=== PATIENT | female | born 1935 | race Caucasian/White ===

== ENCOUNTER 2017-06-29 09:30 | Inpatient (IN) | payer MEDICARE, SELFPAY ==
[2017-06-07 09:55] VITALS: BP 132/88; PULSE 75; RESP 16; TEMP 37.1; O2SAT 95; BMI 32.9
--- NOTE | 2017-06-07 10:26 | SDCEKG_ITS ---
Test Reason : Blood Pressure : / mmHG Vent. Rate : 071 BPM Atrial Rate : 071 BPM P-R Int : 200 ms QRS Dur : 078 ms QT Int : 408 ms P-R-T Axes : 064 012 066 degrees QTc Int : 443 ms Normal sinus rhythm Normal ECG Confirmed by VICKY DOVER ([id number]), scientific editor ISAAC BAEZ ([id number] on 06/13/2017 10:00:36 AM Referred By: Jhon Stallings Confirmed By:VICKY DOVER
[2017-06-07 11:02] LABS: Hematocrit 37.4 % (37-47); Hemoglobin 12.2 g/dl (12.0-15.0); Mean Corp Hgb Conc 32.6 g/gl (32-36); Mean Corpuscular Hgb 29.9 pg (27.0-32.0); Mean Corpuscular Volume 91.7 fL (81-99); Mean Platelet Vol. 10.5 fl (6.2-12.0); Platelet Count 285 K/mm3 (150-450); RBC Distribution Width CV 13.4 % (11.6-14.6); RBC Distribution Width SD 44.8 fl (35.1-43.9); Red Blood Count 4.08 M/mm3 (4.2-5.4); White Blood Count 7.6 K/mm3 (4.4-11.0)
[2017-06-07 11:21] LABS: Scan Indicated on CBC? Y/N NO
[2017-06-07 11:34] LABS: Anion Gap 9 (5-15); BUN 16 mg/dL (7-18); BUN/Creat Ratio 16.9 RATIO (10-20); Calcium,Total 8.8 mg/dL (8.5-10.1); Chloride 106 mmol/L (98-107); Creatinine, Serum 0.94 mg/dL (0.55-1.02); EST Glomerular Filtration Rate 60 mL/min (>60); Est Glom Filt Rate - Afr Amer 73 mL/min (>60); Estimated Creatinine Clearance 37.12 ml/min; Glucose 92 mg/dL (70-110); Potassium 4.1 mmol/L (3.5-5.1); Sodium Level 141 mmol/L (136-145)
[2017-06-29] VITALS (15 sets, daily range): BP systolic 121–184; BP diastolic 54–88; PULSE 75–91; RESP 16–18; TEMP 36.1–36.8; O2SAT 92–97; BMI 32.9
[2017-06-29] MEDS: Celecoxib 200 MG Capsule 400 MG PO (10:24)
[2017-06-29] MEDS: Acetaminophen 500 MG Tablet 1000 MG PO ×2 (10:24→20:20)
[2017-06-29] MEDS: oxyCODONE HCl Cr 10 MG Tablet PO (10:25)
[2017-06-29] MEDS: Cefazolin 2 GM in 0.9% Normal Saline 100 ML IV (11:41)
--- NOTE | 2017-06-29 14:15 | RAD_ITS ---
STUDY: X-RAY - RIGHT KNEE REASON FOR EXAM: Female, 81 years old. Total knee replacement. TECHNIQUE: AP and lateral view(s) of the knee. COMPARISON: Comparison is made with prior study dated October 17, 2016. FINDINGS: Normal visualized distal femur. Normal visualized proximal tibia and fibula. Normal proximal tibiofibular articulation. The patient is status post total knee replacement. There is good alignment. Postoperative soft tissue changes. RAD/Knee 1 or 2 Views IMPRESSION: Status post total knee replacement. There is good alignment. Postoperative soft tissue changes. Electronically Signed: Arnaldo Rosenthal MD at 14:51 EST Tel [phone], Service support ,
[2017-06-29] MEDS: Ondansetron 4 MG/2 ML Vial IV (16:54)
[2017-06-29] MEDS: Cefazolin 1 GM/50 ML BAG IV (20:00)
[2017-06-29] MEDS: Senna/Docusate Sodium 1 Tablet 2 TABLET PO (20:19)
[2017-06-29] MEDS: Metoprolol Tartrate 25 MG Tablet PO (20:20)
[2017-06-29] MEDS: Lactated Ringers 1,000 ML 125 ML IV (20:22)
[2017-06-30] VITALS (8 sets, daily range): BP systolic 123–153; BP diastolic 56–76; PULSE 72–81; RESP 16–18; TEMP 36.3–37.5; O2SAT 93–95
[2017-06-30] MEDS: Cefazolin 1 GM/50 ML BAG IV (04:19)
[2017-06-30] MEDS: 0.9% NaCl Peripheral Flush Adult/Peds IV (05:47)
[2017-06-30] MEDS: Levothyroxine 137 MCG Tablet PO (05:48)
[2017-06-30] MEDS: Acetaminophen 500 MG Tablet 1000 MG PO ×3 (05:48→21:57)
[2017-06-30 05:57] LABS: Hematocrit 32.9 % (37-47); Hemoglobin 10.7 g/dl (12.0-15.0); Mean Corp Hgb Conc 32.5 g/gl (32-36); Mean Corpuscular Hgb 30.4 pg (27.0-32.0); Mean Corpuscular Volume 93.5 fL (81-99); Mean Platelet Vol. 10.7 fl (6.2-12.0); Platelet Count 247 K/mm3 (150-450); Red Blood Count 3.52 M/mm3 (4.2-5.4); White Blood Count 9.5 K/mm3 (4.4-11.0)
[2017-06-30 06:07] LABS: Scan Indicated on CBC? Y/N NO
[2017-06-30 06:11] LABS: Anion Gap 6 (5-15); BUN 14 mg/dL (7-18); BUN/Creat Ratio 15.9 RATIO (10-20); Calcium,Total 8.2 mg/dL (8.5-10.1); Chloride 107 mmol/L (98-107); Creatinine, Serum 0.88 mg/dL (0.55-1.02); EST Glomerular Filtration Rate 65 mL/min (>60); Est Glom Filt Rate - Afr Amer 79 mL/min (>60); Estimated Creatinine Clearance 39.65 ml/min; Glucose 114 mg/dL (74-106); Potassium 4.2 mmol/L (3.5-5.1); Sodium Level 141 mmol/L (136-145)
--- NOTE | 2017-06-30 07:32 | PN.ORTHO_ITS ---
Subjective: Patient is resting comfortably in chair at bedside during exam. No adverse events overnight. Patient denies any pain in the right knee. It has been well controlled. She currently denies chest pain, shortness of breath, dizziness, calf pain. Doing well overall. She admits that she lives alone at home and would not be safe for a discharge to home following surgery. She would like to consider discharge to transitional care unit versus fourth floor rehab. She will discuss this with case management. Objective: Patient is alert and oriented ?3. No acute distress at rest. Breathing easily without respiratory distress. Inspection of right knee reveals a dressing that is clean, dry, intact. Negative Kimi bilaterally. Without signs of DVT. Sensation intact light touch bilateral lower extremities. Able to actively plantar and dorsiflex bilateral feet against resistance. Pedal pulses present + 2 bilaterally. Neurovascularly intact. - Physical Exam Vital Signs Temp Pulse Resp BP Pulse Ox 98.9 F 75 16 133/56 H 93 06/30/17 07:22 06/30/17 07:22 06/30/17 07:22 06/30/17 07:22 06/30/17 07:22 Oxygen Delivery Method Room Air Weight: 81.647 kg Body Mass Index (BMI) 32.9 Intake and Output for Last 24 Hours 06/28/17 06/29/17 06/30/17 23:59 23:59 23:59 Intake Total 1669 / 1669 1622 / 1622 Output Total 500 / 500 1125 / 1125 Balance 1169 / 1169 497 / 497 Laboratory Tests Past 24 Hrs 06/30/17 06/30/17 05:12 05:12 WBC 9.5 RBC 3.52 L Hgb 10.7 L Hct 32.9 L MCV 93.5 MCH 30.4 MCHC 32.5 RDW 13.0 RDW Differential 43.0 Plt Count 247 MPV 10.7 Sodium 141 Potassium 4.2 Chloride 107 Carbon Dioxide 28.0 Anion Gap 6 BUN 14 Creatinine 0.88 Estim Creat Clear Calc 39.65 Est GFR (MDRD) Af Amer 79 Est GFR (MDRD) Non-Af 65 BUN/Creatinine Ratio 15.9 Glucose 114 H Calcium 8.2 L Assessment/Plan 1. Status post right TKA; postop day #1 2. Continue Tylenol and OxyIR for pain control 3. DVT prophylaxis; bilateral teds, SCDs and begin aspirin therapy 4. Begin PT/OT; weightbearing as tolerated 5. Drop in hemoglobin/hematocrit, asymptomatic. Without indication for transfusion continue to monitor. 6. Encourage incentive spirometry 7. Continue discharge planning with case management. Will plan for discharge to transitional care unit versus floor floor rehab with insurance approval.
--- NOTE | 2017-06-30 07:36 | PCM.DC.TKR ---
Discharge Diet: No Restrictions Discharge Activity: May Not Drive, May not drive while taking narcotic pain medications., Use Walker May shower in (days): 2 - Okay to shower over Mepilex dressing Ice area for (Minutes): 20 - every hour while awake. Weight Bearing Status: Weight bearing as tolerated Elevate: Operative Extremity Additional Activity Instructions:: Wear elastic stockings for 2 weeks after your surgery. See postoperative pink sheet Call your doctor if your incision/area has: Continuous Slow Oozing, Sudden Increased Bleeding, Increased Pain/ Swelling, Increased Redness, Foul Smelling Discharge Call your doctor if you observe: Fever of 101 or Higher, Coldness, Increased Pain, Numbness or Tingling, Change in Color, Chest pain, Calf discomfort, Uncontrolled pain Remove Dressing in (days):: 5 Cleanse incision/area with: Soap & Water Additional Dressing/Incision Instructions:: See postoperative pink sheet Allergies/Adverse Reactions: Allergies Penicillins Allergy (Verified 06/07/17 09:50) Unknown Medications to take at Discharge Levothyroxine [Synthroid] 150 mcg PO DAILY 05/15/15 Metoprolol Tartrate [Lopressor (beta guy)] 25 mg PO BID 05/15/15 Raloxifene HCl [Evista] 60 mg PO DAILY 06/07/17 losartan 100 mg tablet 100 mg PO QDAY 06/19/17 Acetaminophen [Tylenol] 1,000 mg PO Q8 tablet 06/30/17 Aspirin 325 mg PO BIDCM tablet 06/30/17 Famotidine [Pepcid] 20 mg PO DAILY tablet 06/30/17 Oxycodone [Oxyir] 5 - 10 mg PO Q4H PRN PRN 7 Days #56 tab 06/30/17 Senna/Docusate Sodium [Senokot-S] 2 tablet PO BID tablet 06/30/17 The following prescriptions were given: Oxycodone [Oxyir] 5 - 10 mg PO Q4H PRN PRN 7 Days #56 tab PRN Reason: Mod-Severe Pain (4-02/21) Primary Care Physician: Melvin Weber [Primary Care Provider] - Proposed Discharge Date: 07/01/17
[2017-06-30] MEDS: Senna/Docusate Sodium 1 Tablet 2 TABLET PO ×2 (07:41→21:57)
[2017-06-30] MEDS: Famotidine 20 MG Tablet PO (07:41)
[2017-06-30] MEDS: Aspirin 325 MG Tablet PO ×2 (07:41→17:00)
[2017-06-30] MEDS: Raloxifene HCl 60 MG Tablet PO (07:41)
[2017-06-30] MEDS: Metoprolol Tartrate 25 MG Tablet PO ×2 (07:41→21:57)
--- NOTE | 2017-06-30 08:59 | CASEMGMT ---
Social Work Note Face to face with the pt to discuss discharge planning. Introduced self and role at [facility]. The pt reports to live alone in a one-story home. Family lives locally, but pt would like to get therapy at a SNF prior to discharging home for safety concerns. States she would like to go to [facility] or TCU. Informed that her insurance will not approve [facility], but SW will call TCU to check on bed availability. Educate to pre-cert process and pt expresses understanding. SW to continue to follow and assist with discharge planning. Placed call to [facility] and [facility] requesting placement on TCU. Plan: SNF pending acceptance and pre-cert. Kellee Feng, EDUCATION NURSE, MECHANIC CHIEF
--- NOTE | 2017-06-30 12:17 | CASEMGMT ---
Social Work Note Call from [facility] stating that she can accept and will initiate pre-cert. Anticipate pt being here through weekend. Pt updated that TCU can accept and we are awaiting pre-cert. SW to continue to follow and assist with discharge planning. Plan: TCU pending pre-cert. KESLI HartW
--- NOTE | 2017-06-30 12:44 | NURSING ---
Pt. out of room for lunch.
--- NOTE | 2017-06-30 15:05 | CASEMGMT ---
Social Work Note Call from [facility] stating that pre-cert was obtained and pt may discharge once medically stable. Green sheet placed on the chart to follow for weekend discharge. Plan: TCU for rehabilitation. Kellee Feng MSW, DISABILITY AIDE
--- NOTE | 2017-06-30 19:34 | NURSING ---
Family concerned about patient being forgetful and confused at times- scop patch removed at this time.
[2017-07-01 03:50] VITALS: BP 148/71; PULSE 75; RESP 18; TEMP 36.6; O2SAT 96
[2017-07-01] MEDS: oxyCODONE 5 MG Tablet PO ×2 (03:57→12:12)
[2017-07-01 04:15] VITALS: PULSE 75; RESP 18; O2SAT 96
[2017-07-01] MEDS: Acetaminophen 500 MG Tablet 1000 MG PO (06:05)
[2017-07-01] MEDS: Levothyroxine 137 MCG Tablet PO (06:05)
[2017-07-01 07:02] LABS: Hematocrit 33.2 % (37-47); Hemoglobin 10.7 g/dl (12.0-15.0); Mean Corp Hgb Conc 32.2 g/gl (32-36); Mean Corpuscular Hgb 30.2 pg (27.0-32.0); Mean Corpuscular Volume 93.8 fL (81-99); Platelet Count 245 K/mm3 (150-450); RBC Distribution Width CV 13.1 % (11.6-14.6); RBC Distribution Width SD 43.3 fl (35.1-43.9); Red Blood Count 3.54 M/mm3 (4.2-5.4); White Blood Count 11.1 K/mm3 (4.4-11.0)
[2017-07-01 07:04] LABS: Scan Indicated on CBC? Y/N NO
[2017-07-01 08:29] VITALS: BP 133/54; PULSE 71; RESP 16; TEMP 36.6; O2SAT 96
[2017-07-01 08:40] VITALS: PULSE 71
[2017-07-01] MEDS: Aspirin 325 MG Tablet PO (08:40)
[2017-07-01] MEDS: Senna/Docusate Sodium 1 Tablet 2 TABLET PO (08:40)
[2017-07-01] MEDS: Metoprolol Tartrate 25 MG Tablet PO (08:40)
[2017-07-01] MEDS: Raloxifene HCl 60 MG Tablet PO (08:40)
[2017-07-01] MEDS: Famotidine 20 MG Tablet PO (08:40)
--- NOTE | 2017-07-01 10:18 | PN.ORTHO_ITS ---
Subjective: The patient was sitting in bedside chair upon examination. Patient denies any chest pain, shortness of breath, dizziness, lightheadedness, nausea or vomiting , or calf pain. Pain is controlled on medications. No adverse overnight events. Overall patient is doing well. Plan is for discharge to transitional care unit today. Objective: Vital signs stable and afebrile. Patient is able to plantarflex and dorsiflex actively. Sensation is intact to light touch to saphenous, sural, superficial and deep peroneal, and tibial distribution. Dressing is clean dry and intact. Negative Homans bilaterally, negative signs and symptoms of DVT. - Physical Exam General: Alert, Oriented x3, Cooperative, No apparent distress Vital Signs Temp Pulse Resp BP Pulse Ox 97.9 F 71 16 133/54 H 96 07/01/17 08:29 07/01/17 08:40 07/01/17 08:29 07/01/17 08:29 07/01/17 08:29 Oxygen Delivery Method Room Air Weight: 81.647 kg Body Mass Index (BMI) 32.9 Intake and Output for Last 24 Hours 06/29/17 06/30/17 07/01/17 23:59 23:59 23:59 Intake Total 1669 / 1669 2472 / 2472 500 / 500 Output Total 500 / 500 1375 / 1375 1300 / 1300 Balance 1169 / 1169 1097 / 1097 -800 / -800 Laboratory Tests Past 24 Hrs 07/01/17 05:50 WBC 11.1 H RBC 3.54 L Hgb 10.7 L Hct 33.2 L MCV 93.8 MCH 30.2 MCHC 32.2 RDW 13.1 RDW Differential 43.3 Plt Count 245 MPV 11.0 Assessment/Plan 1. S/P right total knee arthroplasty POD #2 2. Continue Pain Medications: Tylenol and OxyIR 3. DVT Prophylaxis: Aspirin 325 mg twice daily 4. PT/OT: Bearing as tolerated 5. Encouraged Incentive Spirometry 6. Disposition: Orthopedically stable, plan is for discharge to transitional care unit today. Prescriptions are attached to chart. Patient will follow-up per postop instructions.
--- NOTE | 2017-07-01 13:08 | NURSING ---
TCU CALLED FOR TRANSFER OF PT, WAS INFORMED THAT CHARGE NURSE WILL RETURN CALL AFTER PT CARE.
--- NOTE | 2017-07-01 13:26 | NURSING ---
REPORT CALLED TO RAJESH, CHARGE NURSE IN TCU. OK TO SEND PT OVER NOW.
[2017-07-01 13:41] VITALS: BP 132/93; PULSE 87; RESP 16; TEMP 36.7; O2SAT 99
== END 2017-07-01 13:53 | DRG 470 ==
LOC: ACINP 09:34 → MS3 12:19
PROVIDERS: Admitting Provider Orthopaedic Surgery; Visit Provider Orthopaedic Surgery
PROC: 0SRC069 Replacement of Right Knee Joint with Oxidized Zirconium on Polyethylene Synthetic Substitute, Cemented, Open Approach (ICD-10-PCS; CPT 27447; principal; 2017-06-29 11:10)
DX: M17.11 Unilateral primary osteoarthritis, right knee (principal); I73.9 Peripheral vascular disease, unspecified; R71.0 Precipitous drop in hematocrit; E07.9 Disorder of thyroid, unspecified; E78.00 Pure hypercholesterolemia, unspecified; I10 Essential (primary) hypertension; Z79.82 Long term (current) use of aspirin; Z79.899 Other long term (current) drug therapy; Z87.440 Personal history of urinary (tract) infections
CPT/HCPCS: 36415; 73560; 80048; 85027; 93005; 94762; 97110; 97116; 97162; 97166; 97530; 97535; J7120; A4216; J2405

== ENCOUNTER 2017-07-01 14:00 | Inpatient (IN) | payer MEDICARE, SELFPAY ==
[2017-07-01 14:22] VITALS: BP 131/49; PULSE 80; RESP 18; TEMP 37.4; O2SAT 96
--- NOTE | 2017-07-01 14:26 | NURSING ---
PT ARRIVED FROM [facility] VIA WC
[2017-07-01 15:11] VITALS: BMI 32.9
[2017-07-01 15:29] VITALS: BMI 33.8
--- NOTE | 2017-07-01 16:07 | NURSING ---
on admission pt with increased confusion to TCU per son report. Pt noted to have first doses of oxyir early and then again at noon. pt also reported that she has a history of UTI's. Dr Richardson notified, new order for UA via st cath and DC oxyir and restart Ultram.
[2017-07-01 16:45] VITALS: BP 144/62; PULSE 80; RESP 18; TEMP 37.5; O2SAT 95
[2017-07-01 18:20] VITALS: BP 144/62; PULSE 80
[2017-07-01] MEDS: Metoprolol Tartrate 25 MG Tablet PO (18:20)
[2017-07-01] MEDS: Senna/Docusate Sodium 1 Tablet 2 TABLET PO (18:21)
[2017-07-01] MEDS: Aspirin 325 MG Tablet PO (18:21)
[2017-07-01 20:20] VITALS: TEMP 38
[2017-07-01] MEDS: Acetaminophen 500 MG Tablet 1000 MG PO (20:22)
--- NOTE | 2017-07-01 20:51 | PCM.HP.STD ---
Problem List (1) Osteoarthritis of right knee Status: Chronic (2) GERD (gastroesophageal reflux disease) Status: Chronic (3) Osteoporosis Status: Chronic (4) Factor V Leiden Status: Chronic (5) Hypothyroidism Status: Chronic (6) Hypertension Status: Chronic History of Present Illness Date of Admission: 07/01/17 Chief Complaint: Here for rehabilitation, strengthening, prior to discharge home. The patient is a 81 year old Female with below past medical history hospitalized for right total knee arthroplasty 06/29/[address] Stallings. 07/01/2017 Admit to TCU for rehabilitation, strengthening, prior to discharge home alone. Past Medical History Past Medical History (Chronic Problems): Chronic Problems (Last Updated 06/19/17 @ 12:21 by Kathryn Bear) Osteoarthritis of right knee (Chronic) GERD (gastroesophageal reflux disease) (Chronic) Osteoporosis (Chronic) Factor V Leiden (Chronic) Hypothyroidism (Chronic) Hypertension (Chronic) Hyperlipidemia (Chronic) Paroxysmal atrial fibrillation (Chronic) Allergies Penicillins Allergy (Verified 06/07/17 09:50) Unknown Home Medications: Ambulatory Orders Medication Instructions Recorded Levothyroxine [Synthroid] 150 mcg PO DAILY 05/15/15 Metoprolol Tartrate [Lopressor 25 mg PO BID 05/15/15 (beta guy)] Raloxifene HCl [Evista] 60 mg PO DAILY 06/07/17 losartan 100 mg tablet 100 mg PO QDAY 06/19/17 Oxycodone [Oxyir] 5 - 10 mg PO Q4H PRN PRN 7 Days 06/30/17 #56 tab Acetaminophen [Tylenol] 1,000 mg PO Q8 07/01/17 Aspirin 325 mg PO BIDCM 07/01/17 Famotidine [Pepcid] 20 mg PO DAILY 07/01/17 Senna/Docusate Sodium [Senokot-S] 2 tablet PO BID 07/01/17 Surgical History: total knee arthroplasty - Right. 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 Denies: Abdominal Pain, Nausea, Vomiting Genitourinary: Denies: Dysuria Musculoskeletal: Denies: Joint Pain, Joint Tenderness Skin: Denies: Rash, Wounds Neurological: Denies: Numbness, Tingling, Focal weakness Psychiatric: Denies: Anxiety, Depression, Homicidal Ideations, Suicidal Ideations Hematologic/ Lymphatic: Denies: Easy Bruising, Easy Bleeding VTE Information - Inpt Only VTE Present on Admission: No VTE Mechan Device Prophylaxis: Knee High MANJINDER Hose VTE Pharm Prophylaxis ordered?: Yes - Physical Exam General: Alert, Oriented x3, Cooperative HEENT: Atraumatic, PERRLA, EOMI, Normocephalic Neck: Supple, No JVD, Negative Carotid Bruits Lungs: Clear to auscultation, Normal air movement Cardiovascular: Regular rate, No murmurs Abdomen: Bowel Sounds Present, Soft, Non Tender Extremities: No edema, Capillary Refill Less than 3 Seconds Skin: No rashes, No breakdown, Incision - Right knee clean, dry, intact. Musculoskeletal: No Tenderness to Palpation of Joints or Extremities Neurological: Cranial nerves II-XII grossly intact Psych/Mental Status: Normal Affect, Appropriate Vital Signs Temp Pulse Resp BP Pulse Ox 99.5 F H 80 18 144/62 H 95 07/01/17 16:45 07/01/17 18:20 07/01/17 16:45 07/01/17 18:20 07/01/17 16:45 Oxygen Delivery Method Room Air Weight: 83.461 kg Body Mass Index (BMI) 33.8 Intake and Output for Last 24 Hours 06/29/17 06/30/17 07/01/17 23:59 23:59 23:59 Intake Total 180 / 180 Output Total 150 / 150 Balance 30 / 30 Assessment/Plan 81 year old female with below past medical history hospitalized for right total knee arthroplasty 06/29/[address] Stallings, admitted to TCU for rehabilitation, strengthening, prior to discharge home alone. Debility - PT/OT. Pain - Tylenol 1000MG Q8H, Tramadol 50MG Q6H PRN moderate pain. Bowel - Miralax 17GM daily, Senna/colace 2 tablets BID, Dulcolax 10MG PO daily PRN. Pneumonia vaccination - Administer Prevnar 13 and/or Pneumovax 23 as necessary. DVT prophylaxis - Aspirin 325MG BID. GERD - Famotidine 20MG daily. Hypothyroidism - Levothyroxine 150MCG daily. Hypertension - Losartan 100MG daily, Metoprolol 25MG BID. Osteoporosis - Evista 60MG daily.
[2017-07-01 20:52] LABS: Bacteria 0 SEEN /hpf (None Seen); Mucous, Urine 0 SEEN /hpf (<or=2+)
--- NOTE | 2017-07-01 20:59 | HP.PCM_ITS ---
Problem List (1) Osteoarthritis of right knee Status: Chronic (2) GERD (gastroesophageal reflux disease) Status: Chronic (3) Osteoporosis Status: Chronic (4) Factor V Leiden Status: Chronic (5) Hypothyroidism Status: Chronic (6) Hypertension Status: Chronic History of Present Illness Date of Admission: 07/01/17 Chief Complaint: Here for rehabilitation, strengthening, prior to discharge home. The patient is a 81 year old Female with below past medical history hospitalized for right total knee arthroplasty 06/29/[address] Stallings. 07/01/2017 Admit to TCU for rehabilitation, strengthening, prior to discharge home alone. Past Medical History Past Medical History (Chronic Problems): Chronic Problems (Last Updated 06/19/17 @ 12:21 by Kathryn Bear) Osteoarthritis of right knee (Chronic) GERD (gastroesophageal reflux disease) (Chronic) Osteoporosis (Chronic) Factor V Leiden (Chronic) Hypothyroidism (Chronic) Hypertension (Chronic) Hyperlipidemia (Chronic) Paroxysmal atrial fibrillation (Chronic) Allergies Penicillins Allergy (Verified 06/07/17 09:50) Unknown Home Medications: Ambulatory Orders Medication Instructions Recorded Levothyroxine [Synthroid] 150 mcg PO DAILY 05/15/15 Metoprolol Tartrate [Lopressor 25 mg PO BID 05/15/15 (beta guy)] Raloxifene HCl [Evista] 60 mg PO DAILY 06/07/17 losartan 100 mg tablet 100 mg PO QDAY 06/19/17 Oxycodone [Oxyir] 5 - 10 mg PO Q4H PRN PRN 7 Days 06/30/17 #56 tab Acetaminophen [Tylenol] 1,000 mg PO Q8 07/01/17 Aspirin 325 mg PO BIDCM 07/01/17 Famotidine [Pepcid] 20 mg PO DAILY 07/01/17 Senna/Docusate Sodium [Senokot-S] 2 tablet PO BID 07/01/17 Surgical History: total knee arthroplasty - Right. 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 Denies: Abdominal Pain, Nausea, Vomiting Genitourinary: Denies: Dysuria Musculoskeletal: Denies: Joint Pain, Joint Tenderness Skin: Denies: Rash, Wounds Neurological: Denies: Numbness, Tingling, Focal weakness Psychiatric: Denies: Anxiety, Depression, Homicidal Ideations, Suicidal Ideations Hematologic/ Lymphatic: Denies: Easy Bruising, Easy Bleeding VTE Information - Inpt Only VTE Present on Admission: No VTE Mechan Device Prophylaxis: Knee High MANJINDER Hose VTE Pharm Prophylaxis ordered?: Yes - Physical Exam General: Alert, Oriented x3, Cooperative HEENT: Atraumatic, PERRLA, EOMI, Normocephalic Neck: Supple, No JVD, Negative Carotid Bruits Lungs: Clear to auscultation, Normal air movement Cardiovascular: Regular rate, No murmurs Abdomen: Bowel Sounds Present, Soft, Non Tender Extremities: No edema, Capillary Refill Less than 3 Seconds Skin: No rashes, No breakdown, Incision - Right knee clean, dry, intact. Musculoskeletal: No Tenderness to Palpation of Joints or Extremities Neurological: Cranial nerves II-XII grossly intact Psych/Mental Status: Normal Affect, Appropriate Vital Signs Temp Pulse Resp BP Pulse Ox 99.5 F H 80 18 144/62 H 95 07/01/17 16:45 07/01/17 18:20 07/01/17 16:45 07/01/17 18:20 07/01/17 16:45 Oxygen Delivery Method Room Air Weight: 83.461 kg Body Mass Index (BMI) 33.8 Intake and Output for Last 24 Hours 06/29/17 06/30/17 07/01/17 23:59 23:59 23:59 Intake Total 180 / 180 Output Total 150 / 150 Balance 30 / 30 Assessment/Plan 81 year old female with below past medical history hospitalized for right total knee arthroplasty 06/29/[address] Stallings, admitted to TCU for rehabilitation , strengthening, prior to discharge home alone. * Debility - PT/OT. * Pain - Tylenol 1000MG Q8H, Tramadol 50MG Q6H PRN moderate pain. * Bowel - Miralax 17GM daily, Senna/colace 2 tablets BID, Dulcolax 10MG PO daily PRN. * Pneumonia vaccination - Administer Prevnar 13 and/or Pneumovax 23 as necessary. * DVT prophylaxis - Aspirin 325MG BID. * GERD - Famotidine 20MG daily. * Hypothyroidism - Levothyroxine 150MCG daily. * Hypertension - Losartan 100MG daily, Metoprolol 25MG BID. * Osteoporosis - Evista 60MG daily.
[2017-07-01 21:01] LABS: Color, Urine Yellow (Yellow); Glucose, Dipstick Normal (Normal); Ketone-Dipstick Negative (Negative); Leukocyte Esterase-Dipstick 25 /ul (Negative); Nitrite-Dipstick Negative (Negative); Occult Blood-Urine 10 /ul (Negative); Protein-Dipstick 30 mg/dl (Negative); Specific Gravity, Urine 1.025 (1.002-1.030); Urine Bilirubin Dipstick Negative (Negative); Urine Clarity Sl. Cloudy (Clear); Urine Urobilinogen Normal (Normal)
[2017-07-01 21:07] LABS: Red Blood Cells-Urine 0-5 SEEN /hpf (0-5); Squamous Epithelial Cells - UA 0-5 SEEN /hpf (5-10); White Blood Cells 0-5 SEEN /hpf (0-5)
[2017-07-01 21:20] VITALS: TEMP 37.3
--- NOTE | 2017-07-01 21:46 | NURSING ---
Dr. Richardson reviewed UA, urine culture ordered. Pt and family updated.
[2017-07-02 06:00] VITALS: BP 137/61; PULSE 78
[2017-07-02] MEDS: Raloxifene HCl 60 MG Tablet PO (06:00)
[2017-07-02] MEDS: Levothyroxine 150 MCG Tablet PO (06:00)
[2017-07-02] MEDS: Senna/Docusate Sodium 1 Tablet 2 TABLET PO ×2 (06:00→18:38)
[2017-07-02] MEDS: Metoprolol Tartrate 25 MG Tablet PO ×2 (06:00→18:38)
[2017-07-02] MEDS: Losartan Potassium 100 MG Tablet PO (06:00)
[2017-07-02] MEDS: Acetaminophen 500 MG Tablet 1000 MG PO ×3 (06:00→20:30)
[2017-07-02] MEDS: Famotidine 20 MG Tablet PO (06:00)
[2017-07-02] MEDS: Polyethylene Glycol 3350 17 GM PACKET PO (06:00)
[2017-07-02 06:49] LABS: Absolute Lymphocyte Count 1.68 X10^3/ul (0.83-4.51); Absolute Neutrophil Count 6.5 X10^3/uL (2.0-7.7); Basophil# 0.05 X10^3/uL; Basophil% 0.5 % (0-1); Eosinophil# 0.25 X10^3/uL; Eosinophils% 2.7 % (0-5); Hematocrit 29.9 % (37-47); Hemoglobin 9.7 g/dl (12.0-15.0); Lymphocyte # 1.68 X10^3/ul (4.0); Lymphocyte % 18.2 % (19-41); Mean Corp Hgb Conc 32.4 g/gl (32-36); Mean Corpuscular Hgb 30.5 pg (27.0-32.0); Mean Platelet Vol. 10.9 fl (6.2-12.0); Monocyte# 0.78 X10^3/uL; Monocyte% 8.4 % (0-10); Neutrophil # 6.47 X10^3/uL (2.7-7.7); Platelet Count 253 K/mm3 (150-450); Red Blood Count 3.18 M/mm3 (4.2-5.4); White Blood Count 9.3 K/mm3 (4.4-11.0)
[2017-07-02 06:50] VITALS: O2SAT 94
[2017-07-02 06:50] LABS: POSITIVE COUNT NO; POSITIVE DIFFERENTIAL NO; POSITIVE MORPHOLOGY NO
[2017-07-02 07:14] LABS: Anion Gap 6 (5-15); BUN 14 mg/dL (7-18); BUN/Creat Ratio 19.2 RATIO (10-20); Chloride 108 mmol/L (98-107); Creatinine, Serum 0.73 mg/dL (0.55-1.02); EST Glomerular Filtration Rate 81 mL/min (>60); Est Glom Filt Rate - Afr Amer 98 mL/min (>60); Estimated Creatinine Clearance 33.29 ml/min; Glucose 96 mg/dL (74-106); Potassium 3.9 mmol/L (3.5-5.1); Sodium Level 140 mmol/L (136-145)
[2017-07-02] MEDS: Aspirin 325 MG Tablet PO ×2 (07:55→18:38)
[2017-07-02] MEDS: Tuberculin,Purif.prot.deriv. 50 TU/ML Vial 5 ML ID (10:33)
--- NOTE | 2017-07-02 14:35 | PHA.CONS_ITS ---
<Drew Richip D - Last Filed: 07/02/17 14:29> Progress Note - Pharmacy Subjective: TCU Admission Objective: Allergies Penicillins Allergy (Verified 06/07/17 09:50) Unknown Home Medications Medication Instructions Recorded Levothyroxine [Synthroid] 150 mcg PO DAILY 05/15/15 Metoprolol Tartrate [Lopressor 25 mg PO BID 05/15/15 (beta ceferino)] Raloxifene HCl [Evista] 60 mg PO DAILY 06/07/17 losartan 100 mg tablet 100 mg PO QDAY 06/19/17 Oxycodone [Oxyir] 5 - 10 mg PO Q4H PRN PRN 7 Days 06/30/17 #56 tab Acetaminophen [Tylenol] 1,000 mg PO Q8 07/01/17 Aspirin 325 mg PO BIDCM 07/01/17 Famotidine [Pepcid] 20 mg PO DAILY 07/01/17 Senna/Docusate Sodium [Senokot-S] 2 tablet PO BID 07/01/17 Current Medications Generic Name Dose Route Start Last Admin Trade Name Freq PRN Reason Stop Dose Admin Acetaminophen 1,000 mg 07/01/17 22:00 07/02/17 13:06 Tylenol PO 1,000 mg Q8 CONNIE Administration Aspirin 325 mg 07/01/17 17:00 07/02/17 07:55 Aspirin PO 07/15/17 17:01 325 mg BIDCM CONNIE Administration Bisacodyl 10 mg 07/01/17 20:59 Dulcolax PO DAILY PRN Constipation Famotidine 20 mg 07/02/17 06:00 07/02/17 06:00 Pepcid PO 20 mg DAILY CONNIE Administration Levothyroxine Sodium 150 mcg 07/02/17 06:00 07/02/17 06:00 Synthroid PO 150 mcg DAILY@0600 CONNIE Administration Losartan Potassium 100 mg 07/02/17 06:00 07/02/17 06:00 Cozaar PO 100 mg DAILY CONNIE Administration Metoprolol Tartrate 25 mg 07/01/17 18:00 07/02/17 06:00 Lopressor (Beta Ceferino) PO 25 mg BID CONNIE Administration Polyethylene Glycol 17 gm 07/02/17 06:00 07/02/17 06:00 Miralax PO 17 gm DAILY CONNIE Administration Raloxifene HCl 60 mg 07/02/17 06:00 07/02/17 06:00 Evista PO 60 mg DAILY CONNIE Administration Senna/Docusate Sodium 2 tablet 07/01/17 18:00 07/02/17 06:00 Senokot-S, Carli-Colace PO 2 tablet BID CONNIE Administration Tramadol HCl 50 mg 07/01/17 15:49 07/01/17 20:21 Ultram (G) PO 50 mg Q6H PRN PRN Administration MODERATE PAIN (4-5/10) Tuberculin PPD 5 tu 07/09/17 10:00 Tubersol, Aplisol, Ppd ID 07/09/17 10:01 X1 ONE Problem List (Last Updated 06/19/17 @ 12:21 by Kathryn Bear) Osteoarthritis of right knee (Chronic) GERD (gastroesophageal reflux disease) (Chronic) Osteoporosis (Chronic) Factor V Leiden (Chronic) Vital Signs Temp Pulse Resp BP Pulse Ox 99.2 F H 78 18 137/61 H 94 07/01/17 21:20 07/02/17 06:00 07/01/17 16:45 07/02/17 06:00 07/02/17 06:50 Oxygen Delivery Method Room Air Weight: 83.461 kg Body Mass Index (BMI) 33.8 Sodium 140 mmol/L (136-145) 07/02/17 06:12 Potassium 3.9 mmol/L (3.5-5.1) 07/02/17 06:12 Chloride 108 mmol/L (98-107) H 07/02/17 06:12 Carbon Dioxide 26.0 mmol/L (21.0-32.0) 07/02/17 06:12 Anion Gap 6 (5-15) 07/02/17 06:12 BUN 14 mg/dL (7-18) 07/02/17 06:12 Creatinine 0.73 mg/dL (0.55-1.02) 07/02/17 06:12 Est GFR (MDRD) Af Amer 98 mL/min (>60) 07/02/17 06:12 Est GFR (MDRD) Non-Af 81 mL/min (>60) 07/02/17 06:12 BUN/Creatinine Ratio 19.2 RATIO (10-20) 07/02/17 06:12 Glucose 96 mg/dL (74-106) 07/02/17 06:12 Assessment/Plan: 1) Pain APAP scheduled, tramadol prn. Continue to monitor daily pain scores, prn medication use. 2) HTN Losartan, metoprolol. BP/HR within goal ranges, K wnl, BUN/SCr at baseline. Continue to monitor BP/HR, renal function, electrolytes. 3) Osteoporosis Raloxifene daily. Continue to monitor clinically. 4) Hypothyroidism Levothyroxine daily. Continue to monitor s/s hyper/hypothyroidism. 5) GI Famotidine daily. Continue to monitor s/s GI distress. 6) DVT PPx ASA twice daily until 07/15. Continue to monitor s/s bleeding/clot. Psychotropic Medications: None Unnecessary Medications: None Bowel Regimen: 7) Senna/s, PEG, prn bisacodyl. Continue to monitor prn medication use, for constipation/diarrhea. Date of Note:: 07/02/17 - Provider Comments Provider responsibility: Provider responsible to enter orders to implement recommendations <Arnaud Richardson Chi - Last Filed: 07/02/17 22:09> Progress Note - Pharmacy Subjective: [] Objective: Allergies Penicillins Allergy (Verified 06/07/17 09:50) Unknown Home Medications Medication Instructions Recorded Levothyroxine [Synthroid] 150 mcg PO DAILY 05/15/15 Metoprolol Tartrate [Lopressor 25 mg PO BID 05/15/15 (beta ceferino)] Raloxifene HCl [Evista] 60 mg PO DAILY 06/07/17 losartan 100 mg tablet 100 mg PO QDAY 06/19/17 Oxycodone [Oxyir] 5 - 10 mg PO Q4H PRN PRN 7 Days 06/30/17 #56 tab Acetaminophen [Tylenol] 1,000 mg PO Q8 07/01/17 Aspirin 325 mg PO BIDCM 07/01/17 Famotidine [Pepcid] 20 mg PO DAILY 07/01/17 Senna/Docusate Sodium [Senokot-S] 2 tablet PO BID 07/01/17 Current Medications Generic Name Dose Route Start Last Admin Trade Name Freq PRN Reason Stop Dose Admin Acetaminophen 1,000 mg 07/01/17 22:00 07/02/17 20:30 Tylenol PO 1,000 mg Q8 CONNIE Administration Aspirin 325 mg 07/01/17 17:00 07/02/17 18:38 Aspirin PO 07/15/17 17:01 325 mg BIDCM CONNIE Administration Bisacodyl 10 mg 07/01/17 20:59 07/02/17 14:39 Dulcolax PO 10 mg DAILY PRN Administration Constipation Famotidine 20 mg 07/02/17 06:00 07/02/17 06:00 Pepcid PO 20 mg DAILY CONNIE Administration Hydrocortisone 1 applic 07/02/17 19:01 Hytone TOPICAL BID PRN PRN SKIN IRRITATION/ITCHING Protocol Levothyroxine Sodium 150 mcg 07/02/17 06:00 07/02/17 06:00 Synthroid PO 150 mcg DAILY@0600 CONNIE Administration Losartan Potassium 100 mg 07/02/17 06:00 07/02/17 06:00 Cozaar PO 100 mg DAILY CONNIE Administration Metoprolol Tartrate 25 mg 07/01/17 18:00 07/02/17 18:38 Lopressor (Beta Ceferino) PO 25 mg BID CONNIE Administration Polyethylene Glycol 17 gm 07/02/17 06:00 07/02/17 06:00 Miralax PO 17 gm DAILY CONNIE Administration Raloxifene HCl 60 mg 07/02/17 06:00 07/02/17 06:00 Evista PO 60 mg DAILY CONNIE Administration Senna/Docusate Sodium 2 tablet 07/01/17 18:00 07/02/17 18:38 Senokot-S, Carli-Colace PO 2 tablet BID [facility] Administration Tramadol HCl 50 mg 07/01/17 15:49 07/02/17 20:46 Ultram (G) PO 50 mg Q6H PRN PRN Administration MODERATE PAIN (4-5/10) Tuberculin PPD 5 tu 07/09/17 10:00 Tubersol, Aplisol, Ppd ID 07/09/17 10:01 X1 ONE Problem List (Last Updated 06/19/17 @ 12:21 by Kathryn Bear) Osteoarthritis of right knee (Chronic) GERD (gastroesophageal reflux disease) (Chronic) Osteoporosis (Chronic) Factor V Leiden (Chronic) Vital Signs Temp Pulse Resp BP Pulse Ox 98.8 F 78 18 130/58 H 97 07/02/17 15:38 07/02/17 18:38 07/02/17 15:38 07/02/17 18:38 07/02/17 15:38 Oxygen Delivery Method Room Air Weight: 83.461 kg Body Mass Index (BMI) 33.8 Sodium 140 mmol/L (136-145) 07/02/17 06:12 Potassium 3.9 mmol/L (3.5-5.1) 07/02/17 06:12 Chloride 108 mmol/L (98-107) H 07/02/17 06:12 Carbon Dioxide 26.0 mmol/L (21.0-32.0) 07/02/17 06:12 Anion Gap 6 (5-15) 07/02/17 06:12 BUN 14 mg/dL (7-18) 07/02/17 06:12 Creatinine 0.73 mg/dL (0.55-1.02) 07/02/17 06:12 Est GFR (MDRD) Af Amer 98 mL/min (>60) 07/02/17 06:12 Est GFR (MDRD) Non-Af 81 mL/min (>60) 07/02/17 06:12 BUN/Creatinine Ratio 19.2 RATIO (10-20) 07/02/17 06:12 Glucose 96 mg/dL (74-106) 07/02/17 06:12 Assessment/Plan: Psychotropic Medications: Unnecessary Medications: Bowel Regimen: - Provider Comments Provider responsibility: Provider responsible to enter orders to implement recommendations Provider Comments to Recommendations by Pharmacy: Agree
[2017-07-02] MEDS: Bisacodyl 5 MG Tablet 10 MG PO (14:39)
[2017-07-02 15:38] VITALS: BP 130/58; PULSE 78; RESP 18; TEMP 37.1; O2SAT 97
[2017-07-02 18:38] VITALS: BP 130/58; PULSE 78
[2017-07-02 20:50] VITALS: PULSE 78; RESP 16; O2SAT 94
[2017-07-03 06:45] VITALS: O2SAT 93
[2017-07-03 06:56] VITALS: BP 136/78; PULSE 70
[2017-07-03] MEDS: Levothyroxine 150 MCG Tablet PO (06:56)
[2017-07-03] MEDS: Metoprolol Tartrate 25 MG Tablet PO ×2 (06:56→17:25)
[2017-07-03] MEDS: Polyethylene Glycol 3350 17 GM PACKET PO (06:56)
[2017-07-03] MEDS: Losartan Potassium 100 MG Tablet PO (06:56)
[2017-07-03] MEDS: Raloxifene HCl 60 MG Tablet PO (06:57)
[2017-07-03] MEDS: Famotidine 20 MG Tablet PO (06:58)
[2017-07-03] MEDS: Acetaminophen 500 MG Tablet 1000 MG PO ×3 (06:58→20:08)
[2017-07-03] MEDS: Senna/Docusate Sodium 1 Tablet 2 TABLET PO ×2 (06:58→17:25)
[2017-07-03] MEDS: Aspirin 325 MG Tablet PO ×2 (08:10→17:25)
[2017-07-03] MEDS: Magnesium Citrate 300 ML PO (11:25)
[2017-07-03 15:05] VITALS: BP 142/65; PULSE 78; RESP 16; TEMP 36.9; O2SAT 97
[2017-07-03 17:25] VITALS: BP 142/65; PULSE 78
[2017-07-04 05:23] VITALS: BP 150/87; PULSE 83
[2017-07-04] MEDS: Levothyroxine 150 MCG Tablet PO (05:23)
[2017-07-04] MEDS: Famotidine 20 MG Tablet PO (05:23)
[2017-07-04] MEDS: Metoprolol Tartrate 25 MG Tablet PO ×2 (05:23→17:23)
[2017-07-04] MEDS: Raloxifene HCl 60 MG Tablet PO (05:23)
[2017-07-04] MEDS: Losartan Potassium 100 MG Tablet PO (05:23)
[2017-07-04] MEDS: Acetaminophen 500 MG Tablet 1000 MG PO ×3 (05:24→21:57)
[2017-07-04] MEDS: Polyethylene Glycol 3350 17 GM PACKET PO (05:24)
[2017-07-04] MEDS: Senna/Docusate Sodium 1 Tablet 2 TABLET PO ×2 (05:24→17:23)
[2017-07-04] MEDS: Aspirin 325 MG Tablet PO ×2 (08:25→17:23)
[2017-07-04 09:43] VITALS: PULSE 75; RESP 18; O2SAT 97
--- NOTE | 2017-07-04 13:05 | CASEMGMT ---
Insurance Clinical information faxed. Pending continued stay approval at this time. Auth#[id number] Jennifer MEYER, BUNK HOUSE WORKER
[2017-07-04 15:23] VITALS: BP 153/79; PULSE 76; RESP 16; TEMP 37.2; O2SAT 97
[2017-07-04 17:23] VITALS: BP 153/79; PULSE 76
--- NOTE | 2017-07-05 04:33 | NURSING ---
Clip on personal alarm alerted this nurse to pt room where pt was observed out of bed, using walker, attempting to open bathroom door, but unable to do so, d/t walker. Offered to help and pt nudged or swatted away this nurses arm saying I can do it. Asked pt 'do you mind if I make sure you get there safely and help get you situated? Then I'll give you privacy and fix up your bed'. Pt seemed irritated by this but replied I guess if you have to but I can do it myself. Pt did pull cord when finished and allowed this nurse to reposition her in bed. Encouraged her to use call light prior to transfers, which was placed at her side. Clip on PA put back on night shirt and pt repositioned for comfort. Both RNs on duty aware of this. Continuing to monitor.
[2017-07-05] MEDS: Raloxifene HCl 60 MG Tablet PO (06:43)
[2017-07-05] MEDS: Losartan Potassium 100 MG Tablet PO (06:43)
[2017-07-05 06:44] VITALS: BP 151/82; PULSE 85
[2017-07-05] MEDS: Famotidine 20 MG Tablet PO (06:44)
[2017-07-05] MEDS: Polyethylene Glycol 3350 17 GM PACKET PO (06:44)
[2017-07-05] MEDS: Metoprolol Tartrate 25 MG Tablet PO ×2 (06:44→17:07)
[2017-07-05] MEDS: Senna/Docusate Sodium 1 Tablet 2 TABLET PO ×2 (06:45→17:07)
[2017-07-05] MEDS: Levothyroxine 150 MCG Tablet PO (06:45)
[2017-07-05] MEDS: Acetaminophen 500 MG Tablet 1000 MG PO ×3 (06:45→20:41)
[2017-07-05] MEDS: Aspirin 325 MG Tablet PO ×2 (07:54→17:08)
[2017-07-05 08:00] VITALS: O2SAT 96
--- NOTE | 2017-07-05 09:18 | CASEMGMT ---
Plan of care meeting held. Resident present as well as resident family. No discharge date set at this time. Resident plans to continue with further care and treatment on the Transitional Care Unit at this time. Resident does plan to discharge home alone with family for support as needed. Physical therapy is recommending outpatient physical therapy at time of discharge. Resident is agreeable to recommendation and would like to have outpatient physical therapy through [facility]. Resident does have a pending insurance approval at this time. Support given. Will continue to follow. Jennifer MEYER, WEIGHT CHECKER
[2017-07-05 09:55] VITALS: PULSE 77; RESP 18; O2SAT 98
[2017-07-05 15:29] VITALS: BP 131/57; PULSE 78; RESP 14; TEMP 36.6; O2SAT 96
[2017-07-05 17:07] VITALS: PULSE 78
[2017-07-06 06:06] VITALS: BP 152/74; PULSE 85
[2017-07-06] MEDS: Losartan Potassium 100 MG Tablet PO (06:06)
[2017-07-06] MEDS: Raloxifene HCl 60 MG Tablet PO (06:06)
[2017-07-06] MEDS: Metoprolol Tartrate 25 MG Tablet PO ×2 (06:06→17:11)
[2017-07-06] MEDS: Polyethylene Glycol 3350 17 GM PACKET PO (06:07)
[2017-07-06] MEDS: Levothyroxine 150 MCG Tablet PO (06:07)
[2017-07-06] MEDS: Famotidine 20 MG Tablet PO (06:07)
[2017-07-06] MEDS: Acetaminophen 500 MG Tablet 1000 MG PO ×3 (06:07→20:45)
[2017-07-06] MEDS: Senna/Docusate Sodium 1 Tablet 2 TABLET PO ×2 (06:07→17:11)
[2017-07-06 07:01] VITALS: O2SAT 94
[2017-07-06] MEDS: Aspirin 325 MG Tablet PO ×2 (07:46→17:11)
--- NOTE | 2017-07-06 11:50 | CASEMGMT ---
Brief interview for mental status (BIMS) and resident mood interview (PHQ-9) completed on this day. BIMS score 15. PHQ-9 score 07/11
--- NOTE | 2017-07-06 11:50 | CASEMGMT ---
Addendum entered by Jennifer Woodson 07/06/17 11:55: Resident reporting to have all needed durable medical equipment already set up within the home and has no further needs. Original Note: Social Work Spoke with resident in room. This social work manager communicating that continued stay has been denied per resident insurance with last cover day being 07/08/17 and discharge or resident financial responsibility to begin on 07/09/17. Resident choosing to discharge on 07/09/17. Resident planning to discharge home alone. Resident planning to have continued therapy through Outpatient physical therapy at [facility]. This social work manager communicating how the process works with [facility] and that an order will be faxed and then [facility] will contact resident to set up appointment. Resident declining for this social work manager to contact resident family about discharge date. Resident planning to inform family about discharge. Resident family plans to provide transportation home for resident. Support given. Will fax order to [facility] when obtained. Proposed discharge date: 07/09/17 PLAN: Discharge home alone with outpatient physical therapy. Jennifer MEYER, BEHAVIOR ANALYST
[2017-07-06 15:48] VITALS: BP 105/60; PULSE 88; RESP 16; TEMP 36.4; O2SAT 96
[2017-07-06 17:11] VITALS: PULSE 88
--- NOTE | 2017-07-06 21:13 | PCM.DC ---
- Discharge Diagnoses Current Active Problems: Current Active and Chronic Problems (Last Updated 06/19/17 @ 12:21 by Kathryn Bear) Osteoarthritis of right knee (Chronic) GERD (gastroesophageal reflux disease) (Chronic) Osteoporosis (Chronic) Factor V Leiden (Chronic) You will use the following diet at home:: No restrictions, Regular Your food should be the consistency of: Regular Your liquids should be the consistency of: Regular/Thin Discharge Activity: Return to Normal Activity, May Shower, Use Walker Weight Bearing Status: Weight bearing as tolerated Call your doctor if you observe: Fever of 101 or Higher, Inability to urinate, Inability to have a bowel movement, Shortness of breath, Chest pain, Uncontrolled pain Allergies/Adverse Reactions: Allergies Penicillins Allergy (Verified 06/07/17 09:50) Unknown Medications to take at Discharge Levothyroxine [Synthroid] 150 mcg PO DAILY 05/15/15 Metoprolol Tartrate [Lopressor (beta guy)] 25 mg PO BID 05/15/15 Raloxifene HCl [Evista] 60 mg PO DAILY 06/07/17 losartan 100 mg tablet 100 mg PO QDAY 06/19/17 Acetaminophen [Tylenol] 1,000 mg PO Q8 07/01/17 Aspirin 325 mg PO BIDCM #36 tab 07/06/17 Famotidine [Pepcid] 20 mg PO DAILY #30 tab 07/06/17 Hydrocortisone 2.5% Crm [Hytone] 1 applic TOPICAL BID PRN PRN #1 tube 07/06/17 Polyethylene Glycol 3350 [Miralax] 17 gm PO DAILY #30 packet 07/06/17 TraMADol [Ultram] 50 mg PO Q6H PRN PRN #30 tablet 07/06/17 The following prescriptions were given: TraMADol [Ultram] 50 mg PO Q6H PRN PRN #30 tablet PRN Reason: Moderate Pain (4-5/10) Famotidine [Pepcid] 20 mg PO DAILY #30 tab Hydrocortisone 2.5% Crm [Hytone] 1 applic TOPICAL BID PRN PRN #1 tube PRN Reason: SKIN IRRITATION/ITCHING Polyethylene Glycol 3350 [Miralax] 17 gm PO DAILY #30 packet Aspirin 325 mg PO BIDCM #36 tab Primary Care Physician: Melvin Weber [Primary Care Provider] - Please follow up with your Primary Care Physician in: 1 week. Please Follow Up With: Martha Reynolds When: [phone] Please Follow Up With: Melvin Weber When: [phone] Proposed Discharge Date: 07/09/17
--- NOTE | 2017-07-06 21:15 | PCM.DC.SUM ---
Discharge Date and Diagnosis Date of Admission: 07/01/17 Date of Discharge: 07/09/17 - Secondary Discharge Diagnosis Chronic Problems (Last Updated 06/19/17 @ 12:21 by Kathryn Bear) Osteoarthritis of right knee (Chronic) GERD (gastroesophageal reflux disease) (Chronic) Osteoporosis (Chronic) Factor V Leiden (Chronic) Hypothyroidism (Chronic) Hypertension (Chronic) Hyperlipidemia (Chronic) Paroxysmal atrial fibrillation (Chronic) Hospital Course and Treatment Imaging Results: 07/01/17 14:29 Diet: Regular Diet Operations: None Procedures: None Summary of Care Provided: The patient is a 81 year old Female with below past medical history hospitalized for right total knee arthroplasty 06/29/[address] Stallings, admitted to TCU for rehabilitation, strengthening, prior to discharge home alone. Discharge home alone with outpatient physical therapy. Discharge Diet: No Restrictions Discharge Activity: Return to Normal Activity, May Shower, Use Walker Weight Bearing Status: Weight bearing as tolerated Call your doctor if you observe: Fever of 101 or Higher, Inability to urinate, Inability to have a bowel movement, Shortness of breath, Chest pain, Uncontrolled pain Home Medications: Medications to take at Discharge Levothyroxine [Synthroid] 150 mcg PO DAILY 05/15/15 Metoprolol Tartrate [Lopressor (beta guy)] 25 mg PO BID 05/15/15 Raloxifene HCl [Evista] 60 mg PO DAILY 06/07/17 losartan 100 mg tablet 100 mg PO QDAY 06/19/17 Acetaminophen [Tylenol] 1,000 mg PO Q8 07/01/17 Aspirin 325 mg PO BIDCM #36 tab 07/06/17 Famotidine [Pepcid] 20 mg PO DAILY #30 tab 07/06/17 Hydrocortisone 2.5% Crm [Hytone] 1 applic TOPICAL BID PRN PRN #1 tube 07/06/17 Polyethylene Glycol 3350 [Miralax] 17 gm PO DAILY #30 packet 07/06/17 TraMADol [Ultram] 50 mg PO Q6H PRN PRN #30 tablet 07/06/17 Following Prescrptions Were Given to Patient: TraMADol [Ultram] 50 mg PO Q6H PRN PRN #30 tablet PRN Reason: Moderate Pain (4-5/10) Famotidine [Pepcid] 20 mg PO DAILY #30 tab Hydrocortisone 2.5% Crm [Hytone] 1 applic TOPICAL BID PRN PRN #1 tube PRN Reason: SKIN IRRITATION/ITCHING Polyethylene Glycol 3350 [Miralax] 17 gm PO DAILY #30 packet Aspirin 325 mg PO BIDCM #36 tab Primary Care Physician: Melvin Weber [Primary Care Provider] - Please follow up with your Primary Care Physician in: 1 week. Please Follow Up With: Martha Reynolds When: [phone] Please Follow Up With: Melvin Weber When: [phone] Disposition: Home Minutes spent on discharge:: 30 Patient Condition:: Good Meaningful Use Info Meaningful Use Diagnoses (Choose all that apply): None applicable
[2017-07-06 22:00] VITALS: BP 158/73; PULSE 82; RESP 16; TEMP 37; O2SAT 94
[2017-07-06 23:03] VITALS: PULSE 82; RESP 16; O2SAT 94
[2017-07-07 06:44] VITALS: BP 171/78; PULSE 82
[2017-07-07] MEDS: Famotidine 20 MG Tablet PO (06:44)
[2017-07-07] MEDS: Senna/Docusate Sodium 1 Tablet 2 TABLET PO (06:44)
[2017-07-07] MEDS: Metoprolol Tartrate 25 MG Tablet PO ×2 (06:44→18:15)
[2017-07-07] MEDS: Levothyroxine 150 MCG Tablet PO (06:44)
[2017-07-07] MEDS: Raloxifene HCl 60 MG Tablet PO (06:45)
[2017-07-07] MEDS: Losartan Potassium 100 MG Tablet PO (06:45)
[2017-07-07] MEDS: Polyethylene Glycol 3350 17 GM PACKET PO (06:45)
[2017-07-07] MEDS: Acetaminophen 500 MG Tablet 1000 MG PO ×2 (06:46→13:47)
[2017-07-07 07:21] VITALS: O2SAT 95
[2017-07-07] MEDS: Aspirin 325 MG Tablet PO ×2 (08:02→17:00)
[2017-07-07 10:00] VITALS: PULSE 85; RESP 18; O2SAT 96
[2017-07-07 15:34] VITALS: BP 139/68; PULSE 62; RESP 17; TEMP 36.5; O2SAT 94
[2017-07-07 18:15] VITALS: PULSE 62
[2017-07-08] MEDS: Raloxifene HCl 60 MG Tablet PO (06:57)
[2017-07-08] MEDS: Famotidine 20 MG Tablet PO (06:58)
[2017-07-08] MEDS: Losartan Potassium 100 MG Tablet PO (06:58)
[2017-07-08] MEDS: Levothyroxine 150 MCG Tablet PO (06:58)
[2017-07-08] MEDS: Senna/Docusate Sodium 1 Tablet 2 TABLET PO ×2 (06:58→17:24)
[2017-07-08 06:59] VITALS: BP 138/83; PULSE 98
[2017-07-08] MEDS: Polyethylene Glycol 3350 17 GM PACKET PO (06:59)
[2017-07-08] MEDS: Metoprolol Tartrate 25 MG Tablet PO ×2 (06:59→17:24)
[2017-07-08] MEDS: Acetaminophen 500 MG Tablet 1000 MG PO ×3 (06:59→20:03)
[2017-07-08] MEDS: Aspirin 325 MG Tablet PO ×2 (08:00→17:24)
[2017-07-08 15:27] VITALS: BP 150/76; PULSE 93; RESP 20; TEMP 36.3; O2SAT 96
[2017-07-08 17:24] VITALS: BP 150/76; PULSE 93
[2017-07-08 22:00] VITALS: PULSE 81; RESP 16; O2SAT 95
[2017-07-09 06:08] LABS: Absolute Lymphocyte Count 2.16 X10^3/ul (0.83-4.51); Absolute Neutrophil Count 4.8 X10^3/uL (2.0-7.7); Basophil# 0.05 X10^3/uL; Basophil% 0.6 % (0-1); Eosinophil# 0.62 X10^3/uL; Eosinophils% 7.3 % (0-5); Hematocrit 31.9 % (37-47); Lymphocyte # 2.16 X10^3/ul (4.0); Lymphocyte % 25.4 % (19-41); Mean Corp Hgb Conc 31.3 g/gl (32-36); Mean Corpuscular Hgb 29.2 pg (27.0-32.0); Mean Corpuscular Volume 93.3 fL (81-99); Mean Platelet Vol. 9.6 fl (6.2-12.0); Monocyte# 0.84 X10^3/uL; Monocyte% 9.9 % (0-10); Neutrophil # 4.84 X10^3/uL (2.7-7.7); Neutrophil % 56.7 % (47-70); Platelet Count 486 K/mm3 (150-450); RBC Distribution Width CV 13.5 % (11.6-14.6); RBC Distribution Width SD 46.1 fl (35.1-43.9); Red Blood Count 3.42 M/mm3 (4.2-5.4); White Blood Count 8.5 K/mm3 (4.4-11.0)
[2017-07-09 06:15] LABS: Anion Gap 7 (5-15); BUN 18 mg/dL (7-18); BUN/Creat Ratio 22.7 RATIO (10-20); Calcium,Total 8.5 mg/dL (8.5-10.1); Chloride 105 mmol/L (98-107); Creatinine, Serum 0.79 mg/dL (0.55-1.02); EST Glomerular Filtration Rate 74 mL/min (>60); Est Glom Filt Rate - Afr Amer 89 mL/min (>60); Glucose 92 mg/dL (74-106); Potassium 4.7 mmol/L (3.5-5.1); Sodium Level 143 mmol/L (136-145)
[2017-07-09 06:29] LABS: POSITIVE COUNT NO; POSITIVE DIFFERENTIAL NO; POSITIVE MORPHOLOGY NO
[2017-07-09 06:37] VITALS: BP 146/78; PULSE 84
[2017-07-09] MEDS: Losartan Potassium 100 MG Tablet PO (06:37)
[2017-07-09] MEDS: Famotidine 20 MG Tablet PO (06:37)
[2017-07-09] MEDS: Acetaminophen 500 MG Tablet 1000 MG PO ×2 (06:37→13:25)
[2017-07-09] MEDS: Polyethylene Glycol 3350 17 GM PACKET PO (06:37)
[2017-07-09] MEDS: Metoprolol Tartrate 25 MG Tablet PO (06:37)
[2017-07-09] MEDS: Senna/Docusate Sodium 1 Tablet 2 TABLET PO (06:37)
[2017-07-09] MEDS: Levothyroxine 150 MCG Tablet PO (06:38)
[2017-07-09] MEDS: Raloxifene HCl 60 MG Tablet PO (06:39)
[2017-07-09] MEDS: Hydrocortisone 2.5% Crm 1 APPLIC TOPICAL (06:44)
[2017-07-09 06:46] VITALS: PULSE 88; RESP 16; O2SAT 97
[2017-07-09] MEDS: Aspirin 325 MG Tablet PO (07:37)
[2017-07-09 14:08] VITALS: BP 140/80; PULSE 88; RESP 18; TEMP 36.7; O2SAT 95
--- NOTE | 2017-07-10 07:48 | MDS.RN ---
Pain interview for ROSIE 07/08/17 was completed on 07/06/17
--- NOTE | 2017-07-10 11:18 | CASEMGMT ---
Insurance Notified insurance of resident discharge on 07/09/17 to home alone with outpatient physical therapy. Auth#[id number] Jennifer MEYER, PUBLIC SERVICE REPRESENTATIVE
--- NOTE | 2017-07-13 12:55 | MDS.RN ---
Information for the mds was obtained from review of the clinical record, interview of resident, staff, and direct observation of resident's care.
== END 2017-07-09 14:10 | disposition home or self-care (01) | DRG 560 ==
PROVIDERS: Admitting Provider Family Medicine Geriatric Medicine; Visit Provider Family Medicine Geriatric Medicine
DX: Z47.1 Aftercare following joint replacement surgery (principal); D68.51 Activated protein C resistance; I48.0 Paroxysmal atrial fibrillation; E03.9 Hypothyroidism, unspecified; I10 Essential (primary) hypertension; Z96.651 Presence of right artificial knee joint; M81.0 Age-related osteoporosis without current pathological fracture; K21.9 Gastro-esophageal reflux disease without esophagitis; E78.5 Hyperlipidemia, unspecified; Z79.899 Other long term (current) drug therapy
CPT/HCPCS: 36415; 80048; 81001; 85025; 87086; 97110; 97116; 97161; 97166; 97530; 97535; 97802

== ENCOUNTER 2017-08-04 08:30 | Outpatient (RCR) | payer MEDICARE, SELFPAY ==
--- NOTE | 2017-07-12 14:10 | HP.PTEVAL_ITS ---
Patient's Visit Information SG CARLISLE is a 82 year old F referred to Physical Therapy by Arnaud MCCLENDON with a diagnosis of R TKA. Date of Evaluation: 07/12/17 Physical Therapist: Jm Barone, PT, - Visit Plan Frequency: 2-3x /Week Duration: 4-6 Weeks Plan: R LE strengthening and stretching, balance and proprio, core stab ex's, nustep, and HEP. CP for pain - Subjective Subjective: DOS: 06/29/17. Pt reports she had chronic R knee pain until having this R TKA. Pt reports she is still pretty sore on her R knee, but she is getting better. Pt reports she was in the hospital for 2 days, then the TCU until this past Monday. Pt reports she has been performing her HEP issued by the hospital, but not quite as good as she should be doing them. No T or N in R LE. No sleep diff secondary to pain. Pt has 4 stairs into house, and notes she has to negotiate them one step at a time. 0/10 pain at rest, 5/10 at worst. No PMHx of R knee surgery. Pt reports she is a [employer] member here and wants to get back to exercising as soon as possible - Pain R knee Pain Intensity (Out of 10): 0 Pain Intensity Range: 5 - Objective Neuro: B LE sensation is WNL to light touch. B achilles 1/3. ROM: R knee 0-15- 91 degrees; 0-105 degrees. MMT: L knee 5/5 throughout, R knee 3/5. Girth at joint line: L knee 43 cm, R knee 46.5 cm - Goals Goal 1:: Decrease R knee pain x 50% to aid with IADL's Goal Time Frame: 4-6 Weeks Goal 2:: Increase R knee ROM x 20 degrees to aid with restoring a more normal gait pattern Goal Time Frame: 4-6 Weeks Goal 3:: Increase R knee strength x 1 grade to aid with stair negotiation Goal Time Frame: 4-6 Weeks Goal 4:: I with HEP Goal Time Frame: 4-6 Weeks - Rehabilitation Potential Physical Therapy Diagnosis: R knee pain, weakness, and limited ROM secondary to R knee pain Rehabilitation Potential: Good - Anticipated Interventions Patient/Client Instruction: Educate patient on: Condition, Plan of Care For the Purpose of:: To improve self management Therapeutic Exercise to Include: Strength training, Endurance training, Balance training, Flexibilty training, Gait and locomotor training, Passive ROM, Active ROM, Dynamic Lumbar Stabilization For the Purpose of:: To decrease pain, To increase ROM, To improve muscle performance and motor function Thank you for the opportunity to evaluate your patient. For Medicare and Medicare HMO plans, please review the plan of care and approve it. It will need to be FAXED BACK to us at [phone] for Medicare purposes. Please let me know if there are questions or concerns regarding this plan of care. Physician Signature: Date:
--- NOTE | 2017-08-04 08:45 | HP.PTDCSUM ---
HP - PT D/C Summary It has been my pleasure to treat SG CARLISLE under orders from DR.[email or web address] Hopkins Chi for the diagnosis of R TKA for a total of 10 visit(s). Discharge Date: Please see the following information for a summary of their discharge status. - Subjective Subjective: Pt reports she is stiff and sore, but no pain - Pain R knee Pain Intensity (Out of 10): 2 - Overall Improvement % Improvement: 15 - Objective Objective/Function: Pain 2/10. ROM: 0-105 degrees. MMT: 5/5 throughout. Pt is I with HEP. Rx goals achieved - Goals Goal 1:: Decrease R knee pain x 50% to aid with IADL's Goal Progress: Goal Met Goal 2:: Increase R knee ROM x 20 degrees to aid with restoring a more normal gait pattern Goal Progress: Goal Met Goal 3:: Increase R knee strength x 1 grade to aid with stair negotiation Goal Progress: Goal Met Goal 4:: I with HEP Goal Progress: Goal Met - Plan Plan: Discharge - D/C Information If there are questions or concerns regarding this patient's physical therapy, please feel free to call me at [phone]. Thank you for the referral of this patient. Sincerely, Jm Barone, PT,
== END 2017-08-04 09:32 | disposition home or self-care (01) ==
LOC: PT 08:30
PROVIDERS: Visit Provider Family Medicine Geriatric Medicine
DX: M17.11 Unilateral primary osteoarthritis, right knee (principal); Z96.651 Presence of right artificial knee joint
CPT/HCPCS: 97110; 97161; 97164

== ENCOUNTER 2017-11-17 14:01 | Emergency (ER) | payer MEDICARE, SELFPAY ==
[2017-11-17 14:02] VITALS: BP 149/74; PULSE 104; RESP 22; TEMP 36.9; O2SAT 118; BMI 30.9
--- NOTE | 2017-11-17 14:20 | EKG12_ITS ---
Test Reason : NEW ONSET AFIB Blood Pressure : / mmHG Vent. Rate : 106 BPM Atrial Rate : 127 BPM P-R Int : 000 ms QRS Dur : 076 ms QT Int : 322 ms P-R-T Axes : 000 018 055 degrees QTc Int : 427 ms Atrial fibrillation with premature ventricular or aberrantly conducted complexes Abnormal ECG Confirmed by SELINA LEYVA, NANDA ([id number]), food editor ISAAC BAEZ ([id number]) on 11/20/2017 2:19:58 PM Referred By: Confirmed By:NANDA MARKS MD
[2017-11-17] MEDS: 0.9% Normal Saline 1,000 ML 150 ML IV (14:29)
--- NOTE | 2017-11-17 14:30 | RAD_ITS ---
STUDY: X-RAY CHEST REASON FOR EXAM: Female, 82 years old. Chest pain. TECHNIQUE: Single AP portable view of the chest. COMPARISON: None. FINDINGS: EKG electrodes are seen. Small right pleural effusion with underlying atelectasis and/or infiltration. Follow-up is recommended. There is no demonstrated pleural abnormality. Normal size heart. Normal mediastinum and danii. Normal visualized pulmonary arteries. There is atherosclerotic tortuosity of the aortic arch and descending thoracic aorta. There are diffuse degenerative changes of the visualized thoracic spine. There is degenerative osteoarthritis of the bilateral shoulders. There is no demonstrated abnormality of the visualized soft tissue structures of the upper abdomen. RAD/Chest 1 View (Portable) IMPRESSION: Small right pleural effusion with underlying infiltration and/or atelectasis. Electronically Signed: Arnaldo Rosenthal MD at 14:52 EDT Tel [phone], Service support ,
[2017-11-17 14:41] LABS: Absolute Neutrophil Count 7.1 X10^3/uL (2.0-7.7); Basophil# 0.03 X10^3/uL; Basophil% 0.3 % (0-1); Eosinophil# 0.09 X10^3/uL; Eosinophils% 0.9 % (0-5); Hemoglobin 10.1 g/dl (12.0-15.0); Lymphocyte % 17.9 % (19-41); Mean Corp Hgb Conc 32.6 g/gl (32-36); Mean Corpuscular Hgb 29.5 pg (27.0-32.0); Mean Corpuscular Volume 90.6 fL (81-99); Mean Platelet Vol. 10.4 fl (6.2-12.0); Monocyte# 1.01 X10^3/uL; Monocyte% 10.1 % (0-10); Neutrophil # 7.09 X10^3/uL (2.7-7.7); Neutrophil % 70.6 % (47-70); Platelet Count 288 K/mm3 (150-450); RBC Distribution Width CV 13.8 % (11.6-14.6); RBC Distribution Width SD 44.3 fl (35.1-43.9); Red Blood Count 3.42 M/mm3 (4.2-5.4)
[2017-11-17 14:49] LABS: POSITIVE COUNT NO; POSITIVE DIFFERENTIAL NO; POSITIVE MORPHOLOGY NO
[2017-11-17 15:03] LABS: AST(SGOT) 16 U/L (15-37); Alanine Aminotransfer ALT/SGPT 13 U/L (13-56); Albumin, Serum 2.4 g/dL (3.2-5.0); Alkaline Phosphatase 73 U/L (45-117); Anion Gap 10 (5-15); BUN 26 mg/dL (7-18); BUN/Creat Ratio 17.8 RATIO (10-20); Bilirubin, Direct 0.17 mg/dL (0.00-0.30); Chloride 106 mmol/L (98-107); Creatinine, Serum 1.46 mg/dL (0.55-1.02); EST Glomerular Filtration Rate 36 mL/min (>60); Est Glom Filt Rate - Afr Amer 44 mL/min (>60); Estimated Creatinine Clearance 25.65 ml/min; Glucose 118 mg/dL (74-106); Lipase 137 U/L (73-393); Potassium 3.7 mmol/L (3.5-5.1); Protein, Total 6.4 g/dL (6.4-8.2); Sodium Level 140 mmol/L (136-145)
--- NOTE | 2017-11-17 15:26 | ED.VISSUMM ---
- ER Visit Summary Date of Service: 11/17/17 Chief Complaint: Shortness of breath and chest pain History of Present Illness: The patient is a 82 F who presents with recent mild shortness of breath. She states that she has been burping more than normal and gets chest pain only when she burps. She has a history of atrial fibrillation and hypertension. She reportedly went to the [facility] and then was sent to the emergency room. She denies fever or chills. She does not feel short of breath sitting at rest. Physical Examination: Vital signs significant for heart rate of 104, otherwise unremarkable. Patient is sitting upright in bed no acute distress. She is alert and talkative. Heart is slightly tachycardic and irregular. Lung sounds are clear. Abdomen is soft nontender. Lower extremity examination was no significant calf tenderness or edema. Test Results: EKG is A. fib at 106 with no acute ischemia. Portable chest x-ray shows a very small right pleural effusion with underlying infiltrate or atelectasis. CBC was normal white count and normal differential. Hemoglobin is 10.1. Chemistry studies reveal BUN 26 and creatinine 1.46. LFTs and lipase are normal. TSH is normal. Troponin normal. Emergency Department Course and Treatment: Patient was given gentle IV fluids here. On repeat evaluation heart rate is in the 80s. She feels improved and wants to go home. She will be started on Prevacid. Treatment Plan: [] Disposition: Discharge Impression: Reflux This note was generated with WEbook dictation software. It may contain incorrect words, spelling, and punctuation that were not noted in review of the chart prior to signing ED Disposition - Plan for ED Patient: Chief Complaint: General Illness Referrals: Melvin Weber [Primary Care Provider] -
--- NOTE | 2017-11-17 15:28 | ED.DEP ---
ED Disposition - Plan for ED Patient: Disposition: Home or Assisted Living Chief Complaint: General Illness Instructions: ED GERD Prescriptions: Omeprazole [Prilosec] 20 mg PO DAILY #20 capsule Referrals: Melvin Weber [Primary Care Provider] - 1-2 Weeks
[2017-11-17 15:48] VITALS: BP 131/81; PULSE 90
== END 2017-11-17 15:49 | disposition home or self-care (01) ==
PROVIDERS: Emergency Provider Emergency Medicine
DX: K21.9 Gastro-esophageal reflux disease without esophagitis (principal); I10 Essential (primary) hypertension; I48.91 Unspecified atrial fibrillation; Z79.82 Long term (current) use of aspirin; Z79.899 Other long term (current) drug therapy
CPT/HCPCS: 71045; 80048; 80076; 83690; 84443; 84484; 85025; 93005; 96360; 99284; J7030; A4216

== ENCOUNTER 2017-12-15 11:03 | Emergency (ER) | payer MEDICARE, SELFPAY ==
[2017-12-15 11:05] VITALS: BP 153/89; PULSE 74; RESP 22; TEMP 36.7; O2SAT 96; BMI 30.5
[2017-12-15 11:17] VITALS: O2SAT 96
--- NOTE | 2017-12-15 11:36 | ED.DCSUM_ITS ---
- ER Visit Summary Date of Service: 12/15/17 Chief Complaint: [] Dysuria urinary frequency for a few days History of Present Illness: The patient is a 82 F [] history of PE DVT UTIs per family she has had dysuria for the last few days and some incontinence. She was taken to local urgent care clinic her pulse ox was 93% they would not see her and she was sent to the emergency department She indicates she is having no chest pain no fever no cough she is chronically short of breath her pulse ox is 96% on room air she has absolutely no cardiopulmonary symptoms of any kind she is frustrated that the urgent care center sent her to the emergency department the daughter confirms that her only complaint is UTI type related no cardiopulmonary symptoms her INRs have been running 2.6 she has been follow-up with her doctors again the patient denies fever cough chest pain or any change in her chronic shortness of breath The patient is awake oriented ?4 she indicates there is nothing wrong with her she just wants to be evaluated for the UTI she does not wish to have any type of detailed emergency department evaluation other than having her urine checked and have her INR checked only because she is due to have the INR checked on Monday and that will save her trip to the hospital Physical Examination: [] She is awake and alert her vital signs are normal all within normal range pulse ox 96% head neck chest unremarkable the abdomen soft nontender upper lower extremities unremarkable 2+ edema she has some compression stockings in place she is awake alert oriented ?4 with no complaints Test Results: [] Emergency Department Course and Treatment: [] In all the above and based on her wishes we did check INR and UA INR 3.0, UA shows signs of UTI, urine culture sent, the patient is allergic to penicillins Time given all the above she will be started on Bactrim and explained to her and the daughter the concept of Bactrim affecting in increasing the INR the need to have INR checked more frequently follow-up the PCP return for change in symptoms mother voiced understanding, they will do so Treatment Plan: [] Disposition: [] Home stable Impression: [] UTI This note was generated with [employer]ation software. It may contain incorrect words, spelling, and punctuation that were not noted in review of the chart prior to signing ED Disposition - Plan for ED Patient: Chief Complaint: Complaint Referrals: Melvin Weber [Primary Care Provider] -
[2017-12-15 11:53] LABS: Prothrombin Time (Protime)PT. 31.3 SECONDS (11.7-14.9)
[2017-12-15 11:57] LABS: Bacteria 0 SEEN /hpf (None Seen); Mucous, Urine 0 SEEN /hpf (<or=2+); Red Blood Cells-Urine 0 SEEN /hpf (0-5)
[2017-12-15 12:20] LABS: Color, Urine Yellow (Yellow); Glucose, Dipstick Normal (Normal); Ketone-Dipstick Negative (Negative); Leukocyte Esterase-Dipstick 100 /ul (Negative); Nitrite-Dipstick Negative (Negative); Occult Blood-Urine 10 /ul (Negative); Protein-Dipstick Negative (Negative); Urine Bilirubin Dipstick Negative (Negative); Urine Clarity Clear (Clear); Urine Urobilinogen Normal (Normal)
[2017-12-15 12:28] LABS: Squamous Epithelial Cells - UA 0-5 SEEN /hpf (5-10); White Blood Cells 5-10 SEEN /hpf (0-5)
--- NOTE | 2017-12-15 12:36 | ED.DEP ---
ED Disposition - Plan for ED Patient: Chief Complaint: Complaint Instructions: ED UTI Cystitis Female Prescriptions: Smz/Tmp Ds [Bactrim Ds] 1 tab PO BID #14 tab Referrals: Melvin Weber [Primary Care Provider] -
[2017-12-15 12:53] VITALS: BP 144/70; PULSE 80; RESP 14; O2SAT 98
[2017-12-15] MEDS: Smz/Tmp Ds Tablet 1 TABLET PO (12:57)
--- NOTE | 2017-12-18 13:58 | ED.RN ---
macrobid 100mg 1 tab bid x7 days, quantity 14 by edgar mata called to [facility] in [place]
== END 2017-12-15 12:58 | disposition home or self-care (01) ==
PROVIDERS: Emergency Provider Emergency Medicine
DX: N39.0 Urinary tract infection, site not specified (principal); Z86.711 Personal history of pulmonary embolism; Z87.440 Personal history of urinary (tract) infections; Z86.718 Personal history of other venous thrombosis and embolism
CPT/HCPCS: 81001; 85610; 87086; 87088; 87186; 99283

== ENCOUNTER 2018-01-01 08:49 | Outpatient (RCR) | payer MEDICARE, SELFPAY ==
[2017-12-19 11:01] LABS: International Normalized Ratio 3.5; Prothrombin Time (Protime)PT. 35.2 SECONDS (11.7-14.9)
[2018-01-01 10:37] LABS: International Normalized Ratio 1.8; Prothrombin Time (Protime)PT. 21.3 SECONDS (11.7-14.9)
== END 2018-01-01 10:00 | disposition home or self-care (01) ==
LOC: MTLAB 08:49
PROVIDERS: Visit Provider Family Medicine
DX: Z79.01 Long term (current) use of anticoagulants (principal)
CPT/HCPCS: 36415; 85610

== ENCOUNTER → 2018-01-08 08:33 | Outpatient (CLI) | payer MEDICARE, SELFPAY ==
[2018-01-08 10:34] LABS: Erythrocyte Sedimentation Rate 19 mm/hr (0-30)
== END ==
PROVIDERS: Visit Provider Internal Medicine Pulmonary Disease
DX: R91.1 Solitary pulmonary nodule (principal)
CPT/HCPCS: 36415; 71046; 85652; 86480; 87385

== ENCOUNTER 2018-01-26 08:13 | Outpatient (RCR) | payer MEDICARE, SELFPAY ==
[2018-01-26 15:38] LABS: International Normalized Ratio 1.5; Prothrombin Time (Protime)PT. 18.5 SECONDS (11.7-14.9)
== END 2018-01-26 10:00 | disposition home or self-care (01) ==
LOC: MTLAB 08:13
PROVIDERS: Visit Provider Family Medicine
DX: Z79.01 Long term (current) use of anticoagulants (principal)
CPT/HCPCS: 36415; 85610

== ENCOUNTER 2018-02-19 07:37 | Outpatient (RCR) | payer MEDICARE, SELFPAY ==
[2018-02-19 10:34] LABS: International Normalized Ratio 1.9; Prothrombin Time (Protime)PT. 22.1 SECONDS (11.7-14.9)
== END 2018-02-19 09:00 | disposition home or self-care (01) ==
LOC: MTLAB 07:37
PROVIDERS: Referring Provider Family Medicine; Visit Provider Family Medicine
DX: Z79.01 Long term (current) use of anticoagulants (principal)
CPT/HCPCS: 36415; 85610

== ENCOUNTER 2018-03-27 07:36 | Outpatient (RCR) | payer MEDICARE, SELFPAY ==
[2018-03-27 10:10] LABS: International Normalized Ratio 2.1; Prothrombin Time (Protime)PT. 23.6 SECONDS (11.7-14.9)
== END 2018-03-27 08:00 | disposition home or self-care (01) ==
LOC: MTLAB 07:36
PROVIDERS: Referring Provider Family Medicine; Visit Provider Family Medicine
DX: Z79.01 Long term (current) use of anticoagulants (principal)
CPT/HCPCS: 36415; 85610

== ENCOUNTER 2018-04-16 08:45 | Outpatient (RCR) | payer MEDICARE, SELFPAY ==
[2018-04-16 10:17] LABS: International Normalized Ratio 1.6; Prothrombin Time (Protime)PT. 19.2 SECONDS (11.7-14.9)
--- OUTSIDE RECORDS SUMMARY | 2018-06-09 10:54 | XMS RPT_ITS ---
:1935 Author Organization [facility] Support Name Relationship Address Phone WHITLEY VELASCO Unavailable [address] + [place] [address] SERAFIN GARCIA Unavailable [address] + [place] [address] R Unavailable Unavailable Unavailable GESSEL, WHITLEY Unavailable [address] + [place] [address] SERAFIN GARCIA Unavailable [address] + [place] [address] R Unavailable Unavailable Unavailable GESSEL, WHITLEY Unavailable [address] + [place] [address] SERAFIN GARCIA Unavailable [address] + [place] [address] R Unavailable Unavailable Unavailable HAIMSEL, WHITLEY Unavailable [address] + [place] [address] SERAFIN GARCIA Unavailable [address] + [place] [address] R Unavailable Unavailable Unavailable GESSEL, WHITLEY Unavailable [address] + [place] [address] SERAFIN GARCIA Unavailable [address] + [place] [address] R Unavailable Unavailable Unavailable GESSEL, WHITLEY Unavailable [address] + [place] [address] SERAFIN GARCIA Unavailable [address] + [place] [address] R Unavailable Unavailable Unavailable Odenkirk, Serafin Unavailable [address] + [place] [address] R Unavailable Unavailable Unavailable Odenkirk, Serafin Unavailable [address] + [place] [address] R Unavailable Unavailable Unavailable Odenkirk, Serafin Unavailable [address] + [place] [address] R Unavailable Unavailable Unavailable ODENKIRK, SERAFIN Unavailable [address] + [place] [address] R Unavailable Unavailable Unavailable ODENKIRK, SERAFIN Unavailable [address] + [place] [address] R Unavailable Unavailable Unavailable ODENKIRK, SERAFIN Unavailable [address] + [place] [address] R Unavailable Unavailable Unavailable ODENKIRK, SERAFIN Unavailable [address] + [place] [address] R Unavailable Unavailable Unavailable ODENKIRK, SERAFIN Unavailable [address] + [place] [address] R Unavailable Unavailable Unavailable ODENKIRK, SERAFIN Unavailable [address] + [place] [address] R Unavailable Unavailable Unavailable ODENKIRK, SERFAIN Unavailable [address] + [place] [address] R Unavailable Unavailable Unavailable Care Team Providers Name Role Phone Jhon Stallings Admitting Unavailable Jhon Stallings Attending Unavailable Jhon Stallings Referring Unavailable Gus, Melvin Primary Care Unavailable Kathryn Bear Attending Unavailable Arpit Dover Attending Unavailable Jhon Stallings Referring Unavailable Dylan, Arnaud Chi Admitting Unavailable Dylan, Arnaud Chi Attending Unavailable Gus, Melvin Primary Care Unavailable Dylan, Arnaud Chi Attending Unavailable Dylan, Arnaud Chi Referring Unavailable Gus, Melvin Primary Care Unavailable Hosea Bautista Attending Unavailable Gus, Melvin Referring Unavailable Gus, Melvin Primary Care Unavailable Gus, Melvin Primary Care Unavailable Viri Saravia Attending Unavailable David Baez Attending Unavailable Gus, Melvin Referring Unavailable Gus, Melvin Primary Care Unavailable Violetta Vazquez Attending Unavailable Gus, Melvin Attending Unavailable Gus, Melvin Referring Unavailable Gus, Melvin Primary Care Unavailable Sibilia, Isaias Attending Unavailable Sibilia, Isaias Referring Unavailable Gus, Melvin Primary Care Unavailable Gus, Melvin Attending Unavailable Gus, Melvin Referring Unavailable Gus, Melvin Primary Care Unavailable Gus, Melvin Attending Unavailable Gus, Melvin Referring Unavailable Gus, Melvin Primary Care Unavailable Gus, Melvin Attending Unavailable Gus, Melvin Referring Unavailable Gus, Melvin Primary Care Unavailable Gus, Melvin Primary Care Unavailable Gus, Melvin Attending Unavailable Gus, Melvin Referring Unavailable WINIFRED RUSH BIOMEDICAL ENGINEER-C Consulting Unavailable ROSA DENISE Admitting Unavailable ROSA DENISE Attending Unavailable PROBLEMS PROBLEMS DATE TYPE CONDITION / CODE ATTENDING STATUS SOURCE 04/17/2018 Unknown Z79.01 - [facility] Gus, Melvin Active [place] (current) use of [facility] anticoagulants / Hospital Z79.01(ICD-10) Repository 11/20/2017 Admitting Unknown / ROSA DENISE Active [facility] diagnosis UNK(Unknown) D Hospital Repository 07/09/2017 Unknown Z47.1 - Aftercare Dylan, Arnaud Chi Active [facility] following joint Community replacement surgery Hospital / Z47.1(ICD-10) Repository 07/09/2017 Unknown 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, Arnaud Chi Active [facility]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 [facility] osteoarthritis, Hospital right knee / Repository M17.11(ICD-10) 07/05/2017 Unknown M25.561 - Pain in Jhon Stallings Active [facility] right knee / Community M25.561(ICD-10) Hospital Repository PROCEDURES PROCEDURES No Procedure Records FoundRESULTS RESULTS PROTHROMBIN TIME W/INR Collected: 04/16/2018 Status: F Source: [place] 8:54 AM [facility] REPOSITORY TYPE CODE TESTS RESULT OUT OF RANGE REFERENCE UNITS LAB L300.4150 11.7-14.9 SECONDS High PROTIME 19.2 LAB L300.4200 Normal INR 1.6 Performed By: #### L300.3900 #### [facility] [place], [address] PROTHROMBIN TIME W/INR Collected: 03/27/2018 Status: F Source: [place] 7:40 AM [facility] REPOSITORY TYPE CODE TESTS RESULT OUT OF RANGE REFERENCE UNITS LAB L300.4150 11.7-14.9 SECONDS High PROTIME 23.6 LAB L300.4200 Normal INR 2.1 Performed By: #### L300.3900 #### [facility] [address] [place], [address] PROTHROMBIN TIME W/INR Collected: 02/19/2018 Status: F Source: [place] 7:43 AM [facility] REPOSITORY TYPE CODE TESTS RESULT OUT OF RANGE REFERENCE UNITS LAB L300.4150 11.7-14.9 SECONDS High PROTIME 22.1 LAB L300.4200 Normal INR 1.9 Performed By: #### L300.3900 #### [facility] [address] [place], [address] PROTHROMBIN TIME W/INR Collected: 01/26/2018 Status: F Source: [place] 1:22 PM [facility] REPOSITORY TYPE CODE TESTS RESULT OUT OF RANGE REFERENCE UNITS LAB L300.4150 11.7-14.9 SECONDS High PROTIME 18.5 LAB L300.4200 Normal INR 1.5 Performed By: #### L300.3900 #### [facility] [address] [place], [address] CHEST PA AND LATERAL Observed: 01/08/2018 Status: F Source: [place] 9:12 AM [facility] REPOSITORY [facility] Imaging Services [address] [place] [address] Chest PA and Lateral MR#: [id number] Acct: [id number] Name: SG VELASCO Rep #: [id number] : 1935 F 82 From: Lucius Yu DO PCP: Melvin Weber Status: REG CLI Study: Chest PA and Lateral Date of Exam: 01/08/18 Exam# [id number] Ordering Dr: Isaias Bahena MD STUDY: X-RAY CHEST REASON FOR EXAM: Female, 82 years old. Shortness breath. History of lung nodule. TECHNIQUE: PA and lateral views of the chest. COMPARISON: November 17, 2017. FINDINGS: Lungs are well-expanded. There are 2 small nodular densities seen in the right lower lobe. There is blunting of the right costophrenic angle consistent with small pleural effusion or pleural thickening. There is no new mass or infiltrate seen. Normal size heart. Normal mediastinum and danii. Normal visualized pulmonary arteries. Normal visualized aortic arch and descending thoracic aorta. There are diffuse degenerative changes of the visualized thoracic spine. There is degenerative osteoarthritis of the bilateral shoulders. There is no demonstrated abnormality of the visualized soft tissue structures of the upper abdomen. RAD/Chest PA and Lateral IMPRESSION: 1. Probable small granulomata at the right lung base. 2. Small right pleural effusion. Electronically Signed: Lucius Yu DO at 16:55 EDT Tel [phone], Service support , CC: Melvin Weber; Isaias Bahena MD Cooking Show Host: Signed ERYTHROCYTE SED RATE Collected: 01/08/2018 Status: F Source: [place] 8:32 AM [facility] REPOSITORY TYPE CODE TESTS RESULT OUT OF RANGE REFERENCE UNITS LAB L102.0000 0-30 mm/hr Normal SED RATE 19 Performed By: #### L101.9900 #### [facility] [address] [place], [address] URINE HISTOPLASMA Collected: 01/08/2018 Status: F Source: [place] ANTIGEN 8:32 AM [facility] REPOSITORY TYPE CODE TESTS RESULT OUT OF RANGE REFERENCE UNITS LAB L3100.0902 Normal UR HISTO AG Result Comment: TEST RESULT UNITS REF INTERVAL QuantiFERON Client Incubated QuantiFERON TB Gold Negative Negative The specimen received for QuantiFERON testing was incubated by the ordering institution. Specific procedures outlined in our Directory of Services and in the package insert for the QuantiFERON Gold (In Tube) test must be followed to enable for proper stimulation of cells for the production of interferon gamma. QuantiFERON Criteria To be considered positive a specimen should have a TB Ag minus Nil value greater than or equal to 0.35 IU/mL and in addition the TB Ag minus Nil value must be greater than or equal to 25% of the Nil value. There may be insufficient information in these values to differentiate between some negative and some indeterminate test values. QuantiFERON TB Ag Value 0.03 IU/mL QuantiFERON Nil Value 0.03 IU/mL QuantiFERON Mitogen Value >10.00 IU/mL QFT TB Ag minus Nil Value 0.00 IU/mL Interpretation: The QuantiFERON TB Gold (in Tube) assay is intended for use as an aid in the diagnosis of TB infection. Negative results suggest that there is no TB infection. In patients with high suspicion of exposure, a negative test should be repeated. A positive test indicates infection with Mycobacterium tuberculosis. Among individuals without tuberculosis infection, a positive test may be due to exposure to M. kansasii, M. szulgai or M. marinum. On the Internet, go to cdc.gov/tb for further details. Histoplasma Gal'adriano Ag Ur Histoplasma Gal'adriano Ag Ur <0.5 <0.5 ng/mL Disclaimer: This test was developed and its performance characteristics determined by [employer]. It has not been cleared or approved by the Food and Drug Administration. TESTING PERFORMED AT [facility]. ORIGINAL REPORT ON FILE IN LAB CONTAINS ADDITIONAL TEST SITE INFORMATION. Performed By: #### L3100.0902 #### [facility] (refer to report for specific site) refer to report for address and phone number PROTHROMBIN TIME W/INR Collected: 01/01/2018 Status: F Source: [place] 8:53 AM [facility] REPOSITORY TYPE CODE TESTS RESULT OUT OF RANGE REFERENCE UNITS LAB L300.4150 11.7-14.9 SECONDS High PROTIME 21.3 LAB L300.4200 Normal INR 1.8 Performed By: #### L300.3900 #### [facility] [address] [facility] [place], [address] PROTHROMBIN TIME W/INR Collected: 12/19/2017 Status: F Source: [place] 8:12 AM [facility] REPOSITORY TYPE CODE TESTS RESULT OUT OF REFERENCE UNITS RANGE LAB L300.4150 11.7-14.9 SECONDS High PROTIME 35.2 LAB L300.4200 High alert INR 3.5 Performed By: #### L300.3900 #### [facility] [address] [facility] [place], [address] EMERGENCY DEPARTMENT Observed: 12/15/2017 Status: F Source: [place] SUMMARY 3:34 PM [facility] REPOSITORY [facility] Medical Records Department [address] [place] [address] Emergency Department Summary 12/15/17 1134 MR#: [id number] Acct: [id number] Name: Sg Velasco Rep #: [id number] : 1935 82 From: Violetta Vazquez MD PCP: Melvin Weber Status: DEP ER - ER Visit Summary Date of Service: 12/15/17 Chief Complaint: [] Dysuria urinary frequency for a few days History of Present Illness: The patient is a 82 F [] history of PE DVT UTIs per family she has had dysuria for the last few days and some incontinence. She was taken to local urgent care clinic her pulse ox was 93% they would not see her and she was sent to the emergency department She indicates she is having no chest pain no fever no cough she is chronically short of breath her pulse ox is 96% on room air she has absolutely no cardiopulmonary symptoms of any kind she is frustrated that the urgent care center sent her to the emergency department the daughter confirms that her only complaint is UTI type related no cardiopulmonary symptoms her INRs have been running 2.6 she has been follow-up with her doctors again the patient denies fever cough chest pain or any change in her chronic shortness of breath The patient is awake oriented 4 she indicates there is nothing wrong with her she just wants to be evaluated for the UTI she does not wish to have any type of detailed emergency department evaluation other than having her urine checked and have her INR checked only because she is due to have the INR checked on Monday and that will save her trip to the hospital Physical Examination: [] She is awake and alert her vital signs are normal all within normal range pulse ox 96% head neck chest unremarkable the abdomen soft nontender upper lower extremities unremarkable 2+ edema she has some compression stockings in place she is awake alert oriented 4 with no complaints Test Results: [] Emergency Department Course and Treatment: [] In all the above and based on her wishes we did check INR and UA INR 3.0, UA shows signs of UTI, urine culture sent, the patient is allergic to penicillins Time given all the above she will be started on Bactrim and explained to her and the daughter the concept of Bactrim affecting in increasing the INR the need to have INR checked more frequently follow-up the PCP return for change in symptoms mother voiced understanding, they will do so Treatment Plan: [] Disposition: [] Home stable Impression: [] UTI This note was generated with [employer] dictation software. It may contain incorrect words, spelling, and punctuation that were not noted in review of the chart prior to signing ED Disposition - Plan for ED Patient: Chief Complaint: Complaint Referrals: Melvin Weber [Primary Care Provider] - What to do if you have Problems For any increased pain, shortness of breath, bleeding, nausea or vomiting, chest pain, or any unexpected problems, contact your Primary Care Provider. Call [facility] ([phone]) or report to the closest Emergency Room. Call 911 if necessary. 12/15/17 1534 <Electronically signed by Violetta Vazquez MD> Date Violetta Vazquez MD Cosigner Signature (If Indicated): Date CC: Melvin Weber DISCHARGE INSTRUCTION Observed: 12/15/2017 Status: F Source: [place] 12:37 PM [facility] REPOSITORY [facility] Records Department [address] [place] [address] Discharge Instruction 12/15/17 1236 MR#: [id number] Acct: [id number] Name: Sg Velasco Rep #: [id number] : 1935 82 From: Violetta Vazquez MD PCP: Melvin Weber Status: REG ER ED Disposition - Plan for ED Patient: Chief Complaint: Complaint Instructions: ED UTI Cystitis Female Prescriptions: Smz/Tmp Ds [Bactrim Ds] 1 tab PO BID #14 tab Referrals: Melvin Weber [Primary Care Provider] - What to do if you have Problems For any increased pain, shortness of breath, bleeding, nausea or vomiting, chest pain, or any unexpected problems, contact your Primary Care Provider. Call [facility] ([phone]) or report to the closest Emergency Room. Call 911 if necessary. 12/15/17 1237 <Electronically signed by Violetta Vazquez MD> Date Violetta Vazquez MD Cosigner Signature (If Indicated): Date CC: Melvin Weber URINALYSIS, COMPLETE Collected: 12/15/2017 Status: F Source: [place] 11:50 AM [facility] REPOSITORY Order Comment: How was Urine Obtained? ROLL FORGER TO SPECIFY TYPE CODE TESTS RESULT OUT OF RANGE REFERENCE UNITS LAB L400.3000 Yellow COLOR Normal Yellow LAB L400.3050 Clear Normal CLARITY Clear LAB L400.3200 Normal mg/dl Normal GLUCOSE, UR Normal LAB L400.3300 Negative mg/dL Normal BILIRUBIN URINE Negative LAB L400.3400 Negative mg/dl Normal KETONE UR Negative LAB L400.3465 1.002-1.030 Normal SP.GR. DIPSTX 1.010 LAB L400.3550 5.0 - 8.0 pH UR Normal 7.0 LAB L400.3600 Negative mg/dl PROT Normal DIPSTX Negative LAB L400.3700 Normal mg/dl Normal UROBILI Normal LAB L400.3750 Negative Normal NITRITE UR Negative LAB L400.3780 Negative /ul High 10 OCCULT BLOOD-UR LAB L400.3800 Negative /ul High LEUK ESTERASE 100 LAB L400.4050 0-5 /hpf WBC Normal 5-10 SEEN LAB L400.4100 0-5 /hpf 0 Normal RBC-UA SEEN LAB L400.4150 5-10 /hpf SQUAM Normal EPI 0-5 SEEN LAB L400.4300 None Seen /hpf 0 Normal BACTERIA SEEN LAB L400.4350 <or=2+ /hpf 0 Normal MUCUS, URINE SEEN Performed By: #### L400.0001 #### [facility] [address] [place], [address] Observed: 12/15/2017 Status: F Source: [place] CULTURE, URINE 11:50 AM [facility] REPOSITORY Urine Culture RESULTS CALLED TO MALA/ED 12/18/17 0821 Kristen Marie. REPORT READ BACK BY SAME . Copy of report sent to Infection Control Printer [id number] 12/17/17 0801 MIKEL. ORGANISM 1: Presumptive E. coli [place] Count >100,000 MARKER ESBL producing Organism Presumptive E. coli: REACTION Amikacin $ <=2 S Aztreonam $$$ >=64 R Meropenem $ <=0.25 S (NF) indicates non-formulary drug at [facility]. Approval by Infectious Disease Specialist required before non-formulary drugs may be ordered and/or dispensed. Presumptive E. coli: REACTION Amoxacillin/Clavulanic Acid $ 8 S Ampicillin $ >=32 R Ampicillin/Sulbactam $ 16 I Cefazolin $ >=64 R Cefepime $ >=64 R Ceftriaxone $ >=64 R Ciprofloxacin $ >=4 R ESBL + Ertapenim $$$ <=0.5 S Gentamicin $ >=16 R Imipenem *NF <=0.25 S Levofloxacin $ >=8 R Nitrofurantoin $ 32 S Piperacillin/Tazobactam $$ <=4 S Tobramycin $ 8 I Trimethoprim/Sulfametho $ >=320 R (NF) indicates non-formulary drug at [facility]. Approval by Infectious Disease Specialist required before non-formulary drugs may be ordered and/or dispensed. Performed By: #### M100.0650 #### [facility] [address] [place], [address] PROTHROMBIN TIME W/INR Collected: 12/15/2017 Status: F Source: [place] 11:20 AM [facility] REPOSITORY TYPE CODE TESTS RESULT OUT OF RANGE REFERENCE UNITS LAB L300.4150 11.7-14.9 SECONDS High PROTIME 31.3 LAB L300.4200 Normal INR 3.0 Performed By: #### L300.3900 #### [facility] [address] [facility] [place], [place], [address] CBC-COMPLETE BLOOD CNT Collected: 11/30/2017 Status: F Source: [place] NO DIFF 6:40 AM [facility] REPOSITORY Order Comment: 415 TYPE CODE TESTS RESULT OUT OF RANGE REFERENCE UNITS LAB L100.1000 4.4-11.0 K/mm3 Normal WBC 9.8 LAB L100.1200 4.2-5.4 M/mm3 Low RBC 3.20 LAB L100.1300 12.0-15.0 g/dl Low HGB 9.3 LAB L100.1400 37-47 % Low HCT 29.1 LAB L100.1500 81-99 fL Normal MCV 90.9 LAB L100.1600 27.0-32.0 pg Normal MCH 29.1 LAB L100.1700 32-36 g/gl Normal MCHC 32.0 LAB L100.1810 11.6-14.6 % Normal RDW CV 14.4 LAB L100.1820 35.1-43.9 fl High RDW SD 45.9 LAB L100.1900 150-450 K/mm3 High PLT 617 LAB L100.2000 6.2-12.0 fl Normal MPV 9.9 Performed By: #### L100.0500 #### [facility] [address] [place], [place], [address] BASIC METABOLIC Collected: 11/30/2017 Status: F Source: [place] PROFILE (BMP) 6[facility]40 [facility] Order Comment: 415 TYPE CODE TESTS RESULT OUT OF RANGE REFERENCE UNITS LAB L501.0100 74-106 mg/dL Normal GLU 92 Result Comment: Please note revised GLUCOSE reference range effective 2017. LAB L501.1000 7-18 mg/dL Normal BUN 12 LAB L501.1100 0.55-1.02 mg/dL Normal CREAT,SERUM 0.97 Result Comment: The validity of the calculated GFR AND GFRAA in patients over 70 years has not been determined. Clinical correlation is essential. LAB L501.1110 >60 mL/min Low EST GFR 58 Result Comment: Non- GFR Calc LAB L501.1115 >60 mL/min Normal EST GFR - AA 70 Result Comment: GFR Calc LAB L501.1300 10-20 RATIO Normal BUN/CRE 12.3 LAB L501.2200 8.5-10.1 mg/dL Low CA 8.1 LAB L501.5300 136-145 mmol/L High NA 148 LAB L501.5600 3.5-5.1 mmol/L K Normal 3.5 LAB L501.5900 98-107 mmol/L High CL 111 LAB L501.6100 21.0-32.0 mmol/L Normal CO2 31.0 LAB L501.6200 5-15 Normal GAP 6 Performed By: #### L500.2500 #### [facility] [address] [place], [place] [address]all [place], [address] CNDS Observed: 11/27/2017 Status: COMPLETED Source: [place] 12:34 PM [facility] [place] REPOSITORY HNO ID: [id number] Author: Avril Duque Service: (none) Author Type: Physician Type: Discharge Summaries Filed: 03/15/2018 7:09 PM Note Text: [place] [address] HEALTH INFORMATION MANAGEMENT CLINICAL RESUME Patient: SG VELASCO JIE M.D. [id number] [age] F Status: DIS IN [facility] 2222-A Date of Admission: 11/20/17 Date of Discharge: 11/27/17 CHIEF COMPLAINT Altered mental status and fever. CONSULTS Consults to pulmonology, general surgery and infection disease specialist. PROCEDURE IVC filter placement. DISCHARGE DIAGNOSES 1. Extensive PE. 2. Mental status changes due to fever and PE. 3. Bilateral DVT status post IVC filter placement. 4. New onset atrial fibrillation. 5. UTI with ESBL. 6. Lung mass. 7. Coagulopathy due to Coumadin treatment. 8. Pulmonary infarct. 9. Hilar lymphadenopathy. SUMMARY The patient is an 82-year-old female who came to the emergency room with mental status changes and fever. She is also found to be in AFib with RVR. Initial study in the emergency room indicated pulmonary embolism. She was started on IV heparin and admitted for further care. HOSPITAL COURSE Subsequent Doppler study indicated bilateral DVT. The patient was evaluated by general surgery and IVC filter was placed due to high clot burden. She is also found to have a lung mass. The recommendation from chief nurse executive is to continue anticoagulation and check a PET scan 4 weeks later. During the hospital stay, the patient is found to have UTI with ESBL. This was treated with IV antibiotics and the recommendation is from an infectious disease specialist. The patient did develop diffuse rash which is thought to be related to antibiotics and antibiotic was discontinued. Today she is doing fairly well. INR is trending down to 3.1. PHYSICAL EXAMINATION Vitals: Temperature 97.9, pulse rate 65, respirations 24, blood pressure 136/66. Neck is supple. No JVD. Lungs clear. Heart: S1, S2 irregular. Abdomen is soft, nontender. Extremities: No edema. Rash is fading. Neuro: Awake, alert, oriented x3, no deficits. LABS White count 11.8, hemoglobin 9.4, platelet count 595,000. CONDITION Her condition has improved. DISPOSITION Will be discharged to a [facility]. ACTIVITY As tolerated. DIET Cardiac. DISCHARGE MEDICATIONS 1. She may resume all of her home meds except sotalol is added. 2. Coumadin 3 mg daily. 3. Sotalol 40 twice a day. 4. Lopressor 25 daily. FOLLOWUP The patient should follow up with chief nurse executive in 4 weeks regarding lung biopsy and PET scan. DISCHARGE TIME Thirty five minutes. <Electronically signed by DILAN BRIZUELA M.D.> 12/04/17 0705 AVRIL DUQUE M.D. cc: AVRIL DUQUE M.D. << Signature on File>> Reported By: AVRIL DUQUE M.D. Signed By: DILAN BRIZUELA M.D. Tests performed at: [address] [address] CLINICAL RESUME Observed: 11/27/2017 Status: F Source: [place] 12:34 [place] [address] HEALTH INFORMATION MANAGEMENT CLINICAL RESUME Patient: SG VELASCO AVRIL DUQUE M.D. [id number] [age] F Status: DIS IN [facility] 2222-A Date of Admission: 11/20/17 Date of Discharge: 11/27/17 CHIEF COMPLAINT Altered mental status and fever. CONSULTS Consults to pulmonology, general surgery and infection disease specialist. PROCEDURE IVC filter placement. DISCHARGE DIAGNOSES 1. Extensive PE. 2. Mental status changes due to fever and PE. 3. Bilateral DVT status post IVC filter placement. 4. New onset atrial fibrillation. 5. UTI with ESBL. 6. Lung mass. 7. Coagulopathy due to Coumadin treatment. 8. Pulmonary infarct. 9. Hilar lymphadenopathy. SUMMARY The patient is an 82-year-old female who came to the emergency room with mental status changes and fever. She is also found to be in AFib with RVR. Initial study in the emergency room indicated pulmonary embolism. She was started on IV heparin and admitted for further care. HOSPITAL COURSE Subsequent Doppler study indicated bilateral DVT. The patient was evaluated by general surgery and IVC filter was placed due to high clot burden. She is also found to have a lung mass. The recommendation from chief nurse executive is to continue anticoagulation and check a PET scan 4 weeks later. During the hospital stay, the patient is found to have UTI with ESBL. This was treated with IV antibiotics and the recommendation is from an infectious disease specialist. The patient did develop diffuse rash which is thought to be related to antibiotics and antibiotic was discontinued. Today she is doing fairly well. INR is trending down to 3.1. PHYSICAL EXAMINATION Vitals: Temperature 97.9, pulse rate 65, respirations 24, blood pressure 136/66. Neck is supple. No JVD. Lungs clear. Heart: S1, S2 irregular. Abdomen is soft, nontender. Extremities: No edema. Rash is fading. Neuro: Awake, alert, oriented x3, no deficits. LABS White count 11.8, hemoglobin 9.4, platelet count 595,000. CONDITION Her condition has improved. DISPOSITION Will be discharged to a [facility]. ACTIVITY As tolerated. DIET Cardiac. DISCHARGE MEDICATIONS 1. She may resume all of her home meds except sotalol is added. 2. Coumadin 3 mg daily. 3. Sotalol 40 twice a day. 4. Lopressor 25 daily. FOLLOWUP The patient should follow up with chief nurse executive in 4 weeks regarding lung biopsy and PET scan. DISCHARGE TIME Thirty five minutes. <Electronically signed by DILAN BRIZUELA M.D.> 12/04/17 1810 AVRIL DUQUE M.D. cc: AVRIL DUQUE M.D. << Signature on File>> Reported By: AVRIL DUQUE M.D. Signed By: DILAN BRIZUELA M.D. Tests performed at: [address] [address] CBC Collected: 11/27/2017 Status: F Source: [facility] 4:29 AM HOSPITAL REPOSITORY TYPE CODE TESTS RESULT OUT OF RANGE REFERENCE UNITS LAB L200.0100 4.5-10.0 x10(3) High WBC 11.8 LAB L200.0200 3.30-5.00 x10(6) Low RBC 3.17 LAB L200.0210 12.0-16.0 g/dL Low HGB 9.4 LAB L200.0220 36.0-48.0 % Low HCT 27.5 LAB L200.0230 80.0-99.0 fl Normal MCV 87.0 LAB L200.0240 28.5-32.9 pg Normal MCH 29.6 LAB L200.0250 33.0-36.0 g/dL Normal MCHC 34.0 LAB L200.0260 12.5-15.7 % Normal RDW 14.3 LAB L200.0270 150-450 X10(3) High PLT 595 LAB L200.0290 7.5-9.5 fl Normal MPV 8.0 LAB L200.0300 45.0-73.0 % Normal NEUT% 72.5 LAB L200.0310 16.0-48.0 % Normal LYMPH% 19.0 LAB L200.0320 4.3-11.2 % Normal MONO% 6.4 LAB L200.0330 0.5-4.9 % Normal EOS% 1.2 LAB L200.0340 0.0-1.0 % Normal BASO% 0.9 LAB L200.0350 1.40-6.50 x10(3) High NEUT# 8.60 LAB L200.0360 1.00-3.50 x10(3) Normal LYMPH# 2.30 LAB L200.0370 0.30-0.80 x10(3) Normal MONO# 0.80 LAB L200.0380 0.00-0.54 x10(3) Normal EOS# 0.10 LAB L200.0390 0.00-0.10 x10(3) Normal BASO# 0.10 Performed By: #### L200.0010 #### [facility] [address] [place] [address] PT Collected: 11/27/2017 Status: F Source: [facility] 4:29 AM HOSPITAL REPOSITORY TYPE CODE TESTS RESULT OUT OF RANGE REFERENCE UNITS LAB L200.1612 9.4-12.5 secs High PROTIME 37.1 LAB L200.1622 Normal INR 3.2 Result Comment: COUMADIN PROTOCOLS INR values are generated for use in patients on coumadin. INR values stabilize 7 days after the start of coumadin or changes in coumadin dosage. The usual TARGET/INR range is: INDICATION INR RANGE Prophylaxis/treatment of: Venous Thrombosis, Pulmonary Embolism 2.0-3.0 Prevention of systemic embolism from: Tissue heart valves 2.0-3.0 Acute myocardial infarction (to prevent systemic embolism) 2.0-3.0 AMI (to prevent recurrent CO) 2.5-3.5 Valvular heart disease 2.0-3.0 Atrial fibrillation 2.0-3.0 Mechanical prosthetic valves (high risk) 2.5-3.5 Bileaflet mechanical valve in aortic position 2.0-3.0 Presence of Lupus Anticoagulant or Antiphospholipid Antibodies 2.5-3.5 PANIC VALUE: GREATER THAN OR EQUAL TO 4.5 Performed By: #### L200.1602 #### [facility] [address] [place] [address] PROGRESS Observed: 11/26/2017 Status: COMPLETED Source: [place] 10:20 AM [facility] REPOSITORY HNO ID: [id number] Author: Avril Duque Service: (none) Author Type: Physician Type: Progress Notes Filed: 03/15/2018 7:07 PM Note Text: [place] [address] PROGRESS NOTES Patient: PAULA VELASCOAVRIL CAMARA M.D. [id number] [age] F Status: ADM IN [facility] 2222-A Report Date AND Time: 11/26/17 1020 Subjective * Please Note: doing better, diffuse rash no chest pain or SOB no signs of bleeding no abd pain, no dysuria All systems reviewed and all are negative except systems noted. Objective Focused Exam Performed General Appearance Alert, Oriented X3, Cooperative HEENT Atraumatic, PERRLA, EOMI Lungs Clear to Auscultation Neck Supple, No JVD Cardiovascular Irregular Rhythm Abdomen Normal Bowel Sounds, Soft, No Tenderness Extremities No Edema Skin Rash Neurological Cranial Nerves 2-12 NL, Intact/non-focal Physical Therapy Ambulated Nutrition PO Reviewed - Daily Reviewed Information Medications, Progress Notes, Labs Labs/Vitals/Meds/Orders Coagulation Range/Units 11/26 0407 Coagulation PT 9.4 - 12.5 secs 39.4 H INR 3.4 Hematology Range/Units 11/26 0408 Hematology WBC 4.5 - 10.0 x10(3) 10.5 H RBC 3.30 - 5.00 x10(6) 3.24 L Hgb 12.0 - 16.0 g/dL 9.5 L Hct 36.0 - 48.0 % 28.4 L MCV 80.0 - 99.0 fl 87.5 MCH 28.5 - 32.9 pg 29.4 MCHC 33.0 - 36.0 g/dL 33.6 RDW 12.5 - 15.7 % 14.6 Plt Count 150 - 450 X10(3) 569 H MPV 7.5 - 9.5 fl 8.0 Neut % (Auto) 45.0 - 73.0 % 64.5 Lymph % (Auto) 16.0 - 48.0 % 19.9 Burleigh % (Auto) 4.3 - 11.2 % 6.9 Eos % (Auto) 0.5 - 4.9 % 7.4 H Baso % (Auto) 0.0 - 1.0 % 1.3 H Neut # (Auto) 1.40 - 6.50 x10(3) 6.80 H Lymph # (Auto) 1.00 - 3.50 x10(3) 2.10 Burleigh # (Auto) 0.30 - 0.80 x10(3) 0.70 Eos # (Auto) 0.00 - 0.54 x10(3) 0.80 H Baso # (Auto) 0.00 - 0.10 x10(3) 0.10 Microbiology Date/Time Procedure - Status Source Growth 11/20 1452 Fungal Culture - RES PLEURAL FL 11/20 1452 Fungal Smear - RES PLEURAL FL 11/20 1452 AFB Plated Culture - RES PLEURAL FL 11/20 1452 AFB Fluorescent Stain - RES PLEURAL FL 11/20 UNK Body Fluid Culture - COMP PLEURAL FL NO GROWTH 11/20 UNK Gram Stain - COMP PLEURAL FL 11/19 2034 Blood Culture - COMP BLOOD 11/20 2031 Urine Culture - COMP URINE ESCHERICHIA COLI Vital Signs Date Time Temp Pulse Resp B/P B/P Pulse O2 O2 Flow FiO2 Mean Ox Delivery Rate 11/26 0819 66 113/85 11/26 0819 66 113/85 11/26 0818 66 113/85 11/26 0748 97.0 66 20 113/85 95 11/26 0717 RA 11/26 0717 RA 11/26 0717 RA 11/26 0000 99.7 78 20 118/57 92 11/25 2034 66 138/69 11/25 1520 98.9 66 15 138/69 93 11/25 1159 RA 11/25 1150 97.0 64 22 127/61 95 Intake AND Output 11/26 0700 11/25 2300 11/25 1500 Intake Total 240 420 Output Total 350 200 Balance -350 40 420 Current Medications Sig/Hue Start time Last Medication Dose Route Stop Time Status Admin Prednisone 40 MG QDAY 11/26 899 AC 11/26 PO 0955 Metoprolol Tartrate 25 MG DAILY 11/25 09 AC 11/26 PO 0819 Sotalol HCl 40 MG BID 11/23 09 AC 11/26 PO 0818 Diphenhydramine HCl 25 MG Q6HPRN PRN 11/22 1000 AC 11/26 PO 0414 Hydrocodone Bitart/ 1 TAB Q4HPRN PRN 11/20 1700 AC 11/24 Acetaminophen PO 2102 Meperidine HCl 25 MG Q2HPRN PRN 11/20 1700 AC 11/20 IV 2342 Ondansetron HCl 4 MG Q8HPRN PRN 11/20 1700 AC IV Losartan Potassium 100 MG QDAY 11/20 899 AC 11/26 PO 0819 Pantoprazole Sodium 40 MG QDAY 11/20 09 AC 11/26 PO 0818 Raloxifene HCl 60 MG QDAY 11/20 09 AC 11/26 PO 0818 Levothyroxine Sodium 0.15 MG QDAY@0630 11/20 0630 AC 11/26 PO 0559 Acetaminophen 650 MG Q6HPRN PRN 11/20 0315 AC 11/26 PO 0414 Albuterol/Ipratropium 3 ML Q4HPRN PRN 11/20 0315 AC 11/25 IH 1155 Ondansetron HCl 4 MG Q4HPRN PRN 11/20 0315 AC IV Orders Procedure Date/time Status PT/INR 11/27 0400 Active COMPLETE BLOOD COUNT 11/26 0400 Complete THER PROC GAIT TRAIN EA 15 MIN 11/25 UNK Complete Plan Plans Additional Comments 1. Mental status changes, likely due to fever--resolved 2. Pulmonary embolus/lung infarct--cont coumadin and monitor INR. INR 3.4 today. cont to hold coumadin 3. New onset AFib--cont rate control and AC 4. New lung mass, left upper lobe, seen on the CT scan--outpatient bx 5. HTN--cont BP meds 6 DVT s/p filter-- up to chair 7 UTI,esbl--finished treatment 8 rash--poss drug rash. try prednisone and benadryl PRN d/c planning to ECF <Electronically signed by AVRIL DUQUE M.D.> 11/26/17 1025 AVRIL DUQUE M.D. << Signature on File>> Reported By: AVRIL DUQUE M.D. Signed By: AVRIL DUQUE M.D. Tests performed at: [address] [address] CBC Collected: 11/26/2017 Status: F Source: [facility] 4:08 AM HOSPITAL REPOSITORY TYPE CODE TESTS RESULT OUT OF RANGE REFERENCE UNITS LAB L200.0100 4.5-10.0 x10(3) High WBC 10.5 LAB L200.0200 3.30-5.00 x10(6) Low RBC 3.24 LAB L200.0210 12.0-16.0 g/dL Low HGB 9.5 LAB L200.0220 36.0-48.0 % Low HCT 28.4 LAB L200.0230 80.0-99.0 fl Normal MCV 87.5 LAB L200.0240 28.5-32.9 pg Normal MCH 29.4 LAB L200.0250 33.0-36.0 g/dL Normal MCHC 33.6 LAB L200.0260 12.5-15.7 % Normal RDW 14.6 LAB L200.0270 150-450 X10(3) High PLT 569 LAB L200.0290 7.5-9.5 fl Normal MPV 8.0 LAB L200.0300 45.0-73.0 % Normal NEUT% 64.5 LAB L200.0310 16.0-48.0 % Normal LYMPH% 19.9 LAB L200.0320 4.3-11.2 % Normal MONO% 6.9 LAB L200.0330 0.5-4.9 % High EOS% 7.4 LAB L200.0340 0.0-1.0 % High BASO% 1.3 LAB L200.0350 1.40-6.50 x10(3) High NEUT# 6.80 LAB L200.0360 1.00-3.50 x10(3) Normal LYMPH# 2.10 LAB L200.0370 0.30-0.80 x10(3) Normal MONO# 0.70 LAB L200.0380 0.00-0.54 x10(3) High EOS# 0.80 LAB L200.0390 0.00-0.10 x10(3) Normal BASO# 0.10 Performed By: #### L200.0010 #### [facility] [address] [place] [address] PT Collected: 11/26/2017 Status: F Source: [facility] 4:07 AM HOSPITAL REPOSITORY TYPE CODE TESTS RESULT OUT OF RANGE REFERENCE UNITS LAB L200.1612 9.4-12.5 secs High PROTIME 39.4 LAB L200.1622 Normal INR 3.4 Result Comment: COUMADIN PROTOCOLS INR values are generated for use in patients on coumadin. INR values stabilize 7 days after the start of coumadin or changes in coumadin dosage. The usual TARGET/INR range is: INDICATION INR RANGE Prophylaxis/treatment of: Venous Thrombosis, Pulmonary Embolism 2.0-3.0 Prevention of systemic embolism from: Tissue heart valves 2.0-3.0 Acute myocardial infarction (to prevent systemic embolism) 2.0-3.0 AMI (to prevent recurrent CO) 2.5-3.5 Valvular heart disease 2.0-3.0 Atrial fibrillation 2.0-3.0 Mechanical prosthetic valves (high risk) 2.5-3.5 Bileaflet mechanical valve in aortic position 2.0-3.0 Presence of Lupus Anticoagulant or Antiphospholipid Antibodies 2.5-3.5 PANIC VALUE: GREATER THAN OR EQUAL TO 4.5 Performed By: #### L200.1602 #### [facility] [address] [place] [address] PROGRESS Observed: 11/25/2017 Status: COMPLETED Source: [place] 2:21 PM [facility] [place] REPOSITORY HNO ID: [id number] Author: Blake Thomson Service: (none) Author Type: Physician Type: Progress Notes Filed: 03/15/2018 7:06 PM Note Text: [place] [address] PROGRESS NOTES Patient: SG VELASCO GABRIEL R M.D. [id number] [age] F Status: ADM IN [facility] 2222-A Report Date AND Time: 11/25/17 1421 Subjective * Please Note: Covering for Dr. Lobato. Asked to see pt today because of rash. Pt says rash was present earlier in her hospitalization. It initially got a little better but now getting worse again. It is on her trunk and legs. It is itchy. No pain with the rash. No facial or mouth/throat swelling. Denies f/c. No dysuria. Pt has been off antibiotics for about 2 days. Objective Focused Exam Performed General Appearance Alert, Cooperative, No Acute Distress HEENT no angioedema. No oral mucosal ulcers. Lungs no current wheezing., no respiratory distress. Cardiovascular Irregular Rhythm Abdomen Soft, No Tenderness Skin Rash, maculopapular rash of the trunk. Much less so on the legs. Reviewed - Daily Labs/Vitals/Meds/Orders Coagulation Range/Units 11/25 0420 Coagulation PT 9.4 - 12.5 secs 48.6 H INR 4.2 Hematology Range/Units 11/25 0420 Hematology WBC 4.5 - 10.0 x10(3) 12.2 H RBC 3.30 - 5.00 x10(6) 3.42 Hgb 12.0 - 16.0 g/dL 9.9 L Hct 36.0 - 48.0 % 30.0 L MCV 80.0 - 99.0 fl 87.8 MCH 28.5 - 32.9 pg 29.1 MCHC 33.0 - 36.0 g/dL 33.1 RDW 12.5 - 15.7 % 14.4 Plt Count 150 - 450 X10(3) 566 H MPV 7.5 - 9.5 fl 8.1 Neut % (Auto) 45.0 - 73.0 % 70.0 Lymph % (Auto) 16.0 - 48.0 % 17.8 Burleigh % (Auto) 4.3 - 11.2 % 6.3 Eos % (Auto) 0.5 - 4.9 % 5.4 H Baso % (Auto) 0.0 - 1.0 % 0.5 Neut # (Auto) 1.40 - 6.50 x10(3) 8.60 H Lymph # (Auto) 1.00 - 3.50 x10(3) 2.20 Burleigh # (Auto) 0.30 - 0.80 x10(3) 0.80 Eos # (Auto) 0.00 - 0.54 x10(3) 0.70 H Baso # (Auto) 0.00 - 0.10 x10(3) 0.10 Microbiology Date/Time Procedure - Status Source Growth 11/20 1452 Fungal Culture - RES PLEURAL FL 11/20 1452 Fungal Smear - RES PLEURAL FL 11/20 145 AFB Plated Culture - RES PLEURAL FL 11/20 1452 AFB Fluorescent Stain - RES PLEURAL FL 11/20 UNK Body Fluid Culture - COMP PLEURAL FL NO GROWTH 11/20 UNK Gram Stain - COMP PLEURAL FL 11/19 2034 Blood Culture - COMP BLOOD 11/20 2031 Urine Culture - COMP URINE ESCHERICHIA COLI Vital Signs Date Time Temp Pulse Resp B/P B/P Pulse O2 O2 Flow FiO2 Mean Ox Delivery Rate 11/25 1159 RA 11/25 1150 97.0 64 22 127/61 95 11/25 0820 72 142/82 11/25 0820 72 142/82 11/25 0820 72 142/82 11/25 0734 RA 11/25 0734 RA 11/25 0734 11/25 0721 97.6 72 20 142/82 95 11/25 0257 97.3 72 16 126/65 92 11/24 2335 97.1 69 16 117/65 92 11/24 2051 73 102/6 11/24 1908 R/A 11/24 1600 97.2 73 20 102/61 95 Intake AND Output 11/25 0711/24 2300 11/24 1500 Intake Total 180 Output Total 500 150 200 Balance -500 -150 -20 Current Medications Sig/Hue Start time Last Medication Dose Route Stop Time Status Admin Metoprolol Tartrate 25 MG DAILY 11/25 09 AC 11/25 PO 0820 Sotalol HCl 40 MG BID 11/23 0900 AC 11/25 PO 0820 Diphenhydramine HCl 25 MG Q6HPRN PRN 11/22 1000 AC 11/24 PO 2227 Hydrocodone Bitart/ 1 TAB Q4HPRN PRN 11/20 1700 AC 11/24 Acetaminophen PO 2102 Meperidine HCl 25 MG Q2HPRN PRN 11/20 1700 AC 11/20 IV 2342 Ondansetron HCl 4 MG Q8HPRN PRN 11/20 1700 AC IV Losartan Potassium 100 MG QDAY 11/20 899 AC 11/25 PO 0820 Metoprolol Tartrate 50 MG BID 11/20 899 DC 11/24 PO 0846 Pantoprazole Sodium 40 MG QDAY 11/20 899 AC 11/25 PO 0820 Raloxifene HCl 60 MG QDAY 11/20 899 AC 11/25 PO 0820 Levothyroxine Sodium 0.15 MG QDAY@0630 11/20 0630 AC 11/25 PO 0553 Acetaminophen 650 MG Q6HPRN PRN 11/20 0315 AC 11/23 PO 1700 Albuterol/Ipratropium 3 ML Q4HPRN PRN 11/20 0315 AC 11/25 IH 1155 Ondansetron HCl 4 MG Q4HPRN PRN 11/20 0315 AC IV Orders Procedure Date/time Status PT/INR 11/26 0400 Active PT/INR 11/25 0400 Complete COMPLETE BLOOD COUNT 11/25 0400 Complete THER PROC GAIT TRAIN EA 15 MIN 11/25 UNK Complete THER PROC GAIT TRAIN EA 15 MIN 11/24 UNK Complete Problems Problems Current Problems 1. Rash Assessment/Plan Suspect drug reaction. Already off antibiotics. I would recommend to also review other meds on the list as possible culprits, especially if rash does not improve. No signs of TEN or SJS at this time. Continue to monitor off antibiotics. Defer symptomatic treatment and further management of the rash to the primary service. <Electronically signed by BLAKE THOMSON M.D.> 11/25/17 1426 BLAKE THOMSON M.D. << Signature on File>> Reported By: BLAKE THOMSON M.D. Signed By: BLAKE THOMSON M.D. Tests performed at: [address] [address] PROGRESS Observed: 11/25/2017 Status: COMPLETED Source: [place] 10:32 AM [facility] REPOSITORY HNO ID: [id number] Author: Avril Duque Service: (none) Author Type: Physician Type: Progress Notes Filed: 03/15/2018 7:06 PM Note Text: [place] [address] PROGRESS NOTES Patient: SG VELASCOAVRIL M.D. [id number] [age] F Status: ADM IN [facility] 2222-A Report Date AND Time: 11/25/17 1032 Subjective * Please Note: doing better, no new complaints no chest pain or SOB no signs of bleeding no abd pain, no dysuria All systems reviewed and all are negative except systems noted. Objective Focused Exam Performed General Appearance Alert, Oriented X3, Cooperative HEENT Atraumatic, PERRLA, EOMI Lungs Clear to Auscultation Neck Supple, No JVD Cardiovascular Irregular Rhythm Abdomen Normal Bowel Sounds, Soft, No Tenderness Extremities No Edema Skin Rash Neurological Cranial Nerves 2-12 NL, Intact/non-focal Physical Therapy Ambulated Nutrition PO Reviewed - Daily Reviewed Information Medications, Progress Notes, Labs Labs/Vitals/Meds/Orders Coagulation Range/Units 11/25 0420 Coagulation PT 9.4 - 12.5 secs 48.6 H INR 4.2 Hematology Range/Units 11/25 0420 Hematology WBC 4.5 - 10.0 x10(3) 12.2 H RBC 3.30 - 5.00 x10(6) 3.42 Hgb 12.0 - 16.0 g/dL 9.9 L Hct 36.0 - 48.0 % 30.0 L MCV 80.0 - 99.0 fl 87.8 MCH 28.5 - 32.9 pg 29.1 MCHC 33.0 - 36.0 g/dL 33.1 RDW 12.5 - 15.7 % 14.4 Plt Count 150 - 450 X10(3) 566 H MPV 7.5 - 9.5 fl 8.1 Neut % (Auto) 45.0 - 73.0 % 70.0 Lymph % (Auto) 16.0 - 48.0 % 17.8 Burleigh % (Auto) 4.3 - 11.2 % 6.3 Eos % (Auto) 0.5 - 4.9 % 5.4 H Baso % (Auto) 0.0 - 1.0 % 0.5 Neut # (Auto) 1.40 - 6.50 x10(3) 8.60 H Lymph # (Auto) 1.00 - 3.50 x10(3) 2.20 [place]leigh # (Auto) 0.30 - 0.80 x10(3) 0.80 Eos # (Auto) 0.00 - 0.54 x10(3) 0.70 H Baso # (Auto) 0.00 - 0.10 x10(3) 0.10 Microbiology Date/Time Procedure - Status Source Growth 11/20 1452 Fungal Culture - RES PLEURAL FL 11/20 1452 Fungal Smear - RES PLEURAL FL 11/20 1452 AFB Plated Culture - RES PLEURAL FL 11/20 1452 AFB Fluorescent Stain - RES PLEURAL FL 11/20 UNK Body Fluid Culture - COMP PLEURAL FL NO GROWTH 11/20 UNK Gram Stain - COMP PLEURAL FL 11/19 2034 Blood Culture - COMP BLOOD 11/20 2031 Urine Culture - COMP URINE ESCHERICHIA COLI Vital Signs Date Time Temp Pulse Resp B/P B/P Pulse O2 O2 Flow FiO2 Mean Ox Delivery Rate 11/25 0820 72 142/82 11/25 0820 72 142/82 11/25 0820 72 142/82 11/25 0734 RA 11/25 0734 RA 11/25 0734 RA 11/25 0721 97.6 72 20 142/82 95 11/25 0257 97.3 72 16 126/65 92 11/24 2335 97.1 69 16 117/65 92 11/24 2051 73 102/6 11/24 1908 R/A 11/24 1600 97.2 73 20 102/61 95 11/24 1217 97.1 68 22 107/69 97 Intake AND Output 11/25 0711/24 2300 11/24 1500 Intake Total 180 Output Total 500 150 200 Balance -500 -150 -20 Current Medications Sig/Hue Start time Last Medication Dose Route Stop Time Status Admin Metoprolol Tartrate 25 MG DAILY 11/25 899 AC 11/25 PO 08 Sotalol HCl 40 MG BID 11/23 09 AC 11/25 PO 0820 Diphenhydramine HCl 25 MG Q6HPRN PRN 11/22 1000 AC 11/24 PO 2227 Hydrocodone Bitart/ 1 TAB Q4HPRN PRN 11/20 1700 AC 11/24 Acetaminophen PO 2102 Meperidine HCl 25 MG Q2HPRN PRN 11/20 1700 AC 11/20 IV 2342 Ondansetron HCl 4 MG Q8HPRN PRN 11/20 1700 AC IV Losartan Potassium 100 MG QDAY 11/20 899 AC 11/25 PO 0820 Metoprolol Tartrate 50 MG BID 11/20 899 DC 11/24 PO 0846 Pantoprazole Sodium 40 MG QDAY 11/20 899 AC 11/25 PO 0820 Raloxifene HCl 60 MG QDAY 11/20 899 AC 11/25 PO 0820 Levothyroxine Sodium 0.15 MG QDAY@0630 11/20 0630 AC 11/25 PO 0553 Acetaminophen 650 MG Q6HPRN PRN 11/20 0315 AC 11/23 PO 1700 Albuterol/Ipratropium 3 ML Q4HPRN PRN 11/20 0315 AC 11/24 IH 1906 Ondansetron HCl 4 MG Q4HPRN PRN 11/20 0315 AC IV Orders Procedure Date/time Status PT/INR 11/26 0400 Active PT/INR 11/25 0400 Complete COMPLETE BLOOD COUNT 11/25 0400 Complete THER PROC GAIT TRAIN EA 15 MIN 11/24 UNK Complete Plan Plans Additional Comments 1. Mental status changes, likely due to fever--resolved 2. Pulmonary embolus/lung infarct--cont coumadin and monitor INR. INR 4.1 today. cont to hold coumadin 3. New onset AFib--cont rate control and AC 4. New lung mass, left upper lobe, seen on the CT scan--outpatient bx 5. HTN--cont BP meds 6 DVT s/p filter-- up to chair 7 UTI,esbl--finished treatment d/c planning to ECF <Electronically signed by AVRIL DUQUE M.D.> 11/25/17 1036 VARIL DUQUE M.D. << Signature on File>> Reported By: AVRIL DUQUE M.D. Signed By: AVRIL DUQUE M.D. Tests performed at: [place] [address] [place] [address] CBC Collected: 11/25/2017 Status: F Source: [facility] 4:20 AM HOSPITAL REPOSITORY TYPE CODE TESTS RESULT OUT OF RANGE REFERENCE UNITS LAB L200.0100 4.5-10.0 x10(3) High WBC 12.2 LAB L200.0200 3.30-5.00 x10(6) Normal RBC 3.42 LAB L200.0210 12.0-16.0 g/dL Low HGB 9.9 LAB L200.0220 36.0-48.0 % Low HCT 30.0 LAB L200.0230 80.0-99.0 fl Normal MCV 87.8 LAB L200.0240 28.5-32.9 pg Normal MCH 29.1 LAB L200.0250 33.0-36.0 g/dL Normal MCHC 33.1 LAB L200.0260 12.5-15.7 % Normal RDW 14.4 LAB L200.0270 150-450 X10(3) Abnormal PLT 566 Result Comment: Delta check (#) indicates a significant change in this laboratory value. It needs clinical correlation with patient situation or treatment. If the change in this test does not match your clinical situation or therapy, you may wish to re-test to verify the result. LAB L200.0290 7.5-9.5 fl Normal MPV 8.1 LAB L200.0300 45.0-73.0 % Normal NEUT% 70.0 LAB L200.0310 16.0-48.0 % Normal LYMPH% 17.8 LAB L200.0320 4.3-11.2 % Normal MONO% 6.3 LAB L200.0330 0.5-4.9 % High EOS% 5.4 LAB L200.0340 0.0-1.0 % Normal BASO% 0.5 LAB L200.0350 1.40-6.50 x10(3) High NEUT# 8.60 LAB L200.0360 1.00-3.50 x10(3) Normal LYMPH# 2.20 LAB L200.0370 0.30-0.80 x10(3) Normal MONO# 0.80 LAB L200.0380 0.00-0.54 x10(3) High EOS# 0.70 LAB L200.0390 0.00-0.10 x10(3) Normal BASO# 0.10 Performed By: #### L200.0010 #### [facility] - [facility]AT[facility] [address] [place] [address] PT Collected: 11/25/2017 Status: F Source: [facility] 4:20 AM HOSPITAL REPOSITORY TYPE CODE TESTS RESULT OUT OF RANGE REFERENCE UNITS LAB L200.1612 9.4-12.5 secs High PROTIME 48.6 LAB L200.1622 Normal INR 4.2 Result Comment: COUMADIN PROTOCOLS INR values are generated for use in patients on coumadin. INR values stabilize 7 days after the start of coumadin or changes in coumadin dosage. The usual TARGET/INR range is: INDICATION INR RANGE Prophylaxis/treatment of: Venous Thrombosis, Pulmonary Embolism 2.0-3.0 Prevention of systemic embolism from: Tissue heart valves 2.0-3.0 Acute myocardial infarction (to prevent systemic embolism) 2.0-3.0 AMI (to prevent recurrent CO) 2.5-3.5 Valvular heart disease 2.0-3.0 Atrial fibrillation 2.0-3.0 Mechanical prosthetic valves (high risk) 2.5-3.5 Bileaflet mechanical valve in aortic position 2.0-3.0 Presence of Lupus Anticoagulant or Antiphospholipid Antibodies 2.5-3.5 PANIC VALUE: GREATER THAN OR EQUAL TO 4.5 Performed By: #### L200.1602 #### [facility] - [facility]ATORY [address] [place] [id number] PROGRESS Observed: 11/24/2017 Status: COMPLETED Source: [place] 5:44 PM [facility] RE[facility] HNO ID: [id number] Author: Zafar Cook Service: (none) Author Type: (none) Type: Progress Notes Filed: 03/15/2018 7:05 PM Note Text: [place] [address] PROGRESS NOTES Patient: SG VELASCO WAYNE D D.O. [id number] F Status: DIS IN [facility] 2222-A Report Date AND Time: 11/24/17 6874 Objective Focused Exam Performed General Appearance Alert, Cooperative, No Acute Distress HEENT Atraumatic, WNL Lungs Diminished Neck No JVD Cardiovascular Irregular Rhythm, Normal S1, S2, Murmur (holosystolic) Abdomen Soft, No Tenderness Extremities No Edema Skin No Significant Lesion Neurological Normal Speech, Intact/non-focal, Age Appropriate Psych/Mental Status Normal Affect, Normal Mood, Pleasant Nutrition PO Reviewed - Daily Labs/Vitals/Meds/Orders Coagulation Range/Units 11/24 0525 Coagulation PT 9.4 - 12.5 secs 58.2 H INR 5.1 cH APTT 25.1 - 36.5 secs 70.3 H Hematology Range/Units 11/24 0525 Hematology WBC 4.5 - 10.0 x10(3) 11.8 H RBC 3.30 - 5.00 x10(6) 3.24 L Hgb 12.0 - 16.0 g/dL 9.6 L Hct 36.0 - 48.0 % 28.4 L MCV 80.0 - 99.0 fl 87.8 MCH 28.5 - 32.9 pg 29.5 MCHC 33.0 - 36.0 g/dL 33.6 RDW 12.5 - 15.7 % 14.5 Plt Count 150 - 450 X10(3) 427 MPV 7.5 - 9.5 fl 8.5 Neut % (Auto) 45.0 - 73.0 % 92.3 H Lymph % (Auto) 16.0 - 48.0 % 5.1 L [place]leigh % (Auto) 4.3 - 11.2 % 2.4 L Eos % (Auto) 0.5 - 4.9 % 0.1 L Baso % (Auto) 0.0 - 1.0 % 0.1 Neut # (Auto) 1.40 - 6.50 x10(3) 10.90 H Lymph # (Auto) 1.00 - 3.50 x10(3) 0.60 L [place]leigh # (Auto) 0.30 - 0.80 x10(3) 0.30 Eos # (Auto) 0.00 - 0.54 x10(3) 0.00 Baso # (Auto) 0.00 - 0.10 x10(3) 0.00 Chemistry Range/Units 11/24 0525 Chemistry Sodium 135 - 145 mmol/L 139 Potassium 3.5 - 5.0 mmol/L 3.7 Chloride 98 - 107 mmol/L 102 Carbon Dioxide 22 - 29 mmol/L 23 Anion Gap 15 - 22 mmol/L 17.7 BUN 8 - 23 mg/dL 12 Creatinine 0.50 - 0.90 mg/dL 0.83 Est GFR ( Amer) > 60 ml/min/1.73m2 Est GFR (Non-Af Amer) > 60 ml/Min/1.73m2 Glucose 82 - 115 mg/dL 166 H Calcium 8.8 - 10.2 mg/dL 8.5 L Total Bilirubin 0.2 - 1.2 mg/dL <0.2 AST 5 - 32 U/L 17 ALT 5 - 33 U/L 9 Alkaline Phosphatase 35 - 105 U/L 64 Total Protein 6.4 - 8.3 g/dL 5.5 L Albumin 3.5 - 5.2 g/dL 2.3 L Globulin 1.5 - 4.5 g/dL 3.2 Albumin/Globulin Ratio 1.1 - 2.5 0.71 L Microbiology Date/Time Procedure - Status Source Growth 11/20 1452 Fungal Culture - RES PLEURAL FL 11/20 1452 Fungal Smear - RES PLEURAL FL 11/20 1452 AFB Plated Culture - RES PLEURAL FL 11/20 1452 AFB Fluorescent Stain - RES PLEURAL FL 11/20 UNK Body Fluid Culture - COMP PLEURAL FL NO GROWTH 11/20 UNK Gram Stain - COMP PLEURAL FL 11/19 2034 Blood Culture - RES BLOOD 11/20 2031 Urine Culture - COMP URINE ESCHERICHIA COLI Vital Signs Date Time Temp Pulse Resp B/P B/P Pulse O2 O2 Flow FiO2 Mean Ox Delivery Rate 11/24 1600 97.2 73 20 102/61 95 11/24 1217 97.1 68 22 107/69 97 11/24 0846 71 112/54 11/24 0844 71 112/54 11/24 0844 71 112/54 11/24 0821 98.7 22 92 11/24 0653 RA 11/24 0653 11/24 0653 11/24 0325 97.7 71 16 137/69 95 11/23 2340 99.0 73 24 123/62 93 11/23 2145 95 142/68 11/23 2145 95 142/68 11/23 1834 RA 11/23 1817 99.1 Intake AND Output 11/24 0700 11/23 2300 11/23 1500 Intake Total 120 120 Output Total 1500 275 100 Balance -1500 -155 20 Current Medications Sig/Hue Start time Last Medication Dose Route Stop Time Status Admin Methylprednisolone 40 MG NOW STA 11/23 1836 DC 11/23 Sodium Succinate IV 11/23 1837 1934 Ertapenem 1 GM Q24H 11/23 1100 DC 11/23 Sodium Chloride 100 ML IV 1150 Sotalol HCl 40 MG BID 11/23 0900 AC 11/24 PO 0844 Diphenhydramine HCl 25 MG Q6HPRN PRN 11/22 1000 AC 11/23 PO 1813 Warfarin Sodium 7.5 MG QDAY17 11/21 1700 DC 11/23 PO 1626 Hydrocodone Bitart/ 1 TAB Q4HPRN PRN 11/20 1700 AC 11/23 Acetaminophen PO 0253 Meperidine HCl 25 MG Q2HPRN PRN 11/20 1700 AC 11/20 IV 2342 Ondansetron HCl 4 MG Q8HPRN PRN 11/20 1700 AC IV Losartan Potassium 100 MG QDAY 11/20 09 AC 11/24 PO 0844 Metoprolol Tartrate 50 MG BID 11/20 09 AC 11/24 PO 0846 Pantoprazole Sodium 40 MG QDAY 11/20 09 AC 11/24 PO 0846 Raloxifene HCl 60 MG QDAY 11/20 09 AC 11/24 PO 0846 Levothyroxine Sodium 0.15 MG QDAY@0630 11/20 0630 AC 11/24 PO 0536 Heparin Sodium See Dose PRN PRN 11/20 0330 DC 11/21 (Porcine) Insts (1) IV 1734 Heparin Sodium/ 500 ML PROTOCOL 11/20 0330 DC 11/23 Dextrose IV 1515 Acetaminophen 650 MG Q6HPRN PRN 11/20 0315 AC 11/23 PO 1700 Albuterol/Ipratropium 3 ML Q4HPRN PRN 11/20 0315 AC 11/23 IH 1829 Ondansetron HCl 4 MG Q4HPRN PRN 11/20 0315 AC IV Dose Instructions: (1)Heparin Sodium (Porcine): PER HIGH DOSE HEPARIN SLIDING SCALE Orders Procedure Date/time Status PTT 11/24 0400 Complete THER PROC GAIT TRAIN EA 15 MIN 11/24 UNK Complete Plan Plans Additional Comments inr high that is not uncommon breathinbg better sinus on beta pace we can stop that in 4 months thanks <Electronically signed by ZAFAR COOK D.O.> 12/04/17 1814 ZAFAR COOK D.O. << Signature on File>> Reported By: ZAFAR COOK D.O. Signed By: ZAFAR COOK D.O. Tests performed at: [address] [address] PROGRESS Observed: 11/24/2017 Status: COMPLETED Source: [place] 10:49 AM [facility] REPOSITORY HNO ID: [id number] Author: Avril Duque Service: (none) Author Type: Physician Type: Progress Notes Filed: 03/15/2018 7:05 PM Note Text: [place] [address] PROGRESS NOTES Patient: PAULA VELASCOAVRIL CAMARA M.D. [id number] [age] F Status: ADM IN [facility] 2222-A Report Date AND Time: 11/24/17 1049 Subjective * Please Note: doing better, no new complaints no chest pain or SOB no signs of bleeding no abd pain All systems reviewed and all are negative except systems noted. Objective Focused Exam Performed General Appearance Alert, Oriented X3, Cooperative HEENT Atraumatic, PERRLA, EOMI Lungs Clear to Auscultation Neck Supple, No JVD Cardiovascular Irregular Rhythm Abdomen Normal Bowel Sounds, Soft, No Tenderness Extremities No Edema Skin Rash Neurological Cranial Nerves 2-12 NL, Intact/non-focal Physical Therapy Ambulated Nutrition PO Reviewed - Daily Reviewed Information Medications, Progress Notes, Labs Labs/Vitals/Meds/Orders Coagulation Range/Units 11/24 0525 Coagulation PT 9.4 - 12.5 secs 58.2 H INR 5.1 cH APTT 25.1 - 36.5 secs 70.3 H Hematology Range/Units 11/24 0525 Hematology WBC 4.5 - 10.0 x10(3) 11.8 H RBC 3.30 - 5.00 x10(6) 3.24 L Hgb 12.0 - 16.0 g/dL 9.6 L Hct 36.0 - 48.0 % 28.4 L MCV 80.0 - 99.0 fl 87.8 MCH 28.5 - 32.9 pg 29.5 MCHC 33.0 - 36.0 g/dL 33.6 RDW 12.5 - 15.7 % 14.5 Plt Count 150 - 450 X10(3) 427 MPV 7.5 - 9.5 fl 8.5 Neut % (Auto) 45.0 - 73.0 % 92.3 H Lymph % (Auto) 16.0 - 48.0 % 5.1 L Burleigh % (Auto) 4.3 - 11.2 % 2.4 L Eos % (Auto) 0.5 - 4.9 % 0.1 L Baso % (Auto) 0.0 - 1.0 % 0.1 Neut # (Auto) 1.40 - 6.50 x10(3) 10.90 H Lymph # (Auto) 1.00 - 3.50 x10(3) 0.60 L Burleigh # (Auto) 0.30 - 0.80 x10(3) 0.30 Eos # (Auto) 0.00 - 0.54 x10(3) 0.00 Baso # (Auto) 0.00 - 0.10 x10(3) 0.00 Chemistry Range/Units 11/24 0525 Chemistry Sodium 135 - 145 mmol/L 139 Potassium 3.5 - 5.0 mmol/L 3.7 Chloride 98 - 107 mmol/L 102 Carbon Dioxide 22 - 29 mmol/L 23 Anion Gap 15 - 22 mmol/L 17.7 BUN 8 - 23 mg/dL 12 Creatinine 0.50 - 0.90 mg/dL 0.83 Est GFR ( Amer) > 60 ml/min/1.73m2 Est GFR (Non-Af Amer) > 60 ml/Min/1.73m2 Glucose 82 - 115 mg/dL 166 H Calcium 8.8 - 10.2 mg/dL 8.5 L Total Bilirubin 0.2 - 1.2 mg/dL <0.2 AST 5 - 32 U/L 17 ALT 5 - 33 U/L 9 Alkaline Phosphatase 35 - 105 U/L 64 Total Protein 6.4 - 8.3 g/dL 5.5 L Albumin 3.5 - 5.2 g/dL 2.3 L Globulin 1.5 - 4.5 g/dL 3.2 Albumin/Globulin Ratio 1.1 - 2.5 0.71 L Microbiology Date/Time Procedure - Status Source Growth 11/20 145 Fungal Culture - RES PLEURAL FL 11/20 145 Fungal Smear - RES PLEURAL FL 11/20 145 AFB Plated Culture - RES PLEURAL FL 11/20 1452 AFB Fluorescent Stain - RES PLEURAL FL 11/20 UNK Body Fluid Culture - COMP PLEURAL FL NO GROWTH 11/20 UNK Gram Stain - COMP PLEURAL FL 11/19 2034 Blood Culture - RES BLOOD 11/20 2031 Urine Culture - COMP URINE ESCHERICHIA COLI Vital Signs Date Time Temp Pulse Resp B/P B/P Pulse O2 O2 Flow FiO2 Mean Ox Delivery Rate 11/24 0846 71 112/54 11/24 0844 71 112/54 11/24 0844 71 112/54 11/24 0821 98.7 22 92 11/24 0653 RA 11/24 0653 RA 11/24 0653 RA 11/24 0325 97.7 71 16 137/69 95 11/23 2340 99.0 73 24 123/62 93 11/23 2145 95 142/68 11/23 2145 95 142/68 11/23 1834 RA 11/23 1817 99.1 11/23 1700 101.1 11/23 1449 RA Intake AND Output 11/24 0700 11/23 2300 11/23 1500 Intake Total 120 120 Output Total 1500 275 100 Balance -1500 -155 20 Current Medications Sig/Hue Start time Last Medication Dose Route Stop Time Status Admin Methylprednisolone 40 MG NOW STA 11/23 1836 DC 11/23 Sodium Succinate IV 11/23 1837 1934 Ertapenem 1 GM Q24H 11/23 1100 DC 11/23 Sodium Chloride 100 ML IV 1150 Sotalol HCl 40 MG BID 11/23 0900 AC 11/24 PO 0844 Diphenhydramine HCl 25 MG Q6HPRN PRN 11/22 1000 AC 11/23 PO 1813 Warfarin Sodium 7.5 MG QDAY17 11/21 1700 DC 11/23 PO 1626 Hydrocodone Bitart/ 1 TAB Q4HPRN PRN 11/20 1700 AC 11/23 Acetaminophen PO 0253 Meperidine HCl 25 MG Q2HPRN PRN 11/20 1700 AC 11/20 IV 2342 Ondansetron HCl 4 MG Q8HPRN PRN 11/20 1700 AC IV Losartan Potassium 100 MG QDAY 11/20 899 AC 11/24 PO 0844 Metoprolol Tartrate 50 MG BID 11/20 899 AC 11/24 PO 0846 Pantoprazole Sodium 40 MG QDAY 11/20 899 AC 11/24 PO 0846 Raloxifene HCl 60 MG QDAY 11/20 899 AC 11/24 PO 0846 Levothyroxine Sodium 0.15 MG QDAY@0630 11/20 629 AC 11/24 PO 0536 Heparin Sodium See Dose PRN PRN 11/20 0330 DC 11/21 (Porcine) Insts (1) IV 1734 Heparin Sodium/ 500 ML PROTOCOL 11/20 329 DC 11/23 Dextrose IV 1515 Acetaminophen 650 MG Q6HPRN PRN 11/20 0315 AC 11/23 PO 1700 Albuterol/Ipratropium 3 ML Q4HPRN PRN 11/20 0315 AC 11/23 IH 1829 Ondansetron HCl 4 MG Q4HPRN PRN 11/20 0315 AC IV Dose Instructions: (1)Heparin Sodium (Porcine): PER HIGH DOSE HEPARIN SLIDING SCALE Orders Procedure Date/time Status PTT 11/24 0400 Complete THER PROC GAIT TRAIN EA 15 MIN 11/23 UNK Complete Plan Plans Additional Comments 1. Mental status changes, likely due to fever--improving 2. Pulmonary embolus/lung infarct--cont coumadin and monitor INR. D/C heparin gtt. 3. New onset AFib--cont rate control and AC 4. New lung mass, left upper lobe, seen on the CT scan--outpatient bx 5. HTN--cont BP meds 6 DVT s/p filter-- up to chair 7 UTI,esbl--cont abx d/c planning to ECF <Electronically signed by AVRIL DUQUE M.D.> 11/24/17 1051 AVRIL DUQUE M.D. << Signature on File>> Reported By: AVRIL DUQUE M.D. Signed By: AVRIL DUQUE M.D. Tests performed at: [place] [address] [place], [place] [address] PROGRESS Observed: 11/24/2017 Status: COMPLETED Source: [place] 6:43 AM [facility] REPOSITORY HNO ID: [id number] Author: William Flores Service: (none) Author Type: Physician Type: Progress Notes Filed: 03/15/2018 7:04 PM Note Text: [place] [address] PULMONARY/CRITICAL CARE PROGRESS NOTES Patient: SG VELASCO WILLIAM V Machelle [id number] [age] F Status: ADM IN [facility] 2222-A Report Date AND Time: 11/24/17 0643 Subjective * Please Note: no specific complaints, pleasant no sob poc outlined d/w daughter here from [place], [place] All systems reviewed and all are negative except systems noted. Review of Systems Constitutional Denies: Anxiety, Body Aches, Pain, Chills, Fever, Weakness, Malaise/Fatigue, Hypersomnolence , Difficulty Sleeping, Night Sweats, Unexplained Weight Loss, General Health is:. Eyes Denies: Diplopia, Glaucoma, Photophobia, Change in Visual Acuity, Blurred Vision. ENT Denies: Ear Discharge/Wax, Chronic Ear Infections, Tinnitus, Hearing Loss, Vertigo. Cardiovascular Denies: Angina, Arrhythmia, CHF, Cardiomyopathy, Claudication, Cyanosis, Dizziness, DVT, Dyspnea on exertion, Edema, Hemoptysis, Night Sweats, Orthopnea, Jaw Pain, Palpitations, PVD , Phlebitis, Poor Exercise Tolerance, Rheumatic Fever, Shortness of Breath, Syncope, Tachycardia. Pulmonary Denies: Asbestos Exposure, Asthma, Cough, Hemoptysis, Hx of Pulmonary Embolism, Hypersomnolence, Orthopnea, Pleuritic Chest Pain, PND, Silcosis, Poor Sleep Quality, Snoring , Sputum Production, Tuberculosis, Wheezing, Pneumoconiosis. Gastrointestinal Denies: Constipation, Diarrhea, Diverticulosis, Dysphagia, GERD, Hematemesis, Hematochezia, Hepatitis, Jaundice, Melena, Peptic Ulcer Disease. Genitourinary Denies: Dysuria, Incontinence, Hematuria, Kidney Stones, Frequent UTI's. Musculoskeletal Denies: Ambulatory Dysfunction, Arthralgias, Intermittent Claudication, Myalgia, Paralysis, Paresthesia, Tremors, Weakness. Skin Denies: Alopecia, Ecchymosis, Eczema, Lesions, Masses, Petechiae, Pruritis, Purpura, Rashes, Varicose Veins. Breast Denies: Discharge, Masses, Pain. Neurological Denies: Ambulatory Dysfunction, Ataxia, CVA, Dysphagia, Epilepsy, Constant Headaches, Head Injury, Memory Loss, Paralysis, Paresthesia, Change in Speech, Syncope, TIA, Vertigo. Psych/Social Issues Denies: Alcoholism, Anxiety, Depression, Hallucinations, Homicidal Thoughts, Memory Loss, Paranoia, Personality Change, Psychosis, Schizophrenia, Suicidal Thoughts. Endocrine Denies: Diabetes, Polyphagia, Polyuria, Thyroid Disease. Hemo/Lymph Denies: Anemia, Excessive Bleeding, Blood/Clotting Disorder, Blood Transfusions, Lymphadenopathy, Radiation Treatment. Allergy/Immuno Denies: HIV, Recurrent Infections, IVDA, UTD on Immunizations. Objective Focused Exam Performed General Appearance Alert, Cooperative, Appears Stated Age, Mild Distress, Well developed Well hydrated Well nourished HEENT Atraumatic, PERRLA, WNL, Mucous membranes dry, External ears WNL Head and Face are normal on inspection Inferior turbinates are normal without hypertrophy Mallampati Score: Class3 Nasal mucosa is pink and moist No oral lesions or candidiasis Oropharynx appears normal Septum is midline Symmetric facies Tongue appears normal Lung Diminished, Crackles, AP diameter is unremarkable Chest is normal to inspection and palpation No bronchial breath sounds or pectoriloquy No dullness to percussion or egophony No extraneous sounds, wheeze, rale, rhonchi, rub No laryngeal stridor No use of accessory muscle noted Percussion is resonant and equal Respiratory rate is normal Voice resonance is clear Neck Supple (and symmetric), No JVD, No Thryomegaly, +2 Carotid Pulse wo Bruit (and equal bilaterally), No Lymphadopathy, Trachea midline Cardiovascular Irregular Rhythm, Normal S1, S2, Murmur, Good capillary refill, Normal Pulses, No clicks, gallop or rub Abdomen Normal Bowel Sounds (no bruits), No Tenderness (over the abdomen on percussion), No Hepatospenomegaly, No Masses, Obese, No bruit No femoral bruits No inguinal adenopathy No masses No pulsatile mass Extremities No Cyanosis, Edema, Normal Pulses, Capillary refill is normal Lower Extremities: Full ROM bilaterally Lower Extremities: Normal muscle tone bilaterally No LV or RV heave or cyanosis No clubbing No gross pulse deficits Upper Extremities: Full ROM bilaterally Upper Extremities: Normal muscle tone bilaterally Skin Rash, No Breakdown, No Significant Lesion, No Ulcers, No active synovitis Skin warm and dry , drug eruption Neurological Normal Speech, Normal Tone, Cranial Nerves 2-12 NL, Reflexes 2+, Intact/non-focal, Achilles and patellar DTR's are brisk and symmetrical Coordination is normal Cranial nerves are grossly intact Good mobility of all extremities Psych/Mental Status Pleasant, Flat Affect, Confused Lymph No palpable or visible regional lymphadenopathy Breast deferred Normal for Patient, Salgado for output measure, Salgado for urinary ret. Endocrine WNL Physical Therapy Ambulated Nutrition PO Stool Normal Other Physical Findings dvt's noted echo noted right effusion is uncomplicated exudate cxr is improving , RLL infiltrate inr=5.1 Reviewed - Daily Reviewed: Medications, Nurse Notes, Telemetry, DVT/Prophylaxis, Labs, INR, CXR, Vitals, Micro, Diagnostics Labs/Vitals/Meds/Orders Coagulation Range/Units 11/24 0525 Coagulation PT 9.4 - 12.5 secs 58.2 H INR 5.1 cH APTT 25.1 - 36.5 secs 70.3 H Hematology Range/Units 11/24 0525 Hematology WBC 4.5 - 10.0 x10(3) 11.8 H RBC 3.30 - 5.00 x10(6) 3.24 L Hgb 12.0 - 16.0 g/dL 9.6 L Hct 36.0 - 48.0 % 28.4 L MCV 80.0 - 99.0 fl 87.8 MCH 28.5 - 32.9 pg 29.5 MCHC 33.0 - 36.0 g/dL 33.6 RDW 12.5 - 15.7 % 14.5 Plt Count 150 - 450 X10(3) 427 MPV 7.5 - 9.5 fl 8.5 Neut % (Auto) 45.0 - 73.0 % 92.3 H Lymph % (Auto) 16.0 - 48.0 % 5.1 L Burleigh % (Auto) 4.3 - 11.2 % 2.4 L Eos % (Auto) 0.5 - 4.9 % 0.1 L Baso % (Auto) 0.0 - 1.0 % 0.1 Neut # (Auto) 1.40 - 6.50 x10(3) 10.90 H Lymph # (Auto) 1.00 - 3.50 x10(3) 0.60 L Burleigh # (Auto) 0.30 - 0.80 x10(3) 0.30 Eos # (Auto) 0.00 - 0.54 x10(3) 0.00 Baso # (Auto) 0.00 - 0.10 x10(3) 0.00 Chemistry Range/Units 11/24 0525 Chemistry Sodium 135 - 145 mmol/L 139 Potassium 3.5 - 5.0 mmol/L 3.7 Chloride 98 - 107 mmol/L 102 Carbon Dioxide 22 - 29 mmol/L 23 Anion Gap 15 - 22 mmol/L 17.7 BUN 8 - 23 mg/dL 12 Creatinine 0.50 - 0.90 mg/dL 0.83 Est GFR ( Amer) > 60 ml/min/1.73m2 Est GFR (Non-Af Amer) > 60 ml/Min/1.73m2 Glucose 82 - 115 mg/dL 166 H Calcium 8.8 - 10.2 mg/dL 8.5 L Total Bilirubin 0.2 - 1.2 mg/dL <0.2 AST 5 - 32 U/L 17 ALT 5 - 33 U/L 9 Alkaline Phosphatase 35 - 105 U/L 64 Total Protein 6.4 - 8.3 g/dL 5.5 L Albumin 3.5 - 5.2 g/dL 2.3 L Globulin 1.5 - 4.5 g/dL 3.2 Albumin/Globulin Ratio 1.1 - 2.5 0.71 L Microbiology Date/Time Procedure - Status Source Growth 11/20 1452 Fungal Culture - RES PLEURAL FL 11/20 1452 Fungal Smear - RES PLEURAL FL 11/20 1452 AFB Plated Culture - RES PLEURAL FL 11/20 1452 AFB Fluorescent Stain - RES PLEURAL FL 11/20 UNK Body Fluid Culture - COMP PLEURAL FL NO GROWTH 11/20 UNK Gram Stain - COMP PLEURAL FL 11/19 2034 Blood Culture - RES BLOOD 11/20 2031 Urine Culture - COMP URINE ESCHERICHIA COLI Vital Signs Date Time Temp Pulse Resp B/P B/P Pulse O2 O2 Flow FiO2 Mean Ox Delivery Rate 11/24 0325 97.7 71 16 137/69 95 11/23 2340 99.0 73 24 123/62 93 11/23 2145 95 142/68 11/23 2145 95 142/68 11/23 1834 RA 11/23 1817 99.1 11/23 1700 101.1 11/23 1449 RA 11/23 1019 RA 11/23 0856 100.5 11/23 0855 95 142/68 11/23 0855 95 142/68 11/23 0855 95 142/68 11/23 0645 RA 11/23 0645 RA 11/23 0645 RA Intake AND Output 11/24 0700 11/23 2300 11/23 1500 Intake Total 120 120 Output Total 1500 275 100 Balance -1500 -155 20 Current Medications Sig/Hue Start time Last Medication Dose Route Stop Time Status Admin Methylprednisolone 40 MG NOW STA 11/23 1836 DC 11/23 Sodium Succinate IV 11/23 1837 1934 Ertapenem 1 GM Q24H 11/23 1100 DC 11/23 Sodium Chloride 100 ML IV 1150 Sotalol HCl 40 MG BID 11/23 09 AC 11/23 PO 2145 Diphenhydramine HCl 25 MG Q6HPRN PRN 11/22 1000 AC 11/23 PO 1813 Warfarin Sodium 7.5 MG QDAY17 11/21 1700 DC 11/23 PO 1626 Ertapenem 1 GM Q24H 11/21 1300 DC 11/22 Sodium Chloride 100 ML IV 1210 Hydrocodone Bitart/ 1 TAB Q4HPRN PRN 11/20 1700 AC 11/23 Acetaminophen PO 0253 Meperidine HCl 25 MG Q2HPRN PRN 11/20 1700 AC 11/20 IV 2342 Ondansetron HCl 4 MG Q8HPRN PRN 11/20 1700 AC IV Losartan Potassium 100 MG QDAY 11/20 899 AC 11/23 PO 0855 Metoprolol Tartrate 50 MG BID 11/20 899 AC 11/23 PO 2145 Pantoprazole Sodium 40 MG QDAY 11/20 899 AC 11/23 PO 0855 Raloxifene HCl 60 MG QDAY 11/20 899 AC 11/23 PO 0854 Levothyroxine Sodium 0.15 MG QDAY@0630 11/20 0630 AC 11/24 PO 0536 Heparin Sodium See Dose PRN PRN 11/20 033 DC 11/21 (Porcine) Insts (1) IV 1734 Heparin Sodium/ 500 ML PROTOCOL 11/20 329 DC 11/23 Dextrose IV 1515 Acetaminophen 650 MG Q6HPRN PRN 11/20 0315 AC 11/23 PO 1700 Albuterol/Ipratropium 3 ML Q4HPRN PRN 11/20 0315 AC 11/23 IH 1829 Ondansetron HCl 4 MG Q4HPRN PRN 11/20 0315 AC IV Dose Instructions: (1)Heparin Sodium (Porcine): PER HIGH DOSE HEPARIN SLIDING SCALE Orders Procedure Date/time Status PTT 11/24 040 Complete PT/INR 11/24 040 Complete COMPREHENSIVE METABOLIC PANEL 11/25 399 Complete COMPLETE BLOOD COUNT 11/25 399 Complete RT EKG ALERT - NO CHARGE 11/23 0808 Active THER PROC GAIT TRAIN EA 15 MIN 11/23 UNK Complete BUS AIDE CONSULT 11/23 UNK Active ELECTROCARDIOGRAM 11/23 UNK Active Problems Prob/AP Current Problems 1. PE (pulmonary thromboembolism) 2. Pulmonary infarction 3. Bilateral deep vein thromboses 4. Atrial fibrillation with RVR 5. Solitary pulmonary nodule 6. Hilar lymphadenopathy 7. Pleural effusion 8. Fever 9. UTI (urinary tract infection) Plan Plans Additional Comments dc heparin gtt will see prn she will get Pulm physician in [place] for w/u rx >4weeks, then pet scan and consider TIERNEY spn biopsy <Electronically signed by WILLIAM FLORES D.O.> 11/24/17 0646 WILLIAM FLORES D.O. << Signature on File>> Reported By: WILLIAM FLORES D.O. Signed By: WILLIAM FLORES D.O. Tests performed at: [address] [id number] CBC Collected: 11/24/2017 Status: F Source: [facility] 5:25 AM HOSPITAL REPOSITORY TYPE CODE TESTS RESULT OUT OF RANGE REFERENCE UNITS LAB L200.0100 4.5-10.0 x10(3) High WBC 11.8 LAB L200.0200 3.30-5.00 x10(6) Low RBC 3.24 LAB L200.0210 12.0-16.0 g/dL Low HGB 9.6 LAB L200.0220 36.0-48.0 % Low HCT 28.4 LAB L200.0230 80.0-99.0 fl Normal MCV 87.8 LAB L200.0240 28.5-32.9 pg Normal MCH 29.5 LAB L200.0250 33.0-36.0 g/dL Normal MCHC 33.6 LAB L200.0260 12.5-15.7 % Normal RDW 14.5 LAB L200.0270 150-450 X10(3) Normal PLT 427 LAB L200.0290 7.5-9.5 fl Normal MPV 8.5 LAB L200.0300 45.0-73.0 % High NEUT% 92.3 LAB L200.0310 16.0-48.0 % Low LYMPH% 5.1 LAB L200.0320 4.3-11.2 % Low MONO% 2.4 LAB L200.0330 0.5-4.9 % Low EOS% 0.1 LAB L200.0340 0.0-1.0 % Normal BASO% 0.1 LAB L200.0350 1.40-6.50 x10(3) High NEUT# 10.90 LAB L200.0360 1.00-3.50 x10(3) Low LYMPH# 0.60 LAB L200.0370 0.30-0.80 x10(3) Normal MONO# 0.30 LAB L200.0380 0.00-0.54 x10(3) Normal EOS# 0.00 LAB L200.0390 0.00-0.10 x10(3) Normal BASO# 0.00 Performed By: #### L200.0010 #### [facility] [address] [place] [id number] PT Collected: 11/24/2017 Status: F Source: [facility] 5:25 AM HOSPITAL REPOSITORY TYPE CODE TESTS RESULT OUT OF REFERENCE UNITS RANGE LAB L200.1612 9.4-12.5 secs High PROTIME 58.2 LAB L200.1622 High alert INR 5.1 Result Comment: Verified by Repeat Testing COUMADIN PROTOCOLS INR values are generated for use in patients on coumadin. INR values stabilize 7 days after the start of coumadin or changes in coumadin dosage. The usual TARGET/INR range is: INDICATION INR RANGE Prophylaxis/treatment of: Venous Thrombosis, Pulmonary Embolism 2.0-3.0 Prevention of systemic embolism from: Tissue heart valves 2.0-3.0 Acute myocardial infarction (to prevent systemic embolism) 2.0-3.0 AMI (to prevent recurrent CO) 2.5-3.5 Valvular heart disease 2.0-3.0 Atrial fibrillation 2.0-3.0 Mechanical prosthetic valves (high risk) 2.5-3.5 Bileaflet mechanical valve in aortic position 2.0-3.0 Presence of Lupus Anticoagulant or Antiphospholipid Antibodies 2.5-3.5 PANIC VALUE: GREATER THAN OR EQUAL TO 4.5 Performed By: #### L200.1602, L200.1642 #### [facility] [address] [place] [id number] PTT Collected: 11/24/2017 Status: F Source: [facility] 5:25 AM HOSPITAL REPOSITORY TYPE CODE TESTS RESULT OUT OF RANGE REFERENCE UNITS LAB L200.1642 25.1-36.5 secs High PTT 70.3 Result Comment: Heparin Protocol Therapeutic Range = 54.0-90.0 secs Performed By: #### L200.1602, L200.1642 #### [facility] [address] [place] [id number] CMP Collected: 11/24/2017 Status: F Source: [facility] 5:25 AM HOSPITAL REPOSITORY TYPE CODE TESTS RESULT OUT OF RANGE REFERENCE UNITS LAB L100.0060 82-115 mg/dL High GLUCOSE 166 LAB L100.0110 8-23 mg/dL BUN Normal 12 LAB L100.0131 0.50-0.90 mg/dL Normal CREATININE 0.83 LAB L100.0140 8.8-10.2 mg/dL Low CALCIUM 8.5 LAB L100.0150 135-145 mmol/L SODIUM Normal 139 LAB L100.0160 3.5-5.0 mmol/L Normal POTASSIUM 3.7 LAB L100.0170 98-107 mmol/L CHLORIDE Normal 102 LAB L100.0180 22-29 mmol/L TCO2 Normal 23 LAB L100.0185 15-22 mmol/L ANION Normal GAP 17.7 LAB L100.0200 6.4-8.3 g/dL Low TOTAL PROTEIN 5.5 LAB L100.0210 3.5-5.2 g/dL Low ALBUMIN 2.3 LAB L100.0220 0.2-1.2 mg/dL TOTAL Normal BILIRUBIN <0.2 LAB L100.0240 5-32 U/L AST Normal 17 LAB L100.0250 5-33 U/L ALT Normal 9 LAB L100.0260 35-105 U/L ALK. Normal PHOS 64 LAB L100.0262 1.5-4.5 g/dL Normal GLOBULIN,CALC 3.2 LAB L100.0264 1.1-2.5 Low A:G RATIO 0.71 LAB L100.0274 eGFR Normal nonAFR Antolin > 60 ml/Min/1.73m 2 LAB L100.0275 eGFR if Normal AFR ANTOLIN > 60 ml/min/1.73m 2 Result Comment: eGFR >= 60 Indicates normal kidney function. * eGFR IS AN ESTIMATE * (AFR ANTOLIN = ) (non-AFR AM = NON-) MDRD calculation used in the eGFR should not be used to dose medications. For further limitations of the eGFR please refer to the Physician Website or the National Kidney Disease Education Program website (www.nkdep.nih.gov). Performed By: #### L100.0005 #### [facility] - [facility] [address] [place] [address] PROGRESS Observed: 11/23/2017 Status: COMPLETED Source: [place] 10:15 AM [facility] REPOSITORY HNO ID: [id number] Author: Sudhakar Ramirez Service: General Internal Medicine Author Type: Physician Type: Progress Notes Filed: 03/15/2018 7:03 PM Note Text: [place] [address] PROGRESS NOTES Patient: SG VELASCOSUDHAKAR Sheriff M.D. [id number] F Status: ADM IN [facility] 2222-A Report Date AND Time: 11/23/17 1015 Subjective * Please Note: Patient cc of mild SOB on exertion. Denies chest pain, palpitation, dizziness, nausea or vomiting. Review of Systems Constitutional Body Aches, Malaise/Fatigue. Denies: Anxiety, Pain, Chills, Fever, Weakness. Eyes Denies: Diplopia, Blurred Vision. ENT Denies: Mouth Pain, Throat Pain. Cardiovascular Cardiomyopathy, Dyspnea on exertion. Denies: Angina, Arrhythmia, CHF, Dizziness, Orthopnea, Palpitations. Pulmonary Short of Breath. Denies: Cough, Wheezing. Gastrointestinal Denies: Nausea, Vomiting, Abdominal Pain. Genitourinary Denies: Dysuria. Musculoskeletal Denies: Ambulatory Dysfunction. Neurological Denies: Ataxia, Vertigo. Psych/Social Issues Denies: Anxiety, Depression. Endocrine Diabetes. Hemo/Lymph Anemia. All Other Systems Other systems reviewed and are negative. Objective Focused Exam Performed General Appearance Alert, Oriented X3, Cooperative HEENT Atraumatic, PERRLA, EOMI Lungs Clear to Auscultation Neck Supple, No JVD Cardiovascular Irregular Rhythm Abdomen Normal Bowel Sounds, Soft, No Tenderness Extremities No Edema Skin Rash Neurological Cranial Nerves 2-12 NL, Intact/non-focal Physical Therapy Ambulated Nutrition PO Reviewed - Daily Reviewed Information Medications, Progress Notes, Labs Labs/Vitals/Meds/Orders Coagulation Range/Units 11/23 11/22 0419 1040 Coagulation PT 9.4 - 12.5 secs 26.3 H INR 2.3 APTT 25.1 - 36.5 secs 53.4 H 89.7 H Hematology Range/Units 11/23 0419 Hematology WBC 4.5 - 10.0 x10(3) 9.1 RBC 3.30 - 5.00 x10(6) 3.19 L Hgb 12.0 - 16.0 g/dL 9.3 L Hct 36.0 - 48.0 % 28.1 L MCV 80.0 - 99.0 fl 88.2 MCH 28.5 - 32.9 pg 29.3 MCHC 33.0 - 36.0 g/dL 33.2 RDW 12.5 - 15.7 % 14.4 Plt Count 150 - 450 X10(3) 374 MPV 7.5 - 9.5 fl 9.0 Neut % (Auto) 45.0 - 73.0 % 82.2 H Lymph % (Auto) 16.0 - 48.0 % 7.4 L Burleigh % (Auto) 4.3 - 11.2 % 7.7 Eos % (Auto) 0.5 - 4.9 % 2.5 Baso % (Auto) 0.0 - 1.0 % 0.2 Neut # (Auto) 1.40 - 6.50 x10(3) 7.50 H Lymph # (Auto) 1.00 - 3.50 x10(3) 0.70 L Burleigh # (Auto) 0.30 - 0.80 x10(3) 0.70 Eos # (Auto) 0.00 - 0.54 x10(3) 0.20 Baso # (Auto) 0.00 - 0.10 x10(3) 0.00 Microbiology Date/Time Procedure - Status Source Growth 11/20 1452 Fungal Culture - RES PLEURAL FL 11/20 1452 Fungal Smear - RES PLEURAL FL 11/20 1452 AFB Plated Culture - RES PLEURAL FL 11/20 1452 AFB Fluorescent Stain - RES PLEURAL FL 11/20 UNK Body Fluid Culture - RES PLEURAL FL NO GROWTH 11/20 UNK Gram Stain - RES PLEURAL FL 11/19 2034 Blood Culture - RES BLOOD 11/20 2031 Urine Culture - COMP URINE ESCHERICHIA COLI Vital Signs Date Time Temp Pulse Resp B/P B/P Pulse O2 O2 Flow FiO2 Mean Ox Delivery Rate 11/23 1019 11/23 0856 100.5 11/23 0855 95 142/68 11/23 0855 95 142/68 11/23 0855 95 142/68 11/23 0645 11/23 0645 11/23 0645 11/23 0224 11/23 0000 101.4 90 22 14/77 94 11/22 2230 11/22 2054 90 138/83 11/22 1621 97.2 85 19 153/90 96 11/22 1215 98.2 72 24 140/81 98 Nasal 2 Cannula Intake AND Output 11/23 0700 11/22 2300 11/22 1500 Intake Total 220 382 486 Output Total 200 Balance 220 382 286 Current Medications Sig/Hue Start time Last Medication Dose Route Stop Time Status Admin Sotalol HCl 40 MG BID 11/23 09 AC 11/23 PO 0855 Furosemide 20 MG ONCE ONE 11/22 2029 DC 11/22 IV 11/22 Diphenhydramine HCl 25 MG NOW STA 11/22 2024 DC 11/22 IV 11/22 Diphenhydramine HCl 25 MG Q6HPRN PRN 11/22 1000 AC 11/23 PO 0114 Warfarin Sodium 7.5 MG QDAY17 11/21 1700 I 11/22 PO 1627 Ertapenem 1 GM Q24H 11/21 1300 DC 11/22 Sodium Chloride 100 ML IV 1210 Hydrocodone Bitart/ 1 TAB Q4HPRN PRN 11/20 1700 AC 11/23 Acetaminophen PO 0253 Meperidine HCl 25 MG Q2HPRN PRN 11/20 1700 AC 11/20 IV 2342 Ondansetron HCl 4 MG Q8HPRN PRN 11/20 1700 AC IV Losartan Potassium 100 MG QDAY 11/20 09 AC 11/23 PO 0855 Metoprolol Tartrate 50 MG BID 11/20 09 AC 11/23 PO 0855 Pantoprazole Sodium 40 MG QDAY 11/20 899 AC 11/23 PO 0855 Raloxifene HCl 60 MG QDAY 11/20 09 AC 11/23 PO 0854 Levothyroxine Sodium 0.15 MG QDAY@0630 11/20 0630 AC 11/23 PO 0555 Heparin Sodium See Dose PRN PRN 11/20 0330 AC 11/21 (Porcine) Insts (1) IV 1734 Heparin Sodium/ 500 ML PROTOCOL 11/20 0330 I 11/22 Dextrose IV 1629 Acetaminophen 650 MG Q6HPRN PRN 11/20 0315 AC 11/23 PO 0856 Albuterol/Ipratropium 3 ML Q4HPRN PRN 11/20 0315 AC 11/23 IH 1018 Ondansetron HCl 4 MG Q4HPRN PRN 11/20 0315 AC IV Dose Instructions: (1)Heparin Sodium (Porcine): PER HIGH DOSE HEPARIN SLIDING SCALE Orders Procedure Date/time Status PT/INR 11/24 0400 Active COMPREHENSIVE METABOLIC PANEL 11/24 0400 Active COMPLETE BLOOD COUNT 11/24 0400 Active RT EKG ALERT - NO CHARGE 11/23 0808 Active RT: Assist/Misc 11/23 0439 Active RT EKG ALERT - NO CHARGE 11/23 0408 Active PTT 11/23 040 Complete PT/INR 11/24 399 Complete COMPLETE BLOOD COUNT 11/24 399 Complete ELECTROCARDIOGRAM 11/23 UNK Active PT: Initial Note Version 1 11/22 1313 Active PT EVALUATION: MOD COMPLEXITY 11/22 UNK Complete PT EVALUATION: HIGH COMPLEXITY 11/22 UNK Complete THER PROC GAIT TRAIN EA 15 MIN 11/22 UNK Complete Problems Problems Current Problems 1. Hypertension Assessment/Plan Well controlled On Anti HTN 2. Hypothyroid Assessment/Plan On medications 3. Anemia Assessment/Plan Stable Continue observation 4. Lung mass Assessment/Plan Out patient follow up with Pulmonary 5. PE (pulmonary thromboembolism) Assessment/Plan Patient is on Heparin and Warfarin 6. Bilateral deep vein thromboses Assessment/Plan Patient is on Anticoagulant 7. Pleural effusion Assessment/Plan S/P right thoracocentesis CXR -much improved Pulmonary on board 8. UTI (urinary tract infection) Assessment/Plan On Antibiotics 9. PAF (paroxysmal atrial fibrillation) Assessment/Plan On Medication. now rate controlled Cardiology on board Recent Orders My Orders (without Meds) Procedure Date/time Status PT/INR 11/25 399 Active COMPREHENSIVE METABOLIC PANEL 11/25 399 Active COMPLETE BLOOD COUNT 11/25 399 Active BUS AIDE CONSULT 11/23 UNK Active Plan Plans Activity Out of Bed, Increase Ambulation Diet Continue Current Medications/IV Plans Modify Medications Diagnostics Labs Ordered Condition Improving/Stable Time Spent 35 mints Quality DVT Prophylaxis addressed <Electronically signed by SUDHAKAR RAMIREZ M.D.> 11/23/17 1428 SUDHAKAR RAMIREZ M.D. << Signature on File>> Reported By: SUDHAKAR RAMIREZ M.D. Signed By: SUDHAKAR RAMIREZ M.D. Tests performed at: [address] [address] PROGRESS Observed: 11/23/2017 Status: COMPLETED Source: [place] 8:03 AM [facility] REPOSITORY HNO ID: [id number] Author: Yanet Palm Service: (none) Author Type: Nurse Practitioner Type: Progress Notes Filed: 03/15/2018 7:02 PM Note Text: [facility] [place] [address] PROGRESS NOTES Patient: SG VELASCO STEPHANIE A C.N.P. [id number] [age] F Status: ADM IN [facility] 2222-A Report Date AND Time: 11/23/17802 YANET PALM 11/23/17802: Subjective * Please Note: All systems reviewed and all are negative except systems noted. 11/21/17 - Patient sitting upright in bed -- denies any c/o chest pain, discomfort, or palpitations. Discussed with RN -- still spiking fevers and ATB being changed for UTI. 11/23/17 - Patient resting supine in bed. C/o wheezing last night/early am. Feeling a little better at this time. Patient going down for CXR this am Review of Systems All Other Systems Other systems reviewed and are negative. Objective Focused Exam Performed General Appearance Alert, Cooperative, No Acute Distress HEENT Atraumatic, WNL Lungs Diminished Neck No JVD Cardiovascular Irregular Rhythm, Normal S1, S2, Murmur (holosystolic) Abdomen Soft, No Tenderness Extremities No Edema Skin No Significant Lesion Neurological Normal Speech, Intact/non-focal, Age Appropriate Psych/Mental Status Normal Affect, Normal Mood, Pleasant Nutrition PO Reviewed - Daily Reviewed Information Medications, Progress Notes, Telemetry, EKG, Vitals Problems Problems Current Problems 1. PAF (paroxysmal atrial fibrillation) Assessment/Plan Converted to NSR - reviewed strips from 11/22 and this am -- in NSR. EKG this am, also showing NSR. Evaluated patient and on exam, irregular - reviewed telemetry and she was in afib. Will continue with current dose of metoprolol and add sotalol 40mg BID. Repeat EKG in the am. Continues with heparin/coumadin for anticoagulation -- INR therapeutic 2.3. 2. PE (pulmonary thromboembolism) Assessment/Plan Multiple acute right sided pulmonary emboli. Right lower lobe consolidation may reflect pulmonary infarct given emboli. Small to moderate right pleural effusion. A 2.4 cm left upper lobe mass and mediastinal and hilar adenopathy....currently asymptomatic. Continues with heparin drip and coumadin for anticoagulation. IVC filter placed d/t DVT and need in the future to hold anticoagulation for possible lung bx. 3. Abnormal CT of the chest Assessment/Plan Unchanged - multiple acute right sided pulmonary emboli. Right lower lobe consolidation may reflect pulmonary infarct given emboli. Small to moderate right pleural effusion. A 2.4 cm left upper lobe mass and mediastinal and hilar adenopathy. Reviewed pulm note and patient will need outpatient PET scan and possible bx 4. Hypertension Assessment/Plan Controlled 5. Hypothyroid Assessment/Plan Continues with synthroid 6. Anemia Assessment/Plan Stable, Hgb 9.3 7. Fever Plan Plans Activity Continue Current Diet Continue Current Nursing See orders Medications/IV Plans Modify Medications Condition No Change/No Better ZAFAR COOK D.O. 11/23/17 1653: Plan Plans Additional Comments now sinus keep on momntor for 48 hours <Electronically signed by YANET PALM C.N.P.> 11/23/17 0810 * <Electronically signed by ZAFAR COOK D.O.> 11/24/17 0620 YANET PALM C.N.P., WAYNE D D.O. << Signature on File>> Reported By: YANET PALM C.N.P. Signed By: ZAFAR COOK D.O. Tests performed at: [place] [address] [place], [place] [address] PROGRESS Observed: 11/23/2017 Status: COMPLETED Source: [place] 6:55 AM [facility] REPOSITORY [facility] ID: [id number] Author: William Flores Service: (none) Author Type: Physician Type: Progress Notes Filed: 03/15/2018 7:02 PM Note Text: [place] [address] PULMONARY/CRITICAL CARE PROGRESS NOTES Patient: GESSELSG WILLIAM V D.O. [id number] [age] F Status: ADM IN [facility] 2222-A Report Date AND Time: 11/23/17 0655 Subjective * Please Note: no specific complaints, pleasant no sob poc outlined All systems reviewed and all are negative except systems noted. Review of Systems Constitutional Denies: Anxiety, Body Aches, Pain, Chills, Fever, Weakness, Malaise/Fatigue, Hypersomnolence , Difficulty Sleeping, Night Sweats, Unexplained Weight Loss, General Health is:. Eyes Denies: Diplopia, Glaucoma, Photophobia, Change in Visual Acuity, Blurred Vision. ENT Denies: Ear Discharge/Wax, Chronic Ear Infections, Tinnitus, Hearing Loss, Vertigo. Cardiovascular Denies: Angina, Arrhythmia, CHF, Cardiomyopathy, Claudication, Cyanosis, Dizziness, DVT, Dyspnea on exertion, Edema, Hemoptysis, Night Sweats, Orthopnea, Jaw Pain, Palpitations, PVD , Phlebitis, Poor Exercise Tolerance, Rheumatic Fever, Shortness of Breath, Syncope, Tachycardia. Pulmonary Denies: Asbestos Exposure, Asthma, Cough, Hemoptysis, Hx of Pulmonary Embolism, Hypersomnolence, Orthopnea, Pleuritic Chest Pain, PND, Silcosis, Poor Sleep Quality, Snoring , Sputum Production, Tuberculosis, Wheezing, Pneumoconiosis. Gastrointestinal Denies: Constipation, Diarrhea, Diverticulosis, Dysphagia, GERD, Hematemesis, Hematochezia, Hepatitis, Jaundice, Melena, Peptic Ulcer Disease. Genitourinary Denies: Dysuria, Incontinence, Hematuria, Kidney Stones, Frequent UTI's. Musculoskeletal Denies: Ambulatory Dysfunction, Arthralgias, Intermittent Claudication, Myalgia, Paralysis, Paresthesia, Tremors, Weakness. Skin Denies: Alopecia, Ecchymosis, Eczema, Lesions, Masses, Petechiae, Pruritis, Purpura, Rashes, Varicose Veins. Breast Denies: Discharge, Masses, Pain. Neurological Denies: Ambulatory Dysfunction, Ataxia, CVA, Dysphagia, Epilepsy, Constant Headaches, Head Injury, Memory Loss, Paralysis, Paresthesia, Change in Speech, Syncope, TIA, Vertigo. Psych/Social Issues Denies: Alcoholism, Anxiety, Depression, Hallucinations, Homicidal Thoughts, Memory Loss, Paranoia, Personality Change, Psychosis, Schizophrenia, Suicidal Thoughts. Endocrine Denies: Diabetes, Polyphagia, Polyuria, Thyroid Disease. Hemo/Lymph Denies: Anemia, Excessive Bleeding, Blood/Clotting Disorder, Blood Transfusions, Lymphadenopathy, Radiation Treatment. Allergy/Immuno Denies: HIV, Recurrent Infections, IVDA, UTD on Immunizations. Objective Focused Exam Performed General Appearance Alert, Cooperative, Appears Stated Age, Mild Distress, Well developed Well hydrated Well nourished HEENT Atraumatic, PERRLA, WNL, Mucous membranes dry, External ears WNL Head and Face are normal on inspection Inferior turbinates are normal without hypertrophy Mallampati Score: Class3 Nasal mucosa is pink and moist No oral lesions or candidiasis Oropharynx appears normal Septum is midline Symmetric facies Tongue appears normal Lung Diminished, Crackles, AP diameter is unremarkable Chest is normal to inspection and palpation No bronchial breath sounds or pectoriloquy No dullness to percussion or egophony No extraneous sounds, wheeze, rale, rhonchi, rub No laryngeal stridor No use of accessory muscle noted Percussion is resonant and equal Respiratory rate is normal Voice resonance is clear Neck Supple (and symmetric), No JVD, No Thryomegaly, +2 Carotid Pulse wo Bruit (and equal bilaterally), No Lymphadopathy, Trachea midline Cardiovascular Irregular Rhythm, Normal S1, S2, Murmur, Good capillary refill, Normal Pulses, No clicks, gallop or rub Abdomen Normal Bowel Sounds (no bruits), No Tenderness (over the abdomen on percussion), No Hepatospenomegaly, No Masses, Obese, No bruit No femoral bruits No inguinal adenopathy No masses No pulsatile mass Extremities No Cyanosis, Edema, Normal Pulses, Capillary refill is normal Lower Extremities: Full ROM bilaterally Lower Extremities: Normal muscle tone bilaterally No LV or RV heave or cyanosis No clubbing No gross pulse deficits Upper Extremities: Full ROM bilaterally Upper Extremities: Normal muscle tone bilaterally Skin No Rashes, No Breakdown, No Significant Lesion, No Ulcers, No active synovitis Skin warm and dry Neurological Normal Speech, Normal Tone, Cranial Nerves 2-12 NL, Reflexes 2+, Intact/non-focal, Achilles and patellar DTR's are brisk and symmetrical Coordination is normal Cranial nerves are grossly intact Good mobility of all extremities Psych/Mental Status Pleasant, Flat Affect, Confused Lymph No palpable or visible regional lymphadenopathy Breast deferred Normal for Patient, Salgado for output measure, Salgado for urinary ret. Endocrine WNL Physical Therapy Ambulated Nutrition PO Stool Normal Other Physical Findings dvt's noted echo noted right effusion is uncomplicated exudate cxr is pending today inr=2.3 Reviewed - Daily Reviewed: Medications, Nurse Notes, Telemetry, DVT/Prophylaxis, Labs, Vitals, Micro, Diagnostics Labs/Vitals/Meds/Orders Coagulation Range/Units 11/23 11/22 0419 1040 Coagulation PT 9.4 - 12.5 secs 26.3 H INR 2.3 APTT 25.1 - 36.5 secs 53.4 H 89.7 H Hematology Range/Units 11/23 0419 Hematology WBC 4.5 - 10.0 x10(3) 9.1 RBC 3.30 - 5.00 x10(6) 3.19 L Hgb 12.0 - 16.0 g/dL 9.3 L Hct 36.0 - 48.0 % 28.1 L MCV 80.0 - 99.0 fl 88.2 MCH 28.5 - 32.9 pg 29.3 MCHC 33.0 - 36.0 g/dL 33.2 RDW 12.5 - 15.7 % 14.4 Plt Count 150 - 450 X10(3) 374 MPV 7.5 - 9.5 fl 9.0 Neut % (Auto) 45.0 - 73.0 % 82.2 H Lymph % (Auto) 16.0 - 48.0 % 7.4 L Burleigh % (Auto) 4.3 - 11.2 % 7.7 Eos % (Auto) 0.5 - 4.9 % 2.5 Baso % (Auto) 0.0 - 1.0 % 0.2 Neut # (Auto) 1.40 - 6.50 x10(3) 7.50 H Lymph # (Auto) 1.00 - 3.50 x10(3) 0.70 L Burleigh # (Auto) 0.30 - 0.80 x10(3) 0.70 Eos # (Auto) 0.00 - 0.54 x10(3) 0.20 Baso # (Auto) 0.00 - 0.10 x10(3) 0.00 Microbiology Date/Time Procedure - Status Source Growth 11/20 1453 Fungal Culture - RES PLEURAL FL 11/20 1453 Fungal Smear - RES PLEURAL FL 11/20 1453 AFB Plated Culture - RES PLEURAL FL 11/20 145 AFB Fluorescent Stain - RES PLEURAL FL 11/20 UNK Body Fluid Culture - RES PLEURAL FL NO GROWTH 11/20 UNK Gram Stain - RES PLEURAL FL 11/19 2034 Blood Culture - RES BLOOD 11/20 2031 Urine Culture - COMP URINE ESCHERICHIA COLI Vital Signs Date Time Temp Pulse Resp B/P B/P Pulse O2 O2 Flow FiO2 Mean Ox Delivery Rate 11/23 0645 RA 11/23 0645 RA 11/23 0645 RA 11/23 0224 RA 11/23 0000 101.4 90 22 14/77 94 11/22 2230 RA 11/22 2053 90 138/83 11/22 2025 RA 11/22 1621 97.2 85 19 153/90 96 11/22 1215 98.2 72 24 140/81 98 Nasal 2 Cannula 11/22 0932 95 117/85 11/22 0932 95 117/85 11/22 0921 98.1 95 28 117/85 96 Nasal 2 Cannula 11/22 0702 RA 11/22 07 RA 11/22 07 RA Intake AND Output 11/23 0700 11/22 2300 11/22 1500 Intake Total 220 382 486 Output Total 200 Balance 220 382 286 Current Medications Sig/Hue Start time Last Medication Dose Route Stop Time Status Admin Furosemide 20 MG ONCE ONE 11/22 2030 DC 11/22 IV 11/22 Diphenhydramine HCl 25 MG NOW STA 11/22 2024 DC 11/22 IV 11/22 Diphenhydramine HCl 25 MG Q6HPRN PRN 11/22 1000 AC 11/23 PO 0114 Warfarin Sodium 7.5 MG QDAY17 11/21 1700 I 11/22 PO 1627 Ertapenem 1 GM Q24H 11/21 1300 I 11/22 Sodium Chloride 100 ML IV 1210 Hydrocodone Bitart/ 1 TAB Q4HPRN PRN 11/20 1700 AC 11/23 Acetaminophen PO 0253 Meperidine HCl 25 MG Q2HPRN PRN 11/20 1700 AC 11/20 IV 2342 Ondansetron HCl 4 MG Q8HPRN PRN 11/20 1700 AC IV Losartan Potassium 100 MG QDAY 11/20 0900 AC 11/22 PO 0932 Metoprolol Tartrate 50 MG BID 11/20 899 AC 11/22 PO 2053 Pantoprazole Sodium 40 MG QDAY 11/20 899 AC 11/22 PO 931 Raloxifene HCl 60 MG QDAY 11/20 899 AC 11/22 PO 931 Levothyroxine Sodium 0.15 MG QDAY@0630 11/20 0630 AC 11/23 PO 0555 Heparin Sodium See Dose PRN PRN 11/20 0330 AC 11/21 (Porcine) Insts (1) IV 1734 Heparin Sodium/ 500 ML PROTOCOL 11/20 033 I 11/22 Dextrose IV 1629 Acetaminophen 650 MG Q6HPRN PRN 11/20 0315 AC 11/23 PO 0114 Albuterol/Ipratropium 3 ML Q4HPRN PRN 11/20 0315 AC 11/23 IH 0644 Ondansetron HCl 4 MG Q4HPRN PRN 11/20 0315 AC IV Dose Instructions: (1)Heparin Sodium (Porcine): PER HIGH DOSE HEPARIN SLIDING SCALE Orders Procedure Date/time Status RT: Assist/Misc 11/23 0439 Active RT EKG ALERT - NO CHARGE 11/23 0408 Active PTT 11/23 0400 Complete PT/INR 11/23 0400 Complete COMPLETE BLOOD COUNT 11/23 0400 Complete PT: Initial Note Version 1 11/22 1313 Active Insert/Reassess Salgado 11/22 0904 Active PT EVALUATION: MOD COMPLEXITY 11/22 UNK Complete PT EVALUATION: HIGH COMPLEXITY 11/22 UNK Complete THER PROC GAIT TRAIN EA 15 MIN 11/22 UNK Complete Problems Prob/AP Current Problems 1. PE (pulmonary thromboembolism) 2. Pulmonary infarction 3. Bilateral deep vein thromboses 4. Atrial fibrillation with RVR 5. Solitary pulmonary nodule 6. Hilar lymphadenopathy 7. Pleural effusion 8. Fever 9. UTI (urinary tract infection) Plan Plans Activity Increase Ambulation, OOB to Chair Diet Advance to Regular Nursing See orders Medications/IV Plans Continue Antibiotics, Modify Medications Diagnostics Chest X-Ray Ordered, Discussed Case Condition No Change/No Better, New Problem, Inadequate Response Disposition Stepdown Time Spent 25min. Additional Comments heparin gtt/coumadin overlap rx >4weeks, then pet scan and consider TIERNEY spn biopsy <Electronically signed by WILLIAM FLORES D.O.> 11/23/17 0657 WILLIAM FLORES D.O. << Signature on File>> Reported By: WILLIAM FLORES D.O. Signed By: WILLIAM FLORES D.O. Tests performed at: [address] [address] CBC Collected: 11/23/2017 Status: F Source: [facility] 4:19 AM HOSPITAL REPOSITORY TYPE CODE TESTS RESULT OUT OF RANGE REFERENCE UNITS LAB L200.0100 4.5-10.0 x10(3) Normal WBC 9.1 LAB L200.0200 3.30-5.00 x10(6) Low RBC 3.19 LAB L200.0210 12.0-16.0 g/dL Low HGB 9.3 LAB L200.0220 36.0-48.0 % Low HCT 28.1 LAB L200.0230 80.0-99.0 fl Normal MCV 88.2 LAB L200.0240 28.5-32.9 pg Normal MCH 29.3 LAB L200.0250 33.0-36.0 g/dL Normal MCHC 33.2 LAB L200.0260 12.5-15.7 % Normal RDW 14.4 LAB L200.0270 150-450 X10(3) Normal PLT 374 LAB L200.0290 7.5-9.5 fl Normal MPV 9.0 LAB L200.0300 45.0-73.0 % High NEUT% 82.2 LAB L200.0310 16.0-48.0 % Low LYMPH% 7.4 LAB L200.0320 4.3-11.2 % Normal MONO% 7.7 LAB L200.0330 0.5-4.9 % Normal EOS% 2.5 LAB L200.0340 0.0-1.0 % Normal BASO% 0.2 LAB L200.0350 1.40-6.50 x10(3) High NEUT# 7.50 LAB L200.0360 1.00-3.50 x10(3) Low LYMPH# 0.70 LAB L200.0370 0.30-0.80 x10(3) Normal MONO# 0.70 LAB L200.0380 0.00-0.54 x10(3) Normal EOS# 0.20 LAB L200.0390 0.00-0.10 x10(3) Normal BASO# 0.00 Performed By: #### L200.0010 #### [facility] - LABORATORY [address] [place] [address] PT Collected: 11/23/2017 Status: F Source: [facility] 4:19 AM HOSPITAL REPOSITORY TYPE CODE TESTS RESULT OUT OF RANGE REFERENCE UNITS LAB L200.1612 9.4-12.5 secs High PROTIME 26.3 LAB L200.1622 Normal INR 2.3 Result Comment: COUMADIN PROTOCOLS INR values are generated for use in patients on coumadin. INR values stabilize 7 days after the start of coumadin or changes in coumadin dosage. The usual TARGET/INR range is: INDICATION INR RANGE Prophylaxis/treatment of: Venous Thrombosis, Pulmonary Embolism 2.0-3.0 Prevention of systemic embolism from: Tissue heart valves 2.0-3.0 Acute myocardial infarction (to prevent systemic embolism) 2.0-3.0 AMI (to prevent recurrent CO) 2.5-3.5 Valvular heart disease 2.0-3.0 Atrial fibrillation 2.0-3.0 Mechanical prosthetic valves (high risk) 2.5-3.5 Bileaflet mechanical valve in aortic position 2.0-3.0 Presence of Lupus Anticoagulant or Antiphospholipid Antibodies 2.5-3.5 PANIC VALUE: GREATER THAN OR EQUAL TO 4.5 Performed By: #### L200.1602, L200.1642 #### [facility] - [facility]ATORY [address] [place] [address] PTT Collected: 11/23/2017 Status: F Source: [facility] 4:19 AM HOSPITAL REPOSITORY TYPE CODE TESTS RESULT OUT OF RANGE REFERENCE UNITS LAB L200.1642 25.1-36.5 secs High PTT 53.4 Result Comment: Heparin Protocol Therapeutic Range = 54.0-90.0 secs Performed By: #### L200.1602, L200.1642 #### [facility] - LABORATORY [address] [place] [address] CHEST (TWO VIEWS) Observed: 11/23/2017 Status: F Source: [facility] - CXR 4:00 AM HOSPITAL REPOSITORY [address] [address] Name: SG VELASCO Phys: WILLIAM FLORES D.O. : 35 Age: 82 Sex: F Acct: [id number] Loc: [facility] Exam Date: 11/23/17 Status: ADM IN Radiology No.: [id number] Unit Number: [id number] Exam # Type/Exam [id number] RAD / CHEST (TWO VIEWS) - CXR CHEST RADIOGRAPH, TWO VIEWS HISTORY: Pneumonia, shortness of breath COMPARISON: 11/20/17 FINDINGS: Improved aeration of the right lung base noted. Small effusion with adjacent atelectasis noted on the right. The cardiomediastinal shilloutte is stable. No pneumothorax. IMPRESSION: 1. slightly improved right lung base aeration. Professional interpretation provided by [facility], [place] on [facility]60. Thank you for this referral. <<Signature on File>> Reported By: ELLE CERDA M.D. Signed In [employer] By: ELLE CERDA M.D. << Signature on File>> Reported By: ELLE CERDA M.D. Signed By: ELLE CERDA M.D. Tests performed at: [address] [address] ELECTROCARDIOGRAM Observed: 11/23/2017 Status: F Source: [place] 12:00 AM [facility] [place] [address] HEALTH INFORMATION MANAGEMENT ELECTROCARDIOGRAM REPORT Patient: SG VELASCO Ordering: ROSA DENISE M.D. [id number] [age] F Exam Date: 11/23/17 Report #: [id number] Status: ADM IN [facility] 2-A SINUS RHYTHM WITH OCCASIONAL SUPRAVENTRICULAR PREMATURE COMPLEXES Nonspecific ST and T wave abnormalities PREVIOUS TRACIN11/19/17 20.03 Physician Nut Feeder: LISSETTE AGUDELO D.O. Ventricular Rate EK /min R-R Interval: 658 ms P Wave duration: 97 ms QRS duration: 84 ms P-R interval: 181 ms Q-T interval: 360 ms Q-T interval (corrected): 412 ms Q-T Dispersion: ms P wave axis: 61 deg QRS axis: -14 deg T axis: 32 deg Signed in [facility] 11/23/17 0608 LISSETTE AGUDELO D.O. cc: << Signature on File>> Reported By: LISSETTE AGUDELO D.O. Signed By: LISSETTE AGUDELO D.O. Tests performed at: [place] [address] ELECTROCARDIOGRAM Observed: 11/23/2017 Status: F Source: [place] 12:00 [place] [address] HEALTH INFORMATION MANAGEMENT ELECTROCARDIOGRAM REPORT Patient: SG VELASCO Ordering: YANET PALM C.N.P. [id number] [age] F Exam Date: 11/23/17 Report #: [id number] Status: ADM IN [place] [address]-A SINUS TACHYCARDIA WITH FREQUENT SUPRAVENTRICULAR PREMATURE COMPLEXES ABNORMAL RHYTHM ECG PREVIOUS TRACIN11/23/17 04.19 Physician Nut Feeder: ZAFAR COOK D.O. Ventricular Rate EK /min R-R Interval: 581 ms P Wave duration: 102 ms QRS duration: 80 ms P-R interval: 185 ms Q-T interval: 345 ms Q-T interval (corrected): 409 ms Q-T Dispersion: ms P wave axis: 48 deg QRS axis: -5 deg T axis: 19 deg Signed [facility] [facility]17 1120 ZAFAR COOK D.O. cc: << Signature on File>> Reported By: ZAFAR COOK D.O. Signed By: ZAFAR COOK D.O. Tests performed at: [address] [address] PROGRESS Observed: 11/22/2017 Status: COMPLETED Source: [place] 1:20 PM [facility] REPOSITORY HNO ID: [id number] Author: Zafar Cook Service: (none) Author Type: (none) Type: Progress Notes Filed: 03/15/2018 7:01 PM Note Text: [place] [address] PROGRESS NOTES Patient: SG VELASCO ZAFAR COOK D.O. [id number] [age] F Status: ADM IN ICU [id number] Report Date AND Time: 11/22/17 1320 Objective Focused Exam Performed General Appearance Alert, Cooperative, No Acute Distress HEENT Atraumatic, WNL Lungs Diminished Neck No JVD Cardiovascular Irregular Rhythm, Normal S1, S2, Murmur (holosystolic) Abdomen Soft, No Tenderness Extremities No Edema Skin No Significant Lesion Neurological Normal Speech, Intact/non-focal, Age Appropriate Psych/Mental Status Normal Affect, Normal Mood, Pleasant Salgado for output measure Nutrition PO Plan Plans Additional Comments echo stable exam better seems less dyspnea no change <Electronically signed by ZAFAR COOK D.O.> 11/22/17 1617 ZAFAR COOK D.O. << Signature on File>> Reported By: ZAFAR COOK D.O. Signed By: ZAFAR COOK D.O. Tests performed at: [address] [address] PROGRESS Observed: 11/22/2017 Status: COMPLETED Source: [place] 11:22 AM [facility] REPOSITORY HNO ID: [id number] Author: Avril Duque Service: (none) Author Type: Physician Type: Progress Notes Filed: 03/15/2018 7:01 PM Note Text: [facility] [place] [address] PROGRESS NOTES Patient: SG VELASCO AVRIL DUQUE M.D. [id number] [age] F Status: ADM IN ICU [id number] Report Date AND Time: 11/22/17 1122 Subjective * Please Note: doing better, noted body rash no chest pain or SOB, off O2 no signs of bleeding no abd pain All systems reviewed and all are negative except systems noted. Objective Focused Exam Performed General Appearance Alert, Oriented X3, Cooperative HEENT Atraumatic, PERRLA, EOMI Lungs Clear to Auscultation Neck Supple, No JVD Cardiovascular Irregular Rhythm Abdomen Normal Bowel Sounds, Soft, No Tenderness Extremities No Edema Skin Rash Neurological Cranial Nerves 2-12 NL, Intact/non-focal Reviewed - Daily Reviewed Information Medications, Progress Notes, Labs Labs/Vitals/Meds/Orders Coagulation Range/Units 11/22 11/22 11/22 11/21 1040 0459 0458 2324 Coagulation PT 9.4 - 12.5 secs 14.9 H INR 1.3 APTT 25.1 - 36.5 secs 89.7 H 85.2 H 199.9 cH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 because she was driving erratically. When they pulled her over they noticed that she was very confused, not behaving appropriately, so they did end up calling 9-1-1 and having her transported to the hospital. Medics state that she was febrile for them at 102. They state she is able to answer some questions appropriately, but not provide good history for the medics. The patient arrives here and she does not know where she is at. She thinks she is at her PCP's office, Dr. Weber. Even after I explained to her that she is at the hospital, she still continues to think she is at Dr. Weber's office. She knows it is 2018. She knows Luke Mays is the president. She cannot really give us much history as far as her medical history goes. She cannot tell us what medication she is on. In asking her questions, she denies any dizziness, any headaches. She cannot tell me what happened today. She does not remember the police pulling her over. She is accusing of everybody making things up. She states that she has no chest pain. No shortness of breath. No abdominal pains. Basically just denies any symptoms at all at this point. Her family did arrive shortly after when Dr. Estrella was actually in the room with the patient, and the family did inform that there is a history of some factor V clotting disorders in the family, and that multiple family members have had PEs and DVTs and strokes. That the patient was complaining of some leg pain the other day and was complaining of some shortness of breath the other day as well, even though she completely denies any of those complaints here at this time. The patient denies any history of any heart problems. She does take metoprolol, from what we can tell, with her medications. She does take that for hypertension. When we put her on the monitor here she did appear to be in Afib. There is no history of Afib that we are aware of or that family is aware of, but per family she did see her doctor on Monday who was suspicious that she might be having episodes of Afib. He went her to [facility] where they basically discharged her home without really doing any workup on her they basically said she was not in Afib at the time and did discharge her home without any further workup. ALLERGIES Patient has no known drug allergies. SOCIAL HISTORY She is single denies any drug, alcohol or tobacco use. PAST SURGICAL HISTORY Uncertain of her surgical history. PAST MEDICAL HISTORY Medically, she does have hypertension. She has a history of breast cancer, and she has hypothyroidism. MEDICATIONS She is on omeprazole. She is on Cozaar, Lopressor, Evista, and Synthroid are her medications. PHYSICAL EXAMINATION This is an 82-year-old female who is alert to herself. She is not alert to time and place. However, again is alert to the year, the president. Her vitals here today were 142/85, temperature of 102.4, pulse of 116, respirations of 18, 93% on room air. Her skin is warm, dry, slightly pale. Her head is atraumatic, normocephalic. Pupils are round, equal, reactive to light and accommodation. HEENT is unremarkable. Her neck is supple, nontender. No JVD noted. Her lungs are clear. Her respirations are nonlabored. No rhonchi, rales or wheezing. Heart rate and rhythm. She is tachycardic and irregular. No murmurs, rubs or gallops. No peripheral edema. Her abdomen is soft, nontender, nondistended. Bowel sounds x4. Her extremities are well perfused. She does have good range of motion and strength bilaterally and equally to all extremities. Neurological assessment is completely negative for any deficits. NIH score for her is zero. HOSPITAL COURSE HERE We did an EKG on her initially, which did come back showing atrial fib. I did a septic and cardiac workup on her lab guaman as well as a cath urine. Her CBC is relatively unremarkable. Her white count is 9.5, hemoglobin of 10.1, hematocrit of 30. Lactic acid was negative at 1.2. I did do a PT/INR on her because of concerns of possible PEs with her, wanted to just have that on record in case we need to use heparin on her later, that was within normal limits. Her BMP shows a glucose of 130. Her creatinine slightly elevated at 1.23. Calcium is 8.6 and her CO2 was 20. Cardiac enzymes here were completely unremarkable. Urinalysis, cath urine does show some trace lysed blood, negative nitrate, trace leuko esterase, 6 to 10 white blood cells, 1 to 3 red blood cells and +2 bacteria. She does look like she has a start of a urinary tract infection, so I did order her some Rocephin. Her blood pressure ended up actually dropping down into the 80s systolically shortly after she arrived here, so we did start bolusing her with fluid. We do have her back up into the 120s prior to her going down for her CAT scan, which we did order a CAT scan of her head and her chest. Her head CT was within normal limits. No acute findings. Her chest CT, however, did show multiple pulmonary emboli to the right lobe, also shows a right lower lobe pneumonia, and it is showing a 2.4 x 1.4 cm left upper lobe pulmonary mass which is suspicious for possible neoplasm which the patient does have a history of breast cancer, so this could potentially be metastatic cancer that is in question. With the pneumonia, in addition to the Rocephin, I did order her some Levaquin and starting her on some high dose weight-based heparin and spoke with Dr. Denise regarding getting patient admitted, and we will be admitting her to the ICU as a step- down patient due to shortage of just regular step-down beds. DIAGNOSES 1. Multiple right pulmonary emboli. 2. Right lower lobe pneumonia. 3. New onset Afib. 4. Altered mental status. 5. Fever. 6. UTI. The patient is in stable condition at this point. Family is at the bedside awaiting transfer to the floor. ADMIT <Electronically signed by BRIGIDA BRUCE> 11/23/17 1843 WINIFRED RUSH cc: WINIFRED RUSH << Signature on File>> Reported By: WINIFRED RUSH Signed By: WINIFRED RUSH Tests performed at: [address] [address] ED PROV NOTE Observed: 11/21/2017 Status: COMPLETED Source: [place] 3:40 PM [facility] [place] REPOSITORY O ID: [id number] Author: Vance Estrella Service: Emergency Medicine Author Type: Physician Type: ED Provider Notes Filed: 03/15/2018 6:59 PM Note Text: [place] [address] HEALTH INFORMATION MANAGEMENT EMERGENCY DEPARTMENT REPORT Patient: SG VELASCO VANCE ESTRELLA D.O. [id number] [age] F [facility] Date of Service: 11/19/17 CHIEF COMPLAINT/HISTORY OF PRESENT ILLNESS I am seeing the patient with CHITO Winifred Rush. The patient is an 82-year-old female who presented for altered mental status. The patient was out driving around, was ultimately pulled over by the police, in which the patient was not acting appropriate and brought to the emergency room. On arrival, the patient did have a fever and was showing signs of being in atrial fibrillation. PHYSICAL EXAMINATION The patient, on physical exam, had a normal neuro exam, was alert and oriented x3, had an NIH of zero, did have an irregularly irregular tachycardic rhythm with a positive systolic murmur. The patient did not have any lower extremity edema, ulcerations, skin breakdown. EMERGENCY DEPARTMENT COURSE The patient's family did arrive and identify the fact that the family has been factor V Leiden; however, the patient had never been evaluated. The patient at this time is being evaluated for PE and multiple other causes of the atrial fibrillation. The patient is going to be admitted to the hospital. The final diagnosis and admission disposition will be dictated by Winifred Rush. IMPRESSION <Electronically signed by VANCE ESTRELLA D.O.> 11/29/17 1216 VANCE ESTRELLA D.O. cc: VANCE ESTRELLA D.O. << Signature on File>> Reported By: VANCE ESTRELLA D.O. Signed By: VANCE ESTRELLA D.O. Tests performed at: [address] [address] EMERGENCY DEPARTMENT Observed: 11/21/2017 Status: F Source: [facility] 3:40 PM [facility] [place] [address] HEALTH INFORMATION MANAGEMENT EMERGENCY DEPARTMENT REPORT Patient: SG VELASCO VANCE ESTRELLA D.O. [id number] [age] F Status: DIS IN [facility] 2222-A Date of Service: 11/19/17 CHIEF COMPLAINT/HISTORY OF PRESENT ILLNESS I am seeing the patient with CHITO Winifred Rush. The patient is an 82-year-old female who presented for altered mental status. The patient was out driving around, was ultimately pulled over by the police, in which the patient was not acting appropriate and brought to the emergency room. On arrival, the patient did have a fever and was showing signs of being in atrial fibrillation. PHYSICAL EXAMINATION The patient, on physical exam, had a normal neuro exam, was alert and oriented x3, had an NIH of zero, did have an irregularly irregular tachycardic rhythm with a positive systolic murmur. The patient did not have any lower extremity edema, ulcerations, skin breakdown. EMERGENCY DEPARTMENT COURSE The patient's family did arrive and identify the fact that the family has been factor V Leiden; however, the patient had never been evaluated. The patient at this time is being evaluated for PE and multiple other causes of the atrial fibrillation. The patient is going to be admitted to the hospital. The final diagnosis and admission disposition will be dictated by Winifred Rush. IMPRESSION <Electronically signed by VANCE ESTRELLA D.O.> 11/29/17 1216 VANCE ESTRELLA D.O. cc: VANCE ESTRELLA D.O. << Signature on File>> Reported By: VANCE ESTRELLA D.O. Signed By: VANCE ESTRELLA D.O. Tests performed at: [address] [address] CONSULT Observed: 11/21/2017 Status: COMPLETED Source: [place] 12:51 PM [facility] REPOSITORY O ID: [id number] Author: Kymberly Lobato Service: (none) Author Type: Physician Type: Consults Filed: 03/15/2018 6:59 PM Note Text: [place] [address] HEALTH INFORMATION MANAGEMENT CONSULTATION Patient: PAULA VELASCOKYMBERLY GARCIA M.D. [id number] [age] F Status: DIS IN [facility] 2222-A DATE OF CONSULTATION 11/21/[address] Rosa Denise REASON FOR CONSULTATION Evaluation and management of patient with urinary tract infection with E. coli, ESBL positive HISTORY OF PRESENT ILLNESS This is a very pleasant 82 year-old white female who resides outside [place] with a past medical history of hypothyroidism, GERD, hypertension who was admitted on the evening of the 19 of November with acute onset of altered mental status and fever. She was found to have new onset atrial fibrillation and also found to have an acute pulmonary emboli on a CT scan of the chest. She did also have a right pleural effusion and underwent successful thoracentesis. Also during this hospitalization she underwent placement of IVC filter. She is currently alert, conversive, her vitals are stable. She does have a Salgado catheter in place. She did have fever initially when she presented to the hospital, current temperature is 99.7. She is otherwise hemodynamically stable. She denies any specific pain. No flank pain. Denies any gastrointestinal distress nor abdominal pain. PAST MEDICAL HISTORY Her past medical history is significant for GERD, hypertension, hypothyroidism. Now she has developed new onset atrial fibrillation from a thromboembolic event. ALLERGIES She has no known drug allergies. MEDICATIONS Her current medication list I reviewed, she is currently on imipenem. The rest of the other medications I reviewed. FAMILY HISTORY Noncontributory. SOCIAL HISTORY She lives alone with college students that rent part of her house. No tobacco or alcohol use. FAMILY HISTORY Noncontributory. PHYSICAL EXAMINATION On exam, her current temperature is 99.7, blood pressure 130/71, heart rate 94 beats per minute. Head and neck exam is unremarkable. Lungs are clear. Heart exam: S1, S2. Abdomen is soft, nontender. No skin lesions noted. Salgado catheter is in place. Her white count is 7.0, hemoglobin 10.4, platelet count 353,000, BUN of 13, creatinine 0.96, bicarb of 20. Chest x-ray personally reviewed shows a small right pleural effusion after thoracentesis. Microbiological data reviewed. IMPRESSION E. coli urinary tract infection, ESBL positive. PLAN At this point we will treat with ertapenem 1 gm IV q.24 h. Plan to remove the Salgado catheter tomorrow morning when she is mobilized. Thank you for giving me the opportunity to see this interesting patient in consultation. <Electronically signed by KYMBERLY LOBATO M.D.> 12/07/17 0834 KYMBERLY LOBATO M.D. cc: KYMBERLY LOBATO M.D.; ROSA DENISE M.D. << Signature on File>> Reported By: KYMBERLY LOBATO M.D. Signed By: KYMBERLY LOBATO M.D. Tests performed at: [place] [address] [place], [place] [address] CONSULTATION Observed: 11/21/2017 Status: F Source: [place] 12:51 PM [facility] [address] HEALTH INFORMATION MANAGEMENT CONSULTATION Patient: SG VELASCO KYMBERLY LOBATO M.D. [id number] [age] F Status: DIS IN [facility] 2222-A DATE OF CONSULTATION 11/21/[address] Rosa Denise REASON FOR CONSULTATION Evaluation and management of patient with urinary tract infection with E. coli, ESBL positive HISTORY OF PRESENT ILLNESS This is a very pleasant 82 year-old white female who resides outside [place] with a past medical history of hypothyroidism, GERD, hypertension who was admitted on the evening of the 19 of November with acute onset of altered mental status and fever. She was found to have new onset atrial fibrillation and also found to have an acute pulmonary emboli on a CT scan of the chest. She did also have a right pleural effusion and underwent successful thoracentesis. Also during this hospitalization she underwent placement of IVC filter. She is currently alert, conversive, her vitals are stable. She does have a Salgado catheter in place. She did have fever initially when she presented to the hospital, current temperature is 99.7. She is otherwise hemodynamically stable. She denies any specific pain. No flank pain. Denies any gastrointestinal distress nor abdominal pain. PAST MEDICAL HISTORY Her past medical history is significant for GERD, hypertension, hypothyroidism. Now she has developed new onset atrial fibrillation from a thromboembolic event. ALLERGIES She has no known drug allergies. MEDICATIONS Her current medication list I reviewed, she is currently on imipenem. The rest of the other medications I reviewed. FAMILY HISTORY Noncontributory. SOCIAL HISTORY She lives alone with college students that rent part of her house. No tobacco or alcohol use. FAMILY HISTORY Noncontributory. PHYSICAL EXAMINATION On exam, her current temperature is 99.7, blood pressure 130/71, heart rate 94 beats per minute. Head and neck exam is unremarkable. Lungs are clear. Heart exam: S1, S2. Abdomen is soft, nontender. No skin lesions noted. Salgado catheter is in place. Her white count is 7.0, hemoglobin 10.4, platelet count 353,000, BUN of 13, creatinine 0.96, bicarb of 20. Chest x-ray personally reviewed shows a small right pleural effusion after thoracentesis. Microbiological data reviewed. IMPRESSION E. coli urinary tract infection, ESBL positive. PLAN At this point we will treat with ertapenem 1 gm IV q.24 h. Plan to remove the Salgado catheter tomorrow morning when she is mobilized. Thank you for giving me the opportunity to see this interesting patient in consultation. <Electronically signed by KYMBERLY LOBATO M.D.> 12/07/17 0834 KYMBERLY LOBATO M.D. cc: KYMBERLY LOBATO M.D.; ROSA DENISE M.D. << Signature on File>> Reported By: KYMBERLY LOBATO M.D. Signed By: KYMBERLY LOBATO M.D. Tests performed at: [address] [address] PTT Collected: 11/21/2017 Status: F Source: [facility] 11:13 AM HOSPITAL REPOSITORY TYPE CODE TESTS RESULT OUT OF RANGE REFERENCE UNITS LAB L200.1642 25.1-36.5 secs High PTT 59.4 Result Comment: Heparin Protocol Therapeutic Range = 54.0-90.0 secs Performed By: #### L200.1642 #### [facility] [address] [place] [address] PROGRESS Observed: 11/21/2017 Status: COMPLETED Source: [place] 9:32 AM [facility] [place] REPOSITORY HNO ID: [id number] Author: Avril Duque Service: (none) Author Type: Physician Type: Progress Notes Filed: 03/15/2018 6:58 PM Note Text: [place] [address] PROGRESS NOTES Patient: SG VELASCO JIE M.D. [id number] [age] F Status: ADM IN ICU [id number] Report Date AND Time: 11/21/17 0932 See Addendum Subjective * Please Note: doing OK, no new complaints no chest pain or SOB, on NC O2 no signs of bleeding no abd pain All systems reviewed and all are negative except systems noted. Objective Focused Exam Performed General Appearance Alert, Oriented X3, Cooperative HEENT Atraumatic, PERRLA, EOMI Lungs Clear to Auscultation Neck Supple, No JVD Cardiovascular Irregular Rhythm Abdomen Normal Bowel Sounds, Soft, No Tenderness Extremities No Edema Skin No Rashes Neurological Cranial Nerves 2-12 NL, Intact/non-focal Reviewed - Daily Reviewed Information Medications, HANDP, Labs Labs/Vitals/Meds/Orders Coagulation Range/Units 11/21 11/20 11/20 11/20 0548 2249 1657 1319 Coagulation PT 9.4 - 12.5 secs 13.6 H 14.1 H INR 1.2 1.3 APTT 25.1 - 36.5 secs 96.3 H 106.7 H 27.3 Range/Units 11/20 1314 Coagulation APTT 25.1 - 36.5 secs 30.6 Hematology Range/Units 11/21 0548 Hematology WBC 4.5 - 10.0 x10(3) 7.0 RBC 3.30 - 5.00 x10(6) 3.51 Hgb 12.0 - 16.0 g/dL 10.4 L Hct 36.0 - 48.0 % 31.7 L MCV 80.0 - 99.0 fl 90.4 MCH 28.5 - 32.9 pg 29.5 MCHC 33.0 - 36.0 g/dL 32.7 L RDW 12.5 - 15.7 % 14.4 Plt Count 150 - 450 X10(3) 353 MPV 7.5 - 9.5 fl 8.3 Neut % (Auto) 45.0 - 73.0 % 58.1 Lymph % (Auto) 16.0 - 48.0 % 23.0 [place] % (Auto) 4.3 - 11.2 % 9.1 Eos % (Auto) 0.5 - 4.9 % 9.1 H Baso % (Auto) 0.0 - 1.0 % 0.7 Neut # (Auto) 1.40 - 6.50 x10(3) 4.10 Lymph # (Auto) 1.00 - 3.50 x10(3) 1.60 [place] # (Auto) 0.30 - 0.80 x10(3) 0.60 Eos # (Auto) 0.00 - 0.54 x10(3) 0.60 H Baso # (Auto) 0.00 - 0.10 x10(3) 0.00 Chemistry Range/Units 11/21 0548 Chemistry Sodium 135 - 145 mmol/L 141 Potassium 3.5 - 5.0 mmol/L 4.0 Chloride 98 - 107 mmol/L 108 H Carbon Dioxide 22 - 29 mmol/L 20 L Anion Gap 15 - 22 mmol/L 17.0 BUN 8 - 23 mg/dL 13 Creatinine 0.50 - 0.90 mg/dL 0.96 H Est GFR ( Amer) > 60 ml/min/1.73m2 Est GFR (Non-Af Amer) 56 Glucose 82 - 115 mg/dL 98 Calcium 8.8 - 10.2 mg/dL 8.3 L Magnesium 1.6 - 2.4 mg/dL 1.9 TSH 0.45 - 4.50 uIU/mL 2.58 Range/Units 11/20 11/20 1657 1657 Chemistry Lactic Acid 0.5 - 2.0 mmol/L 1.5 Troponin T 0 - 0.010 ng/mL <0.010 Microbiology Date/Time Procedure - Status Source Growth 11/20 1452 Fungal Culture - RES PLEURAL FL 11/20 1452 Fungal Smear - RES PLEURAL FL 11/20 1452 AFB Plated Culture - RECD PLEURAL FL 11/20 1452 AFB Fluorescent Stain - RECD PLEURAL FL 11/20 UNK Body Fluid Culture - RES PLEURAL FL 11/20 UNK Gram Stain - RES PLEURAL FL 11/19 2034 Blood Culture - RES BLOOD 11/20 2031 Urine Culture - COMP URINE ESCHERICHIA COLI Vital Signs Date Time Temp Pulse Resp B/P B/P Pulse O2 O2 Flow FiO2 Mean Ox Delivery Rate 11/21 0916 94 130/71 11/21 0916 94 130/71 11/21 0614 2L 11/21 0614 2L 11/21 0614 2L 11/21 0400 97.8 86 24 122/80 100 Nasal 2 Cannula 11/21 0000 99.2 82 20 108/82 94 11/21 2035 101.8 11/21 2035 152 152/103 11/21 1999 101.4 145 28 161/78 98 Nasal 2 Cannula 11/20 1625 100.2 106 22 146/85 95 11/20 1607 99 27 161/93 96 11/20 1533 102 24 122/92 96 11/20 1444 103 29 123/90 98 / 1407 107 36 127/85 95 11/20 1215 84 22 127/85 95 Intake AND Output 11/21 0711/20 2300 11/20 1500 Intake Total 1380 554 Output Total 350 400 Balance 1030 -400 554 Current Medications Sig/Hue Start time Last Medication Dose Route Stop Time Status Admin Warfarin Sodium 7.5 MG QDAY17 11/21 1700 AC PO Imipenem/Cilastatin 500 MG Q8H 11/21 0900 I 11/21 Sodium IV 0916 Sodium Chloride 100 ML Levofloxacin 50 ML Q24H 11/21 0000 DC 11/20 IV 2341 Sodium Chloride 500 ML .STK-MED ONE 11/20 2320 DC 11/20 IV 2340 Sodium Chloride 1,000 ML .Q10H 11/20 1715 DC / IV 11/21 0314 1731 Hydrocodone Bitart/ 1 TAB Q4HPRN PRN 11/20 1700 AC Acetaminophen PO Meperidine HCl 25 MG Q2HPRN PRN 11/20 1700 AC 11/20 IV 2342 Ondansetron HCl 4 MG Q8HPRN PRN 11/20 1700 AC IV Sodium Chloride 1,000 ML .Q20H 11/20 1700 DC IV Heparin Sodium/ 500 ML .STK-MED ONE 11/20 1517 DC Sodium Chloride IV Lidocaine 0 .STK-MED ONE 11/20 1516 DC INJ Lidocaine HCl 0 .STK-MED ONE 11/20 1351 DC INJ Losartan Potassium 100 MG QDAY 11/20 899 AC 11/21 PO 915 Metoprolol Tartrate 50 MG BID 11/20 899 AC 11/21 PO 915 Pantoprazole Sodium 40 MG QDAY 11/20 899 AC 11/21 PO 915 Raloxifene HCl 60 MG QDAY 11/20 899 AC 11/21 PO 915 Levothyroxine Sodium 0.15 MG QDAY@0630 11/20 0530 AC 11/21 PO 625 Heparin Sodium See Dose PRN PRN 11/20 0330 AC 11/20 (Porcine) Insts (1) IV 1701 Heparin Sodium/ 500 ML PROTOCOL 11/20 0330 I 11/20 Dextrose IV 2342 Acetaminophen 650 MG Q6HPRN PRN 11/20 0315 AC 11/20 PO 2036 Albuterol/Ipratropium 3 ML Q4HPRN PRN 11/20 0315 AC IH Ondansetron HCl 4 MG Q4HPRN PRN 11/20 0315 AC IV Dose Instructions: (1)Heparin Sodium (Porcine): PER HIGH DOSE HEPARIN SLIDING SCALE Orders Procedure Date/time Status PT/INR 11/22 0400 Active PTT 11/21 2300 Active PTT 11/21 1700 Active PTT 11/21 1100 Active Notify Consulting physician 11/21 0824 Active Insert/Reassess Salgado 11/21 0821 Active VTE Prophylaxis Med Addressed 11/21 0621 Active PTT 11/21 0500 Complete BASIC METABOLIC PANEL 11/21 0400 Complete PHYSICIANS FOR CONSULT 11/21 UNK Active PTT 11/20 2300 Complete Restraint - Non-violent Behav 11/20 2026 Active Insert/Reassess Salgado 11/20 1951 Active Vital Signs - Conditional Ord 11/20 170 Active Straight Cath-Conditional 11/20 170 Active Resume Pre-Procedure Activity 11/20 170 Active Observe for: 11/20 1701 Active Notify Physician IF: 11/20 1701 Active Activity-Log Roll 11/20 170 Active Activity-Bedrest w/HOB elevate 11/20 170 Active Encourage Liquids 11/20 170 Active zDischarge Instructions to Nsg 11/20 170 Active Check Procedure site AND pulse.. 11/20 170 Active Activity-Bedrest, Strict 11/20 170 Active PTT 11/20 1636 Complete PT/INR 11/20 1636 Complete TROPONIN T 11/20 1600 Complete LACTIC ACID 11/20 1600 [place] [id number] 11/20 1454 Active Notify Consulting physician 11/20 1421 Active ADD-ON TEST 11/20 1408 Active BNP(PRO) 11/20 0422 Complete PHYSICIANS FOR CONSULT 11/20 UNK Active Plan Plans Additional Comments 1. Mental status changes, likely due to fever--improving 2. Pulmonary embolus/lung infarct--cont heparin gtt and coumadin 3. New onset AFib--cont rate control and AC 4. New lung mass, left upper lobe, seen on the CT scan--outpatient bx 5. HTN--cont BP meds 6 DVT s/p filter--cont bedrest for today and cont Salgado <Electronically signed by AVRIL DUQUE M.D.> 11/21/17 0937 AVRIL DUQUE M.D. ADDENDUM ADDENDUM: AVRIL DUQUE M.D. on 11/21/17 at 0945 ESBL ecoli--c/s ID for abx rec. <Electronically signed by AVRIL DUQUE M.D.> 11/21/17 0946 AVRIL DUQUE M.D. 3.18 << Signature on File>> Reported By: AVRIL DUQUE M.D. Signed By: AVRIL DUQUE M.D. Tests performed at: [address] [address] PROGRESS Observed: 11/21/2017 Status: COMPLETED Source: [place] 9:12 AM [facility] REPOSITORY [facility] ID: [id number] Author: Yanet Palm Service: (none) Author Type: Nurse Practitioner Type: Progress Notes Filed: 03/15/2018 6:58 PM Note Text: [place] [address] PROGRESS NOTES Patient: PAULA VELASCOLYN YANET PALM C.N.PRocio [id number] [age] F Status: ADM IN ICU [id number] Report Date AND Time: 11/21/17911 YANET PALM 11/21/17911: Subjective * Please Note: All systems reviewed and all are negative except systems noted. 11/21/17 - Patient sitting upright in bed -- denies any c/o chest pain, discomfort, or palpitations. Discussed with RN -- still spiking fevers and ATB being changed for UTI. Review of Systems All Other Systems Other systems reviewed and are negative. Objective Focused Exam Performed General Appearance Alert, Cooperative, No Acute Distress HEENT Atraumatic, WNL Lungs Diminished Neck No JVD Cardiovascular Irregular Rhythm, Normal S1, S2, Murmur (holosystolic) Abdomen Soft, No Tenderness Extremities No Edema Skin No Significant Lesion Neurological Normal Speech, Intact/non-focal, Age Appropriate Psych/Mental Status Normal Affect, Normal Mood, Pleasant Salgado for output measure Nutrition PO Reviewed - Daily Reviewed Information Medications, Consults, Progress Notes, Telemetry, Labs, CXR, Vitals Problems Problems Current Problems 1. Atrial fibrillation with RVR Assessment/Plan Remains in afib - onset of afib unknown. Remains asymptomatic -- HR controlled with metoprolol. Last night shorts burst noted with HR's charted in the 150's, but patient febrile at that time. Will continue with current dose of metoprolol tartrate and monitor closely. Reviewed pulm note, continues with heparin drip / coumadin for anticoagulation. 2. PE (pulmonary thromboembolism) Assessment/Plan Multiple acute right sided pulmonary emboli. Right lower lobe consolidation may reflect pulmonary infarct given emboli. Small to moderate right pleural effusion. A 2.4 cm left upper lobe mass and mediastinal and hilar adenopathy....currently asymptomatic. Continues with heparin drip and coumadin started for anticoagulation. IVC filter placed d/t DVT and need in the future to hold anticoagulation for lung bx. 3. Abnormal CT of the chest Assessment/Plan Multiple acute right sided pulmonary emboli. Right lower lobe consolidation may reflect pulmonary infarct given emboli. Small to moderate right pleural effusion. A 2.4 cm left upper lobe mass and mediastinal and hilar adenopathy. Reviewed pulm note and patient will need outpatient PET scan and possible bx 4. Hypertension Assessment/Plan Controlled 5. Hypothyroid Assessment/Plan Continues with synthroid 6. Anemia Assessment/Plan Hgb 10.4, stable 7. Fever Assessment/Plan Patient with fevers through the night -- discussed with RN, ATB being adjusted based on urine culture results Plan Plans Activity Continue Current Diet Continue Current Nursing No change in orders Medications/IV Plans Continue Current Meds Condition No Change/No Better ZAFAR COOK D.O. 11/21/17 1818: Plan Plans Additional Comments dwayne is not a bad choice 300 cc removed form thoracentesis await cytology <Electronically signed by YANET PALM C.N.P.> 11/21/17 0920 * <Electronically signed by ZAFAR COOK D.O.> 11/22/17 1150 YANET PALM C.N.P., WAYNE D D.O. << Signature on File>> Reported By: YANET PALM C.N.P. Signed By: ZAFAR COOK D.O. Tests performed at: [address] [address] PROGRESS Observed: 11/21/2017 Status: COMPLETED Source: [place] 6:08 AM [facility] REPOSITORY [facility] ID: [id number] Author: William Flores Service: (none) Author Type: Physician Type: Progress Notes Filed: 03/15/2018 6:58 PM Note Text: [place] [address] PULMONARY/CRITICAL CARE PROGRESS NOTES Patient: SG VELASCOMARISELASharitaWILLIAM Jarvis D.O. [id number] [age] F Status: ADM IN ICU [id number] Report Date AND Time: 11/21/17 0608 Subjective * Please Note: still disoriented but pleasant d/w rn and daughter here poc outlined has ivc filter now.................. All systems reviewed and all are negative except systems noted. Review of Systems Constitutional Denies: Anxiety, Body Aches, Pain, Chills, Fever, Weakness, Malaise/Fatigue, Hypersomnolence , Difficulty Sleeping, Night Sweats, Unexplained Weight Loss, General Health is:. Eyes Denies: Diplopia, Glaucoma, Photophobia, Change in Visual Acuity, Blurred Vision. ENT Denies: Ear Discharge/Wax, Chronic Ear Infections, Tinnitus, Hearing Loss, Vertigo. Cardiovascular Denies: Angina, Arrhythmia, CHF, Cardiomyopathy, Claudication, Cyanosis, Dizziness, DVT, Dyspnea on exertion, Edema, Hemoptysis, Night Sweats, Orthopnea, Jaw Pain, Palpitations, PVD , Phlebitis, Poor Exercise Tolerance, Rheumatic Fever, Shortness of Breath, Syncope, Tachycardia. Pulmonary Denies: Asbestos Exposure, Asthma, Cough, Hemoptysis, Hx of Pulmonary Embolism, Hypersomnolence, Orthopnea, Pleuritic Chest Pain, PND, Silcosis, Poor Sleep Quality, Snoring , Sputum Production, Tuberculosis, Wheezing, Pneumoconiosis. Gastrointestinal Denies: Constipation, Diarrhea, Diverticulosis, Dysphagia, GERD, Hematemesis, Hematochezia, Hepatitis, Jaundice, Melena, Peptic Ulcer Disease. Genitourinary Denies: Dysuria, Incontinence, Hematuria, Kidney Stones, Frequent UTI's. Musculoskeletal Denies: Ambulatory Dysfunction, Arthralgias, Intermittent Claudication, Myalgia, Paralysis, Paresthesia, Tremors, Weakness. Skin Denies: Alopecia, Ecchymosis, Eczema, Lesions, Masses, Petechiae, Pruritis, Purpura, Rashes, Varicose Veins. Breast Denies: Discharge, Masses, Pain. Neurological Denies: Ambulatory Dysfunction, Ataxia, CVA, Dysphagia, Epilepsy, Constant Headaches, Head Injury, Memory Loss, Paralysis, Paresthesia, Change in Speech, Syncope, TIA, Vertigo. Psych/Social Issues Denies: Alcoholism, Anxiety, Depression, Hallucinations, Homicidal Thoughts, Memory Loss, Paranoia, Personality Change, Psychosis, Schizophrenia, Suicidal Thoughts. Endocrine Denies: Diabetes, Polyphagia, Polyuria, Thyroid Disease. Hemo/Lymph Denies: Anemia, Excessive Bleeding, Blood/Clotting Disorder, Blood Transfusions, Lymphadenopathy, Radiation Treatment. Allergy/Immuno Denies: HIV, Recurrent Infections, IVDA, UTD on Immunizations. Objective Focused Exam Performed General Appearance Alert, Cooperative, Appears Stated Age, Mild Distress, Well developed, Well hydrated, Well nourished HEENT Atraumatic, PERRLA, WNL, Mucous membranes dry, External ears WNL, Head and Face are normal on inspection, Inferior turbinates are normal without hypertrophy, Mallampati Score: Class3, Nasal mucosa is pink and moist, No oral lesions or candidiasis, Oropharynx appears normal, Septum is midline, Symmetric facies, Tongue appears normal Lung Diminished, Crackles, AP diameter is unremarkable, Chest is normal to inspection and palpation, No bronchial breath sounds or pectoriloquy, No dullness to percussion or egophony , No extraneous sounds, wheeze, rale, rhonchi, rub, No laryngeal stridor, No use of accessory muscle noted, Percussion is resonant and equal, Respiratory rate is normal, Voice resonance is clear Neck Supple (and symmetric), No JVD, No Thryomegaly, +2 Carotid Pulse wo Bruit (and equal bilaterally), No Lymphadopathy, Trachea midline Cardiovascular Irregular Rhythm, Normal S1, S2, Murmur, Good capillary refill, Normal Pulses, No clicks, gallop or rub Abdomen Normal Bowel Sounds (no bruits), No Tenderness (over the abdomen on percussion), No Hepatospenomegaly, No Masses, Obese, No bruit, No femoral bruits, No inguinal adenopathy, No masses, No pulsatile mass Extremities No Cyanosis, Edema, Normal Pulses, Capillary refill is normal, Lower Extremities: Full ROM bilaterally, Lower Extremities: Normal muscle tone bilaterally, No LV or RV heave or cyanosis, No clubbing, No gross pulse deficits, Upper Extremities: Full ROM bilaterally, Upper Extremities: Normal muscle tone bilaterally Skin No Rashes, No Breakdown, No Significant Lesion, No Ulcers, No active synovitis, Skin warm and dry Neurological Normal Speech, Normal Tone, Cranial Nerves 2-12 NL, Reflexes 2+, Intact/non-focal, Achilles and patellar DTR's are brisk and symmetrical , Coordination is normal, Cranial nerves are grossly intact, Good mobility of all extremities Psych/Mental Status Pleasant, Flat Affect, Confused Lymph No palpable or visible regional lymphadenopathy Breast deferred Normal for Patient, Salgado for output measure, Salgado for urinary ret. Endocrine WNL Physical Therapy Bed rest Nutrition PO Stool Constipation Other Physical Findings dvt's noted echo pending right effusion is uncomplicated exudate Reviewed - Daily Reviewed: Medications, Nurse Notes, Progress Notes, Telemetry, DVT/Prophylaxis, Surgical Procedure, Labs, EKG, CXR, Vitals, Micro, Diagnostics, Pleural fluid Labs/Vitals/Meds/Orders Coagulation Range/Units 11/20 11/20 11/20 11/20 2249 1657 1319 1314 Coagulation PT 9.4 - 12.5 secs 13.6 H 14.1 H INR 1.2 1.3 APTT 25.1 - 36.5 secs 106.7 H 27.3 30.6 Hematology Range/Units 11/21 0548 Hematology WBC 4.5 - 10.0 x10(3) 7.0 RBC 3.30 - 5.00 x10(6) 3.51 Hgb 12.0 - 16.0 g/dL 10.4 L Hct 36.0 - 48.0 % 31.7 L MCV 80.0 - 99.0 fl 90.4 MCH 28.5 - 32.9 pg 29.5 MCHC 33.0 - 36.0 g/dL 32.7 L RDW 12.5 - 15.7 % 14.4 Plt Count 150 - 450 X10(3) 353 MPV 7.5 - 9.5 fl 8.3 Neut % (Auto) 45.0 - 73.0 % 58.1 Lymph % (Auto) 16.0 - 48.0 % 23.0 Burleigh % (Auto) 4.3 - 11.2 % 9.1 Eos % (Auto) 0.5 - 4.9 % 9.1 H Baso % (Auto) 0.0 - 1.0 % 0.7 Neut # (Auto) 1.40 - 6.50 x10(3) 4.10 Lymph # (Auto) 1.00 - 3.50 x10(3) 1.60 Burleigh # (Auto) 0.30 - 0.80 x10(3) 0.60 Eos # (Auto) 0.00 - 0.54 x10(3) 0.60 H Baso # (Auto) 0.00 - 0.10 x10(3) 0.00 Chemistry Range/Units 11/20 11/20 1657 1657 Chemistry Lactic Acid 0.5 - 2.0 mmol/L 1.5 Troponin T 0 - 0.010 ng/mL <0.010 Microbiology Date/Time Procedure - Status Source Growth 11/20 1452 Fungal Culture - RES PLEURAL FL 11/20 1452 Fungal Smear - RES PLEURAL FL 11/20 1452 AFB Plated Culture - RECD PLEURAL FL 11/20 1452 AFB Fluorescent Stain - RECD PLEURAL FL 11/20 UNK Body Fluid Culture - RES PLEURAL FL 11/20 UNK Gram Stain - RES PLEURAL FL 11/19 2034 Blood Culture - RES BLOOD 11/20 2031 Urine Culture - RES URINE GRAM NEGATIVE BACILLUS Vital Signs Date Time Temp Pulse Resp B/P B/P Pulse O2 O2 Flow FiO2 Mean Ox Delivery Rate 11/21 0400 97.8 86 24 122/80 100 Nasal 2 Cannula 11/21 0000 99.2 82 20 108/82 94 11/20 203 101.8 11/21 2035 152 152/103 11/20 2000 101.4 145 28 161/78 98 Nasal 2 Cannula 11/20 1625 100.2 106 22 146/85 95 11/20 1607 99 27 161/93 96 11/20 1533 102 24 122/92 96 11/20 1444 103 29 123/90 98 / 1407 107 36 127/85 95 11/20 1215 84 22 127/85 95 11/20 0926 106 179/101 11/20 0926 106 179/101 11/20 0825 98.5 99 18 179/101 96 11/20 0639 RA 11/20 0639 RA Intake AND Output 11/21 0711/20 2300 11/20 1500 Intake Total 1380 554 Output Total 350 400 Balance 1030 -400 554 Current Medications Sig/Hue Start time Last Medication Dose Route Stop Time Status Admin Levofloxacin 50 ML Q24H 11/21 0000 I 11/20 IV 2341 Sodium Chloride 500 ML .STK-MED ONE 11/20 2320 DC 11/20 IV 2340 Sodium Chloride 1,000 ML .Q10H 11/20 1715 DC 11/20 IV 11/21 0314 1731 Hydrocodone Bitart/ 1 TAB Q4HPRN PRN 11/20 1700 AC Acetaminophen PO Meperidine HCl 25 MG Q2HPRN PRN 11/20 1700 AC 11/20 IV 2342 Ondansetron HCl 4 MG Q8HPRN PRN 11/20 1700 AC IV Sodium Chloride 1,000 ML .Q20H 11/20 1700 DC IV Heparin Sodium/ 500 ML .STK-MED ONE 11/20 1517 DC Sodium Chloride IV Lidocaine 0 .STK-MED ONE 11/20 1516 DC INJ Lidocaine HCl 0 .STK-MED ONE 11/20 1351 DC INJ Losartan Potassium 100 MG QDAY 11/20 899 AC 11/20 PO 925 Metoprolol Tartrate 25 MG BID 11/20 899 DC PO Metoprolol Tartrate 50 MG BID 11/20 899 AC 11/20 PO 2035 Pantoprazole Sodium 40 MG QDAY 11/20 899 AC 11/20 PO 926 Raloxifene HCl 60 MG QDAY 11/20 899 AC 11/20 PO 925 Levothyroxine Sodium 0.15 MG QDAY@0630 11/20 0630 AC 11/20 PO 612 Heparin Sodium See Dose PRN PRN 11/20 0330 AC 11/20 (Porcine) Insts (1) IV 1701 Heparin Sodium/ 500 ML PROTOCOL 11/20 0330 I 11/20 Dextrose IV 2342 Acetaminophen 650 MG Q6HPRN PRN 11/20 0315 AC 11/20 PO 2035 Albuterol/Ipratropium 3 ML Q4HPRN PRN 11/20 0315 AC IH Ondansetron HCl 4 MG Q4HPRN PRN 11/20 0315 AC IV Dose Instructions: (1)Heparin Sodium (Porcine): PER HIGH DOSE HEPARIN SLIDING SCALE Orders Procedure Date/time Status PTT 11/21 2300 Active PTT 11/21 1700 Active PTT 11/21 1100 Active PTT 11/21 0500 Active TSH 11/21 0400 Active MAGNESIUM 11/21 0400 Active BASIC METABOLIC PANEL 11/21 0400 Active PTT 11/20 2300 Complete Restraint - Non-violent Behav 11/20 2026 Active Insert/Reassess Salgado 11/20 1951 Active Vital Signs - Conditional Ord 11/20 1701 Active Straight Cath-Conditional 11/20 1701 Active Resume Pre-Procedure Activity 11/20 1701 Active Observe for: 11/20 1701 Active Notify Physician IF: 11/20 1701 Active Activity-Log Roll 11/20 1701 Active Activity-Bedrest w/HOB elevate 11/20 1701 Active Encourage Liquids 11/20 1701 Active zDischarge Instructions to Nsg 11/20 1701 Active Check Procedure site AND pulse.. 11/20 1701 Active Activity-Bedrest, Strict 11/20 1701 Active PTT 11/20 1636 Complete PT/INR 11/20 1636 Complete TROPONIN T 11/20 1600 Complete LACTIC ACID 11/20 1600 [place] [id number] 11/20 1454 Active FUNGAL SMEAR 11/20 1453 Active FUNGAL CULTURE, SPU/FLD/OTHER 11/20 1453 Active FLUID CULTURE AND GRAM STAIN 11/20 145 Active AFB SMEAR/CULTURE 11/20 1453 Active BF-PROTEIN 11/20 1453 Complete BF-PH 11/20 1453 Complete BF-LDH 11/20 1453 Complete BF-GLUCOSE 11/20 1453 Complete BF-CELL COUNT 11/20 1453 Complete BF-AMYLASE 11/20 1453 Complete Notify Consulting physician 11/20 1421 Active ADD-ON TEST 11/20 1408 Active VENOUS DUPLEX OF BILATERAL LEG 11/20 0755 Complete NON MUCKER COFFERDAM CYTOLOGY 11/20 075 Active Hold Blood Thinners Day of Exm 11/20 075 Active PT/INR 11/20 075 Complete BNP(PRO) 11/20 0422 Complete z RN COMMUNICATION 11/20 UNK Active PHYSICIANS FOR CONSULT 11/20 UNK Active Problems Prob/AP Current Problems 1. PE (pulmonary thromboembolism) 2. Pulmonary infarction 3. Bilateral deep vein thromboses 4. Atrial fibrillation with RVR 5. Solitary pulmonary nodule 6. Hilar lymphadenopathy 7. Pleural effusion Plan Plans Activity Continue Bedrest Diet Advance to Regular Nursing See orders Medications/IV Plans Modify Medications Diagnostics Labs Ordered, Discussed Case Condition No Change/No Better, New Problem, Inadequate Response Disposition Stepdown Time Spent 35min. Additional Comments heparin gtt/coumadin overlap rx >4weeks, then pet scan and consider TIERNEY spn biopsy <Electronically signed by WILLIAM FLORES D.O.> 11/21/17 0620 WILLIAM FLORES D.O. << Signature on File>> Reported By: WILLIAM FLORES D.O. Signed By: WILLIAM FLORES D.O. Tests performed at: [address] [id number] CBC Collected: 11/21/2017 Status: F Source: [facility] 5:48 AM HOSPITAL REPOSITORY Order Comment: TO BE COLLECTED LATER Specimen Drawn Below IV TYPE CODE TESTS RESULT OUT OF RANGE REFERENCE UNITS LAB L200.0100 4.5-10.0 x10(3) Normal WBC 7.0 LAB L200.0200 3.30-5.00 x10(6) Normal RBC 3.51 LAB L200.0210 12.0-16.0 g/dL Low HGB 10.4 LAB L200.0220 36.0-48.0 % Low HCT 31.7 LAB L200.0230 80.0-99.0 fl Normal MCV 90.4 LAB L200.0240 28.5-32.9 pg Normal MCH 29.5 LAB L200.0250 33.0-36.0 g/dL Low MCHC 32.7 LAB L200.0260 12.5-15.7 % Normal RDW 14.4 LAB L200.0270 150-450 X10(3) Normal PLT 353 LAB L200.0290 7.5-9.5 fl Normal MPV 8.3 LAB L200.0300 45.0-73.0 % Normal NEUT% 58.1 LAB L200.0310 16.0-48.0 % Normal LYMPH% 23.0 LAB L200.0320 4.3-11.2 % Normal MONO% 9.1 LAB L200.0330 0.5-4.9 % High EOS% 9.1 LAB L200.0340 0.0-1.0 % Normal BASO% 0.7 LAB L200.0350 1.40-6.50 x10(3) Normal NEUT# 4.10 LAB L200.0360 1.00-3.50 x10(3) Normal LYMPH# 1.60 LAB L200.0370 0.30-0.80 x10(3) Normal MONO# 0.60 LAB L200.0380 0.00-0.54 x10(3) High EOS# 0.60 LAB L200.0390 0.00-0.10 x10(3) Normal BASO# 0.00 Performed By: #### L200.0010 #### [facility] [address] [place] [address] [facility] Collected: 11/21/2017 Status: F Source: [facility] 5:48 AM HOSPITAL REPOSITORY Order Comment: TO BE COLLECTED LATER Specimen Drawn Below IV TYPE CODE TESTS RESULT OUT OF RANGE REFERENCE UNITS LAB L100.0060 82-115 mg/dL GLUCOSE Normal 98 LAB L100.0110 8-23 mg/dL BUN Normal 13 LAB L100.0131 0.50-0.90 mg/dL High CREATININE 0.96 LAB L100.0140 8.8-10.2 mg/dL Low CALCIUM 8.3 LAB L100.0150 135-145 mmol/L SODIUM Normal 141 LAB L100.0160 3.5-5.0 mmol/L Normal POTASSIUM 4.0 LAB L100.0170 98-107 mmol/L High CHLORIDE 108 LAB L100.0180 22-29 mmol/L Low TCO2 20 LAB L100.0185 15-22 mmol/L ANION Normal GAP 17.0 LAB L100.0274 eGFR Normal nonAFR Antolin 56 LAB L100.0275 eGFR if Normal AFR ANTOLIN > 60 ml/min/1.73m 2 Result Comment: eGFR >= 60 Indicates normal kidney function. * eGFR IS AN ESTIMATE * (AFR ANTOLIN = ) (non-AFR AM = NON-) MDRD calculation used in the eGFR should not be used to dose medications. For further limitations of the eGFR please refer to the Physician Website or the National Kidney Disease Education Program website (www.nkdep.nih.gov). Performed By: #### L100.0010, L100.0390, L304.0140 #### [facility] [address] [place] [address] MAGNESIUM Collected: 11/21/2017 Status: F Source: [place] 5:48 AM [facility] REPOSITORY Order Comment: TO BE COLLECTED LATER Specimen Drawn Below IV TYPE CODE TESTS RESULT OUT OF RANGE REFERENCE UNITS LAB L100.0390 1.6-2.4 mg/dL Normal MAGNESIUM 1.9 Performed By: #### L100.0010, L100.0390, L304.0140 #### [facility] [address] [place] [address] TSH Collected: 11/21/2017 Status: F Source: [facility] 5:48 AM HOSPITAL REPOSITORY Order Comment: TO BE COLLECTED LATER Specimen Drawn Below IV TYPE CODE TESTS RESULT OUT OF RANGE REFERENCE UNITS LAB L304.0140 0.45-4.50 uIU/mL Normal TSH 2.58 Performed By: #### L100.0010, L100.0390, L304.0140 #### [facility] [address] [place] [address] PTT Collected: 11/21/2017 Status: F Source: [facility] 5:48 AM HOSPITAL REPOSITORY Order Comment: TO BE COLLECTED LATER Specimen Drawn Below IV TYPE CODE TESTS RESULT OUT OF RANGE REFERENCE UNITS LAB L200.1642 25.1-36.5 secs High PTT 96.3 Result Comment: Heparin Protocol Therapeutic Range = 54.0-90.0 secs Performed By: #### L200.1642 #### [facility] [address] [place] [address] PTT Collected: 11/20/2017 Status: F Source: [facility] 10:49 PM HOSPITAL REPOSITORY TYPE CODE TESTS RESULT OUT OF RANGE REFERENCE UNITS LAB L200.1642 25.1-36.5 secs High PTT 106.7 Result Comment: Heparin Protocol Therapeutic Range = 54.0-90.0 secs Performed By: #### L200.1642 #### [facility] [address] [place] [address] OPERATIVE NO Observed: 11/20/2017 Status: COMPLETED Source: [place] 8:21 PM [facility] [place] REPOSITORY HNO ID: [id number] Author: Otoniel Mandel Service: (none) Author Type: Physician Type: Operative Report Filed: 03/15/2018 6:58 PM Note Text: [place] [address] HEALTH INFORMATION MANAGEMENT OPERATIVE REPORT Patient: PAULA VELASCOOTONIEL CHIU M.D. [id number] [age] F Status: ADM IN ICU [id number] DATE OF PROCEDURE 11/20/2017 PREOPERATIVE DIAGNOSIS DVT with pulmonary embolus, lung mass, pleural effusion, relative contraindication to anticoagulation. POSTOPERATIVE DIAGNOSIS DVT with pulmonary embolus, lung mass, pleural effusion, relative contraindication to anticoagulation. PROCEDURE 1. Placement of an IVC filter (Laila) in the infrarenal position via the right common femoral vein. 2. Ultrasound-guided access of the right common femoral vein. 3. Fluoroscopic guidance of wire and catheter placement through the right common femoral vein, external iliac vein, common iliac vein and inferior vena cava. 4. Venogram with interpretation. SURGEON Dr. Mandel. ANESTHESIA Local. PROCEDURE SUMMARY The patient was brought to the angio suite, placed on the table in supine position. Her right groin was sterilely prepped and draped. Ultrasound was used to identify the common femoral vein which was compliant and compressible. Skin over this was anesthetized with 2 mL of 1% lidocaine. 18-gauge needle was advanced into the common femoral vein under ultrasound guidance and a wire was advanced through the needle into the common femoral vein and under fluoroscopic guidance this was advanced through the common femoral vein, external iliac vein, common iliac vein, inferior vena cava. Dilator with introducer sheath was then advanced up into the distal inferior vena cava. The wire was removed and then a venogram was performed with 30 mL of contrast. There was good opacification of the vena cava which appeared to have adequate diameter to accommodate the filter. Both left and right renal veins were identified. The right renal vein was a little bit lower. The tip of the sheath was then placed just below the right renal vein and then the dilator was removed and then the IVC filter was advanced up into the infrarenal inferior vena cava using the obturator. This was held in place as the sheath was pulled back. There was complete deployment of the filter in the infrarenal vena cava with no migration, good approximation to the wall of the vena cava. The introducer sheath was then removed. Pressure was held in place for 10 minutes with good hemostasis. She tolerated the procedure well. <Electronically signed by OTONIEL MANDEL M.D.> 11/22/17 1732 OTONIEL MANDEL M.D. cc: OTONIEL MANDEL M.D. << Signature on File>> Reported By: OTONIEL MANDEL M.D. Signed By: OTONIEL MANDEL M.D. Tests performed at: [place] [id number] OPERATIVE REPORT Observed: 11/20/2017 Status: F Source: [place] 8:21 PM [facility] REPOSITORY [place] [id number] HEALTH INFORMATION MANAGEMENT OPERATIVE REPORT Patient: PALUA VELASCOLYN OTONIEL MANDEL M.D. [id number] F Status: ADM IN ICU [id number] DATE OF PROCEDURE 11/20/2017 PREOPERATIVE DIAGNOSIS DVT with pulmonary embolus, lung mass, pleural effusion, relative contraindication to anticoagulation. POSTOPERATIVE DIAGNOSIS DVT with pulmonary embolus, lung mass, pleural effusion, relative contraindication to anticoagulation. PROCEDURE 1. Placement of an IVC filter ([place]) in the infrarenal position via the right common femoral vein. 2. Ultrasound-guided access of the right common femoral vein. 3. Fluoroscopic guidance of wire and catheter placement through the right common femoral vein, external iliac vein, common iliac vein and inferior vena cava. 4. Venogram with interpretation. SURGEON Dr. Mandel. ANESTHESIA Local. PROCEDURE SUMMARY The patient was brought to the angio suite, placed on the table in supine position. Her right groin was sterilely prepped and draped. Ultrasound was used to identify the common femoral vein which was compliant and compressible. Skin over this was anesthetized with 2 mL of 1% lidocaine. 18-gauge needle was advanced into the common femoral vein under ultrasound guidance and a wire was advanced through the needle into the common femoral vein and under fluoroscopic guidance this was advanced through the common femoral vein, external iliac vein, common iliac vein, inferior vena cava. Dilator with introducer sheath was then advanced up into the distal inferior vena cava. The wire was removed and then a venogram was performed with 30 mL of contrast. There was good opacification of the vena cava which appeared to have adequate diameter to accommodate the filter. Both left and right renal veins were identified. The right renal vein was a little bit lower. The tip of the sheath was then placed just below the right renal vein and then the dilator was removed and then the IVC filter was advanced up into the infrarenal inferior vena cava using the obturator. This was held in place as the sheath was pulled back. There was complete deployment of the filter in the infrarenal vena cava with no migration, good approximation to the wall of the vena cava. The introducer sheath was then removed. Pressure was held in place for 10 minutes with good hemostasis. She tolerated the procedure well. <Electronically signed by OTONIEL MANDEL M.D.> 11/22/17 1732 OTONIEL MANDEL M.D. cc: OTONIEL MANDEL M.D. << Signature on File>> Reported By: OTONIEL MANDEL M.D. Signed By: OTONIEL MANDEL M.D. Tests performed at: [address] [address] PT Collected: 11/20/2017 Status: F Source: [facility] 4:57 PM HOSPITAL REPOSITORY TYPE CODE TESTS RESULT OUT OF RANGE REFERENCE UNITS LAB L200.1612 9.4-12.5 secs High PROTIME 13.6 LAB L200.1622 Normal INR 1.2 Result Comment: COUMADIN PROTOCOLS INR values are generated for use in patients on coumadin. INR values stabilize 7 days after the start of coumadin or changes in coumadin dosage. The usual TARGET/INR range is: INDICATION INR RANGE Prophylaxis/treatment of: Venous Thrombosis, Pulmonary Embolism 2.0-3.0 Prevention of systemic embolism from: Tissue heart valves 2.0-3.0 Acute myocardial infarction (to prevent systemic embolism) 2.0-3.0 AMI (to prevent recurrent CO) 2.5-3.5 Valvular heart disease 2.0-3.0 Atrial fibrillation 2.0-3.0 Mechanical prosthetic valves (high risk) 2.5-3.5 Bileaflet mechanical valve in aortic position 2.0-3.0 Presence of Lupus Anticoagulant or Antiphospholipid Antibodies 2.5-3.5 PANIC VALUE: GREATER THAN OR EQUAL TO 4.5 Performed By: #### L200.1602, L200.1642 #### [facility] [address] [place] [address] PTT Collected: 11/20/2017 Status: F Source: [facility] 4:57 PM HOSPITAL REPOSITORY TYPE CODE TESTS RESULT OUT OF RANGE REFERENCE UNITS LAB L200.1642 25.1-36.5 secs Normal PTT 27.3 Result Comment: Heparin Protocol Therapeutic Range = 54.0-90.0 secs Performed By: #### L200.1602, L200.1642 #### [facility] [address] [place] [address] LACTIC ACID Collected: 11/20/2017 Status: F Source: [facility] 4:57 PM HOSPITAL REPOSITORY Order Comment: TO BE COLLECTED LATER TYPE CODE TESTS RESULT OUT OF RANGE REFERENCE UNITS LAB L100.0440 0.5-2.0 mmol/L Normal LACTIC ACID 1.5 Performed By: #### L100.0440 #### [facility] [address] [place] [address] TROPONIN T Collected: 11/20/2017 Status: F Source: [place] 4:57 PM [facility] REPOSITORY Order Comment: TO BE COLLECTED LATER TYPE CODE TESTS RESULT OUT OF RANGE REFERENCE UNITS LAB L301.0120 0-0.010 ng/mL Normal TROPONIN T <0.010 Performed By: #### L301.0120 #### [facility] [address] [place] [address] CONSULT Observed: 11/20/2017 Status: COMPLETED Source: [place] 4:37 PM [facility] [place] REPOSITORY HNO ID: [id number] Author: Otoniel Mandel Service: (none) Author Type: Physician Type: Consults Filed: 03/15/2018 6:57 PM Note Text: [place] [address] HEALTH INFORMATION MANAGEMENT CONSULTATION Patient: ORESTESSG JOSEPH N M.D. [id number] [age] F Status: ADM IN ICU [id number] DATE OF CONSULTATION 11/20/[address] Ramirez REASON FOR REFERRAL Possible IVC filter placement. HISTORY OF PRESENT ILLNESS The patient is a 82-year-old female who was admitted to the hospital yesterday with some mental status changes and fever. She was noted to be new onset AFib. She had x-rays which revealed right lower lobe consolidation. Also found to have pulmonary embolus in the left upper lobe mass with some mediastinal and hilar adenopathy. She was started on heparin drip. Lower extremity ultrasound revealed left lower extremity DVT extending up the femoral vein and right calf DVT. The patient also had a pleural effusion and needed to be off of anticoagulants for procedure. Consult was made for IVC filter placement. PAST MEDICAL HISTORY Her past medical history is significant for hypertension, GERD, hypothyroidism. PAST SURGICAL HISTORY Past surgical history is significant for previous appendectomy. MEDICATIONS Current medications include Cozaar, Lopressor, Evistor, Synthroid, Prilosec. ALLERGIES None known. SOCIAL HISTORY Negative for any alcohol or tobacco use. She was exposed to secondhand smoke. REVIEW OF SYSTEMS Significant for some recent mental status changes, fever, shortness of breath, otherwise 10 systems reviewed unremarkable. PHYSICAL EXAMINATION Vital signs: She is tachycardia with a heart rate of 103, blood pressure 123/90, respirations 29, temperature 98.5, T max of 102.4. She is alert and oriented, slightly slow to respond but in no acute distress. Neck is without jugular venous distension. Lungs clear. Cardiovascular exam: She is tachycardic with irregular rhythm. Abdomen is flat, soft, nontender. No rebound or guarding. Extremities: Trace bilateral pretibial edema and some right calf tenderness, but there is no acute ischemic changes. Neurologic exam without lateralizing signs. LABORATORY DATA Her white count was 9.5, hemoglobin 10.1, platelets 333,000, BUN 17, creatinine 1.08. Electrolytes normal. INR is 1.3, PTT of 30.6. IMPRESSION 1. 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 2. Right lung mass. 3. Right pleural effusion. 4. Left lung mass. RECOMMENDATIONS We will proceed with IVC filter placement to leave in place while she needs to be off anticoagulation. Recommend anticoagulation when possible. I discussed IVC placement at length with the patient and her daughter, also the possibility of IVC filter removal, also the need of possible leave this in long-term or indefinitely. I made no guarantee that it can be removed. They wished to proceed. All questions were answered. <Electronically signed by OTONIEL MANDEL M.D.> 11/20/17 1857 OTONIEL MANDEL M.D. cc: OTONIEL MANDEL M.D. << Signature on File>> Reported By: OTONIEL MANDEL M.D. Signed By: OTONIEL MANDEL M.D. Tests performed at: [address] [address] CONSULTATION Observed: 11/20/2017 Status: F Source: [place] 4:37 PM [facility] [place] [address] HEALTH INFORMATION MANAGEMENT CONSULTATION Patient: SG VELASCO OTONIEL MANDEL M.D. [id number] [age] F Status: ADM IN ICU [id number] DATE OF CONSULTATION 11/20/[address] Ramirez REASON FOR REFERRAL Possible IVC filter placement. HISTORY OF PRESENT ILLNESS The patient is a 82-year-old female who was admitted to the hospital yesterday with some mental status changes and fever. She was noted to be new onset AFib. She had x-rays which revealed right lower lobe consolidation. Also found to have pulmonary embolus in the left upper lobe mass with some mediastinal and hilar adenopathy. She was started on heparin drip. Lower extremity ultrasound revealed left lower extremity DVT extending up the femoral vein and right calf DVT. The patient also had a pleural effusion and needed to be off of anticoagulants for procedure. Consult was made for IVC filter placement. PAST MEDICAL HISTORY Her past medical history is significant for hypertension, GERD, hypothyroidism. PAST SURGICAL HISTORY Past surgical history is significant for previous appendectomy. MEDICATIONS Current medications include Cozaar, Lopressor, Evistor, Synthroid, Prilosec. ALLERGIES None known. SOCIAL HISTORY Negative for any alcohol or tobacco use. She was exposed to secondhand smoke. REVIEW OF SYSTEMS Significant for some recent mental status changes, fever, shortness of breath, otherwise 10 systems reviewed unremarkable. PHYSICAL EXAMINATION Vital signs: She is tachycardia with a heart rate of 103, blood pressure 123/90, respirations 29, temperature 98.5, T max of 102.4. She is alert and oriented, slightly slow to respond but in no acute distress. Neck is without jugular venous distension. Lungs clear. Cardiovascular exam: She is tachycardic with irregular rhythm. Abdomen is flat, soft, nontender. No rebound or guarding. Extremities: Trace bilateral pretibial edema and some right calf tenderness, but there is no acute ischemic changes. Neurologic exam without lateralizing signs. LABORATORY DATA Her white count was 9.5, hemoglobin 10.1, platelets 333,000, BUN 17, creatinine 1.08. Electrolytes normal. INR is 1.3, PTT of 30.6. IMPRESSION 1. 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 2. Right lung mass. 3. Right pleural effusion. 4. Left lung mass. RECOMMENDATIONS We will proceed with IVC filter placement to leave in place while she needs to be off anticoagulation. Recommend anticoagulation when possible. I discussed IVC placement at length with the patient and her daughter, also the possibility of IVC filter removal, also the need of possible leave this in long-term or indefinitely. I made no guarantee that it can be removed. They wished to proceed. All questions were answered. <Electronically signed by OTOINEL MANDEL M.D.> 11/20/17 1857 OTONIEL MANDEL M.D. cc: OTONIEL MANDEL M.D. << Signature on File>> Reported By: OTONIEL MANDEL M.D. Signed By: OTONIEL MANDEL M.D. Tests performed at: [place] [address] IVC FILTER Observed: 11/20/2017 Status: F Source: [facility] PLC IN IR 2:54 PM HOSPITAL REPOSITORY [address] [address] Name: SG VELASCO Phys: OTONIEL MANDEL M.D. : 35 Age: 82 Sex: F Acct: [id number] Loc: ICU Exam Date: 11/20/17 Status: ADM IN Radiology No.: [id number] Unit Number: [id number] Exam # Type/Exam [id number] IR / [id number] IVC FILTER PLC in IR Intraoperative Fluoroscopy CLINICAL STATEMENT: PE FLUOROSCOPY: 3 minutes AIR KERMA (mGy): 65 BODY PART: IVC IMPRESSION: Documentation of fluoroscopy. Please see intraoperative notes for details. Professional interpretation provided by [facility], [place] on RAC-PC-[id number]. Thank you for this referral. <<Signature on File>> Reported By: ELLE CERDA M.D. Signed In NovaPro By: ELLE CERDA M.D. << Signature on File>> Reported By: ELLE CERDA M.D. Signed By: ELLE CERDA M.D. Tests performed at: [address] [address] BF-PH Collected: 11/20/2017 Status: F Source: [facility] 2:53 PM HOSPITAL REPOSITORY TYPE CODE TESTS RESULT OUT OF RANGE REFERENCE UNITS LAB L100.0960 Normal BF-PH 7.375 Result Comment: Body Fluid Souce: PLEURAL Fluid pH from 7.4 to 7.55 indicates transudate. Fluid pH from 7.3 to 7.45 indicates exudate. Pleural fluid acidosis (where fluid pH <7.3 with a normal arterial pH) exists in rheumatoid arhtritis, empyema, tuberculous pleurisy or peritonitis, malignant effusion, Lupus pleuritis and esophageal rupture. Performed By: #### L100.0960 #### [facility] [address] [place] [address] Collected: 11/20/2017 Status: F Source: [facility] 2:53 PM HOSPITAL REPOSITORY TYPE CODE TESTS RESULT OUT OF RANGE REFERENCE UNITS LAB L200.4065 0-199 /MM3 High BF-TNC 3596 Result Comment: TNC IS THE TOTAL NUCLEATED CELL COUNT TO INCLUDE PRIMARILY WBC'S AND POSSIBLY OTHER NUCLEATED CELL TYPES SUCH TISSUE CELLS OR NUCLEATED RBC'S THAT COULD BE PRESENT IN BODY FLUIDS. LAB L200.4070 0-0 /MM3 High BF-RBC 1829 LAB L200.4140 Normal BF SOURCE PLEURAL LAB L200.4310 % Normal 19 BF SEGS LAB L200.4330 % Normal 77 BF LYMPHS LAB L200.4340 % Normal 4 BF MONOS LAB L200.4390 Normal BF TOT CELL 100 CT LAB L200.4395 Normal BF-MESO FEW Performed By: #### L200.4050 #### [facility] [address] [place] [address] Observed: 11/20/2017 Status: F Source: [facility] FC OTHER 2:53 PM HOSPITAL REPOSITORY FUNGUS CULTURE OTHER NO FUNGUS ISOLATED Performed By: #### M300.0900 #### - LABORATORY [address] [place] [address] BF AMYLASE Collected: 11/20/2017 Status: F Source: [address] REPOSITORY TYPE CODE TESTS RESULT OUT OF RANGE REFERENCE UNITS LAB L100.0980 U/L Normal BF AMYLASE 20 Result Comment: Body Fluid Souce: PLEURAL Fluid to serum amylase ratio should be 1.0. Ratio >1.0 can indicate acute pancreatitis, chronic pancreatic pleural effusion, esophageal rupture, malignancy, pancreatic pseudo- cyst, trauma, gastroduodenal perforation, mesenteric vein thrombosis, intestinal strangulation or necrosis. (Not routinely tested on pleural fluid.) Performed By: #### L100.0980, L100.0990, L100.1000, L100.1020 #### [facility] [address] [place] [address] BF LDH Collected: 11/20/2017 Status: F Source: [address] REPOSITORY TYPE CODE TESTS RESULT OUT OF RANGE REFERENCE UNITS LAB L100.0990 U/L Normal BF LDH 271 Result Comment: Body Fluid Souce: PLEURAL Fluid to serum LDH ratio > 0.6 indicates an exudate. Fluid LDH > 1000 U/L is found in empyema, rheumatoid pleurisy, pleural paragonimiasis, and sometimes malignancy. Performed By: #### L100.0980, L100.0990, L100.1000, L100.1020 #### [facility] [address] [place] [address] BF PROTEIN Collected: 11/20/2017 Status: F Source: [address] REPOSITORY TYPE CODE TESTS RESULT OUT OF RANGE REFERENCE UNITS LAB L100.1000 g/dL Normal BF PROTEIN 2.6 Result Comment: Body Fluid Souce: PLEURAL Fluid to serum protein ratio < 0.5 indicates transudate. Fluid to serum protein ratio >0.5 indicates exudate. Pleural fluid protein of 7.0 or higher indicates Waldenstrom's macroglobulinemia and multiple myeloma. Performed By: #### L100.0980, L100.0990, L100.1000, L100.1020 #### - LABORATORY [address] [place] [address] BF GLU Collected: 11/20/2017 Status: F Source: [facility] 2:53 PM HOSPITAL REPOSITORY TYPE CODE TESTS RESULT OUT OF RANGE REFERENCE UNITS LAB L100.1020 mg/dL Normal BF GLU 119 Result Comment: Body Fluid Souce: PLEURAL Fluid glucose should be similar to that of serum glucose. Low fluid glucose values, < 60 mg/dL, exist in rheumatoid arthritis, empyema, tuberculous pleurisy or peritonitis, malignant effusion, Lupus pleuritis and esophageal rupture. Performed By: #### L100.0980, L100.0990, L100.1000, L100.1020 #### [facility] [address] [place] [address] Observed: 11/20/2017 Status: F Source: [place] [employer] CUL/SMR 2:53 PM [facility] REPOSITORY ACID FAST RESULT NEGATIVE FOR ACID FAST BACILLUS ACID FAST SMEAR FROM CONCENTRATED SPECIMEN: NEGATIVE RESULT RECEIVED FROM [facility] 11/22/17 FINAL: NO GROWTH OF ACID FAST BACILLI. REPORT RECEIVED FROM [facility] 01/19/18. SEND CULTURE SENT TO [facility]. FINAL REPORT TO FOLLOW Performed By: #### M200.0350 #### [place] [address] CHEST-ONE VIEW ONLY - Observed: 11/20/2017 Status: F Source: [place] CXR1 2:45 PM [facility] REPOSITORY [address] [address] Name: SG VELASCO Phys: KRISTIN BOLES M.D. : 35 Age: 82 Sex: F Acct: [id number] Loc: ICU Exam Date: 11/20/17 Status: ADM IN Radiology No.: [id number] Unit Number: [id number] Exam # Type/Exam [id number] RAD / CHEST-ONE VIEW ONLY - CXR1 CHEST portable upright AP in expiration: INDICATION: Post thoracentesis, check for pneumothorax COMPARISON: CT chest 11/19/17 FINDINGS No pneumothorax is seen. There is hazy opacity in the right base from residual pleural effusion and atelectasis. Left lung is clear. Heart size is normal for the projection. IMPRESSION: No post thoracentesis pneumothorax. Residual right pleural effusion and right basilar atelectasis. Professional interpretation provided by [facility], [place] on RAC-PC-60. Thank you for this referral. <<Signature on File>> Reported By: KRISTIN BOLES M.D. Signed In NovaPro By: KRISTIN BOLES M.D. << Signature on File>> Reported By: KRISTIN BOLES M.D. Signed By: KRISTIN BOLES M.D. Tests performed at: [address] [address] NON-GYNECOLOGICAL Observed: 11/20/2017 Status: F Source: [place] 2:40 PM [facility] REPOSITORY Source of the specimen? PL Specimen Description+ Pleural PLEURAL FLUID - RIGHT MATERIALS PREPARED & EXAMINED AIR DRIED SMEAR.....................1 SPRAY FIXED SMEAR...................1 THIN PREP...........................1 CELL BLOCK..........................2 SPECIAL STAINS......................Y GMS/PAS INTERPRETATION/RESULT: NO MALIGNANT CELLS DETECTED. DESCRIPTION: Volume............300 ml Fixed.............N Bloody............N Mucoid............Y Color.............ORANGE CLINICAL HISTORY: The patient has a history of hypertension, hypothyroidism, and gastroesophageal reflux disease. Recently, she was found to have mental status change with fever, pulmonary embolus, right lower lobe consolidation, left upper lobe mass with lymphadenopathy and a urinary tract infection with E. coli which is ESBL positive. A chest CT dated 11/19/17 demonstrated multiple acute right sided pulmonary emboli with right lower lobe consolidation which may represent a pulmonary infarct, a small to moderate right pleural effusion, and a 2.4 cm left upper lobe mass with mediastinal and hilar lymphadenopathy. SCP/sl PLEURAL FLUID, RIGHT, THORACENTESIS: NO MALIGNANCY IDENTIFIED, SEE COMMENT. COMMENT: The specimen is composed of abundant reactive appearing mesothelial cells with mixed inflammatory cells including many histiocytes. GMS and PAS stains performed on the cell block are negative for fungal elements. MICROSCOPIC: Slide(s) reviewed. Signed *Electronically Signed* ANTOINE CURRY M.D. 11/22/17 1407 Performed By: #### P-N #### [facility] [address] [place] [address] 12 LEAD ELECTROCARDIOGRAM Observed: 11/20/2017 Status: F Source: [place] 2:20 PM [facility] REPOSITORY [facility] [address] [place] [address] 12 Lead EKG 11/17/17 1408 MR#: [id number] Acct: [id number] Name: SG VELASCO Rep #: [id number] : 1935 82 From: Maxime Kahn MD Attending Dr: Status: DEP ER Ordering Dr: Viri Saravia MD Date: 11/17/17 Location: ED Sex: F C Admitted: Test Reason : NEW ONSET AFIB Blood Pressure : / mmHG Vent. Rate : 106 BPM Atrial Rate : 127 BPM P-R Int : 000 ms QRS Dur : 076 ms QT Int : 322 ms P-R-T Axes : 000 018 055 degrees QTc Int : 427 ms Atrial fibrillation with premature ventricular or aberrantly conducted complexes Abnormal ECG Confirmed by MAXIME KAHN MD ([id number]), editor news ISAAC BAEZ ([id number]) on 11/20/2017 2:19:58 PM Referred By: Confirmed By:MAXIME KAHN MD 11/20/17 1420 Date Maxime Kahn MD CC: Melvin Weber; Viri Saravia MD Signed PROGRESS Observed: 11/20/2017 Status: COMPLETED Source: [place] 2:17 PM [facility] [place] REPOSITORY HNO ID: [id number] Author: Sudhakar Ramirez Service: General Internal Medicine Author Type: Physician Type: Progress Notes Filed: 03/15/2018 6:57 PM Note Text: [facility] [place] [place] [address] QUICK NOTE Patient: HAIMNASIRSG MUHAMMAD R M.D. [id number] [age] F Status: ADM IN ICU [id number] Report Date AND Time: 11/20/17 1417 Change Of Status Additional Notes Patient Duplex US showed : Procedure: VENOUS DUPLEX OF BILATERAL LEG Notes: RIGHT 1. Deep venous lumen appears non-compressible with echogenic material consistent with acute thrombus affecting the gastrocnemius vein. 2. Superficial venous lumen appears to be compressible with spontaneous, phasic, and augmented doppler signal with no evidence of thrombus. gastrocnemius vein. 3. No augmentations due to deep venous thrombosis finding. LEFT 1. Deep venous lumen appears non-compressible with echogenic material consistent with acute thrombus affecting the common femoral, femoral, deep femoral, popliteal, post tibial, peroneal, gastrocnemius and soleal veins. 2. Superficial venous lumen appears non-compressible with echogenic material consistent with acute thrombus affecting the great saphenous vein and associated varicose veins. 3. No augmentations due to deep venous thrombosis finding. Patient was seen by cardiology and pulmonary teams. Patient went for Right sided thoracocentesis. Plan: - Continue ICU observation - Continue Heparin infusion - Patient possible need IVC filter - due to extensive left LE DVT with gutierrez. PE - Continue IV antibiotics for possible Pneumonia <Electronically signed by SUDHAKAR RAMIREZ M.D.> 11/20/17 1637 SUDHAKAR RAMIREZ M.D. << Signature on File>> Reported By: SUDHAKAR RAMIREZ M.D. Signed By: SUDHAKAR RAMIREZ M.D. Tests performed at: [address] [address] PT Collected: 11/20/2017 Status: F Source: [facility] 1:19 PM HOSPITAL REPOSITORY Order Comment: TO BE COLLECTED LATER TYPE CODE TESTS RESULT OUT OF RANGE REFERENCE UNITS LAB L200.1612 9.4-12.5 secs High PROTIME 14.1 LAB L200.1622 Normal INR 1.3 Result Comment: COUMADIN PROTOCOLS INR values are generated for use in patients on coumadin. INR values stabilize 7 days after the start of coumadin or changes in coumadin dosage. The usual TARGET/INR range is: INDICATION INR RANGE Prophylaxis/treatment of: Venous Thrombosis, Pulmonary Embolism 2.0-3.0 Prevention of systemic embolism from: Tissue heart valves 2.0-3.0 Acute myocardial infarction (to prevent systemic embolism) 2.0-3.0 AMI (to prevent recurrent CO) 2.5-3.5 Valvular heart disease 2.0-3.0 Atrial fibrillation 2.0-3.0 Mechanical prosthetic valves (high risk) 2.5-3.5 Bileaflet mechanical valve in aortic position 2.0-3.0 Presence of Lupus Anticoagulant or Antiphospholipid Antibodies 2.5-3.5 PANIC VALUE: GREATER THAN OR EQUAL TO 4.5 Performed By: #### L200.1602 #### [facility] - [facility]ATORY [address] [place] [address] PTT Collected: 11/20/2017 Status: F Source: [facility] 1:14 PM HOSPITAL REPOSITORY TYPE CODE TESTS RESULT OUT OF RANGE REFERENCE UNITS LAB L200.1642 25.1-36.5 secs Normal PTT 30.6 Result Comment: Heparin Protocol Therapeutic Range = 54.0-90.0 secs Performed By: #### L200.1642 #### [facility] - [facility] [address] [place] [address] ED PROV NOTE Observed: 11/20/2017 Status: COMPLETED Source: [place] 9:05 AM [facility] REPOSITORY HNO ID: [id number] Author: Ashleigh Reece Service: (none) Author Type: Physician Type: ED Provider Notes Filed: 03/15/2018 6:56 PM Note Text: [place] [address] HEALTH INFORMATION MANAGEMENT EMERGENCY DEPARTMENT REPORT Patient: PAULA VELASCOASHLEIGH HANCOCK M.D. [id number] [age] F Status: ADM IN [place] [id number] Date of Service: 11/19/17 CHIEF COMPLAINT Fever and altered mental status. HISTORY OF PRESENT ILLNESS This dictation is an addendum to previously dictated note. I saw this patient in conjunction with Winifred Rush, our nurse practitioner. The patient has new onset A-fib. She has a fever. She has pulmonary emboli, a left lung mass, and pneumonia. We started IV antibiotics. She has gotten some IV fluid. We are going to start heparin and the patient is going to require admissions, so we are paging the hospitalist. I have discussed this with the patient and her family here. ADMIT <Electronically signed by ASHLEIGH REECE M.D.> 11/23/17 1642 ASHLEIGH REECE M.D. cc: ASHLEIGH REECE M.D. << Signature on File>> Reported By: ASHLEIGH REECE M.D. Signed By: ASHLEIGH REECE M.D. Tests performed at: [address] [address] EMERGENCY DEPARTMENT Observed: 11/20/2017 Status: F Source: [facility] 9:05 AM [facility] [place] [address] HEALTH INFORMATION MANAGEMENT EMERGENCY DEPARTMENT REPORT Patient: ORESTESASHLEIGH WILKERSON M.D. [id number] [age] F Status: ADM IN [facility] 2222-A Date of Service: 11/19/17 CHIEF COMPLAINT Fever and altered mental status. HISTORY OF PRESENT ILLNESS This dictation is an addendum to previously dictated note. I saw this patient in conjunction with Winifred Rush, our nurse practitioner. The patient has new onset A-fib. She has a fever. She has pulmonary emboli, a left lung mass, and pneumonia. We started IV antibiotics. She has gotten some IV fluid. We are going to start heparin and the patient is going to require admissions, so we are paging the hospitalist. I have discussed this with the patient and her family here. ADMIT <Electronically signed by ASHLEIGH REECE M.D.> 11/23/17 1642 ASHLEIGH REECE M.D. cc: ASHLEIGH REECE M.D. << Signature on File>> Reported By: ASHLEIGH REECE M.D. Signed By: ASHLEIGH REECE M.D. Tests performed at: [address] [address] CONSULT Observed: 11/20/2017 Status: COMPLETED Source: [place] 8:31 AM [facility] REPOSITORY [facility] ID: [id number] Author: Yanet Palm Service: (none) Author Type: Nurse Practitioner Type: Consults Filed: 03/15/2018 6:56 PM Note Text: [place] [address] CONSULTATION NOTES Patient: SG VELASCO [id number] [age] F Status: ADM IN ICU [id number] Report Date AND Time: 11/20/17 0831 Admitting Physician : ROSA DENISE M.D. Consulting Physician: YANET PALM C.N.P., STEPHANIE A 11/20/17 0831: Subjective Consult Order Requesting Physician: ROSA DENISE M.D. Reason for Consult : New Afib Consult Notes Patient was brought to the ED after being pulled over by police for driving erratically. She was noted to have a mental status change. She has no memory of the events leading to her hospitalization. She was found to have a fever and she was in afib RVR when she presented to the ED. She denies any symptoms at this time, but tells me she has chronic SOB, but has not noticed any changes from her baseline. She c/o intermittent chest discomfort, but again, states it has not been severe enough for her to pay enough attention to describe it. She c/o intermittent flutters and palpitations, but denies any sustained symptoms. Denies any c/o lightheadedness, dizziness. She does c/o LLE edema. She denies any c/o cough, fever, or chills. She denies any prior history of CAD or cardiac arrhythmias. She keeps telling me she is from [place] and just wants to get back there for her care/follow up. There is no prior cardiac testing her for review. She does have history GERD, HTN, hypothyroidism and is on medications at home. Her EKG was reviewed and shows afib RVR with HR 120's. Vitals: Temp 98.5, HR 97, Resp 26, BP 141/77, 94%. Labs: NA 139, K 3.9, Cr 1.08, WBC 9.7, Hgb 10.1, Hct 30.2, platelets 333, PTT 105, troponin 0.010. CT of the chest Multiple acute right sided pulmonary emboli. Right lower lobe consolidation may reflect pulmonary infarct given emboli. Small to moderate right pleural effusion. A 2.4 cm left upper lobe mass and mediastinal and hilar adenopathy. Neoplasm is not excluded. PET scan recommended. CT of the brain was negative. Social Hx: Denies any use of tobacco, ETOH, or illicit drugs Family Hx: Cardiac disease, but patient unsure of what specific Review of Systems Constitutional Fever. Denies: Anxiety, Body Aches, Pain, Chills, Weakness, Malaise/Fatigue, Hypersomnolence, Difficulty Sleeping, Night Sweats, Anorexia, Appetite - Increased, Appetite - Decreased, Unexplained Weight Loss, Unexpalined Weight Gain, Other, General Health is:. Eyes Denies: Diplopia, Glaucoma, Photophobia, Change in Visual Acuity, Blurred Vision, Other. ENT Denies: Ear Pain, Ear Discharge/Wax, Chronic Ear Infections, Tinnitus, Hearing Loss, Nasal Pain, Nasal Discharge, Nasal Congestion, Mouth Pain, Mouth Swelling, Dry Mouth, Throat Swelling, Throat Pain, Tongue Swelling, Bleeding, Vertigo, Other. Cardiovascular Angina (Unable to describe), Edema (LLE), Palpitations. Denies: Arrhythmia, CHF, Cardiomyopathy, Claudication, Cyanosis, Dizziness, DVT, Dyspnea on exertion, Hemoptysis, Night Sweats, Orthopnea, Jaw Pain, PVD, Phlebitis, Poor Exercise Tolerance, Rheumatic Fever, Shortness of Breath, Syncope, Tachycardia, Other. Pulmonary Short of Breath (Chronic). Denies: Asbestos Exposure, Asthma, Cough, Hemoptysis, Hx of Pulmonary Embolism, Hypersomnolence, Orthopnea, Pleuritic Chest Pain, PND, Silcosis, Poor Sleep Quality, Snoring, Sputum Production, Tuberculosis, Wheezing, Pneumoconiosis, Other. Gastrointestinal Denies: Nausea, Vomiting, Abdominal Pain, Constipation, Diarrhea, Diverticulosis, Dysphagia, GERD, Hematemesis, Hematochezia, Hepatitis, Jaundice, Melena, Peptic Ulcer Disease, Other. Genitourinary Denies: Dysuria, Frequency, Incontinence, Hematuria, Retention, Kidney Stones, Frequent UTI' s, Other. Musculoskeletal Denies: Ambulatory Dysfunction, Arthralgias, Intermittent Claudication, Myalgia, Paralysis, Paresthesia, Tremors, Weakness, Pain, Other. Skin Denies: Alopecia, Ecchymosis, Eczema, Lesions, Masses, Petechiae, Pruritis, Purpura, Rashes, Varicose Veins, Other. Neurological Denies: Ambulatory Dysfunction, Ataxia, CVA, Dysphagia, Epilepsy, Constant Headaches, Head Injury, Memory Loss, Paralysis, Paresthesia, Change in Speech, Syncope, TIA, Vertigo, Other. Psych/Social Issues Denies: Alcoholism, Anxiety, Depression, Hallucinations, Homicidal Thoughts, Memory Loss, Paranoia, Personality Change, Psychosis, Schizophrenia, Suicidal Thoughts, Other. Endocrine Denies: Diabetes, Polyphagia, Polyuria, Thyroid Disease, Other. Hemo/Lymph Denies: Anemia, Excessive Bleeding, Blood/Clotting Disorder, Blood Transfusions, Lymphadenopathy, Radiation Treatment, Other. All Other Systems Other systems reviewed and are negative. Objective Focused Exam Performed General Appearance Alert, Oriented X3, Cooperative, No Acute Distress HEENT Atraumatic, WNL Lungs Clear to Auscultation Neck No JVD Cardiovascular Irregular Rhythm, Normal S1, S2, Murmur (holosystolic) Abdomen Soft, No Tenderness Extremities No Edema Skin No Significant Lesion Neurological Normal Speech, Intact/non-focal, Age Appropriate Psych/Mental Status Normal Affect, Normal Mood, Pleasant Reviewed Medications Reported Medications Losartan* Potassium (Cozaar*) 100 MG PO QDAY Metoprolol* Tart (Lopressor*) 25 MG PO BID Raloxifene* Hcl (Evista*) 60 MG PO QDAY Levothyroxine Sodium* (Synthroid*) 150 MCG PO QDAY@0630 Omeprazole* (Prilosec*) 20 MG PO QDAY Allergies Coded Allergies: No Known Drug Allergies (11/19/17) Labs/Vitals/Meds/Orders Coagulation Range/Units 11/20 Coagulation PT 9.4 - 12.5 secs 13.8 H INR 1.2 APTT 25.1 - 36.5 secs 105.2 H 25.8 Hematology Range/Units 11/19 2030 Hematology WBC 4.5 - 10.0 x10(3) 9.5 RBC 3.30 - 5.00 x10(6) 3.42 Hgb 12.0 - 16.0 g/dL 10.1 L Hct 36.0 - 48.0 % 30.2 L MCV 80.0 - 99.0 fl 88.2 MCH 28.5 - 32.9 pg 29.6 MCHC 33.0 - 36.0 g/dL 33.6 RDW 12.5 - 15.7 % 14.2 Plt Count 150 - 450 X10(3) 333 MPV 7.5 - 9.5 fl 8.2 Neut % (Auto) 45.0 - 73.0 % 76.7 H Lymph % (Auto) 16.0 - 48.0 % 10.6 L Burleigh % (Auto) 4.3 - 11.2 % 10.4 Eos % (Auto) 0.5 - 4.9 % 1.3 Baso % (Auto) 0.0 - 1.0 % 1.0 Neut # (Auto) 1.40 - 6.50 x10(3) 7.30 H Lymph # (Auto) 1.00 - 3.50 x10(3) 1.00 Burleigh # (Auto) 0.30 - 0.80 x10(3) 1.00 H Eos # (Auto) 0.00 - 0.54 x10(3) 0.10 Baso # (Auto) 0.00 - 0.10 x10(3) 0.10 Chemistry Range/Units 11/20 Chemistry Sodium 135 - 145 mmol/L 139 Potassium 3.5 - 5.0 mmol/L 3.9 Chloride 98 - 107 mmol/L 108 H Carbon Dioxide 22 - 29 mmol/L 18 L Anion Gap 15 - 22 mmol/L 16.9 BUN 8 - 23 mg/dL 17 Creatinine 0.50 - 0.90 mg/dL 1.08 H Est GFR ( Amer) 59 Est GFR (Non-Af Amer) 49 Glucose 82 - 115 mg/dL 129 H Lactic Acid 0.5 - 2.0 mmol/L 1.2 Calcium 8.8 - 10.2 mg/dL 7.8 L Total Creatine Kinase 26 - 192 IU/L 89 CK-MB (CK-2) 1.0 - 5.34 ng/mL 1.4 Troponin T 0 - 0.010 ng/mL <0.010 Range/Units 11/19 2030 Chemistry Sodium 135 - 145 mmol/L 139 Potassium 3.5 - 5.0 mmol/L 4.2 Chloride 98 - 107 mmol/L 105 Carbon Dioxide 22 - 29 mmol/L 20 L Anion Gap 15 - 22 mmol/L 18.2 BUN 8 - 23 mg/dL 20 Creatinine 0.50 - 0.90 mg/dL 1.23 H Est GFR ( Amer) 51 Est GFR (Non-Af Amer) 42 Glucose 82 - 115 mg/dL 130 H Calcium 8.8 - 10.2 mg/dL 8.6 L Microbiology Date/Time Procedure - Status Source Growth 11/19 2034 Blood Culture - RECD BLOOD 11/20 2031 Urine Culture - RES URINE GRAM NEGATIVE BACILLUS Vital Signs Date Time Temp Pulse Resp B/P B/P Pulse O2 O2 Flow FiO2 Mean Ox Delivery Rate 11/20 638 11/20 98.5 97 26 141/77 97 11/20 144 97.6 119 24 146/90 98 11/19 2145 98.9 11/19 2022 102.4 116 18 142/85 93 11/20 2015 102.4 11/19 2006 102.4 116 18 142/85 93 Intake AND Output 11/20 0700 07/08 2300 11/19 1500 Intake Total 116 Output Total 250 Balance -134 Current Medications Sig/Hue Start time Last Medication Dose Route Stop Time Status Admin Levofloxacin 50 ML Q24H 11/21 0000 AC IV Losartan Potassium 100 MG QDAY 11/20 899 AC PO Metoprolol Tartrate 25 MG BID 11/20 899 AC PO Pantoprazole Sodium 40 MG QDAY 11/20 899 AC PO Raloxifene HCl 60 MG QDAY 11/20 899 AC PO Levothyroxine Sodium 0.15 MG QDAY@0630 11/20 0630 AC 11/20 PO 0613 Heparin Sodium See Dose PRN PRN 11/20 0330 AC (Porcine) Insts (1) IV Heparin Sodium/ 500 ML PROTOCOL 11/20 0330 I Dextrose IV Acetaminophen 650 MG Q6HPRN PRN 11/20 0315 AC PO Albuterol/Ipratropium 3 ML Q4HPRN PRN 11/20 0315 AC IH Ondansetron HCl 4 MG Q4HPRN PRN 11/20 0315 AC IV Heparin Sodium/ See Dose NOW STA 11/20 0303 CAN Dextrose Insts (2) IV 11/20 0304 Heparin Sodium 6,552 UNITS NOW STA 11/20 0016 DC 11/20 (Porcine) IV 11/20 0017 0024 Sodium Chloride 1,000 ML BOLUS STA 11/20 0004 DC 11/20 IV / 0104 0008 Heparin Sodium/ 500 ML PROTOCOL 11/19 2345 DC / Dextrose IV 0029 Ondansetron HCl 4 MG NOW STA 11/19 2342 DCr / IV / 2343 0009 Levofloxacin 100 ML NOW STA 11/19 2326 DCr 07/ IV / 0025 0008 Ceftriaxone Sodium 1 GM NOW STA 11/19 2229 DC 11/19 Dextrose 50 ML IV 11/19 2258 2324 Sodium Chloride 1,000 ML .STK-MED ONE 11/19 2141 DC IV Sodium Chloride 1,000 ML BOLUS STA 11/19 2133 DC 11/19 IV 11/19 2234 2139 Metoprolol Tartrate 5 MG NOW STA 11/19 2041 DC IV 11/19 2042 Acetaminophen 975 MG NOW STA 11/19 2010 DC 11/19 PO 11/19 Dose Instructions: (1)Heparin Sodium (Porcine): PER HIGH DOSE HEPARIN SLIDING SCALE (2)Heparin Sodium/Dextrose: Go to Order Sets Orders Procedure Date/time Status COMPLETE BLOOD COUNT 11/21 0400 Active CARDIAC DIET 11/20 B Active PTT 11/20 1830 Active PTT 11/20 1230 Active VENOUS DUPLEX OF BILATERAL LEG 11/20 0755 Active NON MUCKER COFFERDAM CYTOLOGY 11/20 0755 Active Hold Blood Thinners Day of Exm 11/20 0755 Active FUNGAL SMEAR 11/20 0755 Active FUNGAL CULTURE, SPU/FLD/OTHER 11/20 0755 Active FLUID CULTURE AND GRAM STAIN 11/20 0755 Active AFB SMEAR/CULTURE 11/20 0755 Active PTT 11/20 0755 Active PT/INR 11/20 0755 Active BF-PROTEIN 11/20 0755 Active BF-PH 11/20 0755 Active BF-LDH 11/20 0755 Active BF-GLUCOSE 11/20 0755 Active BF-CELL COUNT 11/20 0755 Active BF-AMYLASE 11/20 0755 Active BODY FLUID DIFF 11/20 0755 Active PTT 11/20 0630 Complete BASIC METABOLIC PANEL 11/20 0400 Complete RT: SPO2 Therapy 11/20 0346 Active RT: O2 Therapy 11/20 0346 Active RT: Assessment 11/20 0346 Active RT: Aerosol Therapy 11/20 0346 Active RT TREATMENT ORDER 11/20 0309 Active OXYGEN PROTOCOL 11/20 0309 Active VS-Vitals per nursing protocol 11/20 0309 Active Notify Consulting physician 11/20 0309 Active Notify/Chart - Atraumatic Fall 11/20 0309 Active zVTE Prophylaxis Education 11/20 0309 Active zPT DIAGNOSIS 11/20 0309 Active Code Status 11/20 0309 Active Tech Brazer Tester 11/20 0309 Active Activity-Bedrest 11/20 0309 Active Adult Emergency [id number] 11/20 0309 Active Admit/Assign to.... 11/20 0309 Active PHYSICIANS FOR CONSULT 11/20 0309 Active US THORA PUNCT PLEURAL CAV 11/20 UNK Active z RN COMMUNICATION 11/20 UNK Active ECHO COMPLETE 11/20 UNK Active Pt requires stay - bed needed 11/19 2338 Active URINE CULTURE 11/19 2010 Active BLOOD CULTURE 11/19 2010 Active URINALYSIS 11/19 2010 Complete TROPONIN T 11/19 2010 Complete PTT 11/19 2010 Complete PT/INR 11/19 2010 Complete LACTIC ACID 11/19 2010 Complete CK AND CK-MB 11/19 2010 Complete COMPLETE BLOOD COUNT 11/19 2010 Complete BASIC METABOLIC PANEL 11/19 2010 Complete Problems Problems Current Problems 1. Atrial fibrillation with RVR Assessment/Plan Remains in afib - onset of afib unknown. She is asymptomatic at this time, but reports intermittent palpitations/flutters at home. She has been on metoprolol tartrate 25mg BID at home, will increase 50mg BID. She is currently on a heparin drip with afib RVR and CT of chest with m tobiastiple acute right sided pulmonary emboli. Discussed options for anticoagulation -- she is aware of coumadin, her and son have taken it in the past, she would prefer one of the newer agents if possible. Considering xarelto at [facility] for anticoagulation -- starter packs available in our office to send with the patient at [facility]. Will discuss more with Dr. Cook prior to starting. Will obtain echo, mag, and TSH. 2. PE (pulmonary thromboembolism) Assessment/Plan Multiple acute right sided pulmonary emboli. Right lower lobe consolidation may reflect pulmonary infarct given emboli. Small to moderate right pleural effusion. A 2.4 cm left upper lobe mass and mediastinal and hilar adenopathy....currently asymptomatic. C/o chronic SOB, but no recent changes from her baseline. Continues with heparin drip at this time. Considering xarelto at [facility], but would like to discuss with Dr. Cook and consultants. 3. Abnormal CT of the chest Assessment/Plan Multiple acute right sided pulmonary emboli. Right lower lobe consolidation may reflect pulmonary infarct given emboli. Small to moderate right pleural effusion. A 2.4 cm left upper lobe mass and mediastinal and hilar adenopathy -- continues with levaquin IV and pulmonary consulted 4. Hypertension Assessment/Plan Controlled 5. Hypothyroid Assessment/Plan Continues with synthroid -- obtain TSH 6. Anemia Assessment/Plan Hgb 10.1, stable 7. Fever Assessment/Plan Resolved 8. GERD (gastroesophageal reflux disease) Assessment/Plan Continues with protonix Plan Plans Activity Continue Current Diet Continue Current Nursing See orders Medications/IV Plans Modify Medications Diagnostics Labs Ordered, Echo Ordered Condition No Change/No Better, Improving/Stable ZAFAR COOK D.O. 11/20/17 1257: Plan Plans Additional Comments ok xarelto await pulm input <Electronically signed by YANET PALM C.N.P.> 11/20/17 0851 * <Electronically signed by ZAFAR COOK D.O.> 11/20/17 1747 YANET PALM C.N.P., WAYNE D D.O. << Signature on File>> Reported By: YANET PALM C.N.P. Signed By: ZAFAR COOK D.O. Tests performed at: [address] [address] CONSULT Observed: 11/20/2017 Status: COMPLETED Source: [place] 8:23 AM [facility] REPOSITORY [facility] ID: [id number] Author: William Flores Service: (none) Author Type: Physician Type: Consults Filed: 03/15/2018 6:56 PM Note Text: [place] [address] HEALTH INFORMATION MANAGEMENT CONSULTATION Patient: SG VELASCO WILLIAM FLORES D.O. [id number] [age] F Status: ADM IN ICU [id number] CONSULTATION/ADMIT CODE LEVEL III PR[address] C[address] PROVIDER Dr. Weber in [place]. HISTORY Sg is an 82-year-old female who apparently was confused, driving erratically and had a fever, brought into the ER and was found to have new onset atrial fibrillation. A CT pulmonary angiogram done and she has unfortunately right greater than left lower lobe pulmonary emboli. She has other findings which will be discussed below. She states she had a right knee replacement arthroplasty in [place] a few months ago. Her additional history was reviewed. She is still disoriented, but pleasant. Additional history: ALLERGIES NKDA. MEDICATIONS Prilosec, Synthroid, Evista, Lopressor, Cozaar. Please see med sheets for dosages. PAST SURGICAL HISTORY Appendectomy and right total knee replacement arthroplasty. PAST MEDICAL HISTORY Degenerative arthritis, hypothyroidism, gastroesophageal reflux disease, hypertension, osteoporosis. SOCIAL HISTORY Some secondhand tobacco exposure from a prior work, but no substance abuse. No occupational hazardous or chemical inhalant exposure. No exotic pets or travel history. No TB exposure or other infectious diseases. She is a . FAMILY HISTORY Breast cancer, coronary artery disease. REVIEW OF SYSTEMS Essentially on complete organ system review otherwise, she denies all other questioning concerning end-organ system dysfunction other than that stated above on complete 14 organ system review. IMMUNIZATIONS Apparently up to date on immunizations. PHYSICAL EXAMINATION Vitals: T-max. 102.4,+ heart rate now 90 she was in the 120s on admission, respiratory rate 24 mildly labored, blood pressure 141/77, pulse ox 94% on room air. BUN and creatinine 17 and 1.1, bicarb is 18 and low. Lactic acid negative. CT brain negative. Hemoglobin 10.1. CT pulmonary angiogram as described. Moderate right pleural effusion, possible right lower lobe infarct, right greater than left pulmonary emboli lower lobes, left upper lobe 2.4 cm nodule/mass and left greater than right hilar adenopathy. HEALTH SUPPORT SPECIALIST exam: Grossly nonfocal by reflex testing. HEENT exam: Class III airway. Dry mucous membranes. No oral lesions or thrush. No JVD, adenopathy, thyromegaly or bruit. No axillary adenopathy. The breasts are not examined. Cardiac auscultation reveals normal S1, normal S2, irregular. No murmur, click, rub or gallop. No LV or RV heave. Auscultation of the lungs reveal basilar crackles, diminished breath sounds on the right. No egophony. No rub. No laryngeal stridor. No accessory muscle use. No chest wall deformities. Abdominal exam: Soft, obese, nontender. No organomegaly mass, pulse deficits, bruits, inguinal adenopathy or femoral bruits. No ascites. External genitalia and rectal exam are not performed. Peripheral exam reveals trace edema. No clubbing, cyanosis, pulse deficits, synovitis, rash, decubiti. No signs of trauma. IMPRESSIONS 1. Submassive pulmonary emboli. 2. Moderate right pleural effusion. 3. Left upper lobe 2.4 cm nodular mass. 4. Hilar adenopathy. 5. New onset AFib. 6. Toxic metabolic encephalopathy. RECOMMENDATIONS Bilateral lower extremity venous Dopplers, 2-D echo with Doppler for risk stratification. I do not think she is a candidate for thrombolytics. She likely needs a right diagnostic and therapeutic thoracentesis before full anticoagulation. Check for cytology and due to the fever, check for complicated parapneumonic effusion. Please see the orders. I will follow her clinically with you and give further advice as warranted. She will need followup and likely biopsy of the left upper lobe nodule, but this cannot be done until she is safely away from her thromboembolic event. PET scan may be helpful in this scenario as well. Please see the orders. I will hold the heparin drip for now and try to get the thoracentesis done later today. <Electronically signed by WILLIAM FLORES D.O.> 11/20/17 0950 WILLIAM FLORES D.O. cc: ROSA DENISE M.D.; WILLIAM FLORES D.O. << Signature on File>> Reported By: WILLIAM FLORES D.O. Signed By: WILLIAM FLORES D.O. Tests performed at: [address] [address] CONSULTATION Observed: 11/20/2017 Status: F Source: [place] 8:23 AM [facility] [place] [address] HEALTH INFORMATION MANAGEMENT CONSULTATION Patient: SG VELASCO WILLIAM FLORES D.O. [id number] [age] F Status: ADM IN ICU [id number] CONSULTATION/ADMIT CODE LEVEL III PRIMARY CARE PROVIDER Dr. Weber in [place]. HISTORY Sg is an 82-year-old female who apparently was confused, driving erratically and had a fever, brought into the ER and was found to have new onset atrial fibrillation. A CT pulmonary angiogram done and she has unfortunately right greater than left lower lobe pulmonary emboli. She has other findings which will be discussed below. She states she had a right knee replacement arthroplasty in [place] a few months ago. Her additional history was reviewed. She is still disoriented, but pleasant. Additional history: ALLERGIES NKDA. MEDICATIONS Prilosec, Synthroid, Evista, Lopressor, Cozaar. Please see med sheets for dosages. PAST SURGICAL HISTORY Appendectomy and right total knee replacement arthroplasty. PAST MEDICAL HISTORY Degenerative arthritis, hypothyroidism, gastroesophageal reflux disease, hypertension, osteoporosis. SOCIAL HISTORY Some secondhand tobacco exposure from a prior work, but no substance abuse. No occupational hazardous or chemical inhalant exposure. No exotic pets or travel history. No TB exposure or other infectious diseases. She is a . FAMILY HISTORY Breast cancer, coronary artery disease. REVIEW OF SYSTEMS Essentially on complete organ system review otherwise, she denies all other questioning concerning end-organ system dysfunction other than that stated above on complete 14 organ system review. IMMUNIZATIONS Apparently up to date on immunizations. PHYSICAL EXAMINATION Vitals: T-max. 102.4,+ heart rate now 90 she was in the 120s on admission, respiratory rate 24 mildly labored, blood pressure 141/77, pulse ox 94% on room air. BUN and creatinine 17 and 1.1, bicarb is 18 and low. Lactic acid negative. CT brain negative. Hemoglobin 10.1. CT pulmonary angiogram as described. Moderate right pleural effusion, possible right lower lobe infarct, right greater than left pulmonary emboli lower lobes, left upper lobe 2.4 cm nodule/mass and left greater than right hilar adenopathy. HEALTH SUPPORT SPECIALIST exam: Grossly nonfocal by reflex testing. HEENT exam: Class III airway. Dry mucous membranes. No oral lesions or thrush. No JVD, adenopathy, thyromegaly or bruit. No axillary adenopathy. The breasts are not examined. Cardiac auscultation reveals normal S1, normal S2, irregular. No murmur, click, rub or gallop. No LV or RV heave. Auscultation of the lungs reveal basilar crackles, diminished breath sounds on the right. No egophony. No rub. No laryngeal stridor. No accessory muscle use. No chest wall deformities. Abdominal exam: Soft, obese, nontender. No organomegaly mass, pulse deficits, bruits, inguinal adenopathy or femoral bruits. No ascites. External genitalia and rectal exam are not performed. Peripheral exam reveals trace edema. No clubbing, cyanosis, pulse deficits, synovitis, rash, decubiti. No signs of trauma. IMPRESSIONS 1. Submassive pulmonary emboli. 2. Moderate right pleural effusion. 3. Left upper lobe 2.4 cm nodular mass. 4. Hilar adenopathy. 5. New onset AFib. 6. Toxic metabolic encephalopathy. RECOMMENDATIONS Bilateral lower extremity venous Dopplers, 2-D echo with Doppler for risk stratification. I do not think she is a candidate for thrombolytics. She likely needs a right diagnostic and therapeutic thoracentesis before full anticoagulation. Check for cytology and due to the fever, check for complicated parapneumonic effusion. Please see the orders. I will follow her clinically with you and give further advice as warranted. She will need followup and likely biopsy of the left upper lobe nodule, but this cannot be done until she is safely away from her thromboembolic event. PET scan may be helpful in this scenario as well. Please see the orders. I will hold the heparin drip for now and try to get the thoracentesis done later today. <Electronically signed by WILLIAM FLORES D.O.> 11/20/17 0950 WILLIAM FLORES D.O. cc: ROSA DENISE M.D.; WILLIAM FLORES D.O. << Signature on File>> Reported By: WILLIAM FLORES D.O. Signed By: WILLIAM FLORES D.O. Tests performed at: [address] [address] VENOUS DUPLEX OF Observed: 11/20/2017 Status: F Source: [place]ATERAL [place] 7:55 AM [facility] [place] [address] Vascular Lab - I[facility]VL Accredited in: Extracranial Cerebrovascular, Visceral Vascular, Vascular Screening & Peripheral Arterial & Venous Testing [employer] REPORT Patient: SG VELASCO Agustin Dr: WILLIAM FLORES D.O. [id number] [age] F Status: ADM IN ICU [id number] Reason for Visit: MULTIPLE RIGHT PE/RLL PNEUMONIA NEW ONSET AFIB Service Date: 11/20/17 Access#: [id number] Procedure: VENOUS DUPLEX OF BILATERAL LEG Conclusions: RIGHT 1. Positive for acute deep venous thrombosis in the gastrocnemius vein. 2. Negative for superficial venous thrombosis 3. No augmentations due to deep venous thrombosis finding. 4. Fluid filled area behind the knee without vascularity. LEFT 1. Positive for acute deep venous thrombosis in the common femoral, femoral, deep femoral, popliteal, post tibial, peroneal, gastrocnemius and soleal veins. 2. Positive for acute superficial venous thrombosis in the great saphenous vein and associated varicose veins. 3. No augmentations due to deep venous thrombosis finding. Abbreviated Final Report. Full Report available via Link to [employer] in [employer] . Electronically Signed by: OTONIEL MANDEL M.D. 11/22/17 0931 OTONIEL MANDEL M.D. cc: WILLIAM LFORES D.O. << Signature on File>> Reported By: OTONIEL MANDEL M.D. Signed By: OTONIEL MANDEL M.D. Tests performed at: [address] [address] HISTORY PHYSICAL Observed: 11/20/2017 Status: COMPLETED Source: [place] 6:07 AM [facility] REPOSITORY [facility] ID: [id number] Author: Rosa Denise MD Service: (none) Author Type: Physician Type: HANDP Filed: 03/15/2018 6:55 PM Note Text: [place] [address] HEALTH INFORMATION MANAGEMENT HISTORY AND PHYSICAL Patient: MARGARETBarbaraSG COLLIN D M.D. [id number] [age] F Status: ADM IN ICU [id number] DATE OF ADMISSION 11/20/2017 CHIEF COMPLAINT Mental status changes and fever. HISTORY This is an 82-year-old female with a history of hypertension, gastroesophageal reflux disease, hypothyroidism. The story per the emergency room is that the patient was found driving erratically, was pulled over by the police, she had mental status changes and was brought to the emergency room where she was found to have a fever, be a new onset AFib, and on further imaging had pulmonary embolus and right lower lobe consolidation and a 2.4 cm left upper lobe mass with mediastinal and hilar adenopathy. The patient was then started on heparin drip, was given antibiotics and admitted for further care. For me at this time the patient denies being pulled over by the police, says she does not remember much from that time but otherwise seems to be alert and oriented, knows that she has blood clots in her lungs and she is not short of breath at all at this time. Has had no chest pain or pressure. Did not realize she had a fever. REVIEW OF SYSTEMS On review of systems, has had no change in vision. No stiff neck or sore throat. No palpitations. No recent upper respiratory symptoms of any kind. No abdominal pain, diarrhea, nausea, vomiting. No urinary frequency or burning. No new skin rashes. She did not realize that there was any change in her thinking or that she had problems driving. She states that she just ran out of gas. No mood changes according to her. PAST MEDICAL HISTORY Includes hypothyroidism, gastroesophageal reflux disease, hypertension. The patient is on Evista but states she has never had breast cancer, does not know what the medication is or why she takes it. PAST SURGICAL HISTORY Includes appendectomy. SOCIAL HISTORY She is a lifelong nonsmoker but she said lots of secondhand smoke. Does not drink alcohol. FAMILY HISTORY Positive for breast cancer in her mother and coronary artery disease in her father. PHYSICAL EXAMINATION Temperature 97.6, pulse rate 119, respiratory rate 24, blood pressure 146/90, satting 98% on room air. HEENT: Pupils equal, round, react to light and accommodation. Extraocular muscles intact. Mouth and throat are clear. Neck: Supple. No JVD, no carotid bruits. Lungs are mostly clear with some crackles in the right base. No wheezes. Heart is irregular. I do not appreciate any murmurs. Abdomen is soft, nontender, nondistended. Extremities show trace to 1+ bilateral pitting edema and lymphedema. Neurologically, mental status appears mostly intact although sometimes she will say things that are a little off but has a fairly good memory for everything but the time in question where she was felt to have mental status changes. LABS White blood cell count 9.5, hemoglobin 10.1, platelet count 333,000. INR 1.2. Sodium 139, potassium 4.2, chloride 105, bicarbonate 20, BUN 20, creatinine 1.23, glucose 130. Lactic acid 1.2, calcium 8.6. CK 89, troponin less than 0.010. Urinalysis, trace leukocyte esterase, 1 to 3 red blood cells, 6 to [address] blood [address] CT, multiple acute right sided pulmonary emboli, right lower lobe consolidation, small to moderate right pleural effusion, 2.4 cm left upper lobe mass with mediastinal and hilar adenopathy. EKG is AFib with RVR with a heart rate of 126. A PVC is seen. No other acute ST or T wave changes. ASSESSMENT AND PLAN 1. Mental status changes, likely due to fever. Fever may be caused by the PE and what may be lung infarct but this could also be pneumonia. She is started on Levaquin for the fever at this time. 2. Pulmonary embolus. No symptoms at all really that we can glean from the patient. It is hard to know if this is new or old but I suspect it is new. She was started on heparin drip and will need oral anticoagulation before discharge. 3. New onset AFib, likely due to the fever and the PE. Patient initially somewhat hypotensive in the ER, now blood pressure is controlled. Heart rate is in the low 100s to high 90s. She is on a heparin drip. Will ask for a cardiology consultation. Echo is pending. 4. New lung mass, left upper lobe, seen on the CT scan. Pulmonary consultation with Dr. Flores for the lung mass and the PE has been done. Likely this will have to be worked up as an outpatient. Will continue her home medications for hypertension, gastroesophageal reflux disease and hypothyroidism as she normally takes them. <Electronically signed by ROSA DENISE M.D.> 11/20/17 0609 ROSA DENISE M.D. cc: ROSA DENISE M.D. << Signature on File>> Reported By: ROSA DENISE M.D. Signed By: ROSA DENISE M.D. Tests performed at: [address] [address] HISTORY AND PHYSICAL Observed: 11/20/2017 Status: F Source: [place] 6:07 AM [facility] [place] [address] HEALTH INFORMATION MANAGEMENT HISTORY AND PHYSICAL Patient: SG VELASCO ROSA DENISE M.D. [id number] [age] F Status: ADM IN ICU [id number] DATE OF ADMISSION 11/20/2017 CHIEF COMPLAINT Mental status changes and fever. HISTORY This is an 82-year-old female with a history of hypertension, gastroesophageal reflux disease, hypothyroidism. The story per the emergency room is that the patient was found driving erratically, was pulled over by the police, she had mental status changes and was brought to the emergency room where she was found to have a fever, be a new onset AFib, and on further imaging had pulmonary embolus and right lower lobe consolidation and a 2.4 cm left upper lobe mass with mediastinal and hilar adenopathy. The patient was then started on heparin drip, was given antibiotics and admitted for further care. For me at this time the patient denies being pulled over by the police, says she does not remember much from that time but otherwise seems to be alert and oriented, knows that she has blood clots in her lungs and she is not short of breath at all at this time. Has had no chest pain or pressure. Did not realize she had a fever. REVIEW OF SYSTEMS On review of systems, has had no change in vision. No stiff neck or sore throat. No palpitations. No recent upper respiratory symptoms of any kind. No abdominal pain, diarrhea, nausea, vomiting. No urinary frequency or burning. No new skin rashes. She did not realize that there was any change in her thinking or that she had problems driving. She states that she just ran out of gas. No mood changes according to her. PAST MEDICAL HISTORY Includes hypothyroidism, gastroesophageal reflux disease, hypertension. The patient is on Evista but states she has never had breast cancer, does not know what the medication is or why she takes it. PAST SURGICAL HISTORY Includes appendectomy. SOCIAL HISTORY She is a lifelong nonsmoker but she said lots of secondhand smoke. Does not drink alcohol. FAMILY HISTORY Positive for breast cancer in her mother and coronary artery disease in her father. PHYSICAL EXAMINATION Temperature 97.6, pulse rate 119, respiratory rate 24, blood pressure 146/90, satting 98% on room air. HEENT: Pupils equal, round, react to light and accommodation. Extraocular muscles intact. Mouth and throat are clear. Neck: Supple. No JVD, no carotid bruits. Lungs are mostly clear with some crackles in the right base. No wheezes. Heart is irregular. I do not appreciate any murmurs. Abdomen is soft, nontender, nondistended. Extremities show trace to 1+ bilateral pitting edema and lymphedema. Neurologically, mental status appears mostly intact although sometimes she will say things that are a little off but has a fairly good memory for everything but the time in question where she was felt to have mental status changes. LABS White blood cell count 9.5, hemoglobin 10.1, platelet count 333,000. INR 1.2. Sodium 139, potassium 4.2, chloride 105, bicarbonate 20, BUN 20, creatinine 1.23, glucose 130. Lactic acid 1.2, calcium 8.6. CK 89, troponin less than 0.010. Urinalysis, trace leukocyte esterase, 1 to 3 red blood cells, 6 to [address] blood [address], multiple acute right sided pulmonary emboli, right lower lobe consolidation, small to moderate right pleural effusion, 2.4 cm left upper lobe mass with mediastinal and hilar adenopathy. EKG is AFib with RVR with a heart rate of 126. A PVC is seen. No other acute ST or T wave changes. ASSESSMENT AND PLAN 1. Mental status changes, likely due to fever. Fever may be caused by the PE and what may be lung infarct but this could also be pneumonia. She is started on Levaquin for the fever at this time. 2. Pulmonary embolus. No symptoms at all really that we can glean from the patient. It is hard to know if this is new or old but I suspect it is new. She was started on heparin drip and will need oral anticoagulation before discharge. 3. New onset AFib, likely due to the fever and the PE. Patient initially somewhat hypotensive in the ER, now blood pressure is controlled. Heart rate is in the low 100s to high 90s. She is on a heparin drip. Will ask for a cardiology consultation. Echo is pending. 4. New lung mass, left upper lobe, seen on the CT scan. Pulmonary consultation with Dr. Flores for the lung mass and the PE has been done. Likely this will have to be worked up as an outpatient. Will continue her home medications for hypertension, gastroesophageal reflux disease and hypothyroidism as she normally takes them. <Electronically signed by ROSA DENISE M.D.> 11/20/17 0609 ROSA DENISE M.D. cc: ROSA DENISE M.D. << Signature on File>> Reported By: ROSA DENISE M.D. Signed By: ROSA DENISE M.D. Tests performed at: [place] [address] PTT Collected: 11/20/2017 Status: F Source: [facility] 6:05 AM HOSPITAL REPOSITORY TYPE CODE TESTS RESULT OUT OF RANGE REFERENCE UNITS LAB L200.1642 25.1-36.5 secs High PTT 105.2 Result Comment: Heparin Protocol Therapeutic Range = 54.0-90.0 secs Performed By: #### L200.1642 #### [facility] [address] [place] [address] BMP Collected: 11/20/2017 Status: F Source: [facility] 4:22 AM HOSPITAL REPOSITORY TYPE CODE TESTS RESULT OUT OF RANGE REFERENCE UNITS LAB L100.0060 82-115 mg/dL High GLUCOSE 129 LAB L100.0110 8-23 mg/dL BUN Normal 17 LAB L100.0131 0.50-0.90 mg/dL High CREATININE 1.08 LAB L100.0140 8.8-10.2 mg/dL Low CALCIUM 7.8 LAB L100.0150 135-145 mmol/L SODIUM Normal 139 LAB L100.0160 3.5-5.0 mmol/L Normal POTASSIUM 3.9 LAB L100.0170 98-107 mmol/L High CHLORIDE 108 LAB L100.0180 22-29 mmol/L Low TCO2 18 LAB L100.0185 15-22 mmol/L ANION Normal GAP 16.9 LAB L100.0274 eGFR Normal nonAFR Antolin 49 LAB L100.0275 eGFR if Normal AFR ANTOLIN 59 Result Comment: eGFR >= 60 Indicates normal kidney function. * eGFR IS AN ESTIMATE * (AFR ANTOLIN = ) (non-AFR AM = NON-) MDRD calculation used in the eGFR should not be used to dose medications. For further limitations of the eGFR please refer to the Physician Website or the National Kidney Disease Education Program website (www.nkdep.nih.gov). Performed By: #### L100.0010 #### [facility] [address] [place] [address] PRO-BNP Collected: 11/20/2017 Status: F Source: [place] 4:22 AM [facility] REPOSITORY Order Comment: ADD ON TYPE CODE TESTS RESULT OUT OF RANGE REFERENCE UNITS LAB L301.0460 pg/mL Normal PRO-BNP 3745 Result Comment: HF UNLIKELY: NT-PRO BNP <300 pg/mL HF LIKELY: NT-PRO BNP >450 pg/mL (AGE <50) NT-PRO BNP >900 pg/mL (AGE 50-75) NT-PRO BNP >1800 pg/mL (AGE >75) HF VERY LIKELY: NT-PRO BNP >10,000 pg/mL SOURCE: [employer]IDE [employer]M FOR PRO-BNP; CRITICAL PATHWAYS IN CARDIOLOGY VOLUME 3, NUMBER 4; APRIL 2004 Performed By: #### L301.0460 #### [facility] [address] [place] [address] PROGRESS Observed: 11/20/2017 Status: COMPLETED Source: [place] 3:20 AM [facility] REPOSITORY [facility] ID: [id number] Author: Rosa Denise MD Service: (none) Author Type: Physician Type: Progress Notes Filed: 03/15/2018 6:55 PM Note Text: [place] [address] QUICK NOTE Patient: SG VELASCO ROSA DENISE M.D. [id number] [age] F Status: ADM IN ICU [id number] Report Date AND Time: 11/20/17 0320 Change Of Status Additional Notes Patient seen and examined. HANDP dictated #[id number] <Electronically signed by ROSA DENISE M.D.> 11/20/17 0321 ROSA DENISE M.D. << Signature on File>> Reported By: ROSA DENISE M.D. Signed By: ROSA DENISE M.D. Tests performed at: [address] [address] US THORA PUNCT Observed: 11/20/2017 Status: F Source: [place] PLEURAL CAV 12:00 AM [facility] REPOSITORY [address] [address] Name: SG VELASCO Phys: WILLIAM FLORES D.O. : 35 Age: 82 Sex: F Acct: [id number] Loc: ICU Exam Date: 11/20/17 Status: ADM IN Radiology No.: [id number] Unit Number: [id number] Exam # Type/Exam [id number] US / US THORA PUNCT PLEURAL CAV RT ULTRASOUND GUIDED THORACENTESIS: Right-sided Clinical Statement: Pleural effusion, diagnostic and therapeutic. DRAINAGE/PUNCTURE SITE: Right posterior chest. QUANTITY OF FLUID REMOVED: 300 cc. CHARACTERISTICS OF FLUID: Yellowish serous. CATHETER USED: 16-gauge Angiocath with single sidehole DISPOSITION OF FLUID: Sent for labs. The thoracentesis was performed in the usual fashion. The procedure was successful with minimal patient discomfort. There were no post-procedural complications. There is small to moderate residual effusion after the procedure. No further fluid could be obtained through the catheter. This was explained to the patient and no further thoracentesis was attempted. IMPRESSION: Successful ultrasound guided thoracentesis. Professional interpretation provided by [facility], [place] on RAC-PC-60. Thank you for this referral. <<Signature on File>> Reported By: KRISTIN BOLES M.D. Signed In [employer] By: KRISTIN BOLES M.D. << Signature on File>> Reported By: KRISTIN BOLES M.D. Signed By: KRISTIN BOLES M.D. Tests performed at: [place] [address] Observed: 11/20/2017 Status: F Source: [facility] 12:00 AM HOSPITAL REPOSITORY GRAM STAIN RESULT NO ORGANISMS SEEN MODERATE WBC MODERATE RBC ORGANISM 1: NO GROWTH Performed By: #### M140.0050 #### [facility] [address] [place] [address] ECHO COMPLETE Observed: 11/20/2017 Status: F Source: [place] 12:00 [place] [address] HEALTH INFORMATION MANAGEMENT CARDIOLOGY REPORT Patient: PAULA VELASCOZAFAR BOLANOS D.O. [id number] [age] F Status: DIS IN [facility] 2222-[id number] Exam # Type/Exam [id number] CARD / ECHO COMPLETE ECHOCARDIOGRAM REPORT DATE OF SERVICE 11/20/[address] 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 HEIGHT 64 WEIGHT 184 BLOOD PRESSURE 146/90 2D/M-MODE MEASUREMENTS Pt VALUES NORMALS IVS (Ed) 1.3 cm 0.6-1.2 cm LVP Wall (Ed) 1.2 cm 0.6-1.2 cm LVID (Ed) 3.9 cm 3.8-5.0 cm LVID (Es) 2.0 cm 2.2-3.4 cm L.A. Diameter 4.2 cm 1.5-4.0 cm Root Diameter 3.7 cm 2.0-3.5 cm ESTIMATED EJECTION FRACTION 60% TECHNICAL DESCRIPTION The patient was imaged in the standard M-mode and 2-D views. Continuous wave and pulsed Doppler interrogation were performed. Color flow was performed. FINDINGS 1. Left Ventricle: Left ventricular wall thickness is increased, 1.2. There is concentric left ventricular hypertrophy. 2. Left Atrium: Left atrial size is increased, 4.2. No signs of any masses. Atrium does bow in the left atrium. No signs of any ASD appreciated. 3. Right Ventricle: Normal. 4. Right Atrium: Normal. 5. Aortic Valve: Aortic valve area 2.7. Aortic valve is three leaflets, opens freely. 6. Mitral Valve: Mitral valve area is 3.8. Mitral valve is normal size and consistency. Mild degree of centrally located regurgitation seen. Doppler interrogation of mitral inflow pattern, reversal of E:A ratio consistent with diastolic dysfunction. 7. Pulmonic Valve: Just a trace of regurgitation. 8. Tricuspid Valve: Mild degree of tricuspid regurgitation. 9. Aorta: Ascending aorta is normal. 10. Pericardium: No evidence of pericardial fluid or masses noted. 11. Intracardiac Masses: No masses noted. 12. PA pressure 35 mmHg. CONCLUSION Echocardiogram demonstrates concentric left ventricular hypertrophy. Ejection fraction 60%. There is mild degree of tricuspid regurgitation. PA pressure 35 mmHg. Diastolic dysfunction is seen. <Electronically signed by ZAFAR COOK D.O.> 12/04/17 1814 ZAFAR COOK D.O. cc: ROSA DENISE M.D. << Signature on File>> Reported By: ZAFAR COOK D.O. Signed By: ZAFAR COOK D.O. Tests performed at: [address] [address] Observed: 11/19/2017 Status: F Source: [facility] 8:35 PM HOSPITAL REPOSITORY No Growth Performed By: #### M105.0000 #### [facility] [address] [place] [address] Observed: 11/19/2017 Status: F Source: [facility] 8:32 PM HOSPITAL REPOSITORY REQUIRES CONTACT PRECAUTIONS ESBL INDICATES THAT THIS STRAIN MAY BE CLINICALLY RESISTANT As of 11/21/17 0717: Antibiotic therapy may not be appropriate based on patient's susceptibility results: ESCHERICHIA COLI - LEVOFLOXACIN: R ORGANISM 1: ESCHERICHIA COLI COLONY COUNT > 100,000 ESCHERICHIA COLI: M.I.C. REACTION TRIMETH/SULFAMETHOXAZOLE >2/38 R AMOXACILLIN/CLAVULANATE 16/8 I AMPICILLIN >16 R* AMPICILLIN/SULBACTAM >16/8 R AZTREONAM >16 ESBL CEFAZOLIN >4 N/R CEFEPIME >16 R* CEFOTAXIME >32 ESBL CEFTAZIDIME >16 ESBL CEFTRIAXONE >32 ESBL CEFUROXIME >16 R* CIPROFLOXACIN >2 R GENTAMICIN >8 R IMIPENEM <=1 S NITROFURANTOIN <=32 S LEVOFLOXACIN >4 R TETRACYCLINE >8 R TICARCILLIN/K CLAV'ATE <=16 S TOBRAMYCIN >8 R AMIKACIN <=16 S ERTAPENEM <=0.5 S PIPERACILLIN/TAZOBACTAM <=16 S S = Susceptible I = Intermediate R = Resistant R*=RESISTANT (ORGANISM HAS INTRINSIC OR INDUCED RESISTANCE) N/R= NOT REPORTED TREMAINE= BETA-LACTAMASE POSITIVE EBL?= EXTENDED SPECTRUM BETA-LACTAMASE Performed By: #### M120.0100 #### [facility] [address] [place] [address] Observed: 11/19/2017 Status: F Source: [facility] 8:32 PM HOSPITAL REPOSITORY No Growth Performed By: #### M105.0000 #### [facility] [address] [place] [address] CBC Collected: 11/19/2017 Status: F Source: [facility] 8:31 PM HOSPITAL REPOSITORY TYPE CODE TESTS RESULT OUT OF RANGE REFERENCE UNITS LAB L200.0100 4.5-10.0 x10(3) Normal WBC 9.5 LAB L200.0200 3.30-5.00 x10(6) Normal RBC 3.42 LAB L200.0210 12.0-16.0 g/dL Low HGB 10.1 LAB L200.0220 36.0-48.0 % Low HCT 30.2 LAB L200.0230 80.0-99.0 fl Normal MCV 88.2 LAB L200.0240 28.5-32.9 pg Normal MCH 29.6 LAB L200.0250 33.0-36.0 g/dL Normal MCHC 33.6 LAB L200.0260 12.5-15.7 % Normal RDW 14.2 LAB L200.0270 150-450 X10(3) Normal PLT 333 LAB L200.0290 7.5-9.5 fl Normal MPV 8.2 LAB L200.0300 45.0-73.0 % High NEUT% 76.7 LAB L200.0310 16.0-48.0 % Low LYMPH% 10.6 LAB L200.0320 4.3-11.2 % Normal MONO% 10.4 LAB L200.0330 0.5-4.9 % Normal EOS% 1.3 LAB L200.0340 0.0-1.0 % Normal BASO% 1.0 LAB L200.0350 1.40-6.50 x10(3) High NEUT# 7.30 LAB L200.0360 1.00-3.50 x10(3) Normal LYMPH# 1.00 LAB L200.0370 0.30-0.80 x10(3) High MONO# 1.00 LAB L200.0380 0.00-0.54 x10(3) Normal EOS# 0.10 LAB L200.0390 0.00-0.10 x10(3) Normal BASO# 0.10 Performed By: #### L200.0010 #### [facility] [address] [place] [address] LACTIC ACID Collected: 11/19/2017 Status: F Source: [facility] 8:31 PM HOSPITAL REPOSITORY Order Comment: COMMENTS: Physician Reminder - 30 ml/Kg IV crystalloid if Lactate >= 4 for Sepsis. TYPE CODE TESTS RESULT OUT OF RANGE REFERENCE UNITS LAB L100.0440 0.5-2.0 mmol/L Normal LACTIC ACID 1.2 Performed By: #### L100.0440 #### [facility] [address] [place] [address] PT Collected: 11/19/2017 Status: F Source: [facility] 8:31 PM HOSPITAL REPOSITORY TYPE CODE TESTS RESULT OUT OF RANGE REFERENCE UNITS LAB L200.1612 9.4-12.5 secs High PROTIME 13.8 LAB L200.1622 Normal INR 1.2 Result Comment: COUMADIN PROTOCOLS INR values are generated for use in patients on coumadin. INR values stabilize 7 days after the start of coumadin or changes in coumadin dosage. The usual TARGET/INR range is: INDICATION INR RANGE Prophylaxis/treatment of: Venous Thrombosis, Pulmonary Embolism 2.0-3.0 Prevention of systemic embolism from: Tissue heart valves 2.0-3.0 Acute myocardial infarction (to prevent systemic embolism) 2.0-3.0 AMI (to prevent recurrent CO) 2.5-3.5 Valvular heart disease 2.0-3.0 Atrial fibrillation 2.0-3.0 Mechanical prosthetic valves (high risk) 2.5-3.5 Bileaflet mechanical valve in aortic position 2.0-3.0 Presence of Lupus Anticoagulant or Antiphospholipid Antibodies 2.5-3.5 PANIC VALUE: GREATER THAN OR EQUAL TO 4.5 Performed By: #### L200.1602, L200.1642 #### [facility] [address] [place], [place] [id number] PTT Collected: 11/19/2017 Status: F Source: [facility] 8:31 PM HOSPITAL REPOSITORY TYPE CODE TESTS RESULT OUT OF RANGE REFERENCE UNITS LAB L200.1642 25.1-36.5 secs Normal PTT 25.8 Result Comment: Heparin Protocol Therapeutic Range = 54.0-90.0 secs Performed By: #### L200.1602, L200.1642 #### [facility] [address] [place] [address] BMP Collected: 11/19/2017 Status: F Source: [facility] 8:31 PM HOSPITAL REPOSITORY TYPE CODE TESTS RESULT OUT OF RANGE REFERENCE UNITS LAB L100.0060 82-115 mg/dL High GLUCOSE 130 LAB L100.0110 8-23 mg/dL BUN Normal 20 LAB L100.0131 0.50-0.90 mg/dL High CREATININE 1.23 LAB L100.0140 8.8-10.2 mg/dL Low CALCIUM 8.6 LAB L100.0150 135-145 mmol/L SODIUM Normal 139 LAB L100.0160 3.5-5.0 mmol/L Normal POTASSIUM 4.2 LAB L100.0170 98-107 mmol/L CHLORIDE Normal 105 LAB L100.0180 22-29 mmol/L Low TCO2 20 LAB L100.0185 15-22 mmol/L ANION Normal GAP 18.2 LAB L100.0274 eGFR Normal nonAFR Antolin 42 LAB L100.0275 eGFR if Normal AFR ANTOLIN 51 Result Comment: eGFR >= 60 Indicates normal kidney function. * eGFR IS AN ESTIMATE * (AFR ANTOLIN = ) (non-AFR AM = NON-) MDRD calculation used in the eGFR should not be used to dose medications. For further limitations of the eGFR please refer to the Physician Website or the National Kidney Disease Education Program website (www.nkdep.nih.gov). Performed By: #### L100.0010 #### [facility] - LAB[facility]AT[facility] [address] [place] [address] CK-MB Collected: 11/19/2017 Status: F Source: [facility] 8:31 PM HOSPITAL REPOSITORY TYPE CODE TESTS RESULT OUT OF RANGE REFERENCE UNITS LAB L301.0100 1.0-5.34 ng/mL Normal CK-MB 1.4 Performed By: #### L301.0100, L301.0105, L301.0120 #### [facility] [address] [place] [address] CK Collected: 11/19/2017 Status: F Source: [facility] 8:31 PM HOSPITAL REPOSITORY TYPE CODE TESTS RESULT OUT OF RANGE REFERENCE UNITS LAB L301.0105 26-192 IU/L Normal CK 89 Result Comment: Relative Index is not calculated as it is only applicable to CK values greater than or equal to 192 IU/L. NO RELATIVE INDEX PERFORMED Performed By: #### L301.0100, L301.0105, L301.0120 #### [facility] [address] [place] [address] TROPONIN T Collected: 11/19/2017 Status: F Source: [place] 8:31 PM [facility] REPOSITORY TYPE CODE TESTS RESULT OUT OF RANGE REFERENCE UNITS LAB L301.0120 0-0.010 ng/mL Normal TROPONIN T <0.010 Performed By: #### L301.0100, L301.0105, L301.0120 #### [facility] [address] [place] [address]40[address] ELECTROCARDIOGRAM Observed: 11/19/2017 Status: F Source: [place] 8:23 PM [facility] [place] [address] HEALTH INFORMATION MANAGEMENT ELECTROCARDIOGRAM REPORT Patient: SG VELASCO Ordering: WINIFRED RUSH BIOMEDICAL ENGINEER-C [id number] [age] F Exam Date: 11/19/17 Report #: [id number] Status: REG ER ED ATRIAL FIBRILLATION WITH RAPID VENTRICULAR RESPONSE No ST elevation or depression; no interval prolongation, no T wave inversions Physician Nut Feeder: CARLO ESTRELLA M.D. Ventricular Rate EK /min R-R Interval: 474 ms P Wave duration: ms QRS duration: 80 ms P-R interval: ms Q-T interval: 289 ms Q-T interval (corrected): 370 ms Q-T Dispersion: ms P wave axis: deg QRS axis: 3 deg T axis: 18 deg Signed in [place] 11/19/17 2237 VANCE ESTRELLA D.O. cc: << Signature on File>> Reported By: VANCE ESTRELLA D.O. Signed By: VANCE ESTRELLA D.O. Tests performed at: [address] [address] [address] CHEST FOR PE W/ Observed: 11/19/2017 Status: F Source: [facility] 8:22 PM HOSPITAL REPOSITORY [address] [address] Name: MARGARETPAULA JimenezSG Phys: WINIFRED RUSH BIOMEDICAL ENGINEER-C : 35 Age: 82 Sex: F Acct: [id number] Loc: ED Exam Date: 11/19/17 Status: REG ER Radiology No.: [id number] Unit Number: [id number] Exam # Type/Exam [id number] CT / CT CHEST FOR PE W/ CONT CTA Chest for PE: Multiplanar sagittal, axial, coronal, and 3D reconstructions were reviewed on a separate workstation. CLINICAL INDICATION: Fever. Altered mental status. New onset atrial fibrillation. Factor 5 Leiden family history. History of hypertension. Hypothyroidism. No additional history provided. COMPARISON: None FINDINGS: The thyroid gland is small. No axillary adenopathy. There is a 1.2 cm left hilar lymph node. A 1.2 cm subcarinal lymph node is identified. Right hilar adenopathy is identified which measures 1 x 1 cm short axis. Additional prominent mediastinal and hilar lymph nodes noted. The heart is mildly enlarged. Coronary artery disease identified. The aorta is atherosclerotic. 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 There is adequate opacification of the pulmonary vasculature. There is a filling defect in the distal right main pulmonary artery extending into lobar and segmental pulmonary arteries consistent with acute pulmonary embolus. Filling defects are also identified in right middle lobe pulmonary arteries consistent with additional pulmonary emboli. There is a small to moderate right pleural effusion and a right lower lobe consolidation which may reflect pulmonary infarct. No pneumothorax. There is a 2.4 x 1.4 cm left upper lobe pulmonary mass with a branching configuration. Scattered calcified granulomas noted. Limited images of the upper abdomen demonstrate splenic granulomas. Multilevel degenerative changes are present in the spine. Degenerative changes also identified in the shoulders. IMPRESSION: Multiple acute right sided pulmonary emboli. Right lower lobe consolidation may reflect pulmonary infarct given emboli. Small to moderate right pleural effusion. A 2.4 cm left upper lobe mass and mediastinal and hilar adenopathy. Neoplasm is not excluded. PET scan recommended. This exam was performed according to our departmental dose optimization program, and includes the following measures where applicable: automated exposure control, adjustment of the mAs and/or kVp according to patient size and/or exam, and an iterative reconstruction algorithm. Professional interpretation provided by [facility], [place] on [employer]-PC-[id number]. Thank you for this referral. <<Signature on File>> Reported By: SIMA ALARCON M.D. Signed In NovaPro By: SIMA ALARCON M.D. << Signature on File>> Reported By: SIMA ALARCON M.D. Signed By: SIMA ALARCON M.D. Tests performed at: [address] [address] [address] BRAIN WITHOUT Observed: 11/19/2017 Status: F Source: [place] CONTRAST- CTB 8:11 PM [facility] REPOSITORY [address] [address] Name: SG VELASCO Phys: WINIFRED RUSH BIOMEDICAL ENGINEER-C : 35 Age: 82 Sex: F Acct: [id number] Loc: ED Exam Date: 11/19/17 Status: REG ER Radiology No.: [id number] Unit Number: [id number] Exam # Type/Exam [id number] CT / CT BRAIN WITHOUT CONTRAST- CTB CT head without contrast Clinical Statement: Mental status change. Fever. Technique: CT slices through the head without contrast. Bone and soft tissue algorithms. Coronal and sagittal reformats. Comparison: None Findings: There is no acute intracranial hemorrhage, hydrocephalus, or mass effect. The ventricles are mildly enlarged with commensurate enlargement of the sulci most consistent with mild age related volume loss. Patchy white matter hypodensities bilaterally are nonspecific but may represent mild chronic microvascular angiopathy in a patient of this age. Atherosclerotic calcifications are shown in the cavernous carotid arteries bilaterally. There is partial visualization of a mucous retention cyst or polyp in the right maxillary sinus. The remainder of the visualized paranasal sinuses and mastoid air cells are clear. No acute calvarial abnormality is identified. Impression: No acute intracranial hemorrhage, hydrocephalus, or mass effect. This exam was performed according to our departmental dose optimization program, and includes the following measures where applicable: automated exposure control, adjustment of the mAs and/or kVp according to patient size and/or exam, and an iterative reconstruction algorithm. Professional interpretation provided by [facility], [place] on [id number]. Thank you for this referral. <<Signature on File>> Reported By: SIMA ALARCON M.D. Signed In NovaPro By: SIMA ALARCON M.D. << Signature on File>> Reported By: SIMA ALARCON M.D. Signed By: SIMA ALARCON M.D. Tests performed at: [address] [address] URINALYSIS Collected: 11/19/2017 Status: F Source: [place] 12:00 AM [facility] REPOSITORY Order Comment: Urine Specimen Source+ CLEAN CATCH TYPE CODE TESTS RESULT OUT OF RANGE REFERENCE UNITS LAB L200.3010 YELLOW URINE Normal COLOR YELLOW LAB L200.3020 CLEAR URINE SL Normal APPEARANC CLOUDY LAB L200.3030 NEGATIVE MG/DL URINE Normal GLUCOSE NEGATIVE LAB L200.3050 NEGATIVE URINE Normal BILIRUBIN MODERATE LAB L200.3060 NEGATIVE MG/DL URINE Normal KETONE TRACE LAB L200.3070 1.001-1.035 URINE Normal SPECIFIC 1.025 LAB L200.3080 NEGATIVE URINE Normal BLOOD TRACE-LYSED LAB L200.3090 5.0-8.0 URINE Normal PH 5.5 LAB L200.3100 NEGATIVE MG/DL URINE 30 Normal PROTEIN LAB L200.3110 0.2-1.0 EU/DL URINE Normal UROBILINO >=8.0 LAB L200.3120 NEGATIVE URINE Normal NITRITE NEGATIVE LAB L200.3130 NEGATIVE URINE Normal LEUKOCYTE TRACE Performed By: #### L200.3000, L200.3190 #### [facility] [address] [place] [address] URINE MICROSCOP Collected: 11/19/2017 Status: F Source: [place] 12:00 AM [facility] REPOSITORY Order Comment: Urine Specimen Source+ CLEAN CATCH TYPE CODE TESTS RESULT OUT OF RANGE REFERENCE UNITS LAB L200.3200 0-5 Normal URINE WBC 6-10 LAB L200.3210 0-2 Normal URINE RBC 1-3 LAB L200.3225 NEGATIVE Normal SQUAMOUS OCC LAB L200.3260 NEGATIVE Normal URINE BACTERIA 2+ Performed By: #### L200.3000, L200.3190 #### [facility] - [facility]AT[facility] [address] [place] [address] EMERGENCY DEPARTMENT Observed: 11/17/2017 Status: F Source: [place] SUMMARY 4:35 PM [facility] REPOSITORY [facility] Medical Records Department [address] [place] [address] [place] [address] Emergency Department Summary 11/17/17 1526 MR#: [id number] Acct: [id number] Name: SG VELASCO Rep #: [id number] : 1935 82 From: Viri Saravia MD PCP: Melvin Weber Status: DEP ER - ER Visit Summary Date of Service: 11/17/17 Chief Complaint: Shortness of breath and chest pain History of Present Illness: The patient is a 82 F who presents with recent mild shortness of breath. She states that she has been burping more than normal and gets chest pain only when she burps. She has a history of atrial fibrillation and hypertension. She reportedly went to the now clinic and then was sent to the emergency room. She denies fever or chills. She does not feel short of breath sitting at rest. Physical Examination: Vital signs significant for heart rate of 104, otherwise unremarkable. Patient is sitting upright in bed no acute distress. She is alert and talkative. Heart is slightly tachycardic and irregular. Lung sounds are clear. Abdomen is soft nontender. Lower extremity examination was no significant calf tenderness or edema. Test Results: EKG is A. fib at 106 with no acute ischemia. Portable chest x-ray shows a very small right pleural effusion with underlying infiltrate or atelectasis. CBC was normal white count and normal differential. Hemoglobin is 10.1. Chemistry studies reveal BUN 26 and creatinine 1.46. LFTs and lipase are normal. TSH is normal. Troponin normal. Emergency Department Course and Treatment: Patient was given gentle IV fluids here. On repeat evaluation heart rate is in the 80s. She feels improved and wants to go home. She will be started on Prevacid. Treatment Plan: [] Disposition: Discharge Impression: Reflux This note was generated with [employer] dictation software. It may contain incorrect words, spelling, and punctuation that were not noted in review of the chart prior to signing ED Disposition - Plan for ED Patient: Chief Complaint: General Illness Referrals: Melvin Weber [Primary Care Provider] - What to do if you have Problems For any increased pain, shortness of breath, bleeding, nausea or vomiting, chest pain, or any unexpected problems, contact your Primary Care Provider. Call [facility] ([phone]) or report to the closest Emergency Room. Call 911 if necessary. 11/17/17 1875 <Electronically signed by Viri Saravia MD> Date Viri Saravia MD Cosigner Signature (If Indicated): Date CC: Melvin Weber URGENT CARE VISIT Observed: 11/17/2017 Status: F Source: [place] REPORT 4:18 PM [facility] [address] [place] [address] OFFICE VISIT Date of Service: 11/17/17 MR#: [id number] Acct: [id number] Name: SG VELASCO Rep #: [id number] : 1935 Provider: Hosea GONZALEZ Age/Sex: 82/F Location: [facility] Status: Signed Intake Intake Visit Reasons: sob Allergies Penicillins Allergy (Verified 06/07/17 09:50) Unknown Medications Levothyroxine [Synthroid] 150 mcg PO DAILY 05/15/15 [History Confirmed 11/17/17] Metoprolol Tartrate [Lopressor (beta guy)] 25 mg PO BID 05/15/15 [History Confirmed 11/17/17] Raloxifene HCl [Evista] 60 mg PO DAILY 06/07/17 [History Confirmed 11/17/17] losartan 100 mg tablet 100 mg PO QDAY 06/19/17 [History Confirmed 11/17/17] Aspirin [Aspirin, Baby] 81 mg PO DAILY@0800 11/17/17 [History Confirmed 11/17/17] Omeprazole [Prilosec] 20 mg PO DAILY #20 cap 11/17/17 [Rx] PFSH Medical History Hypothyroidism (Chronic) Hypertension (Chronic) Hyperlipidemia (Chronic) Paroxysmal atrial fibrillation (Chronic) Surgical History H/O discectomy (Chronic) History of appendectomy (Chronic) Family History Father CVA (cerebral vascular accident) Social History Smoking Status: Never smoker HPI HPI Details: SG VELACSO, is a 82 F who presents to the office today for complaint of shortness of breath and increased belching. Patient states that over the past several days she has had increasing substernal chest pain with belching that causes a burning sensation. She has had no nausea, vomiting or diarrhea. Patient reports that her shortness of breath is particularly with exertion. She also states that over the past several days she has had several bouts of lightheadedness. Patient does have a noted history of GERD as well as A. fib. She has not had any syncopal or near syncopal episodes. No other associated symptoms or alleviating/aggravating factors. ROS Const Constitutional: No chills, fever(s), fatigue or abnormal sleep pattern Resp Respiratory: Positive for shortness of breath; no chest congestion, hemoptysis, wheezing, pain with cough or cough Cardio Cardiology: Positive for shortness of breath and lightheadedness; no chest pain at rest or chest pain with exertion Skin Skin: No wounds or lesions Neuro Neurology: No behavioral changes or confusion Psych Psychiatric: No behavioral changes, No confusion, No abnormal sleep pattern Endo Endocrine: No fatigue Aller/Imm Allergy/Immunologic: No wheezing Exam Const General: cooperative, healthy appearing Resp Effort AND Inspection: normal respiratory effort, symmetric chest movement Auscultation: Bilateral: Clear to Auscultation Other: Patient has difficulty with full sentences due to shortness of breath Cardio Palpation: normal PMI Rate: tachycardic Rhythm: abnormal rhythm irregularly irregular Skin General: no rashes or lesions noted Neuro General: alert, CN's II-XI intact bilaterally, tone normal Psych Appearance: grossly normal Mental Status: mental status grossly normal Assessment AND Plan Problems 1. Paroxysmal atrial fibrillation I48.0 2. Gastroesophageal reflux disease, esophagitis presence not specified K21.9 Plan With history of A. fib and irregular heart rhythm today as well as shortness of breath and lightheadedness patient has been advised to report immediately to the ED for further evaluation and treatment. Patient agrees with this recommendation and daughter who is with her today states that she will take her in her POV immediately. Patient advised to follow-up with PCP for further evaluation of possible GERD symptoms. Patient verbalized understanding of all the above. This note was generated with [employer] dictation software. It may contain incorrect words, spelling, and punctuation that were not noted in checking the note before signing. Coding Level of Care Code Off vis,est,level 4 Diagnoses Paroxysmal atrial fibrillation I48.0 Gastroesophageal reflux disease, esophagitis presence not specified K21.9 Esophagitis presence: esophagitis presence not specified 11/17/17 1618 <Electronically signed by Hosea GONZALEZ> Date Hosea GONZALEZ Cosigner Signature: Date (if applicable) CC: DISCHARGE INSTRUCTION Observed: 11/17/2017 Status: F Source: G[place] 3:30 PM [facility] REPOSITORY [facility] Medical Records Department [address] [place] [address] [place] [address] Discharge Instruction 11/17/17 1528 MR#: [id number] Acct: [id number] Name: HANH VELASCOJulian Miles Rep #: [id number] : 1935 82 From: Viri Saravia MD PCP: Melvin Weber Status: REG ER ED Disposition - Plan for ED Patient: Disposition: Home or Assisted Living Chief Complaint: General Illness Instructions: ED GERD Prescriptions: Omeprazole [Prilosec] 20 mg PO DAILY #20 capsule Referrals: Melvin Weber [Primary Care Provider] - 1-2 Weeks What to do if you have Problems For any increased pain, shortness of breath, bleeding, nausea or vomiting, chest pain, or any unexpected problems, contact your Primary Care Provider. Call [facility] ([phone]) or report to the closest Emergency Room. Call 911 if necessary. 11/17/17 1530 <Electronically signed by Viri Saravia MD> Date Viri Saravia MD Cosigner Signature (If Indicated): Date CC: Melvin Weber CBC W/DIFF, AUTOMATED Collected: 11/17/2017 Status: F Source: GLO 2:30 PM [facility] REPOSITORY TYPE CODE TESTS RESULT OUT OF RANGE REFERENCE UNITS LAB L100.1000 4.4-11.0 K/mm3 Normal WBC 10.0 LAB L100.1200 4.2-5.4 M/mm3 Low RBC 3.42 LAB L100.1300 12.0-15.0 g/dl Low HGB 10.1 LAB L100.1400 37-47 % Low HCT 31.0 LAB L100.1500 81-99 fL Normal MCV 90.6 LAB L100.1600 27.0-32.0 pg Normal MCH 29.5 LAB L100.1700 32-36 g/gl Normal MCHC 32.6 LAB L100.1810 11.6-14.6 % Normal RDW CV 13.8 LAB L100.1820 35.1-43.9 fl High RDW SD 44.3 LAB L100.1900 150-450 K/mm3 Normal PLT 288 LAB L100.2000 6.2-12.0 fl Normal MPV 10.4 LAB L100.2100 47-70 % High NEUT% 70.6 LAB L100.2200 19-41 % Low LY% 17.9 LAB L100.2300 0-10 % High MONO% 10.1 LAB L100.2400 0-5 % Normal EO% 0.9 LAB L100.2500 0-1 % Normal BASO% 0.3 LAB L100.2550 0.0-0.9 % Normal IM GRAN % 0.200 Result Comment: IG% - Immature Granulocytes (promyelocytes, myelocytes and metamyelocytes) > 1% indicates that a LEFT SHIFT is Present. LAB L100.2620 2.0-7.7 X10 3/uL Normal Absolute Neut 7.1 LAB L100.2720 0.83-4.51 X10 3/ul Normal Absolute Lymph 1.80 Performed By: #### L100.0100 #### [facility] [place], [id number] BASIC METABOLIC Collected: 11/17/2017 Status: F Source: [place] PROFILE (BMP) 2:30 PM [facility] REPOSITORY TYPE CODE TESTS RESULT OUT OF RANGE REFERENCE UNITS LAB L501.0100 74-106 mg/dL High GLU 118 Result Comment: Fasting Glucose result from 100 to 125 mg/dL suggests IMPAIRED HOMEOSTASIS per A.D.A. criteria. Please note revised GLUCOSE reference range effective 2017. LAB L501.1000 7-18 mg/dL High BUN 26 LAB L501.1100 0.55-1.02 mg/dL High CREAT,SERUM 1.46 Result Comment: The validity of the calculated GFR AND GFRAA in patients over 70 years has not been determined. Clinical correlation is essential. LAB L501.1110 >60 mL/min Low EST GFR 36 Result Comment: Non- GFR Calc LAB L501.1115 >60 mL/min Low EST GFR - AA 44 Result Comment: GFR Calc LAB L501.1255 ml/min Normal Estimated CRCL 25.65 LAB L501.1300 10-20 RATIO Normal BUN/CRE 17.8 LAB L501.2200 8.5-10 mg/dL Low .1 CA 8.0 LAB L501.5300 136-14 mmol/L Normal 5 NA 140 LAB L501.5600 3.5-5. mmol/L Normal 1 K 3.7 LAB L501.5900 98-107 mmol/L Normal CL 106 LAB L501.6100 21.0-3 mmol/L Normal 2.0 CO2 24.0 LAB L501.6200 5-15 Normal GAP 10 Performed By: #### L500.2500, L500.3400, L501.2450, L501.4010, L501.9520 #### [facility] [address] [place], [address] LIVER PROFILE Collected: 11/17/2017 Status: F Source: [place] 2:30 PM [facility] REPOSITORY TYPE CODE TESTS RESULT OUT OF RANGE REFERENCE UNITS LAB L501.1500 6.4-8.2 g/dL Normal T PROT 6.4 LAB L501.1800 3.2-5.0 g/dL Low ALB 2.4 LAB L501.1950 2.2-4.2 g/dL Normal GLOB 4.0 LAB L501.4100 15-37 U/L Normal AST 16 LAB L501.4305 45-117 U/L Normal ALK P 73 LAB L501.4405 13-56 U/L Normal ALT 13 LAB L501.4600 0.20-1.00 mg/dL Normal T BILI 0.40 LAB L501.4700 0.00-0.30 mg/dL Normal D BILI 0.17 Performed By: #### L500.2500, L500.3400, L501.2450, L501.4010, L501.9520 #### [facility] [address] [place], [place], [id number] LIPASE Collected: 11/17/2017 Status: F Source: [place] 2:30 PM [facility] REPOSITORY TYPE CODE TESTS RESULT OUT OF RANGE REFERENCE UNITS LAB L501.2450 73-393 U/L Normal LIPASE 137 Performed By: #### L500.2500, L500.3400, L501.2450, L501.4010, L501.9520 #### [facility] [address] [place], [place], [id number] TROPONIN-I Collected: 11/17/2017 Status: F Source: [place] 2:30 PM [facility] REPOSITORY TYPE CODE TESTS RESULT OUT OF RANGE REFERENCE UNITS LAB L501.4010 <0.045 ng/mL Normal 0.017 TROPONIN-I Result Comment: TROPONIN-I EXPECTED VALUES <0.045 Negative 0.045 - 0.590 Consistent with Cardiac Damage > OR = 0.600 Critical Value Not every elevated troponin is indicative of CO. These values should be used with clinical judgement in examining the patient's clinical picture for diagnosis. To establish a diagnosis of CO versus myocardial injury, there must be a demonstrated rise and/or fall in the troponin values, in addition to ischemic symptoms, EKG changes, new regional wall motion abnormality, and/or angiographical evidence. PLEASE NOTE: REFERENCE RANGES EDITED 17 Performed By: #### L500.2500, L500.3400, L501.2450, L501.4010, L501.9520 #### [facility] [address] [place], [place], [id number] THYROID STIM HORMONE Collected: 11/17/2017 Status: F Source: [place] (TSH) 2:30 PM [facility] REPOSITORY TYPE CODE TESTS RESULT OUT OF RANGE REFERENCE UNITS LAB L501.9520 0.358-3.74 uIU/mL Normal TSH 0.80 Performed By: #### L500.2500, L500.3400, L501.2450, L501.4010, L501.9520 #### [facility] [address] [place], [address] CHEST 1 VIEW Observed: 11/17/2017 Status: F Source: [place] (PORTABLE) 2:21 PM [facility] REPOSITORY [facility] Imaging Services [address] [facility] [place] [address] Chest 1 View (Portable) MR#: [id number] Acct: [id number] Name: SG VELASCO Rep #: [id number] : 1935 F 82 From: Arnaldo Rosenthal MD PCP: Melvin Weber Status: REG ER Study: Chest 1 View (Portable) Date of Exam: 11/17/17 Exam# [id number] Ordering Dr: Viri Saravia MD STUDY: X-RAY CHEST REASON FOR EXAM: Female, 82 years old. Chest pain. TECHNIQUE: Single AP portable view of the chest. COMPARISON: None. FINDINGS: EKG electrodes are seen. Small right pleural effusion with underlying atelectasis and/or infiltration. Follow-up is recommended. There is no demonstrated pleural abnormality. Normal size heart. Normal mediastinum and daini. Normal visualized pulmonary arteries. There is atherosclerotic tortuosity of the aortic arch and descending thoracic aorta. There are diffuse degenerative changes of the visualized thoracic spine. There is degenerative osteoarthritis of the bilateral shoulders. There is no demonstrated abnormality of the visualized soft tissue structures of the upper abdomen. RAD/Chest 1 View (Portable) IMPRESSION: Small right pleural effusion with underlying infiltration and/or atelectasis. Electronically Signed: Arnaldo Rosenthal MD at 14:52 EDT Tel [phone], Service support , CC: Melvin Weber; Viri Saravia MD Cooking Show Host: Signed PT D/C SUMMARY (1) Observed: 08/04/2017 Status: F Source: [place] 8:45 AM [facility] REPOSITORY [facility] [address] [place] [address] Fax [facility] DISCHARGE SUMMARY MR#: [id number] Acct: [id number] Name: SG VELASCO Rep #: [id number] : 1935 82 From: Jm Barone PT, ATC Referring Dr.: Arnaud Richardson MD Status: REG RCR Insurance: [facility] SELF PAY INSURANCE HP - PT D/C Summary It has been my pleasure to treat SG VELASCO under orders from Arnaud Richardson [email or web address] for the diagnosis of R TKA for a total of 10 visit(s). Discharge Date: Please see the following information for a summary of their discharge status. - Subjective Subjective: Pt reports she is stiff and sore, but no pain - Pain R knee Pain Intensity (Out of 10): 2 - Overall Improvement % Improvement: 15 - Objective Objective/Function: Pain 2/10. ROM: 0-105 degrees. MMT: 5/5 throughout. Pt is I with HEP. Rx goals achieved - Goals Goal 1:: Decrease R knee pain x 50% to aid with IADL's Goal Progress: Goal Met Goal 2:: Increase R knee ROM x 20 degrees to aid with restoring a more normal gait pattern Goal Progress: Goal Met Goal 3:: Increase R knee strength x 1 grade to aid with stair negotiation Goal Progress: Goal Met Goal 4:: I with HEP Goal Progress: Goal Met - Plan Plan: Discharge - D/C Information If there are questions or concerns regarding this patient's physical therapy, please feel free to call me at [phone]. Thank you for the referral of this patient. Sincerely, Jm Barone PT, <Electronically signed by Jm Barone PT, ATC> 08/04/17 0845 CC: Melvin Weber; Arnaud Richardson MD [facility] Signed INITAL EVALUATION (1) Observed: 07/12/2017 Status: F Source: COEBURN - PT 2:10 PM [facility] REPOSITORY [facility] [address] [place], [place] [address] Fax REHABILITATION SERVICES INITIAL EVALUATION MR#: [id number] Acct: [id number] Name: SG VELASCO Rep #: [id number] : 1935 82 From: Jm Barone PT, ATC Referring Dr.: Arnaud Richardson MD Status: REG RCR Insurance: [facility] SELF PAY INSURANCE Patient's Visit Information SG VELASCO is a 82 year old F referred to Physical Therapy by Arnaud MCCLENDON with a diagnosis of R TKA. Date of Evaluation: 07/12/17 Physical Therapist: Jm Barone PT, - Visit Plan Frequency: 2-3x /Week Duration: 4-6 Weeks Plan: R LE strengthening and stretching, balance and proprio, core stab ex's, nustep, and HEP. CP for pain - Subjective Subjective: DOS: 06/29/17. Pt reports she had chronic R knee pain until having this R TKA. Pt reports she is still pretty sore on her R knee, but she is getting better. Pt reports she was in the hospital for 2 days, then the TCU until this past Monday. Pt reports she has been performing her HEP issued by the hospital, but not quite as good as she should be doing them. No T or N in R LE. No sleep diff secondary to pain. Pt has 4 stairs into house, and notes she has to negotiate them one step at a time. 0/10 pain at rest, 5/10 at worst. No PMHx of R knee surgery. Pt reports she is a [employer] here and wants to get back to exercising as soon as possible - Pain R knee Pain Intensity (Out of 10): 0 Pain Intensity Range: 5 - Objective Neuro: B LE sensation is WNL to light touch. B achilles 1/3. ROM: R knee 0-15-91 degrees; 0-105 degrees. MMT: L knee 5/5 throughout, R knee 3/5. Girth at joint line: L knee 43 cm, R knee 46.5 cm - Goals Goal 1:: Decrease R knee pain x 50% to aid with IADL's Goal Time Frame: 4-6 Weeks Goal 2:: Increase R knee ROM x 20 degrees to aid with restoring a more normal gait pattern Goal Time Frame: 4-6 Weeks Goal 3:: Increase R knee strength x 1 grade to aid with stair negotiation Goal Time Frame: 4-6 Weeks Goal 4:: I with HEP Goal Time Frame: 4-6 Weeks - Rehabilitation Potential Physical Therapy Diagnosis: R knee pain, weakness, and limited ROM secondary to R knee pain Rehabilitation Potential: Good - Anticipated Interventions Patient/Client Instruction: Educate patient on: Condition, Plan of Care For the Purpose of:: To improve self management Therapeutic Exercise to Include: Strength training, Endurance training, Balance training, Flexibilty training, Gait and locomotor training, Passive ROM, Active ROM, Dynamic Lumbar Stabilization For the Purpose of:: To decrease pain, To increase ROM, To improve muscle performance and motor function Thank you for the opportunity to evaluate your patient. For Medicare and Medicare HMO plans, please review the plan of care and approve it. It will need to be FAXED BACK to us at [phone] for Medicare purposes. Please let me know if there are questions or concerns regarding this plan of care. Physician Signature: Date: <Electronically signed by Jm Barone PT, ATC> 07/12/17 1410 CC: Melvin Weber; Arnaud Richardson MD [facility] Signed For Medicare only, by signing this I certify the plan of care. Physicians Signature Date BASIC METABOLIC Collected: 07/09/2017 Status: F Source: GLO PROFILE (BMP) 5:10 AM [facility] REPOSITORY TYPE CODE TESTS RESULT OUT OF RANGE REFERENCE UNITS LAB L501.0100 74-106 mg/dL Normal GLU 92 Result Comment: Please note revised GLUCOSE reference range effective 2017. LAB L501.1000 7-18 mg/dL Normal BUN 18 LAB L501.1100 0.55-1.02 mg/dL Normal CREAT,SERUM 0.79 Result Comment: The validity of the calculated GFR AND GFRAA in patients over 70 years has not been determined. Clinical correlation is essential. LAB L501.1110 >60 mL/min Normal EST GFR 74 Result Comment: Non- GFR Calc LAB L501.1115 >60 mL/min Normal EST GFR - AA 89 Result Comment: GFR Calc LAB L501.1255 ml/min Normal Estimated CRCL 34.30 LAB L501.1300 10-20 RATIO High BUN/CRE 22.7 LAB L501.2200 8.5-10 mg/dL Normal .1 CA 8.5 LAB L501.5300 136-14 mmol/L Normal 5 NA 143 LAB L501.5600 3.5-5. mmol/L Normal 1 K 4.7 LAB L501.5900 98-107 mmol/L Normal CL 105 LAB L501.6100 21.0-3 mmol/L Normal 2.0 CO2 31.0 LAB L501.6200 5-15 Normal GAP 7 Performed By: #### L500.2500 #### [facility] [address], [address] CBC W/DIFF, AUTOMATED Collected: 07/09/2017 Status: F Source: GLO 5:10 AM [facility] REPOSITORY TYPE CODE TESTS RESULT OUT OF RANGE REFERENCE UNITS LAB L100.1000 4.4-11.0 K/mm3 Normal WBC 8.5 LAB L100.1200 4.2-5.4 M/mm3 Low RBC 3.42 LAB L100.1300 12.0-15.0 g/dl Low HGB 10.0 LAB L100.1400 37-47 % Low HCT 31.9 LAB L100.1500 81-99 fL Normal MCV 93.3 LAB L100.1600 27.0-32.0 pg Normal MCH 29.2 LAB L100.1700 32-36 g/gl Low MCHC 31.3 LAB L100.1810 11.6-14.6 % Normal RDW CV 13.5 LAB L100.1820 35.1-43.9 fl High RDW SD 46.1 LAB L100.1900 150-450 K/mm3 High PLT 486 LAB L100.2000 6.2-12.0 fl Normal MPV 9.6 LAB L100.2100 47-70 % Normal NEUT% 56.7 LAB L100.2200 19-41 % Normal LY% 25.4 LAB L100.2300 0-10 % Normal MONO% 9.9 LAB L100.2400 0-5 % High EO% 7.3 LAB L100.2500 0-1 % Normal BASO% 0.6 LAB L100.2550 0.0-0.9 % Normal IM GRAN % 0.100 Result Comment: IG% - Immature Granulocytes (promyelocytes, myelocytes and metamyelocytes) > 1% indicates that a LEFT SHIFT is Present. LAB L100.2620 2.0-7.7 X10 3/uL Normal Absolute Neut 4.8 LAB L100.2720 0.83-4.51 X10 3/ul Normal Absolute Lymph 2.16 Performed By: #### L100.0100 #### [facility] [address] [place], [address] DISCHARGE SUMMARY Observed: 07/06/2017 Status: F Source: COEBURN 9:17 PM [facility] REPOSITORY [facility] Medical Records Department [address] [place] [address] Discharge Summary 07/06/175 MR#: [id number] Acct: [id number] Name: SG VELASCO Rep #: [id number] : 1935 81 From: Arnaud Richardson MD PCP: Melvin Weber Status: ADM IN Location: [place] [address] Discharge Date and Diagnosis Date of Admission: 07/01/17 Date of Discharge: 07/09/17 - Secondary Discharge Diagnosis Chronic Problems (Last Updated 06/19/17 @ 12:21 by Kathryn Bear) Osteoarthritis of right knee (Chronic) GERD (gastroesophageal reflux disease) (Chronic) Osteoporosis (Chronic) Factor V Leiden (Chronic) Hypothyroidism (Chronic) Hypertension (Chronic) Hyperlipidemia (Chronic) Paroxysmal atrial fibrillation (Chronic) Hospital Course and Treatment Imaging Results: 07/01/17 14:29 Diet: Regular Diet Operations: None Procedures: None Summary of Care Provided: The patient is a 81 year old Female with below past medical history hospitalized for right total knee arthroplasty 06/29/[address] Stallings, admitted to TCU for rehabilitation, strengthening, prior to discharge home alone. Discharge home alone with outpatient physical therapy. Discharge Diet: No Restrictions Discharge Activity: Return to Normal Activity, May Shower, Use Walker Weight Bearing Status: Weight bearing as tolerated Call your doctor if you observe: Fever of 101 or Higher, Inability to urinate, Inability to have a bowel movement, Shortness of breath, Chest pain, Uncontrolled pain Home Medications: Medications to take at Discharge Levothyroxine [Synthroid] 150 mcg PO DAILY 05/15/15 Metoprolol Tartrate [Lopressor (beta guy)] 25 mg PO BID 05/15/15 Raloxifene HCl [Evista] 60 mg PO DAILY 06/07/17 losartan 100 mg tablet 100 mg PO QDAY 06/19/17 Acetaminophen [Tylenol] 1,000 mg PO Q8 07/01/17 Aspirin 325 mg PO BIDCM #36 tab 07/06/17 Famotidine [Pepcid] 20 mg PO DAILY #30 tab 07/06/17 Hydrocortisone 2.5% Crm [Hytone] 1 applic TOPICAL BID PRN PRN #1 tube 07/06/17 Polyethylene Glycol 3350 [Miralax] 17 gm PO DAILY #30 packet 07/06/17 TraMADol [Ultram] 50 mg PO Q6H PRN PRN #30 tablet 07/06/17 Following Prescrptions Were Given to Patient: TraMADol [Ultram] 50 mg PO Q6H PRN PRN #30 tablet PRN Reason: Moderate Pain (4-5/10) Famotidine [Pepcid] 20 mg PO DAILY #30 tab Hydrocortisone 2.5% Crm [Hytone] 1 applic TOPICAL BID PRN PRN #1 tube PRN Reason: SKIN IRRITATION/ITCHING Polyethylene Glycol 3350 [Miralax] 17 gm PO DAILY #30 packet Aspirin 325 mg PO BIDCM #36 tab Primary Care Physician: Melvin Weber [Primary Care Provider] - Please follow up with your Primary Care Physician in: 1 week. Please Follow Up With: Martha Reynolds When: [phone] Please Follow Up With: Melvin Weber When: [phone] Disposition: Home Minutes spent on discharge:: 30 Patient Condition:: Good Meaningful Use Info Meaningful Use Diagnoses (Choose all that apply): None applicable 07/06/172116 <Electronically signed by Arnaud Richardson MD> Date Arnaud Richardson MD Cosigner Signature (if applicable): Date CC: Melvin Weber; Arnaud Richardson MD Signed DISCHARGE INSTRUCTION Observed: 07/06/2017 Status: F Source: COEBURN 9:15 PM [facility] REPOSITORY [facility] Medical Records Department [address] [place] [address] Instructions for Home/Discharge Instructions 07/06/172112 MR#: [id number] Acct: [id number] Name: HANH VELASCOJulian Miles Rep #: [id number] : 1935 81 From: Arnaud Richardson MD PCP: Melvin Weber Status: ADM IN - Discharge Diagnoses Current Active Problems: Current Active and Chronic Problems (Last Updated 06/19/17 @ 12:21 by Kathryn Bear) Osteoarthritis of right knee (Chronic) GERD (gastroesophageal reflux disease) (Chronic) Osteoporosis (Chronic) Factor V Leiden (Chronic) You will use the following diet at home:: No restrictions, Regular Your food should be the consistency of: Regular Your liquids should be the consistency of: Regular/Thin Discharge Activity: Return to Normal Activity, May Shower, Use Walker Weight Bearing Status: Weight bearing as tolerated Call your doctor if you observe: Fever of 101 or Higher, Inability to urinate, Inability to have a bowel movement, Shortness of breath, Chest pain, Uncontrolled pain Allergies/Adverse Reactions: Allergies Penicillins Allergy (Verified 06/07/17 09:50) Unknown Medications to take at Discharge Levothyroxine [Synthroid] 150 mcg PO DAILY 05/15/15 Metoprolol Tartrate [Lopressor (beta guy)] 25 mg PO BID 05/15/15 Raloxifene HCl [Evista] 60 mg PO DAILY 06/07/17 losartan 100 mg tablet 100 mg PO QDAY 06/19/17 Acetaminophen [Tylenol] 1,000 mg PO Q8 07/01/17 Aspirin 325 mg PO BIDCM #36 tab 07/06/17 Famotidine [Pepcid] 20 mg PO DAILY #30 tab 07/06/17 Hydrocortisone 2.5% Crm [Hytone] 1 applic TOPICAL BID PRN PRN #1 tube 07/06/17 Polyethylene Glycol 3350 [Miralax] 17 gm PO DAILY #30 packet 07/06/17 TraMADol [Ultram] 50 mg PO Q6H PRN PRN #30 tablet 07/06/17 The following prescriptions were given: TraMADol [Ultram] 50 mg PO Q6H PRN PRN #30 tablet PRN Reason: Moderate Pain (4-5/10) Famotidine [Pepcid] 20 mg PO DAILY #30 tab Hydrocortisone 2.5% Crm [Hytone] 1 applic TOPICAL BID PRN PRN #1 tube PRN Reason: SKIN IRRITATION/ITCHING Polyethylene Glycol 3350 [Miralax] 17 gm PO DAILY #30 packet Aspirin 325 mg PO BIDCM #36 tab Primary Care Physician: Melvin Weber [Primary Care Provider] - Please follow up with your Primary Care Physician in: 1 week. Please Follow Up With: Martha Reynolds When: [phone] Please Follow Up With: Melvin Weber When: [phone] Proposed Discharge Date: 07/09/17 07/06/172114 <Electronically signed by Arnaud Richardson MD> Date Arnaud Richardson MD CC: Melvin Weber HISTORY AND PHYSICAL Observed: 07/03/2017 Status: F Source: COEBURN EXAM 8:13 AM [facility] REPOSITORY [facility] Medical Records Department [address] [place] [address] History and Physical 07/01/172050 MR#: [id number] Acct: [id number] Name: SG VELASCO Rep #: [id number] : 1935 81 From: Arnaud Richardson MD PCP: Melvin Weber Status: ADM IN Y Location: [place] [address] Problem List (1) Osteoarthritis of right knee Status: Chronic (2) GERD (gastroesophageal reflux disease) Status: Chronic (3) Osteoporosis Status: Chronic (4) Factor V Leiden Status: Chronic (5) Hypothyroidism Status: Chronic (6) Hypertension Status: Chronic History of Present Illness Date of Admission: 07/01/17 Chief Complaint: Here for rehabilitation, strengthening, prior to discharge home. The patient is a 81 year old Female with below past medical history hospitalized for right total knee arthroplasty 06/29/[address] Stallings. 07/01/2017 Admit to TCU for rehabilitation, strengthening, prior to discharge home alone. Past Medical History Past Medical History (Chronic Problems): Chronic Problems (Last Updated 06/19/17 @ 12:21 by Kathryn Bear) Osteoarthritis of right knee (Chronic) GERD (gastroesophageal reflux disease) (Chronic) Osteoporosis (Chronic) Factor V Leiden (Chronic) Hypothyroidism (Chronic) Hypertension (Chronic) Hyperlipidemia (Chronic) Paroxysmal atrial fibrillation (Chronic) Allergies Penicillins Allergy (Verified 06/07/17 09:50) Unknown Home Medications: Ambulatory Orders Medication Instructions Recorded Levothyroxine [Synthroid] 150 mcg PO DAILY 05/15/15 Metoprolol Tartrate [Lopressor 25 mg PO BID 05/15/15 Surgical History: total knee arthroplasty - Right. Psychiatric History: No pertinent psych hx MUCKER COFFERDAM History: No pertinent MUCKER COFFERDAM history Lives: Alone Smoking Status: Never smoker Tobacco Use: Non-smoker Alcohol: None Drugs: None - *Family History Maternal History Items: No pertinent history Paternal History Items: No pertinent history Review of Systems Constitutional: Denies: Chills, Fever, Weight Change HEENT: Denies: Head Aches, Sinus Congestion, Sinus Drainage Cardiovascular: Denies: Chest Pain, Palpitations Respiratory: Denies: Cough, Shortness of breath at rest, Sputum production Gastrointestinal: Reports: Constipation. Denies: Abdominal Pain, Nausea, Vomiting Genitourinary: Denies: Dysuria Musculoskeletal: Denies: Joint Pain, Joint Tenderness Skin: Denies: Rash, Wounds Neurological: Denies: Numbness, Tingling, Focal weakness Psychiatric: Denies: Anxiety, Depression, Homicidal Ideations, Suicidal Ideations Hematologic/ Lymphatic: Denies: Easy Bruising, Easy Bleeding VTE Information - Inpt Only VTE Present on Admission: No VTE Mechan Device Prophylaxis: Knee High MANJINDER Hose VTE Pharm Prophylaxis ordered?: Yes - Physical Exam General: Alert, Oriented x3, Cooperative HEENT: Atraumatic, PERRLA, EOMI, Normocephalic Neck: Supple, No JVD, Negative Carotid Bruits Lungs: Clear to auscultation, Normal air movement Cardiovascular: Regular rate, No murmurs Abdomen: Bowel Sounds Present, Soft, Non Tender Extremities: No edema, Capillary Refill Less than 3 Seconds Skin: No rashes, No breakdown, Incision - Right knee clean, dry, intact. Musculoskeletal: No Tenderness to Palpation of Joints or Extremities Neurological: Cranial nerves II-XII grossly intact Psych/Mental Status: Normal Affect, Appropriate Vital Signs Temp Pulse Resp BP Pulse Ox 99.5 F H 80 18 144/62 H 95 07/01/17 16:45 07/01/17 18:20 07/01/17 16:45 07/01/17 18:20 07/01/17 16:45 Oxygen Delivery Method Room Air Weight: 83.461 kg Body Mass Index (BMI) 33.8 Intake and Output for Last 24 Hours Intake Total 180 / 180 Output Total 150 / 150 Balance 30 / 30 Assessment/Plan 81 year old female with below past medical history hospitalized for right total knee arthroplasty 06/29/[address] Stallings, admitted to TCU for rehabilitation, strengthening, prior to discharge home alone. * Debility - PT/OT. * Pain - Tylenol 1000MG Q8H, Tramadol 50MG Q6H PRN moderate pain. * Bowel - Miralax 17GM daily, Senna/colace 2 tablets BID, Dulcolax 10MG PO daily PRN. * Pneumonia vaccination - Administer Prevnar 13 and/or Pneumovax 23 as necessary. * DVT prophylaxis - Aspirin 325MG BID. * GERD - Famotidine 20MG daily. * Hypothyroidism - Levothyroxine 150MCG daily. * Hypertension - Losartan 100MG daily, Metoprolol 25MG BID. * Osteoporosis - Evista 60MG daily. 07/03/1713 <Electronically signed by Arnaud Richardson MD> Date Arnaud Richardson MD Cosigner Signature: Date (if applicable) CC: Melvin Weber; Arnaud Richardson MD Signed CBC W/DIFF, AUTOMATED Collected: 07/02/2017 Status: F Source: GLO 6:12 AM [facility] REPOSITORY TYPE CODE TESTS RESULT OUT OF RANGE REFERENCE UNITS LAB L100.1000 4.4-11.0 K/mm3 Normal WBC 9.3 LAB L100.1200 4.2-5.4 M/mm3 Low RBC 3.18 LAB L100.1300 12.0-15.0 g/dl Low HGB 9.7 LAB L100.1400 37-47 % Low HCT 29.9 LAB L100.1500 81-99 fL Normal MCV 94.0 LAB L100.1600 27.0-32.0 pg Normal MCH 30.5 LAB L100.1700 32-36 g/gl Normal MCHC 32.4 LAB L100.1810 11.6-14.6 % Normal RDW CV 13.0 LAB L100.1820 35.1-43.9 fl Normal RDW SD 43.0 LAB L100.1900 150-450 K/mm3 Normal PLT 253 LAB L100.2000 6.2-12.0 fl Normal MPV 10.9 LAB L100.2100 47-70 % Normal NEUT% 70.0 LAB L100.2200 19-41 % Low LY% 18.2 LAB L100.2300 0-10 % Normal MONO% 8.4 LAB L100.2400 0-5 % Normal EO% 2.7 LAB L100.2500 0-1 % Normal BASO% 0.5 LAB L100.2550 0.0-0.9 % Normal IM GRAN % 0.200 Result Comment: IG% - Immature Granulocytes (promyelocytes, myelocytes and metamyelocytes) > 1% indicates that a LEFT SHIFT is Present. LAB L100.2620 2.0-7.7 X10 3/uL Normal Absolute Neut 6.5 LAB L100.2720 0.83-4.51 X10 3/ul Normal Absolute Lymph 1.68 Performed By: #### L100.0100 #### [facility] [address] [place], [place], [id number] BASIC METABOLIC Collected: 07/02/2017 Status: F Source: COEBURN PROFILE (BMP) 6:12 AM [facility] REPOSITORY TYPE CODE TESTS RESULT OUT OF RANGE REFERENCE UNITS LAB L501.0100 74-106 mg/dL Normal GLU 96 Result Comment: Please note revised GLUCOSE reference range effective 2017. LAB L501.1000 7-18 mg/dL Normal BUN 14 LAB L501.1100 0.55-1.02 mg/dL Normal CREAT,SERUM 0.73 Result Comment: The validity of the calculated GFR AND GFRAA in patients over 70 years has not been determined. Clinical correlation is essential. LAB L501.1110 >60 mL/min Normal EST GFR 81 Result Comment: Non- GFR Calc LAB L501.1115 >60 mL/min Normal EST GFR - AA 98 Result Comment: GFR Calc LAB L501.1255 ml/min Normal Estimated CRCL 33.29 LAB L501.1300 10-20 RATIO Normal BUN/CRE 19.2 LAB L501.2200 8.5-10 mg/dL Low .1 CA 8.0 LAB L501.5300 136-14 mmol/L Normal 5 NA 140 LAB L501.5600 3.5-5. mmol/L Normal 1 K 3.9 LAB L501.5900 98-107 mmol/L High CL 108 LAB L501.6100 21.0-3 mmol/L Normal 2.0 CO2 26.0 LAB L501.6200 5-15 Normal GAP 6 Performed By: #### L500.2500 #### [facility] [address] [place], [address] URINALYSIS, COMPLETE Collected: 07/01/2017 Status: F Source: GLO 8:40 PM [facility] REPOSITORY Order Comment: How was Urine Obtained? CATHETER SPECIMEN TYPE CODE TESTS RESULT OUT OF RANGE REFERENCE UNITS LAB L400.3000 Yellow COLOR Normal Yellow LAB L400.3050 Clear Normal CLARITY Sl. Cloudy LAB L400.3200 Normal mg/dl Normal GLUCOSE, UR Normal LAB L400.3300 Negative mg/dL Normal BILIRUBIN URINE Negative LAB L400.3400 Negative mg/dl Normal KETONE UR Negative LAB L400.3465 1.002-1.030 Normal SP.GR. DIPSTX 1.025 LAB L400.3550 5.0 - 8.0 pH UR Normal 5.0 LAB L400.3600 Negative mg/dl High PROT 30 DIPSTX LAB L400.3700 Normal mg/dl Normal UROBILI Normal LAB L400.3750 Negative Normal NITRITE UR Negative LAB L400.3780 Negative /ul High 10 OCCULT BLOOD-UR LAB L400.3800 Negative /ul High LEUK 25 ESTERASE LAB L400.4050 0-5 /hpf WBC Normal 0-5 SEEN LAB L400.4100 0-5 /hpf Normal RBC-UA 0-5 SEEN LAB L400.4150 5-10 /hpf SQUAM Normal EPI 0-5 SEEN LAB L400.4300 None Seen /hpf 0 Normal BACTERIA SEEN LAB L400.4350 <or=2+ /hpf 0 Normal MUCUS, URINE SEEN Performed By: #### L400.0001 #### [facility] [place], [address] Observed: 07/01/2017 Status: F Source: GLO CULTURE, URINE 8:40 PM [facility] REPOSITORY Urine Culture Culture exhibits no growth. Performed By: #### M100.0650 #### [facility] [address] [facility] [address] [facility] [address] [place], [address] CBC-COMPLETE BLOOD CNT Collected: 07/01/2017 Status: F Source: GLO NO DIFF 5:50 AM [facility] REPOSITORY TYPE CODE TESTS RESULT OUT OF RANGE REFERENCE UNITS LAB L100.1000 4.4-11.0 K/mm3 High WBC 11.1 LAB L100.1200 4.2-5.4 M/mm3 Low RBC 3.54 LAB L100.1300 12.0-15.0 g/dl Low HGB 10.7 LAB L100.1400 37-47 % Low HCT 33.2 LAB L100.1500 81-99 fL Normal MCV 93.8 LAB L100.1600 27.0-32.0 pg Normal MCH 30.2 LAB L100.1700 32-36 g/gl Normal MCHC 32.2 LAB L100.1810 11.6-14.6 % Normal RDW CV 13.1 LAB L100.1820 35.1-43.9 fl Normal RDW SD 43.3 LAB L100.1900 150-450 K/mm3 Normal PLT 245 LAB L100.2000 6.2-12.0 fl Normal MPV 11.0 Performed By: #### L100.0500 #### [facility] [address] [facility] [place], [address] DISCHARGE INSTRUCTION Observed: 06/30/2017 Status: F Source: COEBURN 7:37 AM [facility] REPOSITORY [facility] Medical Records Department [address] [place] [address] Instructions for Home/Discharge Instructions 06/30/17 0736 MR#: [id number] Acct: [id number] Name: SG VELASCO Rep #: [id number] : 1935 81 From: Martha Reynolds PCP: Melvin Weber Status: ADM IN Discharge Diet: No Restrictions Discharge Activity: May Not Drive, May not drive while taking narcotic pain medications., Use Walker May shower in (days): 2 - Okay to shower over Mepilex dressing Ice area for (Minutes): 20 - every hour while awake. Weight Bearing Status: Weight bearing as tolerated Elevate: Operative Extremity Additional Activity Instructions:: Wear elastic stockings for 2 weeks after your surgery. See postoperative pink sheet Call your doctor if your incision/area has: Continuous Slow Oozing, Sudden Increased Bleeding, Increased Pain/ Swelling, Increased Redness, Foul Smelling Discharge Call your doctor if you observe: Fever of 101 or Higher, Coldness, Increased Pain, Numbness or Tingling, Change in Color, Chest pain, Calf discomfort, Uncontrolled pain Remove Dressing in (days):: 5 Cleanse incision/area with: Soap AND Water Additional Dressing/Incision Instructions:: See postoperative pink sheet Allergies/Adverse Reactions: Allergies Penicillins Allergy (Verified 06/07/17 09:50) Unknown Medications to take at Discharge Levothyroxine [Synthroid] 150 mcg PO DAILY 05/15/15 Metoprolol Tartrate [Lopressor (beta guy)] 25 mg PO BID 05/15/15 Raloxifene HCl [Evista] 60 mg PO DAILY 06/07/17 losartan 100 mg tablet 100 mg PO QDAY 06/19/17 Acetaminophen [Tylenol] 1,000 mg PO Q8 tablet 06/30/17 Aspirin 325 mg PO BIDCM tablet 06/30/17 Famotidine [Pepcid] 20 mg PO DAILY tablet 06/30/17 Oxycodone [Oxyir] 5 - 10 mg PO Q4H PRN PRN 7 Days #56 tab 06/30/17 Senna/Docusate Sodium [Senokot-S] 2 tablet PO BID tablet 06/30/17 The following prescriptions were given: Oxycodone [Oxyir] 5 - 10 mg PO Q4H PRN PRN 7 Days #56 tab PRN Reason: Mod-Severe Pain (4-02/21) Primary Care Physician: Melvin Weber [Primary Care Provider] - Proposed Discharge Date: 07/01/17 06/30/17 0737 <Electronically signed by Martha Reynolds > Date Martha Reynolds CC: Melvin Weber CBC-COMPLETE BLOOD CNT Collected: 06/30/2017 Status: F Source: GLO NO DIFF 5:12 AM [facility] REPOSITORY TYPE CODE TESTS RESULT OUT OF RANGE REFERENCE UNITS LAB L100.1000 4.4-11.0 K/mm3 Normal WBC 9.5 LAB L100.1200 4.2-5.4 M/mm3 Low RBC 3.52 LAB L100.1300 12.0-15.0 g/dl Low HGB 10.7 LAB L100.1400 37-47 % Low HCT 32.9 LAB L100.1500 81-99 fL Normal MCV 93.5 LAB L100.1600 27.0-32.0 pg Normal MCH 30.4 LAB L100.1700 32-36 g/gl Normal MCHC 32.5 LAB L100.1810 11.6-14.6 % Normal RDW CV 13.0 LAB L100.1820 35.1-43.9 fl Normal RDW SD 43.0 LAB L100.1900 150-450 K/mm3 Normal PLT 247 LAB L100.2000 6.2-12.0 fl Normal MPV 10.7 Performed By: #### L100.0500 #### [facility] [address] [place], [address] BASIC METABOLIC Collected: 06/30/2017 Status: F Source: COEBURN PROFILE (BMP) 5:12 AM [facility] [facility]POS[facility] TYPE CODE TESTS RESULT OUT OF RANGE REFERENCE UNITS LAB L501.0100 74-106 mg/dL High GLU 114 Result Comment: Fasting Glucose result from 100 to 125 mg/dL suggests IMPAIRED HOMEOSTASIS per A.D.A. criteria. Please note revised GLUCOSE reference range effective 2017. LAB L501.1000 7-18 mg/dL Normal BUN 14 LAB L501.1100 0.55-1.02 mg/dL Normal CREAT,SERUM 0.88 Result Comment: The validity of the calculated GFR AND GFRAA in patients over 70 years has not been determined. Clinical correlation is essential. LAB L501.1110 >60 mL/min Normal EST GFR 65 Result Comment: Non- GFR Calc LAB L501.1115 >60 mL/min Normal EST GFR - AA 79 Result Comment: GFR Calc LAB L501.1255 ml/min Normal Estimated CRCL 39.65 LAB L501.1300 10-20 RATIO Normal BUN/CRE 15.9 LAB L501.2200 8.5-10 mg/dL Low .1 CA 8.2 LAB L501.5300 136-14 mmol/L Normal 5 NA 141 LAB L501.5600 3.5-5. mmol/L Normal 1 K 4.2 LAB L501.5900 98-107 mmol/L Normal CL 107 LAB L501.6100 21.0-3 mmol/L Normal 2.0 CO2 28.0 LAB L501.6200 5-15 Normal GAP 6 Performed By: #### L500.2500 #### [facility] [address] [place], [address] KNEE 1 OR 2 VIEWS Observed: 06/29/2017 Status: F Source: GLO 11:51 AM [facility] REPOSITORY [facility] Imaging Services [address] [place] [address] Knee 1 or 2 Views MR#: [id number] Acct: [id number] Name: SG VELASCO Rep #: [id number] : 1935 F 81 From: Arnaldo Rosenthal MD PCP: Melvin Weber Status: ADM IN Study: Knee 1 or 2 Views Date of Exam: 06/29/17 Exam# [id number] Ordering Dr: Jhon Stallings MD STUDY: X-RAY - RIGHT KNEE REASON FOR EXAM: Female, 81 years old. Total knee replacement. TECHNIQUE: AP and lateral view(s) of the knee. COMPARISON: Comparison is made with prior study dated October 17, 2016. FINDINGS: Normal visualized distal femur. Normal visualized proximal tibia and fibula. Normal proximal tibiofibular articulation. The patient is status post total knee replacement. There is good alignment. Postoperative soft tissue changes. RAD/Knee 1 or 2 Views IMPRESSION: Status post total knee replacement. There is good alignment. Postoperative soft tissue changes. Electronically Signed: Arnaldo Rosenthal MD at 14:51 EST Tel [phone], Service support , CC: Melvin Weber; Jhon Stallings MD Cooking Show Host: Signed 12 LEAD ELECTROCARDIOGRAM Observed: 06/13/2017 Status: F Source: GLO 10:00 AM [facility] REPOSITORY [facility] Cardiovascular Services [address] [place] [address] [place] [facility] [place] 1036 MR#: [id number] Acct: [id number] Name: SG VELASCO Rep #: [id number] : 1935 81 From: Arpit Dover MD Attending Dr: Jhon Stallings MD Status: PRE IN Ordering Dr: Jhon Stallings MD Date: 06/07/17 [place] [facility] [place]: F C Admitted: Test Reason : Blood Pressure : / mmHG Vent. Rate : 071 BPM Atrial Rate : 071 BPM P-R Int : 200 ms QRS Dur : 078 ms QT Int : 408 ms P-R-T Axes : 064 012 066 degrees QTc Int : 443 ms Normal sinus rhythm Normal ECG Confirmed by ARPIT DOVER ([id number]), editor news ISAAC BAEZ ([id number]) on 06/13/2017 10:00:36 AM Referred By: Jhon Stallings Confirmed By:ARPIT DOVER 06/13/17 1000 Date Arpit Dover MD CC: Jhon Stallings MD; Melvin Weber MD Date Dictated: 06/07/17 103 Date Transcribed: 06/07/17 103 Cooking Show Host: Signed CBC-COMPLETE BLOOD CNT Collected: 06/07/2017 Status: F Source: GLO NO DIFF 10:45 AM [facility] REPOSITORY TYPE CODE TESTS RESULT OUT OF RANGE REFERENCE UNITS LAB L100.1000 4.4-11.0 K/mm3 Normal WBC 7.6 LAB L100.1200 4.2-5.4 M/mm3 Low RBC 4.08 LAB L100.1300 12.0-15.0 g/dl Normal HGB 12.2 LAB L100.1400 37-47 % Normal HCT 37.4 LAB L100.1500 81-99 fL Normal MCV 91.7 LAB L100.1600 27.0-32.0 pg Normal MCH 29.9 LAB L100.1700 32-36 g/gl Normal MCHC 32.6 LAB L100.1810 11.6-14.6 % Normal RDW CV 13.4 LAB L100.1820 35.1-43.9 fl High RDW SD 44.8 LAB L100.1900 150-450 K/mm3 Normal PLT 285 LAB L100.2000 6.2-12.0 fl Normal MPV 10.5 Performed By: #### L100.0500 #### [facility] [address] [place], [place], [id number] BASIC METABOLIC Collected: 06/07/2017 Status: F Source: GLO PROFILE (BMP) 10:45 AM [facility] REPOSITORY TYPE CODE TESTS RESULT OUT OF RANGE REFERENCE UNITS LAB L501.0100 70-110 mg/dL Normal GLU 92 LAB L501.1000 7-18 mg/dL Normal BUN 16 LAB L501.1100 0.55-1.02 mg/dL Normal 0.94 CREAT,SERUM Result Comment: The validity of the calculated GFR AND GFRAA in patients over 70 years has not been determined. Clinical correlation is essential. LAB L501.1110 >60 mL/min Normal EST GFR 60 Result Comment: Non- GFR Calc LAB L501.1115 >60 mL/min Normal EST GFR - AA 73 Result Comment: GFR Calc LAB L501.1255 ml/min Normal Estimated CRCL 37.12 LAB L501.1300 10-20 RATIO Normal BUN/CRE 16.9 LAB L501.2200 8.5-10 mg/dL Normal .1 CA 8.8 LAB L501.5300 136-14 mmol/L Normal 5 NA 141 LAB L501.5600 3.5-5. mmol/L Normal 1 K 4.1 LAB L501.5900 98-107 mmol/L Normal CL 106 LAB L501.6100 21.0-3 mmol/L Normal 2.0 CO2 26.0 LAB L501.6200 5-15 Normal GAP 9 Performed By: #### L500.2500, L501.9520 #### [facility] [address] [place], [place], [address] THYROID STIM HORMONE Collected: 06/07/2017 Status: F Source: GLO (TSH) 10:45 AM [facility] REPOSITORY TYPE CODE TESTS RESULT OUT OF RANGE REFERENCE UNITS LAB L501.9520 0.358-3.74 uIU/mL High TSH 5.80 Performed By: #### L500.2500, L501.9520 #### [facility] [address] [place], [address] Observed: 06/07/2017 Status: F Source: GLO MRSA/SAID SCREEN 10:45 AM [facility] REPOSITORY MRSA/SAID SCRN S. AUREUS S. aureus Positive MRSA MRSA Negative Performed By: #### M100.651 #### [facility] [address] [place], [address] ALLERGIES ALLERGIES DATE TYPE / CODE NAME / CODE REACTION SEVERITY SOURCE 12/15/2017 Drug Penicillins/ Unknown Unknown [facility] Allergy/4160 [id number]([facility] 16586(SNOMED XNORM) Repository CT) ENCOUNTERS ENCOUNTERS ADMIT/DISCHARGE ACCOUNT ADMITTING ENCOUNTER LOCATION SOURCE NUMBER CLASS 04/16/2018 [id number] Ambulatory [place] 6 [facility] ing:MTLAB Repository 03/27/2018/ [id number] Ambulatory [place] 8 8 [facility] ing:MTLAB Repository 02/19/2018/ [id number] Ambulatory [place] 8 4 [facility] ing:MTLAB Repository 01/26/2018/ [id number] Ambulatory [place] 8 9 [facility] ing:MTLAB Repository 01/08/2018 [id number] Ambulatory [place] 3 [facility] ing:MTLAB Repository 01/01/2018/ [id number] Ambulatory [place] 8 3 [facility] ing:MTLAB Repository 12/15/2017/ [id number] Emergency [place] 8 6 [facility] ing:ED Repository 12/15/2017 [id number] Ambulatory BMSBuilding:B [place] 6 [facility] Repository 11/30/2017 [id number] Ambulatory [place] 5 [facility] ing:OLS[facility] Repository C 11/20/2017/ [id number] ROSA DENISE Inpatient UNIBuilding:S [place] 8 9 D Encounter DNORTHRoom: [facility] 2222Bed: A Hospital Repository 11/17/2017/ [id number] Emergency [place] 8 9 [facility] ing:ED Repository 11/17/2017/ [id number] Ambulatory BMSBuilding:B [place] [address] Repository 08/04/2017/ [id number] Ambulatory [place] 8 0 [facility] ing:PT Repository 07/01/2017/ [id number] Arnaud Richardson Chi Inpatient [place] 8 7 Encounter [facility] ing:TCURoom: Repository CXN10Hds: 1 06/29/2017/ [id number] Jhon Stallings Inpatient [place] 8 7 Encounter [facility] ing:AF0Evjs: Repository PE143Fpf: 1 06/19/2017 [id number] Ambulatory BMSBuilding:B [place] 6 [facility] Repository 06/07/2017 [id number] Ambulatory BMSBuilding:W [place] 5 [facility] Repository PAYERS PAYERS ENCOUNTER GUARANTOR PAYER SUBSCRIBER SOURCE 04/16/2018 SG Cody [id number] S Insurance:AETNA GESLDOB: [facility] Number: [id number] [id number] Repository [address]Ybt: (330) Date:5328-30-79[phone] ( [id number] [place] [address]XD: 04/16/2018 Secondary NOT GIVENUNK [place] Insurance:SELF PAY [facility] Number: Effective Repository Date:2018-04-16 03/27/2018 SG Cody [id number] S Insurance:AETNA GESSELDOB: [facility] Number: [id number], [place] [id number] Repository [address]Ade: (330) Date:0984-68-16BM [phone] (HP) [id number] [place] [address]HL: 03/27/2018 Secondary NOT GIVENUNK [place] Insurance:SELF PAY [facility] Number: Effective Repository Date:2018-03-15 02/19/2018 SG J Primary SG J [place] [id number] S Insurance:AETNA GESSELDOB: [place] MCRPolicy Number: [id number], [place] [id number] Repository [address]Bwn: (330) Date:5002-84-14ZG [phone] (HP) [id number] [place] [address]NQ: 02/19/2018 Secondary NOT GIVENUNK [place] Insurance:SELF PAY [facility] Number: Effective Repository Date:2018-02-13 01/26/2018 SG J Primary SG J [place] [id number] S Insurance:AETNA GESSELDOB: [place] MCRPolicy Number: [id number], [place] [id number] Repository [address]Fzd: (330) Date:9515-19-57YP [phone] (HP) [id number] [place] [address]JX: 01/26/2018 Secondary NOT GIVENUNK [place] Insurance:SELF PAY [facility] Number: Effective Repository Date:2018-01-17 01/08/2018 SG J Primary SG J [place] [id number] S Insurance:AETNA GESSELDOB: [place] MCRPolicy Number: [id number], [place] [id number] Repository [address]Gik: (330) Date:4786-44-54PR [phone] (HP) [id number] [place] [address]OV: 01/08/2018 Secondary NOT GIVENUNK [place] Insurance:SELF PAY [facility] Number: Effective Repository Date:2018-01-08 01/01/2018 SG Miles Primary SG Miles [place] [id number] S Insurance:AETNA GESSELDOB: [place] MCRPolicy Number: [id number], [place] [id number] Repository [address]Fxh: (330) Date:8294-12-88KF [phone] () [id number] [place] [address]ZV: 01/01/2018 Secondary NOT GIVENUNK [place] Insurance:SELF PAY [facility] Number: Effective Repository Date:2017-12-19 12/15/2017 Sg J Primary Sg Miles [place] [id number] S Insurance:AETNA GesselDOB: [facility] [place] [facility] Number: [id number], [place] [id number] Repository [address]Upq: (330) Date:9182-10-07FI [phone] (HP) [id number] [place] [address]NX: 12/15/2017 Secondary NOT GIVENUNK [place] Insurance:SELF PAY [facility] Number: Effective Repository Date:2017-12-15 12/15/2017 Sg Miles Primary Sg Miles [place] [id number] S Insurance:AETNA GesselDOB: [place] [facility] Number: [id number], [place] [id number] Repository [address]Yta: (330) Date:1902-45-83YX [phone] (HP) [id number] [place] [address]BX: 12/15/2017 Secondary NOT GIVENUNK [place] Insurance:SELF PAY [facility] Number: Effective Repository Date:2017-12-15 11/30/2017 SG Miles Primary NOT GIVENUNK [place] [id number] S Insurance:SELF PAY [place] Number: Effective Repository [address]Sdq: (330) Date:2017-11-30 [phone] (HP) 11/20/2017 SG Primary SG [facility] [id number] S Insurance:AETNA GESSELUNK Hospital [place] MEDICARE[place] Number: [id number]: (330) [id number] [phone] (HP) Date:[id number] [place] [address]MS: 11/17/2017 SG Miles Primary SG J [place] [id number] S Insurance:[facility] Number: [id number], [place] [id number] Repository [address]Cyt: (330) Date:6404-74-57UK [phone] (HP) [id number] [place] [address]XE: 11/17/2017 Secondary NOT GIVENUNK [place] Insurance:SELF PAY [facility] Number: Effective Repository Date:2017-11-17 11/17/2017 SG J Primary SG Jd [place] [id number] S Insurance:AETNA GESSELDOB: [facility] Number: [id number], [place] [id number] Repository [address]Buk: (330) Date:3544-05-44AC [phone] (HP) 740449PJBIG [place] [address]OY: 11/17/2017 Secondary NOT GIVENUNK [place] Insurance:SELF PAY [facility] Number: Effective Repository Date:2017-11-17 08/04/2017 Sg J Primary Sg J [place] [id number] S Insurance:AETNA GesselDOB: [facility] Number: [id number] [id number] Repository [address]Qbz: (330) Date:6477-51-07RE [phone] (HP) 848168LJZEESHAN [place] [address]BE: 08/04/2017 Secondary NOT GIVENUNK [place] Insurance:SELF PAY [facility] Number: Effective Repository Date:2017-07-07 07/01/2017 Sg J Primary Sg J [place] [id number] S Insurance:AETNA GesselDOB: [place] MCRPolicy Number: [id number] [place] [id number] Repository [address]Hcn: (330) Date:8945-96-07ZP [phone] (HP) 618441VDZEESHAN ROBIN [address]DF: 07/01/2017 Secondary NOT GIVENUNK [place] Insurance:SELF PAY [facility] Number: Effective Repository Date:2017-07-01 06/29/2017 Sg J Primary Sg J [place] [id number] S Insurance:AETNA GesselDOB: [place] MCRPolicy Number: [id number] [place] [id number] Repository [address]Tdu: (330) Date:7419-83-14OJ [phone] (HP) 625763JCZEESHAN ROBIN [address]OG: 06/29/2017 Secondary NOT GIVENUNK [place] Insurance:SELF PAY [facility] Number: Effective Repository Date:2017-04-04 06/19/2017 Sg J Primary NOT GIVENUNK [place] [id number] S Insurance:SELF PAY [facility] [place] Number: Effective Repository [address]Aob: (330) Date:2017-06-19 [phone] (HP) 06/07/2017 Sg J Primary Sg J [place] [id number] S Insurance:AETNA GesselDOB: [place] MCRPolicy Number: [id number] Surgical Hospital[place] [id number] Repository [address]Jes: (330) Date:7107-89-45HL [phone] ( [id number] [place]AN [place] [address]KH: 06/07/2017 Secondary NOT GIVENUNK [place] Insurance:SELF PAY [facility] Number: Effective Repository Date:2017-06-07
== END 2018-04-16 09:00 | disposition home or self-care (01) ==
LOC: MTLAB 08:45
PROVIDERS: Internal Medicine Cardiovascular Disease; Referring Provider Family Medicine; Visit Provider Family Medicine
DX: Z79.01 Long term (current) use of anticoagulants (principal)
CPT/HCPCS: 36415; 85610

== ENCOUNTER → 2018-05-21 08:13 | Outpatient (CLI) | payer MEDICARE, SELFPAY ==
[2018-05-21 10:35] LABS: Absolute Lymphocyte Count 1.57 X10^3/ul (0.83-4.51); Absolute Neutrophil Count 3.7 X10^3/uL (2.0-7.7); Basophil# 0.03 X10^3/uL; Basophil% 0.5 % (0-1); Eosinophil# 0.24 X10^3/uL; Eosinophils% 3.9 % (0-5); Hematocrit 33.9 % (37-47); Hemoglobin 10.8 g/dl (12.0-15.0); Lymphocyte # 1.57 X10^3/ul (4.0); Lymphocyte % 25.2 % (19-41); Mean Corp Hgb Conc 31.9 g/gl (32-36); Mean Corpuscular Hgb 28.4 pg (27.0-32.0); Mean Corpuscular Volume 89.2 fL (81-99); Mean Platelet Vol. 9.8 fl (6.2-12.0); Monocyte# 0.69 X10^3/uL; Monocyte% 11.1 % (0-10); Neutrophil # 3.68 X10^3/uL (2.7-7.7); Neutrophil % 59.1 % (47-70); POSITIVE COUNT NO; POSITIVE DIFFERENTIAL NO; POSITIVE MORPHOLOGY NO; Platelet Count 395 K/mm3 (150-450); RBC Distribution Width CV 14.2 % (11.6-14.6); RBC Distribution Width SD 46.1 fl (35.1-43.9); White Blood Count 6.2 K/mm3 (4.4-11.0)
[2018-05-21 11:04] LABS: ALB/GLOB Ratio 0.8 RATIO (0.9-2.4); AST(SGOT) 16 U/L (15-37); Alanine Aminotransfer ALT/SGPT 12 U/L (13-56); Alkaline Phosphatase 72 U/L (45-117); Anion Gap 9 (5-15); BUN 10 mg/dL (7-18); BUN/Creat Ratio 11.5 RATIO (10-20); Calcium,Total 8.5 mg/dL (8.5-10.1); Chloride 106 mmol/L (98-107); Cholesterol 186 mg/dL (200); Creatinine, Serum 0.87 mg/dL (0.55-1.02); EST Glomerular Filtration Rate 66 mL/min (>60); Est Glom Filt Rate - Afr Amer 80 mL/min (>60); Glucose 100 mg/dL (74-106); High Density Lipoprotein 37 mg/dL; Potassium 4.1 mmol/L (3.5-5.1); Sodium Level 141 mmol/L (136-145); Thyroid Stim Hormone (TSH) 6.47 uIU/mL (0.358-3.74); Triglycerides 174 mg/dL; Very Low Density Lipoprotein 35 mg/dL (5-40)
== END ==
PROVIDERS: Referring Provider Family Medicine; Visit Provider Family Medicine
DX: I10 Essential (primary) hypertension (principal); E78.00 Pure hypercholesterolemia, unspecified; E03.9 Hypothyroidism, unspecified; Z79.01 Long term (current) use of anticoagulants
CPT/HCPCS: 36415; 80053; 80061; 84443; 85025

== ENCOUNTER → 2018-05-29 13:32 | Outpatient (CLI) | payer MEDICARE, SELFPAY ==
--- NOTE | 2018-05-29 13:34 | RAD_ITS ---
STUDY: X-RAY CHEST REASON FOR EXAM: Female, 82 years old. Chest pain, history of lung nodule TECHNIQUE: PA and lateral views of the chest. COMPARISON: 01/08/2018 FINDINGS: Stable scattered granulomatous calcifications in the right lung base The lungs are clear and expanded. There is no demonstrated pleural abnormality. Normal size heart. Normal mediastinum and danii. Normal visualized pulmonary arteries. Normal visualized aortic arch and descending thoracic aorta. Normal visualized thoracic spine. Normal visualized ribs, clavicles, and shoulders. There is no demonstrated abnormality of the visualized soft tissue structures of the upper abdomen. RAD/Chest PA and Lateral IMPRESSION: No acute pulmonary process Electronically Signed: Sai Esqueda MD at 13:31 EST , Service support ,
== END ==
PROVIDERS: Referring Provider Internal Medicine Pulmonary Disease; Visit Provider Internal Medicine Pulmonary Disease
DX: R91.1 Solitary pulmonary nodule (principal)
CPT/HCPCS: 71046

== ENCOUNTER 2018-06-11 07:53 | Outpatient (RCR) | payer MEDICARE, SELFPAY ==
[2018-05-24 10:37] LABS: International Normalized Ratio 1.6; Prothrombin Time (Protime)PT. 19.2 SECONDS (11.7-14.9)
[2018-06-11 10:29] LABS: International Normalized Ratio 3.4; Prothrombin Time (Protime)PT. 34.6 SECONDS (11.7-14.9)
== END 2018-06-11 09:00 | disposition home or self-care (01) ==
LOC: MTLAB 07:53
PROVIDERS: Referring Provider Family Medicine; Visit Provider Family Medicine
DX: Z79.01 Long term (current) use of anticoagulants (principal)
CPT/HCPCS: 36415; 85610

== ENCOUNTER 2018-06-13 13:03 | Emergency (ER) | payer MEDICARE, SELFPAY ==
[2018-06-13 13:06] VITALS: BP 115/52; PULSE 18; RESP 82; TEMP 36.6; O2SAT 94; BMI 32.1
--- NOTE | 2018-06-13 13:26 | EKG12_ITS ---
Test Reason : WEAKNESS Blood Pressure : / mmHG Vent. Rate : 079 BPM Atrial Rate : 079 BPM P-R Int : 168 ms QRS Dur : 076 ms QT Int : 414 ms P-R-T Axes : 047 -23 034 degrees QTc Int : 474 ms Normal sinus rhythm Normal ECG Confirmed by NANDA MARKS MD ([id number]), graphics editor ISAAC BAEZ ([id number]) on 06/15/2018 3:12:39 PM Referred By: Melvin Weber Confirmed By:NANDA MARKS MD
--- NOTE | 2018-06-13 13:30 | RAD_ITS ---
STUDY: X-RAY CHEST REASON FOR EXAM: Female, 82 years old. Shortness of breath, fever and weakness. TECHNIQUE: Single AP portable view of the chest. COMPARISON: Comparison is made with prior study dated May 29, 2018. FINDINGS: I suspect a 2 cm x 1.9 cm nodular density in the left upper lobe. Follow-up is recommended. Scattered calcified granulomas. There is no demonstrated pleural abnormality. Normal size heart. Normal mediastinum and danii. Normal visualized pulmonary arteries. There is atherosclerotic calcification of the aortic arch with tortuosity. Normal visualized thoracic spine. There is degenerative osteoarthritis of the bilateral shoulders. There is no demonstrated abnormality of the visualized soft tissue structures of the upper abdomen. RAD/Chest 1 View (Portable) IMPRESSION: I suspect a 2 cm x 1.9 cm nodule in the left upper lobe. Follow-up is recommended. Electronically Signed: Arnaldo Rosenthal MD at 13:49 EST , Service support ,
[2018-06-13 13:47] VITALS: O2SAT 94
[2018-06-13] MEDS: 0.9% Normal Saline 1,000 ML 1000 ML IV (13:47)
[2018-06-13 13:48] LABS: Absolute Lymphocyte Count 0.74 X10^3/ul (0.83-4.51); Absolute Neutrophil Count 7.7 X10^3/uL (2.0-7.7); Basophil# 0.03 X10^3/uL; Basophil% 0.3 % (0-1); Eosinophil# 0.02 X10^3/uL; Eosinophils% 0.2 % (0-5); Hematocrit 34.1 % (37-47); Hemoglobin 10.9 g/dl (12.0-15.0); Lymphocyte # 0.74 X10^3/ul (4.0); Lymphocyte % 7.9 % (19-41); Mean Corpuscular Hgb 28.8 pg (27.0-32.0); Mean Platelet Vol. 10.2 fl (6.2-12.0); Monocyte# 0.84 X10^3/uL; Neutrophil # 7.73 X10^3/uL (2.7-7.7); Neutrophil % 82.4 % (47-70); POSITIVE COUNT NO; POSITIVE DIFFERENTIAL NO; POSITIVE MORPHOLOGY NO; Platelet Count 385 K/mm3 (150-450); RBC Distribution Width CV 14.1 % (11.6-14.6); RBC Distribution Width SD 45.1 fl (35.1-43.9); Red Blood Count 3.79 M/mm3 (4.2-5.4); White Blood Count 9.4 K/mm3 (4.4-11.0)
[2018-06-13 14:01] LABS: Color, Urine Yellow (Yellow); Glucose, Dipstick Normal (Normal); Ketone-Dipstick 15 mg/dl (Negative); Leukocyte Esterase-Dipstick 25 /ul (Negative); Nitrite-Dipstick Negative (Negative); Occult Blood-Urine 25 /ul (Negative); Protein-Dipstick 15 mg/dl (Negative); Urine Bilirubin Dipstick Negative (Negative); Urine Clarity Sl. Cloudy (Clear); Urine Urobilinogen 1 mg/dl (Normal)
[2018-06-13 14:10] LABS: Mucous, Urine 2+ /hpf (<or=2+); Red Blood Cells-Urine 0-5 SEEN /hpf (0-5); Squamous Epithelial Cells - UA 0-5 SEEN /hpf (5-10); White Blood Cells 0-5 SEEN /hpf (0-5)
[2018-06-13 14:11] LABS: Bacteria 1+ /hpf (None Seen)
[2018-06-13 14:14] LABS: Lactic Acid 1.5 mmol/L (0.4-2.0)
[2018-06-13 14:17] LABS: Anion Gap 9 (5-15); BUN 19 mg/dL (7-18); BUN/Creat Ratio 13.1 RATIO (10-20); Calcium,Total 8.7 mg/dL (8.5-10.1); Chloride 104 mmol/L (98-107); Creatinine, Serum 1.45 mg/dL (0.55-1.02); EST Glomerular Filtration Rate 37 mL/min (>60); Est Glom Filt Rate - Afr Amer 44 mL/min (>60); Estimated Creatinine Clearance 23.66 ml/min; Glucose 123 mg/dL (74-106); Sodium Level 136 mmol/L (136-145)
[2018-06-13 15:15] VITALS: BP 128/58; PULSE 72; RESP 20; O2SAT 93
--- NOTE | 2018-06-13 15:21 | ED.VISSUMM ---
- ER Visit Summary Date of Service: 06/13/18 Chief Complaint: Sick History of Present Illness: The patient is a 82 F who has been sick for 3 days. She was having low-grade fevers on this past Monday. She was supposed to get steroid injections but they were canceled because of the low-grade fevers. Yesterday she saw her PCP. She had dark urine but no sign of infection. Today her daughter called her and she was not answering the phone. Her daughter went over to her house. She lives alone. She was sitting slouched in her chair and had been there all night. She was incontinent of urine and she had a fever of 101.5. She required some help to get up. She had some mild shortness of breath but no cough or other respiratory symptoms. No chest pain. No body aches. No nausea, vomiting, or diarrhea. No abdominal pain. No joint pains or rashes. Physical Examination: Afebrile and vital signs unremarkable. Patient is alert and oriented. No acute distress. Heart is regular rate and rhythm. Lungs are clear. Abdomen soft and nontender. Extremities nontender with no edema. Skin is normal in color without rash. Test Results: EKG showed sinus rhythm at a rate of 79. Hemoglobin 10.9, otherwise CBC normal. Glucose 123, BUN 19, creatinine 1.45. Urinalysis unremarkable. Troponin normal. Lactate normal. Chest x-ray unremarkable except for a left upper lobe nodule. Emergency Department Course and Treatment: Patient presented with a fever and urinary incontinence. She had Tylenol prior to arrival, but is afebrile now. Her vital signs are otherwise unremarkable. The patient states that her symptoms are gone now. She feels fine. Given her age and symptoms, I did check a workup. Her EKG, chest x-ray, and labs were all fairly unremarkable. She is a little bit dry but has had elevated creatinine in the past. She is anemic. Lactate normal. No signs of sepsis. Urinalysis unremarkable. Patient had a lung nodule, but is aware of that and her doctor is following it. Patient has no symptoms of influenza. On reevaluation, the patient has normal vital signs. She has no symptoms. She is alert and feels fine. She would like to go home. I advised her that there are risks going home versus being admitted. Patient would like to go home. She will return for any new or worsening issues. She will continue to stay hydrated. Take Tylenol as needed for fever. Return for any new or worsening issues. Her daughter will check on her at home. She will follow-up with her doctor later this week Treatment Plan: As above Disposition: Discharge Impression: 1. Brought illness This note was generated with Portalarium dictation software. It may contain incorrect words, spelling, and punctuation that were not noted in review of the chart prior to signing ED Disposition - Plan for ED Patient: Chief Complaint: Weakness Referrals: Melvin Weber [Primary Care Provider] -
--- NOTE | 2018-06-13 15:27 | ED.DEP ---
ED Disposition - Plan for ED Patient: Chief Complaint: Weakness Instructions: ED Fever Unconf Cause Referrals: Melvin Weber [Primary Care Provider] -
[2018-06-13 15:39] VITALS: PULSE 72; RESP 20; O2SAT 93
== END 2018-06-13 15:40 | disposition home or self-care (01) ==
PROVIDERS: Emergency Provider Emergency Medicine
DX: R50.9 Fever, unspecified (principal); Z87.440 Personal history of urinary (tract) infections
CPT/HCPCS: 71045; 80048; 81001; 83605; 84484; 85025; 93005; 99284; J7030; A4216

== ENCOUNTER 2018-07-03 08:25 | Outpatient (RCR) | payer MEDICARE, SELFPAY ==
[2018-07-03 10:26] LABS: International Normalized Ratio 2.8; Prothrombin Time (Protime)PT. 29.5 SECONDS (11.7-14.9)
== END 2018-07-12 14:52 | disposition home or self-care (01) ==
LOC: MTLAB 08:25
PROVIDERS: Referring Provider Family Medicine; Visit Provider Family Medicine
DX: Z79.01 Long term (current) use of anticoagulants (principal)
CPT/HCPCS: 36415; 85610

== ENCOUNTER 2018-07-16 13:26 | Outpatient (RCR) | payer MEDICARE, SELFPAY ==
[2018-07-16 15:13] LABS: International Normalized Ratio 2.5
== END 2018-07-16 14:00 | disposition home or self-care (01) ==
LOC: MTLAB 13:26
PROVIDERS: Referring Provider Family Medicine; Visit Provider Family Medicine
DX: Z79.01 Long term (current) use of anticoagulants (principal)
CPT/HCPCS: 36415; 85610

== ENCOUNTER 2018-08-13 07:14 | Outpatient (RCR) | payer MEDICARE, SELFPAY ==
[2018-08-13 10:14] LABS: International Normalized Ratio 2.3; Prothrombin Time (Protime)PT. 25.7 SECONDS (11.7-14.9)
== END 2018-09-11 16:00 ==
LOC: MTLAB 07:14
PROVIDERS: Referring Provider Family Medicine; Visit Provider Family Medicine
DX: Z79.01 Long term (current) use of anticoagulants (principal)
CPT/HCPCS: 36415; 85610

== ENCOUNTER 2018-09-12 08:36 | Outpatient (RCR) | payer MEDICARE, SELFPAY ==
[2018-09-12 10:10] LABS: International Normalized Ratio 2.1; Prothrombin Time (Protime)PT. 23.4 SECONDS (11.7-14.9)
== END 2018-09-12 10:00 | disposition home or self-care (01) ==
LOC: MTLAB 08:36
PROVIDERS: Referring Provider Family Medicine; Visit Provider Family Medicine
DX: Z79.01 Long term (current) use of anticoagulants (principal)
CPT/HCPCS: 36415; 85610

== ENCOUNTER 2018-10-15 07:54 | Outpatient (RCR) | payer MEDICARE, SELFPAY ==
[2018-10-15 11:02] LABS: International Normalized Ratio 2.2; Prothrombin Time (Protime)PT. 24.3 SECONDS (11.7-14.9)
== END 2018-10-15 08:00 | disposition home or self-care (01) ==
LOC: MTLAB 07:54
PROVIDERS: Referring Provider Family Medicine; Visit Provider Family Medicine
DX: Z79.01 Long term (current) use of anticoagulants (principal)
CPT/HCPCS: 36415; 85610

== ENCOUNTER 2018-11-12 07:40 | Outpatient (RCR) | payer MEDICARE, SELFPAY ==
[2018-11-12 10:14] LABS: Prothrombin Time (Protime)PT. 22.7 SECONDS (11.7-14.9)
== END 2018-12-12 06:36 | disposition home or self-care (01) ==
LOC: MTLAB 07:40
PROVIDERS: Referring Provider Family Medicine; Visit Provider Family Medicine
DX: Z79.01 Long term (current) use of anticoagulants (principal)
CPT/HCPCS: 36415; 85610

== ENCOUNTER → 2018-11-12 | Outpatient (CLI) | payer MEDICARE, SELFPAY ==
--- NOTE | 2018-11-12 08:15 | RAD_ITS ---
STUDY: X-RAY CHEST REASON FOR EXAM: Female, 83 years old. Cough. TECHNIQUE: Frontal and lateral views of the chest. COMPARISON: June 13, 2018 FINDINGS: Stable hyperexpansion with vague opacity in left upper lobe unchanged. Granulomatous calcifications unchanged. There is no demonstrated pleural abnormality. Borderline cardiomegaly unchanged. Normal mediastinum and danii. Normal visualized pulmonary arteries. Aortic tortuosity and calcification unchanged. Thoracic spondylosis with osteopenia and increased kyphosis unchanged. Normal visualized ribs, clavicles, and shoulders. There is no demonstrated abnormality of the visualized soft tissue structures of the upper abdomen. RAD/Chest PA and Lateral IMPRESSION: Stable cardiomegaly, hyperexpansion and vague opacity in left upper lobe. See discussion above. No acute finding. Electronically Signed: Roberto Handy MD at 16:49 EDT , Service support ,
== END | disposition home or self-care (01) ==
LOC: HPRAD 08:06
PROVIDERS: Referring Provider Internal Medicine Pulmonary Disease; Visit Provider Internal Medicine Pulmonary Disease
DX: R91.1 Solitary pulmonary nodule (principal); Z79.01 Long term (current) use of anticoagulants
CPT/HCPCS: 36415; 71046; 85610

== ENCOUNTER 2018-12-17 07:30 | Outpatient (RCR) | payer MEDICARE, SELFPAY ==
[2018-12-17 10:29] LABS: International Normalized Ratio 2.1; Prothrombin Time (Protime)PT. 23.4 SECONDS (11.7-14.9)
== END 2018-12-17 08:30 | disposition home or self-care (01) ==
LOC: MTLAB 07:30
PROVIDERS: Referring Provider Family Medicine; Visit Provider Family Medicine
DX: Z79.01 Long term (current) use of anticoagulants (principal)
CPT/HCPCS: 36415; 85610

== ENCOUNTER 2019-01-16 13:17 | Outpatient (RCR) | payer MEDICARE, SELFPAY ==
[2019-01-16 14:18] LABS: International Normalized Ratio 2.4; Prothrombin Time (Protime)PT. 25.9 SECONDS (11.7-14.9)
== END 2019-01-16 18:00 | disposition home or self-care (01) ==
LOC: MTLAB 13:17
PROVIDERS: Referring Provider Family Medicine; Visit Provider Family Medicine
DX: Z79.01 Long term (current) use of anticoagulants (principal)
CPT/HCPCS: 36415; 85610

== ENCOUNTER → 2019-01-28 | Outpatient (CLI) | payer MEDICARE, SELFPAY ==
[2019-01-28 08:30] LABS: EXAGEN MAILED SPECIMEN
[2019-01-28 10:03] LABS: Glucose, Dipstick Normal (Normal); Ketone-Dipstick 5 mg/dl (Negative); Leukocyte Esterase-Dipstick 500 /ul (Negative); Nitrite-Dipstick Negative (Negative); Occult Blood-Urine 50 /ul (Negative); Protein-Dipstick 30 mg/dl (Negative); Urine Bilirubin Dipstick Negative (Negative); Urine Clarity Sl. Cloudy (Clear); Urine Urobilinogen 1 mg/dl (Normal)
[2019-01-28 10:07] LABS: Absolute Lymphocyte Count 1.68 X10^3/uL (0.83-4.51); Absolute Neutrophil Count 4.3 X10^3/uL (2.0-7.7); Basophil# 0.05 X10^3/uL; Basophil% 0.7 % (0-1); Eosinophil# 0.27 X10^3/uL; Eosinophils% 3.8 % (0-5); Hematocrit 35.7 % (37-47); Lymphocyte # 1.68 X10^3/ul (4.0); Lymphocyte % 23.9 % (19-41); Mean Corp Hgb Conc 30.8 g/dL (32-36); Mean Corpuscular Hgb 28.3 pg (27.0-32.0); Mean Corpuscular Volume 91.8 fL (81-99); Mean Platelet Vol. 10.3 fl (6.2-12.0); Monocyte# 0.72 X10^3/uL; Monocyte% 10.2 % (0-10); NRBC Flagged by Analyzer 0 % (0-5); Neutrophil % 61.3 % (47-70); Platelet Count 446 K/mm3 (150-450); RBC Distribution Width CV 14.4 % (11.6-14.6); RBC Distribution Width SD 48.5 fl (35.1-43.9); Red Blood Count 3.89 M/mm3 (4.2-5.4)
[2019-01-28 10:10] LABS: Color, Urine SEE COMMENT BELOW (Yellow)
[2019-01-28 10:41] LABS: Protein, Urine (Random) 31.5 mg/dL (<11.9); Protein:Creat Ratio 127 mg/g CRE (0-200)
[2019-01-28 10:43] LABS: ALB/GLOB Ratio 0.7 RATIO (0.9-2.4); AST(SGOT) 16 U/L (15-37); Alanine Aminotransfer ALT/SGPT 16 U/L (13-56); Albumin, Serum 2.9 g/dL (3.2-5.0); Alkaline Phosphatase 72 U/L (45-117); Anion Gap 8 (5-15); BUN 12 mg/dL (7-18); BUN/Creat Ratio 11.9 RATIO (10-20); Calcium,Total 8.6 mg/dL (8.5-10.1); Chloride 106 mmol/L (98-107); Cholesterol 187 mg/dL (200); Creatinine, Serum 1.01 mg/dL (0.55-1.02); EST Glomerular Filtration Rate 56 mL/min (>60); Est Glom Filt Rate - Afr Amer 67 mL/min (>60); Globulin 4.1 g/dL (2.2-4.2); Glucose 96 mg/dL (74-106); High Density Lipoprotein 42 mg/dL; Potassium 3.7 mmol/L (3.5-5.1); Sodium Level 141 mmol/L (136-145); Thyroid Stim Hormone (TSH) 3.83 uIU/mL (0.358-3.74); Triglycerides 126 mg/dL; Very Low Density Lipoprotein 25 mg/dL (5-40)
[2019-01-28 11:17] LABS: Hepatitis B Surface Antibody Non-Reactive; Hepatitis B Surface Antigen Non-Reactive (Nonreactive); Hepatitis C Antibody Non-Reactive (Nonreactive)
[2019-01-29 10:39] LABS: Hepatitis B Core AB IgM Negative (Negative)
== END | disposition home or self-care (01) ==
LOC: MTLAB 07:29
PROVIDERS: Referring Provider Internal Medicine Rheumatology; Visit Provider Internal Medicine Rheumatology
DX: Z00.00 Encounter for general adult medical examination without abnormal findings (principal); M06.4 Inflammatory polyarthropathy; E03.9 Hypothyroidism, unspecified; N39.46 Mixed incontinence; R76.8 Other specified abnormal immunological findings in serum; M17.0 Bilateral primary osteoarthritis of knee; I48.91 Unspecified atrial fibrillation; I10 Essential (primary) hypertension; E78.5 Hyperlipidemia, unspecified; I87.2 Venous insufficiency (chronic) (peripheral)
CPT/HCPCS: 36415; 80053; 80061; 81002; 82570; 84156; 84443; 85025; 86705; 86706; 86803; 87340

== ENCOUNTER 2019-02-21 09:17 | Outpatient (RCR) | payer MEDICARE, SELFPAY ==
[2019-02-21 13:14] LABS: International Normalized Ratio 2.9; Prothrombin Time (Protime)PT. 30.1 SECONDS (11.7-14.9)
== END 2019-02-21 18:00 | disposition home or self-care (01) ==
LOC: MTLAB 09:17
PROVIDERS: Referring Provider Family Medicine; Visit Provider Family Medicine
DX: Z79.01 Long term (current) use of anticoagulants (principal)
CPT/HCPCS: 36415; 85610

== ENCOUNTER 2019-03-20 10:22 | Outpatient (RCR) | payer MEDICARE, SELFPAY ==
[2019-03-20 12:42] LABS: International Normalized Ratio 2.6; Prothrombin Time (Protime)PT. 27.8 SECONDS (11.7-14.9)
== END 2019-03-20 18:00 | disposition home or self-care (01) ==
LOC: MTLAB 10:22
PROVIDERS: Referring Provider Family Medicine; Visit Provider Family Medicine
DX: Z79.01 Long term (current) use of anticoagulants (principal)
CPT/HCPCS: 36415; 85610

== ENCOUNTER 2019-04-15 12:59 | Outpatient (RCR) | payer MEDICARE, SELFPAY ==
[2019-04-15 14:07] LABS: Absolute Lymphocyte Count 1.92 X10^3/uL (0.83-4.51); Absolute Neutrophil Count 5.1 X10^3/uL (2.0-7.7); Basophil# 0.07 X10^3/uL; Basophil% 0.8 % (0-1); Eosinophil# 0.43 X10^3/uL; Eosinophils% 5.2 % (0-5); Hematocrit 34.8 % (37-47); Hemoglobin 10.7 g/dL (12.0-15.0); Lymphocyte # 1.92 X10^3/ul (4.0); Lymphocyte % 23.2 % (19-41); Mean Corp Hgb Conc 30.7 g/dL (32-36); Mean Corpuscular Hgb 28.5 pg (27.0-32.0); Mean Corpuscular Volume 92.8 fL (81-99); Mean Platelet Vol. 10.4 fl (6.2-12.0); Monocyte# 0.73 X10^3/uL; Monocyte% 8.8 % (0-10); NRBC Flagged by Analyzer 0 % (0-5); Neutrophil % 61.8 % (47-70); Platelet Count 361 K/mm3 (150-450); RBC Distribution Width CV 16.3 % (11.6-14.6); RBC Distribution Width SD 55.2 fl (35.1-43.9); Red Blood Count 3.75 M/mm3 (4.2-5.4); White Blood Count 8.3 K/mm3 (4.4-11.0)
[2019-04-15 14:16] LABS: ALB/GLOB Ratio 0.9 RATIO (0.9-2.4); AST(SGOT) 21 U/L (15-37); Alanine Aminotransfer ALT/SGPT 15 U/L (13-56); Albumin, Serum 3.2 g/dL (3.2-5.0); Alkaline Phosphatase 85 U/L (45-117); Anion Gap 7 (5-15); BUN 15 mg/dL (7-18); BUN/Creat Ratio 15.5 RATIO (10-20); Calcium,Total 8.2 mg/dL (8.5-10.1); Chloride 108 mmol/L (98-107); Creatinine, Serum 0.96 mg/dL (0.55-1.02); EST Glomerular Filtration Rate 59 mL/min (>60); Est Glom Filt Rate - Afr Amer 71 mL/min (>60); Globulin 3.7 g/dL (2.2-4.2); Glucose 114 mg/dL (74-106); Potassium 3.9 mmol/L (3.5-5.1); Protein, Total 6.9 g/dL (6.4-8.2); Sodium Level 143 mmol/L (136-145)
[2019-04-15 14:19] LABS: Prothrombin Time (Protime)PT. 22.3 SECONDS (11.7-14.9)
== END 2019-04-15 18:00 | disposition home or self-care (01) ==
LOC: MTLAB 12:59
PROVIDERS: Referring Provider Family Medicine; Visit Provider Family Medicine
DX: Z79.01 Long term (current) use of anticoagulants (principal); R76.8 Other specified abnormal immunological findings in serum; M17.0 Bilateral primary osteoarthritis of knee; I48.91 Unspecified atrial fibrillation
CPT/HCPCS: 36415; 80053; 85025; 85610

== ENCOUNTER 2019-05-23 13:30 | Outpatient (RCR) | payer MEDICARE, SELFPAY ==
[2019-05-23 14:16] LABS: International Normalized Ratio 1.5; Prothrombin Time (Protime)PT. 18.1 SECONDS (11.7-14.9)
== END 2019-05-23 18:00 | disposition home or self-care (01) ==
LOC: MTLAB 13:30
PROVIDERS: Referring Provider Family Medicine; Visit Provider Family Medicine
DX: Z79.01 Long term (current) use of anticoagulants (principal)
CPT/HCPCS: 36415; 85610

== ENCOUNTER 2019-06-26 10:14 | Outpatient (RCR) | payer MEDICARE, SELFPAY ==
[2019-06-19 10:16] LABS: International Normalized Ratio 1.7; Prothrombin Time (Protime)PT. 20.1 SECONDS (11.7-14.9)
[2019-06-26 12:43] LABS: International Normalized Ratio 2.4; Prothrombin Time (Protime)PT. 26.3 SECONDS (11.7-14.9)
== END 2019-06-26 18:00 | disposition home or self-care (01) ==
LOC: MTLAB 10:14
PROVIDERS: Referring Provider Family Medicine; Visit Provider Family Medicine
DX: Z79.01 Long term (current) use of anticoagulants (principal)
CPT/HCPCS: 36415; 85610

== ENCOUNTER → 2019-07-06 | Outpatient (CLI) | payer MEDICARE, SELFPAY ==
[2019-07-06 11:30] VITALS: BMI 32.1
--- NOTE | 2019-07-06 12:38 | RAD_ITS ---
STUDY: X-RAY CHEST REASON FOR EXAM: Female, 83 years old. recent uti, pt not feeling well -- low oxygen levels TECHNIQUE: PA and lateral views of the chest. COMPARISON: 11/12/2018 FINDINGS: There is hyperinflation of the lungs consistent with chronic obstructive lung disease (COPD). No airspace consolidation. There is no demonstrated pleural abnormality. There is borderline cardiomegaly. Normal mediastinum and danii. Normal visualized pulmonary arteries. There is atherosclerotic calcification of the aortic arch with tortuosity. There is demineralization of the osseous structures. There is degenerative osteoarthritis of the bilateral shoulders. IVC filter noted. RAD/Chest PA and Lateral IMPRESSION: Stable, nonacute x-ray examination of the chest. Electronically Signed: Ghanshyam Clemens MD ([place]) at 13:20 EST , Service support ,
== END | disposition home or self-care (01) ==
LOC: RAD 12:38
PROVIDERS: Visit Provider Nurse Practitioner Family
DX: R05 Cough (principal)
CPT/HCPCS: 71046

== ENCOUNTER → 2019-07-08 | Outpatient (CLI) | payer MEDICARE, SELFPAY ==
[2019-07-06 13:02] VITALS: BMI 32.1
[2019-07-08 11:12] LABS: Color, Urine Yellow (Yellow); Glucose, Dipstick Normal (Normal); Ketone-Dipstick 5 mg/dl (Negative); Leukocyte Esterase-Dipstick 25 /ul (Negative); Nitrite-Dipstick Negative (Negative); Occult Blood-Urine 25 /ul (Negative); Protein-Dipstick 15 mg/dl (Negative); Specific Gravity, Urine 1.015 (1.002-1.030); Urine Bilirubin Dipstick Negative (Negative); Urine Clarity Cloudy (Clear); Urine Urobilinogen 4 mg/dl (Normal); Urine pH 6.5 (5.0 - 8.0)
[2019-07-08 11:20] LABS: Mucous, Urine 0 SEEN /hpf (<or=2+); Squamous Epithelial Cells - UA 0 SEEN /hpf (5-10)
[2019-07-08 11:22] LABS: Bacteria 4+ /hpf (None Seen); Calcium Oxalate Crystals Ur RARE /hpf (<or=2+); Red Blood Cells-Urine 0-5 SEEN /hpf (0-5); White Blood Cells 0-5 SEEN /hpf (0-5)
== END | disposition home or self-care (01) ==
LOC: LABSPEC 10:30
PROVIDERS: Referring Provider Nurse Practitioner Family; Visit Provider Nurse Practitioner Family
DX: N30.00 Acute cystitis without hematuria (principal); R30.0 Dysuria
CPT/HCPCS: 81001; 87077; 87086; 87088; 87186

== ENCOUNTER 2019-07-16 10:27 | Outpatient (RCR) | payer MEDICARE, SELFPAY ==
[2019-07-06 13:02] VITALS: BMI 32.1
[2019-07-16 12:27] LABS: International Normalized Ratio 3.1; Prothrombin Time (Protime)PT. 32.1 SECONDS (11.7-14.9)
== END 2019-07-16 18:00 | disposition home or self-care (01) ==
LOC: MTLAB 10:27
PROVIDERS: Referring Provider Family Medicine; Visit Provider Family Medicine
DX: Z79.01 Long term (current) use of anticoagulants (principal)
CPT/HCPCS: 36415; 85610

== ENCOUNTER 2019-09-18 09:34 | Outpatient (RCR) | payer MEDICARE, SELFPAY ==
[2019-07-06 13:02] VITALS: BMI 32.1
[2019-09-18 12:15] LABS: International Normalized Ratio 1.9; Prothrombin Time (Protime)PT. 21.1 SECONDS (11.7-14.9)
[2019-09-18 12:26] LABS: Thyroid Stim Hormone (TSH) 2.58 uIU/mL (0.358-3.74)
== END 2019-09-18 18:00 | disposition home or self-care (01) ==
LOC: MTLAB 09:34
PROVIDERS: Referring Provider Family Medicine; Visit Provider Family Medicine
DX: E03.9 Hypothyroidism, unspecified (principal); Z79.01 Long term (current) use of anticoagulants
CPT/HCPCS: 36415; 84443; 85610

== ENCOUNTER → 2019-10-09 13:00 | Outpatient (CLI) | payer MEDICARE, SELFPAY ==
[2019-07-06 13:02] VITALS: BMI 32.1
[2019-10-09 15:29] LABS: Absolute Lymphocyte Count 1.46 X10^3/uL (0.83-4.51); Basophil# 0.06 X10^3/uL; Basophil% 0.9 % (0-1); Eosinophil# 0.37 X10^3/uL; Eosinophils% 5.6 % (0-5); Hematocrit 34.2 % (37-47); Hemoglobin 10.7 g/dL (12.0-15.0); Lymphocyte # 1.46 X10^3/ul (4.0); Lymphocyte % 22.1 % (19-41); Mean Corp Hgb Conc 31.3 g/dL (32-36); Mean Corpuscular Hgb 29.2 pg (27.0-32.0); Mean Corpuscular Volume 93.4 fL (81-99); Mean Platelet Vol. 11.1 fl (6.2-12.0); Monocyte# 0.67 X10^3/uL; Monocyte% 10.2 % (0-10); NRBC Flagged by Analyzer 0 % (0-5); Neutrophil # 4.02 X10^3/uL (2.7-7.7); Neutrophil % 60.9 % (47-70); Platelet Count 311 K/mm3 (150-450); RBC Distribution Width SD 47.8 fl (35.1-43.9); Red Blood Count 3.66 M/mm3 (4.2-5.4); White Blood Count 6.6 K/mm3 (4.4-11.0)
[2019-10-09 15:40] LABS: ALB/GLOB Ratio 0.9 RATIO (0.9-2.4); AST(SGOT) 22 U/L (15-37); Alanine Aminotransfer ALT/SGPT 14 U/L (13-56); Albumin, Serum 3.1 g/dL (3.2-5.0); Alkaline Phosphatase 73 U/L (45-117); Anion Gap 4 (5-15); BUN 11 mg/dL (7-18); BUN/Creat Ratio 13.3 RATIO (10-20); Calcium,Total 8.2 mg/dL (8.5-10.1); Chloride 111 mmol/L (98-107); Creatinine, Serum 0.82 mg/dL (0.55-1.02); EST Glomerular Filtration Rate 70 mL/min (>60); Est Glom Filt Rate - Afr Amer 85 mL/min (>60); Globulin 3.3 g/dL (2.2-4.2); Glucose 107 mg/dL (74-106); Potassium 3.8 mmol/L (3.5-5.1); Protein, Total 6.4 g/dL (6.4-8.2); Sodium Level 144 mmol/L (136-145)
== END ==
PROVIDERS: Referring Provider Internal Medicine Rheumatology; Visit Provider Internal Medicine Rheumatology
DX: R76.8 Other specified abnormal immunological findings in serum (principal); M17.0 Bilateral primary osteoarthritis of knee; I48.91 Unspecified atrial fibrillation; E03.9 Hypothyroidism, unspecified; I10 Essential (primary) hypertension; E78.5 Hyperlipidemia, unspecified; I87.2 Venous insufficiency (chronic) (peripheral); N39.46 Mixed incontinence; M06.4 Inflammatory polyarthropathy
CPT/HCPCS: 36415; 80053; 85025

== ENCOUNTER 2019-10-28 12:25 | Outpatient (RCR) | payer MEDICARE, SELFPAY ==
[2019-07-06 13:02] VITALS: BMI 32.1
[2019-10-16 10:43] LABS: International Normalized Ratio 1.6; Prothrombin Time (Protime)PT. 18.8 SECONDS (11.7-14.9)
[2019-10-28 16:09] LABS: International Normalized Ratio 2.1; Prothrombin Time (Protime)PT. 23.4 SECONDS (11.7-14.9)
== END 2019-10-28 18:00 | disposition home or self-care (01) ==
LOC: MTLAB 12:25
PROVIDERS: Referring Provider Family Medicine; Visit Provider Family Medicine
DX: Z79.01 Long term (current) use of anticoagulants (principal)
CPT/HCPCS: 36415; 85610

== ENCOUNTER → 2019-11-11 | Outpatient (CLI) | payer MEDICARE, SELFPAY ==
[2019-07-06 13:02] VITALS: BMI 32.1
[2019-11-11 12:08] LABS: Absolute Lymphocyte Count 1.32 X10^3/uL (0.83-4.51); Absolute Neutrophil Count 4.9 X10^3/uL (2.0-7.7); Basophil# 0.05 X10^3/uL; Basophil% 0.7 % (0-1); Eosinophil# 0.36 X10^3/uL; Eosinophils% 4.9 % (0-5); Hemoglobin 11.3 g/dL (12.0-15.0); Lymphocyte # 1.32 X10^3/ul (4.0); Mean Corp Hgb Conc 30.5 g/dL (32-36); Mean Corpuscular Hgb 28.9 pg (27.0-32.0); Mean Corpuscular Volume 94.6 fL (81-99); Mean Platelet Vol. 10.5 fl (6.2-12.0); Monocyte# 0.66 X10^3/uL; NRBC Flagged by Analyzer 0 % (0-5); Neutrophil # 4.94 X10^3/uL (2.7-7.7); Neutrophil % 67.1 % (47-70); Platelet Count 314 K/mm3 (150-450); RBC Distribution Width CV 13.6 % (11.6-14.6); RBC Distribution Width SD 46.7 fl (35.1-43.9); Red Blood Count 3.91 M/mm3 (4.2-5.4); White Blood Count 7.4 K/mm3 (4.4-11.0)
[2019-11-11 12:19] LABS: ALB/GLOB Ratio 0.9 RATIO (0.9-2.4); AST(SGOT) 20 U/L (15-37); Alanine Aminotransfer ALT/SGPT 13 U/L (13-56); Albumin, Serum 3.1 g/dL (3.2-5.0); Alkaline Phosphatase 68 U/L (45-117); Anion Gap 4 (5-15); BUN 15 mg/dL (7-18); Calcium,Total 8.7 mg/dL (8.5-10.1); Chloride 109 mmol/L (98-107); Creatinine, Serum 0.88 mg/dL (0.55-1.02); EST Glomerular Filtration Rate 65 mL/min (>60); Est Glom Filt Rate - Afr Amer 79 mL/min (>60); Globulin 3.4 g/dL (2.2-4.2); Glucose 105 mg/dL (74-106); Potassium 3.8 mmol/L (3.5-5.1); Protein, Total 6.5 g/dL (6.4-8.2); Sodium Level 143 mmol/L (136-145)
[2019-11-13 20:07] LABS: Red Blood Cell Count Test/G6PD 3.95 x10E6/uL (3.77-5.28)
[2019-11-16 17:48] LABS: G6PD Quant Test 271 (146-376)
== END | disposition home or self-care (01) ==
LOC: MTLAB 10:18
PROVIDERS: Referring Provider Internal Medicine Rheumatology; Visit Provider Internal Medicine Rheumatology
DX: M06.4 Inflammatory polyarthropathy (principal); R76.8 Other specified abnormal immunological findings in serum; M17.0 Bilateral primary osteoarthritis of knee; I48.91 Unspecified atrial fibrillation; E03.9 Hypothyroidism, unspecified; I10 Essential (primary) hypertension; E78.5 Hyperlipidemia, unspecified; I87.2 Venous insufficiency (chronic) (peripheral); N39.46 Mixed incontinence
CPT/HCPCS: 36415; 80053; 82955; 85025

== ENCOUNTER 2019-12-16 12:58 | Outpatient (RCR) | payer MEDICARE, SELFPAY ==
[2019-07-06 13:02] VITALS: BMI 32.1
[2019-12-16 15:23] LABS: International Normalized Ratio 2.5; Prothrombin Time (Protime)PT. 26.6 SECONDS (11.7-14.9)
== END 2020-01-13 18:00 | disposition home or self-care (01) ==
LOC: MTLAB 12:58
PROVIDERS: Referring Provider Family Medicine; Visit Provider Family Medicine
DX: Z79.01 Long term (current) use of anticoagulants (principal)
CPT/HCPCS: 36415; 85610

== ENCOUNTER 2020-01-14 12:54 | Outpatient (RCR) | payer MEDICARE, SELFPAY ==
[2019-07-06 13:02] VITALS: BMI 32.1
[2020-01-14 16:10] LABS: International Normalized Ratio 2.6; Prothrombin Time (Protime)PT. 27.1 SECONDS (11.7-14.9)
== END 2020-01-14 18:00 | disposition home or self-care (01) ==
LOC: MTLAB 12:54
PROVIDERS: Referring Provider Family Medicine; Visit Provider Family Medicine
DX: Z79.01 Long term (current) use of anticoagulants (principal)
CPT/HCPCS: 36415; 85610

== ENCOUNTER 2020-03-09 12:59 | Outpatient (RCR) | payer MEDICARE, SELFPAY ==
[2019-07-06 13:02] VITALS: BMI 32.1
[2020-02-14 16:27] LABS: International Normalized Ratio 2.7; Prothrombin Time (Protime)PT. 28.6 SECONDS (11.7-14.9)
[2020-03-09 15:23] LABS: Absolute Lymphocyte Count 1.69 X10^3/uL (0.83-4.51); Absolute Neutrophil Count 4.8 X10^3/uL (2.0-7.7); Basophil# 0.06 X10^3/uL; Basophil% 0.8 % (0-1); Eosinophil# 0.33 X10^3/uL; Eosinophils% 4.4 % (0-5); Hematocrit 37.6 % (37-47); Hemoglobin 11.7 g/dL (12.0-15.0); Lymphocyte # 1.69 X10^3/ul (4.0); Lymphocyte % 22.4 % (19-41); Mean Corp Hgb Conc 31.1 g/dL (32-36); Mean Corpuscular Hgb 29.5 pg (27.0-32.0); Mean Corpuscular Volume 94.9 fL (81-99); Mean Platelet Vol. 10.7 fl (6.2-12.0); Monocyte# 0.63 X10^3/uL; Monocyte% 8.3 % (0-10); NRBC Flagged by Analyzer 0 % (0-5); Neutrophil # 4.83 X10^3/uL (2.7-7.7); Neutrophil % 63.8 % (47-70); Platelet Count 320 K/mm3 (150-450); RBC Distribution Width CV 13.8 % (11.6-14.6); RBC Distribution Width SD 48.4 fl (35.1-43.9); Red Blood Count 3.96 M/mm3 (4.2-5.4); White Blood Count 7.6 K/mm3 (4.4-11.0)
[2020-03-09 15:24] LABS: Prothrombin Time (Protime)PT. 35.8 SECONDS (11.7-14.9)
[2020-03-09 15:47] LABS: ALB/GLOB Ratio 0.8 RATIO (0.9-2.4); AST(SGOT) 18 U/L (15-37); Alanine Aminotransfer ALT/SGPT 12 U/L (13-56); Alkaline Phosphatase 76 U/L (45-117); Anion Gap 7 (5-15); BUN 19 mg/dL (7-18); BUN/Creat Ratio 18.8 RATIO (10-20); Calcium,Total 8.7 mg/dL (8.5-10.1); Chloride 109 mmol/L (98-107); Cholesterol 204 mg/dL (200); Creatinine, Serum 1.01 mg/dL (0.55-1.02); EST Glomerular Filtration Rate 55 mL/min (>60); Est Glom Filt Rate - Afr Amer 67 mL/min (>60); Globulin 3.6 g/dL (2.2-4.2); Glucose 103 mg/dL (74-106); High Density Lipoprotein 37 mg/dL; Potassium 4.3 mmol/L (3.5-5.1); Protein, Total 6.6 g/dL (6.4-8.2); Sodium Level 143 mmol/L (136-145); Thyroid Stim Hormone (TSH) 7.17 uIU/mL (0.358-3.74); Triglycerides 269 mg/dL; Very Low Density Lipoprotein 54 mg/dL (5-40)
[2020-03-09 16:05] LABS: International Normalized Ratio 3.6
== END 2020-03-09 18:00 | disposition home or self-care (01) ==
LOC: MTLAB 12:59
PROVIDERS: Referring Provider Family Medicine; Visit Provider Family Medicine
DX: Z00.00 Encounter for general adult medical examination without abnormal findings (principal); Z79.01 Long term (current) use of anticoagulants; I10 Essential (primary) hypertension; I48.91 Unspecified atrial fibrillation; E03.9 Hypothyroidism, unspecified; E78.00 Pure hypercholesterolemia, unspecified
CPT/HCPCS: 36415; 80053; 80061; 84443; 85025; 85610

== ENCOUNTER 2020-03-23 13:02 | Outpatient (RCR) | payer MEDICARE, SELFPAY ==
[2019-07-06 13:02] VITALS: BMI 32.1
[2020-03-23 15:36] LABS: International Normalized Ratio 2.8; Prothrombin Time (Protime)PT. 29.3 SECONDS (11.7-14.9)
== END 2020-03-23 18:00 | disposition home or self-care (01) ==
LOC: MTLAB 13:02
PROVIDERS: Referring Provider Family Medicine; Visit Provider Family Medicine
DX: Z79.01 Long term (current) use of anticoagulants (principal)
CPT/HCPCS: 36415; 85610

== ENCOUNTER 2020-04-29 12:26 | Outpatient (RCR) | payer MEDICARE, SELFPAY ==
[2019-07-06 13:02] VITALS: BMI 32.1
[2020-04-22 15:29] LABS: Prothrombin Time (Protime)PT. 35.2 SECONDS (11.7-14.9)
[2020-04-22 17:02] LABS: International Normalized Ratio 3.6
[2020-04-29 13:32] LABS: International Normalized Ratio 2.4; Prothrombin Time (Protime)PT. 25.9 SECONDS (11.7-14.9)
== END 2020-04-29 18:00 | disposition home or self-care (01) ==
LOC: MTLAB 12:26
PROVIDERS: Referring Provider Family Medicine; Visit Provider Family Medicine
DX: Z79.01 Long term (current) use of anticoagulants (principal)
CPT/HCPCS: 36415; 85610

== ENCOUNTER → 2020-05-14 14:34 | Outpatient (CLI) | payer MEDICARE, SELFPAY ==
[2019-07-06 13:02] VITALS: BMI 32.1
[2020-05-14 17:07] LABS: Thyroid Stim Hormone (TSH) 2.94 uIU/mL (0.358-3.74)
== END ==
PROVIDERS: Referring Provider Family Medicine; Visit Provider Family Medicine
DX: E03.9 Hypothyroidism, unspecified (principal)
CPT/HCPCS: 36415; 84443

== ENCOUNTER 2020-06-05 12:58 | Outpatient (RCR) | payer MEDICARE, SELFPAY ==
[2019-07-06 13:02] VITALS: BMI 32.1
[2020-06-05 15:19] LABS: Absolute Lymphocyte Count 1.59 X10^3/uL (0.83-4.51); Absolute Neutrophil Count 4.2 X10^3/uL (2.0-7.7); Basophil# 0.06 X10^3/uL; Basophil% 0.9 % (0-1); Eosinophil# 0.34 X10^3/uL; Hematocrit 35.9 % (37-47); Hemoglobin 11.2 g/dL (12.0-15.0); Lymphocyte # 1.59 X10^3/ul (4.0); Lymphocyte % 23.2 % (19-41); Mean Corp Hgb Conc 31.2 g/dL (32-36); Mean Corpuscular Hgb 29.4 pg (27.0-32.0); Mean Corpuscular Volume 94.2 fL (81-99); Mean Platelet Vol. 10.7 fl (6.2-12.0); Monocyte# 0.61 X10^3/uL; Monocyte% 8.9 % (0-10); NRBC Flagged by Analyzer 0 % (0-5); Neutrophil # 4.23 X10^3/uL (2.7-7.7); Neutrophil % 61.9 % (47-70); Platelet Count 319 K/mm3 (150-450); RBC Distribution Width CV 13.6 % (11.6-14.6); RBC Distribution Width SD 46.9 fl (35.1-43.9); Red Blood Count 3.81 M/mm3 (4.2-5.4); White Blood Count 6.8 K/mm3 (4.4-11.0)
[2020-06-05 15:26] LABS: Prothrombin Time (Protime)PT. 30.8 SECONDS (11.7-14.9)
[2020-06-05 15:52] LABS: ALB/GLOB Ratio 0.9 RATIO (0.9-2.4); AST(SGOT) 15 U/L (15-37); Alanine Aminotransfer ALT/SGPT 15 U/L (13-56); Albumin, Serum 3.1 g/dL (3.2-5.0); Alkaline Phosphatase 87 U/L (45-117); Anion Gap 5 (5-15); BUN 16 mg/dL (7-18); BUN/Creat Ratio 18.6 RATIO (10-20); Calcium,Total 8.1 mg/dL (8.5-10.1); Chloride 108 mmol/L (98-107); Creatinine, Serum 0.86 mg/dL (0.55-1.02); EST Glomerular Filtration Rate 67 mL/min (>60); Est Glom Filt Rate - Afr Amer 81 mL/min (>60); Globulin 3.5 g/dL (2.2-4.2); Glucose 102 mg/dL (74-106); Potassium 3.4 mmol/L (3.5-5.1); Protein, Total 6.6 g/dL (6.4-8.2); Sodium Level 142 mmol/L (136-145)
== END 2020-06-05 18:00 | disposition home or self-care (01) ==
LOC: MTLAB 12:58
PROVIDERS: Internal Medicine Rheumatology; Referring Provider Family Medicine; Visit Provider Family Medicine
DX: R76.8 Other specified abnormal immunological findings in serum (principal); M15.9 Polyosteoarthritis, unspecified; M17.0 Bilateral primary osteoarthritis of knee; I48.91 Unspecified atrial fibrillation; E03.9 Hypothyroidism, unspecified; I10 Essential (primary) hypertension; E78.5 Hyperlipidemia, unspecified; I87.2 Venous insufficiency (chronic) (peripheral); N39.46 Mixed incontinence; M06.4 Inflammatory polyarthropathy; Z79.01 Long term (current) use of anticoagulants
CPT/HCPCS: 36415; 80053; 85025; 85610

== ENCOUNTER 2020-08-06 12:22 | Outpatient (RCR) | payer MEDICARE, SELFPAY ==
[2019-07-06 13:02] VITALS: BMI 32.1
[2020-07-14 15:42] LABS: International Normalized Ratio 3.2
[2020-08-06 15:49] LABS: International Normalized Ratio 2.8; Prothrombin Time (Protime)PT. 28.6 SECONDS (11.7-14.9)
== END 2020-08-06 18:00 | disposition home or self-care (01) ==
LOC: MTLAB 12:22
PROVIDERS: Referring Provider Family Medicine; Visit Provider Family Medicine
DX: Z79.01 Long term (current) use of anticoagulants (principal)
CPT/HCPCS: 36415; 85610

== ENCOUNTER 2020-09-21 12:42 | Inpatient (IN) | payer MEDICARE, SELFPAY ==
[2019-07-06 13:02] VITALS: BMI 32.1
[2020-09-21] VITALS (10 sets, daily range): BP systolic 136–174; BP diastolic 68–111; PULSE 86–101; RESP 16–28; TEMP 36.8–37.7; O2SAT 90–97; BMI 35.0; BMI 34.1
--- NOTE | 2020-09-21 | VDLE_ITS ---
Reason For Study: BLE PAIN RIGHT LEFT GSV is normal. GSV is normal. CFV is compressible, spontaneous, phasic, CFV is compressible, spontaneous, phasic, competent and demonstrates normal competent, and demonstrates normal augmentation. augmentation. FV is compressible, spontaneous, phasic, FV is compressible, spontaneous, phasic, competent and demonstrates normal competent and demonstrates normal augmentation. augmentation. POP V is compressible, spontaneous, phasic, POP V is compressible, spontaneous, phasic, competent and demonstrates normal competent and demonstrates normal augmentation. augmentation. T/P Trunk is compressible. T/P Trunk is compressible. PTV is compressible. PTV is compressible. RT PerV is compressible. LT PerV is compressible. Procedure This is a venous duplex using B-mode, color flow and spectral Doppler. Exam performed portable in patient room. The study was technically difficult. A preliminary report was called and/or faxed to [facility]. VL/Venous Duplex US - Satish Extrem Interpretation Summary No evidence for acute deep venous thrombosis bilateral lower extremities with p atent and compressible bilateral great saphenous veins. The examination was noted to be t echnically difficult Ordering Physician: Kellee Clemons Referring Physician: Melvin Weber Performed By: Farnaz Puentes, RDCS, RVT
--- NOTE | 2020-09-21 12:57 | EKG12_ITS ---
Test Reason : LOWER EXTREMITY Blood Pressure : / mmHG Vent. Rate : 086 BPM Atrial Rate : 089 BPM P-R Int : 000 ms QRS Dur : 072 ms QT Int : 354 ms P-R-T Axes : 000 -15 038 degrees QTc Int : 423 ms Ectopic atrial rhythm Low voltage QRS (Limb Leads) Poor R wave progression Abnormal ECG Confirmed by RAHCAEL LEYVA, CHAVA ([id number]), book or script editor MARCUS REYNOSO ([id number]) on 09/23/2020 8:23:17 AM Referred By: ADDISON Confirmed By:CHAVA CANO MD
[2020-09-21 13:18] LABS: Mucous, Urine 0 SEEN /hpf (<or=2+); Squamous Epithelial Cells - UA 0 SEEN /hpf (5-10)
--- NOTE | 2020-09-21 13:24 | RAD_ITS ---
STUDY: X-RAY CHEST REASON FOR EXAM: , 85 years old. Hypoxia TECHNIQUE: Single AP portable view of the chest. COMPARISON: Comparison is made with prior study 07/06/2019. FINDINGS: EKG electrodes are seen. The lungs are clear and expanded. There is no demonstrated pleural abnormality. Normal size heart. Normal mediastinum and danii. Normal visualized pulmonary arteries. There is atherosclerotic calcification of the aortic arch with tortuosity. There are degenerative changes of the visualized thoracic spine. Normal visualized ribs, clavicles, and shoulders. There is no demonstrated abnormality of the visualized soft tissue structures of the upper abdomen. RAD/Chest 1 View (Portable) IMPRESSION: Stable examination. No acute abnormality is seen. Electronically Signed: Arnaldo Rosenthal MD at 13:56 EDT , Service support ,
--- NOTE | 2020-09-21 13:24 | EX.ED.DYSGE1 ---
HPI History of Present Illness Chief Complaint: Lower Extremity Injury Informant: patient and family Onset/Context/Timing Onset: Today (Change in mental status noted this morning by son) and Days (Wound anterior mid left leg for the past 2 to 3 days) Context: Sudden Onset Quality: The change in mental status and wound occurred abruptly. Location: Generalized and anterior left leg Current Severity: Mild Worsened by: Change in mental status suspect due to infectious encephalopathy Relieved by: Nothing Associated Symptoms Associated Symptoms: Limited history because patient is not oriented and is not appropriate with Narrative Narrative: Patient is an elderly woman who lives alone. She apparently sustained blunt trauma with skin tear mid anterior left leg 2 to 3 days ago. Redness was noted this morning by son. She was last known well yesterday afternoon by family. The change in mental status was noted this morning as well. History is limited because patient is disoriented. She tries to be humorous when she answers questions. Even her daughter asked her to be serious and she would not. Prior similar symptoms: No Recent Illness/Hospitalization: No PFSH PFSH Medical History History of blood clots Hyperlipidemia Hypertension Hypothyroidism Paroxysmal atrial fibrillation Home Medications levothyroxine 200 mcg PO DAILY 05/15/15 [History Last Taken 06/29/17 06:00] metoprolol tartrate 25 mg PO BID 05/15/15 [History Last Taken 06/29/17 06:00] raloxifene 60 mg PO DAILY 06/07/17 [History Last Taken Unknown] losartan 100 mg tablet 100 mg PO QDAY 06/19/17 [History Last Taken 06/29/17 06:00] acetaminophen 500 mg tablet 500 mg PO Q6H PRN 07/06/19 [History Last Taken Unknown] albuterol sulfate 90 mcg/actuation aerosol inhaler 1 - 2 puff INHALATION Q6H PRN #8.5 g 07/06/19 [Rx Last Taken Unknown] sotalol 80 mg tablet 80 mg PO DAILY tab 07/06/19 [History Last Taken Unknown] warfarin 3 mg tablet 1 tab PO DAILY 07/06/19 [History Last Taken Unknown] fexofenadine [Barbra] 180 mg PO DAILY 09/21/20 [History Last Taken Unknown] mirabegron [Myrbetriq] 50 mg PO DAILY 09/21/20 [History Last Taken Unknown] Allergy/AdvReac Type Severity Reaction Status Date / Time Penicillins Allergy Unknown Verified 09/21/20 12:58 Family History Father CVA (cerebral vascular accident) Surgical History H/O discectomy History of appendectomy Social History (Updated 09/21/20 @ 13:[address] Ronnie Smith MD) household members: none Smoking Status: Never smoker alcohol intake: never substance use type: does not use ROS ROS ED Review of Systems ROS Unobtainable: due to encephalopathy and due to mental status Constitutional Constitutional ED: Reports chills; Denies fever(s) Eyes Eyes: Denies blurry vision or change in vision ENT ENT ED: Reports rhinorrhea; Denies ear pain or sore throat Cardiovascular Cardiovascular: Denies chest pain or palpitations Respiratory/Chest Respiratory/Chest: Reports cough and dyspnea Gastrointestinal Gastrointestinal: Denies abdominal pain, nausea or vomiting Genitourinary Genitourinary ED: Denies dysuria, hematuria or urinary frequency Musculoskeletal Musculoskeletal: Denies arthralgias, back pain or myalgias Integumentary Reports Abrasions and rash Neurologic Neurologic: Reports weakness; Denies headache(s) Allergic/Immunologic Allergic/Immunologic ED: Denies urticaria EXAM Physical Exam Const Vital Signs: 09/21/20 12:48 09/21/20 12:57 09/21/20 13:57 Temperature 98.3 F 98.3 F Temperature Source Temporal Temporal Pulse Rate 86 89 Respiratory Rate 16 28 H Blood Pressure 174/73 H Blood Pressure Mean 106 Pulse Ox 90 97 96 Oxygen Delivery Method Room Air Nasal Cannula Nasal Cannula Oxygen Flow Rate (L/min) 2 2 HEENT Reports TM's clear and dry mucous membranes Negative for trauma or tenderness Tympanic Membrane ED: Yes TM's clear Mouth ED: Yes dry mucous membranes Mouth: dry mucous membranes Eyes PERRL and EOMs intact bilaterally General Eye ED: Negative for pale conjunctiva or scleral icterus Neck no lymphadenopathy, supple and no JVD Neck Narrative: Trachea is midline. There is no carotid bruit. General: Negative for tenderness Chest Wall inspection of chest normal and palpation of chest normal Resp No normal respiratory effort and clear to auscultation bilaterally Auscultation: diminished lung sounds Cardio regular rate, regular rhythm, S1 normal heart sound, S2 normal heart sound and no murmurs GI normal to inspection, nondistended, normoactive bowel sounds Back/Spine no CVA tenderness Cervical Spine: Negative for cervical spine tenderness Thoracic Spine / Upper Back: Negative for thoracic spinal tenderness Extremity Negative for normal to inspection Extremity Narrative: Patient has a wound with surrounding cellulitis anterior left leg. There is no popliteal or inguinal lymphadenopathy. There is no lymphangitis. There is no fluctuance noted. General Extremety ED: Yes edema and tenderness General Extremity: edema Neuro No oriented x3 and CN's II-XII intact bilaterally Neuro Narrative: Patient has little eye contact. She prefers to look to the right. When questioned why she states she hopes God takes her. Sensorium / Orientation: Negative for alert Sensory Exam: sensory level loss detected Motor Exam: strength 5/5 throughout Psych Psych Narrative: Patient is smiling inappropriately. Skin Skin Narrative: Skin rash/wound as previously described Rashes: rashes noted Wounds: wounds noted MDM MDM MDM Narrative Medical decision making narrative: Patient with encephalopathy suspect due to infection. The presumption is skin infection. Will assess for pneumonia and urinary tract infection as well. Sepsis order set was initiated. Nurse informed me that urine had a concentrated smell and was dark in color. Patient's urine is consistent with infection. And she also has evidence of cellulitis. Since she has had significant reaction to penicillin and Invanz she was treated with levofloxacin for urologic and skin pathogens. Since she has change in mental status will admit to hospital. She does meet sepsis criteria. She does not meet severe sepsis criteria. Lab Data Attestation: I reviewed the patient's lab results. Labs: Laboratory Results - last 24 hr 09/21/20 09/21/20 09/21/20 13:10 13:22 13:22 WBC 12.6 H RBC 4.18 L Hgb 12.3 Hct 38.1 MCV 91.1 MCH 29.4 MCHC 32.3 RDW Std Deviation 47.4 H RDW Coeff of Jackie 14.0 Plt Count 366 MPV 10.5 Immature Gran % (Auto) 0.600 Neut % (Auto) 74.0 H Lymph % (Auto) 12.6 L [place] % (Auto) 11.2 H Eos % (Auto) 1.0 Baso % (Auto) 0.6 Absolute Neuts (auto) 9.3 H Absolute Lymphs (auto) 1.58 Nucleated RBC % 0 PT 30.7 H INR 3.0 APTT 55.0 H Sodium Potassium Chloride Carbon Dioxide Anion Gap BUN Creatinine Estim Creat Clear Calc Est GFR (MDRD) Af Amer Est GFR (MDRD) Non-Af BUN/Creatinine Ratio Glucose Lactic Acid Calcium Total Bilirubin AST ALT Alkaline Phosphatase Total Protein Albumin Globulin Albumin/Globulin Ratio Urine Color Yellow Urine Clarity Sl. Cloudy Urine pH 7.0 Ur Specific [place] 1.010 Urine Protein Negative Urine Glucose (UA) Normal Urine Ketones Negative Urine Occult Blood 50 H Urine Nitrite Negative Urine Bilirubin Negative Urine Urobilinogen 1 H Ur Leukocyte Esterase 25 H Urine RBC 0-5 SEEN Urine WBC 5-10 SEEN Ur Squamous Epith Cells 0 SEEN Urine Bacteria 3+ Urine Mucus 0 SEEN 09/21/20 09/21/20 13:22 13:40 WBC RBC Hgb Hct MCV MCH MCHC RDW Std Deviation RDW Coeff of Jackie Plt Count MPV Immature Gran % (Auto) Neut % (Auto) Lymph % (Auto) [place] % (Auto) Eos % (Auto) Baso % (Auto) Absolute Neuts (auto) Absolute Lymphs (auto) Nucleated RBC % PT INR APTT Sodium 138 Potassium 4.1 Chloride 105 Carbon Dioxide 29.0 Anion Gap 4 L BUN 14 Creatinine 1.06 H Estim Creat Clear Calc 30.69 Est GFR (MDRD) Af Amer 63 Est GFR (MDRD) Non-Af 52 L BUN/Creatinine Ratio 13.2 Glucose 115 H Lactic Acid 1.5 Calcium 8.7 Total Bilirubin 0.60 AST 18 ALT 12 L Alkaline Phosphatase 79 Total Protein 7.3 Albumin 3.2 Globulin 4.1 Albumin/Globulin Ratio 0.8 L Urine Color Urine Clarity Urine pH Ur Specific [place] Urine Protein Urine Glucose (UA) Urine Ketones Urine Occult Blood Urine Nitrite Urine Bilirubin Urine Urobilinogen Ur Leukocyte Esterase Urine RBC Urine WBC Ur Squamous Epith Cells Urine Bacteria Urine Mucus Radiography Chest X-Ray - ED: 1 View, Read by ED Physician, Heart, Mediastinum, Bony Structures, No Acute Disease, Chronic Changes and - (Chest x-ray is unchanged from prior.) Diagnostic Testing: Radiology Impression Chest X-Ray 09/21/20 13:24 IMPRESSION: Stable examination. No acute abnormality is seen. Electronically Signed: Arnaldo Rosenthal MD at 13:56 EDT , Service support , EKG Initial EKG: Attestation: I personally reviewed and interpreted this EKG as follows: Interpretation: Sinus Rhythm Comments: Patient has a sinus rhythm with a ventricular 86. MI interval appears to be 120 ms. QRS duration 72 ms. QT duration 3 and 54 ms. [place] is normal. Computer is reading as accelerated junctional. Discharge Plan Triage Chief Complaint: Lower Extremity Injury ED Provider: Ronnie Smith Dx/Rx/DC Orders Clinical Impression: Infectious encephalopathy, Urinary tract infection, Cellulitis of left leg without foot Prescriptions: No Action losartan 100 mg tablet 100 mg PO QDAY RF: 0 warfarin [Jantoven] 3 mg tablet 1 tab PO DAILY RF: 0 sotalol 80 mg tablet 80 mg PO DAILY RF: 0 acetaminophen [Tylenol Extra Strength] 500 mg tablet 500 mg PO Q6H PRN (Reason: Pain) RF: 0 albuterol sulfate [ProAir HFA] 90 mcg/actuation HFA aerosol inhaler 1 - 2 puff inhalation Q6H PRN (Reason: shortness of breath or wheezing) Qty: 8.5 RF: 1 levothyroxine 137 MCG tablet 200 mcg PO DAILY RF: 0 metoprolol tartrate 25 MG tablet 25 mg PO BID RF: 0 raloxifene 60 MG tablet 60 mg PO DAILY RF: 0 fexofenadine [Barbra] 180 mg Tablet 180 mg PO DAILY RF: 0 Myrbetriq 50 mg Tablet Extended Release 24 Hr 50 mg PO DAILY RF: 0 Primary Care Provider: Melvin Weber Referrals: Melvin Weber [Primary Care Provider] - Disposition Disposition: Acute Care Hospital [facility]
[2020-09-21 13:27] LABS: Color, Urine Yellow (Yellow); Glucose, Dipstick Normal (Normal); Ketone-Dipstick Negative (Negative); Leukocyte Esterase-Dipstick 25 /ul (Negative); Nitrite-Dipstick Negative (Negative); Occult Blood-Urine 50 /ul (Negative); Protein-Dipstick Negative (Negative); Urine Bilirubin Dipstick Negative (Negative); Urine Clarity Sl. Cloudy (Clear); Urine Urobilinogen 1 mg/dl (Normal)
[2020-09-21 13:33] LABS: Bacteria 3+ /hpf (None Seen); Red Blood Cells-Urine 0-5 SEEN /hpf (0-5); White Blood Cells 5-10 SEEN /hpf (0-5)
[2020-09-21 13:33] LABS: Absolute Lymphocyte Count 1.58 X10^3/uL (0.83-4.51); Absolute Neutrophil Count 9.3 X10^3/uL (2.0-7.7); Basophil# 0.07 X10^3/uL; Basophil% 0.6 % (0-1); Eosinophil# 0.13 X10^3/uL; Hematocrit 38.1 % (37-47); Hemoglobin 12.3 g/dL (12.0-15.0); Lymphocyte # 1.58 X10^3/ul (0.83-4.51); Lymphocyte % 12.6 % (19-41); Mean Corp Hgb Conc 32.3 g/dL (32-36); Mean Corpuscular Hgb 29.4 pg (27.0-32.0); Mean Corpuscular Volume 91.1 fL (81-99); Mean Platelet Vol. 10.5 fl (6.2-12.0); Monocyte% 11.2 % (0-10); NRBC Flagged by Analyzer 0 % (0-5); Platelet Count 366 K/mm3 (150-450); RBC Distribution Width SD 47.4 fl (35.1-43.9); Red Blood Count 4.18 M/mm3 (4.2-5.4); White Blood Count 12.6 K/mm3 (4.4-11.0)
[2020-09-21] MEDS: 0.9% Normal Saline 1,000 ML 150 ML IV (13:34)
[2020-09-21 13:42] LABS: Prothrombin Time (Protime)PT. 30.7 SECONDS (11.7-14.9)
[2020-09-21 13:48] LABS: ALB/GLOB Ratio 0.8 RATIO (0.9-2.4); AST(SGOT) 18 U/L (15-37); Alanine Aminotransfer ALT/SGPT 12 U/L (13-56); Albumin, Serum 3.2 g/dL (3.2-5.0); Alkaline Phosphatase 79 U/L (45-117); Anion Gap 4 (5-15); BUN 14 mg/dL (7-18); BUN/Creat Ratio 13.2 RATIO (10-20); Calcium,Total 8.7 mg/dL (8.5-10.1); Chloride 105 mmol/L (98-107); Creatinine, Serum 1.06 mg/dL (0.55-1.02); EST Glomerular Filtration Rate 52 mL/min (>60); Est Glom Filt Rate - Afr Amer 63 mL/min (>60); Estimated Creatinine Clearance 30.69 ml/min; Globulin 4.1 g/dL (2.2-4.2); Glucose 115 mg/dL (74-106); Potassium 4.1 mmol/L (3.5-5.1); Protein, Total 7.3 g/dL (6.4-8.2); Sodium Level 138 mmol/L (136-145)
[2020-09-21 14:15] LABS: Lactic Acid 1.5 mmol/L (0.4-1.9)
[2020-09-21] MEDS: levoFLOXacin IV 750 MG/150 ML BAG 100 MG IV (15:02)
--- NOTE | 2020-09-21 15:10 | ED.RN ---
INR IS AT A THERAPEUTIC LEVEL FOR COUMADIN TX, SEPSIS ALERT NOT INITIATED.
--- NOTE | 2020-09-21 15:15 | RAD_ITS ---
STUDY: X-RAY - RIGHT ANKLE REASON FOR EXAM: Female, 85 years old. Injury/Pain TECHNIQUE: 3 view(s) of the ankle. COMPARISON: None. FINDINGS: Normal visualized distal tibia and fibula. Normal medial and lateral malleoli. Normal tibiotalar articulation and ankle mortise. Plantar spur. The visualized subtalar, talonavicular, calcaneocuboid and tarsal articulations are normal. Diffuse soft tissue swelling. RAD/Ankle min 3 Views IMPRESSION: Diffuse soft tissue swelling. Electronically Signed: Arnaldo Rosenthal MD at 15:32 EDT , Service support ,
--- NOTE | 2020-09-21 15:34 | HP.PCM.HOS_ITS ---
Documented by User: Kellee Clemons NP, SIZING MACHINE OPERATOR-C 09/21/20 16:01 HPI - General General Date of Admission: 09/21/20 HPI Narrative SG CARLISLE, is a 85 F who presents to the Emergency Room due to left lower extremity redness, warmth and pain. Patient also reports right lower extremity swelling and pain. She denies injury to right lower extremity. She does have a skin tear on her left julio from a recent injury. Patient's daughter at bedside, states her and her brother check on patient daily and patient was noted to be confused this morning. Her left lower extremity was noted to have significant redness. Denies fever, chills. Denies urinary symptoms. Patient remains somewhat confused in the emergency room, most of HPI provided by daughter. 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 [facility] Medical History (Updated 09/21/20 @ 14:[address] Ronnie Smith MD) History of blood clots Hyperlipidemia Hypertension Hypothyroidism Paroxysmal atrial fibrillation Home Medications metoprolol tartrate 25 mg PO BID 05/15/15 [History Last Taken 09/20/20] raloxifene 60 mg PO DAILY 06/07/17 [History Last Taken 09/20/20] losartan 100 mg tablet 100 mg PO DAILY 06/19/17 [History Last Taken 09/20/20] acetaminophen 500 mg tablet 500 mg PO Q6H PRN 07/06/19 [History Last Taken Unknown] albuterol sulfate 90 mcg/actuation aerosol inhaler 1 - 2 puff INHALATION Q6H PRN #8.5 g 07/06/19 [Rx Last Taken Unknown] sotalol 80 mg tablet 40 mg PO BID tab 07/06/19 [History Last Taken 09/20/20] warfarin 3 mg tablet 3 mg PO SUWE 07/06/19 [History Last Taken 09/20/20] fexofenadine [Barbra] 180 mg PO DAILY 09/21/20 [History Last Taken 09/20/20] levothyroxine 200 mcg PO DAILY 09/21/20 [History Last Taken 09/20/20] mirabegron [Myrbetriq] 50 mg PO DAILY 09/21/20 [History Last Taken 09/20/20] warfarin 4 mg PO MOTUTHFRSA 09/21/20 [History Last Taken 09/21/20] Allergy/AdvReac Type Severity Reaction Status Date / Time Penicillins Allergy Unknown Verified 09/21/20 12:58 Family History Father CVA (cerebral vascular accident) other (Denies known maternal medical history including cardiac history.) Surgical History (Updated 09/21/20 @ 15:51 by Kellee Clemons SIZING MACHINE OPERATOR, SIZING MACHINE OPERATOR-C) H/O discectomy History of appendectomy Status post right knee replacement Social History household members: none Smoking Status: Never smoker alcohol intake: never substance use type: does not use ROS ROS Narrative Patient reports left lower extremity abrasion with surrounding redness. Bilateral lower extremity tenderness with swelling, right greater than left. Constitutional Constitutional: Reports fatigue; Denies change in weight, chills, fever(s) or weakness Cardiovascular Cardiovascular: Denies chest pain, edema, lightheadedness, palpitations or syncope Respiratory/Chest Respiratory/Chest: Denies cough, dyspnea, productive cough, shortness of breath at rest, shortness of breath with exertion or wheezing Gastrointestinal Gastrointestinal: Denies abdominal pain, constipation, diarrhea, nausea or vomiting Genitourinary Genitourinary: Denies burning urination, difficulty urinating, dysuria, hematuria, urinary frequency, urinary incontinence or urinary urgency Musculoskeletal Musculoskeletal: Denies back pain or joint pain Neurologic Neurologic: Denies abnormal speech, confusion, dizziness, focal weakness, num bness, paresthesias, seizure-like activity or syncope Psychiatric Psychiatric: Denies anxiety or depression Hematologic/Lymphatic Hematologic/Lymphatic: Denies anemia, easy bleeding or easy bruising Allergic/Immunologic Allergic/Immunologic: Denies hives or asthma Vital Signs Vital Signs Vital Signs: 09/21/20 12:48 09/21/20 12:57 09/21/20 13:57 Temperature 98.3 F 98.3 F Temperature Source Temporal Temporal Pulse Rate 86 89 Respiratory Rate 16 28 H Blood Pressure 174/73 H Blood Pressure Mean 106 Pulse Ox 90 97 96 Oxygen Delivery Method Room Air Nasal Cannula Nasal Cannula Oxygen Flow Rate (L/min) 2 2 09/21/20 15:08 Temperature 98.9 F Temperature Source Temporal Pulse Rate 92 Respiratory Rate 17 Blood Pressure 146/111 H Blood Pressure Mean 122 Pulse Ox 96 Oxygen Delivery Method Nasal Cannula Oxygen Flow Rate (L/min) 2 Physical Exam Const alert, oriented x3 and no apparent distress Orientation / Consciousness: awake, oriented to person, oriented to place and oriented to time HEENT normocephalic and moist oral mucous membranes Eyes PERRL, EOMs intact bilaterally and conjunctivae normal Neck no lymphadenopathy Resp normal respiratory effort Auscultation: wheezes Cardio regular rate, regular rhythm and no murmurs Peripheral Pulses: pulses 2+ throughout GI normal to inspection, nondistended, normoactive bowel sounds, non-tender and non-distended Extremity normal to inspection Skin Skin Narrative: Left lower extremity julio abrasion/skin tear with surrounding erythema. Bilateral lower extremity swelling and discomfort, right more edematous than left. Lesions: no lesions Rashes: no rashes Trauma: no lacerations or abrasions Neuro oriented x3 Sensorium / Orientation: awake and alert Psych affect normal Lab / Micro Data Result Diagrams: 09/21/20 13:22 09/21/20 13:22 Labs: Laboratory Results - last 24 hr 09/21/20 09/21/20 09/21/20 13:10 13:22 13:22 WBC 12.6 H RBC 4.18 L Hgb 12.3 Hct 38.1 MCV 91.1 MCH 29.4 MCHC 32.3 RDW Std Deviation 47.4 H RDW Coeff of Jackie 14.0 Plt Count 366 MPV 10.5 Immature Gran % (Auto) 0.600 Neut % (Auto) 74.0 H Lymph % (Auto) 12.6 L Webster % (Auto) 11.2 H Eos % (Auto) 1.0 Baso % (Auto) 0.6 Absolute Neuts (auto) 9.3 H Absolute Lymphs (auto) 1.58 Nucleated RBC % 0 PT 30.7 H INR 3.0 APTT 55.0 H Sodium Potassium Chloride Carbon Dioxide Anion Gap BUN Creatinine Estim Creat Clear Calc Est GFR (MDRD) Af Amer Est GFR (MDRD) Non-Af BUN/Creatinine Ratio Glucose Lactic Acid Calcium Total Bilirubin AST ALT Alkaline Phosphatase Total Protein Albumin Globulin Albumin/Globulin Ratio Urine Color Yellow Urine Clarity Sl. Cloudy Urine pH 7.0 Ur Specific Hugo 1.010 Urine Protein Negative Urine Glucose (UA) Normal Urine Ketones Negative Urine Occult Blood 50 H Urine Nitrite Negative Urine Bilirubin Negative Urine Urobilinogen 1 H Ur Leukocyte Esterase 25 H Urine RBC 0-5 SEEN Urine WBC 5-10 SEEN Ur Squamous Epith Cells 0 SEEN Urine Bacteria 3+ Urine Mucus 0 SEEN 09/21/20 09/21/20 13:22 13:40 WBC RBC Hgb Hct MCV MCH MCHC RDW Std Deviation RDW Coeff of Jackie Plt Count MPV Immature Gran % (Auto) Neut % (Auto) Lymph % (Auto) Webster % (Auto) Eos % (Auto) Baso % (Auto) Absolute Neuts (auto) Absolute Lymphs (auto) Nucleated RBC % PT INR APTT Sodium 138 Potassium 4.1 Chloride 105 Carbon Dioxide 29.0 Anion Gap 4 L BUN 14 Creatinine 1.06 H Estim Creat Clear Calc 30.69 Est GFR (MDRD) Af Amer 63 Est GFR (MDRD) Non-Af 52 L BUN/Creatinine Ratio 13.2 Glucose 115 H Lactic Acid 1.5 Calcium 8.7 Total Bilirubin 0.60 AST 18 ALT 12 L Alkaline Phosphatase 79 Total Protein 7.3 Albumin 3.2 Globulin 4.1 Albumin/Globulin Ratio 0.8 L Urine Color Urine Clarity Urine pH Ur Specific Hugo Urine Protein Urine Glucose (UA) Urine Ketones Urine Occult Blood Urine Nitrite Urine Bilirubin Urine Urobilinogen Ur Leukocyte Esterase Urine RBC Urine WBC Ur Squamous Epith Cells Urine Bacteria Urine Mucus Radiology Impression Chest X-Ray 09/21/20 13:24 IMPRESSION: Stable examination. No acute abnormality is seen. Electronically Signed: Arnaldo Rosenthal MD at 13:56 EDT , Service support , Ankle X-Ray 09/21/20 15:15 IMPRESSION: Diffuse soft tissue swelling. Electronically Signed: Arnaldo Rosenthal MD at 15:32 EDT , Service support , Assessment & Plan Assessment/Plan (1) Infectious encephalopathy: (2) Cellulitis of left leg without foot: (3) Urinary tract infection: PLAN: 1. Sepsis secondary to left lower extremity cellulitis and possible UTI-IV Levaquin. Questionable UTI, possible contaminant however will treat empirically pending culture. Elevate lower extremities. Wound RN consult. PT/OT. Blood cultures drawn in ER. 2. Infectious encephalopathy-secondary to above. Continue treatment as noted above. 3. Left lower extremity cellulitis-IV Levaquin due to allergies. Wound RN consult for left lower extremity abrasion. Duplex ultrasound bilateral lower extremities. 4. Paroxysmal atrial fibrillation-on Coumadin, sotalol, metoprolol. 5. Factor V Leiden with history of DVT/PE-on Coumadin, INR 3. 6. Hypertension-stable, continue losartan, metoprolol. 7. Hyperlipidemia-not on statin. 8. Hypothyroidism-continue Synthroid regimen. DVT prophylaxis-Coumadin CODE STATUS: Discussed with patient's daughter who is healthcare power of bankruptcy attorney, patient remain full code. This patient was seen by BRIGIDA Phelps under the supervision of Dr. Stallworth. Documented by User: Dr. Hernandez Stallworth MD 09/21/20 16:31 HPI - General General Date of Admission: 09/21/20 [facility] Medical History (Updated 09/21/20 @ 14:[address] Ronnie Smith MD) History of blood clots Hyperlipidemia Hypertension Hypothyroidism Paroxysmal atrial fibrillation Home Medications metoprolol tartrate 25 mg PO BID 05/15/15 [History Last Taken 09/20/20] raloxifene 60 mg PO DAILY 06/07/17 [History Last Taken 09/20/20] losartan 100 mg tablet 100 mg PO DAILY 06/19/17 [History Last Taken 09/20/20] acetaminophen 500 mg tablet 500 mg PO Q6H PRN 07/06/19 [History Last Taken Unknown] albuterol sulfate 90 mcg/actuation aerosol inhaler 1 - 2 puff INHALATION Q6H PRN #8.5 g 07/06/19 [Rx Last Taken Unknown] sotalol 80 mg tablet 40 mg PO BID tab 07/06/19 [History Last Taken 09/20/20] warfarin 3 mg tablet 3 mg PO SUWE 07/06/19 [History Last Taken 09/20/20] fexofenadine [Barbra] 180 mg PO DAILY 09/21/20 [History Last Taken 09/20/20] levothyroxine 200 mcg PO DAILY 09/21/20 [History Last Taken 09/20/20] mirabegron [Myrbetriq] 50 mg PO DAILY 09/21/20 [History Last Taken 09/20/20] warfarin 4 mg PO MOTUTHFRSA 09/21/20 [History Last Taken 09/21/20] Allergy/AdvReac Type Severity Reaction Status Date / Time Penicillins Allergy Unknown Verified 09/21/20 12:58 Family History Father CVA (cerebral vascular accident) Surgical History (Updated 09/21/20 @ 15:51 by Kellee Clemons SIZING MACHINE OPERATOR, SIZING MACHINE OPERATOR-C) H/O discectomy History of appendectomy Status post right knee replacement Social History (Reviewed 09/21/20 @ 15:51 by Kellee Clemons SIZING MACHINE OPERATOR, SIZING MACHINE OPERATOR-C) household members: none Smoking Status: Never smoker alcohol intake: never substance use type: does not use Lab / Micro Data Result Diagrams: 09/21/20 13:22 09/21/20 13:22 Assessment & Plan Assessment/Plan (1) Infectious encephalopathy: (2) Cellulitis of left leg without foot: (3) Urinary tract infection: (4) Hypothyroidism: (5) Factor V Leiden: (6) Hypertension: (7) Hyperlipidemia: PLAN: Hospitalist note: I am seeing this patient in conjunction with Kellee Clemons. I independently seen and examined the patient. History and physical, laboratory data and imaging studies reviewed and I concur with the above admission and treatment plan. Patient presented to the emergency room because of left leg redness, pain and warmth. Patient's daughter mentioned that her mom had a small abrasion on the left leg few days ago and then she started having increasing swelling and redness of the left leg as well as pain. Also, patient complains of right leg pain. Patient's daughter mentioned that her mom has been confused this morning and her left leg looks more red and swollen. No reported fever or chills. Patient denied urinary symptoms. Patient was confused in the ED. In the emergency department, patient was afebrile, blood pressure was stable, pulse ox was 96% on room air. Routine blood work was remarkable for mild leukocytosis, otherwise unremarkable. Urinalysis revealed cloudy urine, negative for nitrite, there was only 25 leukocyte esterase, 5-10 WBCs and 3+ bacteria. Chest x-ray showed no acute findings. X-ray of the right ankle showed diffuse soft tissue swelling. - Physical Exam General: Alert, confused, disoriented, Cooperative, No apparent distress. HEENT: Atraumatic, PERRLA, EOMI. Neck: Supple, No JVD, Negative Carotid Bruits, Trachea Midline, Thyroid Normal. Lungs: Diminished breath sounds bilateral, otherwise clear, no rhonchi, No wheeze, No rales. Cardiovascular: Regular rate, Regular Rhythm, Normal S1, Normal S2, PMI Normal. Abdomen: Bowel Sounds Present, Soft, Non Tender, Non-Distended, No Hepato- splenomegaly. Extremities: No clubbing, No cyanosis, No edema Skin: No rashes, No breakdown Neurological: Cranial nerves are intact, neuro grossly intact Vital Signs are stable. Assessment and plan: #1 acute left lower extremity cellulitis: With right leg swelling without evidence of erythema. Patient has been afebrile, has mild leukocytosis. Plan: Admit to telemetry floor, start her on IV Levaquin because of allergies to penicillin, venous Doppler of both legs to rule out DVT, gentle IV fluids for hydration, input output chart, Tylenol as needed, Zofran as needed, repeat CBC and BMP tomorrow morning, PT OT evaluation and treatment. #2 probable acute cystitis: Urinalysis reviewed. Plan to start empiric IV antibiotics as above, urine culture. #3 encephalopathy: Likely metabolic due to acute infection. Plan to treat underlying etiology. #4 other chronic medical problems: Stable, continue current medications as above. This note was generated with [employer] dictation software. It may contain incorrect words, spelling, and punctuation that were not noted in checking the note before signing. Visit Charges Inpatient E&M: 39761 Init Hosp L2
[2020-09-21] MEDS: Metoprolol Tartrate 25 MG Tablet PO (21:16)
[2020-09-21] MEDS: Acetaminophen 500 MG Tablet PO (21:16)
[2020-09-21] MEDS: Sotalol Hydrochloride 80 MG Tablet 40 MG PO (21:17)
[2020-09-22] VITALS (10 sets, daily range): BP systolic 102–155; BP diastolic 57–85; PULSE 67–93; RESP 18; TEMP 36.9–37.6; O2SAT 95–96
[2020-09-22 05:06] LABS: Absolute Lymphocyte Count 1.63 X10^3/uL (0.83-4.51); Basophil# 0.04 X10^3/uL; Basophil% 0.4 % (0-1); Eosinophil# 0.07 X10^3/uL; Eosinophils% 0.7 % (0-5); Hematocrit 35.6 % (37-47); Hemoglobin 11.5 g/dL (12.0-15.0); Lymphocyte # 1.63 X10^3/ul (0.83-4.51); Lymphocyte % 16.1 % (19-41); Mean Corp Hgb Conc 32.3 g/dL (32-36); Mean Corpuscular Hgb 29.5 pg (27.0-32.0); Mean Corpuscular Volume 91.3 fL (81-99); Mean Platelet Vol. 10.1 fl (6.2-12.0); Monocyte# 1.32 X10^3/uL; NRBC Flagged by Analyzer 0 % (0-5); Neutrophil # 7.02 X10^3/uL (2.7-7.7); Neutrophil % 69.4 % (47-70); Platelet Count 288 K/mm3 (150-450); RBC Distribution Width CV 13.8 % (11.6-14.6); RBC Distribution Width SD 46.5 fl (35.1-43.9); White Blood Count 10.1 K/mm3 (4.4-11.0)
[2020-09-22 05:21] LABS: Anion Gap 5 (5-15); BUN 13 mg/dL (7-18); BUN/Creat Ratio 13.8 RATIO (10-20); Calcium,Total 8.4 mg/dL (8.5-10.1); Chloride 106 mmol/L (98-107); Creatinine, Serum 0.94 mg/dL (0.55-1.02); EST Glomerular Filtration Rate 60 mL/min (>60); Est Glom Filt Rate - Afr Amer 73 mL/min (>60); Estimated Creatinine Clearance 34.61 ml/min; Glucose 117 mg/dL (74-106); Sodium Level 138 mmol/L (136-145)
[2020-09-22 05:27] LABS: International Normalized Ratio 3.6; Prothrombin Time (Protime)PT. 34.9 SECONDS (11.7-14.9)
[2020-09-22] MEDS: Levothyroxine 100 MCG Tablet 200 MCG PO (05:55)
[2020-09-22] MEDS: Ensure Clear 120 ML Liquid PO ×2 (09:06→12:17)
[2020-09-22] MEDS: Sotalol Hydrochloride 80 MG Tablet 40 MG PO ×2 (09:08→21:39)
[2020-09-22] MEDS: Mirabegron 50 MG TAB.ER.24H PO (09:09)
[2020-09-22] MEDS: Losartan Potassium 100 MG Tablet PO (09:09)
[2020-09-22] MEDS: Metoprolol Tartrate 25 MG Tablet PO ×2 (09:09→21:39)
[2020-09-22] MEDS: Loratadine 10 MG Tablet PO (09:09)
[2020-09-22] MEDS: Raloxifene HCl 60 MG Tablet PO (09:10)
--- NOTE | 2020-09-22 09:38 | CASEMGMT ---
Addendum entered by Rose Mary Wong 09/22/20 11:04: Pt son Nash in pt room requesting to speak with LEONA YOUNGER. 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 He will call private duty agencies to set this up if they decide to. Discussed options of outpt or in home therapy if pt should need. Therapy to work with pt today. Patient was provided a list of [facility] providers including quality and resource use data and consistent with the patient?s preferred geographic region, medical needs, and insurance network. LEONA YOUNGER to check back with patient after therapy for plan. Original Note: LEONA YOUNGER Assessment: Face to Face with pt for initial transition planning/care coordination assessment. LEONA YOUNGER introduced self and role at [facility], pt voices understanding and consents to assessment. Pt is alert sitting up in bed in no distress. Pt able to answer all questions appropriately except when asked who she lives with. Pt states she would think about it and get back to CM. At end of assessment, pt able to answer that she lives alone. Care providers, pharmacy, and demographics verified/updated. Admitting Dx: infectious encephalopathy, cellulitis, UTI PCP: [facility] Specialists: Pt denies having any specialists. Preferred Pharmacy: [facility] Insurance: [facility] Prescription Benefit: yes LW/HPOA: Pt states she has a LW/DPOA. She states her DPOA is her son Nash Velasco. She is aware that it is not on file at [facility]. LNOK: Keiry Ruiz, dtr; Nash Velasco, son Living Arrangements: Pt states she lives alone in a 2 story house with no steps to enter. She states that she uses both floors and has many steps that she goes up and down many times a day and I haven't fallen yet. She states she is I in ADL's. Pt denies concerns at home. Transportation: Pt states she drives self and denies concerns with transportation. DME/HHC/SNF: Pt states she has a cane, shower chair and grab bars at home. Denies any previous HHC or SNF stays, although noted pt has been in TCU at [facility] in the past per medical record. Pt states no concerns with going home at time of dc and states she wants to go home today! Pt states no further concerns/needs. CM to follow. Advised pt to ask CM if any further question/concerns/needs arise, voices understanding. Pt Goal: Home Plan: Home with family support, possible HHC. 0958- TC to pt son Nash Velasco. He confirms pt answers. He also adds that family checks on pt 3x/day. He has concerns about pt ability to dress and bathe herself but reports pt states she does do this. Nash states pt does drive some but he tries to take her to places that she needs to go when he is available. He also notes pt has been in [facility] in addition to TCU. He is on his way in and would like to speak to RN CM regarding HHC at home. RN CM to follow for needs.
--- NOTE | 2020-09-22 14:48 | NURSING ---
wound photo: left lower leg
--- NOTE | 2020-09-22 14:50 | PCM.DC ---
Discharge Instructions Diet Discharge Diet: No restrictions Activity Discharge Activity: Return to Normal Activity Dressing / Incision Call your doctor if you observe: Fever of 101 or Higher, Shortness of breath, Dizziness and Chest pain Follow Up Care Test Results: Test results from this visit will be discussed in further detail at your follow-up appointment, if applicable. Discharge Plan Admission Admit Date/Time: 09/21/20 17:28 Primary Reason for Your Visit: Cellulitis, UTI Attending Provider: Jonathan Valenzuela Primary Care Provider: Melvin Weber Discharge Orders/Prescriptions Prescriptions: New levofloxacin 750 mg tablet 750 mg PO Q48H Qty: 4 RF: 0 Continued losartan 100 mg tablet 100 mg PO DAILY RF: 0 warfarin [Jantoven] 3 mg tablet 3 mg PO SUWE RF: 0 sotalol 80 mg tablet 40 mg PO BID RF: 0 acetaminophen [Tylenol Extra Strength] 500 mg tablet 500 mg PO Q6H PRN (Reason: Pain) RF: 0 albuterol sulfate [ProAir HFA] 90 mcg/actuation HFA aerosol inhaler 1 - 2 puff inhalation Q6H PRN (Reason: shortness of breath or wheezing) Qty: 8.5 RF: 1 metoprolol tartrate 25 MG tablet 25 mg PO BID RF: 0 raloxifene 60 MG tablet 60 mg PO DAILY RF: 0 fexofenadine 180 mg Tablet 180 mg PO DAILY RF: 0 Myrbetriq 50 mg Tablet Extended Release 24 Hr 50 mg PO DAILY RF: 0 levothyroxine 200 mcg tablet 200 mcg PO DAILY RF: 0 warfarin 4 mg Tablet 4 mg PO MOTUTHFRSA RF: 0 Referrals / Follow Up: Melvin Weber [Primary Care Provider] - In 1 Week Disposition Disposition (needs filled in before D/C Order can be placed): Home, self care
--- NOTE | 2020-09-22 15:04 | DS.PCM_ITS ---
Documented by User: Kellee Clemons NP, CERTIFIED PROFESSIONAL CONTROLLER-C 09/23/20 13:06 Providers Date of Admission: 09/21/20 Primary Care Physician: Melvin Weber Consultations 09/21/20 17:28 Consult: Onc/Wound/publication editor Routine Comment: Reason for Consult:: LLE wound/skin tear Reason For Visit: INFECTUOUS ENCEPHALITIS, CELLULITIS, UTI Diagnosis Discharge Diagnosis (1) Infectious encephalopathy: Status: Acute Code(s): G93.49 - Other encephalopathy; B99.9 - Unspecified infectious disease (2) Cellulitis of left leg without foot: Status: Acute Code(s): L03.116 - Cellulitis of left lower limb (3) Urinary tract infection: Status: Acute Code(s): N39.0 - Urinary tract infection, site not specified (4) Hypothyroidism: Status: Chronic Code(s): E03.9 - Hypothyroidism, unspecified (5) Factor V Leiden: Status: Chronic Code(s): D68.51 - Activated protein C resistance (6) Hypertension: Status: Chronic Code(s): I10 - Essential (primary) hypertension (7) Hyperlipidemia: Status: Chronic Code(s): E78.5 - Hyperlipidemia, unspecified Medications at Discharge Home Medications metoprolol tartrate 25 mg PO BID 05/15/15 raloxifene 60 mg PO DAILY 06/07/17 losartan 100 mg tablet 100 mg PO DAILY 06/19/17 acetaminophen 500 mg tablet 500 mg PO Q6H PRN 07/06/19 albuterol sulfate 90 mcg/actuation aerosol inhaler 1 - 2 puff INHALATION Q6H PRN #8.5 g 07/06/19 sotalol 80 mg tablet 40 mg PO BID tab 07/06/19 warfarin 3 mg tablet 3 mg PO SUWE 07/06/19 Myrbetriq 50 mg PO DAILY 09/21/20 fexofenadine 180 mg PO DAILY 09/21/20 levothyroxine 200 mcg PO DAILY 09/21/20 warfarin 4 mg PO MOTUTHFRSA 09/21/20 cephalexin 500 mg PO Q6 09/23/20 sulfamethoxazole-trimethoprim 1 tab PO BID 09/23/20 Hospital Course Operations None Procedures None Summary of Care Provided Minutes Spent on Discharge: 35 Hospital Course: Patient is an 85-year-old female admitted 09/21/2020 due to left lower extremity redness, warmth and pain. 1. Sepsis secondary to left lower extremity cellulitis and e.coli UTI-urine c ulture growing ESBL positive E. coli, significant resistance pattern. Discharged on Bactrim for 7-day course as well as Keflex for cellulitis. Afebrile, leukocytosis resolved. Follow-up with PCP in 1 week. Blood cultures with no growth. 2. Infectious encephalopathy-secondary to above. Improved, at baseline. 3. Left lower extremity cellulitis- Duplex ultrasound bilateral lower extremities negative for DVT. IV Levaquin during admission. Discharged on Keflex/Bactrim to complete course. 4. Paroxysmal atrial fibrillation-on Coumadin, sotalol, metoprolol. 5. 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 6. Hypertension-stable, continue losartan, metoprolol. 7. Hyperlipidemia-not on statin. 8. Hypothyroidism-continue Synthroid regimen. Physical Exam Const alert, oriented x3 and no apparent distress Orientation / Consciousness: awake, oriented to person, oriented to place and oriented to time HEENT normocephalic and moist oral mucous membranes Eyes PERRL, EOMs intact bilaterally and conjunctivae normal Neck no lymphadenopathy Resp normal respiratory effort and clear to auscultation bilaterally Cardio regular rate, regular rhythm and no murmurs Peripheral Pulses: pulses 2+ throughout GI normal to inspection, nondistended, normoactive bowel sounds, non-tender and non-distended Extremity normal to inspection General Extremity: edema bilateral lower extremity (right greater than left) Details: mild Skin no rashes or lesions noted Skin Narrative: Left knee abrasion/skin tear, surrounding erythema improved Lesions: no lesions Rashes: no rashes Trauma: no lacerations or abrasions Neuro oriented x3 Sensorium / Orientation: awake and alert Psych affect normal Patient seen and examined prior to discharge. Physical assessment as noted above. Patient is stable for discharge with follow up recommendations as noted above. Discharge date 09/23/2020. This patient was seen by BRIGIDA Phelps under the supervision of Dr. Valenzuela. [facility] Narrative Medical decision making narrative: Clinical Impression(s) from Imaging Studies Chest X-Ray 09/21/20 13:24 IMPRESSION: Stable examination. No acute abnormality is seen. Electronically Signed: Arnaldo Rosenthal MD at 13:56 EDT , Service support , Ankle X-Ray 09/21/20 15:15 IMPRESSION: Diffuse soft tissue swelling. Electronically Signed: Arnaldo Rosenthal MD at 15:32 EDT , Service support , ABG / Lab / Microbiology Data Result Diagrams: 09/23/20 05:40 09/23/20 05:40 Laboratory: Laboratory Results - last 24 hr 09/22/20 09/22/20 09/22/20 05:02 05:02 05:02 WBC 10.1 RBC 3.90 L Hgb 11.5 L Hct 35.6 L MCV 91.3 MCH 29.5 MCHC 32.3 RDW Std Deviation 46.5 H RDW Coeff of Jackie 13.8 Plt Count 288 MPV 10.1 Immature Gran % (Auto) 0.400 Neut % (Auto) 69.4 Lymph % (Auto) 16.1 L [place] % (Auto) 13.0 H Eos % (Auto) 0.7 Baso % (Auto) 0.4 Absolute Neuts (auto) 7.0 Absolute Lymphs (auto) 1.63 Nucleated RBC % 0 PT 34.9 H INR 3.6 Sodium 138 Potassium 4.0 Chloride 106 Carbon Dioxide 27.0 Anion Gap 5 BUN 13 Creatinine 0.94 Estim Creat Clear Calc 34.61 Est GFR (MDRD) Af Amer 73 Est GFR (MDRD) Non-Af 60 BUN/Creatinine Ratio 13.8 Glucose 117 H Calcium 8.4 L Microbiology: Microbiology 09/21/20 13:10 Urine Culture - Preliminary Urine, Catheterized Presumptive E. coli Microbiology 09/21/20 13:10 Urine, Catheterized Urine Culture - Preliminary Presumptive E. coli Radiography Diagnostic Testing: Radiology Impression Ankle X-Ray 09/21/20 15:15 IMPRESSION: Diffuse soft tissue swelling. Electronically Signed: Arnaldo Rosenthal MD at 15:32 EDT , Service support , D/C Instructions Discharge Diet: No restrictions Discharge Activity: Return to Normal Activity Call your doctor if you observe: Fever of 101 or Higher, Shortness of breath, Dizziness and Chest pain Meaningful Use Info Meaningful Use Diagnoses (Choose all that apply): None applicable Discharge Plan Admission Admit Date/Time: 09/21/20 17:28 Primary Reason for Your Visit: Cellulitis, UTI Attending Provider: Jonathan Valenzuela Primary Care Provider: Melvin Weber Instructions Additional Instructions / Restrictions: Patient Problems: Altered Health Status related to Hospitalization Patient Goals: *Optimal Level of Health *Keep Appointments *Medication Compliance *Remain Safe Discharge Orders/Prescriptions Prescriptions: Continued losartan 100 mg tablet 100 mg PO DAILY RF: 0 warfarin [Jantoven] 3 mg tablet 3 mg PO SUWE RF: 0 sotalol 80 mg tablet 40 mg PO BID RF: 0 acetaminophen [Tylenol Extra Strength] 500 mg tablet 500 mg PO Q6H PRN (Reason: Pain) RF: 0 albuterol sulfate [ProAir HFA] 90 mcg/actuation HFA aerosol inhaler 1 - 2 puff inhalation Q6H PRN (Reason: shortness of breath or wheezing) Qty: 8.5 RF: 1 metoprolol tartrate 25 MG tablet 25 mg PO BID RF: 0 raloxifene 60 MG tablet 60 mg PO DAILY RF: 0 fexofenadine 180 mg Tablet 180 mg PO DAILY RF: 0 Myrbetriq 50 mg Tablet Extended Release 24 Hr 50 mg PO DAILY RF: 0 levothyroxine 200 mcg tablet 200 mcg PO DAILY RF: 0 warfarin 4 mg Tablet 4 mg PO MOTUTHFRSA RF: 0 No Action sulfamethoxazole-trimethoprim 800-160 mg tablet 1 tab PO BID RF: 0 cephalexin 500 mg capsule 500 mg PO Q6 RF: 0 Referrals / Follow Up: Melvin Weber [Primary Care Provider] - In 1 Week Disposition Disposition (needs filled in before D/C Order can be placed): Long Term Facility Documented by User: Dr. Jonathan Valenzuela, DO 09/29/20 11:20 Providers Date of Admission: 09/21/20 Reason For Visit: INFECTUOUS ENCEPHALITIS, CELLULITIS, UTI Medications at Discharge Home Medications metoprolol tartrate 25 mg PO BID 05/15/15 raloxifene 60 mg PO DAILY 06/07/17 losartan 100 mg tablet 100 mg PO DAILY 06/19/17 acetaminophen 500 mg tablet 500 mg PO Q6H PRN 07/06/19 albuterol sulfate 90 mcg/actuation aerosol inhaler 1 - 2 puff INHALATION Q6H PRN #8.5 g 07/06/19 sotalol 80 mg tablet 40 mg PO BID tab 07/06/19 warfarin 3 mg tablet 3 mg PO SUWE 07/06/19 Myrbetriq 50 mg PO DAILY 09/21/20 fexofenadine 180 mg PO DAILY 09/21/20 levothyroxine 200 mcg PO DAILY 09/21/20 warfarin 4 mg PO MOTUTHFRSA 09/21/20 cephalexin 500 mg PO Q6 09/23/20 sulfamethoxazole-trimethoprim 1 tab PO BID 09/23/20 ABG / Lab / Microbiology Data Result Diagrams: 09/23/20 05:40 09/23/20 05:40 Discharge Plan Admission Admit Date/Time: 09/21/20 17:28 Primary Reason for Your Visit: Cellulitis, UTI Attending Provider: Jonathan Valenzuela Primary Care Provider: Melvin Weber Instructions Additional Instructions / Restrictions: Patient Problems: Altered Health Status related to Hospitalization Patient Goals: *Optimal Level of Health *Keep Appointments *Medication Compliance *Remain Safe Discharge Orders/Prescriptions Prescriptions: Continued losartan 100 mg tablet 100 mg PO DAILY RF: 0 warfarin [Jantoven] 3 mg tablet 3 mg PO SUWE RF: 0 sotalol 80 mg tablet 40 mg PO BID RF: 0 acetaminophen [Tylenol Extra Strength] 500 mg tablet 500 mg PO Q6H PRN (Reason: Pain) RF: 0 albuterol sulfate [ProAir HFA] 90 mcg/actuation HFA aerosol inhaler 1 - 2 puff inhalation Q6H PRN (Reason: shortness of breath or wheezing) Qty: 8.5 RF: 1 metoprolol tartrate 25 MG tablet 25 mg PO BID RF: 0 raloxifene 60 MG tablet 60 mg PO DAILY RF: 0 fexofenadine 180 mg Tablet 180 mg PO DAILY RF: 0 Myrbetriq 50 mg Tablet Extended Release 24 Hr 50 mg PO DAILY RF: 0 levothyroxine 200 mcg tablet 200 mcg PO DAILY RF: 0 warfarin 4 mg Tablet 4 mg PO MOTUTHFRSA RF: 0 No Action sulfamethoxazole-trimethoprim 800-160 mg tablet 1 tab PO BID RF: 0 cephalexin 500 mg capsule 500 mg PO Q6 RF: 0 Referrals / Follow Up: Melvin Weber [Primary Care Provider] - In 1 Week Disposition Disposition (needs filled in before D/C Order can be placed): Long Term Facility Addendum Addendum: The date of this discharge summary should read: 09/23/2020-Patient was seen and examined today independently of Kellee Clemons, she appears stable at this time for transfer to an extended care facility for short-term rehab services On examination she appeared in good health and spirits, she does not appear to be in any distress. Vital signs as documented. Skin warm and dry and without overt rashes. Neck without JVD, thyroid appears normal, trachea is midline, neck is supple. Lungs clear, normal air movement was noted. Heart exam notable for regular rhythm, normal sounds and absence of murmurs, rubs or gallops. Abdomen unremarkable and without evidence of organomegaly, masses, or abdominal aortic enlargement, bowel sounds are present in all 4 quadrants, no abdominal tenderness was noted. Extremities nonedematous, no cyanosis was noted, no clubbing was noted. Neuro: Cranial nerves II through XII are grossly intact, no focal motor deficits were noted, sensation to light touch and pinprick is intact, motor exam 5/5 throughout. Psych: Patient is alert and oriented x3, she does not appear anxious or depressed, she does not appear agitated. Patient appears stable at this time for discharge to an extended care facility for further rehab services, I have reviewed Kellee Clemons's discharge summary including her medical assessment and plan of care and endorse it.
--- NOTE | 2020-09-22 15:09 | PCM.PN.HOSP ---
Documented by User: Kellee Clemons NP, ASSISTANT PURCHASING MANAGER-C 09/22/20 15:16 Subjective Subjective Patient seen and examined. Left lower extremity redness significantly improved. Duplex ultrasound bilateral lower extremities negative for DVT. Patient denies fever, chills. Lower extremity pain improved. Objective Data Objective Data Vital Signs: Vital Signs Temp Pulse Resp BP Pulse Ox 99.6 F H 87 18 110/74 95 09/22/20 09:04 09/22/20 09:09 09/22/20 09:04 09/22/20 09:04 09/22/20 09:04 Oxygen Flow Rate (L/min) 2 Oxygen Delivery Method Room Air Weight: 186 lb 11.211 oz Body Mass Index (BMI) 34.1 Intake & Output: Intake and Output for Last 24 Hours 09/20/20 09/21/20 09/22/20 23:59 23:59 23:59 Intake Total 972.5 / 972.5 450 / 450 Output Total 450 / 450 550 / 550 Balance 522.5 / 522.5 -100 / -100 Lab / Micro Data Result Diagrams: 09/22/20 05:02 09/22/20 05:02 Labs: Laboratory Results - last 24 hr 09/22/20 09/22/20 09/22/20 05:02 05:02 05:02 WBC 10.1 RBC 3.90 L Hgb 11.5 L Hct 35.6 L MCV 91.3 MCH 29.5 MCHC 32.3 RDW Std Deviation 46.5 H RDW Coeff of Jackie 13.8 Plt Count 288 MPV 10.1 Immature Gran % (Auto) 0.400 Neut % (Auto) 69.4 Lymph % (Auto) 16.1 L [place] % (Auto) 13.0 H Eos % (Auto) 0.7 Baso % (Auto) 0.4 Absolute Neuts (auto) 7.0 Absolute Lymphs (auto) 1.63 Nucleated RBC % 0 PT 34.9 H INR 3.6 Sodium 138 Potassium 4.0 Chloride 106 Carbon Dioxide 27.0 Anion Gap 5 BUN 13 Creatinine 0.94 Estim Creat Clear Calc 34.61 Est GFR (MDRD) Af Amer 73 Est GFR (MDRD) Non-Af 60 BUN/Creatinine Ratio 13.8 Glucose 117 H Calcium 8.4 L Micro: Microbiology 09/21/20 13:10 Urine, Catheterized Urine Culture - Preliminary Presumptive E. coli Radiography Diagnostic Testing: Radiology Impression Ankle X-Ray 09/21/20 15:15 IMPRESSION: Diffuse soft tissue swelling. Electronically Signed: Arnaldo Rosenthal MD at 15:32 EDT , Service support , Physical Exam Const alert, oriented x3 and no apparent distress Orientation / Consciousness: awake, oriented to person, oriented to place and oriented to time HEENT normocephalic and moist oral mucous membranes Eyes PERRL, EOMs intact bilaterally and conjunctivae normal Neck no lymphadenopathy Resp normal respiratory effort and clear to auscultation bilaterally Cardio regular rate, regular rhythm and no murmurs Peripheral Pulses: pulses 2+ throughout GI normal to inspection, nondistended, normoactive bowel sounds, non-tender and non-distended Extremity normal to inspection General Extremity: edema bilateral lower extremity (right greater than left) Details: mild Skin no rashes or lesions noted Skin Narrative: Left knee abrasion/skin tear, surrounding erythema improved Lesions: no lesions Rashes: no rashes Trauma: no lacerations or abrasions Neuro oriented x3 Sensorium / Orientation: awake and alert Psych affect normal Assessment & Plan Assessment/Plan (1) Infectious encephalopathy: (2) Urinary tract infection: (3) Cellulitis of left leg without foot: PLAN: 1. Sepsis secondary to left lower extremity cellulitis and e.coli UTI-IV Levaquin. Elevate lower extremities. Wound RN consult. PT/OT. Blood cultures pending. Urine culture preliminary growing E. coli. 2. Infectious encephalopathy-secondary to above. Improved, no further noted confusion. 3. Left lower extremity cellulitis-IV Levaquin due to allergies. Wound RN consult for left lower extremity abrasion. Duplex ultrasound bilateral lower extremities negative for DVT. 4. Paroxysmal atrial fibrillation-on Coumadin, sotalol, metoprolol. 5. 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 Trend INR. 6. Hypertension-stable, continue losartan, metoprolol. 7. Hyperlipidemia-not on statin. 8. Hypothyroidism-continue Synthroid regimen. DVT prophylaxis-Coumadin Discharge planning: Patient and family amenable to TCU for rehab. Awaiting pre-CERT for This patient was seen by BRIGIDA Phelps under the supervision of Dr. Valenzuela. Documented by User: Dr. Jonathan Valenzuela, 09/22/20 18:21 Objective Data Lab / Micro Data Result Diagrams: 09/22/20 05:02 09/22/20 05:02 Addendum Addendum: Patient was seen and examined today independently of Kellee Clemons, she had decided late this afternoon that she wanted to go to an extended care facility for short-term rehab services. Patient's venous duplex scan was negative for VTE. Her urine culture was positive for E. coli, patient's mentation is good today. On examination she appeared in good health and spirits, she does not appear to be in any distress. Vital signs as documented. Skin warm and dry and without overt rashes. Neck without JVD, thyroid appears normal, trachea is midline, neck is supple. Lungs clear, normal air movement was noted. Heart exam notable for regular rhythm, normal sounds and absence of murmurs, rubs or gallops. Abdomen unremarkable and without evidence of organomegaly, masses, or abdominal aortic enlargement, bowel sounds are present in all 4 quadrants, no abdominal tenderness was noted. Extremities nonedematous, no cyanosis was noted, no clubbing was noted. Neuro: Cranial nerves II through XII are grossly intact, no focal motor deficits were noted, sensation to light touch and pinprick is intact, motor exam 5/5 throughout. Psych: Patient is alert and oriented x3, she does not appear anxious or depressed, she does not appear agitated. I have reviewed Kellee Clemons's progress note including her medical assessment and plan of care and with the above additions endorse it. Visit Charges Inpatient E&M: 91891 Subs Hosp L2
--- NOTE | 2020-09-22 15:13 | CASEMGMT ---
Therapy said patient needs to go somewhere for rehab. MARGARITA met with patient and her daughter. Introduced self and role at [facility]. SW let them know it is being recommended that patient go somewhere for rehab. Patient's daughter how long she would have to go. MARGARITA told her it would depend on patient and how she does with therapy. Patient's daughter asked if she could go to [facility]. MARGARITA told her SW will check to see if they are in network and SW will be back. MARGARITA reviewed insurance website and [facility] is not in network. MARGARITA called [facility] to obtain patient's in and out of network SNF benefits. Days 1-10 are covered at 100%, Days 11-20 there is a $25 a day co-pay, and days 21-100 there is a $50 a day co-pay. Her out of network benefits are not the same there is an 80/20 co-insurance. SW provided patient and her daughter with a list of SNF providers including quality and resource use data and consistent with the patient?s preferred geographic region, medical needs, and insurance network. The facilities that are in network were highlighted. SW went to patient's room and went over everything, [facility] being out of network, the list, and insurance coverage. Patient's daughter said they would like [facility] TCU. MARGARITA spoke with [facility] and they would have a bed for patient. SW let patient and her daughter know this. SW also went over visitation for TCU. Visits must be scheduled and visitors cannot stay all day. MARGARITA gave her a TCU pamphlet with the number for TCU. MARGARITA told them she would not go today and likely tomorrow or the next day. Plan: d/c to [facility] TCU pending pre-cert. Jesica Landaverde MSW ANGELA
[2020-09-23] VITALS (7 sets, daily range): BP systolic 87–133; BP diastolic 40–67; PULSE 68–77; RESP 16–18; TEMP 36.1–36.5; O2SAT 94–98
[2020-09-23] MEDS: Levothyroxine 100 MCG Tablet 200 MCG PO (05:24)
[2020-09-23 06:02] LABS: Mean Corp Hgb Conc 31.4 g/dL (32-36); Mean Corpuscular Hgb 28.7 pg (27.0-32.0); Mean Corpuscular Volume 91.4 fL (81-99); Mean Platelet Vol. 10.2 fl (6.2-12.0); Platelet Count 287 K/mm3 (150-450); RBC Distribution Width SD 47.6 fl (35.1-43.9); Red Blood Count 3.83 M/mm3 (4.2-5.4); White Blood Count 8.2 K/mm3 (4.4-11.0)
[2020-09-23 06:23] LABS: Anion Gap 6 (5-15); BUN 14 mg/dL (7-18); BUN/Creat Ratio 15.3 RATIO (10-20); Calcium,Total 8.3 mg/dL (8.5-10.1); Chloride 107 mmol/L (98-107); Creatinine, Serum 0.92 mg/dL (0.55-1.02); EST Glomerular Filtration Rate 62 mL/min (>60); Est Glom Filt Rate - Afr Amer 75 mL/min (>60); Estimated Creatinine Clearance 35.36 ml/min; Glucose 97 mg/dL (74-106); Potassium 3.8 mmol/L (3.5-5.1); Sodium Level 140 mmol/L (136-145)
[2020-09-23 06:24] LABS: International Normalized Ratio 2.4
[2020-09-23] MEDS: levoFLOXacin IV 750 MG/150 ML BAG 100 MG IV (08:29)
[2020-09-23] MEDS: Ensure Clear 120 ML Liquid PO (08:30)
[2020-09-23] MEDS: Losartan Potassium 100 MG Tablet PO (08:31)
[2020-09-23] MEDS: Loratadine 10 MG Tablet PO (08:31)
[2020-09-23] MEDS: Mirabegron 50 MG TAB.ER.24H PO (08:31)
[2020-09-23] MEDS: Sotalol Hydrochloride 80 MG Tablet 40 MG PO (08:31)
[2020-09-23] MEDS: Metoprolol Tartrate 25 MG Tablet PO (08:31)
[2020-09-23] MEDS: Raloxifene HCl 60 MG Tablet PO (08:32)
--- NOTE | 2020-09-23 12:26 | CASEMGMT ---
MARGARITA received a call from [facility] and patient was approved to admit to TCU. MARGARITA notified Nurse Practitioner, Kellee. MARGARITA will notify patient's RN and family. Jesica MILLER
--- NOTE | 2020-09-23 12:40 | TREXTCAR_ITS ---
Diet 09/21/20 17:28 Diet: Regular - General Food consistency:: Regular Liquid Consistency:: Regular/Thin Routine Orders/Code Status Enema Type: Fleetz Enema Frequency: Daily PRN Suppository Type: Dulcolax 10mg Suppository Frequency: Daily PRN Routine Lab Work: - (CBC, BMP weekly) Code Status: Full Code Wound(s) Rt julio: Wound Type: Scabbed area Left julio: Wound Type: scabbed over wound Suggestions for Active Care Change Position every (hours): 2 Times a day to sit in chair: 3 Therapies Physical Therapy: Eval and Treat Occupational Therapy: Eval and Treat Problem/Diagnosis (1) Infectious encephalopathy: Status: Acute (2) Urinary tract infection: Status: Acute (3) Cellulitis of left leg without foot: Status: Acute Allergies/Procedures Done in Hospital Allergies Penicillins Allergy (Verified 09/21/20 12:58) Unknown Procedures: None Type of Care/Length of Stay Estimated LOS: Convalescent Care Less Than 30 days Type of Care Needed: Skilled Rehab Potential: Fair Prognosis: Fair Additional Orders/Day of Discharge H&P will serve as current which was dated: 09/21/20 Day of Discharge: 09/23/20 Dietary and Speech Recommendations Dietitian Recommendations/Changes: will continue regular diet and ensure clear 120mL TID; will assess need for ONS at time of follow-up and adjust as indicated. Namrata Arredondo MS, RDN, LD Discharge Plan Admission Admit Date/Time: 09/21/20 17:28 Primary Reason for Your Visit: Cellulitis, UTI Attending Provider: Jonathan Valenzuela Primary Care Provider: Melvin Weber Discharge Orders/Prescriptions Prescriptions: New sulfamethoxazole-trimethoprim 800-160 mg Tablet 1 tab PO BID Qty: 0 RF: 0 cephalexin 500 mg Capsule 500 mg PO Q6 5 Days Qty: 20 RF: 0 Continued losartan 100 mg tablet 100 mg PO DAILY RF: 0 warfarin [Jantoven] 3 mg tablet 3 mg PO SUWE RF: 0 sotalol 80 mg tablet 40 mg PO BID RF: 0 acetaminophen [Tylenol Extra Strength] 500 mg tablet 500 mg PO Q6H PRN (Reason: Pain) RF: 0 albuterol sulfate [ProAir HFA] 90 mcg/actuation HFA aerosol inhaler 1 - 2 puff inhalation Q6H PRN (Reason: shortness of breath or wheezing) Qty: 8.5 RF: 1 metoprolol tartrate 25 MG tablet 25 mg PO BID RF: 0 raloxifene 60 MG tablet 60 mg PO DAILY RF: 0 fexofenadine 180 mg Tablet 180 mg PO DAILY RF: 0 Myrbetriq 50 mg Tablet Extended Release 24 Hr 50 mg PO DAILY RF: 0 levothyroxine 200 mcg tablet 200 mcg PO DAILY RF: 0 warfarin 4 mg Tablet 4 mg PO [facility] RF: 0 Referrals / Follow Up: Melvin Weber [Primary Care Provider] - In 1 Week Disposition Disposition (needs filled in before D/C Order can be placed): Senior Care Facility
--- NOTE | 2020-09-23 13:34 | CASEMGMT ---
Pt screened with [facility] Palliative Care Screening Tool d/t strata 3, pt did not meet criteria.
--- NOTE | 2020-09-23 13:59 | CASEMGMT ---
Orders copied. Negative COVID test done. Patient's son is in the room and SW notified him of the visitation in TCU. SW gave him a TCU pamphlet as well. SW also called patient's daughter and let her know patient will be going to TCU today. Plan: d/c to [facility] TCU under skilled level of care. Jesica MILLER
--- NOTE | 2020-09-23 14:29 | PHA.DC.MR ---
Pharmacy Service has performed discharge medication reconciliation for this patient. The patient's discharge medication list was reviewed for discrepancies and discrepancies were resolved. Home Medications metoprolol tartrate 25 mg PO BID 05/15/15 raloxifene 60 mg PO DAILY 06/07/17 losartan 100 mg tablet 100 mg PO DAILY 06/19/17 acetaminophen 500 mg tablet 500 mg PO Q6H PRN 07/06/19 albuterol sulfate 90 mcg/actuation aerosol inhaler 1 - 2 puff INHALATION Q6H PRN #8.5 g 07/06/19 sotalol 80 mg tablet 40 mg PO BID tab 07/06/19 warfarin 3 mg tablet 3 mg PO SUWE 07/06/19 Myrbetriq 50 mg PO DAILY 09/21/20 fexofenadine 180 mg PO DAILY 09/21/20 levothyroxine 200 mcg PO DAILY 09/21/20 warfarin 4 mg PO MOTUTHFRSA 09/21/20 cephalexin 500 mg PO Q6 5 Days #20 cap 09/23/20 sulfamethoxazole-trimethoprim 1 tab PO BID #0 tab 09/23/20
== END 2020-09-23 15:51 | disposition skilled nursing facility (03) | DRG 871 ==
LOC: ED 14:55 → PCU 15:25
PROVIDERS: Nurse Practitioner Family; Admitting Provider Hospitalist; Emergency Provider Emergency Medicine; Visit Provider Internal Medicine
DX: A41.9 Sepsis, unspecified organism (principal); G93.41 Metabolic encephalopathy; N30.00 Acute cystitis without hematuria; L03.116 Cellulitis of left lower limb; D68.51 Activated protein C resistance; B96.20 Unspecified Escherichia coli [E. coli] as the cause of diseases classified elsewhere; I48.0 Paroxysmal atrial fibrillation; Z79.01 Long term (current) use of anticoagulants; Z86.711 Personal history of pulmonary embolism; I10 Essential (primary) hypertension; E78.5 Hyperlipidemia, unspecified; E03.9 Hypothyroidism, unspecified; Z79.899 Other long term (current) drug therapy; Z86.718 Personal history of other venous thrombosis and embolism
CPT/HCPCS: 36415; 71045; 73610; 80048; 80053; 81001; 83605; 85025; 85027; 85610; 85730; 87040; 87086; 87088; 87186; 87426; 93005; 93970; 97116; 97162; 97167; 97530; 97535; 97802; 99285; J7030; J7040; P9612; A4216

== ENCOUNTER 2020-09-23 16:02 | Inpatient (IN) | payer MEDICARE, SELFPAY ==
[2020-09-21 17:28] VITALS: BMI 34.1
[2020-09-23 16:08] VITALS: BP 125/51; PULSE 94; RESP 16; TEMP 37.6; O2SAT 93; BMI 32.9
[2020-09-23] MEDS: Sotalol Hydrochloride 80 MG Tablet 40 MG PO (18:29)
[2020-09-23] MEDS: Cephalexin 500 MG Capsule PO (18:30)
[2020-09-23] MEDS: Smz/Tmp Ds Tablet 1 TABLET PO (18:30)
[2020-09-23 18:38] VITALS: BP 125/51; PULSE 94
[2020-09-23] MEDS: Metoprolol Tartrate 25 MG Tablet PO (18:38)
[2020-09-23 23:00] VITALS: RESP 16
[2020-09-24] MEDS: Cephalexin 500 MG Capsule PO ×4 (00:01→18:12)
[2020-09-24 03:10] VITALS: BP 131/61; PULSE 75; RESP 16; TEMP 37.2; O2SAT 95
--- NOTE | 2020-09-24 04:21 | PCM.HP.STD ---
HPI - General General Date of Admission: 09/23/20 HPI Narrative 09/21/2020 SG CARLISLE, is a 85 Female who presents to [facility] Emergency Department with lower extremity injury. 09/21/2020 EKG ectopic atrial rhythm, low voltage QRS, poor R wave progression. X-ray right elbow negative fracture, dislocation. Lives alone, trauma to left lower extremity, left lower extremity redness. Change in mental status, confused. Evaluate for pneumonia, urinary tract infection. UA consistent with urinary tract infection. Levaquin given for urinary tract infection, left lower extremity cellulitis, urine culture sent, blood culture sent. 09/21/2020 Admit to Hospital. Levaquin, wound nurse for left lower extremity cellulitis. Levaquin for urinary tract infection. PT/OT for debility. 09/22/2020 Left lower extremity cellulitis improved with Levaquin. Doppler ultrasound of bilateral lower extremity negative DVT. Urinary tract infection secondary to E. Coli, continue Levaquin. 09/23/2020 Urinary tract infection secondary to ESBL E. Coli, treat with Bactrim. Left lower extremity cellulitis treat with Keflex. Encephalopathy improved to baseline. 09/23/2020 Admit to TCU. FOR[facility], [facility] Medical History History of blood clots Hyperlipidemia Hypertension Hypothyroidism Paroxysmal atrial fibrillation Home Medications metoprolol tartrate 25 mg PO BID 05/15/15 [History Last Taken 09/20/20] raloxifene 60 mg PO DAILY 06/07/17 [History Last Taken 09/20/20] losartan 100 mg tablet 100 mg PO DAILY 06/19/17 [History Last Taken 09/20/20] acetaminophen 500 mg tablet 500 mg PO Q6H PRN 07/06/19 [History Last Taken Unknown] albuterol sulfate 90 mcg/actuation aerosol inhaler 1 - 2 puff INHALATION Q6H PRN #8.5 g 07/06/19 [Rx Last Taken Unknown] sotalol 80 mg tablet 40 mg PO BID tab 07/06/19 [History Last Taken 09/20/20] warfarin 3 mg tablet 3 mg PO SUWE 07/06/19 [History Last Taken 09/20/20] Myrbetriq 50 mg PO DAILY 09/21/20 [History Last Taken 09/20/20] fexofenadine 180 mg PO DAILY 09/21/20 [History Last Taken 09/20/20] levothyroxine 200 mcg PO DAILY 09/21/20 [History Last Taken 09/20/20] warfarin 4 mg PO MOTUTHFRSA 09/21/20 [History Last Taken 09/21/20] cephalexin 500 mg PO Q6 09/23/20 [History Last Taken Unknown] sulfamethoxazole-trimethoprim 1 tab PO BID 09/23/20 [History Last Taken Unknown] Allergy/AdvReac Type Severity Reaction Status Date / Time Penicillins Allergy Unknown Verified 09/21/20 12:58 Family History Father CVA (cerebral vascular accident) Surgical History H/O discectomy History of appendectomy Status post right knee replacement Social History household members: none Smoking Status: Never smoker alcohol intake: never substance use type: does not use ROS Constitutional Constitutional: Denies chills, fever(s) or weight gain ENT HEENT: Denies headache(s), nasal congestion or nasal discharge Cardiovascular Cardiovascular: Denies chest pain or palpitations Respiratory/Chest Respiratory/Chest: Denies cough, excessive phlegm production or shortness of breath with exertion Gastrointestinal Gastrointestinal: Denies abdominal pain, nausea or vomiting Genitourinary Genitourinary: Denies dysuria Musculoskeletal Musculoskeletal: Denies joint pain or joint swelling Integumentary Integumentary: Denies rash or wounds Neurologic Neurologic: Denies focal weakness, numbness or tingling Psychiatric Psychiatric: Reports auditory hallucinations; Denies anxiety, depression, homicidal ideation or suicidal ideation Vital Signs Vital Signs Vital Signs: 09/23/20 16:08 09/23/20 18:38 09/23/20 23:00 Temperature 99.6 F H Temperature Source Oral Pulse Rate 94 94 Respiratory Rate 16 16 Respiratory Effort Normal Respiratory Depth Normal Respiratory Pattern Normal Blood Pressure 125/51 H 125/51 H Blood Pressure Mean 75 Blood Pressure Source Monitor Blood Pressure Position Sitting Blood Pressure Location Right Arm Pulse Ox 93 Oxygen Delivery Method Room Air Room Air 09/24/20 03:10 Temperature 99.0 F Temperature Source Oral Pulse Rate 75 Respiratory Rate 16 Respiratory Effort Respiratory Depth Respiratory Pattern Blood Pressure 131/61 H Blood Pressure Mean 84 Blood Pressure Source Monitor Blood Pressure Position Supine Blood Pressure Location Right Arm Pulse Ox 95 Oxygen Delivery Method Room Air Physical Exam Const alert and oriented x3 General Appearance: cooperative HEENT normocephalic Eyes PERRL and EOMs intact bilaterally Neck supple, no JVD and no carotid bruits Resp normal respiratory effort, normal air movement and clear to auscultation bilaterally Cardio regular rate and regular rhythm GI normal to inspection, nondistended, normoactive bowel sounds, non-tender and non-distended Extremity normal capillary refill General Extremity: Negative for edema Skin no rashes or lesions noted General Skin Exam: no breakdown Psych affect normal Appearance: appropriate Assessment & Plan Assessment/Plan (1) Debility: (2) Infectious encephalopathy: (3) Sepsis: (4) Urinary tract infection: (5) Cellulitis of left leg without foot: (6) Atrial fibrillation: (7) Hypertension: (8) Hyperlipidemia: (9) Hypothyroidism: (10) Deep vein thrombosis: (11) Osteoporosis: (12) Allergic rhinitis: (13) Overactive bladder: PLAN: 85 year old female with below past medical history hospitalized for infectious encephalopathy secondary to ESBL E. Coli urinary tract infection, cellulitis of left lower extremity, admitted to TCU with debility, here for rehabilitation, strengthening, prior to discharge home alone. Debility - PT/OT. Pain - Tylenol 1000MG Q6H PRN pain (1-10). Bowel - Miralax 17GM daily, Senna/colace 1 tablet BID, Dulcolax 10MG NE daily PRN. Adult immunization - Administer Prevnar 13, Pneumovax 23, Fluzone, COVID19 vaccine as appropriate. DVT prophylaxis - Not necessary, on warfarin. Shortness of breath - Albuterol 1-2 puff Q6H PRN. Left lower extremity cellulitis - Keflex 500MG Q6H thru 09/28/2020. Nutrition - Ensure Enlive 120ML 4x/day. Hypothyroidism - Levothyroxine 200MCG daily. Allergic rhinitis - Loratadine 10MG daily. Hypertension - Metoprolol 25MG BID, Losartan 100MG daily. Skin irritation - Calmoseptine topical BID. Atrial fibirllation - Metoprolol 25MG BID, Sotalol 40MG BID, Warfarin 4MG 5 days/week, 3MG 2 days/week, follow INR. Overactive bladder - Myrbetriq 50MG daily. Osteoporosis - Evista 60MG daily. ESBL E. Coli urinary tract infection - Bactrim DS BID thru 09/28/2020.
[2020-09-24] MEDS: Acetaminophen 500 MG Tablet 1000 MG PO (05:11)
[2020-09-24] MEDS: Loratadine 10 MG Tablet PO (05:11)
[2020-09-24] MEDS: Sotalol Hydrochloride 80 MG Tablet 40 MG PO ×2 (05:12→18:12)
[2020-09-24] MEDS: Levothyroxine 100 MCG Tablet 200 MCG PO (05:12)
[2020-09-24] MEDS: Mirabegron 50 MG TAB.ER.24H PO (05:12)
[2020-09-24] MEDS: Losartan Potassium 100 MG Tablet PO (05:12)
[2020-09-24] MEDS: Polyethylene Glycol 3350 17 GM PACKET PO (05:13)
[2020-09-24] MEDS: Senna/Docusate Sodium 1 Tablet PO ×2 (05:14→18:11)
[2020-09-24] MEDS: Menthol/Lanolin/Calamine/Znox 113 GM Tube 1 APPLIC TOPICAL ×2 (05:14→18:12)
[2020-09-24 05:17] VITALS: BP 131/61; PULSE 75
[2020-09-24] MEDS: Metoprolol Tartrate 25 MG Tablet PO ×2 (05:17→18:12)
[2020-09-24 05:46] LABS: Absolute Lymphocyte Count 1.52 X10^3/uL (0.83-4.51); Absolute Neutrophil Count 3.7 X10^3/uL (2.0-7.7); Basophil# 0.05 X10^3/uL; Basophil% 0.8 % (0-1); Eosinophil# 0.29 X10^3/uL; Eosinophils% 4.4 % (0-5); Hemoglobin 10.9 g/dL (12.0-15.0); Lymphocyte # 1.52 X10^3/ul (0.83-4.51); Lymphocyte % 23.2 % (19-41); Mean Corp Hgb Conc 31.1 g/dL (32-36); Mean Corpuscular Hgb 28.7 pg (27.0-32.0); Mean Corpuscular Volume 92.1 fL (81-99); Mean Platelet Vol. 10.5 fl (6.2-12.0); Monocyte# 0.95 X10^3/uL; Monocyte% 14.5 % (0-10); NRBC Flagged by Analyzer 0 % (0-5); Neutrophil # 3.73 X10^3/uL (2.7-7.7); Neutrophil % 56.9 % (47-70); Platelet Count 309 K/mm3 (150-450); RBC Distribution Width CV 13.9 % (11.6-14.6); RBC Distribution Width SD 47.4 fl (35.1-43.9); White Blood Count 6.6 K/mm3 (4.4-11.0)
[2020-09-24 06:01] LABS: Anion Gap 5 (5-15); BUN 16 mg/dL (7-18); BUN/Creat Ratio 16.7 RATIO (10-20); Calcium,Total 8.2 mg/dL (8.5-10.1); Chloride 108 mmol/L (98-107); Creatinine, Serum 0.96 mg/dL (0.55-1.02); EST Glomerular Filtration Rate 59 mL/min (>60); Est Glom Filt Rate - Afr Amer 71 mL/min (>60); Estimated Creatinine Clearance 35.44 ml/min; Glucose 94 mg/dL (74-106); Potassium 4.1 mmol/L (3.5-5.1); Sodium Level 139 mmol/L (136-145)
[2020-09-24] MEDS: Raloxifene HCl 60 MG Tablet PO (07:04)
[2020-09-24] MEDS: Smz/Tmp Ds Tablet 1 TABLET PO ×2 (07:41→18:11)
[2020-09-24 09:08] LABS: Prothrombin Time (Protime)PT. 21.8 SECONDS (11.7-14.9)
[2020-09-24] MEDS: Tuberculin,Purif.prot.deriv. 50 TU/ML Vial 5 ML ID (11:49)
[2020-09-24 14:20] VITALS: BP 102/67; PULSE 70; RESP 14; TEMP 36.4; O2SAT 94
--- NOTE | 2020-09-24 15:16 | PHA.CONS_ITS ---
Progress Note - Pharmacy Subjective: TCU ADMISSION Objective: Allergies Penicillins Allergy (Verified 09/21/20 12:58) Unknown Current Medications Generic Name Dose Route Start Last Admin Trade Name Freq PRN Reason Stop Dose Admin Acetaminophen 1,000 mg 09/24/20 04:45 09/24/20 05:11 Acetaminophen 500 Mg Tablet PO 1,000 mg Q6H PRN PRN Administration Pain Score 1-10 Albuterol Sulfate 1 - 2 puff 09/23/20 16:21 Albuterol Sulfate 8 Gm Inhaler (60 Puffs) INHALATION Q6H PRN shortness of breath or wheezing Bisacodyl 10 mg 09/23/20 16:48 Bisacodyl 10 Mg Suppository RC DAILY PRN Constipation Calamine/Phenol 1 applic 09/24/20 06:00 09/24/20 05:14 Menthol/Lanolin/Calamine/Znox 113 Gm Tube TOPICAL 1 applic BID CONNIE Administration Protocol Cephalexin 500 mg 09/24/20 18:00 Cephalexin 500 Mg Capsule PO 09/28/20 18:01 BID CONNIE Levothyroxine Sodium 200 mcg 09/24/20 06:00 09/24/20 05:12 Levothyroxine 100 Mcg Tablet PO 200 mcg DAILY CONNIE Administration Loratadine 10 mg 09/24/20 06:00 09/24/20 05:11 Loratadine 10 Mg Tablet PO 10 mg DAILY CONNIE Administration Losartan Potassium 100 mg 09/24/20 06:00 09/24/20 05:12 Losartan Potassium 100 Mg Tablet PO 100 mg DAILY CONNIE Administration Metoprolol Tartrate 25 mg 09/23/20 18:00 09/24/20 05:17 Metoprolol Tartrate 25 Mg Tablet PO 25 mg BID CONNIE Administration Mirabegron 50 mg 09/24/20 06:00 09/24/20 05:12 Mirabegron 50 Mg Tab.Er.24h PO 50 mg DAILY CONNIE Administration Nutritional Formula (Lactose Free) 120 ml 09/24/20 06:00 09/24/20 11:49 Ensure Enlive 120 Ml Liquid PO 120 ml 4X/DAY CONNIE Administration Polyethylene Glycol 17 gm 09/24/20 06:00 09/24/20 05:13 Polyethylene Glycol 3350 17 Gm Packet PO 17 gm DAILY CONNIE Administration Raloxifene HCl 60 mg 09/24/20 06:00 09/24/20 07:04 Raloxifene Hcl 60 Mg Tablet PO 60 mg DAILY CONNIE Administration Senna/Docusate Sodium 1 tablet 09/24/20 06:00 09/24/20 05:14 Senna/Docusate Sodium 1 Tablet PO 1 tablet BID CONNIE Administration Sodium Chloride 10 - 40 ml 09/24/20 03:32 0.9% Saline Lock 10 Ml Syringe IV UD PRN SALINE FLUSH Sodium Chloride 10 - 40 ml 09/24/20 04:31 0.9% Saline Lock 10 Ml Syringe IV UD PRN SALINE FLUSH Sotalol HCl 40 mg 09/23/20 18:00 09/24/20 05:12 Sotalol Hydrochloride 80 Mg Tablet PO 40 mg BID CONNIE Administration Trimethoprim/Sulfamethoxazole 1 tablet 09/23/20 17:00 09/24/20 07:41 Smz/Tmp Ds Tablet PO 09/28/20 23:59 1 tablet BIDCM CONNIE Administration Tuberculin PPD 5 tu 10/01/20 10:00 Tuberculin,Purif.Prot.Deriv. 50 Tu/Ml Vial ID 10/01/20 10:01 X1 ONE Warfarin Sodium 3 mg 09/23/20 17:00 09/23/20 18:32 Warfarin 3 Mg Tablet PO 3 mg [id number] [facility] Administration Warfarin Sodium 4 mg 09/24/20 17:00 Warfarin 4 Mg Tablet PO [id number] [facility] Problem List (Last Reviewed 09/24/20 @ 04:[address] Arnaud Richardson MD) Overactive bladder (Acute) Allergic rhinitis (Acute) Osteoporosis (Acute) Deep vein thrombosis (Acute) Hypothyroidism (Acute) Hyperlipidemia (Acute) Hypertension (Chronic) Atrial fibrillation (Acute) Urinary tract infection (Acute) Sepsis (Acute) Debility (Acute) Infectious encephalopathy (Acute) Cellulitis of left leg without foot (Acute) Vital Signs Temp Pulse Resp BP Pulse Ox 97.5 F L 70 14 102/67 94 09/24/20 14:20 09/24/20 14:20 09/24/20 14:20 09/24/20 14:20 09/24/20 14:20 Oxygen Delivery Method Room Air Weight: 84.368 kg Body Mass Index (BMI) 32.9 Sodium 139 mmol/L (136-145) 09/24/20 05:05 Potassium 4.1 mmol/L (3.5-5.1) 09/24/20 05:05 Chloride 108 mmol/L (98-107) H 09/24/20 05:05 Carbon Dioxide 26.0 mmol/L (21.0-32.0) 09/24/20 05:05 Anion Gap 5 (5-15) 09/24/20 05:05 BUN 16 mg/dL (7-18) 09/24/20 05:05 Creatinine 0.96 mg/dL (0.55-1.02) 09/24/20 05:05 Est GFR (MDRD) Af Amer 71 mL/min (>60) 09/24/20 05:05 Est GFR (MDRD) Non-Af 59 mL/min (>60) L 09/24/20 05:05 BUN/Creatinine Ratio 16.7 RATIO (10-20) 09/24/20 05:05 Glucose 94 mg/dL (74-106) 09/24/20 05:05 Assessment/Plan: 1. Pain: Tylenol 1000mg Q6H PO PRN pain (1-10). Please continue to monitor pain and PRN usage. 2. Shortness of breath: albuterol 1-2 puff Q6H PRN wheezing. Please continue to monitor SOB and PRN usage. 3. Left lower extremity cellulitis: Keflex 500mg Q12H PO thru 09/28/2020. Please continue to monitor infection improvement and GI symptoms. 4. Hypothyroidism: levothyroxine 200mcg PO daily. Please continue to monitor TSH (last 2.94 uIU/mL). 5. Allergic rhinitis: loratadine 10mg PO daily. Please continue to monitor S/S allergic rhinitis. 6. Skin irritation: Calmoseptine topical BID. 7. Atrial fibrillation/Hypertension: metoprolol tartrate 25mg PO BID, sotalol 40mg PO BID, warfarin 4mg PO 5 days/week (V-Ypj-Off--Mon), 3mg 2 days/week (- Mon), losartan 100mg PO daily. Please continue to follow INR (last 2.0) and monitor BP (last 131/61), HR (last 75), and S/S of bleeding. 8. Overactive bladder: Myrbetriq 50mg PO daily. Please continue to monitor blood pressure (last 131/61) and S/S of overactive bladder. 9. Osteoporosis: raloxifene 60mg PO daily. Please continue to monitor S/S of osteoporosis and S/S of blood clots. 10. ESBL E. Coli urinary tract infection: Bactrim DS PO BIDCM thru 09/28/2020. Please continue to monitor infection improvement and GI symptoms. Please closely monitor INR since pt on warfarin, and Bactrim can affect INR levels. Psychotropic Medications: None Unnecessary Medications: None Bowel Regimen: Miralax 17GM PO daily, Senna/Colace 1 tablet PO BID, Dulcolax 10mg AK daily PRN constipation. Please continue to monitor constipation and PRN usage. Date of Note:: 09/24/20
--- NOTE | 2020-09-24 16:15 | CASEMGMT ---
Social Work Met with patient for initial assessment. Discussed code status. Pt confirmed full code. MOLST form reviewed, communication to , placed in chart. Pt unsure about advanced directives, but dtr is primary contact. Explained [employer] with [employer]D and continued stay is not guaranteed with each review. The goal is for pt to return home alone and PLOF. Dtr and two sons live nearby. Pt has 1st floor set up by sleeping in lift chair. However, identified some cognitive issues with pt. Referred to [facility] to continue to follow. Radha Pride, BUREAU DIRECTOR ADDICTION TREATMENT COUNSELOR
--- NOTE | 2020-09-24 17:39 | CHAPLAIN ---
Type of Pastoral Visit _x__ Initial Visit ___ Follow-up Visit ___ On-call Visit ___ General Patient Visit ___ Spiritual Assessment ___ Family Conference ___ Bereavement ___ Rapid Response ___ Code Blue ___ Other (describe below) Pastoral Care Referral From _x__ Patient ___ Family ___ Nurse ___ Physician ___ Store Hand ___ [employer]ator [employer] ___ Other (describe below) Sacrament/Intervention _x__ Active listening ___ Anointing ___ Spiritism ___ Bereavement ___ Communion _x__ Misty exploration ___ _x__ Life review _x__ Prayer ___ Reconciliation ___ Sacrament of Sick _x__ Supportive presence ___ Wedding ___ Other (describe below) Pastoral Comments patient is pleasant and welcoming of visit; pt has holiness connection but unable to go to holiness in recent months; pt is talkative but has some difficulty remembering names, events, etc. and could not give answers to some questions; pt asks for future visits
[2020-09-24 18:12] VITALS: PULSE 70
[2020-09-25 05:23] VITALS: BP 146/81; PULSE 70; RESP 18; TEMP 36.9; O2SAT 96
[2020-09-25] MEDS: Polyethylene Glycol 3350 17 GM PACKET PO (05:26)
[2020-09-25] MEDS: Menthol/Lanolin/Calamine/Znox 113 GM Tube 1 APPLIC TOPICAL ×2 (05:26→17:14)
[2020-09-25 05:27] VITALS: PULSE 70
[2020-09-25] MEDS: Metoprolol Tartrate 25 MG Tablet PO ×2 (05:27→17:12)
[2020-09-25] MEDS: Loratadine 10 MG Tablet PO (05:27)
[2020-09-25] MEDS: Sotalol Hydrochloride 80 MG Tablet 40 MG PO ×2 (05:27→17:11)
[2020-09-25] MEDS: Levothyroxine 100 MCG Tablet 200 MCG PO (05:27)
[2020-09-25] MEDS: Mirabegron 50 MG TAB.ER.24H PO (05:28)
[2020-09-25] MEDS: Losartan Potassium 100 MG Tablet PO (05:28)
[2020-09-25] MEDS: Senna/Docusate Sodium 1 Tablet PO ×2 (05:29→17:12)
[2020-09-25] MEDS: Cephalexin 500 MG Capsule PO ×2 (05:29→17:12)
[2020-09-25] MEDS: Raloxifene HCl 60 MG Tablet PO (05:29)
[2020-09-25] MEDS: Smz/Tmp Ds Tablet 1 TABLET PO (07:45)
[2020-09-25 09:17] VITALS: PULSE 55; RESP 18; O2SAT 96
[2020-09-25 15:34] VITALS: BP 124/46; PULSE 76; RESP 16; TEMP 36.7; O2SAT 95
[2020-09-25 17:12] VITALS: BP 107/56; PULSE 87
[2020-09-25] MEDS: Smz/Tmp Ds Tablet 0.5 TABLET PO (17:12)
[2020-09-26 05:49] VITALS: BP 127/56; PULSE 70; RESP 18; TEMP 36.6; O2SAT 93
[2020-09-26 05:53] VITALS: BP 127/56; PULSE 70
[2020-09-26] MEDS: Metoprolol Tartrate 25 MG Tablet PO ×2 (05:53→18:16)
[2020-09-26] MEDS: Loratadine 10 MG Tablet PO (05:53)
[2020-09-26] MEDS: Senna/Docusate Sodium 1 Tablet PO ×2 (05:53→18:01)
[2020-09-26] MEDS: Raloxifene HCl 60 MG Tablet PO (05:54)
[2020-09-26] MEDS: Levothyroxine 100 MCG Tablet 200 MCG PO (05:54)
[2020-09-26] MEDS: Mirabegron 50 MG TAB.ER.24H PO (05:55)
[2020-09-26] MEDS: Cephalexin 500 MG Capsule PO ×2 (05:55→18:01)
[2020-09-26] MEDS: Sotalol Hydrochloride 80 MG Tablet 40 MG PO ×2 (05:55→18:04)
[2020-09-26] MEDS: Losartan Potassium 100 MG Tablet PO (05:55)
[2020-09-26] MEDS: Polyethylene Glycol 3350 17 GM PACKET PO (05:56)
[2020-09-26] MEDS: Menthol/Lanolin/Calamine/Znox 113 GM Tube 1 APPLIC TOPICAL ×2 (05:59→18:08)
[2020-09-26] MEDS: Smz/Tmp Ds Tablet 0.5 TABLET PO ×2 (09:02→18:02)
[2020-09-26 16:25] VITALS: BP 106/58; PULSE 80; RESP 16; TEMP 36.5; O2SAT 97
[2020-09-26 18:16] VITALS: BP 117/56; PULSE 90
[2020-09-26 22:30] VITALS: RESP 16
[2020-09-27 05:00] VITALS: BP 164/65; PULSE 67; RESP 15; TEMP 36.5; O2SAT 94
[2020-09-27] MEDS: Polyethylene Glycol 3350 17 GM PACKET PO (06:30)
[2020-09-27] MEDS: Losartan Potassium 100 MG Tablet PO (06:32)
[2020-09-27] MEDS: Raloxifene HCl 60 MG Tablet PO (06:32)
[2020-09-27] MEDS: Sotalol Hydrochloride 80 MG Tablet 40 MG PO ×2 (06:32→16:43)
[2020-09-27] MEDS: Loratadine 10 MG Tablet PO (06:32)
[2020-09-27 06:33] VITALS: BP 164/65; PULSE 67
[2020-09-27] MEDS: Levothyroxine 100 MCG Tablet 200 MCG PO (06:33)
[2020-09-27] MEDS: Senna/Docusate Sodium 1 Tablet PO ×2 (06:33→16:44)
[2020-09-27] MEDS: Cephalexin 500 MG Capsule PO ×2 (06:33→16:44)
[2020-09-27] MEDS: Metoprolol Tartrate 25 MG Tablet PO (06:33)
[2020-09-27] MEDS: Mirabegron 50 MG TAB.ER.24H PO (06:34)
[2020-09-27] MEDS: Menthol/Lanolin/Calamine/Znox 113 GM Tube 1 APPLIC TOPICAL ×2 (06:41→16:47)
[2020-09-27] MEDS: Smz/Tmp Ds Tablet 0.5 TABLET PO ×2 (09:09→16:44)
[2020-09-27 10:00] VITALS: RESP 18
[2020-09-27 15:32] VITALS: BP 94/52; PULSE 77; RESP 16; TEMP 36.7; O2SAT 96
[2020-09-27 16:47] VITALS: BP 94/52; PULSE 77
[2020-09-28 05:00] VITALS: BP 143/63; PULSE 70; RESP 16; TEMP 36.7; O2SAT 96
[2020-09-28] MEDS: Sotalol Hydrochloride 80 MG Tablet 40 MG PO ×2 (05:38→17:00)
[2020-09-28] MEDS: Levothyroxine 100 MCG Tablet 200 MCG PO (05:38)
[2020-09-28] MEDS: Mirabegron 50 MG TAB.ER.24H PO (05:38)
[2020-09-28] MEDS: Loratadine 10 MG Tablet PO (05:39)
[2020-09-28] MEDS: Cephalexin 500 MG Capsule PO ×2 (05:39→17:00)
[2020-09-28 05:40] VITALS: PULSE 70
[2020-09-28] MEDS: Senna/Docusate Sodium 1 Tablet PO ×2 (05:40→17:02)
[2020-09-28] MEDS: Menthol/Lanolin/Calamine/Znox 113 GM Tube 1 APPLIC TOPICAL ×2 (05:40→17:00)
[2020-09-28] MEDS: Metoprolol Tartrate 25 MG Tablet PO ×2 (05:40→17:00)
[2020-09-28] MEDS: Losartan Potassium 100 MG Tablet PO (05:40)
[2020-09-28] MEDS: Raloxifene HCl 60 MG Tablet PO (05:40)
[2020-09-28 06:04] LABS: International Normalized Ratio 2.8; Prothrombin Time (Protime)PT. 28.8 SECONDS (11.7-14.9)
[2020-09-28] MEDS: Smz/Tmp Ds Tablet 0.5 TABLET PO ×2 (07:49→17:00)
[2020-09-28 10:56] VITALS: PULSE 82; RESP 16; O2SAT 96
[2020-09-28 15:51] VITALS: BP 113/50; PULSE 71; RESP 14; TEMP 37.2; O2SAT 96
[2020-09-28 17:00] VITALS: PULSE 71
[2020-09-29 05:41] VITALS: BP 152/73; PULSE 73; RESP 16; TEMP 36.6; O2SAT 94
[2020-09-29] MEDS: Menthol/Lanolin/Calamine/Znox 113 GM Tube 1 APPLIC TOPICAL ×2 (05:46→17:18)
[2020-09-29] MEDS: Levothyroxine 100 MCG Tablet 200 MCG PO (05:47)
[2020-09-29 05:48] VITALS: BP 152/73; PULSE 73
[2020-09-29] MEDS: Losartan Potassium 100 MG Tablet PO (05:48)
[2020-09-29] MEDS: Sotalol Hydrochloride 80 MG Tablet 40 MG PO ×2 (05:48→17:15)
[2020-09-29] MEDS: Metoprolol Tartrate 25 MG Tablet PO ×2 (05:48→17:15)
[2020-09-29] MEDS: Mirabegron 50 MG TAB.ER.24H PO (05:48)
[2020-09-29] MEDS: Raloxifene HCl 60 MG Tablet PO (05:49)
[2020-09-29] MEDS: Loratadine 10 MG Tablet PO (05:49)
--- NOTE | 2020-09-29 07:38 | NURSING ---
Alarm sounds and this nurse enters room. Pt standing requesting to go to the bathroom. This nurse obtained walker. Gait slightly unsteady. Instructed pt to pull cord when finished toileting and attempted to complete another unassisted transfer. CAFE LEAD assisted pt back to chair and breakfast tray set upl.
[2020-09-29 08:27] VITALS: PULSE 70; RESP 18; O2SAT 96
[2020-09-29 09:25] LABS: Mucous, Urine 0 SEEN /hpf (<or=2+); Red Blood Cells-Urine 0 SEEN /hpf (0-5); White Blood Cells 0 SEEN /hpf (0-5)
[2020-09-29 09:30] LABS: Color, Urine Yellow (Yellow); Glucose, Dipstick Normal (Normal); Ketone-Dipstick Negative (Negative); Leukocyte Esterase-Dipstick Negative /ul (Negative); Nitrite-Dipstick Negative (Negative); Occult Blood-Urine Negative /ul (Negative); Protein-Dipstick Negative (Negative); Specific Gravity, Urine 1.015 (1.002-1.030); Urine Bilirubin Dipstick Negative (Negative); Urine Clarity Clear (Clear); Urine Urobilinogen Normal (Normal)
[2020-09-29 09:39] LABS: Bacteria RARE /hpf (None Seen); Squamous Epithelial Cells - UA 0-5 SEEN /hpf (5-10)
--- NOTE | 2020-09-29 14:19 | CASEMGMT ---
Social Work IDT met with patient, dtr, son in person and other son via conference call for care plan meeting. Discussed patient's progress in therapy and nursing. Pt progressing well. ST and IDT expressed concern with pt returning home alone r/t cognition and poor safety awareness. Explained pt gets disoriented, attempts to get out of chair, provides inconsistent/inaccurate information to staff members, i.e. home set up, and does not remember to use call light for assistance. IDT recommends 24/7 supervision to return home safely. Children explained their daily routine with pt - pt is typically with a child from 8am to 7pm. IDT comfortable with explained scenario, just recommending an aide once they leave at night and throughout the night, as pt still exhibits poor safety and disorientation at night. Provided nonskilled HHC list to dtr and encouraged to begin contacting agencies to secure assistance. Dtr inquired about pt returning to baseline at return of own environment and the need for assistance. Explained that is a possibility, but typically pt's still have difficulty with that transition home. Suggested to have assistance in place for a week or two then use judgement to determine if that is still necessary. Also explained pt is not cleared to drive at [place] per Dr and ST recommended to complete simulated driving test prior to return to ensure safety. Children agreeable. All children and pt expressed understanding. Explained [employer] insurance with NRD 09/28 and continued stay is not guaranteed. Pt does have 3 steps to enter that therapy will practice. SW to order skilled HHC PT/OT/ST/DONOHUE and FWW at [place]. Will continue to follow. Radha Pride, KELSI CISSEW
[2020-09-29 15:54] VITALS: BP 127/82; PULSE 71; RESP 18; TEMP 36.8; O2SAT 97
[2020-09-29 17:15] VITALS: PULSE 71
[2020-09-29] MEDS: Senna/Docusate Sodium 1 Tablet PO (17:15)
[2020-09-30 05:54] VITALS: BP 127/66; PULSE 70; RESP 18; TEMP 36.7; O2SAT 95
[2020-09-30] MEDS: Sotalol Hydrochloride 80 MG Tablet 40 MG PO ×2 (05:56→18:12)
[2020-09-30] MEDS: Losartan Potassium 100 MG Tablet PO (05:57)
[2020-09-30] MEDS: Menthol/Lanolin/Calamine/Znox 113 GM Tube 1 APPLIC TOPICAL ×2 (05:57→18:13)
[2020-09-30] MEDS: Loratadine 10 MG Tablet PO (05:57)
[2020-09-30 05:58] VITALS: BP 127/66; PULSE 70
[2020-09-30] MEDS: Metoprolol Tartrate 25 MG Tablet PO ×2 (05:58→18:13)
[2020-09-30] MEDS: Raloxifene HCl 60 MG Tablet PO (05:58)
[2020-09-30] MEDS: Levothyroxine 100 MCG Tablet 200 MCG PO (05:59)
[2020-09-30] MEDS: Mirabegron 50 MG TAB.ER.24H PO (05:59)
[2020-09-30] MEDS: Senna/Docusate Sodium 1 Tablet PO (05:59)
--- NOTE | 2020-09-30 14:05 | CASEMGMT ---
Addendum entered by Radha Pride 10/01/20 11:32: HHC unable to accept as pt will not be homebound with going to work with sons. Contacted dtr to explain and pt would need outpatient therapy. Dtr agreeable to [facility]. Referral made for PT/OT/ST. Dtr also requesting 3-in-1 commode. [place] [facility] to pt room. Plan: DC home 10/03 [facility] PT/OT/ST, FWW, [facility] Original Note: Social Work Spoke with pt and dtr that insurance issued LCD 10/02, DC 10/03. Both agreeable. Provided list of skilled HHC that meets patients need, accepted insurance and in desired area. Dtr agreeable to [facility]. Referral made for PT/OT/ST/DONOHUE. [place] [facility] [place]. Dtr to transport. Plan: DC home alone with family support and 24/7 supervision 10/03, [facility] PT/OT/ST/DONOHUE, FWW Radha Pride, ENVIRONMENTAL PROTECTION ECONOMIST MITCH
--- NOTE | 2020-09-30 14:38 | CHAPLAIN ---
Type of Pastoral Visit ___ Initial Visit _x__ Follow-up Visit ___ On-call Visit ___ General Patient Visit ___ Spiritual Assessment ___ Family Conference ___ Bereavement ___ Rapid Response ___ Code Blue ___ Other (describe below) Pastoral Care Referral From _x__ Patient ___ Family ___ Nurse ___ Physician ___ Rn Long Term Care ___ Assistant ___ Other (describe below) Sacrament/Intervention _x__ Active listening ___ Anointing ___ Mormonism ___ Bereavement ___ Communion ___ Misty exploration ___ ___ Life review ___ Prayer ___ Reconciliation ___ Sacrament of Sick ___ Supportive presence ___ Wedding ___ Other (describe below) Pastoral Comments
[2020-09-30 15:01] VITALS: BP 103/50; PULSE 79; RESP 16; TEMP 36.7; O2SAT 96
[2020-09-30 18:13] VITALS: BP 110/58; PULSE 80
--- NOTE | 2020-09-30 20:09 | DS.PCM_ITS ---
Providers Date of Admission: 09/23/20 Primary Care Physician: Melvin Weber Reason For Visit: ENCEPHALOPATHY UTI, CELLULITIES LEFT LEG Diagnosis Discharge Diagnosis (1) Debility: Status: Acute Code(s): R53.81 - Other malaise (2) Infectious encephalopathy: Status: Acute Code(s): G93.49 - Other encephalopathy; B99.9 - Unspecified infectious disease (3) Sepsis: Status: Acute Code(s): A41.9 - Sepsis, unspecified organism (4) Urinary tract infection: Status: Acute Code(s): N39.0 - Urinary tract infection, site not specified (5) Cellulitis of left leg without foot: Status: Acute Code(s): L03.116 - Cellulitis of left lower limb (6) Atrial fibrillation: Status: Acute Code(s): I48.91 - Unspecified atrial fibrillation (7) Hypertension: Status: Chronic Code(s): I10 - Essential (primary) hypertension (8) Hyperlipidemia: Status: Acute Code(s): E78.5 - Hyperlipidemia, unspecified (9) Hypothyroidism: Status: Acute Code(s): E03.9 - Hypothyroidism, unspecified (10) Deep vein thrombosis: Status: Acute Code(s): I82.409 - Acute embolism and thrombosis of unspecified deep veins of unspecified lower extremity (11) Osteoporosis: Status: Acute Code(s): M81.0 - Age-related osteoporosis without current pathological fracture (12) Allergic rhinitis: Status: Acute Code(s): J30.9 - Allergic rhinitis, unspecified (13) Overactive bladder: Status: Acute Code(s): N32.81 - Overactive bladder Medications at Discharge Home Medications metoprolol tartrate 25 mg PO BID 05/15/15 raloxifene 60 mg PO DAILY 06/07/17 losartan 100 mg tablet 100 mg PO DAILY 06/19/17 albuterol sulfate 90 mcg/actuation aerosol inhaler 1 - 2 puff INHALATION Q6H PRN #8.5 g 07/06/19 sotalol 80 mg tablet 40 mg PO BID tab 07/06/19 warfarin 3 mg tablet 3 mg PO SUWE 07/06/19 Myrbetriq 50 mg PO DAILY 09/21/20 fexofenadine 180 mg PO DAILY 09/21/20 levothyroxine 200 mcg PO DAILY 09/21/20 warfarin 4 mg PO MOTUTHFRSA 09/21/20 acetaminophen 1,000 mg PO Q6H PRN PRN #0 tab 09/30/20 Hospital Course Operations None Procedures None Summary of Care Provided Minutes Spent on Discharge: 35 Hospital Course: ?85 year old female with below past medical history hospital ized for infectious encephalopathy secondary to ESBL E. Coli urinary tract infection, cellulitis of left lower extremity, admitted to TCU with debility, here for rehabilitation, strengthening, prior to discharge home alone. Discharge home alone with family support and 05/12 supervision 10/03/2020, [facility] PT/OT/ST/DONOHUE, Front Wheeled Walker. Physical Exam Const alert and oriented x3 General Appearance: cooperative HEENT normocephalic Eyes PERRL and EOMs intact bilaterally Neck supple, no JVD and no carotid bruits Resp normal respiratory effort, normal air movement and clear to auscultation bilaterally Cardio regular rate and regular rhythm GI normal to inspection, nondistended, normoactive bowel sounds, non-tender and non -distended Extremity normal capillary refill General Extremity: Negative for edema Skin no rashes or lesions noted General Skin Exam: no breakdown Psych affect normal Appearance: appropriate ABG / Lab / Microbiology Data Result Diagrams: 09/24/20 05:05 09/24/20 05:05 Microbiology: Microbiology 09/29/20 09:15 Urine Culture - Preliminary Urine, Catheterized Culture exhibits no growth. Microbiology 09/29/20 09:15 Urine, Catheterized Urine Culture - Preliminary Culture exhibits no growth. D/C Instructions Discharge Diet: No restrictions Discharge Activity: Return to Normal Activity, May Shower and Use Walker Weight Bearing Status: Weight bearing as tolerated Call your doctor if you observe: Fever of 101 or Higher, Inability to urinate, Inability to have a bowel movement, Shortness of breath, Dizziness, Chest pain and Uncontrolled pain Additional Instructions: Discharge home alone with family support and 05/12 supervision 10/03/2020, [facility] PT/OT/ST/DONOHUE, Front Wheeled Walker. Please Follow Up With: Melvin Weber MD When: 1 week. Meaningful Use Info Meaningful Use Diagnoses (Choose all that apply): None applicable Discharge Plan Admission Admit Date/Time: 09/23/20 16:02 Primary Reason for Your Visit: Debility Attending Provider: Arnaud Richardson Chi Primary Care Provider: Melvin Weber Instructions Additional Instructions / Restrictions: Discharge home alone with family support and 05/12 supervision 10/03/2020, [facility] PT/OT/ST/DONOHUE, Front Wheeled Walker. Discharge Orders/Prescriptions Prescriptions: New acetaminophen 500 mg Tablet 1,000 mg PO Q6H PRN PRN (Reason: Pain Score 1-10) Qty: 0 RF: 0 Continued losartan 100 mg tablet 100 mg PO DAILY RF: 0 warfarin [Jantoven] 3 mg tablet 3 mg PO SUWE RF: 0 sotalol 80 mg tablet 40 mg PO BID RF: 0 albuterol sulfate [ProAir HFA] 90 mcg/actuation HFA aerosol inhaler 1 - 2 puff inhalation Q6H PRN (Reason: shortness of breath or wheezing) Qty: 8.5 RF: 1 metoprolol tartrate 25 MG tablet 25 mg PO BID RF: 0 raloxifene 60 MG tablet 60 mg PO DAILY RF: 0 fexofenadine 180 mg Tablet 180 mg PO DAILY RF: 0 Myrbetriq 50 mg Tablet Extended Release 24 Hr 50 mg PO DAILY RF: 0 levothyroxine 200 mcg tablet 200 mcg PO DAILY RF: 0 warfarin 4 mg Tablet 4 mg PO MOTUTHFRSA RF: 0 Discontinued acetaminophen [Tylenol Extra Strength] 500 mg tablet 500 mg PO Q6H PRN (Reason: Pain) RF: 0 sulfamethoxazole-trimethoprim 800-160 mg tablet 1 tab PO BID RF: 0 cephalexin 500 mg capsule 500 mg PO Q6 RF: 0 Referrals / Follow Up: Melvin Weber [Primary Care Provider] - Disposition Disposition (needs filled in before D/C Order can be placed): Home, self care
[2020-10-01 05:46] LABS: Absolute Lymphocyte Count 1.74 X10^3/uL (0.83-4.51); Absolute Neutrophil Count 4.5 X10^3/uL (2.0-7.7); Basophil# 0.04 X10^3/uL; Basophil% 0.5 % (0-1); Eosinophil# 0.46 X10^3/uL; Eosinophils% 6.1 % (0-5); Hematocrit 37.1 % (37-47); Hemoglobin 11.6 g/dL (12.0-15.0); Lymphocyte # 1.74 X10^3/ul (0.83-4.51); Lymphocyte % 23.2 % (19-41); Mean Corp Hgb Conc 31.3 g/dL (32-36); Mean Corpuscular Hgb 28.9 pg (27.0-32.0); Mean Corpuscular Volume 92.5 fL (81-99); Mean Platelet Vol. 10.3 fl (6.2-12.0); Monocyte# 0.72 X10^3/uL; Monocyte% 9.6 % (0-10); NRBC Flagged by Analyzer 0 % (0-5); Neutrophil # 4.51 X10^3/uL (2.7-7.7); Neutrophil % 60.3 % (47-70); Platelet Count 422 K/mm3 (150-450); RBC Distribution Width CV 13.5 % (11.6-14.6); RBC Distribution Width SD 46.4 fl (35.1-43.9); Red Blood Count 4.01 M/mm3 (4.2-5.4); White Blood Count 7.5 K/mm3 (4.4-11.0)
[2020-10-01 06:08] VITALS: BP 127/55; PULSE 74; RESP 17; TEMP 36.9; O2SAT 94
[2020-10-01] MEDS: Levothyroxine 100 MCG Tablet 200 MCG PO (06:08)
[2020-10-01] MEDS: Sotalol Hydrochloride 80 MG Tablet 40 MG PO ×2 (06:08→18:11)
[2020-10-01] MEDS: Raloxifene HCl 60 MG Tablet PO (06:08)
[2020-10-01 06:09] VITALS: BP 122/55; PULSE 74
[2020-10-01 06:09] LABS: Anion Gap 6 (5-15); BUN 32 mg/dL (7-18); BUN/Creat Ratio 26.9 RATIO (10-20); Calcium,Total 8.7 mg/dL (8.5-10.1); Chloride 106 mmol/L (98-107); Creatinine, Serum 1.19 mg/dL (0.55-1.02); EST Glomerular Filtration Rate 46 mL/min (>60); Est Glom Filt Rate - Afr Amer 55 mL/min (>60); Estimated Creatinine Clearance 28.59 ml/min; Glucose 93 mg/dL (74-106); Potassium 4.9 mmol/L (3.5-5.1); Sodium Level 139 mmol/L (136-145)
[2020-10-01] MEDS: Mirabegron 50 MG TAB.ER.24H PO (06:09)
[2020-10-01] MEDS: Losartan Potassium 100 MG Tablet PO (06:09)
[2020-10-01] MEDS: Menthol/Lanolin/Calamine/Znox 113 GM Tube 1 APPLIC TOPICAL ×2 (06:09→18:12)
[2020-10-01] MEDS: Loratadine 10 MG Tablet PO (06:09)
[2020-10-01] MEDS: Senna/Docusate Sodium 1 Tablet PO (06:09)
[2020-10-01] MEDS: Metoprolol Tartrate 25 MG Tablet PO ×2 (06:09→18:10)
[2020-10-01] MEDS: Polyethylene Glycol 3350 17 GM PACKET PO (06:10)
[2020-10-01 06:22] LABS: International Normalized Ratio 2.5; Prothrombin Time (Protime)PT. 26.2 SECONDS (11.7-14.9)
[2020-10-01] MEDS: Tuberculin,Purif.prot.deriv. 50 TU/ML Vial 5 ML ID (11:46)
[2020-10-01 15:31] VITALS: PULSE 93; RESP 18; O2SAT 97
[2020-10-01 18:10] VITALS: BP 147/70; PULSE 87
[2020-10-02 05:00] VITALS: BP 118/53; PULSE 74; RESP 16; TEMP 37.1; O2SAT 94
[2020-10-02] MEDS: Levothyroxine 100 MCG Tablet 200 MCG PO (05:06)
[2020-10-02] MEDS: Losartan Potassium 100 MG Tablet PO (05:06)
[2020-10-02] MEDS: Sotalol Hydrochloride 80 MG Tablet 40 MG PO ×2 (05:06→17:37)
[2020-10-02] MEDS: Loratadine 10 MG Tablet PO (05:07)
[2020-10-02] MEDS: Raloxifene HCl 60 MG Tablet PO (05:07)
[2020-10-02] MEDS: Mirabegron 50 MG TAB.ER.24H PO (05:07)
[2020-10-02] MEDS: Polyethylene Glycol 3350 17 GM PACKET PO (05:09)
[2020-10-02] MEDS: Senna/Docusate Sodium 1 Tablet PO ×2 (05:09→17:38)
[2020-10-02] MEDS: Menthol/Lanolin/Calamine/Znox 113 GM Tube 1 APPLIC TOPICAL ×2 (05:10→17:40)
[2020-10-02 05:20] VITALS: BP 118/53; PULSE 74
[2020-10-02] MEDS: Metoprolol Tartrate 25 MG Tablet PO ×2 (05:20→17:37)
[2020-10-02 17:37] VITALS: BP 117/60; PULSE 75
[2020-10-02 18:01] VITALS: BP 112/48; PULSE 79; RESP 18; TEMP 37.1; O2SAT 95
[2020-10-03] MEDS: Sotalol Hydrochloride 80 MG Tablet 40 MG PO (05:06)
[2020-10-03 05:07] VITALS: BP 150/57; PULSE 71
[2020-10-03] MEDS: Raloxifene HCl 60 MG Tablet PO (05:07)
[2020-10-03] MEDS: Mirabegron 50 MG TAB.ER.24H PO (05:07)
[2020-10-03] MEDS: Senna/Docusate Sodium 1 Tablet PO (05:07)
[2020-10-03] MEDS: Loratadine 10 MG Tablet PO (05:07)
[2020-10-03] MEDS: Losartan Potassium 100 MG Tablet PO (05:07)
[2020-10-03] MEDS: Levothyroxine 100 MCG Tablet 200 MCG PO (05:07)
[2020-10-03] MEDS: Metoprolol Tartrate 25 MG Tablet PO (05:07)
[2020-10-03] MEDS: Menthol/Lanolin/Calamine/Znox 113 GM Tube 1 APPLIC TOPICAL (05:08)
[2020-10-03 05:13] VITALS: BP 150/57; PULSE 71; RESP 18; TEMP 37.7; O2SAT 95
[2020-10-03 09:27] VITALS: PULSE 67; RESP 18; O2SAT 96
[2020-10-03 11:00] VITALS: BP 100/51; PULSE 85; RESP 18; TEMP 35.9; O2SAT 96
--- NOTE | 2020-10-06 09:13 | MDS.RN ---
Information for the mds was obtained from review of the clinical record, interview of resident, staff, and direct observation of resident's care.
== END 2020-10-03 10:30 | disposition home or self-care (01) | DRG 690 ==
PROVIDERS: Admitting Provider Family Medicine Geriatric Medicine; Visit Provider Family Medicine Geriatric Medicine
DX: N39.0 Urinary tract infection, site not specified (principal); L03.116 Cellulitis of left lower limb; Z16.12 Extended spectrum beta lactamase (ESBL) resistance; B96.20 Unspecified Escherichia coli [E. coli] as the cause of diseases classified elsewhere; N32.81 Overactive bladder; Z23 Encounter for immunization; E03.9 Hypothyroidism, unspecified; M81.0 Age-related osteoporosis without current pathological fracture; I10 Essential (primary) hypertension; E78.5 Hyperlipidemia, unspecified; I48.0 Paroxysmal atrial fibrillation; Z79.899 Other long term (current) drug therapy; Z79.01 Long term (current) use of anticoagulants
CPT/HCPCS: 36415; 80048; 81001; 85025; 85610; 87086; 87635; 92507; 92523; 97110; 97116; 97162; 97166; 97530; 97535; 97802; G0009; 90670; U0002

== ENCOUNTER 2020-12-04 13:00 | Outpatient (RCR) | payer MEDICARE, SELFPAY ==
--- NOTE | 2020-10-05 14:21 | HP.PTREVAL ---
Dr. Arnaud Richardson MD, It has been my pleasure to treat SG CARLISLE over the last 1 visits for DEBIITY,INCREASED CONFUSION,DECLINE IN ADL'S. Please see the progress note below for an update on the physical therapy plan of care! Plan Plan: PT INTERVENTIONS GAIT TRAINING,ENDURANCE PROGRAM,BALANCE PROGRAM,AND STRENGTHENING Goals Goal 1:: Patient to be I with HEP Goal Time Frame: 4-6 Weeks Goal 2:: Patient to improve BLE to 4/5 quads/hams 4/5,hip flexion /abd 4-/5 to improve gait Goal Time Frame: 4-6 Weeks Goal 3:: Patient to improve CATSIB by 5-10 points or > to improve balance. Goal Time Frame: 4-6 Weeks Goal 4:: Patient to improve LFES SCORE by 5-10 point or > to improve gait Goal Time Frame: 4-6 Weeks Goal 5:: Patient to improve functional gait assessment score by 5 point sor > to improve balance/gait Anticipated Interventions Patient/Client Instruction: Educate patient on: Condition, Plan of Care For the Purpose of:: To decrease pain, To decrease swelling/inflammation, To improve muscle performance and motor function, To improve ability to perform ADL's, To increase tolerance to activity/condition/position, To improve performance and independence with ADL's, To decrease level of supervision to perform tasks, To improve ability of physical actions for home/community/work/leisure, To improve gait and locomotor functions, To improve endurance, To improve balance, To improve safety with gait, To improve tolerance to ADL's Therapeutic Exercise to Include: Strength training, Endurance training, Balance training, Postural training, Flexibilty training, Gait and locomotor training Comment: BLE For the Purpose of:: To decrease pain, To improve muscle performance and motor function, To improve ability to perform ADL's, To increase tolerance to activity/condition/position, To improve performance and independence with ADL's, To improve ability of physical actions for home/community/work/leisure, To improve gait and locomotor functions, To improve endurance, To improve balance, To improve safety with gait, To assume or resume ADL's, To reduce risk of recurrence, To improve safety, To improve tolerance to ADL's Please do not hesitate to contact me at [phone] by phone or if you have questions or concerns regarding this new plan of care! Sincerely, Jhon King, PT, Cert MDT, OCS
--- NOTE | 2020-10-05 14:21 | HP.PTEVAL ---
Patient's Visit Information SG CARLISLE is a 85 year old F referred to Physical Therapy by Dr. Arnaud Richardson MD with a diagnosis of DEBIITY,INCREASED CONFUSION,DECLINE IN ADL'S. Date of Evaluation: 10/05/20 Physical Therapist: Jhon King, PT, Cert MDT, OCS - Visit Plan Frequency: 2x /Week Duration: 4 Weeks Plan: PT INTERVENTIONS GAIT TRAINING,ENDURANCE PROGRAM,BALANCE PROGRAM,AND STRENGTHENING - Subjective This 85 y/o female presents to physical therapy debility. Patient UTI 2weeks okay unable to walk or stand ,thus went to ER at [facility] . Patient had confusion once became stable went TCU fot OT/PT/SPEECH and d/c this Monday . Patient has no falls. Patient is oriented today x3. Patient denies pain . Patient denies parathesia/tingling. Patient plans to have 24 care supervision.Patient has no falls. Patient needs assist with bathing, dressing . Patient currently is doing sponge bath and plans to do HHC to assist with bathing. Tub/shower with bench ,hand rails ,elevated seat.Patient uses cane for balance but has fww as needed. Patient lives in bi-level stays on main level but has 2 steps. Patient condtion affects ADL's and function . SOCIAL: 24 supervsion - Objective POSTURE: mild foward posture. GAIT: reciprocal pattern with cane using 2 point gait slow kirti unsteady hips/knees flexed. BALANCE : fair + with fww. NEURO: intact ,denies parathesia/tingling. STAIRS: one step at time with rail. MMT: quads/hams 4-/5,hip abd 3+/5,hip flexion 3+/5,ankl e4/5. FLEXABLITY: hmas mild tight - Balance Scores Functional Gait Assessment Score: 6 % Disability: 80.0000 CATSIB Score (Max score 120 seconds): 15 - Goals Goal 1:: Patient to be I with HEP Goal Time Frame: 4-6 Weeks Goal 2:: Patient to improve BLE to 4/5 quads/hams 4/5,hip flexion /abd 4-/5 to improve gait Goal Time Frame: 4-6 Weeks Goal 3:: Patient to improve CATSIB by 5-10 points or > to improve balance. Goal Time Frame: 4-6 Weeks Goal 4:: Patient to improve LFES SCORE by 5-10 point or > to improve gait Goal Time Frame: 4-6 Weeks Goal 5:: Patient to improve functional gait assessment score by 5 point sor > to improve balance/gait - Rehabilitation Potential Physical Therapy Diagnosis: This patient has multiple comrbities along with decrease balance ,strength,endurance which decrease ADLS' and requires 24 supervision at home thus will benifit from skilled PT. Rehabilitation Potential: Good - Anticipated Interventions Patient/Client Instruction: Educate patient on: Condition, Plan of Care For the Purpose of:: To decrease pain, To decrease swelling/inflammation, To improve muscle performance and motor function, To improve ability to perform ADL's, To increase tolerance to activity/condition/position, To improve performance and independence with ADL's, To decrease level of supervision to perform tasks, To improve ability of physical actions for home/community/work/leisure, To improve gait and locomotor functions, To improve endurance, To improve balance, To improve safety with gait, To improve tolerance to ADL's Therapeutic Exercise to Include: Strength training, Endurance training, Balance training, Postural training, Flexibilty training, Gait and locomotor training Comment: BLE For the Purpose of:: To decrease pain, To improve muscle performance and motor function, To improve ability to perform ADL's, To increase tolerance to activity/condition/position, To improve performance and independence with ADL's, To improve ability of physical actions for home/community/work/leisure, To improve gait and locomotor functions, To improve endurance, To improve balance, To improve safety with gait, To assume or resume ADL's, To reduce risk of recurrence, To improve safety, To improve tolerance to ADL's Thank you for the opportunity to evaluate your patient. For Medicare and Medicare HMO plans, please review the plan of care and approve it. It will need to be FAXED BACK to us at [phone] for Medicare purposes. For Medicare only, by signing this I certify the plan of care. Please let me know if there are questions or concerns regarding this plan of care. Physician Signature: Date:
--- NOTE | 2020-10-14 16:44 | HP.OTEVAL ---
Patient's Visit Information SG CARLISLE is a 85 year old F, referred to Occupational Therapy by Dr. Arnaud Richardson MD, with a diagnosis of debility. Date of Evaluation: 10/14/20 Occupational Therapist: Jessie Batres, CONSTANZAR/L, CHT - Subjective This 85 y/o female presents to physical therapy debility. Patient UTI 2weeks okay unable to walk or stand ,thus went to ER at [facility] . Patient had confusion once became stable went TCU for OT/PT/SPEECH and d/c this Monday . Patient has no falls. Patient is oriented today x3. Patient denies pain . Patient denies paresthesia/tingling. Patient plans to have 24 care supervision.Patient has no falls. Patient needs assist with bathing, dressing . Patient currently is doing sponge bath and plans to do HHC to assist with bathing. Tub/shower with bench ,handrails ,elevated seat.pt has lift chair and sleeps in it. Patient uses cane for balance but has fww as needed. Patient lives in bi-level stays on main level but has 2 steps. Family with pt today states she is doing better. but notices pt has difficlty getting in and out of her sons trucks Prior to her admission pt was able to do IND. SOCIAL: 24 supervision since D/C from hospital. pts son states pt goes with him on his work tasks, and would get in and out of his truck 2-3 x every few days- now pt needs extra assistance in and out of the truck. - ADLs Comments: pt has shower chair - pt has assistance with family. pt has straight cane and states she has noticed difficulty with balance. pt sleeps in a recliner. wears compression socks - difficulty to get on - ROM Shoulder: right WFL left 100 pt denies any hx of left shoulder injury Elbow: right WFL left WFL Forearm: right WFL left WFL Wrist: right WFL left WFL ROM Comments: pt demo ROM of UB WFL. 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 eq. for her ADLs and IADls as needed to increase pts IND. pt denies needs for further ad. eq. or home modification. pt demo no need for skilled OT services at this time. pt will work with PT for increasing pts LB strength for ambulation and balance. - Anticipated Interventions Other Other Interventions: pt to see PT for debility of LE strength and endurance - Visit Plan TEXT: Thank you for the opportunity to evaluate your patient. For Medicare and Medicare HMO plans, please review the plan of care and approve it. It will need to be FAXED BACK to us at [phone] for Medicare purposes. Please let me know if there are questions or concerns regarding this plan of care. Physician Signature: Date:
--- NOTE | 2020-12-04 13:39 | HP.PTDCSUM ---
It has been my pleasure to treat SG CARLISLE referred by Dr. Arnaud Richardson MD, with the diagnosis of DEBIITY,INCREASED CONFUSION,DECLINE IN ADL'S for a total of 10 visit(s). Discharge Date: 12/04/20 Please see the following information for a summary of their discharge status. Subjective: Doing better ,Plan to do join renay sanchez % Improvement: 50 Objective/Function: POSTURE: MILD FOWARD POSTURE. GAIT: RECIPROCAL PATERN WITH CANE 2 POINT. BALANCE: GOOD-. MMT: 4/5 Goal 1:: Patient to be I with HEP Goal 2:: Patient to improve BLE to 4/5 quads/hams 4/5,hip flexion /abd 4-/5 to improve gait Goal Progress: Goal Met Goal 3:: Patient to improve CATSIB by 5-10 points or > to improve balance. Goal Progress: Goal Met Goal 4:: Patient to improve LFES SCORE by 5-10 point or > to improve gait Goal Progress: Goal Met Goal 5:: Patient to improve functional gait assessment score by 5 point sor > to improve balance/gait Goal Progress: Goal Met Plan: D/C TO HEP AND GYM PROGRAM Discharge Comments: [facility]P AND [facility] If there are questions or concerns regarding this patient's physical therapy, please feel free to call me at [phone]. Thank you for the referral of this patient. Sincerely, Jhon King, PT, Cert MDT, OCS
== END 2020-12-04 19:00 | disposition home or self-care (01) ==
LOC: PT 13:00
PROVIDERS: Referring Provider Family Medicine Geriatric Medicine; Visit Provider Family Medicine Geriatric Medicine
DX: R53.81 Other malaise (principal); R41.0 Disorientation, unspecified; R41.841 Cognitive communication deficit
CPT/HCPCS: 92507; 92523; 97110; 97162; 97164; 97166

== ENCOUNTER 2020-12-10 13:01 | Outpatient (RCR) | payer MEDICARE, SELFPAY ==
[2019-07-06 13:02] VITALS: BMI 32.1
[2020-11-13 15:29] LABS: Thyroid Stim Hormone (TSH) 1.34 uIU/mL (0.358-3.74)
[2020-12-10 15:21] LABS: Absolute Lymphocyte Count 1.62 X10^3/uL (0.83-4.51); Absolute Neutrophil Count 4.9 X10^3/uL (2.0-7.7); Basophil# 0.06 X10^3/uL; Basophil% 0.8 % (0-1); Eosinophil# 0.28 X10^3/uL; Eosinophils% 3.7 % (0-5); Hematocrit 34.7 % (37-47); Lymphocyte # 1.62 X10^3/ul (0.83-4.51); Lymphocyte % 21.7 % (19-41); Mean Corp Hgb Conc 31.7 g/dL (32-36); Mean Corpuscular Hgb 29.6 pg (27.0-32.0); Mean Corpuscular Volume 93.5 fL (81-99); Monocyte# 0.58 X10^3/uL; Monocyte% 7.8 % (0-10); NRBC Flagged by Analyzer 0 % (0-5); Neutrophil % 65.6 % (47-70); Platelet Count 307 K/mm3 (150-450); RBC Distribution Width CV 14.2 % (11.6-14.6); RBC Distribution Width SD 48.8 fl (35.1-43.9); Red Blood Count 3.71 M/mm3 (4.2-5.4); White Blood Count 7.5 K/mm3 (4.4-11.0)
[2020-12-10 15:28] LABS: Prothrombin Time (Protime)PT. 30.2 SECONDS (11.7-14.9)
[2020-12-10 15:49] LABS: ALB/GLOB Ratio 0.8 RATIO (0.9-2.4); AST(SGOT) 20 U/L (15-37); Alanine Aminotransfer ALT/SGPT 14 U/L (13-56); Alkaline Phosphatase 72 U/L (45-117); Anion Gap 4 (5-15); BUN 12 mg/dL (7-18); BUN/Creat Ratio 13.1 RATIO (10-20); Calcium,Total 8.3 mg/dL (8.5-10.1); Chloride 108 mmol/L (98-107); Creatinine, Serum 0.92 mg/dL (0.55-1.02); EST Glomerular Filtration Rate 62 mL/min (>60); Est Glom Filt Rate - Afr Amer 75 mL/min (>60); Globulin 3.6 g/dL (2.2-4.2); Glucose 111 mg/dL (74-106); Potassium 3.9 mmol/L (3.5-5.1); Protein, Total 6.6 g/dL (6.4-8.2); Sodium Level 141 mmol/L (136-145)
[2020-12-13 20:07] LABS: Red Blood Cell Count Test/G6PD 3.59 x10E6/uL (3.77-5.28)
[2020-12-13 20:35] LABS: G6PD Quant Test 294 (127-427)
== END 2020-12-10 18:00 | disposition home or self-care (01) ==
LOC: MTLAB 13:01
PROVIDERS: Internal Medicine Rheumatology; Referring Provider Family Medicine; Visit Provider Family Medicine
DX: E03.9 Hypothyroidism, unspecified (principal); Z79.01 Long term (current) use of anticoagulants
CPT/HCPCS: 36415; 80053; 82955; 84443; 85025; 85610

== ENCOUNTER 2021-02-11 14:05 | Outpatient (RCR) | payer MEDICARE, SELFPAY ==
[2021-01-14 15:22] LABS: International Normalized Ratio 2.9; Prothrombin Time (Protime)PT. 29.2 SECONDS (11.7-14.9)
[2021-02-11 15:34] LABS: International Normalized Ratio 2.5; Prothrombin Time (Protime)PT. 26.2 SECONDS (11.7-14.9)
== END 2021-02-11 18:00 | disposition home or self-care (01) ==
LOC: MTLAB 14:05
PROVIDERS: Referring Provider Family Medicine; Visit Provider Family Medicine
DX: Z79.01 Long term (current) use of anticoagulants (principal)
CPT/HCPCS: 36415; 85610

== ENCOUNTER → 2021-02-19 14:19 | Outpatient (CLI) | payer MEDICARE, SELFPAY ==
[2021-02-19 17:58] LABS: Absolute Lymphocyte Count 1.72 X10^3/uL (0.83-4.51); Absolute Neutrophil Count 4.3 X10^3/uL (2.0-7.7); Basophil# 0.07 X10^3/uL; Eosinophil# 0.31 X10^3/uL; Eosinophils% 4.4 % (0-5); Hematocrit 36.4 % (37-47); Hemoglobin 11.4 g/dL (12.0-15.0); Lymphocyte # 1.72 X10^3/ul (0.83-4.51); Lymphocyte % 24.4 % (19-41); Mean Corp Hgb Conc 31.3 g/dL (32-36); Mean Corpuscular Hgb 29.9 pg (27.0-32.0); Mean Corpuscular Volume 95.5 fL (81-99); Mean Platelet Vol. 10.4 fl (6.2-12.0); Monocyte# 0.66 X10^3/uL; Monocyte% 9.3 % (0-10); NRBC Flagged by Analyzer 0 % (0-5); Neutrophil # 4.28 X10^3/uL (2.7-7.7); Neutrophil % 60.6 % (47-70); Platelet Count 343 K/mm3 (150-450); RBC Distribution Width CV 14.5 % (11.6-14.6); RBC Distribution Width SD 50.9 fl (35.1-43.9); Red Blood Count 3.81 M/mm3 (4.2-5.4); White Blood Count 7.1 K/mm3 (4.4-11.0)
[2021-02-19 18:13] LABS: ALB/GLOB Ratio 0.8 RATIO (0.9-2.4); AST(SGOT) 15 U/L (15-37); Alanine Aminotransfer ALT/SGPT 13 U/L (13-56); Albumin, Serum 2.9 g/dL (3.2-5.0); Alkaline Phosphatase 70 U/L (45-117); Anion Gap 6 (5-15); BUN 14 mg/dL (7-18); BUN/Creat Ratio 13.5 RATIO (10-20); Calcium,Total 8.8 mg/dL (8.5-10.1); Chloride 107 mmol/L (98-107); Creatinine, Serum 1.04 mg/dL (0.55-1.02); EST Glomerular Filtration Rate 54 mL/min (>60); Est Glom Filt Rate - Afr Amer 65 mL/min (>60); Globulin 3.7 g/dL (2.2-4.2); Glucose 114 mg/dL (74-106); Potassium 4.1 mmol/L (3.5-5.1); Protein, Total 6.6 g/dL (6.4-8.2); Sodium Level 141 mmol/L (136-145)
== END ==
PROVIDERS: Referring Provider Internal Medicine Rheumatology; Visit Provider Internal Medicine Rheumatology
DX: M06.4 Inflammatory polyarthropathy (principal); R76.8 Other specified abnormal immunological findings in serum; M17.0 Bilateral primary osteoarthritis of knee; I48.91 Unspecified atrial fibrillation; E03.9 Hypothyroidism, unspecified; I10 Essential (primary) hypertension; E78.5 Hyperlipidemia, unspecified; I87.2 Venous insufficiency (chronic) (peripheral); N39.46 Mixed incontinence
CPT/HCPCS: 36415; 80053; 85025

== ENCOUNTER 2021-03-12 09:08 | Outpatient (RCR) | payer MEDICARE, SELFPAY ==
[2021-02-12 02:05] VITALS: BMI 32.9
[2021-03-12 10:03] LABS: Absolute Lymphocyte Count 1.55 X10^3/uL (0.83-4.51); Absolute Neutrophil Count 4.1 X10^3/uL (2.0-7.7); Basophil# 0.05 X10^3/uL; Basophil% 0.8 % (0-1); Eosinophil# 0.27 X10^3/uL; Eosinophils% 4.1 % (0-5); Hematocrit 36.7 % (37-47); Hemoglobin 11.7 g/dL (12.0-15.0); Lymphocyte # 1.55 X10^3/ul (0.83-4.51); Lymphocyte % 23.3 % (19-41); Mean Corp Hgb Conc 31.9 g/dL (32-36); Mean Corpuscular Hgb 30.2 pg (27.0-32.0); Mean Corpuscular Volume 94.6 fL (81-99); Monocyte# 0.67 X10^3/uL; Monocyte% 10.1 % (0-10); NRBC Flagged by Analyzer 0 % (0-5); Neutrophil # 4.09 X10^3/uL (2.7-7.7); Neutrophil % 61.2 % (47-70); Platelet Count 360 K/mm3 (150-450); RBC Distribution Width CV 14.5 % (11.6-14.6); Red Blood Count 3.88 M/mm3 (4.2-5.4); White Blood Count 6.7 K/mm3 (4.4-11.0)
[2021-03-12 10:10] LABS: International Normalized Ratio 2.9; Prothrombin Time (Protime)PT. 29.2 SECONDS (11.7-14.9)
[2021-03-12 10:31] LABS: ALB/GLOB Ratio 0.9 RATIO (0.9-2.4); AST(SGOT) 18 U/L (15-37); Alanine Aminotransfer ALT/SGPT 11 U/L (13-56); Albumin, Serum 3.2 g/dL (3.2-5.0); Alkaline Phosphatase 65 U/L (45-117); Anion Gap 5 (5-15); BUN 13 mg/dL (7-18); BUN/Creat Ratio 13.4 RATIO (10-20); Calcium,Total 8.7 mg/dL (8.5-10.1); Chloride 105 mmol/L (98-107); Cholesterol 224 mg/dL (200); Creatinine, Serum 0.97 mg/dL (0.55-1.02); EST Glomerular Filtration Rate 58 mL/min (>60); Est Glom Filt Rate - Afr Amer 70 mL/min (>60); Globulin 3.6 g/dL (2.2-4.2); Glucose 106 mg/dL (74-106); High Density Lipoprotein 42 mg/dL; Potassium 4.1 mmol/L (3.5-5.1); Protein, Total 6.8 g/dL (6.4-8.2); Sodium Level 139 mmol/L (136-145); Thyroid Stim Hormone (TSH) 7.93 uIU/mL (0.358-3.74); Triglycerides 147 mg/dL; Very Low Density Lipoprotein 29 mg/dL (5-40)
== END 2021-03-14 18:00 | disposition home or self-care (01) ==
LOC: MTLAB 09:08
PROVIDERS: Referring Provider Family Medicine; Visit Provider Family Medicine
DX: E78.00 Pure hypercholesterolemia, unspecified (principal); Z79.01 Long term (current) use of anticoagulants
CPT/HCPCS: 36415; 80053; 80061; 84443; 85025; 85610

== ENCOUNTER 2021-04-12 14:08 | Outpatient (RCR) | payer MEDICARE, SELFPAY ==
[2021-03-14 20:42] VITALS: BMI 32.9
[2021-04-12 18:09] LABS: International Normalized Ratio 3.3; Prothrombin Time (Protime)PT. 33.1 SECONDS (11.7-14.9)
== END 2021-04-13 18:00 | disposition home or self-care (01) ==
LOC: MTLAB 14:08
PROVIDERS: Referring Provider Family Medicine; Visit Provider Family Medicine
DX: Z79.01 Long term (current) use of anticoagulants (principal)
CPT/HCPCS: 36415; 85610

== ENCOUNTER 2021-05-17 14:30 | Outpatient (RCR) | payer MEDICARE, SELFPAY ==
[2021-04-14 04:13] VITALS: BMI 32.9
[2021-05-17 16:05] LABS: Absolute Lymphocyte Count 1.47 X10^3/uL (0.83-4.51); Absolute Neutrophil Count 5.3 X10^3/uL (2.0-7.7); Basophil# 0.08 X10^3/uL; Eosinophil# 0.27 X10^3/uL; Eosinophils% 3.4 % (0-5); Hemoglobin 11.7 g/dL (12.0-15.0); Lymphocyte # 1.47 X10^3/ul (0.83-4.51); Lymphocyte % 18.7 % (19-41); Mean Corp Hgb Conc 32.5 g/dL (32-36); Mean Corpuscular Hgb 31.3 pg (27.0-32.0); Mean Corpuscular Volume 96.3 fL (81-99); Mean Platelet Vol. 10.3 fl (6.2-12.0); Monocyte# 0.74 X10^3/uL; Monocyte% 9.4 % (0-10); NRBC Flagged by Analyzer 0 % (0-5); Neutrophil # 5.28 X10^3/uL (2.7-7.7); Neutrophil % 67.4 % (47-70); Platelet Count 362 K/mm3 (150-450); RBC Distribution Width CV 13.4 % (11.6-14.6); RBC Distribution Width SD 47.8 fl (35.1-43.9); Red Blood Count 3.74 M/mm3 (4.2-5.4); White Blood Count 7.9 K/mm3 (4.4-11.0)
[2021-05-17 16:09] LABS: ALB/GLOB Ratio 0.9 RATIO (0.9-2.4); AST(SGOT) 20 U/L (15-37); Alanine Aminotransfer ALT/SGPT 15 U/L (13-56); Albumin, Serum 3.2 g/dL (3.2-5.0); Alkaline Phosphatase 72 U/L (45-117); Anion Gap 6 (5-15); BUN 15 mg/dL (7-18); BUN/Creat Ratio 16.4 RATIO (10-20); Calcium,Total 8.6 mg/dL (8.5-10.1); Chloride 106 mmol/L (98-107); Creatinine, Serum 0.92 mg/dL (0.55-1.02); EST Glomerular Filtration Rate 62 mL/min (>60); Est Glom Filt Rate - Afr Amer 75 mL/min (>60); Globulin 3.5 g/dL (2.2-4.2); Glucose 129 mg/dL (74-106); Potassium 4.1 mmol/L (3.5-5.1); Protein, Total 6.7 g/dL (6.4-8.2); Sodium Level 141 mmol/L (136-145)
[2021-05-17 17:09] LABS: International Normalized Ratio 2.8; Prothrombin Time (Protime)PT. 28.8 SECONDS (11.7-14.9)
== END 2021-06-14 18:00 | disposition home or self-care (01) ==
LOC: MTLAB 14:30
PROVIDERS: Referring Provider Family Medicine; Visit Provider Family Medicine
DX: Z79.01 Long term (current) use of anticoagulants (principal); M06.4 Inflammatory polyarthropathy; I48.91 Unspecified atrial fibrillation; R76.8 Other specified abnormal immunological findings in serum; M17.0 Bilateral primary osteoarthritis of knee; E03.9 Hypothyroidism, unspecified; I10 Essential (primary) hypertension; E78.5 Hyperlipidemia, unspecified; I87.2 Venous insufficiency (chronic) (peripheral); N39.46 Mixed incontinence
CPT/HCPCS: 36415; 80053; 85025; 85610

== ENCOUNTER 2021-05-21 11:23 | Outpatient (CLI) | payer MEDICARE, SELFPAY | END 2021-05-21 23:59 | disposition short-term general hospital (02) | PROVIDERS: Referring Provider Physician Assistant Surgical; Visit Provider Physician Assistant Surgical | DX: Z11.52 Encounter for screening for COVID-19 (principal) | CPT/HCPCS: 87635; U0003; U0005 ==

== ENCOUNTER 2021-06-21 16:23 | Outpatient (RCR) | payer MEDICARE, SELFPAY ==
[2021-06-15 01:51] VITALS: BMI 32.9
[2021-06-21 18:10] LABS: International Normalized Ratio 2.2; Prothrombin Time (Protime)PT. 23.6 SECONDS (11.7-14.9)
== END 2021-06-21 23:59 | disposition home or self-care (01) ==
LOC: MTLAB 16:23
PROVIDERS: Referring Provider Family Medicine; Visit Provider Family Medicine
DX: Z79.01 Long term (current) use of anticoagulants (principal)
CPT/HCPCS: 36415; 85610

== ENCOUNTER 2021-07-05 11:19 | Observation (INO) | payer MEDICARE, SELFPAY ==
[2021-07-05] VITALS (7 sets, daily range): BP systolic 121–146; BP diastolic 60–92; PULSE 68–92; RESP 14–20; TEMP 36.9–37.8; O2SAT 94–98; BMI 36.0; BMI 32.7
--- NOTE | 2021-07-05 11:38 | CT_ITS ---
STUDY: CT BRAIN WITHOUT CONTRAST REASON FOR EXAM: Female, 85 years old. fall RADIATION DOSAGE (If Supplied By Facility): CTDIvol = ( 44.99 ) mGy, DLP = ( 812.98 ) mGycm TECHNIQUE: Transaxial CT imaging of the brain was performed without administration of intravenous contrast material. Individualized dose optimization techniques were used for this CT. COMPARISON: No relevant priors. FINDINGS: Normal soft tissue structures. Normal calvarium. There is mild cerebral atrophy with widening of the extra-axial spaces and ventricular dilatation. There are areas of decreased attenuation within the white matter tracts of the supratentorial brain, consistent with microvascular disease changes. 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 Normal brainstem. Normal cerebellum. There is no intracranial hemorrhage. There are no findings of an acute ischemic infarction. Normal visualized paranasal sinuses. CT/Brain/Head without Contrast IMPRESSION: No acute intracranial hemorrhage or mass effect. Electronically Signed: Ghanshyam Clemens MD (Brooks) at 12:08 EST Reading Location ID and State: [place] , Service support ,
--- NOTE | 2021-07-05 11:39 | EDS_ITS ---
HPI <CARLOS Yarbrough - Last Filed: 07/05/21 14:26> HPI - Fall History of Present Illness Chief Complaint: Fall Narrative Narrative: 85-year-old female presents with left knee pain after fall. She normally uses a cane or walker. Her adult children are with her during the day but she stays alone at night. Yesterday her daughter was with her in the kitchen and she was not using her walker and lost her balance and fell onto her left side. She does not think she hit her head and there was no LOC. She was able to scoot her to the steps and with other family members lifted her into a chair. Yesterday she was able to ambulate, but today after waking up has not been able to put weight on the left leg due to knee pain and swelling. She has dementia and is at her baseline cognition today. No recent illness. She is on Coumadin for history of DVT. [facility] <CARLOS Yarbrough - Last Filed: 07/05/21 14:26> [facility] Medical History (Updated 07/06/21 @ 16:[address] Domingo Calloway MD) Dementia DVT (deep venous thrombosis) History of blood clots Hyperlipidemia Hypertension Hypothyroidism Paroxysmal atrial fibrillation Rheumatoid arthritis Home Medications metoprolol tartrate 25 mg PO BID 05/15/15 [History Last Taken 07/05/21] raloxifene 60 mg PO DAILY 06/07/17 [History Last Taken 07/05/21] losartan 100 mg tablet 100 mg PO DAILY 06/19/17 [History Last Taken 07/05/21] sotalol 80 mg tablet 40 mg PO BID tab 07/06/19 [History Last Taken 07/05/21] warfarin 3 mg tablet 3 mg PO MOWEFRSA 07/06/19 [History Last Taken 07/05/21] Myrbetriq 50 mg PO DAILY 09/21/20 [History Last Taken 07/04/21] fexofenadine 180 mg PO DAILY 09/21/20 [History Last Taken 07/04/21] levothyroxine 200 mcg PO DAILY 09/21/20 [History Last Taken 07/05/21] warfarin 4 mg PO SUTUTH 09/21/20 [History Last Taken 07/04/21] acetaminophen 1,000 mg PO Q6H PRN PRN #0 tab 09/30/20 [Rx Last Taken 07/05/21] sulfasalazine [Azulfidine] 500 mg PO BID 07/05/21 [History Last Taken 07/05/21] Allergy/AdvReac Type Severity Reaction Status Date / Time ertapenem [From Invanz] Allergy Rash Verified 07/05/21 17:12 Penicillins Allergy Unknown Verified 09/21/20 12:58 Family History (Updated 07/05/21 @ 16:49 by David GONZALEZ) Father CVA (cerebral vascular accident) Mother Cancer Breast. Surgical History (Updated 07/05/21 @ 17:16 by Debo Rangel) H/O discectomy History of appendectomy History of embolic filter insertion S/P insertion of IVC (inferior vena caval) filter Status post right knee replacement Social History household members: none Smoking Status: Never smoker alcohol intake: never substance use type: does not use ROS <CARLOS Yarbrough - Last Filed: 07/05/21 14:26> ROS ED ROS Narrative Constitutional: Negative for fever, chills, malaise. Eyes: Negative for visual change. ENT: Negative for sore throat, ear pain, rhinorrhea. CVS: Negative for palpitations, chest pain, syncope. Respiratory: Negative for shortness of breath, cough, orthopnea. GI: Negative for abdominal pain, nausea, vomiting, diarrhea, constipation, melena, hematochezia. : Negative for dysuria, hematuria or frequency. Neuro: Negative for headache, motor/sensory dysfunction. Skin: Negative for rash, abscess, or wound. Musc: Positive for knee pain, swelling, trauma. Heme: Positive for easy bruising, bleeding, on anticoagulation. EXAM <CARLOS Yarbrough - Last Filed: 07/05/21 14:26> Physical Exam Narrative Exam Narrative: CONST: Patient sitting in no acute distress. EYES: Normal inspection. Head: Head normocephalic atraumatic. No raccoon eyes or gaston sign, no nasal septal hematoma, no hemotympanum, no CSF otorrhea or rhinorrhea. NECK: Normal inspection. No midline spinal tenderness, no step off or crepitus. RESP: No respiratory distress, CTAB. CVS: Regular rate and rhythm, no murmur, no gallop. Chest nontender. ABD: Soft and nontender, no guarding or rebound, nondistended. Back: Pelvis intact. Normal inspection, no midline spinal tenderness, no step off or crepitus. SKIN: Color normal, no rash, warm, dry, intact. EXTREMITIES: Moderate left knee effusion and diffuse tenderness over the knee, normal sensation to light touch, 2+ DP pulses. NEURO: Oriented to self and place?baseline with dementia. PSYCH: Normal affect. Const Vital Signs: 07/05/21 11:21 07/05/21 11:26 07/05/21 13:24 Temperature 98.5 F Temperature Source Temporal Pulse Rate 68 76 Respiratory Rate 18 14 Respiratory Effort Normal Respiratory Depth Normal Respiratory Pattern Normal Blood Pressure 121/60 H 124/72 H Blood Pressure Mean 80 89 Pulse Ox 95 96 Oxygen Delivery Method Room Air Room Air Room Air 07/05/21 15:00 Temperature Temperature Source Pulse Rate 88 Respiratory Rate 14 Respiratory Effort Respiratory Depth Respiratory Pattern Blood Pressure 123/64 H Blood Pressure Mean 83 Pulse Ox 96 Oxygen Delivery Method Room Air <Dr. Viri Saravia MD - Last Filed: 07/07/21 07:45> Physical Exam Const Vital Signs: 07/05/21 11:21 07/05/21 11:26 07/05/21 13:24 Temperature 98.5 F Temperature Source Temporal Pulse Rate 68 76 Respiratory Rate 18 14 Respiratory Effort Normal Respiratory Depth Normal Respiratory Pattern Normal Blood Pressure 121/60 H 124/72 H Blood Pressure Mean 80 89 Pulse Ox 95 96 Oxygen Delivery Method Room Air Room Air Room Air 07/05/21 15:00 Temperature Temperature Source Pulse Rate 88 Respiratory Rate 14 Respiratory Effort Respiratory Depth Respiratory Pattern Blood Pressure 123/64 H Blood Pressure Mean 83 Pulse Ox 96 Oxygen Delivery Method Room Air MDM <CARLOS Yarbrough - Last Filed: 07/05/21 14:26> [facility] Narrative Medical decision making narrative: Patient had a mechanical fall with left knee injury and is unable to ambulate due to swelling and pain. She appears well and nontoxic. Vital signs are within normal limits. She is alert to self and place which is consistent with her baseline dementia. She has no evidence of head or neck trauma. No midline spinal tenderness or step-offs. Heart is regular, lungs clear, no chest wall tenderness. Abdomen soft and nontender. Pelvis is stable. She is moving all extremities. She does have a left knee effusion and diffuse tenderness. Extremities are neurovascularly intact. The rest of her medical exam is benign. The daughter was not sure if she hit her head so due to her age and anticoagulation use a CT brain was obtained and is negative. X-ray of the left knee shows effusion with no acute fracture dislocation. She is not ambulatory and lives alone and thus will need admitted. I spoke to social work who is attempting to place directly to rehab/ECF. Diagnoses 1. Traumatic left knee effusion 2. Fall Lab Data Labs: Laboratory Results - last 24 hr 07/05/21 07/05/21 07/05/21 15:55 15:55 15:55 WBC 11.1 H RBC 3.61 L Hgb 11.2 L Hct 33.9 L MCV 93.9 MCH 31.0 MCHC 33.0 RDW Std Deviation 46.7 H RDW Coeff of Jackie 13.5 Plt Count 326 MPV 10.0 Immature Gran % (Auto) 0.500 Neut % (Auto) 67.5 Lymph % (Auto) 17.3 L Stanton % (Auto) 13.2 H Eos % (Auto) 1.0 Baso % (Auto) 0.5 Absolute Neuts (auto) 7.5 Absolute Lymphs (auto) 1.92 Nucleated RBC % 0 PT 28.1 H INR 2.7 Sodium 140 Potassium 4.2 Chloride 108 H Carbon Dioxide 29.0 Anion Gap 3 L BUN 18 Creatinine 1.02 Estim Creat Clear Calc 30.43 Est GFR (MDRD) Af Amer 66 Est GFR (MDRD) Non-Af 55 L BUN/Creatinine Ratio 17.6 Glucose 117 H Calcium 8.6 Radiography Diagnostic Testing: Clinical Impression(s) from Imaging Studies Brain CT 07/05/21 11:38 IMPRESSION: No acute intracranial hemorrhage or mass effect. Electronically Signed: Ghanshyam Clemens MD ([place]) at 12:08 EST Reading Location ID and State: / [place] , Service support , Knee X-Ray 07/05/21 11:54 IMPRESSION: Moderate joint effusion. No demonstrated fracture. Tricompartmental osteoarthrosis. Electronically Signed: Ghanshyam Clemens MD ([place]) at 12:09 EST Reading Location ID and State: / [place] , Service support , <Dr. Viri Saravia MD - Last Filed: 07/07/21 07:45> [facility] Lab Data Labs: Laboratory Results - last 24 hr 07/05/21 07/05/21 07/05/21 15:55 15:55 15:55 WBC 11.1 H RBC 3.61 L Hgb 11.2 L Hct 33.9 L MCV 93.9 MCH 31.0 MCHC 33.0 RDW Std Deviation 46.7 H RDW Coeff of Jackie 13.5 Plt Count 326 MPV 10.0 Immature Gran % (Auto) 0.500 Neut % (Auto) 67.5 Lymph % (Auto) 17.3 L Stanton % (Auto) 13.2 H Eos % (Auto) 1.0 Baso % (Auto) 0.5 Absolute Neuts (auto) 7.5 Absolute Lymphs (auto) 1.92 Nucleated RBC % 0 PT 28.1 H INR 2.7 Sodium 140 Potassium 4.2 Chloride 108 H Carbon Dioxide 29.0 Anion Gap 3 L BUN 18 Creatinine 1.02 Estim Creat Clear Calc 30.43 Est GFR (MDRD) Af Amer 66 Est GFR (MDRD) Non-Af 55 L BUN/Creatinine Ratio 17.6 Glucose 117 H Calcium 8.6 Radiography Diagnostic Testing: Clinical Impression(s) from Imaging Studies Brain CT 07/05/21 11:38 IMPRESSION: No acute intracranial hemorrhage or mass effect. Electronically Signed: Ghanshyam Clemens MD ([place]) at 12:08 EST Reading Location ID and State: [address] [place] [address] , Service support , Knee X-Ray 07/05/21 11:54 IMPRESSION: Moderate joint effusion. No demonstrated fracture. Tricompartmental osteoarthrosis. Electronically Signed: Ghanshyam Clemens MD ([place]) at 12:09 EST Reading Location ID and State: [address] [place] [address] , Service support , Treatment and Re-Evaluation Comments:: Patient seen and evaluated with physician lens generator. Patient independently evaluated and examined. Note reviewed by myself and endorsed. Patient had a fall at home yesterday. Initially able to ambulate but today left knee more swollen and unable to ambulate. Patient is on Coumadin secondary to prior DVT. She denies striking her head. Patient has dementia at baseline and family member reports she is at her baseline mental status. Patient lying in bed no acute distress. Head neck examination unremarkable with no external sign of trauma. Heart is regular rate and rhythm. Lung sounds are clear. Abdomen is soft and nontender. Lower extremity examination reveals edema to the anterior left knee. Palpable distal pulses noted increased pain with range of motion. X-rays unremarkable. Patient unable to ambulate at this time. Social work attempted multiple facilities to see if we could do direct admission for a rehab stay. Unfortunately because of her insurance they are not able to do this. Patient discussed with hospitalist for admission who will then help arrange disposition for rehab. Discharge Plan Disposition Disposition: Acute Care Hospital [facility] Discharge Date/Time: 07/05/21 16:44
--- NOTE | 2021-07-05 11:54 | RAD_ITS ---
STUDY: X-RAY - LEFT KNEE REASON FOR EXAM: Female, 85 years old. Injury/Pain TECHNIQUE: 2 view(s) of the knee. COMPARISON: None. FINDINGS: Normal visualized distal femur. Normal visualized proximal tibia and fibula. Normal proximal tibiofibular articulation. There is moderate degenerative arthrosis of the medial femorotibial compartment with moderate joint space narrowing. There is mild degenerative arthrosis of the lateral femorotibial compartment. There is moderate degenerative arthrosis of the patellofemoral articulation. There is a moderate volume joint effusion. The soft tissue structures are unremarkable. RAD/Knee 1 or 2 Views IMPRESSION: Moderate joint effusion. No demonstrated fracture. Tricompartmental osteoarthrosis. Electronically Signed: Ghanshyam Clemens MD ([place]) at 12:09 EST Reading Location ID and State: [address] [place] [address] , Service support ,
--- NOTE | 2021-07-05 13:00 | CM.ED ---
Social Work Consult: Senior Care Referral Source: Inna Yarbrough Met with patient and patient daughter, Keiry in room. Introduced self and manager social responsibility role. Patient agreeable to speak with this manager social responsibility and provided permission to speak openly with Keiry present. Patient currently lives at home alone with family providing care as needed. Per Keiry patient was to have a home health aide start today to being providing more help in the home. Keiry reports concern of patient being able to return to home as patient is currently not able to ambulate due to pain in knee after fall today. Keiry and patient open to half-way placement and would like to pursue this option. This manager social responsibility provided a list of jail facilities that are local to patient geographical region. Patient with [email or web address]. Patient would like TCU as first choice and [facility] as second. Telephone call to [facility]. No open beds until . [facility] No answer. Voicemail left. Will continue to follow. Samantha DOLAN, MARIELA
--- NOTE | 2021-07-05 14:46 | CM.ED ---
Social Work Telephone call to [facility]. No answer. Voicemail left requesting return phone call. Will continue to follow. Samantha DOLAN, MARIELA
--- NOTE | 2021-07-05 15:17 | CM.ED ---
Social Work Met with patient and patient family in room to update on placement status. Patient daughter now request for referral to be sent to [facility] ([facility]). Telephone call to [facility], [place]. No answer. Voicemail left. Will continue to follow. Samantha DOLAN, MARIELA
--- NOTE | 2021-07-05 16:10 | NURSING ---
MED SURG OBS WHITE FALL, KNEE EFFUSION, FUNCTIONAL DECLINE
[2021-07-05 16:15] LABS: Absolute Lymphocyte Count 1.92 X10^3/uL (0.83-4.51); Absolute Neutrophil Count 7.5 X10^3/uL (2.0-7.7); Basophil# 0.06 X10^3/uL; Basophil% 0.5 % (0-1); Eosinophil# 0.11 X10^3/uL; Hematocrit 33.9 % (37-47); Hemoglobin 11.2 g/dL (12.0-15.0); Lymphocyte # 1.92 X10^3/ul (0.83-4.51); Lymphocyte % 17.3 % (19-41); Mean Corpuscular Volume 93.9 fL (81-99); Monocyte# 1.46 X10^3/uL; Monocyte% 13.2 % (0-10); NRBC Flagged by Analyzer 0 % (0-5); Neutrophil # 7.49 X10^3/uL (2.7-7.7); Neutrophil % 67.5 % (47-70); Platelet Count 326 K/mm3 (150-450); RBC Distribution Width CV 13.5 % (11.6-14.6); RBC Distribution Width SD 46.7 fl (35.1-43.9); Red Blood Count 3.61 M/mm3 (4.2-5.4); White Blood Count 11.1 K/mm3 (4.4-11.0)
--- NOTE | 2021-07-05 16:17 | CM.ED ---
Social Work Collaborating with Sangeetha Ro. Since unable to secure placement from ED will attempt admission to acute unit to facilitate longterm placement as patient is not safe to return to home. Samantha DOLAN, ANGELA-S
[2021-07-05 16:27] LABS: Anion Gap 3 (5-15); BUN 18 mg/dL (7-18); BUN/Creat Ratio 17.6 RATIO (10-20); Calcium,Total 8.6 mg/dL (8.5-10.1); Chloride 108 mmol/L (98-107); Creatinine, Serum 1.02 mg/dL (0.55-1.02); EST Glomerular Filtration Rate 55 mL/min (>60); Est Glom Filt Rate - Afr Amer 66 mL/min (>60); Estimated Creatinine Clearance 30.43 ml/min; Glucose 117 mg/dL (74-106); Potassium 4.2 mmol/L (3.5-5.1); Sodium Level 140 mmol/L (136-145)
[2021-07-05 16:35] LABS: International Normalized Ratio 2.7; Prothrombin Time (Protime)PT. 28.1 SECONDS (11.7-14.9)
--- NOTE | 2021-07-05 16:43 | HP.PCM.HOS_ITS ---
Documented by User: David GONZALEZ 07/05/21 17:08 HPI - General General Date of Admission: 07/05/21 Date of Service: 07/05/21 Chief Complaint: Fall w/ left knee effusion. HPI Narrative SG CARLISLE is an 85-year-old female who presents to [facility] on 07/05/2021 for evaluation and management of fall with left knee effusion. History was obtained from patient's daughter who said that patient suffered a fall yesterday when she got up from her chair to go to the kitchen. Patient's daughter reports that she did not witness the fall, however reports that she saw her mother get up from the chair to go to the kitchen and resumed her prior activity, next minute she reports that she heard a loud thump and found her mother on the ground. Patientd daughter denies any loss of consciousness or hitting her head. After the fall, patient was able to get up and ambulate around the room so family did not seek medical attention at that time. When patient awoke from bed this morning, she reported not being able to get out of bed and felt significant pain about her left knee. This prompted family to get ED evaluation. Patient does have a past medical history of osteoarthritis about the knees bilaterally, however denies any stroke or seizure history. Patient is anticoagulated on Coumadin for DVT in 2017. Vital signs in the ED are stable. CBC shows mildly elevated WBCs of 11.1, hemoglobin at 11.2 and platelets at 326. PT is 28.1 and INR is 2.7. BMP shows sodium at 140, potassium of 4.2, creatinine 1.02 and glucose of 117. Brain CT does not demonstrate any acute intracranial hemorrhage or mass-effect. X-ray of the left knee significant for moderate effusion and osteoarthritis with no demonstrated fracture. Patient and family requesting placement for patient given inability to ambulate. REPLACED BY [facility] Medical History (Updated 07/05/21 @ 17:16 by Debo Rangel) Dementia DVT (deep venous thrombosis) History of blood clots Hyperlipidemia Hypertension Hypothyroidism Paroxysmal atrial fibrillation Rheumatoid arthritis Home Medications metoprolol tartrate 25 mg PO BID 05/15/15 [History Last Taken 07/05/21] raloxifene 60 mg PO DAILY 06/07/17 [History Last Taken 07/05/21] losartan 100 mg tablet 100 mg PO DAILY 06/19/17 [History Last Taken 07/05/21] sotalol 80 mg tablet 40 mg PO BID tab 07/06/19 [History Last Taken 07/05/21] warfarin 3 mg tablet 3 mg PO MOWEFRSA 07/06/19 [History Last Taken 07/05/21] Myrbetriq 50 mg PO DAILY 09/21/20 [History Last Taken 07/04/21] fexofenadine 180 mg PO DAILY 09/21/20 [History Last Taken 07/04/21] levothyroxine 200 mcg PO DAILY 09/21/20 [History Last Taken 07/05/21] warfarin 4 mg PO SUTUTH 09/21/20 [History Last Taken 07/04/21] acetaminophen 1,000 mg PO Q6H PRN PRN #0 tab 09/30/20 [Rx Last Taken 07/05/21] sulfasalazine [Azulfidine] 500 mg PO BID 07/05/21 [History Last Taken 07/05/21] Allergy/AdvReac Type Severity Reaction Status Date / Time ertapenem [From Invanz] Allergy Rash Verified 07/05/21 17:12 Penicillins Allergy Unknown Verified 09/21/20 12:58 Family History (Updated 07/05/21 @ 16:49 by David GONZALEZ) Father CVA (cerebral vascular accident) Mother Cancer Breast. Surgical History (Updated 07/05/21 @ 17:16 by Debo Rangel) H/O discectomy History of appendectomy History of embolic filter insertion S/P insertion of IVC (inferior vena caval) filter Status post right knee replacement Social History household members: none Smoking Status: Never smoker alcohol intake: never substance use type: does not use ROS Review of Systems ROS Unobtainable: Denies due to encephalopathy, due to endotracheal tube, due to mental condition, due to mental status or other Constitutional Constitutional: Denies anorexia, change in weight, chills, fatigue, fever(s), malaise, night sweats, weakness or other Eyes Eyes: Denies blurry vision, change in eye color, change in vision, discharge from eye(s), double vision, erythema, eye pain, loss of vision or other ENT HEENT: Denies abnormal hearing, dysphagia, ear pain, epistaxis, headache(s), hearing loss, nasal congestion, nasal discharge, post nasal drip, sinus pressure, sore throat or other Cardiovascular Cardiovascular: Denies chest pain, claudication, dyspnea on exertion, edema, lightheadedness, orthopnea, palpitations, paroxysmal nocturnal dyspnea, rapid heart rate, syncope or other Respiratory/Chest Respiratory/Chest: Denies cough, dyspnea, excessive phlegm production, hemoptysis, productive cough, shortness of breath at rest, shortness of breath with exertion, wheezing or other Gastrointestinal Gastrointestinal: Denies abdominal pain, coffee ground emesis, constipation, diarrhea, dyspepsia, hematemesis, hematochezia, loose stools, melena, nausea, vomiting or other Genitourinary Genitourinary: Denies burning urination, difficulty urinating, dysuria, hematuria, nocturia, urinary frequency, urinary hesitancy, urinary incontinence, urinary urgency or other Musculoskeletal Musculoskeletal: Reports joint pain, joint stiffness and joint swelling; Denies arthralgias, back pain, myalgias, neck pain or other Neurologic Neurologic: Denies abnormal gait, abnormal speech, confusion, disequilibrium, dizziness, focal weakness, headache(s), numbness, paresthesias, seizure-like activity, seizures, syncope, tingling, tremor(s) or other Psychiatric Psychiatric: Denies anxiety, depression, homicidal ideation, suicidal ideation or other Endocrine Endocrinology: Denies change in body appearance, cold intolerance, excessive sweating, heat intolerance, polydipsia, polyuria or other Vital Signs Vital Signs Vital Signs: 07/05/21 11:21 07/05/21 11:26 07/05/21 13:24 Temperature 98.5 F Temperature Source Temporal Pulse Rate 68 76 Respiratory Rate 18 14 Respiratory Effort Normal Respiratory Depth Normal Respiratory Pattern Normal Blood Pressure 121/60 H 124/72 H Blood Pressure Mean 80 89 Pulse Ox 95 96 Oxygen Delivery Method Room Air Room Air Room Air 07/05/21 15:00 07/05/21 16:17 Temperature 98.4 F Temperature Source Temporal Pulse Rate 88 78 Respiratory Rate 14 14 Respiratory Effort Respiratory Depth Respiratory Pattern Blood Pressure 123/64 H 126/78 H Blood Pressure Mean 83 94 Pulse Ox 96 98 Oxygen Delivery Method Room Air Room Air Weight Weight: 190 lb 11.198 oz Body Mass Index (BMI) 36.0 Physical Exam Const alert and oriented x3 General Appearance: cooperative HEENT normocephalic, head/scalp atraumatic and hearing grossly normal bilaterally Eyes PERRL and conjunctivae normal Neck no lymphadenopathy, supple and no JVD Resp normal respiratory effort, no retractions and no use of accessory muscles Cardio regular rate, regular rhythm and no JVD GI normal to inspection, nondistended, normoactive bowel sounds Extremity Extremity Narrative: Moderate left knee effusion and diffuse tenderness over the knee. Skin no rashes or lesions noted Neuro CN's II-XII intact bilaterally Psych affect normal Results Lab / Micro Data Result Diagrams: 07/05/21 15:55 07/05/21 15:55 Labs: Laboratory Results - last 24 hr 07/05/21 15:55: WBC 11.1 H, RBC 3.61 L, Hgb 11.2 L, Hct 33.9 L, MCV 93.9, MCH 31.0, MCHC 33.0, RDW Std Deviation 46.7 H, RDW Coeff of Jackie 13.5, Plt Count 326, MPV 10.0, Immature Gran % (Auto) 0.500, Neut % (Auto) 67.5, Lymph % (Auto) 17.3 L, [place] % (Auto) 13.2 H, Eos % (Auto) 1.0, Baso % (Auto) 0.5, Absolute Neuts (auto) 7.5, Absolute Lymphs (auto) 1.92, Nucleated RBC % 0 07/05/21 15:55: PT 28.1 H, INR 2.7 07/05/21 15:55: Sodium 140, Potassium 4.2, Chloride 108 H, Carbon Dioxide 29.0, Anion Gap 3 L, BUN 18, Creatinine 1.02, Estim Creat Clear Calc 30.43, Est GFR (MDRD) Af Amer 66, Est GFR (MDRD) Non-Af 55 L, BUN/Creatinine Ratio 17.6, Glucose 117 H, Calcium 8.6 Micro: Microbiology 07/05/21 13:25 Nasal Secretion SARS-CoV-2 Antigen (Rapid) - Final Radiology Impression Brain CT 07/05/21 11:38 IMPRESSION: No acute intracranial hemorrhage or mass effect. Electronically Signed: Ghanshyam Clemens MD ([place]oks) at 12:08 EST Reading Location ID and State: [address] [place] [address] , Service support , Knee X-Ray 07/05/21 11:54 IMPRESSION: Moderate joint effusion. No demonstrated fracture. Tricompartmental osteoarthrosis. Electronically Signed: Ghanshyam Clemesn MD (Brooks) at 12:09 EST Reading Location ID and State: [address] [place] [address] , Service support , Assessment & Plan Assessment/Plan (1) Debility: (2) Fall: (3) Knee effusion: PLAN: Patient is an 85-year-old female who presents to the ED at [facility] on 07/05/2021 for evaluation and management of fall with debility. Patient will be admitted for evaluation and possible placement to SNF for therapy. 1) Fall secondary to debility Patient suffered a fall ambulating to her kitchen on 07/04/2021. Denies any loss of consciousness or head trauma. Brain CT does not demonstrate any acute intracranial hemorrhage or mass-effect. X-ray of the left knee does show moderate joint effusion with tricompartmental osteoarthrosis, with no demonstrated fracture. Plan; placed on MedSur 3 for observation, PT/OT eval ordered, case management consult ordered, orthopedics consult ordered, CBC and BMP in a.m., fall precautions ordered, as needed medications ordered. 2) left knee effusion Moderate left knee effusion and diffuse tenderness. X-ray demonstrates moderate joint effusion as above. Patient is anticoagulated on Coumadin, so there is a concern for hemarthrosis. No evidence of hemodynamic compromise. Will consult orthopedics to address effusion. 3) history of DVT Patient had DVT in 2017, IVC filter subsequently placed and patient is anticoagulated on Coumadin. INR is therapeutic at 2.7. Continue Coumadin. Hold parameters in place. 4) paroxysmal atrial fibrillation Patient on sotalol and metoprolol for rate control, anticoagulated on Coumadin as above. Continue home regimen. 5) HTN On metoprolol, sotalol and losartan as above, continue all. 6) hypothyroidism Continue levothyroxine. 7) overactive bladder Continue Myrbetriq. CODE STATUS: Full code DVT prophylaxis - Coumadin Patient seen by David Stratton PA-C, under the supervision of Dr. Bazzi. Time spent on patient care: 25 minutes. Documented by User: Dr. Zully Bazzi MD 07/05/21 17:23 HPI - General General Date of Admission: 07/05/21 REPLACED BY [facility] Medical History (Updated 07/05/21 @ 17:16 by Debo Rangel) Dementia DVT (deep venous thrombosis) History of blood clots Hyperlipidemia Hypertension Hypothyroidism Paroxysmal atrial fibrillation Rheumatoid arthritis Home Medications metoprolol tartrate 25 mg PO BID 05/15/15 [History Last Taken 07/05/21] raloxifene 60 mg PO DAILY 06/07/17 [History Last Taken 07/05/21] losartan 100 mg tablet 100 mg PO DAILY 06/19/17 [History Last Taken 07/05/21] sotalol 80 mg tablet 40 mg PO BID tab 07/06/19 [History Last Taken 07/05/21] warfarin 3 mg tablet 3 mg PO MOWEFRSA 07/06/19 [History Last Taken 07/05/21] Myrbetriq 50 mg PO DAILY 09/21/20 [History Last Taken 07/04/21] fexofenadine 180 mg PO DAILY 09/21/20 [History Last Taken 07/04/21] levothyroxine 200 mcg PO DAILY 09/21/20 [History Last Taken 07/05/21] warfarin 4 mg PO SUTUTH 09/21/20 [History Last Taken 07/04/21] acetaminophen 1,000 mg PO Q6H PRN PRN #0 tab 09/30/20 [Rx Last Taken 07/05/21] sulfasalazine [Azulfidine] 500 mg PO BID 07/05/21 [History Last Taken 07/05/21] Allergy/AdvReac Type Severity Reaction Status Date / Time ertapenem [From Invanz] Allergy Rash Verified 07/05/21 17:12 Penicillins Allergy Unknown Verified 09/21/20 12:58 Family History (Updated 07/05/21 @ 16:49 by David GONZALEZ) Father CVA (cerebral vascular accident) Mother Cancer Breast. Surgical History (Updated 07/05/21 @ 17:16 by Debo Rangel) H/O discectomy History of appendectomy History of embolic filter insertion S/P insertion of IVC (inferior vena caval) filter Status post right knee replacement Social History household members: none Smoking Status: Never smoker alcohol intake: never substance use type: does not use Results Lab / Micro Data Result Diagrams: 07/05/21 15:55 07/05/21 15:55
--- NOTE | 2021-07-05 18:07 | CPS ---
unable to perform IS maneuvers due to weak inspoiration
[2021-07-05] MEDS: Menthol/Lanolin/Calamine/Znox 113 GM Tube 1 APPLIC TOPICAL (22:19)
[2021-07-05] MEDS: Metoprolol Tartrate 25 MG Tablet PO (22:22)
[2021-07-05] MEDS: Sotalol Hydrochloride 80 MG Tablet 40 MG PO (22:22)
[2021-07-05] MEDS: Acetaminophen 325 MG Tablet 650 MG PO (22:29)
[2021-07-06] VITALS (8 sets, daily range): BP systolic 121–154; BP diastolic 43–73; PULSE 68–84; RESP 16–18; TEMP 36.5–38.2; O2SAT 96–99
[2021-07-06 01:47] LABS: Mucous, Urine 0 SEEN /hpf (<or=2+)
[2021-07-06 01:50] LABS: Color, Urine Yellow (Yellow); Glucose, Dipstick Normal (Normal); Ketone-Dipstick Negative (Negative); Leukocyte Esterase-Dipstick 500 /ul (Negative); Nitrite-Dipstick Negative (Negative); Occult Blood-Urine 25 /ul (Negative); Protein-Dipstick 15 mg/dl (Negative); Specific Gravity, Urine 1.015 (1.002-1.030); Urine Bilirubin Dipstick Negative (Negative); Urine Urobilinogen 1 mg/dl (Normal)
[2021-07-06 02:11] LABS: Bacteria 4+ /hpf (None Seen); Red Blood Cells-Urine 0-5 SEEN /hpf (0-5); Urine Clarity Cloudy (Clear); White Blood Cells 25-50 SEEN /hpf (0-5)
[2021-07-06 02:12] LABS: Squamous Epithelial Cells - UA 0-5 SEEN /hpf (5-10)
--- NOTE | 2021-07-06 02:50 | PCM.PN.BLA ---
Progress Note Nurse reports cloudy foul-smelling urine. Urinalysis reviewed. Urinalysis abnormal. Will start patient on ceftriaxone
[2021-07-06] MEDS: Ceftriaxone 1 GM/50 ML BAG IV ×2 (03:19→20:42)
[2021-07-06] MEDS: 0.9% Saline Lock 10 ML Syringe IV (03:20)
[2021-07-06] MEDS: Levothyroxine 100 MCG Tablet 200 MCG PO (05:30)
[2021-07-06 05:52] LABS: International Normalized Ratio 2.8; Prothrombin Time (Protime)PT. 28.4 SECONDS (11.7-14.9)
[2021-07-06 06:13] LABS: ALB/GLOB Ratio 0.8 RATIO (0.9-2.4); AST(SGOT) 11 U/L (15-37); Alanine Aminotransfer ALT/SGPT 9 U/L (13-56); Albumin, Serum 2.7 g/dL (3.2-5.0); Alkaline Phosphatase 60 U/L (45-117); Anion Gap 4 (5-15); BUN 17 mg/dL (7-18); BUN/Creat Ratio 19.8 RATIO (10-20); Calcium,Total 8.6 mg/dL (8.5-10.1); Chloride 108 mmol/L (98-107); Creatinine, Serum 0.86 mg/dL (0.55-1.02); EST Glomerular Filtration Rate 67 mL/min (>60); Est Glom Filt Rate - Afr Amer 81 mL/min (>60); Estimated Creatinine Clearance 36.09 ml/min; Globulin 3.6 g/dL (2.2-4.2); Glucose 98 mg/dL (74-106); Protein, Total 6.3 g/dL (6.4-8.2); Sodium Level 140 mmol/L (136-145)
[2021-07-06] MEDS: Menthol/Lanolin/Calamine/Znox 113 GM Tube 1 APPLIC TOPICAL ×3 (06:32→20:42)
--- NOTE | 2021-07-06 07:22 | PN.HOSP_ITS ---
Subjective Subjective Patient is an 85-year-old lady admitted with a fall Objective Data Objective Data Vital Signs: Vital Signs Temp Pulse Resp BP Pulse Ox 98.4 F 68 16 132/59 H 96 07/06/21 03:27 07/06/21 03:27 07/06/21 03:27 07/06/21 03:27 07/06/21 03:27 Oxygen Delivery Method Room Air Weight: 78.8 kg Body Mass Index (BMI) 32.7 Intake & Output: Intake and Output for Last 24 Hours 07/04/21 07/05/21 07/06/21 23:59 23:59 23:59 Intake Total 200 / 200 550 / 550 Output Total 900 / 900 Balance 200 / 200 -350 / -350 Lab / Micro Data Result Diagrams: 07/05/21 15:55 07/06/21 04:25 Labs: Laboratory Results - last 24 hr 07/05/21 15:55: WBC 11.1 H, RBC 3.61 L, Hgb 11.2 L, Hct 33.9 L, MCV 93.9, MCH 31.0, MCHC 33.0, RDW Std Deviation 46.7 H, RDW Coeff of Jackie 13.5, Plt Count 326, MPV 10.0, Immature Gran % (Auto) 0.500, Neut % (Auto) 67.5, Lymph % (Auto) 17.3 L, [place] % (Auto) 13.2 H, Eos % (Auto) 1.0, Baso % (Auto) 0.5, Absolute Neuts (auto) 7.5, Absolute Lymphs (auto) 1.92, Nucleated RBC % 0 07/05/21 15:55: PT 28.1 H, INR 2.7 07/05/21 15:55: Sodium 140, Potassium 4.2, Chloride 108 H, Carbon Dioxide 29.0, Anion Gap 3 L, BUN 18, Creatinine 1.02, Estim Creat Clear Calc 30.43, Est GFR (MDRD) Af Amer 66, Est GFR (MDRD) Non-Af 55 L, BUN/Creatinine Ratio 17.6, Glucose 117 H, Calcium 8.6 07/06/21 01:30: Urine Color Yellow, Urine Clarity Cloudy, Urine pH 6.0, Ur Specific [place] 1.015, Urine Protein 15 H, Urine Glucose (UA) Normal, Urine Ketones Negative, Urine Occult Blood 25 H, Urine Nitrite Negative, Urine Bilirubin Negative, Urine Urobilinogen 1 H, Ur Leukocyte Esterase 500 H, Urine RBC 0-5 SEEN, Urine WBC 25-50 SEEN, Ur Squamous Epith Cells 0-5 SEEN, Urine Bacteria 4+, Urine Mucus 0 SEEN 07/06/21 04:25: PT 28.4 H, INR 2.8 07/06/21 04:25: Sodium 140, Potassium 4.0, Chloride 108 H, Carbon Dioxide 28.0, Anion Gap 4 L, BUN 17, Creatinine 0.86, Estim Creat Clear Calc 36.09, Est GFR (MDRD) Af Amer 81, Est GFR (MDRD) Non-Af 67, BUN/Creatinine Ratio 19.8, Glucose 98, Calcium 8.6, Total Bilirubin 0.50, AST 11 L, ALT 9 L, Alkaline Phosphatase 60, Total Protein 6.3 L, Albumin 2.7 L, Globulin 3.6, Albumin/Globulin Ratio 0.8 L Micro: Microbiology 07/05/21 13:25 Nasal Secretion SARS-CoV-2 Antigen (Rapid) - Final Radiography Diagnostic Testing: Radiology Impression Brain CT 07/05/21 11:38 IMPRESSION: No acute intracranial hemorrhage or mass effect. Electronically Signed: Ghanshyam Clemens MD (Brooks) at 12:08 EST Reading Location ID and State: / [place] , Service support , Knee X-Ray 07/05/21 11:54 IMPRESSION: Moderate joint effusion. No demonstrated fracture. Tricompartmental osteoarthrosis. Electronically Signed: Ghanshyam Clemens MD (Brooks) at 12:09 EST , Physical Exam Narrative GENERAL: Frail looking HEENT: Atraumatic; EYES; Anicteric, Normal Conjunctiva NECK; supple, normal thyroid, RESPIRATORY: Diminished to auscultation CARDIOVASCULAR: Regular S1 S2, GI: soft, normoactive bowel sounds, : No Renal angle tenderness; EXTREMITIES: No edema, no clubbing, MUSCULOSKELETAL: no muscle wasting NEURO: Awake; no lateralizing signs. SKIN: No Rash PSYCH; Flat affect Assessment & Plan Assessment/Plan (1) Debility: (2) Fall: (3) Knee effusion: PLAN: Patient is an 85-year-old lady admitted with a fall 1. Physical debility with falls ?Imaging studies obtained demonstrated left knee effusion with tricompartmental osteoarthrosis with noticeable fracture. Admitted to regular nursing floor requested for PT OT eval 2. Left knee effusion ?Pain meds initiated consult placed to Ortho 3. Hypercoagulable state (factor V Leyden mutation) with previous history of DVT ?Patient has an IVC filter placed. Was also placed on systemic anticoagulation INR is 2.8 as of 06/16/2021 4. Paroxysmal A. fib ?Rate controlled on sotalol as well as metoprolol on systemic anticoagulation with Coumadin with a therapeutic INR 5. Hypothyroidism - Patient is on levothyroxine home dose continued 6. Hypertension - Blood pressure controlled, home medications continued with dose adjustment as needed 7. Overactive bladder 8. DVT prophylaxis ?Patient is on Coumadin with therapeutic INR Charges/Coding Visit Charges OBSV E&M: 06975 Initial observation care L3
--- NOTE | 2021-07-06 09:44 | CASEMGMT ---
Social Work Pt is requiring SNF placement as she cannot return home alone at this. SW spoke with pt oleg Ricci who confirms SNF placement and choices are 1) [facility]CU 2) [facility] 3) [facility]. Phone call to TCU and confirmed no beds are available (initially bed was available and now is not), [facility] is not in network with insurance, [facility] referral sent and left with [facility]. SW will await return call from [facility]. MITCH Clark
[2021-07-06] MEDS: Mirabegron 50 MG TAB.ER.24H PO (10:31)
[2021-07-06] MEDS: Losartan Potassium 100 MG Tablet PO (10:31)
[2021-07-06] MEDS: Metoprolol Tartrate 25 MG Tablet PO ×2 (10:32→20:41)
--- NOTE | 2021-07-06 11:28 | CASEMGMT ---
Social Work SW spoke with Antonella in TCU and there has been a change and now a bed is available for pt. SW met with pt and dgt and they are agreeable to TCU. Augusto at [facility] updated to cancel referral. Precert to be started for TCU at this time. Plan: TCU, pending precert MITCH Clark
[2021-07-06] MEDS: Sotalol Hydrochloride 80 MG Tablet 40 MG PO ×2 (11:39→20:41)
--- NOTE | 2021-07-06 15:25 | CHAPLAIN ---
Type of Pastoral Visit _x__ Initial Visit ___ Follow-up Visit ___ On-call Visit ___ General Patient Visit ___ Spiritual Assessment ___ Family Conference ___ Bereavement ___ Rapid Response ___ Code Blue ___ Other (describe below) Pastoral Care Referral From ___ Patient _x__ Family ___ Nurse ___ Physician ___ Gambling Box Person ___ Title 1 Tutor ___ Other (describe below) Sacrament/Intervention ___ Active listening ___ Anointing ___ Uatsdin ___ Bereavement ___ Communion ___ Misty exploration ___ ___ Life review _x__ Prayer ___ Reconciliation ___ Sacrament of Sick _x__ Supportive presence ___ Wedding ___ Other (describe below) Pastoral Comments patient is not very talkative but does answer questions with simple words or phrases; daughter is present and answers questions; family would like spiritual care support for patient; pt is member of [facility] [employer] but not currently attending; prayer welcomed; future visits welcomed
--- NOTE | 2021-07-06 15:27 | CASEMGMT ---
LEONA CM in to discuss PORRAS form with patient. RN CM explained PORRAS form, patient voiced understanding. Pt signed form and filed in chart. Pt provided with a copy of signed PORRAS form. Patient had no further questions or concerns at this time.
--- NOTE | 2021-07-06 16:30 | CON.PCM_ITS ---
Assessment & Plan Assessment/Plan (1) Knee effusion: QUALIFIERS: Laterality: left Qualified Code(s): M25.462 - Effusion, left knee (2) Left knee DJD: QUALIFIERS: Osteoarthritis type: primary Qualified Code(s): M17.12 - Unilateral primary osteoarthritis, left knee PLAN: Her diagnosis and treatment options regarding her left knee arthritis, recent sprain, effusion, discussed with them at length. She is on a blood thinner. I explained most likely this is a posttraumatic bloody knee effusion. I did offer to aspirate and inject her to the knee. They do understand the risk of aspirating or injecting the knee. Based on her improvement compared to yesterday her daughter decided against intervention such as aspiration or injection. I think that is a reasonable plan based on her improvement as well as temperature elevation last night. I explained if she is having any infection anywhere else in her body, we could increase the chance of spreading it to her knee by placing a needle there. They are going to continue with ice, Farhad wrap, therapy, weightbearing as tolerated, range of motion. Pain medication if needed. We can see her in the office as an outpatient. All of their questions were answered. Multiple medical problems including dementia, history of factor V Leiden. On blood thinners. Continue evaluation and treatment per hospitalist service Orthopedic service will sign off. This note was generated with [employer] dictation software. It may contain incorrect words, spelling, and punctuation that were not noted in checking the note before signing. HPI Consult Data Date of Consult: 07/06/21 HPI Narrative HPI Narrative: SG CARLISLE, is a 85 F who presents with left knee pain and swelling. Reportedly on July 04 patient may have fallen and bumped her knee. She was able to continue walking. She did ultimately develop some pain and swelling. She has been brought to the hospital and admitted. Orthopedics was consulted. They deny any known fevers or chills. According to the patient, her daughter, and her nurse, her knee is much better today with less pain and less swelling. She does have a history of left knee arthritis. She does have a history of previous right knee replacement. [facility] Medical History (Updated 07/06/21 @ 16:[address] Domingo Calloway MD) Dementia DVT (deep venous thrombosis) History of blood clots Hyperlipidemia Hypertension Hypothyroidism Paroxysmal atrial fibrillation Rheumatoid arthritis Home Medications metoprolol tartrate 25 mg PO BID 05/15/15 [History Last Taken 07/05/21] raloxifene 60 mg PO DAILY 06/07/17 [History Last Taken 07/05/21] losartan 100 mg tablet 100 mg PO DAILY 06/19/17 [History Last Taken 07/05/21] sotalol 80 mg tablet 40 mg PO BID tab 07/06/19 [History Last Taken 07/05/21] warfarin 3 mg tablet 3 mg PO MOWEFRSA 07/06/19 [History Last Taken 07/05/21] Myrbetriq 50 mg PO DAILY 09/21/20 [History Last Taken 07/04/21] fexofenadine 180 mg PO DAILY 09/21/20 [History Last Taken 07/04/21] levothyroxine 200 mcg PO DAILY 09/21/20 [History Last Taken 07/05/21] warfarin 4 mg PO SUTUTH 09/21/20 [History Last Taken 07/04/21] acetaminophen 1,000 mg PO Q6H PRN PRN #0 tab 09/30/20 [Rx Last Taken 07/05/21] sulfasalazine [Azulfidine] 500 mg PO BID 07/05/21 [History Last Taken 07/05/21] Allergy/AdvReac Type Severity Reaction Status Date / Time ertapenem [From Invanz] Allergy Rash Verified 07/05/21 17:12 Penicillins Allergy Unknown Verified 09/21/20 12:58 Family History (Updated 07/05/21 @ 16:49 by David GONZALEZ) Father CVA (cerebral vascular accident) Mother Cancer Breast. Surgical History (Updated 07/05/21 @ 17:16 by Debo Rangel) H/O discectomy History of appendectomy History of embolic filter insertion S/P insertion of IVC (inferior vena caval) filter Status post right knee replacement Social History household members: none Smoking Status: Never smoker alcohol intake: never substance use type: does not use ROS ROS Narrative According to her daughter and the patient no recent changes to eyes ears nose or throat heart or lungs bowel or bladder Physical Exam Narrative Right knee has a well-healed anterior incision. Left knee has grade 2+ effusion. Left knee has no significant joint line tenderness. Left knee had no severe patellofemoral pain or crepitance. Left knee motion is 0-70 degrees. Reportedly she has a history of a stiff knee. She had good ability to do a straight leg raise against gravity bilaterally. No calf pain or swelling bilaterally. No pain with axial loading of the left knee. No pain with gentle varus and valgus stress testing. Patient had no significant pain on palpation about the knee calf or leg. X-rays of the left knee reviewed showing grade 4 osteoarthritis with [id number] contact. Bone spur formation. Knee effusion. Laboratory work and vital signs reviewed. She did have a temperature of 100.7 last evening. Treated with Tylenol. Notes from hospitalist reviewed Lab / Micro Data Result Diagrams: 07/05/21 15:55 07/06/21 04:25 Labs: Laboratory Results - last 24 hr 07/05/21 15:55: PT 28.1 H, INR 2.7 07/06/21 01:30: Urine Color Yellow, Urine Clarity Cloudy, Urine pH 6.0, Ur Specific [place] 1.015, Urine Protein 15 H, Urine Glucose (UA) Normal, Urine Ketones Negative, Urine Occult Blood 25 H, Urine Nitrite Negative, Urine Bilirubin Negative, Urine Urobilinogen 1 H, Ur Leukocyte Esterase 500 H, Urine RBC 0-5 SEEN, Urine WBC 25-50 SEEN, Ur Squamous Epith Cells 0-5 SEEN, Urine Bacteria 4+, Urine Mucus 0 SEEN 07/06/21 04:25: PT 28.4 H, INR 2.8 07/06/21 04:25: Sodium 140, Potassium 4.0, Chloride 108 H, Carbon Dioxide 28.0, Anion Gap 4 L, BUN 17, Creatinine 0.86, Estim Creat Clear Calc 36.09, Est GFR (MDRD) Af Amer 81, Est GFR (MDRD) Non-Af 67, BUN/Creatinine Ratio 19.8, Glucose 98, Calcium 8.6, Total Bilirubin 0.50, AST 11 L, ALT 9 L, Alkaline Phosphatase 60, Total Protein 6.3 L, Albumin 2.7 L, Globulin 3.6, Albumin/Globulin Ratio 0.8 L Micro: Microbiology 07/05/21 13:25 Nasal Secretion SARS-CoV-2 Antigen (Rapid) - Final
[2021-07-07] VITALS (9 sets, daily range): BP systolic 79–116; BP diastolic 47–54; PULSE 69–90; RESP 18; TEMP 36.3–36.7; O2SAT 91–96
[2021-07-07] MEDS: Levothyroxine 100 MCG Tablet 200 MCG PO (06:21)
[2021-07-07] MEDS: Menthol/Lanolin/Calamine/Znox 113 GM Tube 1 APPLIC TOPICAL (06:21)
--- NOTE | 2021-07-07 07:21 | PCM.PN.HOSP ---
Subjective Subjective Patient seen plan is for patient to be discharged to [facility]. Patient was offered knee aspiration by Ortho patient and family declined we will continue with conservative management at this point Objective Data Objective Data Vital Signs: Vital Signs Temp Pulse Resp BP Pulse Ox 98.1 F 69 18 116/54 L 94 07/07/21 02:41 07/07/21 02:41 07/07/21 02:41 07/07/21 02:41 07/07/21 02:41 Oxygen Delivery Method Room Air Weight: 82.6 kg Body Mass Index (BMI) 32.7 Intake & Output: Intake and Output for Last 24 Hours 07/05/21 07/06/21 07/07/21 23:59 23:59 23:59 Intake Total 200 / 200 720 / 720 Output Total 1270 / 1270 200 / 200 Balance 200 / 200 -550 / -550 -200 / -200 Lab / Micro Data Result Diagrams: 07/05/21 15:55 07/06/21 04:25 Micro: Microbiology 07/05/21 13:25 Nasal Secretion SARS-CoV-2 Antigen (Rapid) - Final Physical Exam Narrative GENERAL: Frail looking HEENT: Atraumatic; EYES; Anicteric, Normal Conjunctiva NECK; supple, normal thyroid, RESPIRATORY: Diminished to auscultation CARDIOVASCULAR: Regular S1 S2, GI: soft, normoactive bowel sounds, : No Renal angle tenderness; EXTREMITIES: No edema, no clubbing, MUSCULOSKELETAL: no muscle wasting NEURO: Awake; no lateralizing signs. SKIN: No Rash PSYCH; Flat affect Assessment & Plan Assessment/Plan (1) Debility: (2) Fall: (3) Knee effusion: QUALIFIERS: Laterality: left Qualified Code(s): M25.462 - Effusion, left knee PLAN: Patient is an 85-year-old lady admitted with a fall 1. Physical debility with falls ?Imaging studies obtained demonstrated left knee effusion with tricompartmental osteoarthrosis with noticeable fracture. Admitted to regular nursing floor requested for PT OT eval 2. Left knee effusion ?Pain meds initiated consult placed to Ortho -07/07/2021;Patient seen plan is for patient to be discharged to [facility]. Patient was offered knee aspiration by Ortho patient and family declined we will continue with conservative management at this point 3. Hypercoagulable state (factor V Leyden mutation) with previous history of DVT ?Patient has an IVC filter placed. Was also placed on systemic anticoagulation INR is 2.8 as of 06/16/2021 4. Paroxysmal A. fib ?Rate controlled on sotalol as well as metoprolol on systemic anticoagulation with Coumadin with a therapeutic INR 5. Hypothyroidism - Patient is on levothyroxine home dose continued 6. Hypertension - Blood pressure controlled, home medications continued with dose adjustment as needed 7. Overactive bladder 8. DVT prophylaxis ?Patient is on Coumadin with therapeutic INR Charges/Coding Visit Charges OBSV E&M: 42956 Subsequent observation care L2
--- NOTE | 2021-07-07 10:31 | TREXTCAR_ITS ---
Diet 07/05/21 17:11 Diet: Cardiac - Heart Healthy Food consistency:: Regular Liquid Consistency:: Regular/Thin Is pt able to select menu?: No Diet Comments: Pt. is complete feed, please notify nurse when tray arrives Wound(s) coccyx: Wound Type: Pressure Injury L buttock: Wound Type: Pressure Injury Therapies Physical Therapy: Eval and Treat Occupational Therapy: Eval and Treat Problem/Diagnosis (1) Debility: Status: Acute (2) Fall: Status: Acute (3) Knee effusion: Status: Acute Allergies/Procedures Done in Hospital Allergies ertapenem [From Invanz] Allergy (Verified 07/05/21 17:12) Rash Penicillins Allergy (Verified 09/21/20 12:58) Unknown Type of Care/Length of Stay Estimated LOS: Convalescent Care Less Than 30 days Type of Care Needed: Skilled Rehab Potential: Good Prognosis: Good Additional Orders/Day of Discharge Day of Discharge: 07/07/21 Dietary and Speech Recommendations Dietitian Recommendations/Changes: Cardiac diet as ordered and as intake established at meals; liberalize to regular diet as indicated. Continue 120 ml ensure enlive 4 times per day w/ medpass until intake established for adequacy at meals. Will add Luis BID as needed depending on skin status and wound details as assessed. Discharge Plan Admission Admit Date/Time: 07/05/21 16:04 Attending Provider: Jesse Prather Primary Care Provider: Melvin Weber Consulting Providers: Domingo Calloway Discharge Orders/Prescriptions Prescriptions: New sennosides-docusate sodium [Stool Softener-Stimulant Laxat] 8.6-50 mg Tablet 2 tab PO BID PRN PRN (Reason: Constipation) Qty: 0 RF: 0 melatonin 3 mg Tablet 3 mg PO QHS PRN PRN (Reason: Insomnia) Qty: 0 RF: 0 cefdinir 300 mg Capsule 300 mg PO Q12 Qty: 0 RF: 0 menthol-zinc oxide [Calmoseptine] 0.44-20.6 % Ointment 1 applic topical TID Qty: 0 RF: 0 Continued warfarin [Jantoven] 3 mg tablet 3 mg PO MOWEFRSA RF: 0 sotalol 80 mg tablet 40 mg PO BID RF: 0 raloxifene 60 MG tablet 60 mg PO DAILY RF: 0 fexofenadine 180 mg Tablet 180 mg PO DAILY RF: 0 Myrbetriq 50 mg Tablet Extended Release 24 Hr 50 mg PO DAILY RF: 0 levothyroxine 200 mcg tablet 200 mcg PO DAILY RF: 0 warfarin 4 mg Tablet 4 mg PO SUTUTH RF: 0 acetaminophen 500 mg Tablet 1,000 mg PO Q6H PRN PRN (Reason: Pain Score 1-10) Qty: 0 RF: 0 sulfasalazine [Azulfidine] 500 mg tablet 500 mg PO BID RF: 0 Discontinued losartan 100 mg tablet 100 mg PO DAILY RF: 0 metoprolol tartrate 25 MG tablet 25 mg PO BID RF: 0 Referrals / Follow Up: Melvin Weber [Primary Care Provider] - Within 2 Weeks Disposition Disposition (needs filled in before D/C Order can be placed): Intermediate Facility
--- NOTE | 2021-07-07 10:40 | CASEMGMT ---
Addendum entered by Ayaka Ybarra 07/07/21 10:50: SW in to speak with pt and pt's daughter Keiry. SW updated pt and Keiry that pt has been approved for TCU and will discharge to TCU today. Pt and Keiry state understanding. Plan: TCU today Original Note: Social Work Note SW received call from [facility] with TCU stating pre-cert has been obtained and pt can discharge to TCU today. MARGARITA updated physician. Plan: TCU today Ayaka Ybarra SAFETY SUPERVISOR, EMT/DISPATCHER
--- NOTE | 2021-07-07 10:44 | DS.PCM_ITS ---
Providers Date of Admission: 07/05/21 Primary Care Physician: Melvin Weber Consultations 07/05/21 17:11 Consult: Orthopedics Routine Consulting Provider: Domingo Calloway Reason for Consult: Fall, L knee effusion, suspect hemarthrosis on coumadin for VTE EMERGENT Consult: No MD Notified: Yes Date Notified: 07/05/21 Time Notified: 16:06 Method of Notification: Text Reason For Visit: FT ADULT, FALL W/ L KNEE PAIN Diagnosis Discharge Diagnosis (1) Debility: Status: Acute Code(s): R53.81 - Other malaise (2) Fall: Status: Acute Code(s): W19.XXXA - Unspecified fall, initial encounter (3) Knee effusion: Status: Acute Code(s): M25.469 - Effusion, unspecified knee Qualifiers: Laterality: left Qualified Code(s): M25.462 - Effusion, left knee Medications at Discharge Home Medications raloxifene 60 mg PO DAILY 06/07/17 sotalol 80 mg tablet 40 mg PO BID tab 07/06/19 warfarin 3 mg tablet 3 mg PO MOWEFRSA 07/06/19 Myrbetriq 50 mg PO DAILY 09/21/20 fexofenadine 180 mg PO DAILY 09/21/20 levothyroxine 200 mcg PO DAILY 09/21/20 warfarin 4 mg PO SUTUTH 09/21/20 acetaminophen 1,000 mg PO Q6H PRN PRN #0 tab 09/30/20 sulfasalazine [Azulfidine] 500 mg PO BID 07/05/21 cefdinir 300 mg PO Q12 #0 cap 07/07/21 melatonin 3 mg PO QHS PRN PRN #0 tab 07/07/21 menthol-zinc oxide [Calmoseptine] 1 applic TOPICAL TID #0 g 07/07/21 sennosides-docusate sodium [Stool Softener-Stimulant Laxat] 2 tab PO BID PRN PRN #0 tab 07/07/21 Hospital Course Summary of Care Provided Minutes Spent on Discharge: 35 Hospital Course: Patient is an 85-year-old lady admitted with a fall 1. Physical debility with falls ?Imaging studies obtained demonstrated left knee effusion with tricompartmental osteoarthrosis with noticeable fracture. Admitted to regular nursing floor requested for PT OT eval 2. Left knee effusion ?Pain meds initiated consult placed to Ortho -07/07/2021;Patient seen plan is for patient to be [facility] to [facility] facility. Patient was offered knee aspiration by Ortho patient and family declined we will continue with conservative management at this point 3. Hypercoagulable state (factor V Leyden mutation) with previous history of DVT ?Patient has an IVC filter placed. Was also placed on systemic anticoagulation INR is 2.8 as of 06/16/2021 4. Paroxysmal A. fib ?Rate controlled on sotalol as well as metoprolol on systemic anticoagulation with Coumadin with a therapeutic INR 5. Hypothyroidism - Patient is on levothyroxine home dose continued 6. Hypertension - Blood pressure controlled, home medications continued with dose adjustment as needed 7. Overactive bladder 8. DVT prophylaxis ?Patient is on Coumadin with therapeutic INR Physical Exam Narrative GENERAL: Frail looking HEENT: Atraumatic; EYES; Anicteric, Normal Conjunctiva NECK; supple, normal thyroid, RESPIRATORY: Diminished to auscultation CARDIOVASCULAR: Regular S1 S2, GI: soft, normoactive bowel sounds, : No Renal angle tenderness; EXTREMITIES: No edema, no clubbing, MUSCULOSKELETAL: no muscle wasting NEURO: Awake; no lateralizing signs. SKIN: No Rash PSYCH; Flat affect Weight / BMI Weight Weight: 82.6 kg Body Mass Index (BMI) 32.7 ABG / Lab / Microbiology Data Result Diagrams: 07/05/21 15:55 07/06/21 04:25 Microbiology: Microbiology 07/06/21 01:30 Urine Catheter - Catheter Urine Culture - Preliminary Presumptive E. coli 07/05/21 13:25 Nasal Secretion SARS-CoV-2 Antigen (Rapid) - Final D/C Instructions Discharge Diet: No restrictions Discharge Activity: Return to Normal Activity Call your doctor if you observe: Fever of 101 or Higher, Shortness of breath, Fainting spells and Chest pain Meaningful Use Info Meaningful Use Diagnoses (Choose all that apply): None applicable Discharge Plan Admission Admit Date/Time: 07/05/21 16:04 Attending Provider: Jesse Prather Primary Care Provider: Melvin Weber Consulting Providers: Domingo Calloway Discharge Orders/Prescriptions Prescriptions: New sennosides-docusate sodium [Stool Softener-Stimulant Laxat] 8.6-50 mg Tablet 2 tab PO BID PRN PRN (Reason: Constipation) Qty: 0 RF: 0 melatonin 3 mg Tablet 3 mg PO QHS PRN PRN (Reason: Insomnia) Qty: 0 RF: 0 cefdinir 300 mg Capsule 300 mg PO Q12 Qty: 0 RF: 0 menthol-zinc oxide [Calmoseptine] 0.44-20.6 % Ointment 1 applic topical TID Qty: 0 RF: 0 Continued warfarin [Jantoven] 3 mg tablet 3 mg PO MO RF: 0 sotalol 80 mg tablet 40 mg PO BID RF: 0 raloxifene 60 MG tablet 60 mg PO DAILY RF: 0 fexofenadine 180 mg Tablet 180 mg PO DAILY RF: 0 Myrbetriq 50 mg Tablet Extended Release 24 Hr 50 mg PO DAILY RF: 0 levothyroxine 200 mcg tablet 200 mcg PO DAILY RF: 0 warfarin 4 mg Tablet 4 mg PO SUTUTH RF: 0 acetaminophen 500 mg Tablet 1,000 mg PO Q6H PRN PRN (Reason: Pain Score 1-10) Qty: 0 RF: 0 sulfasalazine [Azulfidine] 500 mg tablet 500 mg PO BID RF: 0 Discontinued losartan 100 mg tablet 100 mg PO DAILY RF: 0 metoprolol tartrate 25 MG tablet 25 mg PO BID RF: 0 Referrals / Follow Up: Melvin Weber [Primary Care Provider] - Within 2 Weeks Disposition Disposition (needs filled in before D/C Order can be placed): [facility] Charges/Coding Visit Charges OBSV E&M: 08192 Observation care discharge
--- NOTE | 2021-07-07 12:37 | NURSING ---
Report called to Lucila DELGADILLO in TCU pt going into room 12.
== END 2021-07-07 13:35 | disposition skilled nursing facility (03) ==
LOC: ED 11:52 → MS3 16:35
PROVIDERS: Nurse Practitioner Family; Admitting Provider Family Medicine; Emergency Provider Physician Assistant; Visit Provider Internal Medicine
DX: M17.12 Unilateral primary osteoarthritis, left knee (principal); M06.9 Rheumatoid arthritis, unspecified; F03.90 Unspecified dementia, unspecified severity, without behavioral disturbance, psychotic disturbance, mood disturbance, and anxiety; I48.0 Paroxysmal atrial fibrillation; D68.51 Activated protein C resistance; E03.9 Hypothyroidism, unspecified; N32.81 Overactive bladder; E78.5 Hyperlipidemia, unspecified; M25.462 Effusion, left knee; R26.2 Difficulty in walking, not elsewhere classified; I10 Essential (primary) hypertension; R53.81 Other malaise; Z79.01 Long term (current) use of anticoagulants; Z79.810 Long term (current) use of selective estrogen receptor modulators (SERMs); Z79.899 Other long term (current) drug therapy; Z79.890 Hormone replacement therapy; Z86.718 Personal history of other venous thrombosis and embolism; Z91.81 History of falling
CPT/HCPCS: 36415; 70450; 73560; 80048; 80053; 81001; 85025; 85610; 87086; 87088; 87186; 87426; 96365; 96366; 97110; 97162; 97166; 97530; 97535; 97802; 99218; 99251; 99285; A4216; G0378; G0463

== ENCOUNTER 2021-07-07 13:40 | Inpatient (IN) | payer MEDICARE, SELFPAY ==
[2021-07-07 13:54] VITALS: BP 104/51; PULSE 86; RESP 22; TEMP 36.9; O2SAT 97; BMI 32.3
--- NOTE | 2021-07-07 14:17 | NURSING ---
clarified cefdinir stop date with Dr Prather.
[2021-07-07] MEDS: Sotalol Hydrochloride 80 MG Tablet 40 MG PO (17:45)
[2021-07-07] MEDS: sulfaSALAzine 500 MG Tablet PO (17:45)
[2021-07-07] MEDS: Menthol/Lanolin/Calamine/Znox 113 GM Tube 1 APPLIC TOPICAL ×2 (17:46→19:57)
[2021-07-07] MEDS: Cefdinir 300 MG Capsule PO (17:46)
--- NOTE | 2021-07-07 18:40 | HP.PCM_ITS ---
HPI - General General Date of Admission: 07/07/21 HPI Narrative 07/05/2021 SG CARLISLE, is a 85 Female who presents to [facility] with fall. Fall, left knee pain, normally uses cane or walker. Home alone at night, in kitchen, loss balance, fell on left side. No loss of consciousness, no head injury, unable to walk, unable to bear weight left lower extremity. On coumadin for DVT. CT brain negative. X-ray left knee shows effusion. 07/05/2021 Admit to Hospital. PT/OT for retirement facility. Pain control. 07/06/2021 UA consistent with urinary tract infection, start Ceftriaxone. 07/06/2021 Dr. Domingo Calloway consulted, offered left knee arthrocentesis. Daughter declined. 07/07/2021 PT/OT for TCU. Urine culture growing > 100,000 E. Coli. 07/07/2021 Admit to TCU with debility, here for rehabilitation, strengthening, prior to disposition determination. [facility] Medical History Dementia DVT (deep venous thrombosis) History of blood clots Hyperlipidemia Hypertension Hypothyroidism Paroxysmal atrial fibrillation Rheumatoid arthritis Home Medications raloxifene 60 mg PO DAILY 06/07/17 [History Last Taken 07/05/21] sotalol 80 mg tablet 40 mg PO BID tab 07/06/19 [History Last Taken 07/05/21] warfarin 3 mg tablet 3 mg PO MOWEFRSA 07/06/19 [History Last Taken 07/05/21] Myrbetriq 50 mg PO DAILY 09/21/20 [History Last Taken 07/04/21] fexofenadine 180 mg PO DAILY 09/21/20 [History Last Taken 07/04/21] levothyroxine 200 mcg PO DAILY 09/21/20 [History Last Taken 07/05/21] warfarin 4 mg PO SUTUTH 09/21/20 [History Last Taken 07/04/21] acetaminophen 1,000 mg PO Q6H PRN PRN #0 tab 09/30/20 [Rx Last Taken 07/05/21] sulfasalazine [Azulfidine] 500 mg PO BID 07/05/21 [History Last Taken 07/05/21] cefdinir 300 mg PO Q12 07/07/21 [History Last Taken Unknown] melatonin 3 mg PO QHS PRN PRN #0 tab 07/07/21 [Rx Last Taken Unknown] menthol-zinc oxide [Calmoseptine] 1 applic TOPICAL TID 07/07/21 [History Last Taken Unknown] sennosides-docusate sodium [Stool Softener-Stimulant Laxat] 2 tab PO BID PRN PRN #0 tab 07/07/21 [Rx Last Taken Unknown] Allergy/AdvReac Type Severity Reaction Status Date / Time ertapenem [From Invanz] Allergy Rash Verified 07/05/21 17:12 Penicillins Allergy Unknown Verified 09/21/20 12:58 Family History Father CVA (cerebral vascular accident) Mother Cancer Breast. Surgical History H/O discectomy History of appendectomy History of embolic filter insertion S/P insertion of IVC (inferior vena caval) filter Status post right knee replacement Social History household members: none Smoking Status: Never smoker alcohol intake: never substance use type: does not use ROS Constitutional Constitutional: Denies chills, fever(s) or weight gain ENT HEENT: Denies headache(s), nasal congestion or nasal discharge Cardiovascular Cardiovascular: Denies chest pain or palpitations Respiratory/Chest Respiratory/Chest: Denies cough, excessive phlegm production or shortness of breath with exertion Gastrointestinal Gastrointestinal: Denies abdominal pain, nausea or vomiting Genitourinary Genitourinary: Denies dysuria Musculoskeletal Musculoskeletal: Denies joint pain or joint swelling Integumentary Integumentary: Denies rash or wounds Neurologic Neurologic: Denies focal weakness, numbness or tingling Psychiatric Psychiatric: Denies anxiety, auditory hallucinations, depression, homicidal ideation or suicidal ideation Vital Signs Vital Signs Vital Signs: 07/07/21 13:54 07/07/21 15:06 Temperature 98.5 F Temperature Source Temporal Pulse Rate 86 Pulse Rhythm Regular Pulse Strength Normal (2+) Respiratory Rate 22 H Respiratory Effort Normal Non-Labored Respiratory Depth Normal Respiratory Pattern Normal Blood Pressure 104/51 L Blood Pressure Mean 68 Blood Pressure Source Monitor Blood Pressure Position Semi-Fowlers Blood Pressure Location Right Arm Pulse Ox 97 Oxygen Delivery Method Room Air Room Air Weight Weight: 77.7 kg Body Mass Index (BMI) 32.3 Physical Exam Const alert and oriented x3 General Appearance: cooperative HEENT normocephalic Eyes PERRL and EOMs intact bilaterally Neck supple, no JVD and no carotid bruits Resp normal respiratory effort, normal air movement and clear to auscultation bilaterally Cardio regular rate and regular rhythm GI normal to inspection, nondistended, normoactive bowel sounds, non-tender and non-distended Extremity normal capillary refill General Extremity: Negative for edema Skin no rashes or lesions noted General Skin Exam: no breakdown Psych affect normal Appearance: appropriate Results Lab / Micro Data Micro: Microbiology 07/07/21 14:30 Nasal Secretion SARS-CoV-2 Antigen (Rapid) - Final Assessment & Plan Assessment/Plan (1) Debility: (2) Left knee DJD: QUALIFIERS: Osteoarthritis type: primary Qualified Code(s): M17.12 - Unilateral primary osteoarthritis, left knee (3) Effusion, left knee: (4) Urinary tract infection: (5) Alzheimer disease: (6) Hypertension: (7) Osteoporosis: (8) Atrial fibrillation: (9) Overactive bladder: (10) Allergic rhinitis: (11) Hypothyroidism: (12) Rheumatoid arthritis: PLAN: 85 year old female with below past medical history hospitalized for fall, left knee pain, left knee effusion, complicated by E. Coli urinary tract infection, admitted to TCU with debility, here for rehabilitation, strengthening, prior to disposition determination. * Debility - PT/OT. * Cognition - ST. * Pain - Tylenol 1000mg q6h prn pain (1-3), Tramadol 50mg q6h prn pain (4-5), Oxycodone 2.5mg q4h prn pain (6-10). * Bowel - Miralax 17gm daily, Senna/colace 1 tablet bid, Dulcolax 10mg daily prn. * Adult immunization - Administer prevnar 20, fluzone, covid19 vaccine as appropriate. * DVT prophylaxis - Not necessary, on warfarin. * E. Coli urinary tract infection - Cefdinir 300mg q12h thru 07/12/2021. * Hypothyroidism - Levothyroxine 200mcg daily. * Allergic Rhinitis - Loratadine 10mg daily. * Insomnia - Melatonin 3mg qhs prn. * Skin irritation - Calmoseptine topical tid. * Overactive bladder - Myrbetriq 50mg daily. * Tinea Corporis - Nystatin powder topical bid. * Osteoporosis - Evista 60mg daily. * Atrial fibrillation - Sotalol 40mg bid, Warfarin 3/4mg alternating, follow INR. * Rheumatoid arthritis - Sulfasalazine 500mg bidcm.
[2021-07-07] MEDS: Nystatin Powder 15gm Bottle 1 APPLIC TOPICAL (19:58)
[2021-07-07] MEDS: Senna/Docusate Sodium 1 Tablet PO (20:02)
[2021-07-08] MEDS: Levothyroxine 100 MCG Tablet 200 MCG PO (05:46)
[2021-07-08] MEDS: Loratadine 10 MG Tablet PO (05:46)
[2021-07-08] MEDS: Mirabegron 50 MG TAB.ER.24H PO (05:46)
[2021-07-08] MEDS: Cefdinir 300 MG Capsule PO ×2 (05:46→17:40)
[2021-07-08] MEDS: Raloxifene HCl 60 MG Tablet PO (05:46)
[2021-07-08] MEDS: Menthol/Lanolin/Calamine/Znox 113 GM Tube 1 APPLIC TOPICAL ×3 (05:47→20:14)
[2021-07-08] MEDS: Polyethylene Glycol 3350 17 GM PACKET PO (05:48)
[2021-07-08] MEDS: Sotalol Hydrochloride 80 MG Tablet 40 MG PO ×2 (05:49→17:41)
[2021-07-08 05:50] LABS: Absolute Lymphocyte Count 2.25 X10^3/uL (0.83-4.51); Absolute Neutrophil Count 3.6 X10^3/uL (2.0-7.7); Basophil# 0.04 X10^3/uL; Basophil% 0.6 % (0-1); Eosinophil# 0.47 X10^3/uL; Eosinophils% 6.7 % (0-5); Hematocrit 32.3 % (37-47); Lymphocyte # 2.25 X10^3/ul (0.83-4.51); Mean Corp Hgb Conc 34.1 g/dL (32-36); Mean Corpuscular Hgb 31.9 pg (27.0-32.0); Mean Corpuscular Volume 93.6 fL (81-99); Mean Platelet Vol. 9.8 fl (6.2-12.0); Monocyte# 0.69 X10^3/uL; Monocyte% 9.8 % (0-10); NRBC Flagged by Analyzer 0 % (0-5); Neutrophil # 3.56 X10^3/uL (2.7-7.7); Neutrophil % 50.6 % (47-70); Platelet Count 335 K/mm3 (150-450); RBC Distribution Width CV 13.6 % (11.6-14.6); RBC Distribution Width SD 46.5 fl (35.1-43.9); Red Blood Count 3.45 M/mm3 (4.2-5.4)
[2021-07-08] MEDS: Nystatin Powder 15gm Bottle 1 APPLIC TOPICAL ×2 (05:50→20:14)
[2021-07-08] MEDS: Senna/Docusate Sodium 1 Tablet PO ×2 (05:51→17:40)
[2021-07-08 06:00] LABS: International Normalized Ratio 1.9; Prothrombin Time (Protime)PT. 21.3 SECONDS (11.7-14.9)
[2021-07-08 06:33] LABS: Anion Gap 4 (5-15); BUN 30 mg/dL (7-18); BUN/Creat Ratio 32.7 RATIO (10-20); Calcium,Total 8.7 mg/dL (8.5-10.1); Chloride 108 mmol/L (98-107); Creatinine, Serum 0.92 mg/dL (0.55-1.02); EST Glomerular Filtration Rate 62 mL/min (>60); Est Glom Filt Rate - Afr Amer 75 mL/min (>60); Estimated Creatinine Clearance 33.12 ml/min; Glucose 96 mg/dL (74-106); Potassium 4.1 mmol/L (3.5-5.1); Sodium Level 140 mmol/L (136-145)
--- NOTE | 2021-07-08 07:43 | PCM.PN.RX ---
Progress Note - Pharmacy Subjective: TCU ADMISSION Objective: Allergies ertapenem [From [facility]] Allergy (Verified 07/05/21 17:12) Rash Penicillins Allergy (Verified 09/21/20 12:58) Unknown Current Medications Generic Name Dose Route Start Last Admin Trade Name Freq PRN Reason Stop Dose Admin Acetaminophen 1,000 mg 07/07/21 19:00 Acetaminophen 500 Mg Tablet PO Q6H PRN PRN Pain Score 1-3 Bisacodyl 10 mg 07/07/21 18:59 Bisacodyl 5 Mg Tablet PO DAILY PRN Constipation Calamine/Phenol 1 applic 07/07/21 14:00 07/08/21 05:47 Menthol/Lanolin/Calamine/Znox 113 Gm Tube TOPICAL 1 applic TID CONNIE Administration Protocol Cefdinir 300 mg 07/07/21 18:00 07/08/21 05:46 Cefdinir 300 Mg Capsule PO 07/12/21 06:01 300 mg Q12 CONNIE Administration Levothyroxine Sodium 200 mcg 07/08/21 06:00 07/08/21 05:46 Levothyroxine 100 Mcg Tablet PO 200 mcg DAILY CONNIE Administration Loratadine 10 mg 07/08/21 06:00 07/08/21 05:46 Loratadine 10 Mg Tablet PO 10 mg DAILY CONNIE Administration Melatonin 3 mg 07/07/21 14:00 Melatonin 3 Mg Tablet PO QHS PRN PRN Insomnia Mirabegron 50 mg 07/08/21 06:00 07/08/21 05:46 Mirabegron 50 Mg Tab.Er.24h PO 50 mg DAILY CONNIE Administration Nystatin 1 applic 07/07/21 22:00 07/08/21 05:50 Nystatin Powder 15gm Bottle TOPICAL 1 applic 0600,2200 CONNIE Administration Protocol Oxycodone HCl 2.5 mg 07/07/21 18:59 Oxycodone 5 Mg Tablet PO Q4H PRN PRN Pain Score 6-10 Polyethylene Glycol 17 gm 07/08/21 06:00 07/08/21 05:48 Polyethylene Glycol 3350 17 Gm Packet PO 17 gm DAILY CONNIE Administration Raloxifene HCl 60 mg 07/08/21 06:00 07/08/21 05:46 Raloxifene Hcl 60 Mg Tablet PO 60 mg DAILY CONNIE Administration Senna/Docusate Sodium 1 tablet 07/07/21 20:00 07/08/21 05:51 Senna/Docusate Sodium 1 Tablet PO 1 tablet BID [facility] Administration Sodium Chloride 10 - 40 ml 07/07/21 18:50 0.9% Saline Lock 10 Ml Syringe IV UD PRN SALINE FLUSH Sotalol HCl 40 mg 07/07/21 18:00 07/08/21 05:49 Sotalol Hydrochloride 80 Mg Tablet PO 40 mg BID CONNIE Administration Sulfasalazine 500 mg 07/07/21 17:00 07/07/21 17:45 Sulfasalazine 500 Mg Tablet PO 500 mg BIDCM CONNIE Administration Tramadol HCl 50 mg 07/07/21 18:59 Tramadol 50 Mg Tablet PO Q6H PRN PRN Pain Score 4-5 Tuberculin PPD 0.1 ml 07/08/21 10:00 Tuberculin,Purif.Prot.Deriv. 50 Tu/Ml Vial ID 07/08/21 10:01 X1 ONE Tuberculin PPD 0.1 ml 07/15/21 10:00 Tuberculin,Purif.Prot.Deriv. 50 Tu/Ml Vial ID 07/15/21 10:01 X1 ONE Warfarin Sodium 3 mg 07/07/21 17:00 07/07/21 17:46 Warfarin 3 Mg Tablet PO 3 mg [id number] [facility] Administration Warfarin Sodium 4 mg 07/08/21 17:00 Warfarin 4 Mg Tablet PO [email or web address] [facility] Problem List (Last Reviewed 07/07/21 @ 18:[address] Arnaud Richardson MD) Rheumatoid arthritis (Acute) Hypothyroidism (Acute) Allergic rhinitis (Acute) Overactive bladder (Acute) Atrial fibrillation (Acute) Osteoporosis (Acute) Hypertension (Chronic) Alzheimer disease (Acute) Urinary tract infection (Acute) Effusion, left knee (Acute) Debility (Acute) Left knee DJD (Acute) Vital Signs Temp Pulse Resp BP Pulse Ox 98.5 F 86 22 H 104/51 L 97 07/07/21 13:54 07/07/21 13:54 07/07/21 13:54 07/07/21 13:54 07/07/21 13:54 Oxygen Delivery Method Room Air Weight: 77.7 kg Body Mass Index (BMI) 32.3 Sodium 140 mmol/L (136-145) 07/08/21 05:33 Potassium 4.1 mmol/L (3.5-5.1) 07/08/21 05:33 Chloride 108 mmol/L (98-107) H 07/08/21 05:33 Carbon Dioxide 28.0 mmol/L (21.0-32.0) 07/08/21 05:33 Anion Gap 4 (5-15) L 07/08/21 05:33 BUN 30 mg/dL (7-18) H 07/08/21 05:33 Creatinine 0.92 mg/dL (0.55-1.02) 07/08/21 05:33 Est GFR (MDRD) Af Amer 75 mL/min (>60) 07/08/21 05:33 Est GFR (MDRD) Non-Af 62 mL/min (>60) 07/08/21 05:33 BUN/Creatinine Ratio 32.7 RATIO (10-20) H 07/08/21 05:33 Glucose 96 mg/dL (74-106) 07/08/21 05:33 Assessment/Plan: 1. ESBL E.coli UTI: Cefdinir 300mg PO BID thru 07/12/21. E.coli that the patient grew is resistant to Cefdinir. Please consider switching antibiotics to something the e.coli is susceptible to or consider stopping therapy all together if patient is not symptomatic and has been on antibiotics for several days. 2. Pain: Tylenol 1000mg PO Q6h PRN Pain 1-3, Tramadol 50mg PO Q6h PRN Pain 4-5, Oxycodone 2.5mg PO Q4h PRN Pain 6-10. Please continue to monitor for increased/decreased S/S pain, PRN medication usage, renal function, oversedation. 3. Atrial Fibrillation: Sotalol 40mg PO BID, Warfarin 4mg // and 3mg All other days. Please continue to monitor BP, pulse, INR (last 1.9 on 07/08). If INR remains <2, consider adjusting dose to a goal INR of 2-3. 4. Hypothyroidism: Synthroid 200mcg PO Daily. Please continue to monitor S/S hypothyroidism, thyroid function tests as clinically indicated. 5. OAB: Myrbetriq 50mg PO Daily. Please continue to monitor for improvement in OAB symptoms, urinary retention. 6. Rheumatoid arthritis: Sulfasalazine 500mg PO BID. Please continue to monitor for improvement in RA symptoms, nausea, vomiting, headache. 7. Osteoporosis: Raloxifene 60mg PO Daily. Please continue to monitor labs appropriately, hot flashes, nausea, or development of infections. 8. Allergic Rhinitis: Claritin 10mg PO Daily. Please continue to monitor for improvement in allergy symptoms. 9. Insomnia: Melatonin 3mg PO QHS PRN. Please continue to monitor for medication effectiveness. If medication not effective, may try administering at least 2 hours prior to desired bedtime to allow medication to take effect. Psychotropic Medications: None Unnecessary Medications: None Bowel Regimen: Miralax 17g PO Daily, Senna/Docusate 1 tab PO BID, Dulcolax 10mg PO Daily PRN. Please continue to monitor for increased/decreased constipation and/or diarrhea. Date of Note:: 07/08/21
[2021-07-08] MEDS: sulfaSALAzine 500 MG Tablet PO ×2 (08:06→17:40)
--- NOTE | 2021-07-08 12:54 | NURSING ---
Dr Weber's office returned call stating they have no documentation of the patient's pneumo vaccinations. However, they stated they have only been the PCP since August 2018. Spoke with family in room as to who the patient seen previously or if they are aware of when pt may have received pneumo vac. Family to speak with additional family and let our staff know if pt has had pneumo vac or any previous doctors pt may have seen.
--- NOTE | 2021-07-08 13:07 | NURSING ---
Contacted [facility] patient records, left message asking about pt's pneumo vaccination record. Waiting for call back.
[2021-07-08 14:03] VITALS: BP 125/62; PULSE 86; RESP 14; TEMP 36.6; O2SAT 92
--- NOTE | 2021-07-08 14:04 | CASEMGMT ---
Social Work Met with pt for initial assessment. Pt dgt in law in the room and assisted with assessment. BIMS completed with pt score of 3/15. Pt is aware and alert but not able to answer questions appropriately. MOLST form not completed at this time. SW spoke with pt dgt on speaker phone during assessment and explained [employer] benefit and that NRD is 07/12 and continued stay is not guaranteed. Pt does lives alone and was independent until recently and pt has been requiring more assistance. Private home health aid was aquired and to start on the day pt was admitted to the hospital. Discharge disposition is dependent on pt progress in therapy. Pt dgt is looking into the possibility of additional home health aids and pt son is looking into assisted living options at [facility] and [place]. MARGARITA will continue to follow. MITCH Clark
[2021-07-08] MEDS: Tuberculin,Purif.prot.deriv. 50 TU/ML Vial 0.1 ML ID (14:26)
--- NOTE | 2021-07-08 16:34 | NURSING ---
Resident and daughter, Keiry, notified of 2 residents testing positive for COVID.
--- NOTE | 2021-07-08 16:35 | NURSING ---
Received return call from [facility], they stated they have no record of pt having a pneumo vaccination.
[2021-07-08 21:50] VITALS: PULSE 83; RESP 16; O2SAT 93
--- NOTE | 2021-07-08 22:02 | NURSING ---
Farhad wrap to left knee removed at HS. No swelling noted in joint. Patient denies any pain at this time.
[2021-07-09] MEDS: Polyethylene Glycol 3350 17 GM PACKET PO (05:25)
[2021-07-09] MEDS: Mirabegron 50 MG TAB.ER.24H PO (05:26)
[2021-07-09] MEDS: Senna/Docusate Sodium 1 Tablet PO ×2 (05:26→17:04)
[2021-07-09] MEDS: Cefdinir 300 MG Capsule PO ×2 (05:26→17:04)
[2021-07-09] MEDS: Loratadine 10 MG Tablet PO (05:26)
[2021-07-09] MEDS: Sotalol Hydrochloride 80 MG Tablet 40 MG PO ×2 (05:26→17:04)
[2021-07-09] MEDS: Levothyroxine 100 MCG Tablet 200 MCG PO (05:26)
[2021-07-09] MEDS: Raloxifene HCl 60 MG Tablet PO (05:27)
[2021-07-09 05:33] VITALS: BP 137/72; PULSE 70
[2021-07-09] MEDS: Menthol/Lanolin/Calamine/Znox 113 GM Tube 1 APPLIC TOPICAL ×3 (06:17→19:48)
[2021-07-09] MEDS: Nystatin Powder 15gm Bottle 1 APPLIC TOPICAL ×2 (06:17→19:50)
[2021-07-09] MEDS: sulfaSALAzine 500 MG Tablet PO ×2 (07:50→17:01)
--- NOTE | 2021-07-09 14:17 | CASEMGMT ---
Addendum entered by Radha Pride 07/09/21 15:09: Dtr returned phone call. Explained the below information. Dtr expressed concerns about pt not walking with therapy in all her sessions. Explained therapy evaluates the safety of the pt at each session as the pt can change day to day. Dtr expressed understanding. Offered to refer to other facilities. Emailed list of AL and SNFs. Inquired about fiances. Dtr states pt has a long-term care insurance. Explained how long-term care policies operate under reimbursement to the pt, does not usually cover 100% and typically requires a Dr qualifying them for need of services. Encouraged dtr to contact insurance company to get clear description of policy. Dtr appreciative of the information and will notify this worker of other facilities to refer to. SW to continue to follow. Original Note: Social Work Received call from [facility] inquiring about appropriateness for their AL. Explained currently pt is unable to ambulate consistently, requires max tactical cues to attempt a stand pivot transfer and scored 0/30 on SLUMS cognitive assessment. [facility] stated they would be unable to accommodate. IDT agrees memory care LTC or AL would be appropriate. Left message with dtr to discuss as insurance update is 07/12. SW to continue to follow. Radha Pride, HEAD STOCK TRANSFER CLERK KNIFE EDGER
[2021-07-09 14:27] VITALS: BP 137/61; PULSE 94; RESP 12; TEMP 37.1; O2SAT 95
[2021-07-09 19:42] VITALS: PULSE 92; RESP 14; O2SAT 94
[2021-07-10] MEDS: Polyethylene Glycol 3350 17 GM PACKET PO (04:53)
[2021-07-10] MEDS: Levothyroxine 100 MCG Tablet 200 MCG PO (04:54)
[2021-07-10] MEDS: Senna/Docusate Sodium 1 Tablet PO ×2 (04:54→17:35)
[2021-07-10] MEDS: Raloxifene HCl 60 MG Tablet PO (04:54)
[2021-07-10] MEDS: Mirabegron 50 MG TAB.ER.24H PO (04:55)
[2021-07-10] MEDS: Loratadine 10 MG Tablet PO (04:55)
[2021-07-10] MEDS: Sotalol Hydrochloride 80 MG Tablet 40 MG PO ×2 (04:55→17:34)
[2021-07-10] MEDS: Menthol/Lanolin/Calamine/Znox 113 GM Tube 1 APPLIC TOPICAL ×3 (04:56→21:58)
[2021-07-10] MEDS: Nystatin Powder 15gm Bottle 1 APPLIC TOPICAL ×2 (04:56→21:58)
[2021-07-10] MEDS: Cefdinir 300 MG Capsule PO (04:56)
[2021-07-10 05:13] VITALS: BP 136/66; PULSE 80
[2021-07-10] MEDS: sulfaSALAzine 500 MG Tablet PO ×2 (07:54→17:33)
[2021-07-10 13:56] VITALS: BP 142/71; PULSE 90; RESP 18; TEMP 36.9; O2SAT 95
--- NOTE | 2021-07-10 15:59 | NURSING ---
noted pt C&S report stated resistant to cefdinir. dr zamora updated, new order to DC.
[2021-07-11] MEDS: Levothyroxine 100 MCG Tablet 200 MCG PO (06:00)
[2021-07-11] MEDS: Raloxifene HCl 60 MG Tablet PO (06:01)
[2021-07-11] MEDS: Senna/Docusate Sodium 1 Tablet PO (06:01)
[2021-07-11] MEDS: Loratadine 10 MG Tablet PO (06:01)
[2021-07-11] MEDS: Sotalol Hydrochloride 80 MG Tablet 40 MG PO ×2 (06:02→17:59)
[2021-07-11] MEDS: Menthol/Lanolin/Calamine/Znox 113 GM Tube 1 APPLIC TOPICAL ×3 (06:02→20:47)
[2021-07-11] MEDS: Polyethylene Glycol 3350 17 GM PACKET PO (06:03)
[2021-07-11] MEDS: Nystatin Powder 15gm Bottle 1 APPLIC TOPICAL ×3 (06:03→20:46)
[2021-07-11 06:04] VITALS: BP 155/66; PULSE 71
--- NOTE | 2021-07-11 06:05 | NURSING ---
Addendum entered by Tawana Clark 07/11/21 06:05: Mirabegron XR held as medication cannot be crushed. Pt's meds are to be crushed and mixed in applesauce d/t dysphagia and poor cognition. Original Note: Moshe
[2021-07-11] MEDS: sulfaSALAzine 500 MG Tablet PO ×2 (07:50→17:59)
[2021-07-11] MEDS: Mirabegron 50 MG TAB.ER.24H PO (07:51)
[2021-07-11 09:45] VITALS: PULSE 95; RESP 16; O2SAT 96
--- NOTE | 2021-07-11 11:13 | NURSING ---
THIS NURSE AND AID STOOD PT UP TO GET HER IN RECLINER AND CHANGED ATTENDS DUE TO INCONTINENCE. PT STARTED HAVING A BM. ASKED PT IF SHE NEEDED TO SET ON TOILET PT STATED NO. ASKED PT IF SHE KNEW SHE WAS HAVING A BM,PT STATED NO. RN AWARE
[2021-07-11 15:34] VITALS: BP 139/70; PULSE 66; RESP 12; TEMP 36.8; O2SAT 95
[2021-07-11 16:01] LABS: Bacteria 0 SEEN /hpf (None Seen); Mucous, Urine 0 SEEN /hpf (<or=2+); White Blood Cells 0 SEEN /hpf (0-5)
--- NOTE | 2021-07-11 16:02 | NURSING ---
Addendum entered by Lucila Bey 07/11/21 17:29: dr richardson notified of UA negative, new order to get labs & MRI of brain, will need preauth. Original Note: pt noted with decreased mobility, was ambulating on admission to TCU but now is a SPT x2 people, having diff following directions. daughter verified that this is not her normal. dr richardson updated, new order to recheck UA C&S, pt was treated on IV ATB's on acute side of hospital & PO cefdinir while here which was resistant to ECOLI. new order to start IV cefepime 2gm daily x5 days. will monitor for reaction per Dr Richardson. pt has allergy to PCN & ertapenem but no other meds sensitive to treat.
[2021-07-11 16:26] LABS: Color, Urine Yellow (Yellow); Glucose, Dipstick Normal (Normal); Ketone-Dipstick Negative (Negative); Leukocyte Esterase-Dipstick Negative /ul (Negative); Nitrite-Dipstick Negative (Negative); Occult Blood-Urine 10 /ul (Negative); Protein-Dipstick Negative (Negative); Urine Bilirubin Dipstick Negative (Negative); Urine Clarity Clear (Clear); Urine Urobilinogen Normal (Normal)
[2021-07-11 17:11] LABS: Squamous Epithelial Cells - UA 0-5 SEEN /hpf (5-10)
[2021-07-11 17:12] LABS: Red Blood Cells-Urine 0-5 SEEN /hpf (0-5)
[2021-07-11 18:23] LABS: Absolute Lymphocyte Count 1.74 X10^3/uL (0.83-4.51); Absolute Neutrophil Count 5.7 X10^3/uL (2.0-7.7); Basophil# 0.06 X10^3/uL; Basophil% 0.7 % (0-1); Eosinophil# 0.34 X10^3/uL; Hematocrit 34.8 % (37-47); Hemoglobin 11.7 g/dL (12.0-15.0); Lymphocyte # 1.74 X10^3/ul (0.83-4.51); Lymphocyte % 20.5 % (19-41); Mean Corp Hgb Conc 33.6 g/dL (32-36); Mean Corpuscular Hgb 31.5 pg (27.0-32.0); Mean Corpuscular Volume 93.5 fL (81-99); Mean Platelet Vol. 9.7 fl (6.2-12.0); Monocyte# 0.69 X10^3/uL; Monocyte% 8.1 % (0-10); NRBC Flagged by Analyzer 0 % (0-5); Neutrophil # 5.65 X10^3/uL (2.7-7.7); Neutrophil % 66.5 % (47-70); Platelet Count 425 K/mm3 (150-450); RBC Distribution Width CV 13.1 % (11.6-14.6); RBC Distribution Width SD 44.7 fl (35.1-43.9); Red Blood Count 3.72 M/mm3 (4.2-5.4); White Blood Count 8.5 K/mm3 (4.4-11.0)
[2021-07-11 18:40] LABS: Anion Gap 5 (5-15); BUN 20 mg/dL (7-18); BUN/Creat Ratio 20.6 RATIO (10-20); Calcium,Total 9.1 mg/dL (8.5-10.1); Chloride 106 mmol/L (98-107); Creatinine, Serum 0.97 mg/dL (0.55-1.02); EST Glomerular Filtration Rate 58 mL/min (>60); Est Glom Filt Rate - Afr Amer 70 mL/min (>60); Estimated Creatinine Clearance 31.41 ml/min; Glucose 145 mg/dL (74-106); Potassium 4.3 mmol/L (3.5-5.1); Sodium Level 136 mmol/L (136-145)
[2021-07-12] MEDS: Polyethylene Glycol 3350 17 GM PACKET PO (05:34)
[2021-07-12] MEDS: Senna/Docusate Sodium 1 Tablet PO (05:35)
[2021-07-12] MEDS: Sotalol Hydrochloride 80 MG Tablet 40 MG PO (05:35)
[2021-07-12] MEDS: Levothyroxine 100 MCG Tablet 200 MCG PO (05:35)
[2021-07-12] MEDS: Mirabegron 50 MG TAB.ER.24H PO (05:36)
[2021-07-12] MEDS: 0.9% Saline Lock 10 ML Syringe IV (05:36)
[2021-07-12] MEDS: Raloxifene HCl 60 MG Tablet PO (05:36)
[2021-07-12] MEDS: Loratadine 10 MG Tablet PO (05:36)
[2021-07-12] MEDS: Menthol/Lanolin/Calamine/Znox 113 GM Tube 1 APPLIC TOPICAL (05:40)
[2021-07-12 06:09] LABS: International Normalized Ratio 2.1; Prothrombin Time (Protime)PT. 23.1 SECONDS (11.7-14.9)
[2021-07-12] MEDS: sulfaSALAzine 500 MG Tablet PO (08:53)
[2021-07-12 09:26] VITALS: PULSE 91; RESP 16; O2SAT 93
--- NOTE | 2021-07-12 13:56 | NURSING ---
Dr. Richardson updated on MRI Report and ordered pt to go to Emergency room. Family updated and at bedside.
[2021-07-12 14:42] VITALS: BP 118/75; PULSE 84; RESP 18; TEMP 36.2; O2SAT 95
--- NOTE | 2021-07-12 16:07 | NURSING ---
LEONA Lealrelay shop supervisor, calls and reports resident to be admitted to PCU at this time.
--- NOTE | 2021-07-13 22:37 | DS.PCM_ITS ---
Providers Date of Admission: 07/07/21 Primary Care Physician: Melvin Weber Reason For Visit: FT ADULT/ LEFT KNEE PAIN Diagnosis Discharge Diagnosis (1) Debility: Status: Acute Code(s): R53.81 - Other malaise (2) Left knee DJD: Status: Acute Code(s): M17.12 - Unilateral primary osteoarthritis, left knee Qualifiers: Osteoarthritis type: primary Qualified Code(s): M17.12 - Unilateral primary osteoarthritis, left knee (3) Effusion, left knee: Status: Acute Code(s): M25.462 - Effusion, left knee (4) Urinary tract infection: Status: Acute Code(s): N39.0 - Urinary tract infection, site not specified (5) Alzheimer disease: Status: Acute Code(s): G30.9 - Alzheimer's disease, unspecified; F02.80 - Dementia in other diseases classified elsewhere without behavioral disturbance (6) Hypertension: Status: Chronic Code(s): I10 - Essential (primary) hypertension (7) Osteoporosis: Status: Acute Code(s): M81.0 - Age-related osteoporosis without current pathological fracture (8) Atrial fibrillation: Status: Acute Code(s): I48.91 - Unspecified atrial fibrillation (9) Overactive bladder: Status: Acute Code(s): N32.81 - Overactive bladder (10) Allergic rhinitis: Status: Acute Code(s): J30.9 - Allergic rhinitis, unspecified (11) Hypothyroidism: Status: Acute Code(s): E03.9 - Hypothyroidism, unspecified (12) Rheumatoid arthritis: Status: Acute Code(s): M06.9 - Rheumatoid arthritis, unspecified Medications at Discharge Home Medications raloxifene 60 mg PO DAILY 06/07/17 sotalol 80 mg tablet 40 mg PO BID tab 07/06/19 warfarin 3 mg tablet 3 mg PO MOWEFRSA 07/06/19 Myrbetriq 50 mg PO DAILY 09/21/20 fexofenadine 180 mg PO DAILY 09/21/20 levothyroxine 200 mcg PO DAILY 09/21/20 warfarin 4 mg PO SUTUTH 09/21/20 acetaminophen 1,000 mg PO Q6H PRN PRN #0 tab 09/30/20 sulfasalazine [Azulfidine] 500 mg PO BID 07/05/21 melatonin 3 mg PO QHS PRN PRN #0 tab 07/07/21 menthol-zinc oxide [Calmoseptine] 1 applic TOPICAL TID 07/07/21 loratadine 10 mg PO DAILY 07/12/21 nystatin [Nystop] 1 applic TOPICAL BID 07/12/21 polyethylene glycol 3350 17 g PO DAILY 07/12/21 sennosides-docusate sodium [Stool Softener-Stimulant Laxat] 1 tab PO BID PRN PRN 07/12/21 Hospital Course Operations None Procedures None Summary of Care Provided Minutes Spent on Discharge: 15 Hospital Course: 85 year old female with below past medical history hospitalized for fall, left knee pain, left knee effusion, complicated by E. Coli urinary tract infection, admitted to TCU with debility, here for rehabilitation, strengthening, prior to disposition determination. 07/12/2021 MRI brain showed acute on chronic infarct of left basal ganglia. 07/12/2021 Discharge to [facility] Emergency Department for evaluation, admission to hospital. Weight / BMI Weight Weight: 77.7 kg Body Mass Index (BMI) 32.3 ABG / Lab / Microbiology Data Result Diagrams: 07/11/21 18:15 07/11/21 18:15 Microbiology: Microbiology 07/11/21 15:50 Urine Catheter - Catheter Urine Culture - Preliminary Presumptive E. coli 07/08/21 23:20 Nasal Secretion SARS-CoV-2 Antigen (Rapid) - Final 07/07/21 14:30 Nasal Secretion SARS-CoV-2 Antigen (Rapid) - Final D/C Instructions Weight Bearing Status: Weight bearing as tolerated Call your doctor if you observe: Fever of 101 or Higher, Inability to urinate, Inability to have a bowel movement, Shortness of breath, Dizziness, Fainting spells, Swelling in the ankles, Chest pain and Uncontrolled pain Additional Instructions: 07/12/2021 Discharge to [facility] Emergency Department for evaluation, admission to hospital. Meaningful Use Info Meaningful Use Diagnoses (Choose all that apply): None applicable Discharge Plan Admission Admit Date/Time: 07/07/21 13:40 Primary Reason for Your Visit: Debility. Attending Provider: Arnaud Richardson Chi Primary Care Provider: Melvin Weber Instructions Additional Instructions / Restrictions: 07/12/2021 Discharge to [facility] Emergency Department for evaluation, admission to hospital. Discharge Orders/Prescriptions Prescriptions: No Action warfarin [Jantoven] 3 mg tablet 3 mg PO RF: 0 sotalol 80 mg tablet 40 mg PO BID RF: 0 raloxifene 60 MG tablet 60 mg PO DAILY RF: 0 fexofenadine 180 mg Tablet 180 mg PO DAILY RF: 0 Myrbetriq 50 mg Tablet Extended Release 24 Hr 50 mg PO DAILY RF: 0 levothyroxine 200 mcg tablet 200 mcg PO DAILY RF: 0 warfarin 4 mg Tablet 4 mg PO SUTUTH RF: 0 acetaminophen 500 mg Tablet 1,000 mg PO Q6H PRN PRN (Reason: Pain Score 1-10) Qty: 0 RF: 0 sulfasalazine [Azulfidine] 500 mg tablet 500 mg PO BID RF: 0 melatonin 3 mg Tablet 3 mg PO QHS PRN PRN (Reason: Insomnia) Qty: 0 RF: 0 menthol-zinc oxide [Calmoseptine] 0.44-20.6 % ointment 1 applic topical TID RF: 0 polyethylene glycol 3350 17 gram Powder In Packet 17 g PO DAILY RF: 0 nystatin [Nystop] 100,000 unit/gram Powder 1 applic TOPICAL BID RF: 0 loratadine 10 mg Tablet 10 mg PO DAILY RF: 0 sennosides-docusate sodium [Stool Softener-Stimulant Laxat] 8.6-50 mg tablet 1 tab PO BID PRN PRN (Reason: Constipation) RF: 0 Referrals / Follow Up: Melvin Weber [Primary Care Provider] - Disposition Disposition (needs filled in before D/C Order can be placed): Acute Care Hospital
--- NOTE | 2021-07-20 13:16 | MDS.RN ---
Information for the mds was obtained from review of the clinical record, interview of resident, staff, and direct observation of resident's care.
== END 2021-07-12 20:00 | disposition short-term general hospital (02) | DRG 564 ==
PROVIDERS: Admitting Provider Family Medicine Geriatric Medicine; Visit Provider Family Medicine Geriatric Medicine
DX: M25.462 Effusion, left knee (principal); I63.81 Other cerebral infarction due to occlusion or stenosis of small artery; N39.0 Urinary tract infection, site not specified; G30.9 Alzheimer's disease, unspecified; E03.9 Hypothyroidism, unspecified; B35.4 Tinea corporis; E78.5 Hyperlipidemia, unspecified; F02.80 Dementia in other diseases classified elsewhere, unspecified severity, without behavioral disturbance, psychotic disturbance, mood disturbance, and anxiety; I48.0 Paroxysmal atrial fibrillation; M06.9 Rheumatoid arthritis, unspecified; B96.20 Unspecified Escherichia coli [E. coli] as the cause of diseases classified elsewhere; I10 Essential (primary) hypertension; M17.12 Unilateral primary osteoarthritis, left knee; N32.81 Overactive bladder; Z79.01 Long term (current) use of anticoagulants; Z79.810 Long term (current) use of selective estrogen receptor modulators (SERMs); Z79.899 Other long term (current) drug therapy; Z86.718 Personal history of other venous thrombosis and embolism
CPT/HCPCS: 36415; 80048; 81001; 85025; 85610; 87086; 87088; 87186; 87426; 92523; 92610; 97110; 97116; 97162; 97166; 97530; 97535; A4216

== ENCOUNTER 2021-07-12 10:40 | Outpatient (CLI) | payer MEDICARE, SELFPAY ==
--- NOTE | 2021-07-12 10:42 | MRI_ITS ---
EXAM: MR HEAD WITHOUT INTRAVENOUS CONTRAST : 1935 CLINICAL INDICATION: CVA, decreased LOC TECHNIQUE: Multiplanar and multisequence MR images of the brain were obtained without intravenous contrast. This report was created using [employer] report generation technology. COMPARISON: CT brain July 05, 2021 FINDINGS: BRAIN AND EXTRA-AXIAL SPACES: 2 cm focus of restricted diffusion within the left basal ganglion consistent with acute infarct. Lesion appears superimposed on old 12 mm lacunar infarct. Multiple foci of increased T2 signal intensity within the cerebral white matter consistent with chronic microvascular disease. No intra- or extra-axial hemorrhage. No intracranial mass or significant mass effect. Posterior fossa structures are unremarkable. Ventricles are appropriate for age. No hydrocephalus. Basal cisterns are patent. SELLA: Unremarkable. Normal sella turcica, pituitary gland, infundibular stalk, optic chiasm and hypothalamus. AUDITORY SYSTEM: Unremarkable. The internal auditory canals are patent. BONES/JOINTS: Unremarkable. No discrete lytic or blastic abnormalities. SINUSES: Unremarkable as visualized. Clear. MASTOID AIR CELLS: Unremarkable as visualized. Clear. ORBITS: Unremarkable as visualized. Both globes, extraocular muscles, optic nerves and retrobulbar fat appear unremarkable. VASCULATURE: Unremarkable as visualized. Normal flow voids in the major intracranial circulation. MRI/Brain without Contrast IMPRESSION: 1. Acute and chronic lacunar infarction of the left basal ganglia. 2. Chronic microvascular changes. at 1137 Reported and signed by: Emiliano Su MD Electronically Signed: Emiliano Su MD at 11:36 EST ,
== END 2021-07-12 23:59 | disposition home or self-care (01) ==
PROVIDERS: Visit Provider Family Medicine Geriatric Medicine
DX: Z86.73 Personal history of transient ischemic attack (TIA), and cerebral infarction without residual deficits (principal)
CPT/HCPCS: 70551

== ENCOUNTER 2021-07-12 14:01 | Inpatient (IN) | payer MEDICARE, SELFPAY ==
[2021-07-12] VITALS (8 sets, daily range): BP systolic 125–156; BP diastolic 72–92; PULSE 80–103; RESP 14–22; TEMP 36.1–37.1; O2SAT 94–97; BMI 32.3; BMI 32.2
--- NOTE | 2021-07-12 14:20 | EKG12_ITS ---
Test Reason : NEURO S\SX Blood Pressure : / mmHG Vent. Rate : 083 BPM Atrial Rate : 083 BPM P-R Int : 192 ms QRS Dur : 070 ms QT Int : 364 ms P-R-T Axes : 081 022 138 degrees QTc Int : 427 ms Normal sinus rhythm Low voltage QRS Nonspecific T wave abnormality Abnormal ECG Confirmed by SELINA LEYVA, NANDA ([id number]), purchase request editor MARCUS REYNOSO ([id number]) on 07/15/2021 1:25:41 PM Referred By: BRIAN Confirmed By:NANDA MARKS MD
--- NOTE | 2021-07-12 14:21 | ED.VIS.STROK ---
HPI History of Present Illness Chief Complaint: Mental Status Change Detail of Chief Complaint: Patient was sent from TCU for altered mental status. Informant: family and other Onset/Context/Timing Onset: - (Onset is unknown please read HPI) Context: - (Unknown) Timing: Continuous Current Severity: Mild Maximum Severity: Mild Worsened by: Unknown Relieved by: Unknown Associated Symptoms Associated Symptoms: Positive for - (Patient denies any symptoms) Narrative Narrative: Patient is an 86-year-old woman who was diagnosed with urinary tract infection and prescribed Macrobid. Apparently antibiotic was changed because of the culture and sensitivity. On Monday, February 01 she had a fall injuring her knee. Family did not think much of it. On the when she was experienced severe pain her eyes rolled back and she was unresponsive. There was no motor activity. Patient did not have a postictal state. Patient was admitted for resistant urinary tract infection and altered mental status. She subsequently was transitioned to the TCU. She has had change in mental status for some time. Family member that is present in the room states they noted a difference in May. Patient did have a CT of the head on Monday, July 05 which was unremarkable. Presumption was that her encephalopathy was due to urinary tract infection. Presently patient knows her name. She does not know location or time. furthermore, she has no complaints Prior similar symptoms: Yes Recent Illness/Hospitalization: Yes [facility] Medical History Dementia DVT (deep venous thrombosis) History of blood clots Hyperlipidemia Hypertension Hypothyroidism Paroxysmal atrial fibrillation Rheumatoid arthritis Home Medications raloxifene 60 mg PO DAILY 06/07/17 [History Last Taken 07/05/21] sotalol 80 mg tablet 40 mg PO BID tab 07/06/19 [History Last Taken 07/05/21] warfarin 3 mg tablet 3 mg PO MOWEFRSA 07/06/19 [History Last Taken 07/05/21] Myrbetriq 50 mg PO DAILY 09/21/20 [History Last Taken 07/04/21] fexofenadine 180 mg PO DAILY 09/21/20 [History Last Taken 07/04/21] levothyroxine 200 mcg PO DAILY 09/21/20 [History Last Taken 07/05/21] warfarin 4 mg PO SUTUTH 09/21/20 [History Last Taken 07/04/21] acetaminophen 1,000 mg PO Q6H PRN PRN #0 tab 09/30/20 [Rx Last Taken 07/05/21] sulfasalazine [Azulfidine] 500 mg PO BID 07/05/21 [History Last Taken 07/05/21] cefdinir 300 mg PO Q12 07/07/21 [History Last Taken Unknown] melatonin 3 mg PO QHS PRN PRN #0 tab 07/07/21 [Rx Last Taken Unknown] menthol-zinc oxide [Calmoseptine] 1 applic TOPICAL TID 07/07/21 [History Last Taken Unknown] sennosides-docusate sodium [Stool Softener-Stimulant Laxat] 2 tab PO BID PRN PRN #0 tab 07/07/21 [Rx Last Taken Unknown] Allergy/AdvReac Type Severity Reaction Status Date / Time ertapenem [From Invanz] Allergy Rash Verified 07/05/21 17:12 Penicillins Allergy Unknown Verified 09/21/20 12:58 Family History Father CVA (cerebral vascular accident) Mother Cancer Breast. Surgical History H/O discectomy History of appendectomy History of embolic filter insertion S/P insertion of IVC (inferior vena caval) filter Status post right knee replacement Social History household members: none Smoking Status: Never smoker alcohol intake: never substance use type: does not use ROS ROS ED Review of Systems ROS Unobtainable: due to encephalopathy, due to mental status and other Details: Patient answered no to all questions and admits she does not know why she is here EXAM Physical Exam Const Vital Signs: 07/12/21 14:02 07/12/21 14:50 07/12/21 15:35 Temperature 97.0 F L Temperature Source Temporal Pulse Rate 88 88 Respiratory Rate 14 21 H Blood Pressure 125/73 H Blood Pressure Mean 90 Pulse Ox 97 94 Oxygen Delivery Method Room Air Room Air Room Air Positive well nourished, well developed and obese General Appearance ED: well developed and NAD Nutritional Appearance: obese HEENT Reports TM's clear and moist mucous membranes atraumatic Nose: other Other Details: Nares patent. Ears normal. Tympanic Membrane ED: Yes TM's clear Eyes EOMs intact bilaterally Eyes Narrative: No subconjunctival hemorrhage. There is no nystagmus. General Eye ED: Negative for pale conjunctiva or scleral icterus Neck no lymphadenopathy, supple and no JVD General: Negative for tenderness Chest Wall inspection of chest normal and palpation of chest normal Resp normal respiratory effort and clear to auscultation bilaterally Cardio no murmurs Rate: regular rate Rhythm: regular rhythm Heart Sounds: S1 normal and S2 normal GI normal to inspection, nondistended, normoactive bowel sounds, soft to palpation, non-tender and non-distended Back/Spine no CVA tenderness Cervical Spine: Negative for cervical spine tenderness Thoracic Spine / Upper Back: Negative for thoracic spinal tenderness Lumbar Spine / Lower Back: Negative for lumbar spinal tenderness Extremity normal to inspection General Extremety ED: Negative for deformity, edema or tenderness General Extremity: Negative for deformity or edema Neuro No oriented x3 and CN's II-XII intact bilaterally Nely Coma Scale: document GCS findings Spontaneous Obeys Commands Confused 14 Sensorium / Orientation: oriented to person, orientation impaired and confused; Negative for alert, oriented to place, oriented to time or lethargic Speech: speech normal Psych mental status grossly normal Skin Lesions: no lesions Rashes: no rashes STROKE Vital Signs/Narrative: Vital Signs Temp Pulse Resp BP Pulse Ox 07/12/21 15:35 88 21 H 94 07/12/21 14:02 97.0 F L 88 14 125/73 H 97 NIHSS Initial: 1a Level of Consciousness: 1 1b LOC Questions (Score 2 if aphasic/stupor): 1 1c LOC Commands (Only score 1st attempt): 2 2 Best Gaze (If aphasic, use reflexive mvmts.): 0 4 Facial Palsy: 0 5 Motor Arm Right (UN = amputation/fusion): UN (Patient will not cooperate. When I pulled the home the cover she moved both arms to pull up the cover.) 5 Motor Arm Left: UN (Same response as documented for right upper arm) 6 Motor Leg Right: UN (Patient will not cooperate she does withdrawal to painful stimuli) 6 Motor Leg Left: UN (Patient will not cooperate she does withdrawal to painful stimuli) 7 Limb ataxia (Only + if out of proportion): UN (Will not cooperate) 8 Sensory (Aphasia/stupor=0 or 1, coma=2): 0 9 Best Language: 1 10 Dysarthria (mute, coma=2, intubated=UN): 0 11 Extinction and Inattention (only scored if +): 0 Total Score: 5 MDM MDM MDM Narrative Medical decision making narrative: Patient with significantly altered mental status and expressive aphasia. MRI that was performed at 1042 this morning reveals an acute on chronic left basal ganglion stroke. Since onset is not known and patient had an MRI which is accurate for stroke and rules out bleed no further imaging was initiated. Stroke order set was used and the every 30 minute neuro checks and imaging portion of the order set were canceled. Lab Data Attestation: I reviewed the patient's lab results. Lab results narrative: CBC and differential unremarkable. Coags are unremarkable. Basic metabolic panel is unremarkable. Troponin is unremarkable. Labs: Laboratory Results - last 24 hr 07/12/21 07/12/21 07/12/21 14:50 14:50 14:50 WBC 8.0 RBC 3.71 L Hgb 11.7 L Hct 34.9 L MCV 94.1 MCH 31.5 MCHC 33.5 RDW Std Deviation 45.2 H RDW Coeff of Jackie 13.2 Plt Count 431 MPV 10.0 Immature Gran % (Auto) 0.400 Neut % (Auto) 62.8 Lymph % (Auto) 20.6 [place] % (Auto) 10.8 H Eos % (Auto) 4.6 Baso % (Auto) 0.8 Absolute Neuts (auto) 5.0 Absolute Lymphs (auto) 1.64 Nucleated RBC % 0 PT 23.5 H INR 2.2 APTT 44.1 H Sodium 136 Potassium 4.8 Chloride 104 Carbon Dioxide 27.0 Anion Gap 5 BUN 21 H Creatinine 0.98 Estim Creat Clear Calc 31.09 Est GFR (MDRD) Af Amer 69 Est GFR (MDRD) Non-Af 57 L BUN/Creatinine Ratio 21.5 H Glucose 100 Calcium 8.8 Troponin I High Sens 6 EKG Initial EKG: Attestation: I personally reviewed and interpreted this EKG as follows: Interpretation: Sinus Rhythm (Ventricular is 83. OK interval is 190 ms per cures duration 70 ms. QT duration 3 and 64 ms. [place] is normal. There is nonspecific ST-T wave changes noted which may be artifact.) Stroke Documentation Questions Stroke Team Activated: No Reviewed Inclusion/Exclusion criteria: No Was Patient considered for Endovascular Intervention?: No IV Alteplase (t-PA) Administered: No No contraindications for IV Alteplase (t-PA) administration.: No Alteplase (t-PA) risks, benefits, alternative discussed: No Discharge Plan Dx/Rx/DC Orders Clinical Impression: Infarction of left basal ganglia, Encephalopathy acute Disposition Disposition: Acute Care Hospital [facility]
[2021-07-12 15:14] LABS: Absolute Lymphocyte Count 1.64 X10^3/uL (0.83-4.51); Basophil# 0.06 X10^3/uL; Basophil% 0.8 % (0-1); Eosinophil# 0.37 X10^3/uL; Eosinophils% 4.6 % (0-5); Hematocrit 34.9 % (37-47); Hemoglobin 11.7 g/dL (12.0-15.0); Lymphocyte # 1.64 X10^3/ul (0.83-4.51); Lymphocyte % 20.6 % (19-41); Mean Corp Hgb Conc 33.5 g/dL (32-36); Mean Corpuscular Hgb 31.5 pg (27.0-32.0); Mean Corpuscular Volume 94.1 fL (81-99); Monocyte# 0.86 X10^3/uL; Monocyte% 10.8 % (0-10); NRBC Flagged by Analyzer 0 % (0-5); Neutrophil # 5.02 X10^3/uL (2.7-7.7); Neutrophil % 62.8 % (47-70); Platelet Count 431 K/mm3 (150-450); RBC Distribution Width CV 13.2 % (11.6-14.6); RBC Distribution Width SD 45.2 fl (35.1-43.9); Red Blood Count 3.71 M/mm3 (4.2-5.4)
[2021-07-12 15:40] LABS: Anion Gap 5 (5-15); BUN 21 mg/dL (7-18); BUN/Creat Ratio 21.5 RATIO (10-20); Calcium,Total 8.8 mg/dL (8.5-10.1); Chloride 104 mmol/L (98-107); Creatinine, Serum 0.98 mg/dL (0.55-1.02); EST Glomerular Filtration Rate 57 mL/min (>60); Est Glom Filt Rate - Afr Amer 69 mL/min (>60); Estimated Creatinine Clearance 31.09 ml/min; Glucose 100 mg/dL (74-106); Potassium 4.8 mmol/L (3.5-5.1); Sodium Level 136 mmol/L (136-145); Troponin-I HS 6 pg/mL (3.0-54.0)
[2021-07-12 15:41] LABS: International Normalized Ratio 2.2; Prothrombin Time (Protime)PT. 23.5 SECONDS (11.7-14.9)
[2021-07-12 15:42] LABS: Partial Thromboplast Time 44.1 Seconds (24.1-36.2)
--- NOTE | 2021-07-12 16:19 | HP.PCM.HOS_ITS ---
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 Patient has had a decline overall since May. Patient was recently admitted and then discharged on the with progressive debility, left knee effusion. Patient had presented after a fall on the . Patient was discharged to the transitional care unit on . Patient, according to her daughter, was doing fairly well and using a walker but when the daughter came in the , noted that the patient instead of using a walker was in a wheelchair. That was a concern and brought up to the attention of the physician there and an MRI was ordered. The MRI showed an acute as well as chronic CVA of the left basal ganglia. Patient was then sent to the emergency room for evaluation. Daughter notes that the patient does have some confusion at baseline as she does have dementia but had been pretty functional no would require being checked on by family periodically. But daught er notes that the patient is having more difficulty searching for words and when she was made to read the statements on NIH score sheet she was having some garbled speech. [facility] Medical History Dementia DVT (deep venous thrombosis) History of blood clots Hyperlipidemia Hypertension Hypothyroidism Paroxysmal atrial fibrillation Rheumatoid arthritis Home Medications raloxifene 60 mg PO DAILY 06/07/17 [History Last Taken 07/05/21] sotalol 80 mg tablet 40 mg PO BID tab 07/06/19 [History Last Taken 07/05/21] warfarin 3 mg tablet 3 mg PO MOWEFRSA 07/06/19 [History Last Taken 07/05/21] Myrbetriq 50 mg PO DAILY 09/21/20 [History Last Taken 07/04/21] fexofenadine 180 mg PO DAILY 09/21/20 [History Last Taken 07/04/21] levothyroxine 200 mcg PO DAILY 09/21/20 [History Last Taken 07/05/21] warfarin 4 mg PO SUTUTH 09/21/20 [History Last Taken 07/04/21] acetaminophen 1,000 mg PO Q6H PRN PRN #0 tab 09/30/20 [Rx Last Taken 07/05/21] sulfasalazine [Azulfidine] 500 mg PO BID 07/05/21 [History Last Taken 07/05/21] melatonin 3 mg PO QHS PRN PRN #0 tab 07/07/21 [Rx Last Taken Unknown] menthol-zinc oxide [Calmoseptine] 1 applic TOPICAL TID 07/07/21 [History Last Taken Unknown] loratadine 10 mg PO DAILY 07/12/21 [History Last Taken 07/12/21 05:36] nystatin [Nystop] 1 applic TOPICAL BID 07/12/21 [History Last Taken 07/11/21 20:46] polyethylene glycol 3350 17 g PO DAILY 07/12/21 [History Last Taken 07/12/21 05:34] sennosides-docusate sodium [Stool Softener-Stimulant Laxat] 1 tab PO BID PRN PRN 07/12/21 [History Last Taken 07/12/21 05:35] Allergy/AdvReac Type Severity Reaction Status Date / Time ertapenem [From Invanz] Allergy Rash Verified 07/05/21 17:12 Penicillins Allergy Unknown Verified 09/21/20 12:58 Family History Father CVA (cerebral vascular accident) Mother Cancer Breast. Surgical History H/O discectomy History of appendectomy History of embolic filter insertion S/P insertion of IVC (inferior vena caval) filter Status post right knee replacement Social History household members: none Smoking Status: Never smoker alcohol intake: never substance use type: does not use ROS Review of Systems ROS Unobtainable: due to encephalopathy Vital Signs Vital Signs Vital Signs: 07/12/21 14:02 07/12/21 14:50 07/12/21 15:35 Temperature 36.1 C L Temperature Source Temporal Pulse Rate 88 88 Respiratory Rate 14 21 H Blood Pressure 125/73 H Blood Pressure Mean 90 Pulse Ox 97 94 Oxygen Delivery Method Room Air Room Air Room Air 07/12/21 16:04 Temperature 37.1 C Temperature Source Temporal Pulse Rate 82 Respiratory Rate 22 H Blood Pressure 125/77 H Blood Pressure Mean 93 Pulse Ox 95 Oxygen Delivery Method Room Air Weight Weight: 77.7 kg Body Mass Index (BMI) 32.3 Physical Exam Const Constitutional Narrative: Awake. Pleasant. Follows most commands. Oriented to self only. HEENT normocephalic and head/scalp atraumatic Eyes PERRL Neck no lymphadenopathy Resp normal respiratory effort, no retractions, no use of accessory muscles and clear to auscultation bilaterally Cardio regular rate, S1 normal heart sound and S2 normal heart sound GI normal to inspection, nondistended, normoactive bowel sounds, soft to palpation, non-tender, non-distended and hepatosplenomegaly Extremity normal to inspection Extremity Narrative: Nonpitting edema lower extremities Skin no rashes or lesions noted and no wounds Neuro Neuro Narrative: Muscling 5-5 in upper and lower extremities bilaterally. Had difficulty following [id number] instructions. Sensorium / Orientation: alert Results Lab / Micro Data Attestation: I reviewed the patient's lab results. Result Diagrams: 07/12/21 14:50 07/12/21 14:50 Labs: Laboratory Results - last 24 hr 07/12/21 14:50: WBC 8.0, RBC 3.71 L, Hgb 11.7 L, Hct 34.9 L, MCV 94.1, MCH 31.5, MCHC 33.5, RDW Std Deviation 45.2 H, RDW Coeff of Jackie 13.2, Plt Count 431, MPV 10.0, Immature Gran % (Auto) 0.400, Neut % (Auto) 62.8, Lymph % (Auto) 20.6, [place] % (Auto) 10.8 H, Eos % (Auto) 4.6, Baso % (Auto) 0.8, Absolute Neuts (auto) 5.0, Absolute Lymphs (auto) 1.64, Nucleated RBC % 0 07/12/21 14:50: PT 23.5 H, INR 2.2, APTT 44.1 H 07/12/21 14:50: Sodium 136, Potassium 4.8, Chloride 104, Carbon Dioxide 27.0, Anion Gap 5, BUN 21 H, Creatinine 0.98, Estim Creat Clear Calc 31.09, Est GFR (MDRD) Af Amer 69, Est GFR (MDRD) Non-Af 57 L, BUN/Creatinine Ratio 21.5 H, Glucose 100, Calcium 8.8, Troponin I High Sens 6 Assessment & Plan Assessment/Plan (1) Infarction of left basal ganglia: PLAN: 1. Acute CVA Left basal ganglia Patient already anticoagulated on warfarin Patient already had MRI of the brain that showed the results as above. Check MRA of the head and neck, 2D echocardiogram and therapy evaluations. After that is all been completed, then would recommend consulting SOC telemetry neurology for further recommendations. 2. Debility Will have PT OT evaluate the patient. Patient came from the transitional care unit anticipate patient will return there when she is medically stable 3. Dementia complicates care and recovery 4. Afib fully anticoagulated with warfarin continue sotalol 5. VTE prophylaxis: not indicated as she is anticoagulated 6. Code Status: Full per pt's dtr 7. COVID-19 vaccination status: Patient has been vaccinated and boosted. Charges/Coding Visit Charges Inpatient E&M: 20257 Init Hosp L3
--- NOTE | 2021-07-12 17:01 | MRI_ITS ---
STUDY: MRA OF THE HEAD WITHOUT CONTRAST REASON FOR EXAM: Female, 86 years old. CVA- increased confusion TECHNIQUE: 3-D arrf-fz-[id number] (TOF) imaging was performed with MIPs. The study was performed unenhanced. COMPARISON: None. FINDINGS: Normal bilateral petrous carotid arteries. Normal right cavernous carotid artery with a normal supraclinoid bifurcation. Normal left cavernous carotid artery with a normal supraclinoid bifurcation. Normal right A1 segments of the anterior cerebral artery. Normal left A1 segments of the anterior cerebral artery. Normal intact anterior communicating artery (ACOM). Normal bilateral A2 segments of the anterior cerebral arteries. Normal right M1 and M2 segments of the middle cerebral arteries, with a normal M1 bifurcation. Normal left M1 and M2 segments of the middle cerebral arteries, with a normal M1 bifurcation. Posterior communicating arteries are not visualized consistent with normal variant Normal bilateral vertebral arteries. Normal basilar artery with a normal basilar bifurcation. The visualized bilateral superior cerebellar (SCA) arteries are normal. Normal bilateral P1, P2 and visualized P3 segments of the posterior cerebral arteries. There is no demonstrated aneurysm of the [place]. There is no major vessel occlusion or hemodynamically significant stenosis. There is no demonstrated abnormality of the visualized brain. MRI/MRA Head ONLY without Contrast IMPRESSION: Normal MRA of the head Electronically Signed: Ras Wooten MD at 20:52 EST ,
--- NOTE | 2021-07-12 17:01 | MRI_ITS ---
STUDY: MRA NECK WITHOUT CONTRAST REASON FOR EXAM: Female, 86 years old. CVA- increased confusion TECHNIQUE: Source images were obtained, MIPs were performed. The study was performed unenhanced. COMPARISON: None. FINDINGS: RIGHT CAROTID ARTERIES: Normal right common carotid artery (CCA). Normal right common carotid bulb. Normal origin of the right internal carotid (ICA) artery without a hemodynamically significant stenosis. Normal visualized cervical portion of the right internal carotid artery. Normal origin of the right external carotid artery (ECA). LEFT CAROTID ARTERIES: Normal left common carotid artery (CCA). Normal left common carotid bulb. Normal origin of the left internal carotid (ICA) artery without a hemodynamically significant stenosis. Normal visualized cervical portion of the left internal carotid artery. Normal origin of the left external carotid artery (ECA). VERTEBRAL ARTERIES: Normal antegrade flow within the bilateral vertebral artery without a hemodynamically significant stenosis. MRI/MRA Neck without Contrast IMPRESSION: Normal bilateral cervical carotid and vertebral arteries. Electronically Signed: Ras Wooten MD at 20:53 EST ,
--- NOTE | 2021-07-12 17:01 | ECHOD_ITS ---
Reason For Study: TIA/CVA Procedure This was a 2D Doppler, Color Flow transthoracic echocardiogram. The study was technically difficult. Exam performed portable in patient room. Left Ventricle Normal LV size. Left ventricular systolic function is normal. The estimated ejection fraction is 60 %. No regional wall motion abnormalities noted. Right Ventricle Normal RV size. Normal systolic function. Atria Normal left atrium. Normal right atrium. Patent foramen ovale. Mitral Valve There is mild to moderate mitral annular calcification. Mild (1+) eccentric mitral valve insufficiency. Tricuspid Valve Normal tricuspid valve. Aortic Valve Normal aortic valve. Trisinus/trileaflet aortic valve. Pulmonic Valve Normal pulmonic valve. Great Vessels Normal aortic root. The pulmonary artery is normal size. Normal inferior vena cava. Pericardium/Pleural No pericardial effusion. Medication Performed a rapid injection of agitated mix of 9 cc saline and 1cc air to assess for atrial septal defect. MMode/2D Measurements & Calculations LVIDd: 4.0 cm IVSd: 1.0 cm Ao root diam: 3.3 cm LVIDs: 2.6 cm LVPWd: 1.0 cm RVDd: 3.0 cm FS: 34.5 % LAV(MOD-bp): 46.4 ml LVAd ap2: 19.4 cm2 SV(MOD-sp2): 29.4 ml LAV(MOD-bp) Indexed: 26.3 ml/m2 LVLd ap2: 6.6 cm LAV(MOD-sp2): 43.4 ml EDV(MOD-sp2): 48.3 ml LAV(MOD-sp4): 45.1 ml EDV(sp2-el): 48.6 ml LVAs ap2: 10.8 cm2 LVLs ap2: 5.6 cm ESV(MOD-sp2): 18.9 ml ESV(sp2-el): 17.7 ml EF(MOD-sp2): 60.9 % LA A4 area: 17.1 cm2 LA dimension(2D): 3.6 cm RA A4 area: 11.0 cm2 Time Measurements MV dec time: 0.28 sec Doppler Measurements & Calculations MV E max christopher: 55.5 cm/sec Lat Peak E' Christopher: 9.9 cm/sec Med Peak E' Christopher: 5.1 cm/sec MV A max christopher: 69.5 cm/sec E/E' lat: 5.6 E/E' med: 10.9 MV E/A: 0.80 Ao V2 max: 99.2 cm/sec LV V1 max: 95.7 cm/sec PA V2 max: 87.0 cm/sec Ao max P.9 mmHg LV V1 max P.7 mmHg ECHO/Echo Complete Interpretation Summary Normal LV size. Left ventricular systolic function is normal. The estimated ejection fraction is 60 %. Patent foramen ovale. There is mild to moderate mitral annular calcification. Mild (1+) eccentric mitral valve insufficiency. Ordering Physician: Armen Gamble Performed By: Kayla Hermosillo RDCS
[2021-07-12 17:04] LABS: Troponin-I HS 8 pg/mL (3.0-54.0)
[2021-07-12] MEDS: Cefdinir 300 MG Capsule PO (21:20)
[2021-07-12] MEDS: Sotalol Hydrochloride 80 MG Tablet 40 MG PO (21:20)
[2021-07-12] MEDS: Menthol/Lanolin/Calamine/Znox 113 GM Tube 1 APPLIC TOPICAL (21:22)
[2021-07-13] VITALS (12 sets, daily range): BP systolic 108–155; BP diastolic 60–92; PULSE 63–96; RESP 16–18; TEMP 36.8–37.7; O2SAT 91–95; BMI 32.2
[2021-07-13 07:33] LABS: Cholesterol 172 mg/dL (200); High Density Lipoprotein 31 mg/dL; Triglycerides 140 mg/dL; Very Low Density Lipoprotein 28 mg/dL (5-40)
[2021-07-13] MEDS: Cefdinir 300 MG Capsule PO ×2 (08:35→21:01)
[2021-07-13] MEDS: Loratadine 10 MG Tablet PO (08:35)
[2021-07-13] MEDS: Mirabegron 50 MG TAB.ER.24H PO (08:36)
[2021-07-13] MEDS: Sotalol Hydrochloride 80 MG Tablet 40 MG PO ×2 (08:36→21:00)
[2021-07-13] MEDS: Raloxifene HCl 60 MG Tablet PO (08:36)
[2021-07-13] MEDS: sulfaSALAzine 500 MG Tablet PO ×2 (08:36→17:25)
--- NOTE | 2021-07-13 10:43 | TELEMED_ITS ---
SOC Telemed has confirmed receipt of a request for visit. This document confirms receipt of the order initiating the consult. To find the results of the consultation, please view the patient's reports for the scanned Telemed Consult.
--- NOTE | 2021-07-13 11:49 | CASEMGMT ---
TCU is unable to take patient back due to her needing correction placement. SW met with patient's daughter, Keiry introduced self and role at [facility]. SW asked where she would like patient to go at discharge. Keiry said she would prefer patient return to TCU. SW explained that TCU is not able to take patient back as patient needs correction care. Keiry said patient's son went and looked at [place] and [place]. Keiry does want patient to get rehab at discharge. At that time tele neurology appeared so SW stepped out of the room. Jesica Landaverde STAFF NURSE MIDWIFE ANGELA
--- NOTE | 2021-07-13 12:16 | PN.HOSP_ITS ---
Subjective Subjective Follow-up on acute stroke: Patient was seen and examined. Daughter was in the room at her bedside. She denied any new complaints. She is alert oriented only to self but not to place or time. She has been refusing to do her NIHSS. Her vitals has remained stable. Objective Data Objective Data Vital Signs: Vital Signs Temp Pulse Resp BP Pulse Ox 98.4 F 78 16 121/60 H 94 07/13/21 11:45 07/13/21 11:45 07/13/21 11:45 07/13/21 11:45 07/13/21 11:45 Oxygen Delivery Method Room Air Weight: 77.4 kg Body Mass Index (BMI) 32.2 Intake & Output: Intake and Output for Last 24 Hours 07/11/21 07/12/21 07/13/21 23:59 23:59 23:59 Intake Total 450 / 450 290 / 290 Output Total 200 / 200 Balance 450 / 450 90 / 90 Lab / Micro Data Result Diagrams: 07/12/21 14:50 07/12/21 14:50 Labs: Laboratory Results - last 24 hr 07/12/21 14:50: WBC 8.0, RBC 3.71 L, Hgb 11.7 L, Hct 34.9 L, MCV 94.1, MCH 31.5, MCHC 33.5, RDW Std Deviation 45.2 H, RDW Coeff of Jackie 13.2, Plt Count 431, MPV 10.0, Immature Gran % (Auto) 0.400, Neut % (Auto) 62.8, Lymph % (Auto) 20.6, [place] % (Auto) 10.8 H, Eos % (Auto) 4.6, Baso % (Auto) 0.8, Absolute Neuts (auto) 5.0, Absolute Lymphs (auto) 1.64, Nucleated RBC % 0 07/12/21 14:50: PT 23.5 H, INR 2.2, APTT 44.1 H 07/12/21 14:50: Sodium 136, Potassium 4.8, Chloride 104, Carbon Dioxide 27.0, An ion Gap 5, BUN 21 H, Creatinine 0.98, Estim Creat Clear Calc 31.09, Est GFR ( MDRD) Af Amer 69, Est GFR (MDRD) Non-Af 57 L, BUN/Creatinine Ratio 21.5 H, Glucose 100, Calcium 8.8, Troponin I High Sens 6 07/12/21 16:26: Troponin I High Sens 8 07/13/21 06:20: Triglycerides 140, Cholesterol 172, LDL Cholesterol 113, VLDL Cholesterol 28, HDL Cholesterol 31 L Radiography Diagnostic Testing: Radiology Impression Head MRA 07/12/21 17:01 IMPRESSION: Normal MRA of the head Electronically Signed: Ras Wooten MD at 20:52 EST Reading Location ID and State: [facility] / [place] , Service support , Neck MRA 07/12/21 17:01 IMPRESSION: Normal bilateral cervical carotid and vertebral arteries. Electronically Signed: Ras Wooten MD at 20:53 EST , Physical Exam Narrative Physical exam: General: Alert, Oriented to self not to place or time, Cooperative, No apparent distress, well developed HEENT: Atraumatic Oral: Moist Mucosa Neck: Supple Lungs: Diminished to auscultation Cardiovascular: HS I+II, regular, no murmurs Abdomen: Bowel Sounds Present, Soft, Non Tender, no palpable organs Extremities: No edema Const Constitutional Narrative: Awake. Pleasant. Follows most commands. Oriented to self only. HEENT normocephalic and head/scalp atraumatic Eyes PERRL Neck no lymphadenopathy Resp normal respiratory effort, no retractions, no use of accessory muscles and clear to auscultation bilaterally Cardio regular rate, S1 normal heart sound and S2 normal heart sound GI normal to inspection, nondistended, normoactive bowel sounds, soft to palpation, non-tender, non-distended and hepatosplenomegaly Extremity normal to inspection Extremity Narrative: Nonpitting edema lower extremities Skin no rashes or lesions noted and no wounds Neuro Neuro Narrative: Muscling 5-5 in upper and lower extremities bilaterally. Had difficulty following [id number] instructions. Sensorium / Orientation: alert Assessment & Plan Assessment/Plan (1) Infarction of left basal ganglia: PLAN: 1. Acute Left base ganglia CVA, in a patient with known history of A. fib Unclear if this is secondary to warfarin failure MRA of the head and neck is unremarkable 2D echo is pending, total cholesterol is 172, triglycerides 142, LDL is 113, HDL 31 INR is 2.2, HgbA1c is pending PT/OT/ST to evaluate and treat SOC consult 2. Chronic atrial fibrillation, rheumatoid arthritis, history of DVT status post IVC filter INR is 2.2, continue on Coumadin, repeat INR in a.m. 3. Dementia, complicates care and recovery 4. Rest of her chronic medical condition including hypothyroid ism/hyperlipidemia/hypertension remained stable 5. DVT prophylaxis?on Coumadin; INR is therapeutic 6. Code Status: Full code Charges/Coding Visit Charges Inpatient E&M: 63045 Subs Hosp L2
--- NOTE | 2021-07-13 12:20 | CHAPLAIN ---
Type of Pastoral Visit _x__ Initial Visit ___ Follow-up Visit ___ On-call Visit ___ General Patient Visit ___ Spiritual Assessment ___ Family Conference ___ Bereavement ___ Rapid Response ___ Code Blue ___ Other (describe below) Pastoral Care Referral From ___ Patient _x__ Family ___ Nurse ___ Physician ___ Rehabilitation Services Counselor ___ Walking Dragline Operator ___ Other (describe below) Sacrament/Intervention ___ Active listening ___ Anointing ___ Restorationist ___ Bereavement ___ Communion ___ Misty exploration ___ ___ Life review _x__ Prayer ___ Reconciliation ___ Sacrament of Sick _x__ Supportive presence ___ Wedding ___ Other (describe below) Pastoral Comments patient has been seen before in various locations in the hospital during this admission time; pt is able to speak and answer questions in simple words or phrases; daughter is present and also encourages her mother/patient to speak; pt does not complain or speak of any needs; pt and daughter do welcome prayer support; daughter said your prayer is what we needed because there are decisions to be made
--- NOTE | 2021-07-13 12:26 | CASEMGMT ---
SW spoke with patient's daughter Keiry again. MARGARITA provided Keiry with a list of SNF providers including quality and resource use data and consistent with the patient?s preferred geographic region, medical needs, and insurance network. Keiry told MARGARITA to check with [facility] and [facility]. SW will send referrals to both facilities. Jesica MILLER
[2021-07-13 13:20] LABS: Hemoglobin A1c 5.5 % (3.8-5.6)
[2021-07-13] MEDS: Menthol/Lanolin/Calamine/Znox 113 GM Tube 1 APPLIC TOPICAL (13:21)
[2021-07-13 13:23] LABS: Thyroid Stim Hormone (TSH) 3.04 uIU/mL (0.358-3.74)
[2021-07-13 13:46] LABS: Vitamin B12 257 pg/mL (211-911)
[2021-07-13] MEDS: 0.9% Saline Lock 10 ML Syringe IV (14:57)
--- NOTE | 2021-07-13 15:16 | CASEMGMT ---
Referral faxed to [facility]. Await response. Jesica Landaverde SENIOR CLINICAL DATA ANALYST TRANSPORTATION DESIGN ENGINEER
[2021-07-13] MEDS: Atorvastatin Calcium 40 MG Tablet PO (21:01)
[2021-07-14] VITALS (9 sets, daily range): BP systolic 120–132; BP diastolic 53–65; PULSE 65–101; RESP 16; TEMP 36.6–37.8; O2SAT 92–96; BMI 32.2
[2021-07-14] MEDS: Menthol/Lanolin/Calamine/Znox 113 GM Tube 1 APPLIC TOPICAL ×4 (00:13→21:24)
[2021-07-14 06:16] LABS: Absolute Lymphocyte Count 2.21 X10^3/uL (0.83-4.51); Basophil# 0.04 X10^3/uL; Basophil% 0.5 % (0-1); Eosinophils% 6.6 % (0-5); Hematocrit 33.3 % (37-47); Hemoglobin 11.1 g/dL (12.0-15.0); Lymphocyte # 2.21 X10^3/ul (0.83-4.51); Lymphocyte % 29.2 % (19-41); Mean Corp Hgb Conc 33.3 g/dL (32-36); Mean Corpuscular Hgb 31.2 pg (27.0-32.0); Mean Corpuscular Volume 93.5 fL (81-99); Mean Platelet Vol. 10.1 fl (6.2-12.0); Monocyte# 0.83 X10^3/uL; NRBC Flagged by Analyzer 0 % (0-5); Neutrophil # 3.96 X10^3/uL (2.7-7.7); Neutrophil % 52.4 % (47-70); Platelet Count 419 K/mm3 (150-450); RBC Distribution Width CV 13.1 % (11.6-14.6); RBC Distribution Width SD 45.5 fl (35.1-43.9); Red Blood Count 3.56 M/mm3 (4.2-5.4); White Blood Count 7.6 K/mm3 (4.4-11.0)
[2021-07-14] MEDS: Levothyroxine 100 MCG Tablet 200 MCG PO (06:22)
[2021-07-14 06:25] LABS: International Normalized Ratio 2.2; Prothrombin Time (Protime)PT. 23.6 SECONDS (11.7-14.9)
[2021-07-14 06:44] LABS: ALB/GLOB Ratio 0.7 RATIO (0.9-2.4); AST(SGOT) 15 U/L (15-37); Alanine Aminotransfer ALT/SGPT 10 U/L (13-56); Albumin, Serum 2.5 g/dL (3.2-5.0); Alkaline Phosphatase 61 U/L (45-117); Anion Gap 3 (5-15); BUN 23 mg/dL (7-18); Chloride 108 mmol/L (98-107); Creatinine, Serum 0.92 mg/dL (0.55-1.02); EST Glomerular Filtration Rate 62 mL/min (>60); Est Glom Filt Rate - Afr Amer 75 mL/min (>60); Estimated Creatinine Clearance 33.12 ml/min; Globulin 3.6 g/dL (2.2-4.2); Glucose 94 mg/dL (74-106); Potassium 4.4 mmol/L (3.5-5.1); Protein, Total 6.1 g/dL (6.4-8.2); Sodium Level 139 mmol/L (136-145)
--- NOTE | 2021-07-14 08:25 | CASEMGMT ---
MARGARITA received a voice mail from Augusto at [facility] and they can accept patient. MARGARITA called Augusto and asked her to please start the pre-cert. MARGARITA spoke with patient and her daughter. MARGARITA let them know that [facility] can accept her. MARGARITA explained patient will stay in the hospital until the insurance gives approval. Plan: d/c to [facility] under skilled level of care pending insurance approval. Jesica MILLER
[2021-07-14] MEDS: Sotalol Hydrochloride 80 MG Tablet 40 MG PO ×2 (09:02→21:21)
[2021-07-14] MEDS: Cefdinir 300 MG Capsule PO ×2 (09:02→21:21)
[2021-07-14] MEDS: Raloxifene HCl 60 MG Tablet PO (09:02)
[2021-07-14] MEDS: sulfaSALAzine 500 MG Tablet PO ×2 (09:02→16:50)
[2021-07-14] MEDS: Mirabegron 50 MG TAB.ER.24H PO (09:02)
[2021-07-14] MEDS: Polyethylene Glycol 3350 17 GM PACKET PO (09:02)
[2021-07-14] MEDS: Loratadine 10 MG Tablet PO (09:02)
--- NOTE | 2021-07-14 13:01 | PCM.PN.HOSP ---
Subjective Subjective Follow-up on acute stroke: Patient was seen and examined. She has a left-sided neglect. She is more interactive today. No acute no acute events overnight. 2D echo shows EF of 60%, PFO present. INR is 2.2 Objective Data Objective Data Vital Signs: Vital Signs Temp Pulse Resp BP Pulse Ox 98.7 F 72 16 132/63 H 96 07/14/21 08:59 07/14/21 08:59 07/14/21 08:59 07/14/21 08:59 07/14/21 08:59 Oxygen Delivery Method Room Air Weight: 77.4 kg Body Mass Index (BMI) 32.2 Intake & Output: Intake and Output for Last 24 Hours 07/12/21 07/13/21 07/14/21 23:59 23:59 23:59 Intake Total 450 / 450 650 / 650 240 / 240 Output Total 550 / 670 620 / 620 Balance 450 / 450 100 / -20 -380 / -380 Lab / Micro Data Result Diagrams: 07/14/21 05:20 07/14/21 05:20 Labs: Laboratory Results - last 24 hr 07/13/21 06:20: TSH 3.04 07/13/21 06:20: Hemoglobin A1c 5.5 07/13/21 13:05: Vitamin B12 257 07/13/21 13:05: Ammonia 11.0 07/14/21 05:20: WBC 7.6, RBC 3.56 L, Hgb 11.1 L, Hct 33.3 L, MCV 93.5, MCH 31.2, MCHC 33.3, RDW Std Deviation 45.5 H, RDW Coeff of Jackie 13.1, Plt Count 419, MPV 10.1, Immature Gran % (Auto) 0.300, Neut % (Auto) 52.4, Lymph % (Auto) 29.2, [place] % (Auto) 11.0 H, Eos % (Auto) 6.6 H, Baso % (Auto) 0.5, Absolute Neuts (auto) 4.0, Absolute Lymphs (auto) 2.21, Nucleated RBC % 0 07/14/21 05:20: PT 23.6 H, INR 2.2 07/14/21 05:20: Sodium 139, Potassium 4.4, Chloride 108 H, Carbon Dioxide 28.0, Anion Gap 3 L, BUN 23 H, Creatinine 0.92, Estim Creat Clear Calc 33.12, Est GFR (MDRD) Af Amer 75, Est GFR (MDRD) Non-Af 62, BUN/Creatinine Ratio 25.0 H, Glucose 94, Calcium 9.0, Total Bilirubin 0.30, AST 15, ALT 10 L, Alkaline Phosphatase 61, Total Protein 6.1 L, Albumin 2.5 L, Globulin 3.6, Albumin/Globulin Ratio 0.7 L Radiography Diagnostic Testing: Radiology Impression Echocardiogram 07/12/21 17:01 Interpretation Summary Normal LV size. Left ventricular systolic function is normal. The estimated ejection fraction is 60 %. Patent foramen ovale. There is mild to moderate mitral annular calcification. Mild (1+) eccentric mitral valve insufficiency. Ordering Physician: Armen Gamble Performed By: Kayla Hermosillo RDCS Physical Exam Narrative Physical exam: General: Alert, Oriented to self not to place or time, Cooperative, appears frail HEENT: Atraumatic Oral: Moist Mucosa Neck: Supple Lungs: Diminished to auscultation Cardiovascular: HS I+II, regular, no murmurs Abdomen: Bowel Sounds Present, Soft, Non Tender, no palpable organs Extremities: No edema GERICARE AIDE: Power is 5/5 in the right side of the body, 4/5 in the left side, normal tone, left-sided neglect Assessment & Plan Assessment/Plan (1) Infarction of left basal ganglia: PLAN: 1. Acute Left base ganglia CVA, in a patient with known history of A. fib MRA of the head and neck is unremarkable 2D echo shows PFO, EF of 60%, total cholesterol is 172, triglycerides 142, LDL is 113, HDL 31 INR is 2.2, HgbA1c is 5.5 Telemetry shows normal sinus rhythm PT/OT/ST to evaluate and treat TSH, vitamin B12, ammonia is normal We will check Doppler ultrasound lower extremity even though patient's INR is therapeutic at 2.2 2. Chronic atrial fibrillation, , rheumatoid arthritis, history of DVT status post IVC filter INR is 2.2, continue on Coumadin, repeat INR in a.m. 3. Dementia, complicates care and recovery 4. Rest of her chronic medical condition including hypothyroidism/hyperlipidemia/hypertension remained stable 5. DVT prophylaxis?on Coumadin; INR is therapeutic 6. Code Status: Full code Charges/Coding Visit Charges Inpatient E&M: 76035 Subs Hosp L2
--- NOTE | 2021-07-14 13:44 | VDLE_ITS ---
Reason For Study: SOB RIGHT LEFT GSV is normal. GSV is normal. CFV is compressible, spontaneous, phasic, CFV is compressible, spontaneous, phasic, competent and demonstrates normal competent, and demonstrates normal augmentation. augmentation. FV is compressible, spontaneous, phasic, PTV is compressible. competent and demonstrates normal LT PerV is compressible. augmentation. FV is noncompressible with decreased flow. POP V is compressible, spontaneous, phasic, Pop V is noncompressible with decreased flow. competent and demonstrates normal T/P Trunk is noncompressible. augmentation. T/P Trunk is compressible. PTV is compressible. RT PerV is compressible. Procedure This is a venous duplex using B-mode, color flow and spectral Doppler. Exam performed portable in patient room. The exam was diagnostic. A preliminary report was called and/or faxed to the pt's RN. VL/Venous Duplex US - Satish Extrem Interpretation Summary There is no evidence of right lower extremity deep vein thrombosis. Acute deep venous thrombosis left femoral, popliteal, tibioperoneal trunk Patent and compressible bilateral great saphenous veins Current findings not previously identified September 22, 2020 Ordering Physician: Staci Johnston Performed By: Sagar English RVT
[2021-07-14] MEDS: Atorvastatin Calcium 40 MG Tablet PO (21:21)
[2021-07-15 02:13] VITALS: BP 105/58; PULSE 86; RESP 16; TEMP 36.8; O2SAT 92
[2021-07-15 03:00] VITALS: PULSE 87
[2021-07-15 04:17] VITALS: BMI 32.2
[2021-07-15 05:45] LABS: Absolute Lymphocyte Count 2.28 X10^3/uL (0.83-4.51); Absolute Neutrophil Count 4.6 X10^3/uL (2.0-7.7); Basophil# 0.05 X10^3/uL; Basophil% 0.6 % (0-1); Eosinophil# 0.51 X10^3/uL; Eosinophils% 6.2 % (0-5); Hemoglobin 11.1 g/dL (12.0-15.0); Lymphocyte # 2.28 X10^3/ul (0.83-4.51); Lymphocyte % 27.8 % (19-41); Mean Corp Hgb Conc 33.6 g/dL (32-36); Mean Corpuscular Hgb 31.3 pg (27.0-32.0); Mean Platelet Vol. 10.1 fl (6.2-12.0); Monocyte# 0.71 X10^3/uL; Monocyte% 8.7 % (0-10); NRBC Flagged by Analyzer 0 % (0-5); Neutrophil # 4.63 X10^3/uL (2.7-7.7); Neutrophil % 56.6 % (47-70); Platelet Count 439 K/mm3 (150-450); RBC Distribution Width CV 13.2 % (11.6-14.6); RBC Distribution Width SD 45.5 fl (35.1-43.9); Red Blood Count 3.55 M/mm3 (4.2-5.4); White Blood Count 8.2 K/mm3 (4.4-11.0)
[2021-07-15 05:57] LABS: International Normalized Ratio 2.2; Prothrombin Time (Protime)PT. 23.3 SECONDS (11.7-14.9)
[2021-07-15] MEDS: Menthol/Lanolin/Calamine/Znox 113 GM Tube 1 APPLIC TOPICAL ×2 (06:15→13:39)
[2021-07-15] MEDS: Levothyroxine 100 MCG Tablet 200 MCG PO (06:15)
[2021-07-15 06:18] LABS: ALB/GLOB Ratio 0.7 RATIO (0.9-2.4); AST(SGOT) 12 U/L (15-37); Alanine Aminotransfer ALT/SGPT 11 U/L (13-56); Albumin, Serum 2.7 g/dL (3.2-5.0); Alkaline Phosphatase 63 U/L (45-117); Anion Gap 5 (5-15); BUN 31 mg/dL (7-18); BUN/Creat Ratio 30.4 RATIO (10-20); Calcium,Total 8.7 mg/dL (8.5-10.1); Chloride 107 mmol/L (98-107); Creatinine, Serum 1.02 mg/dL (0.55-1.02); EST Glomerular Filtration Rate 55 mL/min (>60); Est Glom Filt Rate - Afr Amer 66 mL/min (>60); Estimated Creatinine Clearance 29.87 ml/min; Globulin 3.7 g/dL (2.2-4.2); Glucose 100 mg/dL (74-106); Potassium 4.3 mmol/L (3.5-5.1); Protein, Total 6.4 g/dL (6.4-8.2); Sodium Level 139 mmol/L (136-145)
[2021-07-15 06:56] VITALS: PULSE 75
[2021-07-15 07:50] VITALS: O2SAT 92
[2021-07-15 08:53] VITALS: BP 123/59; PULSE 67; RESP 16; TEMP 36.7; O2SAT 94
[2021-07-15] MEDS: Raloxifene HCl 60 MG Tablet PO (08:57)
[2021-07-15] MEDS: Loratadine 10 MG Tablet PO (08:57)
[2021-07-15] MEDS: Sotalol Hydrochloride 80 MG Tablet 40 MG PO (08:57)
[2021-07-15] MEDS: sulfaSALAzine 500 MG Tablet PO (08:57)
[2021-07-15] MEDS: Cefdinir 300 MG Capsule PO (08:57)
[2021-07-15] MEDS: Polyethylene Glycol 3350 17 GM PACKET PO (08:57)
[2021-07-15] MEDS: Mirabegron 50 MG TAB.ER.24H PO (08:58)
--- NOTE | 2021-07-15 10:55 | CASEMGMT ---
MARGARITA received a phone call from Augusto at [facility] and patient was approved. MARGARITA let Augusto know patient will come today. MARGARITA notified physician. MARGARITA also notified patient and her daughter. Await orders. Jesica MILLER
--- NOTE | 2021-07-15 14:00 | PCM.TXEXTCAR ---
Diet 07/12/21 17:26 Diet: Cardiac - Heart Healthy Is pt able to select menu?: Yes Routine Orders/Code Status Keep PO Greater than or Equal to (%): 94 Routine Lab Work: CBC (within 3 days) and BMP (within 3 days) Code Status: Full Code Therapies Weight Bearing: Weight bearing as tolerated Extremity Affected:: Bilateral Lower Physical Therapy: Eval and Treat Occupational Therapy: Eval and Treat Speech Therapy: Eval and Treat Problem/Diagnosis (1) Infarction of left basal ganglia: Status: Acute Allergies/Procedures Done in Hospital Allergies ertapenem [From Invanz] Allergy (Verified 07/05/21 17:12) Rash Penicillins Allergy (Verified 09/21/20 12:58) Unknown Procedures: 2-D Echocardiogram Type of Care/Length of Stay Estimated LOS: Convalescent Care Less Than 30 days Type of Care Needed: Skilled Rehab Potential: Fair Prognosis: Fair Additional Orders/Day of Discharge Day of Discharge: 07/15/21 Dietary and Speech Recommendations Dietitian Recommendations/Changes: Continue cardiac diet as PO established; liberalize diet to regular as needed to optimize oral intake at meals. Will change ensure compact to 120ml ensure enlive 4 times per day w/ medpass due to availability. Adjust ONS as needed. Speech Linguistic Eval Summary: Per RNTierra, the patient has slow response time and does best with yes/no questions to meet her needs. She is presenting with increased difficulty with word retrieval per pt's daughter. The patient has a history of dementia. 07/08/[address] in ST evaluation to assess cognition, scoring 0/30 on SLUMS. Orientation: Pt oriented to self, month and date. Reoriented the patient to city, place, year, and current year. Auditory comprehension: Yes/no questions - 7/10 acc. Following 1-step commands - 3/8 acc. Verbal expression: Patient responded mostly in 1-3 word utterances requiring extended time for formulate response. Confrontation naming - 0%, patient stated I don't know for each item she was tasked to name. The patient has baseline dementia. Per daughter's report, patient is having increased difficulty with word retrieval. Will recommend the patient for cognitive-linguistic therapy to address increased difficulty word finding. Discharge Plan Admission Admit Date/Time: 07/12/21 16:12 Primary Reason for Your Visit: Acute CVA Attending Provider: Staci Johnston Primary Care Provider: Melvin Weber Discharge Orders/Prescriptions Prescriptions: New Eliquis 5 mg Tablet See Taper mg PO BID Qty: 0 RF: 0 atorvastatin 40 mg Tablet 40 mg PO QHS Qty: 0 RF: 0 Ensure Enlive 0.08 gram-1.5 kcal/mL Liquid 120 ml PO 4X/DAY Qty: 0 RF: 0 Continued sotalol 80 mg tablet 40 mg PO BID RF: 0 raloxifene 60 MG tablet 60 mg PO DAILY RF: 0 fexofenadine 180 mg Tablet 180 mg PO DAILY RF: 0 Myrbetriq 50 mg Tablet Extended Release 24 Hr 50 mg PO DAILY RF: 0 levothyroxine 200 mcg tablet 200 mcg PO DAILY RF: 0 acetaminophen 500 mg Tablet 1,000 mg PO Q6H PRN PRN (Reason: Pain Score 1-10) Qty: 0 RF: 0 sulfasalazine [Azulfidine] 500 mg tablet 500 mg PO BID RF: 0 melatonin 3 mg Tablet 3 mg PO QHS PRN PRN (Reason: Insomnia) Qty: 0 RF: 0 menthol-zinc oxide [Calmoseptine] 0.44-20.6 % ointment 1 applic topical TID RF: 0 polyethylene glycol 3350 17 gram Powder In Packet 17 g PO DAILY RF: 0 nystatin [Nystop] 100,000 unit/gram Powder 1 applic TOPICAL BID RF: 0 sennosides-docusate sodium [Stool Softener-Stimulant Laxat] 8.6-50 mg tablet 1 tab PO BID PRN PRN (Reason: Constipation) RF: 0 Discontinued warfarin [Jantoven] 3 mg tablet 3 mg PO MOWEFRSA RF: 0 warfarin 4 mg Tablet 4 mg PO SUTUTH RF: 0 loratadine 10 mg Tablet 10 mg PO DAILY RF: 0 Referrals / Follow Up: Melvin Weber [Primary Care Provider] - Within 2 Weeks Disposition Disposition (needs filled in before D/C Order can be placed): [facility]
--- NOTE | 2021-07-15 14:03 | PCM.DC.SUM ---
Providers Date of Admission: 07/12/21 Date of Discharge: 07/15/21 Primary Care Physician: Melvin Weber Reason For Visit: CVA Diagnosis Discharge Diagnosis (1) Infarction of left basal ganglia: Status: Acute Code(s): I63.9 - Cerebral infarction, unspecified (2) Hypertension: Status: Chronic Code(s): I10 - Essential (primary) hypertension Qualifiers: Hypertension type: unspecified Qualified Code(s): I10 - Essential (primary) hypertension (3) Hyperlipidemia: Status: Chronic Code(s): E78.5 - Hyperlipidemia, unspecified Qualifiers: Hyperlipidemia type: unspecified Qualified Code(s): E78.5 - Hyperlipidemia, unspecified (4) Hypothyroidism: Status: Chronic Code(s): E03.9 - Hypothyroidism, unspecified Qualifiers: Hypothyroidism type: unspecified Qualified Code(s): E03.9 - Hypothyroidism, unspecified (5) Paroxysmal atrial fibrillation: Status: Chronic Code(s): I48.0 - Paroxysmal atrial fibrillation (6) Deep vein thrombosis: Status: Acute Code(s): I82.409 - Acute embolism and thrombosis of unspecified deep veins of unspecified lower extremity Qualifiers: Affected thrombotic vein of extremity: femoral Chronicity: acute DVT location: lower extremity Laterality: left Qualified Code(s): I82.412 - Acute embolism and thrombosis of left femoral vein (7) Atrial fibrillation: Status: Chronic Code(s): I48.91 - Unspecified atrial fibrillation Qualifiers: Atrial fibrillation type: unspecified chronic Qualified Code(s): I48.20 - Chronic atrial fibrillation, unspecified (8) Debility: Status: Acute Code(s): R53.81 - Other malaise Medications at Discharge Home Medications raloxifene 60 mg PO DAILY 06/07/17 sotalol 80 mg tablet 40 mg PO BID tab 07/06/19 Myrbetriq 50 mg PO DAILY 09/21/20 fexofenadine 180 mg PO DAILY 09/21/20 levothyroxine 200 mcg PO DAILY 09/21/20 acetaminophen 1,000 mg PO Q6H PRN PRN #0 tab 09/30/20 sulfasalazine [Azulfidine] 500 mg PO BID 07/05/21 melatonin 3 mg PO QHS PRN PRN #0 tab 07/07/21 menthol-zinc oxide [Calmoseptine] 1 applic TOPICAL TID 07/07/21 nystatin [Nystop] 1 applic TOPICAL BID 07/12/21 polyethylene glycol 3350 17 g PO DAILY 07/12/21 sennosides-docusate sodium [Stool Softener-Stimulant Laxat] 1 tab PO BID PRN PRN 07/12/21 apixaban [Eliquis] See Taper PO BID #0 tab 07/15/21 atorvastatin 40 mg PO QHS #0 tab 07/15/21 food supplemt, lactose-reduced [Ensure Enlive] 120 ml PO 4X/DAY #0 ml 07/15/21 Hospital Course Operations None Procedures 2-D Echocardiogram Summary of Care Provided Minutes Spent on Discharge: 40 Hospital Course: 86-year-old female past medical history of dementia, hypertension, hypothyroidism who was recently discharged to the TCU with left knee effusion after a fall. Patient daughter reported that patient was progressively weak and required use of wheelchair. She was using a walker 2 days prior to. She was also found to be confused. Patient had an MRI done that showed acute on chronic left basilar ganglia CVA. Patient had garbled speech and difficulty searching for words. She was admitted to the hospital for acute stroke work-up. Patient was not a TPA candidate. MRA of the head and neck was unremarkable. 2D echo showed a small PFO. Lipid profile showed triglyceride 140, total cholesterol 172, LDL 113, HDL 31. SOC was consulted. Recommended EEG. EEG could not be done because admission was poor. TSH was 3.04, B12 was 257. Doppler ultrasound of lower extremities revealed acute extensive left femoral, popliteal and tibioperoneal DVT. Patient was managed on warfarin throughout his hospital stay. Her INR was therapeutic. This is Coumadin failure. Discussed with her family, agreed to Eliquis. Patient was switched to Eliquis. Patient was seen by PT and OT and skilled for discharge to detention facility. Physical Exam Narrative Physical exam: General: Alert, Oriented to self not to place or time, Cooperative, appears frail HEENT: Atraumatic Oral: Moist Mucosa Neck: Supple Lungs: Diminished to auscultation Cardiovascular: HS I+II, regular, no murmurs Abdomen: Bowel Sounds Present, Soft, Non Tender, no palpable organs Extremities: No edema ELECTROENCEPHALOGRAPH TECHNICIAN: Power is 5/5 in the right side of the body, 4/5 in the left side, normal tone, left-sided neglect Weight / BMI Weight Weight: 77.4 kg Body Mass Index (BMI) 32.2 ABG / Lab / Microbiology Data Result Diagrams: 07/15/21 05:04 07/15/21 05:04 Laboratory: Laboratory Results - last 24 hr 07/15/21 05:04: WBC 8.2, RBC 3.55 L, Hgb 11.1 L, Hct 33.0 L, MCV 93.0, MCH 31.3, MCHC 33.6, RDW Std Deviation 45.5 H, RDW Coeff of Jackie 13.2, Plt Count 439, MPV 10.1, Immature Gran % (Auto) 0.100, Neut % (Auto) 56.6, Lymph % (Auto) 27.8, [place] % (Auto) 8.7, Eos % (Auto) 6.2 H, Baso % (Auto) 0.6, Absolute Neuts (auto) 4.6, Absolute Lymphs (auto) 2.28, Nucleated RBC % 0 07/15/21 05:04: PT 23.3 H, INR 2.2 07/15/21 05:04: Sodium 139, Potassium 4.3, Chloride 107, Carbon Dioxide 27.0, Anion Gap 5, BUN 31 H, Creatinine 1.02, Estim Creat Clear Calc 29.87, Est GFR (MDRD) Af Amer 66, Est GFR (MDRD) Non-Af 55 L, BUN/Creatinine Ratio 30.4 H, Glucose 100, Calcium 8.7, Total Bilirubin 0.40, AST 12 L, ALT 11 L, Alkaline Phosphatase 63, Total Protein 6.4, Albumin 2.7 L, Globulin 3.7, Albumin/Globulin Ratio 0.7 L Microbiology: Microbiology 07/13/21 15:00 Blood Culture (Wb) - Anticubital Left Blood Culture - Preliminary No growth in 48 hours. 07/13/21 13:05 Blood Culture (Wb) - Left Wrist Blood Culture - Preliminary No growth in 48 hours. 07/15/21 11:20 Nasal Secretion SARS-CoV-2 Antigen (Rapid) - Final Radiography Diagnostic Testing: Radiology Impression Venous Doppler Study 07/14/21 13:44 Interpretation Summary There is no evidence of right lower extremity deep vein thrombosis. Acute deep venous thrombosis left femoral, popliteal, tibioperoneal trunk Patent and compressible bilateral great saphenous veins Current findings not previously identified September 22, 2020 Ordering Physician: Staci Johnston Performed By: Sagar English RVT D/C Instructions Discharge Diet: Low fat / Low cholesterol and 2000 mg Sodium Diet Meaningful Use Info Meaningful Use Diagnoses (Choose all that apply): Ischemic CVA and VTE CVA Therapy Assessed for PT,OT and/or ST?: Yes Ischemic Stroke Antithrombotic order at d/c?: Yes Dx of Atrial fib/flutter?: Yes Anticoagulant at discharge?: Yes Statins at discharge?: Yes Primary Dx Acute Ischemic CVA?: Yes IV tPA ordered during stay?: No Reason IV t-PA not ordered: Treatment not Indicated VTE Anticoag overlap given w/in hospital stay or rx'd at dc?: Yes Pt receive overlap for 5 days?: No Reason overlap not ordered, prescribed, or given for 5 days: Treatment Not Indicated Discharge Plan Admission Admit Date/Time: 07/12/21 16:12 Primary Reason for Your Visit: Acute CVA Attending Provider: Staci Johnston Primary Care Provider: Melvin Weber Discharge Orders/Prescriptions Prescriptions: New Eliquis 5 mg Tablet See Taper mg PO BID Qty: 0 RF: 0 atorvastatin 40 mg Tablet 40 mg PO QHS Qty: 0 RF: 0 Ensure Enlive 0.08 gram-1.5 kcal/mL Liquid 120 ml PO 4X/DAY Qty: 0 RF: 0 Continued sotalol 80 mg tablet 40 mg PO BID RF: 0 raloxifene 60 MG tablet 60 mg PO DAILY RF: 0 fexofenadine 180 mg Tablet 180 mg PO DAILY RF: 0 Myrbetriq 50 mg Tablet Extended Release 24 Hr 50 mg PO DAILY RF: 0 levothyroxine 200 mcg tablet 200 mcg PO DAILY RF: 0 acetaminophen 500 mg Tablet 1,000 mg PO Q6H PRN PRN (Reason: Pain Score 1-10) Qty: 0 RF: 0 sulfasalazine [Azulfidine] 500 mg tablet 500 mg PO BID RF: 0 melatonin 3 mg Tablet 3 mg PO QHS PRN PRN (Reason: Insomnia) Qty: 0 RF: 0 menthol-zinc oxide [Calmoseptine] 0.44-20.6 % ointment 1 applic topical TID RF: 0 polyethylene glycol 3350 17 gram Powder In Packet 17 g PO DAILY RF: 0 nystatin [Nystop] 100,000 unit/gram Powder 1 applic TOPICAL BID RF: 0 sennosides-docusate sodium [Stool Softener-Stimulant Laxat] 8.6-50 mg tablet 1 tab PO BID PRN PRN (Reason: Constipation) RF: 0 Discontinued warfarin [Jantoven] 3 mg tablet 3 mg PO MOWEFR RF: 0 warfarin 4 mg Tablet 4 mg PO SUTUTH RF: 0 loratadine 10 mg Tablet 10 mg PO DAILY RF: 0 Referrals / Follow Up: Melvin Weber [Primary Care Provider] - Within 2 Weeks Disposition Disposition (needs filled in before D/C Order can be placed): [facility] Facility Charges/Coding Visit Charges Inpatient E&M: 02923 Disch Hosp
[2021-07-15 14:30] VITALS: BP 115/70; PULSE 95; RESP 18; TEMP 36.6; O2SAT 94
--- NOTE | 2021-07-15 14:47 | CASEMGMT ---
MARGARITA received orders. MARGARITA arranged for patient to get picked up at 4p via cot. MARGARITA faxed orders, negative COVID, and orange picker time to [facility]. MARGARITA notified RN, corporation secretary, patient's daughter, full charge bookkeeper, and Augusto at [facility]. MARGARITA completed a 7000 on HENS. All in agreement with d/c plan. Plan: d/c to [facility] under skilled level of care on a convalescent stay. [facility] transported via cot. Jesica MILLER
--- NOTE | 2021-07-15 14:51 | CASEMGMT ---
SW did not complete a PHQ 9 with patient as she is confused. Jesica Landaverde AUTOCAD TECHNICIAN ANGELA
== END 2021-07-15 18:36 | disposition skilled nursing facility (03) | DRG 65 ==
LOC: ED 15:59 → PCU 17:35
PROVIDERS: Emergency Provider Emergency Medicine; Visit Provider Internal Medicine
DX: I63.50 Cerebral infarction due to unspecified occlusion or stenosis of unspecified cerebral artery (principal); I82.412 Acute embolism and thrombosis of left femoral vein; I82.442 Acute embolism and thrombosis of left tibial vein; I82.432 Acute embolism and thrombosis of left popliteal vein; I82.452 Acute embolism and thrombosis of left peroneal vein; F03.90 Unspecified dementia, unspecified severity, without behavioral disturbance, psychotic disturbance, mood disturbance, and anxiety; I48.0 Paroxysmal atrial fibrillation; E03.9 Hypothyroidism, unspecified; R47.01 Aphasia; M06.9 Rheumatoid arthritis, unspecified; E78.5 Hyperlipidemia, unspecified; I10 Essential (primary) hypertension; R53.81 Other malaise; R29.705 NIHSS score 5; R29.708 NIHSS score 8; Z79.01 Long term (current) use of anticoagulants; Z79.899 Other long term (current) drug therapy; Z86.73 Personal history of transient ischemic attack (TIA), and cerebral infarction without residual deficits; Z86.718 Personal history of other venous thrombosis and embolism
CPT/HCPCS: 36415; 70544; 70547; 70551; 80048; 80053; 80061; 82140; 82607; 83036; 84443; 84484; 85025; 85610; 85730; 87040; 87426; 92507; 92523; 92610; 93005; 93306; 93970; 94762; 97110; 97116; 97162; 97166; 97530; 97535; 97802; 99284; A4216

== ENCOUNTER → 2021-07-16 | Outpatient (REF) | payer SELFPAY ==
[2021-07-16 06:33] LABS: Hematocrit 32.6 % (37-47); Hemoglobin 10.7 g/dL (12.0-15.0); Mean Corp Hgb Conc 32.8 g/dL (32-36); Mean Corpuscular Hgb 31.1 pg (27.0-32.0); Mean Corpuscular Volume 94.8 fL (81-99); Mean Platelet Vol. 10.3 fl (6.2-12.0); Platelet Count 411 K/mm3 (150-450); RBC Distribution Width CV 13.3 % (11.6-14.6); Red Blood Count 3.44 M/mm3 (4.2-5.4); White Blood Count 7.6 K/mm3 (4.4-11.0)
[2021-07-16 06:43] LABS: Anion Gap 3 (5-15); BUN 29 mg/dL (7-18); BUN/Creat Ratio 29.4 RATIO (10-20); Calcium,Total 8.7 mg/dL (8.5-10.1); Chloride 107 mmol/L (98-107); Creatinine, Serum 0.99 mg/dL (0.55-1.02); EST Glomerular Filtration Rate 57 mL/min (>60); Est Glom Filt Rate - Afr Amer 69 mL/min (>60); Glucose 97 mg/dL (74-106); Potassium 4.4 mmol/L (3.5-5.1); Sodium Level 138 mmol/L (136-145)
== END | disposition home or self-care (01) ==
LOC: OLS.SW300 04:00
PROVIDERS: Visit Provider Internal Medicine
DX: I63.9 Cerebral infarction, unspecified (principal)
CPT/HCPCS: 36415; 80048; 85027

== ENCOUNTER → 2021-07-19 | Outpatient (REF) | payer SELFPAY ==
[2021-07-19 08:44] LABS: Absolute Lymphocyte Count 1.95 X10^3/uL (0.83-4.51); Absolute Neutrophil Count 5.1 X10^3/uL (2.0-7.7); Basophil# 0.06 X10^3/uL; Basophil% 0.7 % (0-1); Eosinophil# 0.43 X10^3/uL; Eosinophils% 5.1 % (0-5); Hematocrit 33.6 % (37-47); Hemoglobin 11.1 g/dL (12.0-15.0); Lymphocyte # 1.95 X10^3/ul (0.83-4.51); Mean Corpuscular Hgb 31.4 pg (27.0-32.0); Mean Corpuscular Volume 95.2 fL (81-99); Mean Platelet Vol. 10.5 fl (6.2-12.0); Monocyte# 0.89 X10^3/uL; Monocyte% 10.5 % (0-10); NRBC Flagged by Analyzer 0 % (0-5); Neutrophil # 5.12 X10^3/uL (2.7-7.7); Neutrophil % 60.5 % (47-70); Platelet Count 453 K/mm3 (150-450); RBC Distribution Width CV 13.4 % (11.6-14.6); RBC Distribution Width SD 46.6 fl (35.1-43.9); Red Blood Count 3.53 M/mm3 (4.2-5.4); White Blood Count 8.5 K/mm3 (4.4-11.0)
[2021-07-19 08:59] LABS: Hemoglobin A1c 5.6 % (3.8-5.6)
[2021-07-19 09:06] LABS: Anion Gap 4 (5-15); BUN 31 mg/dL (7-18); BUN/Creat Ratio 31.5 RATIO (10-20); Calcium,Total 8.7 mg/dL (8.5-10.1); Chloride 109 mmol/L (98-107); Cholesterol 131 mg/dL (200); Creatinine, Serum 0.98 mg/dL (0.55-1.02); EST Glomerular Filtration Rate 57 mL/min (>60); Est Glom Filt Rate - Afr Amer 69 mL/min (>60); Glucose 101 mg/dL (74-106); High Density Lipoprotein 34 mg/dL; Magnesium 2.4 mg/dL (1.6-2.6); Sodium Level 142 mmol/L (136-145); Thyroid Stim Hormone (TSH) 1.68 uIU/mL (0.358-3.74); Triglycerides 88 mg/dL; Very Low Density Lipoprotein 18 mg/dL (5-40)
== END | disposition home or self-care (01) ==
LOC: OLS.SW300 04:00
PROVIDERS: Referring Provider Internal Medicine; Visit Provider Internal Medicine
DX: I10 Essential (primary) hypertension (principal); I63.9 Cerebral infarction, unspecified; E78.5 Hyperlipidemia, unspecified; E03.9 Hypothyroidism, unspecified
CPT/HCPCS: 36415; 80048; 80061; 83036; 83735; 84443; 85025

== ENCOUNTER → 2021-07-26 | Outpatient (REF) | payer SELFPAY ==
[2021-07-26 07:59] LABS: Absolute Lymphocyte Count 1.87 X10^3/uL (0.83-4.51); Absolute Neutrophil Count 4.7 X10^3/uL (2.0-7.7); Basophil# 0.04 X10^3/uL; Basophil% 0.5 % (0-1); Eosinophil# 0.52 X10^3/uL; Eosinophils% 6.7 % (0-5); Hematocrit 30.9 % (37-47); Hemoglobin 10.2 g/dL (12.0-15.0); Lymphocyte # 1.87 X10^3/ul (0.83-4.51); Lymphocyte % 23.9 % (19-41); Mean Corpuscular Hgb 31.1 pg (27.0-32.0); Mean Corpuscular Volume 94.2 fL (81-99); Mean Platelet Vol. 10.8 fl (6.2-12.0); Monocyte# 0.66 X10^3/uL; Monocyte% 8.5 % (0-10); NRBC Flagged by Analyzer 0 % (0-5); Neutrophil % 60.1 % (47-70); Platelet Count 400 K/mm3 (150-450); RBC Distribution Width SD 44.9 fl (35.1-43.9); Red Blood Count 3.28 M/mm3 (4.2-5.4); White Blood Count 7.8 K/mm3 (4.4-11.0)
[2021-07-26 08:17] LABS: Anion Gap 6 (5-15); BUN 22 mg/dL (7-18); BUN/Creat Ratio 26.4 RATIO (10-20); Calcium,Total 8.5 mg/dL (8.5-10.1); Chloride 109 mmol/L (98-107); Creatinine, Serum 0.83 mg/dL (0.55-1.02); EST Glomerular Filtration Rate 69 mL/min (>60); Est Glom Filt Rate - Afr Amer 84 mL/min (>60); Glucose 92 mg/dL (74-106); Potassium 3.8 mmol/L (3.5-5.1); Sodium Level 140 mmol/L (136-145)
== END | disposition home or self-care (01) ==
LOC: OLS.SW300 04:00
PROVIDERS: Visit Provider Internal Medicine
DX: I10 Essential (primary) hypertension (principal); I63.9 Cerebral infarction, unspecified
CPT/HCPCS: 36415; 80048; 83735; 85025

== ENCOUNTER → 2021-08-10 | Outpatient (REF) | payer MEDICARE, SELFPAY ==
[2021-08-10 14:32] LABS: Hematocrit 32.1 % (37-47); Hemoglobin 10.8 g/dL (12.0-15.0); Mean Corp Hgb Conc 33.6 g/dL (32-36); Mean Corpuscular Hgb 31.2 pg (27.0-32.0); Mean Corpuscular Volume 92.8 fL (81-99); Mean Platelet Vol. 10.4 fl (6.2-12.0); Platelet Count 367 K/mm3 (150-450); RBC Distribution Width CV 13.8 % (11.6-14.6); RBC Distribution Width SD 46.3 fl (35.1-43.9); Red Blood Count 3.46 M/mm3 (4.2-5.4); White Blood Count 6.9 K/mm3 (4.4-11.0)
[2021-08-10 14:47] LABS: Anion Gap 7 (5-15); BUN 12 mg/dL (7-18); BUN/Creat Ratio 13.1 RATIO (10-20); Calcium,Total 8.7 mg/dL (8.5-10.1); Chloride 106 mmol/L (98-107); Creatinine, Serum 0.92 mg/dL (0.55-1.02); EST Glomerular Filtration Rate 62 mL/min (>60); Est Glom Filt Rate - Afr Amer 75 mL/min (>60); Glucose 120 mg/dL (74-106); Sodium Level 139 mmol/L (136-145)
== END | disposition home or self-care (01) ==
LOC: OLS.SW300 14:00
PROVIDERS: Visit Provider Internal Medicine
DX: R41.82 Altered mental status, unspecified (principal)
CPT/HCPCS: 36415; 80048; 85027

== ENCOUNTER 2021-08-17 14:40 | Outpatient (CLI) | payer MEDICARE, SELFPAY ==
[2021-08-17 17:50] LABS: Absolute Lymphocyte Count 1.74 X10^3/uL (0.83-4.51); Absolute Neutrophil Count 4.4 X10^3/uL (2.0-7.7); Basophil# 0.04 X10^3/uL; Basophil% 0.6 % (0-1); Eosinophil# 0.35 X10^3/uL; Eosinophils% 4.9 % (0-5); Hematocrit 33.7 % (37-47); Hemoglobin 10.5 g/dL (12.0-15.0); Lymphocyte # 1.74 X10^3/ul (0.83-4.51); Lymphocyte % 24.2 % (19-41); Mean Corp Hgb Conc 31.2 g/dL (32-36); Mean Corpuscular Hgb 29.8 pg (27.0-32.0); Mean Corpuscular Volume 95.7 fL (81-99); Mean Platelet Vol. 10.7 fl (6.2-12.0); Monocyte% 8.3 % (0-10); NRBC Flagged by Analyzer 0 % (0-5); Neutrophil # 4.44 X10^3/uL (2.7-7.7); Neutrophil % 61.6 % (47-70); Platelet Count 409 K/mm3 (150-450); RBC Distribution Width CV 14.2 % (11.6-14.6); RBC Distribution Width SD 49.1 fl (35.1-43.9); Red Blood Count 3.52 M/mm3 (4.2-5.4); White Blood Count 7.2 K/mm3 (4.4-11.0)
[2021-08-17 18:04] LABS: ALB/GLOB Ratio 0.8 RATIO (0.9-2.4); AST(SGOT) 18 U/L (15-37); Alanine Aminotransfer ALT/SGPT 16 U/L (13-56); Albumin, Serum 2.7 g/dL (3.2-5.0); Alkaline Phosphatase 77 U/L (45-117); Anion Gap 6 (5-15); BUN 15 mg/dL (7-18); BUN/Creat Ratio 16.9 RATIO (10-20); Calcium,Total 8.1 mg/dL (8.5-10.1); Chloride 108 mmol/L (98-107); Creatinine, Serum 0.88 mg/dL (0.55-1.02); EST Glomerular Filtration Rate 64 mL/min (>60); Est Glom Filt Rate - Afr Amer 78 mL/min (>60); Globulin 3.5 g/dL (2.2-4.2); Glucose 117 mg/dL (74-106); Potassium 3.5 mmol/L (3.5-5.1); Protein, Total 6.2 g/dL (6.4-8.2); Sodium Level 139 mmol/L (136-145)
== END 2021-08-17 23:59 | disposition home or self-care (01) ==
LOC: MTLAB 14:41
PROVIDERS: Referring Provider Internal Medicine Rheumatology; Visit Provider Internal Medicine Rheumatology
DX: M06.4 Inflammatory polyarthropathy (principal); I48.91 Unspecified atrial fibrillation; R76.8 Other specified abnormal immunological findings in serum; M17.0 Bilateral primary osteoarthritis of knee; E03.9 Hypothyroidism, unspecified; I10 Essential (primary) hypertension; E78.5 Hyperlipidemia, unspecified; I87.2 Venous insufficiency (chronic) (peripheral); N39.46 Mixed incontinence; Z79.899 Other long term (current) drug therapy
CPT/HCPCS: 36415; 80053; 85025

== ENCOUNTER → 2021-09-25 | Outpatient (REF) | payer MEDICARE, SELFPAY ==
[2021-09-25 12:22] LABS: Mucous, Urine 0 SEEN /hpf (<or=2+); Red Blood Cells-Urine 0 SEEN /hpf (0-5)
[2021-09-25 12:37] LABS: Color, Urine Yellow (Yellow); Glucose, Dipstick Normal (Normal); Ketone-Dipstick 5 mg/dl (Negative); Leukocyte Esterase-Dipstick 100 /ul (Negative); Nitrite-Dipstick Positive (Negative); Occult Blood-Urine 25 /ul (Negative); Protein-Dipstick 30 mg/dl (Negative); Specific Gravity, Urine 1.025 (1.002-1.030); Urine Bilirubin Dipstick Negative (Negative); Urine Clarity Turbid (Clear); Urine Urobilinogen Normal (Normal)
[2021-09-25 12:43] LABS: Bacteria 4+ /hpf (None Seen); Squamous Epithelial Cells - UA 5-10 SEEN /hpf (5-10); White Blood Cells 0-5 SEEN /hpf (0-5)
== END | disposition home or self-care (01) ==
LOC: OLS.BROOKB 12:21
PROVIDERS: Referring Provider Urology; Visit Provider Urology
DX: N39.0 Urinary tract infection, site not specified (principal)
CPT/HCPCS: 81001; 87077; 87086; 87088; 87186

== ENCOUNTER → 2021-09-29 | Outpatient (REF) | payer MEDICARE, SELFPAY ==
[2021-09-29 08:35] LABS: INR Fingerstick 1.1; Prothrombin Time Fingerstick 13.2 SEC (11.7-14.9)
== END | disposition home or self-care (01) ==
LOC: OLS.BROOKB 05:00
PROVIDERS: Visit Provider Family Medicine
DX: I48.91 Unspecified atrial fibrillation (principal)
CPT/HCPCS: 36416; 85610

== ENCOUNTER → 2021-10-13 | Outpatient (REF) | payer MEDICARE, SELFPAY ==
[2021-10-13 11:02] LABS: Absolute Lymphocyte Count 1.19 X10^3/uL (0.83-4.51); Absolute Neutrophil Count 3.9 X10^3/uL (2.0-7.7); Basophil# 0.06 X10^3/uL; Eosinophil# 0.36 X10^3/uL; Eosinophils% 5.8 % (0-5); Hematocrit 34.2 % (37-47); Hemoglobin 10.5 g/dL (12.0-15.0); Lymphocyte # 1.19 X10^3/ul (0.83-4.51); Lymphocyte % 19.1 % (19-41); Mean Corp Hgb Conc 30.7 g/dL (32-36); Mean Corpuscular Hgb 28.3 pg (27.0-32.0); Mean Corpuscular Volume 92.2 fL (81-99); Monocyte# 0.66 X10^3/uL; Monocyte% 10.6 % (0-10); NRBC Flagged by Analyzer 0 % (0-5); Neutrophil # 3.93 X10^3/uL (2.7-7.7); Platelet Count 474 K/mm3 (150-450); RBC Distribution Width SD 54.1 fl (35.1-43.9); Red Blood Count 3.71 M/mm3 (4.2-5.4); White Blood Count 6.2 K/mm3 (4.4-11.0)
[2021-10-13 11:30] LABS: ALB/GLOB Ratio 0.7 RATIO (0.9-2.4); AST(SGOT) 22 U/L (15-37); Alanine Aminotransfer ALT/SGPT 17 U/L (13-56); Albumin, Serum 2.7 g/dL (3.2-5.0); Alkaline Phosphatase 69 U/L (45-117); Anion Gap 6 (5-15); BUN 14 mg/dL (7-18); BUN/Creat Ratio 19.2 RATIO (10-20); Chloride 105 mmol/L (98-107); Creatinine, Serum 0.73 mg/dL (0.55-1.02); EST Glomerular Filtration Rate 80 mL/min (>60); Est Glom Filt Rate - Afr Amer 97 mL/min (>60); Glucose 127 mg/dL (74-106); Potassium 3.3 mmol/L (3.5-5.1); Protein, Total 6.7 g/dL (6.4-8.2); Sodium Level 139 mmol/L (136-145)
== END | disposition home or self-care (01) ==
LOC: OLS.BROOKB 09:10
PROVIDERS: Visit Provider Family Medicine
DX: E03.9 Hypothyroidism, unspecified (principal); M06.9 Rheumatoid arthritis, unspecified; F03.90 Unspecified dementia, unspecified severity, without behavioral disturbance, psychotic disturbance, mood disturbance, and anxiety
CPT/HCPCS: 36415; 80053; 84443; 85025

== ENCOUNTER 2021-10-20 11:00 | Outpatient (RCR) | payer MEDICARE, SELFPAY ==
[2021-10-13 09:44] VITALS: BP 101/60; PULSE 82; RESP 18; TEMP 35.5; BMI 28.1
--- NOTE | 2021-10-13 12:52 | HP.PCM_ITS ---
History of Present Illness Date of Service: 10/13/21 Chief Complaint: Follow-up on right heel left heel right buttocks right ischium left forearm right forearm History of Wound: 86-year-old white female who resides in an assisted living. She is a non-ambulatory patient With encephalopathy and Alzheimer's. Patient started developing sores and they have home health coming into the assisted living to take care of her ulcers. The right heel ulcer smells and it had a thick necrotic tissue. The left heel is a blister with a contusion underneath. Right buttocks has a large open area on it and in the right ischium it is Open and deep. Left and right forearms are skin tears. Daughter brought her in and is not happy with the custodial and is having her transferred out. [facility] Medical History Dementia DVT (deep venous thrombosis) History of blood clots Hyperlipidemia Hypertension Hypothyroidism Paroxysmal atrial fibrillation Rheumatoid arthritis Home Medications raloxifene 60 mg PO DAILY 06/07/17 [History Last Taken 07/12/21 05:36] sotalol 80 mg tablet 40 mg PO BID tab 07/06/19 [History Last Taken 07/12/21 05:35] Myrbetriq 50 mg PO DAILY 09/21/20 [History Last Taken 07/12/21 05:36] fexofenadine 180 mg PO DAILY 09/21/20 [History Last Taken 07/04/21] levothyroxine 200 mcg PO DAILY 09/21/20 [History Last Taken 07/12/21 05:35] acetaminophen 1,000 mg PO Q6H PRN PRN #0 tab 09/30/20 [Rx Last Taken 07/05/21] sulfasalazine [Azulfidine] 500 mg PO BID 07/05/21 [History Last Taken 07/12/21 08:53] melatonin 3 mg PO QHS PRN PRN #0 tab 07/07/21 [Rx Last Taken Unknown] menthol-zinc oxide [Calmoseptine] 1 applic TOPICAL TID 07/07/21 [History Last Taken 07/12/21 05:40] nystatin [Nystop] 1 applic TOPICAL BID 07/12/21 [History Last Taken 07/11/21 20:46] polyethylene glycol 3350 17 g PO DAILY 07/12/21 [History Last Taken 07/12/21 05:34] sennosides-docusate sodium [Stool Softener-Stimulant Laxat] 1 tab PO BID PRN PRN 07/12/21 [History Last Taken 07/12/21 05:35] apixaban [Eliquis] See Taper PO BID #0 tab 07/15/21 [Rx Last Taken Unknown] atorvastatin 40 mg PO QHS #0 tab 07/15/21 [Rx Last Taken Unknown] food supplemt, lactose-reduced [Ensure Enlive] 120 ml PO 4X/DAY #0 ml 07/15/21 [Rx Last Taken Unknown] Allergy/AdvReac Type Severity Reaction Status Date / Time ertapenem [From Invanz] Allergy Rash Verified 07/05/21 17:12 Penicillins Allergy Unknown Verified 09/21/20 12:58 Family History Father CVA (cerebral vascular accident) Mother Cancer Breast. Surgical History H/O discectomy History of appendectomy History of embolic filter insertion S/P insertion of IVC (inferior vena caval) filter Status post right knee replacement Social History household members: none Smoking Status: Never smoker alcohol intake: never substance use type: does not use ROS Integumentary Integumentary: Reports non-healing lesions, skin ulcer and wounds Vital Signs Vital Signs Vital Signs: 10/13/21 09:44 Temperature 96 F L Temperature Source Temporal Pulse Rate 82 Respiratory Rate 18 Blood Pressure 101/60 Blood Pressure Mean 73 Blood Pressure Source Monitor Blood Pressure Position Sitting Blood Pressure Location Left Arm Oxygen Delivery Method Room Air Weight Weight: 165 lb Body Mass Index (BMI) 28.1 Physical Exam Const oriented x3 General Appearance: cooperative Exam Limitations: no limitations Resp normal respiratory effort Effort and Inspection: able to speak in complete sentences Auscultation: clear to auscultation bilaterally Cardio regular rate and regular rhythm Palpation: normal PMI Rate: regular rate Rhythm: regular rhythm Skin no rashes or lesions noted Debridement Note Debridement Note Wound debrided: Right heel decubitus ulcer Wound Grade/Stage: Stage III Type of Debridement: Excisional debridement Anesthesia Used: 5% Lidocaine Gel Depth: in the subcutaneous layer Percentage of wound debrided: 100 Instrument Used: #15 blade and Forceps Tissue Removed: Necrotic devitalized tissue slough Severity: Fat Layer Exposed Amount of bleeding with debridement: Mild Bleeding Controlled with: Compression and gauze Patient tolerated procedure: Patient tolerated procedure well Post-Debridement Measurements and Additional Note: Post-Debridement Measurements/Treatment - Nurse 1 - General Ulcer Assessment Start: 10/13/21 09:40 Freq: Status: Active Protocol: JORDEN Activity Type Activity Date Activity User E-Sign Co-Sign Detail Recorded Client Recorded Date Recorded By Document 10/13/21 09:44 CA [id number] 10/13/21 10:24 CA 10/13/21 09:44 - Today's Visit Information Type of service Initial Visit Arrival Mode Wheelchair Transfer Assistance Sonny Lift Accompanied by son (Jhon) Patient Identification Verified (Name & Yes ) Safety Precautions Fall Prevention Height and Weight Height 5 ft 4.17 in Weight 165 lb Weight in Pounds 165.0 lbs Body Mass Index (BMI) 28.1 BMI Classification Overweight BSA - Tammy 1.81 Vital Signs Temperature (97.8 F-99.1 F) 96 F L Temperature Source Temporal Pulse Rate (60-100) 82 Pulse Location Monitor Respiratory Rate (12-18) 18 Respiratory rate source Observation Oxygen Delivery Method Room Air Blood Pressure (90/60-120/80) 101/60 Blood Pressure Mean 73 Source Monitor Position Sitting Blood Pressure Location Left Arm History Since Last Visit- (Skip if this is Patient's initial visit) Has dressing in place as prescribed Yes Has compression in place as prescribed Yes Has offloadiing in place as prescribed Yes Experienced any changes in pain level or Yes management Left Footwear Regular Shoe Right Footwear Regular Shoe Pain Scale: 0-10 Numeric Is Patient Pain Free? Yes - Nurse 1 - General Ulcer Measurement Start: 10/13/21 09:40 Freq: Status: Active Protocol: Activity Type Activity Date Activity User E-Sign Co-Sign Detail Recorded Client Recorded Date Recorded By Document 10/13/21 09:44 CA [id number] 10/13/21 10:24 CA 10/13/21 09:44 Wound Center Nurse 1 #7 Right Buttock -Current Size (cm) - Length 5.2 -Current Size (cm) - Width 2.0 -Current Size (cm) - Depth 0.1 -Total Square Cm 10.40 -Exudate Amt Small -Exudate Type Serosanguineous -Wound Margin Flat & Intact -Granulation Amt Medium (34-66%) -Granulation Quality Pale,[place] -Necrosis Amt Medium (34-66%) -Necrotic Tissue Type Adherent Slough -Texture (Carli-wound Skin Appearance) Assessed -Moisture (Carli-wound Skin Appearance) Assessed -Color (Carli-wound Skin Appearance) Assessed -Temperature (Carli-wound Skin No Abnormality Appearance) (Pt Warm) -Tenderness on Palpation (Carli-wound No Skin Appearance) -Ulcer Cleansing Wound Cleanser -Foul Odor after Cleansing No -Anesthetic Used 4% Lidocaine Solution #6 Left Buttocks -Current Size (cm) - Length 0.5 -Current Size (cm) - Width 0.7 -Current Size (cm) - Depth 0.1 -Total Square Cm 0.35 -Exudate Amt Small -Exudate Type Serosanguineous -Wound Margin Flat & Intact -Granulation Amt Medium (34-66%) -Granulation Quality Pale,[place] -Necrosis Amt Medium (34-66%) -Necrotic Tissue Type Adherent Slough -Texture (Carli-wound Skin Appearance) Assessed -Moisture (Carli-wound Skin Appearance) Assessed -Color (Carli-wound Skin Appearance) Assessed -Temperature (Carli-wound Skin No Abnormality Appearance) (Pt Warm) -Tenderness on Palpation (Carli-wound No Skin Appearance) -Ulcer Cleansing Wound Cleanser -Foul Odor after Cleansing No -Anesthetic Used 4% Lidocaine Solution #5 Right Gluteal fold -Current Size (cm) - Length 4.5 -Current Size (cm) - Width 6.0 -Current Size (cm) - Depth 0.3 -Total Square Cm 27.00 -Exudate Amt Small -Exudate Type Serosanguineous -Wound Margin Flat & Intact -Granulation Amt Medium (34-66%) -Granulation Quality Pale,[place] -Necrosis Amt Medium (34-66%) -Necrotic Tissue Type Adherent Slough -Texture (Carli-wound Skin Appearance) Assessed -Moisture (Caril-wound Skin Appearance) Assessed -Color (Carli-wound Skin Appearance) Assessed -Temperature (Carli-wound Skin No Abnormality Appearance) (Pt Warm) -Tenderness on Palpation (Carli-wound No Skin Appearance) -Ulcer Cleansing Wound Cleanser -Foul Odor after Cleansing No -Anesthetic Used 4% Lidocaine Solution #4 Right Heel -Current Size (cm) - Length 4 -Current Size (cm) - Width 5.8 -Current Size (cm) - Depth 0.2 -Total Square Cm 23.2 -Exudate Amt Medium -Exudate Type Serosanguineous -Wound Margin Thickened & Rolled Under -Granulation Amt Medium (34-66%) -Granulation Quality Pale,[place] -Necrosis Amt Medium (34-66%) -Necrotic Tissue Type Adherent Slough -Texture (Carli-wound Skin Appearance) Assessed -Moisture (Carli-wound Skin Appearance) Assessed -Color (Carli-wound Skin Appearance) Assessed -Temperature (Carli-wound Skin No Abnormality Appearance) (Pt Warm) -Tenderness on Palpation (Carli-wound No Skin Appearance) -Ulcer Cleansing Rinsed/ Irrigated with Saline -Foul Odor after Cleansing No -Anesthetic Used 4% Lidocaine Solution #3 left Heel -Current Size (cm) - Length 1.5 -Current Size (cm) - Width 2.0 -Current Size (cm) - Depth 0.1 -Total Square Cm 3.00 -Exudate Amt Small -Exudate Type Serosanguineous -Wound Margin Flat & Intact -Granulation Amt Large (67-100%) -Granulation Quality Pale,[place] -Necrosis Amt Medium (34-66%) -Necrotic Tissue Type Adherent Slough -Texture (Carli-wound Skin Appearance) Assessed,Callus -Moisture (Carli-wound Skin Appearance) Assessed -Color (Carli-wound Skin Appearance) Assessed -Temperature (Carli-wound Skin No Abnormality Appearance) (Pt Warm) -Tenderness on Palpation (Carli-wound No Skin Appearance) -Ulcer Cleansing Rinsed/ Irrigated with Saline -Anesthetic Used 4% Lidocaine Solution -Wound Comment(s) pressure no open area #2 Right Forearm -Current Size (cm) - Length 0.2 -Current Size (cm) - Width 0.8 -Current Size (cm) - Depth 0.1 -Total Square Cm 0.16 -Exudate Amt Small -Exudate Type Serosanguineous -Wound Margin Flat & Intact -Necrosis Amt Large (67-100%) -Texture (Carli-wound Skin Appearance) Assessed -Moisture (Carli-wound Skin Appearance) Assessed -Color (Carli-wound Skin Appearance) Assessed -Temperature (Carli-wound Skin No Abnormality Appearance) (Pt Warm) -Tenderness on Palpation (Carli-wound No Skin Appearance) -Ulcer Cleansing Rinsed/ Irrigated with Saline -Anesthetic Used 4% Lidocaine Solution #1 Left Forearm -Current Size (cm) - Length 0.2 -Current Size (cm) - Width 2.0 -Current Size (cm) - Depth 0.1 -Total Square Cm 0.40 -Exudate Amt Small -Exudate Type Serosanguineous -Wound Margin Flat & Intact -Granulation Amt Large (67-100%) -Granulation Quality Pale,[place] -Necrosis Amt Medium (34-66%) -Texture (Carli-wound Skin Appearance) Assessed -Moisture (Carli-wound Skin Appearance) Assessed -Color (Carli-wound Skin Appearance) Assessed -Temperature (Carli-wound Skin No Abnormality Appearance) (Pt Warm) -Tenderness on Palpation (Carli-wound No Skin Appearance) -Ulcer Cleansing Rinsed/ Irrigated with Saline -Foul Odor after Cleansing No -Anesthetic Used 4% Lidocaine Solution Lower Limb Edema Present NA WC - Nurse 2 - General Ulcer CM Notes Start: 10/13/21 09:40 Freq: Status: Active Protocol: Activity Type Activity Date Activity User E-Sign Co-Sign Detail Recorded Client Recorded Date Recorded By Document 10/13/21 10:48 MW [id number] 10/13/21 11:15 MW 10/13/21 10:48 Wound Center Nurse 2 #7 Right Buttock -Time 10:53 -Correct Patient Yes -Correct Side, Site, Position Yes -Correct Procedure Yes -Procedure Performed Yes -Type of Procedure Debridement -Clinical Debridement Subcutaneous -Tissue Removed Subcutaneous -Post Debridement (cm) - Length 5.0 -Post Debridement (cm) - Width 2.0 -Post Debridement (cm) - Depth 0.1 -Total Square (Post) (cm) 10.00 -Area of Debridement (cm) - Length 5.0 -Area of Debridement (cm) - Width 2.0 -Total Square (Area) (cm) 10.00 -Tunneling No -Undermining/Tunneling No -Circular Undermining No -Wound/Ulcer Outcome Not Healed -Ulcer Cleansing Rinsed/ Irrigated with Saline -Foul Odor after Cleansing No -Bioengineered Tissue No -Bleeding Controlled with Pressure -Treatment Response Procedure Tolerated Well -Offloading No -Debridement - Subq, 1st 20sq cm Yes -Debridement, SubQ, ea addt'l 20sq cm 2 or part thereof #6 Left Buttocks -Time 10:54 -Correct Patient Yes -Correct Side, Site, Position Yes -Correct Procedure Yes -Procedure Performed Yes -Type of Procedure Debridement -Clinical Debridement Subcutaneous -Tissue Removed Subcutaneous -Post Debridement (cm) - Length 0.5 -Post Debridement (cm) - Width 1.0 -Post Debridement (cm) - Depth 0.1 -Total Square (Post) (cm) 0.50 -Area of Debridement (cm) - Length 0.5 -Area of Debridement (cm) - Width 1.0 -Total Square (Area) (cm) 0.50 -Tunneling No -Undermining/Tunneling No -Circular Undermining No -Wound/Ulcer Outcome Not Healed -Ulcer Cleansing Rinsed/ Irrigated with Saline -Foul Odor after Cleansing No -Bioengineered Tissue No -Bleeding Controlled with Pressure -Treatment Response Procedure Tolerated Well -Offloading No -Debridement - Subq, 1st 20sq cm No #5 Right Gluteal fold -Time 10:57 -Correct Patient Yes -Correct Side, Site, Position Yes -Correct Procedure Yes -Procedure Performed Yes -Type of Procedure Debridement -Clinical Debridement Subcutaneous -Tissue Removed Subcutaneous -Post Debridement (cm) - Length 2.0 -Post Debridement (cm) - Width 6.0 -Post Debridement (cm) - Depth 0.2 -Total Square (Post) (cm) 12.00 -Area of Debridement (cm) - Length 2.0 -Area of Debridement (cm) - Width 6.0 -Total Square (Area) (cm) 12.00 -Tunneling No -Undermining/Tunneling No -Circular Undermining No -Wound/Ulcer Outcome Not Healed -Ulcer Cleansing Rinsed/ Irrigated with Saline -Foul Odor after Cleansing No -Bioengineered Tissue No -Bleeding Controlled with Pressure -Treatment Response Procedure Tolerated Well -Offloading No -Debridement - Subq, 1st 20sq cm No #4 Right Heel -Time 11:00 -Correct Patient Yes -Correct Side, Site, Position Yes -Correct Procedure Yes -Procedure Performed Yes -Type of Procedure Debridement -Clinical Debridement Subcutaneous -Tissue Removed Subcutaneous -Post Debridement (cm) - Length 3.5 -Post Debridement (cm) - Width 4.5 -Post Debridement (cm) - Depth 0.2 -Total Square (Post) (cm) 15.75 -Area of Debridement (cm) - Length 3.5 -Area of Debridement (cm) - Width 4.5 -Total Square (Area) (cm) 15.75 -Tunneling No -Undermining/Tunneling No -Circular Undermining No -Wound/Ulcer Outcome Not Healed -Ulcer Cleansing Rinsed/ Irrigated with Saline -Foul Odor after Cleansing No -Bioengineered Tissue No -Bleeding Controlled with Pressure -Treatment Response Procedure Tolerated Well -Offloading No -Debridement - Subq, 1st 20sq cm No #3 left Heel -Time 11:02 -Correct Patient Yes -Correct Side, Site, Position Yes -Correct Procedure Yes -Procedure Performed Yes -Type of Procedure Debridement -Clinical Debridement Subcutaneous -Tissue Removed Subcutaneous -Post Debridement (cm) - Length 1.0 -Post Debridement (cm) - Width 2.5 -Post Debridement (cm) - Depth 0.1 -Total Square (Post) (cm) 2.50 -Area of Debridement (cm) - Length 1.0 -Area of Debridement (cm) - Width 2.5 -Total Square (Area) (cm) 2.50 -Tunneling No -Undermining/Tunneling No -Circular Undermining No -Wound/Ulcer Outcome Not Healed -Ulcer Cleansing Rinsed/ Irrigated with Saline -Foul Odor after Cleansing No -Bioengineered Tissue No -Bleeding Controlled with Pressure -Treatment Response Procedure Tolerated Well -Offloading No -Debridement - Subq, 1st 20sq cm No #2 Right Forearm -Time 11:06 -Correct Patient Yes -Correct Side, Site, Position Yes -Correct Procedure Yes -Procedure Performed No -Circular Undermining No -Wound/Ulcer Outcome Not Healed #1 Left Forearm -Time 11:07 -Correct Patient Yes -Correct Side, Site, Position Yes -Correct Procedure Yes -Procedure Performed Yes -Type of Procedure Debridement -Clinical Debridement Subcutaneous -Tissue Removed Subcutaneous -Post Debridement (cm) - Length 0.2 -Post Debridement (cm) - Width 1.7 -Post Debridement (cm) - Depth 0.1 -Total Square (Post) (cm) 0.34 -Area of Debridement (cm) - Length 0.2 -Area of Debridement (cm) - Width 1.7 -Total Square (Area) (cm) 0.34 -Tunneling No -Undermining/Tunneling No -Circular Undermining No -Wound/Ulcer Outcome Not Healed -Ulcer Cleansing Rinsed/ Irrigated with Saline -Foul Odor after Cleansing No -Bioengineered Tissue No -Bleeding Controlled with Pressure -Treatment Response Procedure Tolerated Well -Offloading No -Debridement - Subq, 1st 20sq cm No Pain Scale: 0-10 Numeric Is Patient Pain Free? Yes WC - Nurse 3 - General Ulcer D/C NN Start: 10/13/21 09:40 Freq: Status: Active Protocol: Activity Type Activity Date Activity User E-Sign Co-Sign Detail Recorded Client Recorded Date Recorded By Document 10/13/21 11:53 FISH [id number] 10/13/21 12:00 FISH 10/13/21 11:53 Wound Care Nurse 3 #7 Right Buttock -Ulcer Cleansing Rinsed/ Irrigated with Saline -Foul Odor after Cleansing No -Negative Pressure Wound Therapy N/A -Primary Dressing Applied Aquacel AG 4x4, Mepilex Border -Aquacel AG 4x4 2 -Mepilex Border 3 #6 Left Buttocks -Ulcer Cleansing Rinsed/ Irrigated with Saline -Foul Odor after Cleansing No -Negative Pressure Wound Therapy N/A -Primary Dressing Applied Aquacel AG 4x4, Mepilex Border -Aquacel AG 4x4 0 -Mepilex Border 0 #5 Right Gluteal fold -Ulcer Cleansing Rinsed/ Irrigated with Saline -Foul Odor after Cleansing No -Negative Pressure Wound Therapy N/A -Primary Dressing Applied Aquacel AG 4x4, Mepilex Border -Aquacel AG 4x4 0 -Mepilex Border 0 #4 Right Heel -Ulcer Cleansing Rinsed/ Irrigated with Saline -Foul Odor after Cleansing No -Negative Pressure Wound Therapy N/A -Primary Dressing Applied Aquacel AG 4x4, Mepilex Border -Aquacel AG 4x4 0 -Mepilex Border 0 #3 left Heel -Ulcer Cleansing Rinsed/ Irrigated with Saline -Foul Odor after Cleansing No -Negative Pressure Wound Therapy N/A -Primary Dressing Applied Aquacel AG 4x4, Mepilex Border -Aquacel AG 4x4 0 -Mepilex Border 0 #2 Right Forearm -Ulcer Cleansing Rinsed/ Irrigated with Saline -Foul Odor after Cleansing No -Negative Pressure Wound Therapy N/A -Other Dressing xeroform -Primary Dressing Covered/Secured with Dry Gauze & Roll Gauze, Secured with Tape #1 Left Forearm -Ulcer Cleansing Rinsed/ Irrigated with Saline -Foul Odor after Cleansing No -Negative Pressure Wound Therapy N/A -Other Dressing xeroform -Primary Dressing Covered/Secured with Dry Gauze & Roll Gauze, Secured with Tape Pain Scale: 0-10 Numeric Is Patient Pain Free? Yes WC - Visit Discharge Discharge Condition Stable Ambulatory Status Wheelchair Transportation Private Auto Accompanied by daughter and son Medication Reconcilliation completed & Yes provided to patient/care provider Clinical Summary of Care Provided Yes Additional Wound Wound debrided: Left heel blood blister Wound Grade/Stage: Stage II Anesthesia Used: 5% Lidocaine Gel Depth: Down to and including healthy tissue and in the subcutaneous layer Percentage of wound debrided: 100 Instrument Used: 7mm curette Severity: Limited To Skin Breakdown Amount of bleeding with debridement: Mild Bleeding Controlled with: Compression and gauze Patient tolerated procedure: Patient tolerated procedure well Additional Wound Wound debrided: Right buttocks Wound Grade/Stage: Stage II shearing Type of Debridement: Excisional debridement Anesthesia Used: 5% Lidocaine Gel Depth: Down to and including healthy tissue and in the subcutaneous layer Percentage of wound debrided: 100 Instrument Used: 5mm curette Severity: Fat Layer Exposed Amount of bleeding with debridement: Mild Bleeding Controlled with: Compression and gauze Patient tolerated procedure: Patient tolerated procedure well Additional Wound Wound debrided: Right ischium pressure Laterality: Right Wound Grade/Stage: Stage II Type of Debridement: Excisional debridement Anesthesia Used: 5% Lidocaine Gel Depth: Down to and including healthy tissue and in the subcutaneous layer Percentage of wound debrided: 100 Instrument Used: 7mm curette Tissue Removed: Fibrin and slough Severity: Fat Layer Exposed Amount of bleeding with debridement: Mild Bleeding Controlled with: Compression and gauze Patient tolerated procedure: Patient tolerated procedure well Additional Wound Wound debrided: Left forearm skin tear Type of Debridement: Excisional debridement Anesthesia Used: 5% Lidocaine Gel Depth: Down to and including healthy tissue Percentage of wound debrided: 100 Instrument Used: 7mm curette Tissue Removed: Fibrin Severity: Limited To Skin Breakdown Amount of bleeding with debridement: Mild Bleeding Controlled with: Compression and gauze Patient tolerated procedure: Patient tolerated procedure well Additional Wound Wound debrided: Right forearm skin tear Type of Debridement: Excisional debridement Anesthesia Used: 5% Lidocaine Gel Depth: Down to and including healthy tissue Percentage of wound debrided: 100 Instrument Used: 7mm curette Tissue Removed: Fibrin Severity: Limited To Skin Breakdown Amount of bleeding with debridement: Mild Bleeding Controlled with: Compression and gauze Patient tolerated procedure: Patient tolerated procedure well Assessment/Plan Assessment/Plan (1) Decubitus ulcer of right heel, stage 3: CODE(S): L89.613 - Pressure ulcer of right heel, stage 3 PLAN: Wash right heel with antibacterial soap apply Aquacel Ag to area moistened cover with gauze and Peace daily Cultures obtained right heel we will call with results (2) Decubitus ulcer of left heel, stage 2: CODE(S): L89.622 - Pressure ulcer of left heel, stage 2 PLAN: Wash left heel with antibacterial soap apply Aquacel Ag to wound area moistened cover with gauze and Peace every day (3) Decubitus ulcer of right buttock, stage 2: CODE(S): L89.312 - Pressure ulcer of right buttock, stage 2 PLAN: Wash right buttocks with antibacterial soap and apply Aquacel AG moistened ABD and tape every day (4) Right ischial pressure sore, stage 2: CODE(S): L89.312 - Pressure ulcer of right buttock, stage 2 PLAN: Wash ischial area with an type bacterial soap and apply Aquacel Ag moistened gauze and pad (5) Skin tear of left forearm without complication: CODE(S): S51.812A - Laceration without foreign body of left forearm, ini tia encounter QUALIFIERS: Encounter type: initial encounter Qualified Code(s): S51.812A - Laceration without foreign body of left forearm, initial encounter PLAN: Wash skin tear with antibacterial soap and water apply Xeroform dressing to area and cover with gauze and Peace every day (6) Skin tear of right forearm without complication: CODE(S): S51.811A - Laceration without foreign body of right forearm, initial encounter QUALIFIERS: Encounter type: initial encounter Qualified Code(s): S51.811A - Laceration without foreign body of right forearm, initial encounter PLAN: Wash right forearm with antibacterial soap apply Xeroform dressing with gauze over top Peace every day follow-up in 1 week (7) Infarction of left basal ganglia: CODE(S): I63.9 - Cerebral infarction, unspecified (8) Encephalopathy acute: CODE(S): G93.40 - Encephalopathy, unspecified (9) Overactive bladder: CODE(S): N32.81 - Overactive bladder (10) Alzheimer disease: CODE(S): G30.9 - Alzheimer's disease, unspecified; F02.80 - Dementia in other diseases classified elsewhere without behavioral disturbance
[2021-10-20 11:10] VITALS: BP 143/84; PULSE 69; TEMP 36.2; BMI 28.1
--- NOTE | 2021-10-20 12:24 | PN.PCM_ITS ---
History of Present Illness Date of Service: 10/20/21 Chief Complaint: Follow-up on right heel left heel right buttocks right ischium left forearm right forearm History of Wound: 86-year-old white female who resides in an assisted living. She is a non-ambulatory patient With encephalopathy and Alzheimer's. Patient started developing sores and they have home health coming into the assisted living to take care of her ulcers. The right heel ulcer smells and it had a thick necrotic tissue. The left heel is a blister with a contusion underneath. Right buttocks has a large open area on it and in the right ischium it is Open and deep. Left and right forearms are skin tears. Daughter brought her in and is not happy with the [facility] and is having her transferred out. Progress of Wound: Cultures came back positive patient was started on antibiotics with microbes. She has just started the antibiotic therapy. Right heel still necrotic and with lifting took off a large portion of the slough and necrotic tissue still has a bad odor to the right heel measurements are about the same less deep. Left heel again is bruised and contused, trying to just keep it padded and protected and hopefully it will not open it is larger they are not keeping her pressure off of it. Right buttocks is more shallow and smaller in size left buttocks is also very much smaller and more shallow cleaned easily no sign of infections right forearm is healed left forearm is smaller we will continue using the Xeroform to those areas. Subjective Subjective Son was here today and they are still trying to get her transferred to [facility] Objective Data Objective Data As talked about in progress notes all the wounds look better right heel is the worst still smells still using Aquacel extra and getting around the proper antibiotics and offloading. Vital Signs: Vital Signs Temp Pulse Resp BP 97.2 F L 69 18 143/84 H 10/20/21 11:10 10/20/21 11:10 10/13/21 09:44 10/20/21 11:10 Oxygen Delivery Method Room Air Weight: 165 lb Body Mass Index (BMI) 28.1 Lab / Micro Data Micro: Microbiology 10/13/21 11:00 Wound Abcess - Heel Right Gram Stain - Final 10/13/21 11:00 Wound Abcess - Heel Right Wound Culture - Final Meth. resistant Staph. aureus Corynebacterium amycolatum 10/13/21 11:00 Wound Abcess - Heel Right Anaerobic Culture - Final Anaerobic cocci Physical Exam Const oriented x3 General Appearance: cooperative Exam Limitations: no limitations Resp normal respiratory effort Effort and Inspection: able to speak in complete sentences Auscultation: clear to auscultation bilaterally Cardio regular rate and regular rhythm Palpation: normal PMI Rate: regular rate Rhythm: regular rhythm Skin no rashes or lesions noted Debridement Note Debridement Note Wound debrided: Right heel pressure Laterality: Right Wound Grade/Stage: Stage III Type of Debridement: Excisional debridement Anesthesia Used: 5% Lidocaine Gel Depth: in the subcutaneous layer Percentage of wound debrided: 100 Instrument Used: #15 blade and Forceps Tissue Removed: Necrotic and slough Severity: Fat Layer Exposed Amount of bleeding with debridement: Mild Bleeding Controlled with: Compression and gauze Patient tolerated procedure: Patient tolerated procedure well Post-Debridement Measurements and Additional Note: Post-Debridement Measure ments/Treatment - Nurse 1 - General Ulcer Assessment Start: 10/13/21 09:40 Freq: Status: Active Protocol: JORDEN Activity Type Activity Date Activity User E-Sign Co-Sign Detail Recorded Client Recorded Date Recorded By Document 10/13/21 09:44 IN [id number] 10/13/21 10:24 IN Document 10/20/21 11:10 [id number] 10/20/21 11:24 10/13/21 10/20/21 09:44 11:10 - Today's Visit Information Type of service Initial Visit Follow-up Visit (Physician/CLOTHING [employer]TER ) Arrival Mode Wheelchair Wheelchair Transfer Assistance Sonny Lift Accompanied by son (Jhon) Patient Identification Verified (Name & Yes Yes ) Safety Precautions Fall Prevention Height and Weight Height 5 ft 4.17 in Weight 165 lb Weight in Pounds 165.0 lbs Body Mass Index (BMI) 28.1 28.1 BMI Classification Overweight Overweight BSA - Tammy 1.81 Vital Signs Temperature (97.8 F-99.1 F) 96 F L 97.2 F L Temperature Source Temporal Temporal Pulse Rate (60-100) 82 69 Pulse Location Monitor Monitor Respiratory Rate (12-18) 18 Respiratory rate source Observation Oxygen Delivery Method Room Air Blood Pressure (90/60-120/80) 101/60 143/84 H Blood Pressure Mean (mm Hg) 73 103 Source Monitor Monitor Position Sitting Sitting Blood Pressure Location Left Arm Left Arm History Since Last Visit- (Skip if this is Patient's initial visit) Have you changed medications since your No last visit? Any new allergies or adverse reactions No Had a fall/change in ADL's that may No increase risk of falls Signs or symptoms of abuse and/or No neglect since last visit Have you been in the hospital since your No last visit? Has dressing in place as prescribed Yes Yes Has compression in place as prescribed Yes Yes Has offloadiing in place as prescribed Yes N/A Experienced any changes in pain level or Yes No management Left Footwear Regular Shoe No Footwear Right Footwear Regular Shoe No Footwear Pain Scale: 0-10 Numeric Is Patient Pain Free? Yes Yes WC - Nurse 1 - General Ulcer Measurement Start: 10/13/21 09:40 Freq: Status: Active Protocol: Activity Type Activity Date Activity User E-Sign Co-Sign Detail Recorded Client Recorded Date Recorded By Document 10/13/21 09:44 IN [id number] 10/13/21 10:24 IN Document 10/20/21 11:10 [id number] 10/20/21 11:24 KR 10/13/21 10/20/21 09:44 11:10 Wound Center Nurse 1 #7 Right Buttock -Current Size (cm) - Length 5.2 3.5 -Current Size (cm) - Width 2.0 2.5 -Current Size (cm) - Depth 0.1 0.1 -Total Square Cm 10.40 8.75 -Exudate Amt Small Small -Exudate Type Serosanguineous Serosanguineous -Wound Margin Flat & Intact Distinct, Outline Attached -Granulation Amt Medium (34-66%) Large (67-100%) -Granulation Quality Pale,[place] Red -Necrosis Amt Medium (34-66%) None Present (0 %) -Necrotic Tissue Type Adherent Slough -Texture (Carli-wound Skin Appearance) Assessed Assessed, Scarring -Moisture (Carli-wound Skin Appearance) Assessed No Abnormality, Assessed -Color (Carli-wound Skin Appearance) Assessed No Abnormality, Assessed -Temperature (Carli-wound Skin No Abnormality No Abnormality Appearance) (Pt Warm) (Pt Warm) -Tenderness on Palpation (Carli-wound No No Skin Appearance) -Ulcer Cleansing Wound Cleanser Rinsed/ Irrigated with Saline -Foul Odor after Cleansing No No -Anesthetic Used 4% Lidocaine 4% Lidocaine Solution Solution #6 Left Buttocks -Current Size (cm) - Length 0.5 0.4 -Current Size (cm) - Width 0.7 0.5 -Current Size (cm) - Depth 0.1 0.1 -Total Square Cm 0.35 0.20 -Exudate Amt Small Small -Exudate Type Serosanguineous Serosanguineous -Wound Margin Flat & Intact Distinct, Outline Attached -Granulation Amt Medium (34-66%) Small (1-33%) -Granulation Quality Pale,[place] -Necrosis Amt Medium (34-66%) None Present (0 %) -Necrotic Tissue Type Adherent Slough -Texture (Carli-wound Skin Appearance) Assessed No Abnormality, Assessed, Scarring -Moisture (Carli-wound Skin Appearance) Assessed -Color (Carli-wound Skin Appearance) Assessed No Abnormality, Assessed -Temperature (Carli-wound Skin No Abnormality No Abnormality Appearance) (Pt Warm) (Pt Warm) -Tenderness on Palpation (Carli-wound No No Skin Appearance) -Ulcer Cleansing Wound Cleanser Rinsed/ Irrigated with Saline -Foul Odor after Cleansing No No -Anesthetic Used 4% Lidocaine 4% Lidocaine Solution Solution #5 Right Gluteal fold -Current Size (cm) - Length 4.5 2.5 -Current Size (cm) - Width 6.0 2.5 -Current Size (cm) - Depth 0.3 0.3 -Total Square Cm 27.00 6.25 -Exudate Amt Small Medium -Exudate Type Serosanguineous Serosanguineous -Wound Margin Flat & Intact Distinct, Outline Attached -Granulation Amt Medium (34-66%) Medium (34-66%) -Granulation Quality Pale,[place] Red -Necrosis Amt Medium (34-66%) Small (1-33%) -Necrotic Tissue Type Adherent Slough Adherent Slough -Texture (Carli-wound Skin Appearance) Assessed Assessed, Scarring -Moisture (Carli-wound Skin Appearance) Assessed No Abnormality, Assessed -Color (Carli-wound Skin Appearance) Assessed No Abnormality, Assessed -Temperature (Carli-wound Skin No Abnormality No Abnormality Appearance) (Pt Warm) (Pt Warm) -Tenderness on Palpation (Carli-wound No No Skin Appearance) -Ulcer Cleansing Wound Cleanser Rinsed/ Irrigated with Saline -Foul Odor after Cleansing No No -Anesthetic Used 4% Lidocaine 4% Lidocaine Solution Solution #4 Right Heel -Current Size (cm) - Length 4 3.6 -Current Size (cm) - Width 5.8 3.8 -Current Size (cm) - Depth 0.2 1 -Total Square Cm 23.2 13.68 -Exudate Amt Medium Medium -Exudate Type Serosanguineous Serosanguineous -Wound Margin Thickened & Distinct, Rolled Under Outline Attached -Granulation Amt Medium (34-66%) -Granulation Quality Pale,[place] -Necrosis Amt Medium (34-66%) Large (67-100%) -Necrotic Tissue Type Adherent Slough Adherent Slough -Texture (Carli-wound Skin Appearance) Assessed Assessed, Scarring -Moisture (Carli-wound Skin Appearance) Assessed No Abnormality, Assessed -Color (Carli-wound Skin Appearance) Assessed No Abnormality, Assessed -Temperature (Carli-wound Skin No Abnormality No Abnormality Appearance) (Pt Warm) (Pt Warm) -Tenderness on Palpation (Carli-wound No No Skin Appearance) -Ulcer Cleansing Rinsed/ Rinsed/ Irrigated with Irrigated with Saline Saline -Foul Odor after Cleansing No No -Anesthetic Used 4% Lidocaine 4% Lidocaine Solution Solution #3 left Heel -Current Size (cm) - Length 1.5 1 -Current Size (cm) - Width 2.0 0.6 -Current Size (cm) - Depth 0.1 0.1 -Total Square Cm 3.00 0.6 -Exudate Amt Small Small -Exudate Type Serosanguineous Serosanguineous -Wound Margin Flat & Intact Distinct, Outline Attached -Granulation Amt Large (67-100%) -Granulation Quality Pale,[place] -Necrosis Amt Medium (34-66%) Large (67-100%) -Necrotic Tissue Type Adherent Slough Eschar -Texture (Carli-wound Skin Appearance) Assessed,Callus Assessed, Scarring -Moisture (Carli-wound Skin Appearance) Assessed No Abnormality, Assessed -Color (Carli-wound Skin Appearance) Assessed No Abnormality, Assessed -Temperature (Carli-wound Skin No Abnormality No Abnormality Appearance) (Pt Warm) (Pt Warm) -Tenderness on Palpation (Carli-wound No No Skin Appearance) -Ulcer Cleansing Rinsed/ Rinsed/ Irrigated with Irrigated with Saline Saline -Foul Odor after Cleansing No -Anesthetic Used 4% Lidocaine 4% Lidocaine Solution Solution -Wound Comment(s) pressure no open area #2 Right Forearm -Current Size (cm) - Length 0.2 2.4 -Current Size (cm) - Width 0.8 0.5 -Current Size (cm) - Depth 0.1 0.1 -Total Square Cm 0.16 1.20 -Exudate Amt Small Medium -Exudate Type Serosanguineous Serosanguineous -Wound Margin Flat & Intact Distinct, Outline Attached -Granulation Amt Large (67-100%) -Granulation Quality Red -Necrosis Amt Large (67-100%) None Present (0 %) -Texture (Carli-wound Skin Appearance) Assessed Assessed, Scarring -Moisture (Carli-wound Skin Appearance) Assessed No Abnormality, Assessed -Color (Carli-wound Skin Appearance) Assessed No Abnormality, Assessed -Temperature (Carli-wound Skin No Abnormality No Abnormality Appearance) (Pt Warm) (Pt Warm) -Tenderness on Palpation (Carli-wound No No Skin Appearance) -Ulcer Cleansing Rinsed/ Rinsed/ Irrigated with Irrigated with Saline Saline -Foul Odor after Cleansing No -Anesthetic Used 4% Lidocaine 4% Lidocaine Solution Solution #1 Left Forearm -Current Size (cm) - Length 0.2 0.1 -Current Size (cm) - Width 2.0 0.1 -Current Size (cm) - Depth 0.1 0.1 -Total Square Cm 0.40 0.01 -Exudate Amt Small -Exudate Type Serosanguineous -Wound Margin Flat & Intact Distinct, Outline Attached -Granulation Amt Large (67-100%) -Granulation Quality Pale,[place] -Necrosis Amt Medium (34-66%) -Texture (Carli-wound Skin Appearance) Assessed Assessed, Scarring -Moisture (Carli-wound Skin Appearance) Assessed No Abnormality, Assessed -Color (Carli-wound Skin Appearance) Assessed No Abnormality, Assessed -Temperature (Carli-wound Skin No Abnormality No Abnormality Appearance) (Pt Warm) (Pt Warm) -Tenderness on Palpation (Carli-wound No No Skin Appearance) -Ulcer Cleansing Rinsed/ Rinsed/ Irrigated with Irrigated with Saline Saline -Foul Odor after Cleansing No No -Anesthetic Used 4% Lidocaine 4% Lidocaine Solution Solution Lower Limb Edema Present NA WC - Nurse 2 - General Ulcer CM Notes Start: 10/13/21 09:40 Freq: Status: Active Protocol: Activity Type Activity Date Activity User E-Sign Co-Sign Detail Recorded Client Recorded Date Recorded By Document 10/13/21 10:48 MW [id number] 10/13/21 11:15 MW Document 10/20/21 11:35 MW [id number] 10/20/21 11:45 MW 10/13/21 10/20/21 10:48 11:35 Wound Center Nurse 2 #7 Right Buttock -Time 10:53 11:35 -Correct Patient Yes Yes -Correct Side, Site, Position Yes Yes -Correct Procedure Yes Yes -Procedure Performed Yes Yes -Type of Procedure Debridement Debridement -Clinical Debridement Subcutaneous Subcutaneous -Tissue Removed Subcutaneous Subcutaneous -Post Debridement (cm) - Length 5.0 3.0 -Post Debridement (cm) - Width 2.0 2.0 -Post Debridement (cm) - Depth 0.1 0.1 -Total Square (Post) (cm) 10.00 6.00 -Area of Debridement (cm) - Length 5.0 3.0 -Area of Debridement (cm) - Width 2.0 2.0 -Total Square (Area) (cm) 10.00 6.00 -Tunneling No No -Undermining/Tunneling No No -Circular Undermining No No -Wound/Ulcer Outcome Not Healed Not Healed -Ulcer Cleansing Rinsed/ Rinsed/ Irrigated with Irrigated with Saline Saline -Foul Odor after Cleansing No No -Bioengineered Tissue No No -Bleeding Controlled with Pressure Pressure -Treatment Response Procedure Procedure Tolerated Well Tolerated Well -Offloading No No -Debridement - Subq, 1st 20sq cm Yes Yes -Debridement, SubQ, ea addt'l 20sq cm 2 1 or part thereof #6 Left Buttocks -Time 10:54 11:36 -Correct Patient Yes Yes -Correct Side, Site, Position Yes Yes -Correct Procedure Yes Yes -Procedure Performed Yes Yes -Type of Procedure Debridement Debridement -Clinical Debridement Subcutaneous Subcutaneous -Tissue Removed Subcutaneous Subcutaneous -Post Debridement (cm) - Length 0.5 0.4 -Post Debridement (cm) - Width 1.0 0.5 -Post Debridement (cm) - Depth 0.1 0.1 -Total Square (Post) (cm) 0.50 0.20 -Area of Debridement (cm) - Length 0.5 0.4 -Area of Debridement (cm) - Width 1.0 0.5 -Total Square (Area) (cm) 0.50 0.20 -Tunneling No No -Undermining/Tunneling No No -Circular Undermining No No -Wound/Ulcer Outcome Not Healed Not Healed -Ulcer Cleansing Rinsed/ Rinsed/ Irrigated with Irrigated with Saline Saline -Foul Odor after Cleansing No No -Bioengineered Tissue No No -Bleeding Controlled with Pressure Pressure -Treatment Response Procedure Procedure Tolerated Well Tolerated Well -Offloading No No -Debridement - Subq, 1st 20sq cm No No #5 Right Gluteal fold -Time 10:57 11:36 -Correct Patient Yes Yes -Correct Side, Site, Position Yes Yes -Correct Procedure Yes Yes -Procedure Performed Yes Yes -Type of Procedure Debridement Debridement -Clinical Debridement Subcutaneous Subcutaneous -Tissue Removed Subcutaneous Subcutaneous -Post Debridement (cm) - Length 2.0 2.5 -Post Debridement (cm) - Width 6.0 2.5 -Post Debridement (cm) - Depth 0.2 0.2 -Total Square (Post) (cm) 12.00 6.25 -Area of Debridement (cm) - Length 2.0 2.5 -Area of Debridement (cm) - Width 6.0 2.5 -Total Square (Area) (cm) 12.00 6.25 -Tunneling No No -Undermining/Tunneling No No -Circular Undermining No No -Wound/Ulcer Outcome Not Healed Not Healed -Ulcer Cleansing Rinsed/ Rinsed/ Irrigated with Irrigated with Saline Saline -Foul Odor after Cleansing No No -Bioengineered Tissue No No -Bleeding Controlled with Pressure Pressure -Treatment Response Procedure Procedure Tolerated Well Tolerated Well -Offloading No No -Debridement - Subq, 1st 20sq cm No No #4 Right Heel -Time 11:00 11:36 -Correct Patient Yes Yes -Correct Side, Site, Position Yes Yes -Correct Procedure Yes Yes -Procedure Performed Yes Yes -Type of Procedure Debridement Debridement -Clinical Debridement Subcutaneous Subcutaneous -Tissue Removed Subcutaneous Subcutaneous -Post Debridement (cm) - Length 3.5 3.5 -Post Debridement (cm) - Width 4.5 5.2 -Post Debridement (cm) - Depth 0.2 0.3 -Total Square (Post) (cm) 15.75 18.20 -Area of Debridement (cm) - Length 3.5 3.5 -Area of Debridement (cm) - Width 4.5 5.2 -Total Square (Area) (cm) 15.75 18.20 -Tunneling No No -Undermining/Tunneling No No -Circular Undermining No No -Wound/Ulcer Outcome Not Healed Not Healed -Ulcer Cleansing Rinsed/ Rinsed/ Irrigated with Irrigated with Saline Saline -Foul Odor after Cleansing No No -Bioengineered Tissue No No -Bleeding Controlled with Pressure Pressure -Treatment Response Procedure Procedure Tolerated Well Tolerated Well -Offloading No -Debridement - Subq, 1st 20sq cm No No #3 left Heel -Time 11:02 11:37 -Correct Patient Yes Yes -Correct Side, Site, Position Yes Yes -Correct Procedure Yes Yes -Procedure Performed Yes No -Type of Procedure Debridement -Clinical Debridement Subcutaneous -Tissue Removed Subcutaneous -Post Debridement (cm) - Length 1.0 1.5 -Post Debridement (cm) - Width 2.5 2.5 -Post Debridement (cm) - Depth 0.1 0.1 -Total Square (Post) (cm) 2.50 3.75 -Area of Debridement (cm) - Length 1.0 -Area of Debridement (cm) - Width 2.5 -Total Square (Area) (cm) 2.50 -Tunneling No No -Undermining/Tunneling No No -Circular Undermining No No -Wound/Ulcer Outcome Not Healed Not Healed -Ulcer Cleansing Rinsed/ Rinsed/ Irrigated with Irrigated with Saline Saline -Foul Odor after Cleansing No No -Bioengineered Tissue No No -Bleeding Controlled with Pressure Pressure -Treatment Response Procedure Procedure Tolerated Well Tolerated Well -Offloading No No -Debridement - Subq, 1st 20sq cm No #2 Right Forearm -Time 11:06 11:38 -Correct Patient Yes Yes -Correct Side, Site, Position Yes Yes -Correct Procedure Yes Yes -Procedure Performed No Yes -Type of Procedure Debridement -Clinical Debridement Subcutaneous -Tissue Removed Subcutaneous -Post Debridement (cm) - Length 2.3 -Post Debridement (cm) - Width 0.7 -Post Debridement (cm) - Depth 0.1 -Total Square (Post) (cm) 1.61 -Area of Debridement (cm) - Length 2.3 -Area of Debridement (cm) - Width 0.7 -Total Square (Area) (cm) 1.61 -Tunneling No -Undermining/Tunneling No -Circular Undermining No No -Wound/Ulcer Outcome Not Healed -Bioengineered Tissue No -Bleeding Controlled with Pressure -Treatment Response Procedure Tolerated Well -Debridement - Subq, 1st 20sq cm No #1 Left Forearm -Time 11:07 11:43 -Correct Patient Yes Yes -Correct Side, Site, Position Yes Yes -Correct Procedure Yes Yes -Procedure Performed Yes No -Type of Procedure Debridement -Clinical Debridement Subcutaneous -Tissue Removed Subcutaneous -Post Debridement (cm) - Length 0.2 0 -Post Debridement (cm) - Width 1.7 0 -Post Debridement (cm) - Depth 0.1 -Total Square (Post) (cm) 0.34 0 -Area of Debridement (cm) - Length 0.2 -Area of Debridement (cm) - Width 1.7 -Total Square (Area) (cm) 0.34 -Tunneling No -Undermining/Tunneling No -Circular Undermining No -Wound/Ulcer Outcome Not Healed Healed- Epithelialized -Ulcer Cleansing Rinsed/ Irrigated with Saline -Foul Odor after Cleansing No -Bioengineered Tissue No -Bleeding Controlled with Pressure -Treatment Response Procedure Tolerated Well -Offloading No -Debridement - Subq, 1st 20sq cm No Pain Scale: 0-10 Numeric Is Patient Pain Free? Yes Yes WC - Nurse 3 - General Ulcer D/C NN Start: 10/13/21 09:40 Freq: Status: Active Protocol: Activity Type Activity Date Activity User E-Sign Co-Sign Detail Recorded Client Recorded Date Recorded By Document 10/13/21 11:53 FISH [id number] 10/13/21 12:00 FISH 10/13/21 11:53 Wound Care Nurse 3 #7 Right Buttock -Ulcer Cleansing Rinsed/ Irrigated with Saline -Foul Odor after Cleansing No -Negative Pressure Wound Therapy N/A -Primary Dressing Applied Aquacel AG 4x4, Mepilex Border -Aquacel AG 4x4 2 -Mepilex Border 3 #6 Left Buttocks -Ulcer Cleansing Rinsed/ Irrigated with Saline -Foul Odor after Cleansing No -Negative Pressure Wound Therapy N/A -Primary Dressing Applied Aquacel AG 4x4, Mepilex Border -Aquacel AG 4x4 0 -Mepilex Border 0 #5 Right Gluteal fold -Ulcer Cleansing Rinsed/ Irrigated with Saline -Foul Odor after Cleansing No -Negative Pressure Wound Therapy N/A -Primary Dressing Applied Aquacel AG 4x4, Mepilex Border -Aquacel AG 4x4 0 -Mepilex Border 0 #4 Right Heel -Ulcer Cleansing Rinsed/ Irrigated with Saline -Foul Odor after Cleansing No -Negative Pressure Wound Therapy N/A -Primary Dressing Applied Aquacel AG 4x4, Mepilex Border -Aquacel AG 4x4 0 -Mepilex Border 0 #3 left Heel -Ulcer Cleansing Rinsed/ Irrigated with Saline -Foul Odor after Cleansing No -Negative Pressure Wound Therapy N/A -Primary Dressing Applied Aquacel AG 4x4, Mepilex Border -Aquacel AG 4x4 0 -Mepilex Border 0 #2 Right Forearm -Ulcer Cleansing Rinsed/ Irrigated with Saline -Foul Odor after Cleansing No -Negative Pressure Wound Therapy N/A -Other Dressing xeroform -Primary Dressing Covered/Secured with Dry Gauze & Roll Gauze, Secured with Tape #1 Left Forearm -Ulcer Cleansing Rinsed/ Irrigated with Saline -Foul Odor after Cleansing No -Negative Pressure Wound Therapy N/A -Other Dressing xeroform -Primary Dressing Covered/Secured with Dry Gauze & Roll Gauze, Secured with Tape Pain Scale: 0-10 Numeric Is Patient Pain Free? Yes WC - Visit Discharge Discharge Condition Stable Ambulatory Status Wheelchair Transportation Private Auto Accompanied by daughter and son Medication Reconcilliation completed & Yes provided to patient/care provider Clinical Summary of Care Provided Yes Additional Wound Wound debrided: Right buttocks pressure Laterality: Right Wound Grade/Stage: Stage II Type of Debridement: Excisional debridement Anesthesia Used: 5% Lidocaine Gel Depth: in the subcutaneous layer Percentage of wound debrided: 100 Instrument Used: 5mm curette Tissue Removed: Fibrin Severity: Limited To Skin Breakdown Bleeding Controlled with: Compression and gauze Patient tolerated procedure: Patient tolerated procedure well Additional Wound Wound debrided: Left buttocks pressure Wound Grade/Stage: Stage II Type of Debridement: Excisional debridement Anesthesia Used: 5% Lidocaine Gel Depth: Down to and including healthy tissue Percentage of wound debrided: 100 Instrument Used: 5mm curette Tissue Removed: Fibrin Severity: Limited To Skin Breakdown Amount of bleeding with debridement: Mild Bleeding Controlled with: Compression and gauze Patient tolerated procedure: Patient tolerated procedure well Additional Wound Wound debrided: Right forearm superficial skin tear Laterality: Right Type of Debridement: Excisional debridement Anesthesia Used: 5% Lidocaine Gel Depth: Down to and including healthy tissue Percentage of wound debrided: 100 Instrument Used: 3mm curette Tissue Removed: Fibrin Amount of bleeding with debridement: Mild Bleeding Controlled with: Compression and gauze Patient tolerated procedure: Patient tolerated procedure well Assessment/Plan Assessment/Plan (1) Decubitus ulcer of right heel, stage 3: CODE(S): L89.613 - Pressure ulcer of right heel, stage 3 PLAN: Wash right heel with antibacterial soap apply Aquacel Ag to area moistened cover with gauze and Peace daily Start antibiotic therapy (2) Decubitus ulcer of left heel, stage 2: CODE(S): L89.622 - Pressure ulcer of left heel, stage 2 PLAN: Wash left heel with padding and protecting (3) Decubitus ulcer of right buttock, stage 2: CODE(S): L89.312 - Pressure ulcer of right buttock, stage 2 PLAN: Wash right buttocks with antibacterial soap and apply Aquacel AG moistened ABD and tape every day (4) Right ischial pressure sore, stage 2: CODE(S): L89.312 - Pressure ulcer of right buttock, stage 2 PLAN: Wash ischial area with an type bacterial soap and apply Aquacel Ag moistened gauze and pad (5) Skin tear of left forearm without complication: CODE(S): S51.812A - Laceration without foreign body of left forearm, initial encounter QUALIFIERS: Encounter type: initial encounter Qualified Code(s): S51.812A - Laceration without foreign body of left forearm, initial encounter PLAN: Healed monitor (6) Skin tear of right forearm without complication: CODE(S): S51.811A - Laceration without foreign body of right forearm, initial encounter QUALIFIERS: Encounter type: initial encounter Qualified Code(s): S51.811A - Laceration without foreign body of right forearm, initial encounter PLAN: Wash right forearm with antibacterial soap apply Xeroform dressing with gauze over top Peace every day follow-up in 1 week (7) Infarction of left basal ganglia: CODE(S): I63.9 - Cerebral infarction, unspecified (8) Encephalopathy acute: CODE(S): G93.40 - Encephalopathy, unspecified (9) Overactive bladder: CODE(S): N32.81 - Overactive bladder (10) Alzheimer disease: CODE(S): G30.9 - Alzheimer's disease, unspecified; F02.80 - Dementia in other diseases classified elsewhere without behavioral disturbance
== END 2021-10-25 08:50 | disposition home or self-care (01) ==
LOC: WC 11:00
PROVIDERS: Visit Provider Nurse Practitioner
DX: L89.613 Pressure ulcer of right heel, stage 3 (principal); L89.622 Pressure ulcer of left heel, stage 2; L89.312 Pressure ulcer of right buttock, stage 2; M06.9 Rheumatoid arthritis, unspecified; G30.9 Alzheimer's disease, unspecified; I48.0 Paroxysmal atrial fibrillation; Z79.01 Long term (current) use of anticoagulants; G93.40 Encephalopathy, unspecified; I10 Essential (primary) hypertension; Z79.810 Long term (current) use of selective estrogen receptor modulators (SERMs); E78.5 Hyperlipidemia, unspecified; Z86.718 Personal history of other venous thrombosis and embolism; Z86.73 Personal history of transient ischemic attack (TIA), and cerebral infarction without residual deficits; N32.81 Overactive bladder; S51.811A Laceration without foreign body of right forearm, initial encounter; E03.9 Hypothyroidism, unspecified
CPT/HCPCS: 11042; 11045; 36415; 80053; 84443; 85025; 87070; 87075; 87077; 87186; 87205; 99203; G0463

== ENCOUNTER → 2021-12-23 | Outpatient (REF) | payer MEDICARE, SELFPAY ==
[2021-12-23 08:59] LABS: Absolute Lymphocyte Count 1.43 X10^3/uL (0.83-4.51); Basophil# 0.06 X10^3/uL; Basophil% 0.8 % (0-1); Eosinophil# 0.29 X10^3/uL; Eosinophils% 3.8 % (0-5); Hematocrit 32.9 % (37-47); Hemoglobin 10.4 g/dL (12.0-15.0); Lymphocyte # 1.43 X10^3/ul (0.83-4.51); Lymphocyte % 18.8 % (19-41); Mean Corp Hgb Conc 31.6 g/dL (32-36); Mean Corpuscular Hgb 29.6 pg (27.0-32.0); Mean Corpuscular Volume 93.7 fL (81-99); Mean Platelet Vol. 10.4 fl (6.2-12.0); Monocyte# 0.83 X10^3/uL; Monocyte% 10.9 % (0-10); NRBC Flagged by Analyzer 0 % (0-5); Neutrophil # 4.95 X10^3/uL (2.7-7.7); Neutrophil % 65.3 % (47-70); Platelet Count 465 K/mm3 (150-450); RBC Distribution Width CV 16.6 % (11.6-14.6); Red Blood Count 3.51 M/mm3 (4.2-5.4); White Blood Count 7.6 K/mm3 (4.4-11.0)
[2021-12-23 09:36] LABS: ALB/GLOB Ratio 0.7 RATIO (0.9-2.4); AST(SGOT) 23 U/L (15-37); Alanine Aminotransfer ALT/SGPT 21 U/L (13-56); Albumin, Serum 2.7 g/dL (3.2-5.0); Alkaline Phosphatase 67 U/L (45-117); Anion Gap 8 (5-15); BUN 16 mg/dL (7-18); Calcium,Total 8.8 mg/dL (8.5-10.1); Chloride 105 mmol/L (98-107); EST Glomerular Filtration Rate 72 mL/min (>60); Est Glom Filt Rate - Afr Amer 87 mL/min (>60); Globulin 3.8 g/dL (2.2-4.2); Glucose 114 mg/dL (74-106); Potassium 4.5 mmol/L (3.5-5.1); Protein, Total 6.5 g/dL (6.4-8.2); Sodium Level 136 mmol/L (136-145); Thyroid Stim Hormone (TSH) 7.57 uIU/mL (0.358-3.74)
== END ==
LOC: OLS.WCC 05:00
PROVIDERS: Visit Provider Family Medicine
DX: I10 Essential (primary) hypertension (principal); F03.90 Unspecified dementia, unspecified severity, without behavioral disturbance, psychotic disturbance, mood disturbance, and anxiety; I48.91 Unspecified atrial fibrillation; E78.5 Hyperlipidemia, unspecified; E03.9 Hypothyroidism, unspecified
CPT/HCPCS: 36415; 80053; 84443; 85025

== ENCOUNTER → 2022-03-22 | Outpatient (REF) | payer MEDICARE, SELFPAY ==
[2022-03-22 08:15] LABS: Absolute Lymphocyte Count 1.76 X10^3/uL (0.83-4.51); Absolute Neutrophil Count 4.2 X10^3/uL (2.0-7.7); Basophil# 0.04 X10^3/uL; Basophil% 0.6 % (0-1); Eosinophil# 0.51 X10^3/uL; Eosinophils% 7.1 % (0-5); Hematocrit 34.1 % (37-47); Hemoglobin 10.5 g/dL (12.0-15.0); Lymphocyte # 1.76 X10^3/ul (0.83-4.51); Lymphocyte % 24.4 % (19-41); Mean Corp Hgb Conc 30.8 g/dL (32-36); Mean Corpuscular Hgb 28.3 pg (27.0-32.0); Mean Corpuscular Volume 91.9 fL (81-99); Mean Platelet Vol. 11.2 fl (6.2-12.0); Monocyte# 0.68 X10^3/uL; Monocyte% 9.4 % (0-10); NRBC Flagged by Analyzer 0 % (0-5); Neutrophil % 58.4 % (47-70); Platelet Count 348 K/mm3 (150-450); RBC Distribution Width CV 14.6 % (11.6-14.6); RBC Distribution Width SD 48.8 fl (35.1-43.9); Red Blood Count 3.71 M/mm3 (4.2-5.4); White Blood Count 7.2 K/mm3 (4.4-11.0)
[2022-03-22 08:36] LABS: ALB/GLOB Ratio 0.7 RATIO (0.9-2.4); AST(SGOT) 23 U/L (15-37); Alanine Aminotransfer ALT/SGPT 16 U/L (13-56); Albumin, Serum 2.7 g/dL (3.2-5.0); Alkaline Phosphatase 81 U/L (45-117); Anion Gap 8 (5-15); BUN 28 mg/dL (7-18); BUN/Creat Ratio 34.8 RATIO (10-20); Calcium,Total 9.1 mg/dL (8.5-10.1); Chloride 109 mmol/L (98-107); EST Glomerular Filtration Rate 72 mL/min (>60); Est Glom Filt Rate - Afr Amer 87 mL/min (>60); Globulin 3.8 g/dL (2.2-4.2); Glucose 82 mg/dL (74-106); Potassium 4.4 mmol/L (3.5-5.1); Protein, Total 6.5 g/dL (6.4-8.2); Sodium Level 140 mmol/L (136-145); Thyroid Stim Hormone (TSH) 1.77 uIU/mL (0.358-3.74)
== END ==
LOC: OLS.WCC 05:00
PROVIDERS: Visit Provider Family Medicine
DX: I10 Essential (primary) hypertension (principal); F03.90 Unspecified dementia, unspecified severity, without behavioral disturbance, psychotic disturbance, mood disturbance, and anxiety; E03.9 Hypothyroidism, unspecified; Z79.899 Other long term (current) drug therapy
CPT/HCPCS: 36415; 80053; 84443; 85025

== ENCOUNTER → 2022-03-22 | Outpatient (REF) | payer SELFPAY | LOC: OLS.WCC 05:00 | PROVIDERS: Referring Provider Family Medicine; Visit Provider Family Medicine | DX: F03.90 Unspecified dementia, unspecified severity, without behavioral disturbance, psychotic disturbance, mood disturbance, and anxiety (principal); I10 Essential (primary) hypertension; E03.9 Hypothyroidism, unspecified | CPT/HCPCS: 36415; 80053; 84443; 85025 ==

== ENCOUNTER → 2022-06-22 | Outpatient (REF) | payer MEDICARE, SELFPAY ==
[2022-06-22 09:07] LABS: Absolute Lymphocyte Count 1.89 X10^3/uL (0.83-4.51); Absolute Neutrophil Count 4.1 X10^3/uL (2.0-7.7); Basophil# 0.04 X10^3/uL; Basophil% 0.6 % (0-1); Eosinophil# 0.46 X10^3/uL; Eosinophils% 6.4 % (0-5); Hematocrit 32.9 % (37-47); Hemoglobin 10.1 g/dL (12.0-15.0); Lymphocyte # 1.89 X10^3/ul (0.83-4.51); Lymphocyte % 26.4 % (19-41); Mean Corp Hgb Conc 30.7 g/dL (32-36); Mean Corpuscular Hgb 27.8 pg (27.0-32.0); Mean Corpuscular Volume 90.6 fL (81-99); Mean Platelet Vol. 10.9 fl (6.2-12.0); Monocyte# 0.61 X10^3/uL; Monocyte% 8.5 % (0-10); NRBC Flagged by Analyzer 0 % (0-5); Neutrophil # 4.14 X10^3/uL (2.7-7.7); Neutrophil % 57.8 % (47-70); Platelet Count 393 K/mm3 (150-450); RBC Distribution Width CV 14.6 % (11.6-14.6); Red Blood Count 3.63 M/mm3 (4.2-5.4); White Blood Count 7.2 K/mm3 (4.4-11.0)
[2022-06-22 09:37] LABS: ALB/GLOB Ratio 0.7 RATIO (0.9-2.4); AST(SGOT) 14 U/L (15-37); Alanine Aminotransfer ALT/SGPT 11 U/L (13-56); Albumin, Serum 2.5 g/dL (3.2-5.0); Alkaline Phosphatase 71 U/L (45-117); Anion Gap 7 (5-15); BUN 21 mg/dL (7-18); BUN/Creat Ratio 34.2 RATIO (10-20); Calcium,Total 8.8 mg/dL (8.5-10.1); Chloride 107 mmol/L (98-107); Creatinine, Serum 0.61 mg/dL (0.55-1.02); EST Glomerular Filtration Rate 98 mL/min (>60); Est Glom Filt Rate - Afr Amer 118 mL/min (>60); Globulin 3.6 g/dL (2.2-4.2); Glucose 83 mg/dL (74-106); Potassium 4.4 mmol/L (3.5-5.1); Protein, Total 6.1 g/dL (6.4-8.2); Sodium Level 141 mmol/L (136-145); Thyroid Stim Hormone (TSH) 0.44 uIU/mL (0.358-3.74)
== END ==
LOC: OLS.WCC 05:00
PROVIDERS: Visit Provider Family Medicine
DX: F03.90 Unspecified dementia, unspecified severity, without behavioral disturbance, psychotic disturbance, mood disturbance, and anxiety (principal); E03.9 Hypothyroidism, unspecified; Z79.899 Other long term (current) drug therapy
CPT/HCPCS: 36415; 80053; 84443; 85025

== ENCOUNTER → 2022-09-19 | Outpatient (REF) | payer MEDICARE, SELFPAY ==
[2022-09-19 09:26] LABS: Absolute Neutrophil Count 3.9 X10^3/uL (2.0-7.7); Basophil# 0.05 X10^3/uL; Basophil% 0.7 % (0-1); Eosinophil# 0.44 X10^3/uL; Eosinophils% 6.5 % (0-5); Hematocrit 34.6 % (37-47); Hemoglobin 11.2 g/dL (12.0-15.0); Mean Corp Hgb Conc 32.4 g/dL (32-36); Mean Corpuscular Hgb 27.9 pg (27.0-32.0); Mean Corpuscular Volume 86.3 fL (81-99); Mean Platelet Vol. 10.7 fl (6.2-12.0); Monocyte# 0.73 X10^3/uL; Monocyte% 10.8 % (0-10); NRBC Flagged by Analyzer 0 % (0-5); Neutrophil # 3.86 X10^3/uL (2.7-7.7); Neutrophil % 56.9 % (47-70); Platelet Count 381 K/mm3 (150-450); RBC Distribution Width CV 15.3 % (11.6-14.6); RBC Distribution Width SD 48.5 fl (35.1-43.9); Red Blood Count 4.01 M/mm3 (4.2-5.4); White Blood Count 6.8 K/mm3 (4.4-11.0)
[2022-09-19 09:48] LABS: ALB/GLOB Ratio 0.7 RATIO (0.9-2.4); AST(SGOT) 18 U/L (15-37); Alanine Aminotransfer ALT/SGPT 12 U/L (13-56); Albumin, Serum 2.6 g/dL (3.2-5.0); Alkaline Phosphatase 96 U/L (45-117); Anion Gap 6 (5-15); BUN 15 mg/dL (7-18); Calcium,Total 9.3 mg/dL (8.5-10.1); Chloride 109 mmol/L (98-107); Creatinine, Serum 0.54 mg/dL (0.55-1.02); EST Glomerular Filtration Rate 115 mL/min (>60); Est Glom Filt Rate - Afr Amer 139 mL/min (>60); Globulin 3.9 g/dL (2.2-4.2); Glucose 100 mg/dL (74-106); Potassium 4.1 mmol/L (3.5-5.1); Protein, Total 6.5 g/dL (6.4-8.2); Sodium Level 141 mmol/L (136-145); Thyroid Stim Hormone (TSH) 0.06 uIU/mL (0.358-3.74)
== END ==
LOC: OLS.WCC 05:00
PROVIDERS: Visit Provider Family Medicine
DX: F03.90 Unspecified dementia, unspecified severity, without behavioral disturbance, psychotic disturbance, mood disturbance, and anxiety (principal); I10 Essential (primary) hypertension; E03.9 Hypothyroidism, unspecified; Z79.899 Other long term (current) drug therapy
CPT/HCPCS: 36415; 80053; 84443; 85025

== ENCOUNTER → 2022-10-31 | Outpatient (REF) | payer MEDICARE, SELFPAY ==
[2022-10-31 09:42] LABS: Thyroid Stim Hormone (TSH) 0.25 uIU/mL (0.358-3.74)
== END ==
LOC: OLS.WCC 04:00
PROVIDERS: Referring Provider Family Medicine; Visit Provider Family Medicine
DX: E03.9 Hypothyroidism, unspecified (principal)
CPT/HCPCS: 36415; 84443

== ENCOUNTER → 2022-12-16 | Outpatient (REF) | payer MEDICARE, SELFPAY ==
[2022-12-16 09:29] LABS: Thyroid Stim Hormone (TSH) 0.45 uIU/mL (0.358-3.74)
== END ==
LOC: OLS.WCC 05:00
PROVIDERS: Visit Provider Family Medicine
DX: E03.9 Hypothyroidism, unspecified (principal); Z79.899 Other long term (current) drug therapy
CPT/HCPCS: 36415; 84443

== ENCOUNTER → 2023-03-22 | Outpatient (REF) | payer MEDICARE, SELFPAY ==
[2023-03-22 08:57] LABS: Basophil# 0.06 X10^3/uL; Basophil% 0.9 % (0-1); Eosinophil# 0.47 X10^3/uL; Eosinophils% 6.8 % (0-5); Hematocrit 34.4 % (37-47); Lymphocyte % 25.9 % (19-41); Mean Corpuscular Hgb 29.6 pg (27.0-32.0); Mean Corpuscular Volume 92.7 fL (81-99); Mean Platelet Vol. 11.1 fl (6.2-12.0); Monocyte# 0.67 X10^3/uL; Monocyte% 9.6 % (0-10); NRBC Flagged by Analyzer 0 % (0-5); Neutrophil # 3.95 X10^3/uL (2.7-7.7); Neutrophil % 56.7 % (47-70); Platelet Count 280 K/mm3 (150-450); RBC Distribution Width CV 14.1 % (11.6-14.6); RBC Distribution Width SD 47.9 fl (35.1-43.9); Red Blood Count 3.71 M/mm3 (4.2-5.4)
[2023-03-22 09:17] LABS: ALB/GLOB Ratio 0.7 RATIO (0.9-2.4); AST(SGOT) 14 U/L (15-37); Alanine Aminotransfer ALT/SGPT 11 U/L (13-56); Albumin, Serum 2.4 g/dL (3.2-5.0); Alkaline Phosphatase 81 U/L (45-117); Anion Gap 4 (5-15); BUN 20 mg/dL (7-18); BUN/Creat Ratio 29.7 RATIO (10-20); Calcium,Total 8.7 mg/dL (8.5-10.1); Chloride 110 mmol/L (98-107); Creatinine, Serum 0.67 mg/dL (0.55-1.02); EST Glomerular Filtration Rate 88 mL/min (>60); Est Glom Filt Rate - Afr Amer 106 mL/min (>60); Globulin 3.5 g/dL (2.2-4.2); Glucose 89 mg/dL (74-106); Potassium 4.2 mmol/L (3.5-5.1); Protein, Total 5.9 g/dL (6.4-8.2); Sodium Level 142 mmol/L (136-145)
== END ==
LOC: OLS.WCC 05:00
PROVIDERS: Visit Provider Family Medicine
DX: F03.90 Unspecified dementia, unspecified severity, without behavioral disturbance, psychotic disturbance, mood disturbance, and anxiety (principal); I10 Essential (primary) hypertension; E03.9 Hypothyroidism, unspecified; Z79.899 Other long term (current) drug therapy
CPT/HCPCS: 36415; 80053; 84443; 85025

== ENCOUNTER 2023-09-01 15:04 | Emergency (ER) | payer MEDICARE, SELFPAY ==
[2023-09-01] VITALS (7 sets, daily range): BP systolic 151–184; BP diastolic 47–98; PULSE 82–107; RESP 16–26; TEMP 36.4–37; O2SAT 91–99; BMI 32.3
--- NOTE | 2023-09-01 15:24 | EKG12_ITS ---
Test Reason : Blood Pressure : / mmHG Vent. Rate : 079 BPM Atrial Rate : 000 BPM P-R Int : 000 ms QRS Dur : 054 ms QT Int : 346 ms P-R-T Axes : 000 -31 034 degrees QTc Int : 396 ms Poor data quality, interpretation may be adversely affected Atrial fibrillation Left axis deviation Nonspecific ST and T wave abnormality Abnormal ECG Confirmed by Norm Bai ([id number]), general expeditor MARCUS REYNOSO ([id number]) on 09/04/2023 2:19:10 PM Referred By: Confirmed By:Norm Bai
--- NOTE | 2023-09-01 15:26 | ED.VIS.LOWEX ---
HPI History of Present Illness Chief Complaint: Lower Extremity Injury Informant: patient, family and EMS Narrative Narrative: 88-year-old female reportedly sustained a right distal femoral periprosthetic fracture this morning. Patient is currently at custodial has dementia. She has known atrial fibrillation and is on Eliquis. She reportedly had right knee replacement with Dr. Kiser (now retired). Patient is generally wheelchair-bound. [facility] Medical History Dementia DVT (deep venous thrombosis) History of blood clots Hyperlipidemia Hypertension Hypothyroidism Paroxysmal atrial fibrillation Rheumatoid arthritis Home Medications levothyroxine 200 mcg tablet 200 mcg PO DAILY thyroid 09/21/20 [History Last Taken 09/01/23] menthol 0.44 %-zinc oxide 20.6 % topical ointment (Calmoseptine) 1 applic topical TID skin protectant 07/07/21 [History Last Taken 07/12/21 05:40] polyethylene glycol 3350 17 gram oral powder packet 17 g PO DAILY CONSTIPATION 07/12/21 [History Last Taken 07/12/21 05:34] acetaminophen 325 mg tablet 650 mg PO Q4H PRN fever or pain 09/01/23 [History Last Taken 09/01/23] albuterol sulfate 0.63 mg/3 mL solution for nebulization 0.63 mg inhalation Q4H PRN shortness of breath or wheezing 09/01/23 [History Last Taken 08/19/23] apixaban 5 mg tablet (Eliquis) 5 mg PO BID 09/01/23 [History Last Taken 09/01/23] loratadine 10 mg tablet (Allerclear) 10 mg PO DAILY PRN allergy symptoms 09/01/23 [History Last Taken Unknown] losartan 50 mg tablet 50 mg PO DAILY 09/01/23 [History Last Taken Unknown] metoprolol tartrate 25 mg tablet 25 mg PO BID 09/01/23 [History Last Taken Unknown] oxycodone-acetaminophen 5 mg-325 mg tablet 1 tab PO Q6H PRN PRN pain 5 days #20 TABLETS 09/01/23 [Rx Last Taken Unknown] triamcinolone acetonide 0.1 % topical ointment 1 applic topical Q12H PRN itching 09/01/23 [History Last Taken Unknown] Allergy/AdvReac Type Severity Reaction Status Date / Time ertapenem [From Invanz] Allergy Rash Verified 09/01/23 15:05 Penicillins Allergy Unknown Verified 09/01/23 15:05 Family History Father CVA (cerebral vascular accident) Mother Cancer Breast. Surgical History H/O discectomy History of appendectomy History of embolic filter insertion S/P insertion of IVC (inferior vena caval) filter Status post right knee replacement Social History household members: none Smoking Status: Never smoker alcohol intake: never substance use type: does not use ROS ROS ED ROS Narrative Patient currently denying pain. Constitutional Constitutional ED: Denies chills, fever(s) or weight loss Eyes Eyes: Denies change in vision or diplopia ENT ENT ED: Denies ear pain, rhinorrhea or sore throat Cardiovascular Cardiovascular: Denies chest pain, orthopnea, palpitations or racing heartbeat Respiratory/Chest Respiratory/Chest: Denies cough, dyspnea or orthopnea Gastrointestinal Gastrointestinal: Denies abdominal pain, diarrhea, nausea or vomiting Genitourinary Genitourinary ED: Denies dysuria, hematuria or urinary frequency Musculoskeletal Musculoskeletal: Denies arthralgias, back pain, myalgias or neck pain Integumentary Denies abscess or rash Neurologic Neurologic: Denies headache(s) or weakness Psychiatric Psychiatric: Denies anxiety, depression, suicidal ideation or suicidal thoughts Endocrine Endocrinology: Denies polydipsia, polyphagia or polyuria Allergic/Immunologic Allergic/Immunologic ED: Denies mouth swelling, tongue swelling or urticaria EXAM Physical Exam Const Vital Signs: 09/01/23 15:05 09/01/23 16:05 09/01/23 17:00 Temperature 98.6 F Temperature Source Temporal Pulse Rate 95 82 99 Respiratory Rate 22 H 18 16 Blood Pressure 151/86 H 168/98 H 184/89 H Blood Pressure Mean 107 121 120 Pulse Ox 97 97 99 Oxygen Delivery Method Room Air Room Air Room Air 09/01/23 17:54 09/01/23 18:00 Temperature Temperature Source Pulse Rate 107 H 97 Respiratory Rate 26 H Blood Pressure 156/82 H 159/47 H Blood Pressure Mean 106 84 Pulse Ox 91 Oxygen Delivery Method Room Air Positive well nourished, well developed and obese General Appearance ED: well developed Nutritional Appearance: obese HEENT Reports normocephalic, head/scalp atraumatic and moist mucous membranes Eyes PERRL and EOMs intact bilaterally Neck no lymphadenopathy, supple and no JVD Resp normal respiratory effort and clear to auscultation bilaterally Cardio no murmurs Rhythm: abnormal rhythm irregularly irregular GI normal to inspection, nondistended, normoactive bowel sounds and non-tender Palpation: soft Back/Spine no CVA tenderness and normal ROM Extremity Extremity Narrative: Patient has swelling over the distal right femur. Neurovascular intact distal. General Extremety ED: Negative for edema General Extremity: Negative for edema Neuro CN's II-XII intact bilaterally Sensorium / Orientation: alert, oriented to person and oriented to place Motor Exam: strength 5/5 throughout Psych mental status grossly normal Mood & Affect: Negative for depressed or tearful Skin no rashes or lesions noted and no wounds MDM MDM MDM Narrative Medical decision making narrative: Preoperative labs were obtained. Hemoglobin 12 INR 1.2 PTT 78.5 creatinine 0.8. Magnapen interpretation of plain films of the right femur and right knee is nondisplaced fracture through the right distal femur with possible periprosthetic migration. CT was obtained and reviewed. Case was discussed with orthopedics (Dr. Calloway) as she has seen [facility] in the past. Dr. Calloway did review the images. We talked about different treatment options and I set forth those treatment options with the patient's family. At this point recommend to place her in a knee immobilizer. We talked about precautions. I will write for pain medication they will follow-up with Dr. Calloway in the office in 1 week. She is to be nonweightbearing which should be a problem as she is typically bed confined or in a wheelchair and only getting out of the bed via Sonny lift. History & Record Review Discussion w/independent historian: Patient and Family Lab Data Attestation: I reviewed the patient's lab results. Labs: Laboratory Results - last 24 hr 09/01/23 15:55 WBC 12.1 H RBC 3.99 L Hgb 12.0 Hct 37.3 MCV 93.5 MCH 30.1 MCHC 32.2 RDW Std Deviation 46.3 H RDW Coeff of Jackie 13.6 Plt Count 306 MPV 10.5 Immature Gran % (Auto) 0.400 Neut % (Auto) 68.9 Lymph % (Auto) 16.3 L Crane % (Auto) 9.3 Eos % (Auto) 4.4 Baso % (Auto) 0.7 Absolute Neuts (auto) 8.4 H Absolute Lymphs (auto) 1.98 Nucleated RBC % 0 PT 15.5 H INR 1.2 APTT 78.5 H Sodium 142 Potassium 4.6 Chloride 109 H Carbon Dioxide 26.0 Anion Gap 7 BUN 21 H Creatinine 0.80 Estim Creat Clear Calc 51.61 Est GFR (MDRD) Af Amer 87 Est GFR (MDRD) Non-Af 72 BUN/Creatinine Ratio 26.2 H Glucose 104 Calcium 9.1 Total Bilirubin 0.30 AST 17 ALT 15 Alkaline Phosphatase 86 Total Protein 7.1 Albumin 3.5 Globulin 3.6 Albumin/Globulin Ratio 1.0 Radiography Diagnostic Testing: Clinical Impression(s) from Imaging Studies Femur X-Ray 09/01/23 16:20 IMPRESSION: Fracture of the medial femoral epicondyle which is not completely visualized but associated with migration of the prosthesis. CT recommended Electronically Signed: Ras Wooten MD at 16:56 EDT , Knee X-Ray 09/01/23 16:20 IMPRESSION: Findings suspicious for acute fracture of the distal femur with lateral displacement of the prosthesis CT recommended for more definitive evaluation Electronically Signed: Ras Wooten MD at 16:52 EDT , Lower Extremity CT 09/01/23 16:55 IMPRESSION: Impacted supracondylar fracture fracture with most pronounced involvement of the lateral shaft with overlapping of fracture fragments. There is no appreciable displacement of the prosthesis which was suggested on the plain film study which was artifactual due to rotation of the patient Electronically Signed: Ras Wooten MD at 17:42 EDT , Discharge Plan Triage Chief Complaint: Lower Extremity Injury ED Provider: Arpit Jordan Dx/Rx/DC Orders Clinical Impression: Fracture of distal femur, Atrial fibrillation, Chronic anticoagulation, Factor V Leiden, Alzheimer disease Instructions: ED Fracture, Knee Prescriptions: New oxycodone-acetaminophen [oxycodone-acetaminophen] 5-325 mg tablet 1 tab PO Q6H PRN PRN (Reason: pain) 5 Days Qty: 20 0RF No Action levothyroxine 200 mcg tablet 200 mcg PO DAILY menthol-zinc oxide [Calmoseptine] 0.44-20.6 % ointment 1 applic topical TID Protocol: *Topical Application Instructions APPLICATION INSTRUCTIONS: coccyx polyethylene glycol 3350 17 gram Powder In Packet 17 g PO DAILY losartan 50 mg tablet 50 mg PO DAILY acetaminophen 325 mg tablet 650 mg PO Q4H PRN (Reason: fever or pain) metoprolol tartrate 25 mg tablet 25 mg PO BID albuterol sulfate 0.63 mg/3 mL solution for nebulization 0.63 mg inhalation Q4H PRN (Reason: shortness of breath or wheezing) loratadine [Allerclear] 10 mg tablet 10 mg PO DAILY PRN (Reason: allergy symptoms) triamcinolone acetonide 0.1 % ointment 1 applic topical Q12H PRN (Reason: itching) Eliquis 5 mg Tablet 5 mg PO BID Taper: Apixaban VTE Treatment 10 mg TWICE A DAY for 7 Days and 0 Hour 5 mg TWICE A DAY for 30 Days and 0 Hour Primary Care Provider: Melvin Weber Referrals: Domingo Calloway MD [Med Staff - Active Staff] - 1 Week Melvin Weber [Primary Care Provider] - Activity Restrictions/Additional Instructions: Leg is to be in the immobilizer with the middle of the immobilizer over the knee. Please pay particular attention to the skin exam and the metal rods which may need extra padding to prevent skin breakdown Ice 20-minute sessions 5 times a day for the first 3 days Assess distal leg for adequate circulation multiple times per day Please follow-up with orthopedics in 1 week No weightbearing allowed Disposition Disposition: Home, Self Care
[2023-09-01] MEDS: Morphine 2 MG/ML Syringe IV ×2 (16:09→17:55)
[2023-09-01] MEDS: Ondansetron 4 MG/2 ML Vial IV (16:09)
[2023-09-01 16:18] LABS: Absolute Lymphocyte Count 1.98 X10^3/uL (0.83-4.51); Absolute Neutrophil Count 8.4 X10^3/uL (2.0-7.7); Basophil# 0.08 X10^3/uL; Basophil% 0.7 % (0-1); Eosinophil# 0.53 X10^3/uL; Eosinophils% 4.4 % (0-5); Hematocrit 37.3 % (37-47); Lymphocyte # 1.98 X10^3/ul (0.83-4.51); Lymphocyte % 16.3 % (19-41); Mean Corp Hgb Conc 32.2 g/dL (32-36); Mean Corpuscular Hgb 30.1 pg (27.0-32.0); Mean Corpuscular Volume 93.5 fL (81-99); Mean Platelet Vol. 10.5 fl (6.2-12.0); Monocyte# 1.13 X10^3/uL; Monocyte% 9.3 % (0-10); NRBC Flagged by Analyzer 0 % (0-5); Neutrophil # 8.36 X10^3/uL (2.7-7.7); Neutrophil % 68.9 % (47-70); Platelet Count 306 K/mm3 (150-450); RBC Distribution Width CV 13.6 % (11.6-14.6); RBC Distribution Width SD 46.3 fl (35.1-43.9); Red Blood Count 3.99 M/mm3 (4.2-5.4); White Blood Count 12.1 K/mm3 (4.4-11.0)
--- NOTE | 2023-09-01 16:20 | RAD_ITS ---
STUDY: X-RAY - RIGHT FEMUR REASON FOR STUDY: Female, 88 years old. distal femur fracture TECHNIQUE: 4 view(s) of the femur. COMPARISON: None. FINDINGS: There is an acute minimally displaced fracture of the medial femoral epicondyle in association with apparent lateral migration of the prosthesis. Suprapatellar effusion is noted.. Degenerative changes of right hip. RAD/Femur Min 2 Views IMPRESSION: Fracture of the medial femoral epicondyle which is not completely visualized but associated with migration of the prosthesis. CT recommended Electronically Signed: Ras Wooten MD at 16:56 EDT ,
--- NOTE | 2023-09-01 16:20 | RAD_ITS ---
STUDY: X-RAY - RIGHT KNEE REASON FOR EXAM: Female, 88 years old. periprosthetic fracture TECHNIQUE: 2 view(s) of the knee. COMPARISON: None. FINDINGS: Knee prosthesis is noted. On the AP view there appears to be displacement of the lateral aspect of the femoral compartment of the prosthesis on the confines of the bone suspicious for fracture however. This is suggested but not well visualized on lateral projection. There is a suprapatellar bursal effusion. RAD/Knee 1 or 2 Views IMPRESSION: Findings suspicious for acute fracture of the distal femur with lateral displacement of the prosthesis CT recommended for more definitive evaluation Electronically Signed: Ras Wooten MD at 16:52 EDT ,
[2023-09-01 16:24] LABS: International Normalized Ratio 1.2; Prothrombin Time (Protime)PT. 15.5 SECONDS (11.7-14.9)
[2023-09-01 16:26] LABS: Partial Thromboplast Time 78.5 Seconds (24.1-36.2)
[2023-09-01 16:46] LABS: AST(SGOT) 17 U/L (15-37); Alanine Aminotransfer ALT/SGPT 15 U/L (13-56); Albumin, Serum 3.5 g/dL (3.2-5.0); Alkaline Phosphatase 86 U/L (45-117); Anion Gap 7 (5-15); BUN 21 mg/dL (7-18); BUN/Creat Ratio 26.2 RATIO (10-20); Calcium,Total 9.1 mg/dL (8.5-10.1); Chloride 109 mmol/L (98-107); EST Glomerular Filtration Rate 72 mL/min (>60); Est Glom Filt Rate - Afr Amer 87 mL/min (>60); Estimated Creatinine Clearance 51.61 ml/min; Globulin 3.6 g/dL (2.2-4.2); Glucose 104 mg/dL (74-106); Potassium 4.6 mmol/L (3.5-5.1); Protein, Total 7.1 g/dL (6.4-8.2); Sodium Level 142 mmol/L (136-145)
--- NOTE | 2023-09-01 16:55 | CT_ITS ---
CT RIGHT LOWER EXTREMITY WITH 3-D IMAGING CLINICAL INDICATION: abnormal knee xray -- please see September 01, 2023 TECHNIQUE: Axial CT images of the RIGHT lower extremity was performed IV contrast material. Coronal and sagittal reformats were provided. RADIATION DOSAGE (If Supplied By Facility): CTDIvol = ( 15.35 ) mGy, DLP = ( 427.90 ) mGycm COMPARISON: Knee x-rays September 01, 2023 FINDINGS: Bones: Acute impacted supracondylar fracture of the knee with mild overlapping of fracture fragments with most severe involvement of the lateral shaft.. There is no definitive evidence for displacement of the prosthesis No lytic or blastic osseous masses. Soft Tissues: Suboptimal visualization of soft tissue due to artifact although there is a suprapatellar bursal effusion . CT/Extremity Lower without Contra IMPRESSION: Impacted supracondylar fracture fracture with most pronounced involvement of the lateral shaft with overlapping of fracture fragments. There is no appreciable displacement of the prosthesis which was suggested on the plain film study which was artifactual due to rotation of the patient Electronically Signed: Ras Wooten MD at 17:42 EDT ,
[2023-09-01] MEDS: LORazepam 2 MG/ML Syringe 0.5 MG IV (17:56)
== END 2023-09-01 19:22 | disposition home or self-care (01) ==
PROVIDERS: Emergency Provider Emergency Medicine; Visit Provider Emergency Medicine
DX: S72.451A Displaced supracondylar fracture without intracondylar extension of lower end of right femur, initial encounter for closed fracture (principal); G30.9 Alzheimer's disease, unspecified; F02.80 Dementia in other diseases classified elsewhere, unspecified severity, without behavioral disturbance, psychotic disturbance, mood disturbance, and anxiety; I48.0 Paroxysmal atrial fibrillation; Z99.3 Dependence on wheelchair; Z79.01 Long term (current) use of anticoagulants; I10 Essential (primary) hypertension; E78.5 Hyperlipidemia, unspecified; E03.9 Hypothyroidism, unspecified; Z79.890 Hormone replacement therapy; Z79.899 Other long term (current) drug therapy; E66.9 Obesity, unspecified; D68.51 Activated protein C resistance; Z96.651 Presence of right artificial knee joint; Z86.718 Personal history of other venous thrombosis and embolism; Y92.129 Unspecified place in nursing home as the place of occurrence of the external cause
CPT/HCPCS: 73552; 73560; 73700; 80053; 85025; 85610; 85730; 93005; 96374; 96375; 96376; 99285; A4216; J2405

== ENCOUNTER → 2023-09-18 | Outpatient (REF) | payer MEDICARE, SELFPAY ==
[2023-09-18 09:22] LABS: Absolute Lymphocyte Count 1.86 X10^3/uL (0.83-4.51); Absolute Neutrophil Count 3.9 X10^3/uL (2.0-7.7); Basophil# 0.06 X10^3/uL; Basophil% 0.9 % (0-1); Eosinophil# 0.43 X10^3/uL; Eosinophils% 6.3 % (0-5); Hematocrit 33.4 % (37-47); Hemoglobin 10.6 g/dL (12.0-15.0); Lymphocyte # 1.86 X10^3/ul (0.83-4.51); Lymphocyte % 27.2 % (19-41); Mean Corp Hgb Conc 31.7 g/dL (32-36); Mean Corpuscular Hgb 30.5 pg (27.0-32.0); Mean Corpuscular Volume 96.3 fL (81-99); Mean Platelet Vol. 10.2 fl (6.2-12.0); Monocyte# 0.53 X10^3/uL; Monocyte% 7.8 % (0-10); NRBC Flagged by Analyzer 0 % (0-5); Neutrophil # 3.93 X10^3/uL (2.7-7.7); Neutrophil % 57.5 % (47-70); Platelet Count 464 K/mm3 (150-450); RBC Distribution Width CV 13.7 % (11.6-14.6); RBC Distribution Width SD 47.8 fl (35.1-43.9); Red Blood Count 3.47 M/mm3 (4.2-5.4); White Blood Count 6.8 K/mm3 (4.4-11.0)
[2023-09-18 10:02] LABS: ALB/GLOB Ratio 0.8 RATIO (0.9-2.4); AST(SGOT) 17 U/L (15-37); Alanine Aminotransfer ALT/SGPT 11 U/L (13-56); Albumin, Serum 2.7 g/dL (3.2-5.0); Alkaline Phosphatase 123 U/L (45-117); Anion Gap 4 (5-15); BUN 17 mg/dL (7-18); BUN/Creat Ratio 23.6 RATIO (10-20); Calcium,Total 8.7 mg/dL (8.5-10.1); Chloride 110 mmol/L (98-107); Creatinine, Serum 0.72 mg/dL (0.55-1.02); EST Glomerular Filtration Rate 81 mL/min (>60); Est Glom Filt Rate - Afr Amer 98 mL/min (>60); Globulin 3.4 g/dL (2.2-4.2); Glucose 93 mg/dL (74-106); Potassium 4.2 mmol/L (3.5-5.1); Protein, Total 6.1 g/dL (6.4-8.2); Sodium Level 141 mmol/L (136-145); Thyroid Stim Hormone (TSH) 3.82 uIU/mL (0.358-3.74)
== END ==
LOC: OLS.WCC 05:00
PROVIDERS: Visit Provider Family Medicine
DX: F03.90 Unspecified dementia, unspecified severity, without behavioral disturbance, psychotic disturbance, mood disturbance, and anxiety (principal); I10 Essential (primary) hypertension; E03.9 Hypothyroidism, unspecified; Z79.899 Other long term (current) drug therapy
CPT/HCPCS: 36415; 80053; 84443; 85025

== ENCOUNTER 2023-12-07 16:39 | Inpatient (IN) | payer MEDICARE, SELFPAY ==
[2023-12-07] VITALS (11 sets, daily range): BP systolic 101–134; BP diastolic 49–71; PULSE 95–109; RESP 15–20; TEMP 37.2–37.9; O2SAT 85–100; BMI 30.3; BMI 29.1
--- NOTE | 2023-12-07 16:56 | EKG12_ITS ---
Test Reason : Blood Pressure : / mmHG Vent. Rate : 107 BPM Atrial Rate : 000 BPM P-R Int : 000 ms QRS Dur : 070 ms QT Int : 348 ms P-R-T Axes : 000 -07 074 degrees QTc Int : 464 ms Atrial fibrillation with rapid ventricular response with premature ventricular or aberrantly conducte d complexes Low voltage QRS Nonspecific ST and T wave abnormality Abnormal ECG Confirmed by ARCELIA LEYVA, MELISA ([id number]), image editor RONY QURESHI ([id number]) on 12/12/2023 1:58:47 PM Referred By: NIKA Confirmed By:MANE PANIAGUA MD
--- NOTE | 2023-12-07 16:57 | CT_ITS ---
STUDY: CT BRAIN WITHOUT CONTRAST REASON FOR EXAM: Female, 88 years old. ams RADIATION DOSAGE (If Supplied By Facility): CTDIvol = ( 44.99 ) mGy, DLP = ( 846.73 ) mGycm TECHNIQUE: Transaxial CT imaging of the brain was performed without administration of intravenous contrast material. Individualized dose optimization techniques were used for this CT. COMPARISON: July 05, 2021 FINDINGS: Normal soft tissue structures. Normal calvarium. Calcific plaquing of the cavernous carotids. Mild atrophy and periventricular white matter ischemic changes.. . Old left lacunar infarct. Old deep white matter infarct in the right frontal temporal region.. Normal brainstem. Normal cerebellum. There is no intracranial hemorrhage. There are no findings of an acute ischemic infarction. Minor mucosal thickening of the right maxillary and bilateral ethmoid air cells.. Postsurgical changes of the orbits CT/Brain/Head without Contrast IMPRESSION: Atrophy and periventricular white matter ischemic changes. Old left lacunar infarct. No acute bleed. If concern for acute infarct MRI recommended. Electronically Signed: Ras Wooten MD at 19:05 EDT ,
--- NOTE | 2023-12-07 16:57 | CT_ITS ---
STUDY: CT CERVICAL SPINE WITHOUT CONTRAST REASON FOR EXAM: Female, 88 years old. trauma RADIATION DOSAGE (If Supplied By Facility): CTDIvol = ( 22.90 ) mGy, DLP = ( 461.86 ) mGycm TECHNIQUE: High resolution transaxial imaging was performed without contrast material. Sagittal and coronal images were reconstructed. Individualized dose optimization techniques were used for this CT. COMPARISON: None FINDINGS: Normal craniovertebral junction. Normal anterior atlantoaxial articulation. Normal odontoid process. Normal cervical lordosis. Normal vertebral bodies and posterior osseous elements. C2-3: Normal endplates. Normal disc height and morphology. Normal central canal and intervertebral neuroforamina. C3-4: Normal endplates. Normal disc height and morphology. Normal central canal and intervertebral neuroforamina. C4-5: Narrowed disc space and minor bulging disc osteophyte complex.. Mild narrowing of the central canal. Moderate to severe left neural foraminal stenosis and severe narrowing on the right secondary to bony hypertrophy C5-6: Narrowed disc space and minor endplate spurring.. Normal central canal . Mild bilateral neural foraminal encroachment secondary to bony hypertrophy C6-7: Normal endplates. Normal disc height and morphology. Normal central canal and intervertebral neuroforamina. C7-T1: Normal endplates. Normal disc height and morphology. Normal central canal and intervertebral neuroforamina. Normal visualized soft tissue structures. CT/Spine Cervical without Contras IMPRESSION: No evidence for acute fracture or subluxation. Spondylosis. Most severe at C4-5. Electronically Signed: Ras Wooten MD at 19:08 EDT ,
[2023-12-07 17:04] LABS: Absolute Lymphocyte Count 2.18 X10^3/uL (0.83-4.51); Absolute Neutrophil Count 5.9 X10^3/uL (2.0-7.7); Basophil# 0.06 X10^3/uL; Basophil% 0.6 % (0-1); Eosinophil# 0.13 X10^3/uL; Eosinophils% 1.4 % (0-5); Hematocrit 27.2 % (37-47); Hemoglobin 8.6 g/dL (12.0-15.0); Lymphocyte # 2.18 X10^3/ul (0.83-4.51); Lymphocyte % 22.8 % (19-41); Mean Corp Hgb Conc 31.6 g/dL (32-36); Mean Corpuscular Hgb 29.9 pg (27.0-32.0); Mean Corpuscular Volume 94.4 fL (81-99); Monocyte# 1.26 X10^3/uL; Monocyte% 13.2 % (0-10); NRBC Flagged by Analyzer 0 % (0-5); Neutrophil # 5.89 X10^3/uL (2.7-7.7); Neutrophil % 61.7 % (47-70); Platelet Count 279 K/mm3 (150-450); RBC Distribution Width CV 14.9 % (11.6-14.6); RBC Distribution Width SD 51.8 fl (35.1-43.9); Red Blood Count 2.88 M/mm3 (4.2-5.4); White Blood Count 9.6 K/mm3 (4.4-11.0)
[2023-12-07 17:23] LABS: Mucous, Urine 0 SEEN /hpf (<or=2+)
[2023-12-07 17:24] LABS: Anion Gap 3 (5-15); BUN 24 mg/dL (7-18); BUN/Creat Ratio 28.2 RATIO (10-20); Calcium,Total 8.7 mg/dL (8.5-10.1); Chloride 110 mmol/L (98-107); Creatinine, Serum 0.85 mg/dL (0.55-1.02); EST Glomerular Filtration Rate 67 mL/min (>60); Est Glom Filt Rate - Afr Amer 81 mL/min (>60); Estimated Creatinine Clearance 46.87 ml/min; Glucose 120 mg/dL (74-106); Potassium 4.1 mmol/L (3.5-5.1); Sodium Level 143 mmol/L (136-145); Troponin-I HS 8 pg/mL (3.0-54.0)
[2023-12-07 17:25] LABS: Color, Urine Yellow (Yellow); Glucose, Dipstick Normal (Normal); Ketone-Dipstick 5 mg/dl (Negative); Leukocyte Esterase-Dipstick 500 /ul (Negative); Nitrite-Dipstick Negative (Negative); Occult Blood-Urine 25 /ul (Negative); Protein-Dipstick 30 mg/dl (Negative); Specific Gravity, Urine 1.015 (1.002-1.030); Urine Bilirubin Dipstick Negative (Negative); Urine Clarity Cloudy (Clear); Urine Urobilinogen 4 mg/dl (Normal)
[2023-12-07 17:31] LABS: Bacteria 4+ /hpf (None Seen); Red Blood Cells-Urine 0-5 SEEN /hpf (0-5); Squamous Epithelial Cells - UA 0-5 SEEN /hpf (5-10); White Blood Cells 50-100 SEEN /hpf (0-5)
--- NOTE | 2023-12-07 17:40 | ED.VIS.LOWEX ---
HPI History of Present Illness Chief Complaint: Lower Extremity Injury Narrative Narrative: 80-year-old female with dementia presenting with left hip fracture. She previously fracture right distal femur and in the senior care for this and told the family that she is likely not anticoagulated to survive the surgery for this. He recommended that they just keep her comfortable. Apparently sometime in the last day or so the senior care told her [id number] that they had a soft drama and the patient fell out of bed or out of the Sonny. She was also told that the patient was in the wheelchair after this and was fairly unresponsive and drooling. She is not exactly sure about the timeline. Patient is diagnosed with a hip fracture of the right hip. Patient's [id number] states that her baseline is pretty much nonresponsive bedbound. She does state that sometimes he talks but she cannot communicate. [facility] Medical History Rheumatoid arthritis Dementia DVT (deep venous thrombosis) History of blood clots Hypothyroidism Hypertension Hyperlipidemia Paroxysmal atrial fibrillation Home Medications ?Medication ?Instructions ?Recorded ?Last Taken ?Type levothyroxine 200 mcg tablet 200 mcg PO DAILY thyroid 09/21/20 09/01/23 History menthol 0.44 %-zinc oxide 20.6 % 1 applic topical TID skin 07/07/21 07/12/21 05:40 History topical ointment (Calmoseptine) protectant polyethylene glycol 3350 17 gram 17 g PO DAILY PRN CONSTIPATION 07/12/21 07/12/21 05:34 History oral powder packet acetaminophen 325 mg tablet 650 mg PO Q4H PRN fever or pain 09/01/23 09/01/23 History albuterol sulfate 0.63 mg/3 mL 0.63 mg inhalation Q4H PRN 09/01/23 08/19/23 History solution for nebulization shortness of breath or wheezing apixaban 5 mg tablet (Eliquis) 5 mg PO BID 09/01/23 09/01/23 History loratadine 10 mg tablet 10 mg PO DAILY PRN allergy symptoms 09/01/23 Unknown History (Allerclear) losartan 50 mg tablet 50 mg PO DAILY 09/01/23 Unknown History metoprolol tartrate 25 mg tablet 25 mg PO BID 09/01/23 Unknown History oxycodone-acetaminophen 5 mg-325 1 tab PO Q6H PRN PRN pain 5 days 09/01/23 Unknown Rx mg tablet #20 TABLETS triamcinolone acetonide 0.1 % 1 applic topical Q12H PRN itching 09/01/23 Unknown History topical ointment acetaminophen 650 mg rectal 650 mg RI Q4H 12/07/23 Unknown History suppository furosemide 20 mg tablet 20 mg PO DAILY 12/07/23 Unknown History hyoscyamine sulfate 0.125 mg 0.125 mg PO Q2H PRN congestion 12/07/23 Unknown History tablet (Levsin) morphine concentrate 10 mg/0.5 mL 10 mg PO Q2H PRN PRN dyspnea 12/07/23 Unknown History oral syringe (FOR ORAL USE ONLY) Allergy/AdvReac Type Severity Reaction Status Date / Time ertapenem (From [facility]) Allergy Rash Verified 12/07/23 16:47 Penicillins Allergy Unknown Verified 12/07/23 16:47 Family History Father CVA (cerebral vascular accident) Mother Cancer Breast. Surgical History History of embolic filter insertion S/P insertion of IVC (inferior vena caval) filter Status post right knee replacement H/O discectomy History of appendectomy Social History household members: none Smoking Status: Never smoker alcohol intake: never substance use type: does not use ROS ROS ED Review of Systems ROS Unobtainable: due to mental condition and due to mental status EXAM Physical Exam Const Vital Signs: 12/07/23 16:42 12/07/23 16:42 12/07/23 18:24 Temperature 99.6 F H 99.6 F H 99.2 F H Temperature Source Temporal Axillary Temporal Pulse Rate 101 H 101 H 103 H Respiratory Rate 16 16 20 H Blood Pressure 107/52 L 107/52 L 118/66 Blood Pressure Mean 70 70 83 Pulse Ox 96 96 97 Oxygen Delivery Method Room Air Room Air Oxygen Flow Rate (L/min) 12/07/23 18:46 12/07/23 19:00 12/07/23 19:16 Temperature 99 F 99.8 F H Temperature Source Axillary Axillary Pulse Rate 109 H 106 H Respiratory Rate 18 18 Blood Pressure 129/71 H 126/56 H Blood Pressure Mean 90 79 Pulse Ox 95 100 85 Oxygen Delivery Method Room Air Nasal Cannula Room Air Oxygen Flow Rate (L/min) 2 12/07/23 19:22 12/07/23 20:00 Temperature 100.2 F H Temperature Source Axillary Pulse Rate 103 H Respiratory Rate 16 Blood Pressure 101/54 L Blood Pressure Mean 69 Pulse Ox 100 100 Oxygen Delivery Method Nasal Cannula Nasal Cannula Oxygen Flow Rate (L/min) 2 2 Positive well nourished General Appearance ED: NAD HEENT Reports moist mucous membranes normocephalic and atraumatic Eyes PERRL Neck full ROM Chest Wall inspection of chest normal Resp normal respiratory effort and no retractions Auscultation: Negative for rales, rhonchi or wheezes Cardio regular rate and regular rhythm Extremity Extremity Narrative: Tenderness palpation right greater than right femur. Neuro CN's II-XII intact bilaterally Sensorium / Orientation: alert Motor Exam: general weakness Psych Psych Narrative: Confused MDM MDM MDM Narrative Medical decision making narrative: 88-year-old dementia patient with history of distal femur fracture on the right now presenting with right hip fracture. Initially her doctor at the senior care told her family that she would not be a candidate for surgery. The [id number] is on sure why he sent her to the emergency room if she was a poor candidate. At this point she wants to have her evaluated. Apparently the patient was dropped and is on Eliquis and had an unresponsive episode at the senior care where she was drooling. [id number] feels like currently is at her baseline. Differential includes subdural hematoma, subarachnoid hemorrhage, epidural hematoma. C-spine fracture, hip fracture, ankle fracture, dehydration, anemia, electrolyte abnormalities, ACS, UTI. CBC showed normal white blood cell count. Hemoglobin 8.6. Patient with history of anemia. Renal function and electrolytes within normal limits. High-sensitivity troponin is 8. Shows A-fib at a rate of 104 bpm. No evidence of ischemia. This is on my interpretation. Chest x-ray interpreted by myself shows no acute process. Radiologist interprets this and agrees. CT of the brain and cervical spine were negative for any acute findings. Unable to obtain many views of the hip and knee secondary to pain. X-ray of the pelvis shows a right intertrochanteric fracture. X-rays of the distal femur show no acute fracture. Discussed the case with Dr. Domingo Calloway who reviewed her imaging and her history. He spoke with the family and the family wants to go ahead with the hip replacement. Patient also found to have a UTI just given a gram of Rocephin. Urine culture was sent. She has history of multidrug-resistant organisms. Salgado catheter was placed. And dark urine patient discussed with hospitalist for admission. Impression: 1. Fall 2. Right intertrochanteric hip fracture 3. UTI Lab Data Attestation: I reviewed the patient's lab results. Labs: Laboratory Results - last 24 hr 12/07/23 12/07/23 16:50 17:19 WBC 9.6 RBC 2.88 L Hgb 8.6 L Hct 27.2 L MCV 94.4 MCH 29.9 MCHC 31.6 L RDW Std Deviation 51.8 H RDW Coeff of Jackie 14.9 H Plt Count 279 MPV 10.0 Immature Gran % (Auto) 0.300 Neut % (Auto) 61.7 Lymph % (Auto) 22.8 [place] % (Auto) 13.2 H Eos % (Auto) 1.4 Baso % (Auto) 0.6 Absolute Neuts (auto) 5.9 Absolute Lymphs (auto) 2.18 Nucleated RBC % 0 Sodium 143 Potassium 4.1 Chloride 110 H Carbon Dioxide 30.0 Anion Gap 3 L BUN 24 H Creatinine 0.85 Estim Creat Clear Calc 46.87 Est GFR (MDRD) Af Amer 81 Est GFR (MDRD) Non-Af 67 BUN/Creatinine Ratio 28.2 H Glucose 120 H Calcium 8.7 Troponin I High Sens 8 Urine Color Yellow Urine Clarity Cloudy Urine pH 7.0 Ur Specific [place] 1.015 Urine Protein 30 H Urine Glucose (UA) Normal Urine Ketones 5 H Urine Occult Blood 25 H Urine Nitrite Negative Urine Bilirubin Negative Urine Urobilinogen 4 H Ur Leukocyte Esterase 500 H Urine RBC 0-5 SEEN Urine WBC 50-100 SEEN Ur Squamous Epith Cells 0-5 SEEN Urine Bacteria 4+ Urine Mucus 0 SEEN Radiography Diagnostic Testing: Clinical Impression(s) from Imaging Studies Brain CT 12/07/23 16:57 IMPRESSION: Atrophy and periventricular white matter ischemic changes. Old left lacunar infarct. No acute bleed. If concern for acute infarct MRI recommended. Electronically Signed: Ras Wooten MD at 19:05 EDT , Cervical Spine CT 12/07/23 16:57 IMPRESSION: No evidence for acute fracture or subluxation. Spondylosis. Most severe at C4-5. Electronically Signed: Ras Wooten MD at 19:08 EDT , Chest X-Ray 12/07/23 17:55 IMPRESSION: ASHD. No acute cardiopulmonary pathology Electronically Signed: Ras Wooten MD at 19:12 EDT , Femur X-Ray 12/07/23 17:55 IMPRESSION: Acute intertrochanteric fracture of the right hip Electronically Signed: Ras Wooten MD at 19:10 EDT , Pelvis X-Ray 12/07/23 17:55 IMPRESSION: Acute right hip fracture and bilateral degenerative changes of the hips. No evidence for acute left hip or pelvic fracture Electronically Signed: Ras Wooten MD at 19:11 EDT , Discharge Plan Disposition Disposition: Acute Care Hospital [facility] Discharge Date/Time: 12/07/23 21:26
--- NOTE | 2023-12-07 17:55 | RAD_ITS ---
STUDY: X-RAY - RIGHT FEMUR REASON FOR STUDY: Female, 88 years old. pain TECHNIQUE: 3 view(s) of the femur. COMPARISON: None. FINDINGS: Acute impacted intertrochanteric fracture with overlapping and varus angulation of fracture fragments . Narrowed hip joint. Stable appearance to knee prosthesis. RAD/Femur Min 2 Views IMPRESSION: Acute intertrochanteric fracture of the right hip Electronically Signed: Ras Wooten MD at 19:10 EDT ,
--- NOTE | 2023-12-07 17:55 | RAD_ITS ---
STUDY: X-RAY - PELVIS AND RIGHT HIP REASON FOR EXAM: Female, 88 years old. hip fracture TECHNIQUE: 1 views of the pelvis and hip. COMPARISON: None. FINDINGS: There is a non-specific bowel gas pattern. Normal visualized soft tissue structures. Normal bilateral iliac wings, sacroiliac joints and visualized sacrum. Normal bilateral superior and inferior pubic rami. Normal pubic symphysis. Normal bilateral ischial tuberosities. Acute impacted intertrochanteric fracture of the right hip with overlapping and varus angulation of fracture fragments.. Diffusely narrowed joint spaces are noted bilaterally. RAD/Pelvis 1 or 2 Views IMPRESSION: Acute right hip fracture and bilateral degenerative changes of the hips. No evidence for acute left hip or pelvic fracture Electronically Signed: Ras Wooten MD at 19:11 EDT ,
--- NOTE | 2023-12-07 17:55 | RAD_ITS ---
STUDY: X-RAY CHEST REASON FOR EXAM: Female, 88 years old. ams TECHNIQUE: AP portable COMPARISON: None. FINDINGS: The lungs are clear and expanded. Tiny calcified granulomata in the right upper and left upper lobe There is no demonstrated pleural abnormality. Heart is prominent.. Normal mediastinum and danii. Normal visualized pulmonary arteries. Mildly calcified aortic arch and descending thoracic aorta. Dorsal spine and shoulders demonstrate degenerative changes. Normal visualized ribs, and clavicles.. There is no demonstrated abnormality of the visualized soft tissue structures of the upper abdomen. RAD/Chest 1 View (Portable) IMPRESSION: ASHD. No acute cardiopulmonary pathology Electronically Signed: Ras Wooten MD at 19:12 EDT ,
[2023-12-07] MEDS: Ceftriaxone 1 GM/50 ML BAG IV (18:09)
[2023-12-07] MEDS: fentaNYL 100 MCG/2 ML Ampul 25 MCG IV (18:10)
[2023-12-07] MEDS: Ondansetron 4 MG/2 ML Vial IV (18:10)
[2023-12-07] MEDS: 0.9% Normal Saline (1000mL) 1,000 ML 999 ML IV (18:15)
--- NOTE | 2023-12-07 20:38 | ED.RN ---
Per nurse at [facility], pt received last dose of Eliquis 5mg at 0913 this AM. Nurse updated on admission
--- NOTE | 2023-12-07 20:47 | PCM.HP.STD ---
HPI - General General Date of Admission: 12/07/23 Date of Service: 12/07/23 Chief Complaint: Right hip pain HPI Narrative SG CARLISLE, is a 88 F who presented to [facility] ED on 12/07/2023 from residential for right hip pain after fall. Saw patient at bedside in the ED, 2 sons present. Patient was somnolent and not responding to any verbal commands, did have some response to tactile stimulation. She otherwise was laying back comfortably and in no acute distress. History was gathered from patient's sons and ED physician. Patient has history of severe dementia and lives in a residential. She is nonverbal at baseline but does make appropriate eye contact and is able to feed herself slowly with supervision. Patient apparently had a soft fall either out of bed or out of the Sonny lift at the residential yesterday. She was seen by staff there and initially was not sent to the ED due to concern that she would not be an operative candidate given her severe dementia. However, family wished for patient to be further evaluated in the ED in case she could be an operative candidate. ED physician spoke with Dr. Domingo Calloway who said she is an operative candidate. Noted that patient is on Eliquis for A-fib, with last dose being on morning of 12/06. Per Dr. Calloway, would need medical clearance and anesthesia evaluation prior to surgery as well as time for Eliquis to washout, so tentative plan is for surgery on Friday 12/08. Family was agreeable with this plan. Vitals in the ED were notable for low-grade temp and A-fib with rate in the low 100s, otherwise unremarkable. Labs notable for hemoglobin 8.6 (baseline around 10), otherwise unremarkable. UA with 500 leukocyte esterase, negative nitrates, 4+ bacteria. Hip/pelvis and femur x-rays showed an acute impacted intertrochanteric right hip fracture. CT brain and C-spine were unremarkable, and chest x-ray was also unremarkable. [facility] Medical History Rheumatoid arthritis Dementia DVT (deep venous thrombosis) History of blood clots Hypothyroidism Hypertension Hyperlipidemia Paroxysmal atrial fibrillation Home Medications ?Medication ?Instructions ?Recorded ?Last Taken ?Type levothyroxine 200 mcg tablet 200 mcg PO DAILY thyroid 09/21/20 09/01/23 History menthol 0.44 %-zinc oxide 20.6 % 1 applic topical TID skin 07/07/21 07/12/21 05:40 History topical ointment (Calmoseptine) protectant polyethylene glycol 3350 17 gram 17 g PO DAILY PRN CONSTIPATION 07/12/21 07/12/21 05:34 History oral powder packet acetaminophen 325 mg tablet 650 mg PO Q4H PRN fever or pain 09/01/23 09/01/23 History albuterol sulfate 0.63 mg/3 mL 0.63 mg inhalation Q4H PRN 09/01/23 08/19/23 History solution for nebulization shortness of breath or wheezing apixaban 5 mg tablet (Eliquis) 5 mg PO BID 09/01/23 09/01/23 History loratadine 10 mg tablet 10 mg PO DAILY PRN allergy symptoms 09/01/23 Unknown History (Allermario) losartan 50 mg tablet 50 mg PO DAILY 09/01/23 Unknown History metoprolol tartrate 25 mg tablet 25 mg PO BID 09/01/23 Unknown History oxycodone-acetaminophen 5 mg-325 1 tab PO Q6H PRN PRN pain 5 days 09/01/23 Unknown Rx mg tablet #20 TABLETS triamcinolone acetonide 0.1 % 1 applic topical Q12H PRN itching 09/01/23 Unknown History topical ointment acetaminophen 650 mg rectal 650 mg [place] Q4H 12/07/23 Unknown History suppository furosemide 20 mg tablet 20 mg PO DAILY 12/07/23 Unknown History hyoscyamine sulfate 0.125 mg 0.125 mg PO Q2H PRN congestion 12/07/23 Unknown History tablet (Levsin) morphine concentrate 10 mg/0.5 mL 10 mg PO Q2H PRN PRN dyspnea 12/07/23 Unknown History oral syringe (FOR ORAL USE ONLY) Allergy/AdvReac Type Severity Reaction Status Date / Time ertapenem (From [facility]) Allergy Rash Verified 12/07/23 16:47 Penicillins Allergy Unknown Verified 12/07/23 16:47 Family History Father CVA (cerebral vascular accident) Mother Cancer Breast. Surgical History History of embolic filter insertion S/P insertion of IVC (inferior vena caval) filter Status post right knee replacement H/O discectomy History of appendectomy Social History household members: none Smoking Status: Never smoker alcohol intake: never substance use type: does not use ROS Review of Systems ROS Unobtainable: due to mental condition Vital Signs Vital Signs Vital Signs: 12/07/23 16:42 12/07/23 16:42 12/07/23 18:24 Temperature 99.6 F H 99.6 F H 99.2 F H Temperature Source Temporal Axillary Temporal Pulse Rate 101 H 101 H 103 H Respiratory Rate 16 16 20 H Blood Pressure 107/52 L 107/52 L 118/66 Blood Pressure Mean 70 70 83 Pulse Ox 96 96 97 Oxygen Delivery Method Room Air Room Air Oxygen Flow Rate (L/min) 12/07/23 18:46 12/07/23 19:00 12/07/23 19:16 Temperature 99 F 99.8 F H Temperature Source Axillary Axillary Pulse Rate 109 H 106 H Respiratory Rate 18 18 Blood Pressure 129/71 H 126/56 H Blood Pressure Mean 90 79 Pulse Ox 95 100 85 Oxygen Delivery Method Room Air Nasal Cannula Room Air Oxygen Flow Rate (L/min) 2 12/07/23 19:22 12/07/23 20:00 Temperature 100.2 F H Temperature Source Axillary Pulse Rate 103 H Respiratory Rate 16 Blood Pressure 101/54 L Blood Pressure Mean 69 Pulse Ox 100 100 Oxygen Delivery Method Nasal Cannula Nasal Cannula Oxygen Flow Rate (L/min) 2 2 Weight Weight: 80.2 kg Body Mass Index (BMI) 30.3 Physical Exam Const Constitutional Narrative: Elderly female, overweight, somnolent and not responding to verbal commands but is arousable with tactile stimulation, otherwise laying back comfortably in bed, no acute distress. HEENT normocephalic, head/scalp atraumatic and nasal mucous membranes and turbinates normal HEENT Narrative: Dry mucous membranes. Chest inspection of chest normal Resp normal respiratory effort and no use of accessory muscles Resp Narrative: Mildly diminished breath sounds at lung bases, otherwise good air movement throughout. No wheezing or crackles noted. Cardio no murmurs and peripheral pulses 2+ throughout Cardio Narrative: A-fib, rate controlled. GI normal to inspection, nondistended, normoactive bowel sounds, soft to palpation, non-tender and non-distended Back/Spine normal ROM Extremity Extremity Narrative: No significant right hip visual abnormality on exam. Skin no rashes or lesions noted Results Lab / Micro Data 12/07/23 16:50 12/07/23 16:50 Labs: Laboratory Results - last 24 hr 12/07/23 16:50: WBC 9.6, RBC 2.88 L, Hgb 8.6 L, Hct 27.2 L, MCV 94.4, MCH 29.9, MCHC 31.6 L, RDW Std Deviation 51.8 H, RDW Coeff of Jackie 14.9 H, Plt Count 279, MPV 10.0, Immature Gran % (Auto) 0.300, Neut % (Auto) 61.7, Lymph % (Auto) 22.8, [place] % (Auto) 13.2 H, Eos % (Auto) 1.4, Baso % (Auto) 0.6, Absolute Neuts (auto) 5.9, Absolute Lymphs (auto) 2.18, Nucleated RBC % 0, Sodium 143, Potassium 4.1, Chloride 110 H, Carbon Dioxide 30.0, Anion Gap 3 L, BUN 24 H, Creatinine 0.85, Estim Creat Clear Calc 46.87, Est GFR (MDRD) Af Amer 81, Est GFR (MDRD) Non-Af 67, BUN/Creatinine Ratio 28.2 H, Glucose 120 H, Calcium 8.7, Troponin I High Sens 8 12/07/23 17:19: Urine Color Yellow, Urine Clarity Cloudy, Urine pH 7.0, Ur Specific [place] 1.015, Urine Protein 30 H, Urine Glucose (UA) Normal, Urine Ketones 5 H, Urine Occult Blood 25 H, Urine Nitrite Negative, Urine Bilirubin Negative, Urine Urobilinogen 4 H, Ur Leukocyte Esterase 500 H, Urine RBC 0-5 SEEN, Urine WBC 50-100 SEEN, Ur Squamous Epith Cells 0-5 SEEN, Urine Bacteria 4+, Urine Mucus 0 SEEN Imaging Radiology Impression Brain CT 12/07/23 16:57 IMPRESSION: Atrophy and periventricular white matter ischemic changes. Old left lacunar infarct. No acute bleed. If concern for acute infarct MRI recommended. Electronically Signed: Ras Wooten MD at 19:05 EDT , Cervical Spine CT 12/07/23 16:57 IMPRESSION: No evidence for acute fracture or subluxation. Spondylosis. Most severe at C4-5. Electronically Signed: Ras Wooten MD at 19:08 EDT , Chest X-Ray 12/07/23 17:55 IMPRESSION: ASHD. No acute cardiopulmonary pathology Electronically Signed: Ras Wooten MD at 19:12 EDT , Femur X-Ray 12/07/23 17:55 IMPRESSION: Acute intertrochanteric fracture of the right hip Electronically Signed: Ras Wooten MD at 19:10 EDT , Pelvis X-Ray 12/07/23 17:55 IMPRESSION: Acute right hip fracture and bilateral degenerative changes of the hips. No evidence for acute left hip or pelvic fracture Electronically Signed: Ras Wooten MD at 19:11 EDT , Assessment & Plan Assessment/Plan (1) Fracture of right hip: (2) Encephalopathy acute: (3) Anemia: PLAN: Plan Patient is an 88-year-old female who presented [facility] ED on 12/07/2023 from residential for right hip pain after a fall. 1. Right hip fracture ? Admit under inpatient status to [facility]. Orthopedic surgery consulted. Preop evaluation as noted below. Per orthopedics, will need Eliquis washout and tentatively planning for surgery on Friday 12/08. Pain control with scheduled Tylenol and as needed oxycodone and IV Dilaudid. SCDs for DVT prophylaxis. PT/OT/case management consulted. 2. Acute encephalopathy, history of severe dementia with chronic debility ? Patient very somnolent and not responsive to verbal command on admit. Did have some response to tactile stimulation. Lives in residential and has history of severe dementia, per family baseline status is nonverbal and bedbound. However, patient at baseline is able to sit up and make eye contact with you and able to feed herself slowly with supervision. Suspect acute encephalopathy is primarily due to pain medication given in the ED. Will monitor closely and recommend limiting narcotic pain medications is much as able. Avoid other sedating medications as well. 3. Mild hypotension ? Patient normotensive on admission, became hypotensive to the 90s over 50s after she was given a dose of IV fentanyl; suspect this was the reason for her mild hypotension. Given small fluid bolus with some improvement. Limit narcotics as able as noted above. 4. Preoperative evaluation ? NSQIP score: Patient has average risk of any complication and above average risk of serious complication given her risk factors of age, totally dependent functional status, ASA severe systemic disease, hypertension and elevated BMI. ? Labs/imaging: Hemoglobin decreased to 8.6 from baseline of 10 on admit. No overt source of bleeding. Repeat CBC tomorrow morning and recommend repeat CBC postoperatively. BMP normal, repeat BMP postoperatively. ? Cardiac: EKG on admit with controlled A-fib. Last echo in June 2021 showed EF 60%. No signs of heart failure on admission. No further cardiac workup needed. ? Medications: Holding home losartan and Lasix given mild hypotension and upcoming operation. Recommend holding on day of procedure and can consider restarting on postop day 1. Holding Eliquis, defer to orthopedics on timing of restarting. ? Prior procedural complications: None. ? Recommendation: Patient has poor functional status but per orthopedics, if cleared for procedure by anesthesia she is okay for operation. Pending repeat hemoglobin above, is medically stable for procedure. 5. Acute on chronic anemia ? Hemoglobin 8.6 on admit, baseline around 10. Unclear etiology for hemoglobin decrease. Will follow-up a.m. CBC. 6. Chronic A-fib on Eliquis ? In rate controlled A-fib in the low 100s on admit. Continue home Lopressor. Holding home Eliquis for procedure as noted above. Chronic medical conditions: ? Hypothyroidism: Continue home Synthroid. ? Hypertension: Holding home losartan and Lasix for now as above. DVT prophylaxis: SCDs CODE STATUS: DNR CCA, DNI Expected disposition: Back to residential, TBD Total clinical time spent by myself addressing the patient's medical issues, reviewing all the data, and collaborating with patient's care team: 55 minutes. Charges/Coding Visit Charges Inpatient E&M: 64739 Init Hosp L2
[2023-12-07] MEDS: Lactated Ringers 1,000 ML 150 ML IV (22:00)
[2023-12-07] MEDS: Piperacil/Tazobactam 3.375 GM in 0.9% Normal Saline (50mL MB+) 50 ML IV (23:06)
[2023-12-08 02:25] VITALS: BP 96/52; PULSE 90; RESP 16; TEMP 36.6; O2SAT 98
--- NOTE | 2023-12-08 04:42 | NURSING ---
REVIEWED MAR SENT FROM [facility]. ELIQUIS 5 MG PO WAS LAST GIVEN TO PATIENT AT 0700 ON WEDNESDAY 12/06.
[2023-12-08] MEDS: Levothyroxine 100 MCG Tablet 200 MCG PO (05:39)
[2023-12-08] MEDS: Piperacil/Tazobactam 3.375 GM in 0.9% Normal Saline (50mL MB+) 50 ML IV ×3 (05:39→23:06)
[2023-12-08] MEDS: Acetaminophen 500 MG Tablet 1000 MG PO ×2 (05:40→14:20)
--- NOTE | 2023-12-08 07:09 | CT_ITS ---
STUDY: CT RIGHT FEMUR WITHOUT CONTRAST REASON FOR EXAM: Female, 88 years old. Previous fracture distal femur RADIATION DOSAGE (If Supplied By Facility): CTDIvol = ( 24.33 ) mGy, DLP = ( 1211.58 ) mGycm TECHNIQUE: Transaxial CT imaging of the femur was performed. Sagittal and coronal images were reconstructed. Individualized dose optimization techniques were used for this CT. COMPARISON: Comparison is made with prior radiograph dated December 07, 2023. FINDINGS: There is evidence of a comminuted nondisplaced intertrochanteric fracture of the proximal femur. There is minimal superior migration of the distal fracture fragment. There is also evidence of a knee prosthesis. There is evidence of an old fracture of the medial femoral condyle with the sclerosis. Soft tissue swelling. CT/Extremity Lower without Contra IMPRESSION: Nondisplaced, fracture of the intertrochanteric region of proximal right femur with mild cephalic migration of the distal fracture fragment. Soft tissue swelling. Right total knee prosthesis with healing/healed fracture of the medial distal femoral condyle. Electronically Signed: Arnaldo Rosenthal MD at 8:16 EDT ,
[2023-12-08 07:13] LABS: Hematocrit 22.8 % (37-47); Hemoglobin 7.1 g/dL (12.0-15.0); Mean Corp Hgb Conc 31.1 g/dL (32-36); Mean Corpuscular Hgb 29.7 pg (27.0-32.0); Mean Corpuscular Volume 95.4 fL (81-99); Mean Platelet Vol. 10.4 fl (6.2-12.0); Platelet Count 219 K/mm3 (150-450); RBC Distribution Width CV 14.9 % (11.6-14.6); RBC Distribution Width SD 52.4 fl (35.1-43.9); Red Blood Count 2.39 M/mm3 (4.2-5.4); White Blood Count 7.9 K/mm3 (4.4-11.0)
--- NOTE | 2023-12-08 07:36 | PN.HOSP_ITS ---
Reason for Visit Reason for Visit: Diagnoses Anemia, unspecified (12/07/23) Encephalopathy, unspecified (12/07/23) Fracture of unspecified part of neck of right femur, initial encounter for closed fracture (12/07/23) Subjective Subjective Patient is an 88-year-old female resident at an [facility] care facility who presented with a fall imaging studies demonstrated acute intertrochanteric fracture involving the right hip. Patient was also found to have abnormal urinalysis Objective Data Objective Data Vital Signs: Vital Signs Temp Pulse Resp BP Pulse Ox O2 Del Method O2 Flow Rate 97.9 F 90 16 96/52 L 98 Nasal Cannula 2 12/08/23 02:12/08/23 02:12/08/23 02:12/08/23 02:12/08/23 02:12/08/23 02:12/08/23 02:25 Oxygen Flow Rate (L/min) 2 Oxygen Delivery Method Nasal Cannula Weight: 77.5 kg Body Mass Index (BMI) 29.1 Intake & Output: Intake and Output for Last 24 Hours 12/06/23 12/07/23 12/08/23 23:59 23:59 23:59 Intake Total 1050 / 1050 1050 / 1050 Output Total 200 / 200 200 / 200 Balance 850 / 850 850 / 850 Lab / Micro Data 12/08/23 07:02 12/08/23 07:02 Labs: Laboratory Results - last 24 hr 12/07/23 16:50: WBC 9.6, RBC 2.88 L, Hgb 8.6 L, Hct 27.2 L, MCV 94.4, MCH 29.9, MCHC 31.6 L, RDW Std Deviation 51.8 H, RDW Coeff of Jackie 14.9 H, Plt Count 279, MPV 10.0, Immature Gran % (Auto) 0.300, Neut % (Auto) 61.7, Lymph % (Auto) 22.8, [place] % (Auto) 13.2 H, Eos % (Auto) 1.4, Baso % (Auto) 0.6, Absolute Neuts (auto) 5.9, Absolute Lymphs (auto) 2.18, Nucleated RBC % 0, Sodium 143, Potassium 4.1, Chloride 110 H, Carbon Dioxide 30.0, Anion Gap 3 L, BUN 24 H, Creatinine 0.85, Estim Creat Clear Calc 46.87, Est GFR (MDRD) Af Amer 81, Est GFR (MDRD) Non-Af 67, BUN/Creatinine Ratio 28.2 H, Glucose 120 H, Calcium 8.7, Troponin I High Sens 8 12/07/23 17:19: Urine Color Yellow, Urine Clarity Cloudy, Urine pH 7.0, Ur Specific [place] 1.015, Urine Protein 30 H, Urine Glucose (UA) Normal, Urine Ketones 5 H, Urine Occult Blood 25 H, Urine Nitrite Negative, Urine Bilirubin Negative, Urine Urobilinogen 4 H, Ur Leukocyte Esterase 500 H, Urine RBC 0-5 SEEN, Urine WBC 50-100 SEEN, Ur Squamous Epith Cells 0-5 SEEN, Urine Bacteria 4+, Urine Mucus 0 SEEN 12/08/23 07:02: WBC 7.9, RBC 2.39 L, Hgb 7.1 L, Hct 22.8 L, MCV 95.4, MCH 29.7, MCHC 31.1 L, RDW Std Deviation 52.4 H, RDW Coeff of Jackie 14.9 H, Plt Count 219, MPV 10.4 Radiography Diagnostic Testing: Radiology Impression Brain CT 12/07/23 16:57 IMPRESSION: Atrophy and periventricular white matter ischemic changes. Old left lacunar infarct. No acute bleed. If concern for acute infarct MRI recommended. Electronically Signed: Ras Wooten MD at 19:05 EDT , Cervical Spine CT 12/07/23 16:57 IMPRESSION: No evidence for acute fracture or subluxation. Spondylosis. Most severe at C4-5. Electronically Signed: Ras Wooten MD at 19:08 EDT , Chest X-Ray 12/07/23 17:55 IMPRESSION: ASHD. No acute cardiopulmonary pathology Electronically Signed: Ras Wooten MD at 19:12 EDT , Femur X-Ray 12/07/23 17:55 IMPRESSION: Acute intertrochanteric fracture of the right hip Electronically Signed: Ras Wooten MD at 19:10 EDT , Pelvis X-Ray 12/07/23 17:55 IMPRESSION: Acute right hip fracture and bilateral degenerative changes of the hips. No evidence for acute left hip or pelvic fracture Electronically Signed: Ras Wooten MD at 19:11 EDT Reading Location ID and State: [facility] / [place] Tel , Service support , Physical Exam Narrative GENERAL: Flat affect barely communicating HEENT: Atraumatic; normocephalic EYES; Anicteric, Normal Conjunctiva NECK; supple, normal thyroid, RESPIRATORY: Diminished to auscultation CARDIOVASCULAR: Regular S1 S2, GI: soft, normoactive bowel sounds, : No Renal angle tenderness; EXTREMITIES: No edema, no clubbing, MUSCULOSKELETAL: no muscle wasting NEURO: Awake; no lateralizing signs. SKIN: No Rash PSYCH; Flat affect Assessment & Plan Assessment/Plan (1) Fracture of right hip: (2) Encephalopathy acute: (3) Anemia: PLAN: Plan Patient is an 88-year-old female resident at an [facility] care facility who presented with a fall imaging studies demonstrated acute intertrochanteric fracture involving the right hip. Patient was also found to have abnormal urinalysis 1. Fall with right hip fracture ? Patient has been admitted to regular nursing floor managed with pain meds mobilization with consultation placed to orthopedic surgery. Patient preoperative assessment as documented by admitting physician 2. Acute encephalopathy -secondary to metabolic encephalopathy from UTI plan is to treat underlying etiology 3. Acute cystitis ? Patient started on Zosyn on admission, urine culture sent 4. Hypertension - Blood pressure controlled, home medications continued with dose adjustment as needed 5. Anemia ? Suspected to be secondary to anemia of chronic disorder. With patient anticipated surgery patient was typed and crossmatched for 2 unit PRBC. Will continue with H&H monitoring with plans to transfuse if hemoglobin falls below 7 or patient is deemed to be symptomatic 6. Hypotension ? Patient antihypertensives held on admission resuscitated with IV fluid 7. Essential hypertension ? Patient antihypertensives being held given her hypotension 8. Chronic A-fib ? Rate controlled patient is on systemic anticoagulation held 9. Hypothyroidism - Patient is on levothyroxine home dose continued 10.Hypercoagulable state (factor V Leyden mutation) with previous history of DVT ?Patient has an IVC filter placed. Also on Eliquis which is currently being held #11. Degenerative joint disease ? Pain meds as needed 12. Rheumatoid arthritis ? Per history currently not on any Biologics 13. DVT prophylaxis ? Patient was on apixaban which is currently being held given her low hemoglobin CODE STATUS DNR CCA DO NOT INTUBATE Time spent in the patient's overall evaluation,decision-making process, review of diagnostic data, adjustment of management, discussion with other providers, nursing nursing and ancillary staff involved in patient's care documentation, 53 Minutes Charges/Coding Visit Charges Inpatient E&M: 38310 [facility] Hosp L3
[2023-12-08 07:39] LABS: Anion Gap 1 (5-15); BUN 23 mg/dL (7-18); BUN/Creat Ratio 27.7 RATIO (10-20); Calcium,Total 7.9 mg/dL (8.5-10.1); Chloride 112 mmol/L (98-107); Creatinine, Serum 0.83 mg/dL (0.55-1.02); EST Glomerular Filtration Rate 69 mL/min (>60); Est Glom Filt Rate - Afr Amer 84 mL/min (>60); Glucose 103 mg/dL (74-106); Potassium 4.1 mmol/L (3.5-5.1); Sodium Level 142 mmol/L (136-145)
[2023-12-08 09:00] VITALS: BP 114/64; PULSE 98; RESP 15; TEMP 36.9; O2SAT 98
[2023-12-08] MEDS: Menthol/Lanolin/Calamine/Znox 113 GM Tube 1 APPLIC TOPICAL ×2 (09:19→23:10)
[2023-12-08] MEDS: Nystatin Powder 15gm Bottle 1 APPLIC TOPICAL ×2 (09:19→23:11)
[2023-12-08 09:20] VITALS: PULSE 98
[2023-12-08] MEDS: Metoprolol Tartrate 25 MG Tablet PO (09:20)
--- NOTE | 2023-12-08 10:18 | WOUNDNOTE ---
wound photo: right great toe
--- NOTE | 2023-12-08 10:19 | WOUNDNOTE ---
skin photo: left great toe
[2023-12-08 11:22] LABS: Hematocrit 22.9 % (37-47); Hemoglobin 7.2 g/dL (12.0-15.0)
[2023-12-08 15:00] VITALS: BP 105/58; PULSE 97; RESP 15; TEMP 37.2; O2SAT 99
--- NOTE | 2023-12-08 15:51 | CON.PCM.OR_ITS ---
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 Uncertain if patient had fallen out of bed or somehow sustained a fracture while being transferred in a hoarder lift. She is a nonambulator. She has not been able to walk for many years. 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 Kiser in 2017. Patient sustained a supracondylar right femur fracture August 2023. Nonoperative treatment was undertaken. She had no longer been using her knee immobilizer when this happened, falling yesterday. She was brought to the hospital admitted and orthopedics was consulted. Case has been discussed with the ER doctor as well as patient's 2 sons and daughter. Patient is DNR. They did wish her to proceed with hip fracture surgery to try to help with pain. [facility] Medical History Rheumatoid arthritis Dementia DVT (deep venous thrombosis) History of blood clots Hypothyroidism Hypertension Hyperlipidemia Paroxysmal atrial fibrillation Home Medications ?Medication ?Instructions ?Recorded ?Last Taken ?Type levothyroxine 200 mcg tablet 200 mcg PO DAILY thyroid 09/21/20 09/01/23 History menthol 0.44 %-zinc oxide 20.6 % 1 applic topical TID skin 07/07/21 07/12/21 05:40 History topical ointment (Calmoseptine) protectant polyethylene glycol 3350 17 gram 17 g PO DAILY PRN CONSTIPATION 07/12/21 07/12/21 05:34 History oral powder packet acetaminophen 325 mg tablet 650 mg PO Q4H PRN fever or pain 09/01/23 09/01/23 History albuterol sulfate 0.63 mg/3 mL 0.63 mg inhalation Q4H PRN 09/01/23 08/19/23 History solution for nebulization shortness of breath or wheezing apixaban 5 mg tablet (Eliquis) 5 mg PO BID 09/01/23 09/01/23 History loratadine 10 mg tablet 10 mg PO DAILY PRN allergy symptoms 09/01/23 Unknown History (Allerclear) losartan 50 mg tablet 50 mg PO DAILY 09/01/23 Unknown History metoprolol tartrate 25 mg tablet 25 mg PO BID 09/01/23 Unknown History oxycodone-acetaminophen 5 mg-325 1 tab PO Q6H PRN PRN pain 5 days 09/01/23 Unknown Rx mg tablet #20 TABLETS triamcinolone acetonide 0.1 % 1 applic topical Q12H PRN itching 09/01/23 Unknown History topical ointment acetaminophen 650 mg rectal 650 mg AL Q4H 12/07/23 Unknown History suppository furosemide 20 mg tablet 20 mg PO DAILY 12/07/23 Unknown History hyoscyamine sulfate 0.125 mg 0.125 mg PO Q2H PRN congestion 12/07/23 Unknown History tablet (Levsin) morphine concentrate 10 mg/0.5 mL 10 mg PO Q2H PRN PRN dyspnea 12/07/23 Unknown History oral syringe (FOR ORAL USE ONLY) hyoscyamine sulfate 0.125 mg 0.125 mg PO Q2H PRN congestion 12/08/23 Unknown History tablet (Levsin) losartan 25 mg tablet 25 mg PO DAILY HYPERTENSION 12/08/23 Unknown History Allergy/AdvReac Type Severity Reaction Status Date / Time ertapenem (From [facility]) Allergy Rash Verified 12/07/23 16:47 Penicillins Allergy Unknown Verified 12/07/23 16:47 Family History Father CVA (cerebral vascular accident) Mother Cancer Breast. Surgical History History of embolic filter insertion S/P insertion of IVC (inferior vena caval) filter Status post right knee replacement H/O discectomy History of appendectomy Social History household members: none Smoking Status: Never smoker alcohol intake: never substance use type: does not use ROS ROS Narrative Patient does not respond to questions regarding her review of systems. Vital Signs Vital Signs Vital Signs: 12/07/23 16:42 12/07/23 16:42 12/07/23 18:24 Temperature 99.6 F H 99.6 F H 99.2 F H Temperature Source Temporal Axillary Temporal Pulse Rate 101 H 101 H 103 H Pulse Strength Respiratory Rate 16 16 20 H Respiratory Effort Respiratory Depth Respiratory Pattern Blood Pressure 107/52 L 107/52 L 118/66 Blood Pressure Mean 70 70 83 Pulse Ox 96 96 97 Oxygen Delivery Method Room Air Room Air Oxygen Flow Rate (L/min) 12/07/23 18:46 12/07/23 19:00 12/07/23 19:16 Temperature 99 F 99.8 F H Temperature Source Axillary Axillary Pulse Rate 109 H 106 H Pulse Strength Respiratory Rate 18 18 Respiratory Effort Respiratory Depth Respiratory Pattern Blood Pressure 129/71 H 126/56 H Blood Pressure Mean 90 79 Pulse Ox 95 100 85 Oxygen Delivery Method Room Air Nasal Cannula Room Air Oxygen Flow Rate (L/min) 2 12/07/23 19:22 12/07/23 20:00 12/07/23 20:47 Temperature 100.2 F H 99.8 F H Temperature Source Axillary Pulse Rate 103 H 95 Pulse Strength Respiratory Rate 16 16 Respiratory Effort Respiratory Depth Respiratory Pattern Blood Pressure 101/54 L 104/49 L Blood Pressure Mean 69 67 Pulse Ox 100 100 100 Oxygen Delivery Method Nasal Cannula Nasal Cannula Oxygen Flow Rate (L/min) 2 2 12/07/23 21:00 12/07/23 21:34 12/07/23 21:35 Temperature 99.8 F H 99 F Temperature Source Axillary Temporal Pulse Rate 103 H 101 H 103 H Pulse Strength Respiratory Rate 18 15 15 Respiratory Effort Normal Respiratory Depth Normal Respiratory Pattern Normal Blood Pressure 101/53 L 134/63 H Blood Pressure Mean 69 86 Pulse Ox 100 97 Oxygen Delivery Method Nasal Cannula Nasal Cannula Nasal Cannula Oxygen Flow Rate (L/min) 2 2 2 12/07/23 22:00 12/08/23 01:19 12/08/23 02:25 Temperature 97.9 F Temperature Source Axillary Pulse Rate 90 Pulse Strength Normal (2+) Respiratory Rate 16 Respiratory Effort Normal Non-Labored Respiratory Depth Normal Respiratory Pattern Normal Blood Pressure 96/52 L Blood Pressure Mean 66 Pulse Ox 98 Oxygen Delivery Method Nasal Cannula Nasal Cannula Oxygen Flow Rate (L/min) 2 2 12/08/23 07:56 12/08/23 09:00 12/08/23 09:00 Temperature 98.4 F Temperature Source Temporal Pulse Rate 98 Pulse Strength Respiratory Rate 15 Respiratory Effort Respiratory Depth Respiratory Pattern Blood Pressure 114/64 Blood Pressure Mean 80 Pulse Ox 98 Oxygen Delivery Method Nasal Cannula Nasal Cannula Nasal Cannula Oxygen Flow Rate (L/min) 2 2 2 12/08/23 09:20 Temperature Temperature Source Pulse Rate 98 Pulse Strength Respiratory Rate Respiratory Effort Respiratory Depth Respiratory Pattern Blood Pressure Blood Pressure Mean Pulse Ox Oxygen Delivery Method Oxygen Flow Rate (L/min) Weight Weight: 77.5 kg Body Mass Index (BMI) 29.1 Physical Exam Narrative Patient is lying supine in bed. MANJINDER hose and SCDs are on. She does wake up to sometimes say yes or no. She does not follow commands. She has mild shortening of the right hip compared to left. She had no significant pain on palpation at the right knee. She does have diffuse edema of the right lower extremity compared to left. No obvious calf pain. Negative Homans' sign. Right hip has pain with gentle range of motion. Left hip had no pain with range of motion. Skin is intact from what can be seen about the right hip region. CT scan of the right lower extremity was reviewed today showing her intertrochanteric right hip fracture. Also what appears to be a healed fracture of the distal femur above her total knee replacement. Images and report reviewed X-rays of the right hip and pelvis from yesterday showed a right hip impacted displaced intertrochanteric fracture. X-rays of the right knee from yesterday showed a total knee replacement in good alignment without obvious acute fracture Lab / Micro Data Attestation: I reviewed the patient's lab results. 12/08/23 11:06 12/08/23 07:02 Labs: Laboratory Results - last 24 hr 12/07/23 16:50: WBC 9.6, RBC 2.88 L, Hgb 8.6 L, Hct 27.2 L, MCV 94.4, MCH 29.9, MCHC 31.6 L, RDW Std Deviation 51.8 H, RDW Coeff of Jackie 14.9 H, Plt Count 279, MPV 10.0, Immature Gran % (Auto) 0.300, Neut % (Auto) 61.7, Lymph % (Auto) 22.8, [place] % (Auto) 13.2 H, Eos % (Auto) 1.4, Baso % (Auto) 0.6, Absolute Neuts (auto) 5.9, Absolute Lymphs (auto) 2.18, Nucleated RBC % 0, Sodium 143, Potassium 4.1, Chloride 110 H, Carbon Dioxide 30.0, Anion Gap 3 L, BUN 24 H, Creatinine 0.85, Estim Creat Clear Calc 46.87, Est GFR (MDRD) Af Amer 81, Est GFR (MDRD) Non-Af 67, BUN/Creatinine Ratio 28.2 H, Glucose 120 H, Calcium 8.7, Troponin I High Sens 8 12/07/23 17:19: Urine Color Yellow, Urine Clarity Cloudy, Urine pH 7.0, Ur Specific [place] 1.015, Urine Protein 30 H, Urine Glucose (UA) Normal, Urine Ketones 5 H, Urine Occult Blood 25 H, Urine Nitrite Negative, Urine Bilirubin Negative, Urine Urobilinogen 4 H, Ur Leukocyte Esterase 500 H, Urine RBC 0-5 SEEN, Urine WBC 50-100 SEEN, Ur Squamous Epith Cells 0-5 SEEN, Urine Bacteria 4+, Urine Mucus 0 SEEN 12/08/23 07:02: WBC 7.9, RBC 2.39 L, Hgb 7.1 L, Hct 22.8 L, MCV 95.4, MCH 29.7, MCHC 31.1 L, RDW Std Deviation 52.4 H, RDW Coeff of Jackie 14.9 H, Plt Count 219, MPV 10.4, Sodium 142, Potassium 4.1, Chloride 112 H, Carbon Dioxide 29.0, Anion Gap 1 L, BUN 23 H, Creatinine 0.83, Estim Creat Clear Calc 47.20, Est GFR (MDRD) Af Amer 84, Est GFR (MDRD) Non-Af 69, BUN/Creatinine Ratio 27.7 H, Glucose 103, Calcium 7.9 L 12/08/23 08:55: Blood Type O NEGATIVE, Antibody Screen POSITIVE, Antibody Identification ANTI-D, Crossmatch See Detail 12/08/23 11:06: Hgb 7.2 L, Hct 22.9 L Micro: Microbiology 12/07/23 17:19 Urine Catheter - Catheter Urine Culture - Preliminary GNR lactose rfid analyst Gram negative fidelina Imaging Radiology Impression Brain CT 12/07/23 16:57 IMPRESSION: Atrophy and periventricular white matter ischemic changes. Old left lacunar infarct. No acute bleed. If concern for acute infarct MRI recommended. Electronically Signed: Ras Wooten MD at 19:05 EDT Reading Location ID and State: [facility] / [place] Tel , Service support , Cervical Spine CT 12/07/23 16:57 IMPRESSION: No evidence for acute fracture or subluxation. Spondylosis. Most severe at C4-5. Electronically Signed: Ras Wooten MD at 19:08 EDT , Chest X-Ray 12/07/23 17:55 IMPRESSION: ASHD. No acute cardiopulmonary pathology Electronically Signed: Ras Wooten MD at 19:12 EDT , Femur X-Ray 12/07/23 17:55 IMPRESSION: Acute intertrochanteric fracture of the right hip Electronically Signed: Ras Wooten MD at 19:10 EDT , Pelvis X-Ray 12/07/23 17:55 IMPRESSION: Acute right hip fracture and bilateral degenerative changes of the hips. No evidence for acute left hip or pelvic fracture Electronically Signed: Ras Wooten MD at 19:11 EDT Reading Location ID and State: [facility] / [place] Tel [phone], Service support , Lower Extremity CT 12/08/23 07:09 IMPRESSION: Nondisplaced, fracture of the intertrochanteric region of proximal right femur with mild cephalic migration of the distal fracture fragment. Soft tissue swelling. Right total knee prosthesis with healing/healed fracture of the medial distal femoral condyle. Electronically Signed: Arnaldo Rosenthal MD at 8:16 EDT , Assessment & Plan Assessment/Plan (1) Fracture of right hip: QUALIFIERS: Encounter type: initial encounter Fracture type: c losed Qualified Code(s): S72.001A - Fracture of unspecified part of neck of right femur, initial encounter for closed fracture PLAN: Her diagnosis and treatment options regarding her right intertrochanteric hip fracture discussed with her family at length. After explaining risk benefits alternative procedures they did wish to proceed with operative intervention. We will plan right hip short gamma intramedullary nailing. Due to Eliquis use surgery has been postponed until 48 hours after her last dose. Risk of surgery including but not limited to from operative or postoperative complications. Risk of anesthetic complications such as heart attacks, strokes, seizures, or . Risk of infections. Risk of damage to nerves arteries tendons. Risk of inadvertent fractures or dislocations. Risk of bone or wound healing complications. Possibility of nonunion malunion pain stiffness weakness. Possible need for further surgery such as hardware removal. Risk of DVT PE and other potential complications could lead to or disability explained. No guarantees were stated or implied. All of their questions were answered. Appropriate informed consent was obtained and signed for surgical intervention. We will plan to use Ancef for her preoperative antibiotic. Known penicillin allergy. According to reports she was given Ancef prior to her knee replacement surgery 6 years ago. They understand risk of recurring fracture of the distal femur above her knee replacement that could make surgery very difficult due to the required traction and rotation for better alignment of the hip. If needed a traction pin could be placed in the distal femur, but hopefully that will not be necessary. Patient will be started back on Eliquis after her surgery. Otherwise MANJINDER conti and SCDs for now. We will plan to start with Eliquis 2.5 mg twice daily to ensure no undue bleeding, especially in light of her recent drop in hemoglobin. Reportedly patient has been ordered blood transfusion for her anemia. Case discussed with Dr. Rubalcava from anesthesia. Possible UTI, on antibiotic. Multiple medical comorbidities evaluated and treated by hospitalist service
--- NOTE | 2023-12-08 16:12 | NURSING ---
dr chahal notified that dr hodges is not going to order blood at this time because hgb is not below 7. dr chahal aware and may transfuse before surgery.
[2023-12-08 19:51] VITALS: O2SAT 99
[2023-12-08 22:49] VITALS: BP 103/50; PULSE 92; RESP 16; TEMP 37.7; O2SAT 98
[2023-12-09] VITALS (16 sets, daily range): BP systolic 98–158; BP diastolic 43–126; PULSE 72–163; RESP 16–18; TEMP 36.8–37.8; O2SAT 94–100; BMI 29.3
[2023-12-09 05:17] LABS: Absolute Lymphocyte Count 1.47 X10^3/uL (0.83-4.51); Absolute Neutrophil Count 4.8 X10^3/uL (2.0-7.7); Basophil# 0.05 X10^3/uL; Basophil% 0.6 % (0-1); Eosinophil# 0.73 X10^3/uL; Eosinophils% 9.4 % (0-5); Hematocrit 23.8 % (37-47); Hemoglobin 7.6 g/dL (12.0-15.0); Lymphocyte # 1.47 X10^3/ul (0.83-4.51); Lymphocyte % 18.9 % (19-41); Mean Corp Hgb Conc 31.9 g/dL (32-36); Mean Corpuscular Hgb 31.1 pg (27.0-32.0); Mean Corpuscular Volume 97.5 fL (81-99); Mean Platelet Vol. 10.2 fl (6.2-12.0); Monocyte# 0.67 X10^3/uL; Monocyte% 8.6 % (0-10); NRBC Flagged by Analyzer 0 % (0-5); Neutrophil # 4.84 X10^3/uL (2.7-7.7); Neutrophil % 62.1 % (47-70); Platelet Count 221 K/mm3 (150-450); RBC Distribution Width CV 14.6 % (11.6-14.6); RBC Distribution Width SD 51.4 fl (35.1-43.9); Red Blood Count 2.44 M/mm3 (4.2-5.4); White Blood Count 7.8 K/mm3 (4.4-11.0)
[2023-12-09 05:25] LABS: International Normalized Ratio 1.5; Prothrombin Time (Protime)PT. 17.7 SECONDS (11.7-14.9)
[2023-12-09 05:26] LABS: Partial Thromboplast Time 40.2 Seconds (24.1-36.2)
[2023-12-09 05:42] LABS: Anion Gap 3 (5-15); BUN 22 mg/dL (7-18); Calcium,Total 8.1 mg/dL (8.5-10.1); Chloride 112 mmol/L (98-107); Creatinine, Serum 0.71 mg/dL (0.55-1.02); EST Glomerular Filtration Rate 83 mL/min (>60); Est Glom Filt Rate - Afr Amer 100 mL/min (>60); Estimated Creatinine Clearance 48.97 ml/min; Glucose 91 mg/dL (74-106); Potassium 4.1 mmol/L (3.5-5.1); Sodium Level 143 mmol/L (136-145); Thyroid Stim Hormone (TSH) 0.21 uIU/mL (0.358-3.74)
[2023-12-09] MEDS: Piperacil/Tazobactam 3.375 GM in 0.9% Normal Saline (50mL MB+) 50 ML IV ×3 (06:01→23:20)
[2023-12-09] MEDS: Cefazolin 2 GM in 0.9% Normal Saline (100mL Bag) 100 ML IV (07:07)
--- NOTE | 2023-12-09 07:23 | PCM.PRE.AN2 ---
ASA Classification* ASA Classification ASA Classification: 3 and E Assessment & Plan Anesthesia* Anesthesia Assessment Anesthesia Assessment: Discussed sedation and/or anesthesia options, risks, benefits, and alternatives with patient/parents/legal guardian/POA. Questions invited. The patient/parents/legal guardian/POA seems to understand and agrees to proceed with anesthesia plan. Reviewed the physical assessment, medical history, allergy history and patient home medications list prior to surgery/procedure/anesthetic and documented any changes. Performed airway and anesthesia risk assessments. Anesthesia Type Anesthesia Type: General Anesthesia Focused Assessment* Temperature: 98.5 F Pulse Rate: 108 Blood Pressure: 118/57 Respiratory Rate: 18 Pulse Ox: 98 Airway Assessment Mouth opens: >3 cm Mallampati Score: II Focused Labs Anesthesia Preop lab: CBC WBC 7.8 K/mm3 (4.4-11.0) 12/09/23 05:08 RBC 2.44 M/mm3 (4.2-5.4) L 12/09/23 05:08 Hgb 7.6 g/dL (12.0-15.0) L 12/09/23 05:08 Hct 23.8 % (37-47) L 12/09/23 05:08 Plt Count 221 K/mm3 (150-450) 12/09/23 05:08 CHEMISTRY Potassium 4.1 mmol/L (3.5-5.1) 12/09/23 05:08 Sodium 143 mmol/L (136-145) 12/09/23 05:08 Magnesium 2.0 mg/dL (1.6-2.6) 07/26/21 05:40 BUN 22 mg/dL (7-18) H 12/09/23 05:08 Creatinine 0.71 mg/dL (0.55-1.02) 12/09/23 05:08 Glucose 91 mg/dL (74-106) 12/09/23 05:08 TSH 0.21 uIU/mL (0.358-3.74) L 12/09/23 05:08 COAG PT 17.7 SECONDS (11.7-14.9) H 12/09/23 05:08 Pre-Assessment Diagnosis/Proposed Procedure Planned Operative Procedure(s): ORIF Gamma Nail hip fx Anesthesia History 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 When Was Last Pacemaker Check QUESTION #4 FULL TEXT: You/Your Family Experience fever (hyperthermia) with Anesthesia Last Oral Intake Last Oral intake: Last Oral Intake NPO since Meds taken in AM with sips of water? 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 Has anyone observed you stop No 12/07/23 21:34 breathing during sleep? STOP Results Negative 12/07/23 21:34 QUESTION #5 FULL TEXT : Do you snore loudly (louder than talking or can be heard through closed doors)? 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 Specify any problems Hx of Preganancy in last 3 N/A 12/07/23 21:34 Months Nurse Filling Out Transfusion LSHRINER 12/07/23 21:34 & Questions: Date: 12/07/23 12/07/23 21:34 Time: 21:57 12/07/23 21:34 Patient unable to answer at this time (ie. 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 INHALATION Q4H PRN shortness of breath or wheezing Calamine/Phenol 1 applic 12/08/23 10:00 12/08/23 23:10 Menthol/Lanolin/Calamine/Znox 113 Gm Tube TOPICAL 1 applic BID CONNIE Administration Protocol Hydromorphone HCl 0.25 mg 12/08/23 06:13 Hydromorphone 0.5 Mg/0.5 Ml Syringe IV Q4H PRN PRN Pain Score 6-10 Hyoscyamine Sulfate 0.125 mg 12/08/23 00:15 Hyoscyamine Sulfate 0.125 Mg/Ml Bottle PO Q2H PRN PRN CRAMPS Piperacillin Sod/Tazobactam 50 mls @ 12.5 mls/hr 12/07/23 22:19 12/09/23 07:04 Sod 3.375 gm/ Sodium Chloride IV Infused Q8 CONNIE Infusion Sodium Chloride 250 mls @ 15 mls/hr 12/08/23 14:22 IV .[id number] PRN Saline Flush Cefazolin Sodium 2 gm/ Sodium 110 mls @ 150 mls/hr 12/09/23 07:00 12/09/23 07:07 Chloride IV 12/09/23 07:43 150 mls/hr X1 ONE Administration Levothyroxine Sodium 200 mcg 12/08/23 06:00 12/09/23 06:03 Levothyroxine 100 Mcg Tablet PO Not Given DAILY@0600 CONNIE Melatonin 3 mg 12/07/23 22:19 Melatonin 3 Mg Tablet PO QHS PRN PRN INSOMNIA Metoprolol Tartrate 25 mg 12/07/23 22:19 12/08/23 23:10 Metoprolol Tartrate 25 Mg Tablet PO Not Given BID [facility] Protocol Morphine Sulfate 10 mg 12/07/23 22:19 Morphine (Oral Solution) 10mg/0.5ml Syringe PO Q2H PRN PRN dyspnea Nutritional Formula (Lactose Free) 120 ml 12/08/23 18:00 12/08/23 23:10 Ensure Plus High Protein 120 Ml Liquid PO Not Given 4X/DAY [facility] Nystatin 1 applic 12/08/23 10:00 12/08/23 23:11 Nystatin Powder 15gm Bottle TOPICAL 1 applic BID CONNIE Administration Protocol Ondansetron HCl 4 mg 12/07/23 22:19 Ondansetron 4 Mg/2 Ml Vial IV Q8H PRN PRN NAUSEA/VOMITING Oxycodone HCl 2.5 mg 12/08/23 06:13 Oxycodone 5 Mg Tablet PO Q4H PRN PRN Pain Score 4-10 Sodium Chloride 10 - 40 ml 12/08/23 14:22 0.9% Saline Lock 10 Ml Syringe IV UD PRN SALINE FLUSH PFSH Medical History Rheumatoid arthritis Dementia DVT (deep venous thrombosis) History of blood clots Hypothyroidism Hypertension Hyperlipidemia Paroxysmal atrial fibrillation Home Medications ?Medication ?Instructions ?Recorded ?Last Taken ?Type levothyroxine 200 mcg tablet 200 mcg PO DAILY thyroid 09/21/20 09/01/23 History menthol 0.44 %-zinc oxide 20.6 % 1 applic topical TID skin 07/07/21 07/12/21 05:40 History topical ointment (Calmoseptine) protectant polyethylene glycol 3350 17 gram 17 g PO DAILY PRN CONSTIPATION 07/12/21 07/12/21 05:34 History oral powder packet acetaminophen 325 mg tablet 650 mg PO Q4H PRN fever or pain 09/01/23 09/01/23 History albuterol sulfate 0.63 mg/3 mL 0.63 mg inhalation Q4H PRN 09/01/23 08/19/23 History solution for nebulization shortness of breath or wheezing apixaban 5 mg tablet (Eliquis) 5 mg PO BID 09/01/23 09/01/23 History loratadine 10 mg tablet 10 mg PO DAILY PRN allergy symptoms 09/01/23 Unknown History (Allercheikhar) losartan 50 mg tablet 50 mg PO DAILY 09/01/23 Unknown History metoprolol tartrate 25 mg tablet 25 mg PO BID 09/01/23 Unknown History oxycodone-acetaminophen 5 mg-325 1 tab PO Q6H PRN PRN pain 5 days 09/01/23 Unknown Rx mg tablet #20 TABLETS triamcinolone acetonide 0.1 % 1 applic topical Q12H PRN itching 09/01/23 Unknown History topical ointment acetaminophen 650 mg rectal 650 mg MI Q4H 12/07/23 Unknown History suppository furosemide 20 mg tablet 20 mg PO DAILY 12/07/23 Unknown History hyoscyamine sulfate 0.125 mg 0.125 mg PO Q2H PRN congestion 12/07/23 Unknown History tablet (Levsin) morphine concentrate 10 mg/0.5 mL 10 mg PO Q2H PRN PRN dyspnea 12/07/23 Unknown History oral syringe (FOR ORAL USE ONLY) hyoscyamine sulfate 0.125 mg 0.125 mg PO Q2H PRN congestion 12/08/23 Unknown History tablet (Levsin) losartan 25 mg tablet 25 mg PO DAILY HYPERTENSION 12/08/23 Unknown History Allergy/AdvReac Type Severity Reaction Status Date / Time ertapenem (From [facility]) Allergy Rash Verified 12/07/23 16:47 Penicillins Allergy Unknown Verified 12/07/23 16:47 Family History Father CVA (cerebral vascular accident) Mother Cancer Breast. Surgical History History of embolic filter insertion S/P insertion of IVC (inferior vena caval) filter Status post right knee replacement H/O discectomy History of appendectomy Social History household members: none Smoking Status: Never smoker alcohol intake: never substance use type: does not use Review of Systems (Anesthesia) ROS Narrative System reviewed and no additional complaints, except as documented.
--- NOTE | 2023-12-09 07:55 | RAD_ITS ---
STUDY: X-RAY - PELVIS AND RIGHT HIP REASON FOR EXAM: Female, 88 years old. FX TECHNIQUE: Frontal and lateral fluoroscopic views of the pelvis and hip. Reference air kerma (ka,r): 50.62 mGy COMPARISON: Pelvis x-ray 12/07/2023. FINDINGS: Femoral intramedullary fidelina with distal interlocking screw and femoral neck fixation screw spanning intertrochanteric fracture. Gross alignment. RAD/Hip 1 view with Pelvis IMPRESSION: Limited diagnostic information. Please see procedural report. Electronically Signed: Ghanshyam Clemens MD ([place]) at 12:36 EDT ,
--- NOTE | 2023-12-09 08:25 | PCM.PN.HOSP ---
Reason for Visit Reason for Visit: Diagnoses Anemia, unspecified (12/07/23) Encephalopathy, unspecified (12/07/23) Fracture of unspecified part of neck of right femur, initial encounter for closed fracture (12/07/23) Subjective Subjective Patient seen pain is well-controlled. Patient is scheduled to undergo surgical intervention for her hip fracture. Urine cultures so far positive for ESBL and Proteus mirabilis Objective Data Objective Data Vital Signs: Vital Signs Temp Pulse Resp BP Pulse Ox O2 Del Method O2 Flow Rate 98.5 F 108 H 18 118/57 L 98 Nasal Cannula 2 12/09/23 07:24 12/09/23 07:24 12/09/23 07:24 12/09/23 07:24 12/09/23 07:24 12/09/23 05:45 12/09/23 07:24 Oxygen Flow Rate (L/min) 2 Oxygen Delivery Method Nasal Cannula Weight: 77.5 kg Body Mass Index (BMI) 29.3 Intake & Output: Intake and Output for Last 24 Hours 12/07/23 12/08/23 12/09/23 23:59 23:59 23:59 Intake Total 1050 / 1050 1150 / 1150 100 / 100 Output Total 200 / 200 730 / 730 Balance 850 / 850 420 / 420 100 / 100 Lab / Micro Data 12/09/23 05:08 12/09/23 05:08 Labs: Laboratory Results - last 24 hr 12/08/23 08:55: Blood Type O NEGATIVE, Antibody Screen POSITIVE, Antibody Identification ANTI-D, Crossmatch See Detail 12/08/23 11:06: Hgb 7.2 L, Hct 22.9 L 12/09/23 05:08: WBC 7.8, RBC 2.44 L, Hgb 7.6 L, Hct 23.8 L, MCV 97.5, MCH 31.1, MCHC 31.9 L, RDW Std Deviation 51.4 H, RDW Coeff of Jackie 14.6, Plt Count 221, MPV 10.2, Immature Gran % (Auto) 0.400, Neut % (Auto) 62.1, Lymph % (Auto) 18.9 L, [place] % (Auto) 8.6, Eos % (Auto) 9.4 H, Baso % (Auto) 0.6, Absolute Neuts (auto) 4.8, Absolute Lymphs (auto) 1.47, Nucleated RBC % 0, PT 17.7 H, INR 1.5, APTT 40.2 H, Sodium 143, Potassium 4.1, Chloride 112 H, Carbon Dioxide 28.0, Anion Gap 3 L, BUN 22 H, Creatinine 0.71, Estim Creat Clear Calc 48.97, Est GFR (MDRD) Af Amer 100, Est GFR (MDRD) Non-Af 83, BUN/Creatinine Ratio 31.0 H, Glucose 91, Calcium 8.1 L, TSH 0.21 L Micro: Microbiology 12/07/23 17:19 Urine Catheter - Catheter Urine Culture - Preliminary ESBL Escherichia coli Proteus mirabilis Physical Exam Narrative GENERAL: Flat affect barely communicating HEENT: Atraumatic; normocephalic EYES; Anicteric, Normal Conjunctiva NECK; supple, normal thyroid, RESPIRATORY: Diminished to auscultation CARDIOVASCULAR: Regular S1 S2, GI: soft, normoactive bowel sounds, : No Renal angle tenderness; EXTREMITIES: No edema, no clubbing, MUSCULOSKELETAL: no muscle wasting NEURO: Awake; no lateralizing signs. SKIN: No Rash PSYCH; Flat affect Assessment & Plan Assessment/Plan (1) Fracture of right hip: QUALIFIERS: Encounter type: initial encounter Fracture type: closed Qualified Code(s): S72.001A - Fracture of unspecified part of neck of right femur, initial encounter for closed fracture (2) Encephalopathy acute: (3) Anemia: PLAN: Plan Patient is an 88-year-old female resident at an [facility] care facility who presented with a fall imaging studies demonstrated acute intertrochanteric fracture involving the right hip. Patient was also found to have abnormal urinalysis 1. Fall with right hip fracture ? Patient has been admitted to regular nursing floor managed with pain meds mobilization with consultation placed to orthopedic surgery. Patient preoperative assessment as documented by admitting physician ? 12/09/2023. Patient scheduled to undergo surgical intervention. Patient has been typed and crossmatched for 2 unit PRBC in anticipation of drop in her hemoglobin level following surgery. 2. Acute encephalopathy -secondary to metabolic encephalopathy from UTI plan is to treat underlying etiology 3. Acute cystitis with ESBL E. coli as well as Proteus mirabilis ? Patient started on Zosyn on admission, urine culture sent 12/09/2023; urine cultures positive for ESBL E. coli as well as Proteus mirabilis ideally patient would have been switched to meropenem however given her reported allergy to Invanz and both organisms being sensitive to piperacillin/tazobactam patient was left on current antibiotic therapy 4. Hypertension - Blood pressure controlled, home medications continued with dose adjustment as needed 5. Anemia ? Suspected to be secondary to anemia of chronic disorder. With patient anticipated surgery patient was typed and crossmatched for 2 unit PRBC. Will continue with H&H monitoring with plans to transfuse if hemoglobin falls below 7 or patient is deemed to be symptomatic ? 12/09/2023; patient hemoglobin remains low but stable. Do anticipate drop following surgical intervention 6. Hypotension ? Patient antihypertensives held on admission resuscitated with IV fluid 7. Essential hypertension ? Patient antihypertensives being held given her hypotension 8. Chronic A-fib ? Rate controlled patient is on systemic anticoagulation held 9. Hypothyroidism - Patient is on levothyroxine home dose continued 10.Hypercoagulable state (factor V Leyden mutation) with previous history of DVT ?Patient has an IVC filter placed. Also on Eliquis which is currently being held #11. Degenerative joint disease ? Pain meds as needed 12. Rheumatoid arthritis ? Per history currently not on any Biologics 13. DVT prophylaxis ? Patient was on apixaban which is currently being held given her low hemoglobin CODE STATUS DNR CCA DO NOT INTUBATE Time spent in the patient's overall evaluation,decision-making process, review of diagnostic data, adjustment of management, discussion with other providers, nursing nursing and ancillary staff involved in patient's care documentation, 50 Minutes Charges/Coding Visit Charges Inpatient E&M: 41829 [facility] Hosp L3
--- NOTE | 2023-12-09 09:14 | OP.PCM_ITS ---
Problems Associated Problem List Diagnoses (1) Fracture of right hip: Operative Report Date of Procedure: 12/09/23 Preoperative diagnosis: Right hip displaced intertrochanteric fracture Postoperative diagnosis: Same Title of operation: Right hip open reduction internal fixation, intramedullary nail fixation, locked Surgeon: Dr. Domingo Calloway Director Of Flight Operations: Martha Reynolds PA-C Anesthesia: General, Dr. Rubalcava EBL: 20 Fluid in: 400 Urine output: 40 Medications: Ancef 2 g, 1 g IV preoperatively Indications for surgery: Patient is an 88-year-old female sustained a hip fracture . Patient had been on Eliquis. Surgery scheduled for just greater than 48 hours after her last dose. Patient and their family explained diagnosis and treatment options. Patient evaluated by the medical services. Patient did wish to have surgery. Appropriate informed consent obtained and signed. Findings: Patient had a displaced intertrochanteric hip fracture. They underwent standard reduction, internal fixation using a Delphi short gamma nail. X-rays taken throughout. medical assistant per diem, physician visitor information assistant, was utilized throughout the entire procedure. They were vital to the procedure from beginning to end. They help with patient transfer, patient padding and positioning, fracture reduction, maintenance of fracture reduction, internal fixation of implants, wound closure, bandage application, patient transfer. Without instructor adjunct surgical technician, surgical time would have been significantly increased and surgical outcome could have been less optimal. Procedure: Patient was taken to the operating room. Placed under a general anesthetic and transferred to the operating table with the help of the visitor information assistant. With the help of the visitor information assistant patient was prepped and padded for surgery. Operative side foot was well-padded and placed in the traction boot. Patient had a right ankle contracture. Also patient noted to have previous right distal femoral fracture so positioning and traction were done very carefully. Uninjured lower extremity was abducted and flexed out of harms way. MANJINDER brodye and SCDs utilized. Fluoroscopy was brought in. With the help of the visitor information assistant and manipulation of the limb, reduction was nicely obtained as verified under AP lateral and oblique fluoroscopic images. . Operative hip/thigh was prepped padded draped in usual orthopedic sterile fashion for the procedure. Longitudinal incision was made just proximal to the greater trochanter. Taken through skin and subcutaneous tissue. Sharp awl was placed on the tip of the greater trochanter. Position verified under AP and lateral fluoroscopic images. This was then taken down inside the bone. Slightly bent ball-tipped guide fidelina was then placed from the tip of the greater trochanter into the intra-medullary canal of the femur. Its position verified radiographically. Reamer was then done over the tip of this with the help of the visitor information assistant holding the soft tissue protector appropriately. Once reaming was done we placed the short 125? angle device over the guidepin. This was easily introduced. Guide fidleina removed. Outrigger device was utilized to position a guidepin from the lateral cortex of the femur across the fracture site and into the femoral head in a good position centrally, as noted on AP lateral and oblique fluoroscopic images. This was measured. Appropriate reaming done. Appreciate length lag screw was placed from the lateral cortex of the femur into the femoral head. A small amount of the screw was noted to be protruding laterally as planned. No cartilage penetration of the femoral head noted on any x-ray. Fracture was then compressed with the outrigger device. Proximal cap screw was placed by the visitor information assistant seated down completely, confirmed, and then loosened one fourth turn. We then used the outrigger device to place distal c ross locking screw under standard technique. This was confirmed to be of adequate length in good position on AP and lateral images. Outrigger device removed. Final set of AP and lateral proximal x-rays taken and saved. Incisions thoroughly irrigated. Closing by the visitor information assistant with deep 0 Vicryl, mid layer 0 Vicryl, inverted 2-0 Vicryl, skin rosi. Puncture wounds closed with inverted 2-0 Vicryl and rosi. Xeroform 4 x 4's ABD tape applied. Patient was awoken from their anesthetic, transferred back to their own bed with the help of the visitor information assistant and into recovery room in satisfactory condition. Patient will continue to be admitted to the hospital under the hospitalist service. Patient will continue on IV antibiotics for urinary tract infection. Also postoperative Ancef. Patient will be resumed on Eliquis 2.5 mg twice a day starting tomorrow. Will plan to use this for several days to try to avoid excess bleeding, before resuming her normal dose of 5 mg Eliquis twice a day. This note was generated with kooldiner dictation software. It may contain incorrect words, spelling, and punctuation that were not noted in checking the note before signing.
--- NOTE | 2023-12-09 11:13 | CASEMGMT ---
Addendum entered by Lauren Kohler 12/09/23 11:30: Social Work- SW sent referral with initial documentation to [facility] via [employer]. MITCH Walsh Original Note: Social Work- MARGARITA met with dtr Gillian to discuss preferences at d/c. Gillian states that the family plans to have pt return to [facility]. Gillian states there is an updated HCPOA that she will bring in naming Gillian as primary agent, and sons Sam and Jhon as secondary agents. Plan: [facility]; intermediate level of care MITCH Wlash
[2023-12-09 12:40] LABS: Hematocrit 26.4 % (37-47); Hemoglobin 8.1 g/dL (12.0-15.0)
--- NOTE | 2023-12-09 13:20 | NURSING ---
Mel from [facility] updated on pt's condition.
[2023-12-09] MEDS: Nystatin Powder 15gm Bottle 1 APPLIC TOPICAL ×2 (14:00→23:26)
[2023-12-09] MEDS: Acetaminophen 500 MG Tablet 1000 MG PO (18:56)
--- NOTE | 2023-12-09 19:51 | NURSING ---
1900-T-100.1, PT W/2 BLANKETS ON AND ROOM IS WARM (FAMILY MEMBERS AGREED). PULLED TOP BLANKET BACK AND UNCOVERED PTS FEET. ALSO TURNED TEMP DOWN SLIGHTLY. AT THIS TIME, PT IS THE MOST AWAKE SHE HAS BEEN ALL DAY, I WAS ABLE TO GET HER TO TAKE HER TYLENOL CRUSHED IN APPLESAUCE WELL SEVERAL SIPS OF H2O VIA HOLDING FINGER OVER STRAW. PT ATE ALMOST 50% OF THE APPLESAUCE, THIS IS ALL SHE HAS HAD TODAY OTHER THAN THE SIPS OF H2O I WAS ABLE TO GET HER TO TAKE A COUPLE DIFFERENT TIMES EARLIER TODAY
[2023-12-09] MEDS: Metoprolol Tartrate 25 MG Tablet PO (23:21)
[2023-12-09] MEDS: Senna/Docusate Sodium 1 Tablet 2 TABLET PO (23:24)
[2023-12-09] MEDS: Menthol/Lanolin/Calamine/Znox 113 GM Tube 1 APPLIC TOPICAL (23:25)
[2023-12-10] VITALS (12 sets, daily range): BP systolic 101–141; BP diastolic 58–94; PULSE 69–100; RESP 14–20; TEMP 36.1–37; O2SAT 82–99
[2023-12-10 06:27] LABS: Hematocrit 22.7 % (37-47); Mean Corp Hgb Conc 30.8 g/dL (32-36); Mean Corpuscular Hgb 29.7 pg (27.0-32.0); Mean Corpuscular Volume 96.2 fL (81-99); Mean Platelet Vol. 10.5 fl (6.2-12.0); Platelet Count 225 K/mm3 (150-450); RBC Distribution Width CV 14.7 % (11.6-14.6); RBC Distribution Width SD 51.4 fl (35.1-43.9); Red Blood Count 2.36 M/mm3 (4.2-5.4); White Blood Count 8.7 K/mm3 (4.4-11.0)
[2023-12-10 06:51] LABS: Anion Gap 3 (5-15); BUN 24 mg/dL (7-18); BUN/Creat Ratio 28.7 RATIO (10-20); Calcium,Total 7.9 mg/dL (8.5-10.1); Chloride 114 mmol/L (98-107); Creatinine, Serum 0.84 mg/dL (0.55-1.02); EST Glomerular Filtration Rate 68 mL/min (>60); Est Glom Filt Rate - Afr Amer 83 mL/min (>60); Estimated Creatinine Clearance 46.64 ml/min; Glucose 106 mg/dL (74-106); Potassium 3.8 mmol/L (3.5-5.1); Sodium Level 145 mmol/L (136-145)
[2023-12-10] MEDS: Levothyroxine 100 MCG Tablet 200 MCG PO (07:07)
[2023-12-10] MEDS: Piperacil/Tazobactam 3.375 GM in 0.9% Normal Saline (50mL MB+) 50 ML IV ×3 (07:07→22:48)
[2023-12-10] MEDS: Acetaminophen 500 MG Tablet 1000 MG PO ×3 (07:07→22:48)
--- NOTE | 2023-12-10 07:37 | PN.HOSP_ITS ---
Reason for Visit Reason for Visit: Diagnoses Anemia, unspecified (12/07/23) Encephalopathy, unspecified (12/07/23) Fracture of unspecified part of neck of right femur, initial encounter for closed fracture (12/07/23) Subjective Subjective Patient underwent right hip open reduction internal fixation, intramedullary nail fixation, locked on 12/10/[address] Domingo Calloway. Objective Data Objective Data Vital Signs: Vital Signs Temp Pulse Resp BP Pulse Ox O2 Del Method O2 Flow Rate 98.4 F 69 20 H 128/58 H 95 Room Air 2 12/10/23 02:47 12/10/23 02:47 12/10/23 02:47 12/10/23 02:47 12/10/23 06:40 12/10/23 06:40 12/09/23 19:00 Oxygen Flow Rate (L/min) 2 Oxygen Delivery Method Room Air Weight: 77.5 kg Body Mass Index (BMI) 29.3 Intake & Output: Intake and Output for Last 24 Hours 12/08/23 12/09/23 12/10/23 23:59 23:59 23:59 Intake Total 1150 / 1150 260 / 260 50 / 50 Output Total 730 / 730 700 / 700 125 / 125 Balance 420 / 420 -440 / -440 -75 / -75 Lab / Micro Data 12/10/23 05:57 12/10/23 05:57 Labs: Laboratory Results - last 24 hr 12/09/23 12:25: Hgb 8.1 L, Hct 26.4 L 12/10/23 05:57: WBC 8.7, RBC 2.36 L, Hgb 7.0 L, Hct 22.7 L, MCV 96.2, MCH 29.7, MCHC 30.8 L, RDW Std Deviation 51.4 H, RDW Coeff of Jackie 14.7 H, Plt Count 225, MPV 10.5, Sodium 145, Potassium 3.8, Chloride 114 H, Carbon Dioxide 28.0, Anion Gap 3 L, BUN 24 H, Creatinine 0.84, Estim Creat Clear Calc 46.64, Est GFR (MDRD) Af Amer 83, Est GFR (MDRD) Non-Af 68, BUN/Creatinine Ratio 28.7 H, Glucose 106, Calcium 7.9 L Micro: Microbiology 12/07/23 17:19 Urine Catheter - Catheter Urine Culture - Preliminary ESBL Escherichia coli Proteus mirabilis Radiography Diagnostic Testing: Radiology Impression Hip/Pelvis X-Ray 12/09/23 07:55 IMPRESSION: Limited diagnostic information. Please see procedural report. Electronically Signed: Ghanshyam Clemens MD ([place]) at 12:36 EDT Reading Location ID and State: [facility] / [place] , Service support , Physical Exam Narrative GENERAL: Flat affect barely communicating HEENT: Atraumatic; normocephalic EYES; Anicteric, Normal Conjunctiva NECK; supple, normal thyroid, RESPIRATORY: Diminished to auscultation CARDIOVASCULAR: Regular S1 S2, GI: soft, normoactive bowel sounds, : No Renal angle tenderness; EXTREMITIES: No edema, no clubbing, MUSCULOSKELETAL: no muscle wasting NEURO: Awake; no lateralizing signs. SKIN: No Rash PSYCH; Flat affect Assessment & Plan Assessment/Plan (1) Fracture of right hip: QUALIFIERS: Encounter type: initial encounter Fracture type: c losed Qualified Code(s): S72.001A - Fracture of unspecified part of neck of right femur, initial encounter for closed fracture (2) Encephalopathy acute: (3) Anemia: PLAN: Plan Patient is an 88-year-old female resident at an [facility] care facility who presented with a fall imaging studies demonstrated acute intertrochanteric fracture involving the right hip. Patient was also found to have abnormal urinalysis 1. Fall with right hip fracture ? Patient has been admitted to regular nursing floor managed with pain meds mobilization with consultation placed to orthopedic surgery. Patient preoperative assessment as documented by admitting physician ? 12/09/2023. Patient scheduled to undergo surgical intervention. Patient has been typed and crossmatched for 2 unit PRBC in anticipation of drop in her hemoglobin level following surgery. ? 12/10/2023;Patient underwent right hip open reduction internal fixation, intramedullary nail fixation, locked on 12/10/[address] Domingo Calloway. 2. Acute encephalopathy -secondary to metabolic encephalopathy from UTI plan is to treat underlying etiology ? 12/10/2023; patient back to baseline 3. Acute cystitis with ESBL E. coli as well as Proteus mirabilis ? Patient started on Zosyn on admission, urine culture sent 12/09/2023; urine cultures positive for ESBL E. coli as well as Proteus mirabilis ideally patient would have been switched to meropenem however given her reported allergy to Invanz and both organisms being sensitive to piperacillin/tazobactam patient was left on current antibiotic therapy 4. Hypertension - Blood pressure controlled, home medications continued with dose adjustment as needed 5. Anemia ? Suspected to be secondary to anemia of chronic disorder. With patient anticipated surgery patient was typed and crossmatched for 2 unit PRBC. Will continue with H&H monitoring with plans to transfuse if hemoglobin falls below 7 or patient is deemed to be symptomatic ? 12/09/2023; patient hemoglobin remains low but stable. Do anticipate drop following surgical intervention ? 12/10/2023; with patient hemoglobin dropping to 7 and order was given for patient to be transfused 1 unit PRBC 6. Hypotension ? Patient antihypertensives held on admission resuscitated with IV fluid 7. Essential hypertension ? Patient antihypertensives being held given her hypotension 8. Chronic A-fib ? Rate controlled patient is on systemic anticoagulation held 9. Hypothyroidism - Patient is on levothyroxine home dose continued 10. Hypercoagulable state (factor V Leyden mutation) with previous history of DVT ?Patient has an IVC filter placed. Also on Eliquis which is currently being held. With patient advanced age and frailty patient is not an appropriate candidate for long-term systemic anticoagulation #11. Degenerative joint disease ? Pain meds as needed 12. Rheumatoid arthritis ? Per history currently not on any Biologics 13. DVT prophylaxis ? Patient was on apixaban which is currently being held given her low hemoglobin ? Did initiate Eliquis for DVT prophylaxis (prophylactic dose 2.5 mg p.o. twice daily) CODE STATUS DNR CCA DO NOT INTUBATE Time spent in the patient's overall evaluation,decision-making process, review of diagnostic data, adjustment of management, discussion with other providers, nursing nursing and ancillary staff involved in patient's care documentation, 36 minutes Charges/Coding Visit Charges Inpatient E&M: 00800 Subs Hosp L2
[2023-12-10] MEDS: Menthol/Lanolin/Calamine/Znox 113 GM Tube 1 APPLIC TOPICAL ×2 (08:55→22:50)
[2023-12-10] MEDS: Nystatin Powder 15gm Bottle 1 APPLIC TOPICAL ×2 (08:56→22:49)
[2023-12-10] MEDS: Metoprolol Tartrate 25 MG Tablet PO ×2 (08:56→22:49)
--- NOTE | 2023-12-10 09:07 | PCM.POST.ANE ---
Anesthesia: Postop Eval I Current Vital Signs Temperature: 97 F Pulse Rate: 80 Blood Pressure: 126/60 Respiratory Rate: 16 Pulse Ox: 95 Oxygen Delivery Method: Room Air Assessment Airway patent: Yes Spontaneous unlabored respirations: Yes Mental status: Awake nausea: No Vomiting: No Anesthesia Complication: No Fluid Hydration Crystalloid volume administer (ml): 400 Total IV fluid infused: 400 Progress Note Anesthesia document: Postop Eval 1 completed: Yes
[2023-12-10] MEDS: Senna/Docusate Sodium 1 Tablet 2 TABLET PO ×2 (09:14→22:49)
[2023-12-10] MEDS: APIXABAN 2.5 MG TABLET (WCH) PO ×2 (09:14→22:49)
[2023-12-10] MEDS: Furosemide 40 MG/4 ML Vial IV (15:21)
[2023-12-10] MEDS: 0.9% Saline Lock 10 ML Syringe IV (15:21)
[2023-12-10] MEDS: MELATONIN 3 MG TABLET PO (22:48)
[2023-12-11 05:17] LABS: Hematocrit 25.7 % (37-47); Mean Corp Hgb Conc 31.1 g/dL (32-36); Mean Corpuscular Hgb 29.1 pg (27.0-32.0); Mean Corpuscular Volume 93.5 fL (81-99); Mean Platelet Vol. 10.3 fl (6.2-12.0); Platelet Count 236 K/mm3 (150-450); RBC Distribution Width CV 15.1 % (11.6-14.6); RBC Distribution Width SD 51.2 fl (35.1-43.9); Red Blood Count 2.75 M/mm3 (4.2-5.4); White Blood Count 7.8 K/mm3 (4.4-11.0)
[2023-12-11 05:49] VITALS: BP 119/64; PULSE 86; RESP 18; TEMP 36.6; O2SAT 98
[2023-12-11] MEDS: Acetaminophen 500 MG Tablet 1000 MG PO (06:18)
[2023-12-11] MEDS: Levothyroxine 100 MCG Tablet 200 MCG PO (06:18)
[2023-12-11] MEDS: Piperacil/Tazobactam 3.375 GM in 0.9% Normal Saline (50mL MB+) 50 ML IV ×2 (06:18→14:20)
[2023-12-11 07:50] VITALS: O2SAT 99
[2023-12-11 09:21] VITALS: BP 129/72; PULSE 87; RESP 18; TEMP 36.4; O2SAT 99
[2023-12-11 09:25] VITALS: PULSE 89
[2023-12-11] MEDS: APIXABAN 2.5 MG TABLET (WCH) PO (09:25)
[2023-12-11] MEDS: Metoprolol Tartrate 25 MG Tablet PO (09:25)
[2023-12-11] MEDS: Nystatin Powder 15gm Bottle 1 APPLIC TOPICAL (09:26)
[2023-12-11] MEDS: Menthol/Lanolin/Calamine/Znox 113 GM Tube 1 APPLIC TOPICAL (09:26)
--- NOTE | 2023-12-11 09:32 | PN.HOSP_ITS ---
Subjective Subjective Doing well, no issues overnight. Pain is controlled Objective Data Objective Data Vital Signs: Vital Signs Temp Pulse Resp BP Pulse Ox O2 Del Method O2 Flow Rate 97.6 F L 89 18 129/72 H 99 Nasal Cannula 2 12/11/23 09:21 12/11/23 09:25 12/11/23 09:21 12/11/23 09:21 12/11/23 09:21 12/11/23 09:21 12/11/23 09:21 Oxygen Flow Rate (L/min) 2 Oxygen Delivery Method Nasal Cannula Weight: 170 lb 13.732 oz Body Mass Index (BMI) 29.3 Intake & Output: Intake and Output for Last 24 Hours 12/10/23 12/11/23 12/12/23 03:59 03:59 03:59 Intake Total 310 / 310 301 / 301 Output Total 700 / 700 2100 / 2100 125 / 125 Balance -390 / -390 -1799 / -1799 -125 / -125 Lab / Micro Data 12/11/23 05:10 12/10/23 05:57 Labs: Laboratory Results - last 24 hr 12/08/23 08:55: Blood Type O NEGATIVE, Antibody Screen POSITIVE, Antibody Identification ANTI-D, Crossmatch See Detail 12/11/23 05:10: WBC 7.8, RBC 2.75 L, Hgb 8.0 L, Hct 25.7 L, MCV 93.5, MCH 29.1, MCHC 31.1 L, RDW Std Deviation 51.2 H, RDW Coeff of Jackie 15.1 H, Plt Count 236, MPV 10.3 Micro: Microbiology 12/07/23 17:19 Urine Catheter - Catheter Urine Culture - Final ESBL Escherichia coli Proteus mirabilis Physical Exam Narrative General: Sleepy, Oriented x1, Cooperative, No apparent distress HEENT: Atraumatic, PERRLA, EOMI, Normocephalic Oral: Moist Mucosa Neck: Supple, No JVD Lungs: Diminished, normal air movement, No rhonchi, No wheeze, No rales Cardiovascular: Regular rate, Regular Rhythm, Normal S1, Normal S2, No murmurs Abdomen: Soft, Non Tender, Non-Distended, No Hepato-splenomegaly Extremities: No edema, Capillary Refill Less than 3 Seconds Skin: Dressing CDI, right hip Musculoskeletal: No Tenderness to Palpation of Joints or Extremities Neurological: No focal neurological deficits, moves all extremities, right leg is limited due to pain Psych/Mental Status: Flat Assessment & Plan Assessment/Plan (1) Fracture of right hip: QUALIFIERS: Encounter type: initial encounter Fracture type: c losed Qualified Code(s): S72.001A - Fracture of unspecified part of neck of right femur, initial encounter for closed fracture (2) Encephalopathy acute: (3) Anemia: PLAN: Plan 1. Right femoral neck fracture status post ORIF on 11/20/2023 from mechanical fall/postoperative anemia ? Status postrepair ? PT/OT ? SNF placement ? Restarted on anticoagulation ? Unclear if the anemia is acute blood loss anemia from surgery as there is only an estimated 20 cc loss during surgery. Hemoglobin currently is low but stable at 8, will monitor. She did receive 1 unit of blood yesterday. May be a component of anemia of chronic disease as well 2. ESBL E. coli and Proteus mirabilis UTI leading to metabolic encephalopathy and contributing likely to the mechanical fall ? Currently on Zosyn ? Can likely transition to fosfomycin on discharge for 2-3 doses as she has completed 4 days of Zosyn while here ? It does appear that her metabolic encephalopathy has resolved 3. Essential HTN/chronic A-fib ? Given her hypotension and need for blood transfusion, her blood pressure medications have been held ? Will monitor make adjustments as necessary ? She can resume Eliquis at 5 mg as she does not meet criteria for reduced dosing 4. Hypothyroidism ? Stabilized ? Continue with PPI 5. History of factor V Leiden ? As she does have a history of DVT ? Continue with Eliquis at 5 mg ? She does have an IVC filter in place despite her age and frailty given the history of her factor V Leiden as well as her chronic A-fib will continue with Eliquis but I do encourage outpatient discussions with family once she is outside of the postoperative period to discuss the risks and benefits of continuation of Eliquis given her frailty DVT: Eliquis Charges/Coding Visit Charges Inpatient E&M: 59761 Subs Hosp L2
--- NOTE | 2023-12-11 09:40 | CASEMGMT ---
Social Work- MARGARITA spoke with Renetta at [facility] to advise that pt will likely d/c today. [facility] is able to accept return. MARGARITA sent updates via [employer]. MITCH Walsh
[2023-12-11 14:23] VITALS: BP 136/72; PULSE 81; RESP 18; TEMP 36.3; O2SAT 99
[2023-12-11 15:11] LABS: Hematocrit 27.2 % (37-47); Hemoglobin 8.5 g/dL (12.0-15.0)
--- NOTE | 2023-12-11 15:30 | TREXTCAR_ITS ---
Diet Diet Order/Speech Therapy: 12/10/23 14:24 Diet: Regular - General Diet Comments: grind meat please, otherwise small bites/soft food Routine Orders/Code Status Routine Lab Work: CBC and BMP Code Status: DNRCC-A Wound(s) LEFT MIDDLE FINGER KNUCKLE: Wound Type: Abrasion Right Buttock: Wound Type: Shearing right great toe: Wound Type: dry blood blister RIGHT HIP: Wound Type: Surgical Incision Therapies Weight Bearing: Weight bearing as tolerated Extremity Affected:: Right Lower Physical Therapy: Eval and Treat Occupational Therapy: Eval and Treat Problem/Diagnosis (1) Fracture of right hip: Status: Acute Code(s): S72.001A - Fracture of unspecified part of neck of right femur, initial encounter for closed fracture (2) Encephalopathy acute: Status: Acute Code(s): G93.40 - Encephalopathy, unspecified (3) Anemia: Status: Acute Code(s): D64.9 - Anemia, unspecified Plan 1. Right femoral neck fracture status post ORIF on 11/20/2023 from mechanical fall/postoperative anemia ? Status postrepair ? PT/OT ? SNF placement ? Restarted on anticoagulation ? Unclear if the anemia is acute blood loss anemia from surgery as there is only an estimated 20 cc loss during surgery. Hemoglobin currently is low but stable at 8, will monitor. She did receive 1 unit of blood yesterday. May be a component of anemia of chronic disease as well 2. ESBL E. coli and Proteus mirabilis UTI leading to metabolic encephalopathy and contributing likely to the mechanical fall ? Currently on Zosyn ? Can likely transition to fosfomycin on discharge for 2-3 doses as she has completed 4 days of Zosyn while here ? It does appear that her metabolic encephalopathy has resolved 3. Essential HTN/chronic A-fib ? Given her hypotension and need for blood transfusion, her blood pressure medications have been held ? Will monitor make adjustments as necessary ? She can resume Eliquis at 5 mg as she does not meet criteria for reduced dosing 4. Hypothyroidism ? Stabilized ? Continue with PPI 5. History of factor V Leiden ? As she does have a history of DVT ? Continue with Eliquis at 5 mg ? She does have an IVC filter in place despite her age and frailty given the history of her factor V Leiden as well as her chronic A-fib will continue with Eliquis but I do encourage outpatient discussions with family once she is outside of the postoperative period to discuss the risks and benefits of continuation of Eliquis given her frailty DVT: Eliquis Allergies/Procedures Done in Hospital Allergies ertapenem (From Invanz) Allergy (Verified 12/07/23 16:47) Rash Penicillins Allergy (Verified 12/07/23 16:47) Unknown Procedures: None Type of Care/Length of Stay Estimated LOS: Convalescent Care Less Than 30 days Type of Care Needed: Skilled Rehab Potential: Fair Prognosis: Fair Additional Orders/Day of Discharge Day of Discharge: 12/11/23 Dietary and Speech Recommendations Dietitian Recommendations/Changes: Continue regular diet. Will order 120ml Ensure Plus HP 4 times daily with medpass. During follow up, will talk with family regarding nutrition concerns and question, if available. Reviewed and approved by Sirena Perry RD, LD. Discharge Plan Admission Admit Date/Time: 12/07/23 20:47 Attending Provider: Ethan Aguilar Primary Care Provider: Melvin Weber Consulting Providers: Hans King; Domingo Calloway; Jesse Prather Discharge Orders/Prescriptions Prescriptions: New fosfomycin tromethamine 3 gram packet 1 packet PO QODAY Qty: 2 0RF Continued levothyroxine 200 mcg tablet 200 mcg PO DAILY menthol-zinc oxide [Calmoseptine] 0.44-20.6 % ointment 1 applic topical TID Protocol: *Topical Application Instructions APPLICATION INSTRUCTIONS: coccyx polyethylene glycol 3350 17 gram Powder In Packet 17 g PO DAILY PRN (Reason: CONSTIPATION) acetaminophen 325 mg tablet 650 mg PO Q4H PRN (Reason: fever or pain) metoprolol tartrate 25 mg tablet 25 mg PO BID albuterol sulfate 0.63 mg/3 mL solution for nebulization 0.63 mg inhalation Q4H PRN (Reason: shortness of breath or wheezing) loratadine [Allerclear] 10 mg tablet 10 mg PO DAILY PRN (Reason: allergy symptoms) triamcinolone acetonide 0.1 % ointment 1 applic topical Q12H PRN (Reason: itching) Eliquis 5 mg Tablet 5 mg PO BID Taper: Apixaban VTE Treatment 10 mg TWICE A DAY for 7 Days and 0 Hour 5 mg TWICE A DAY for 30 Days and 0 Hour hyoscyamine sulfate [Levsin] 0.125 mg tablet 0.125 mg PO Q2H PRN acetaminophen 650 mg suppository 650 mg PA Q4H furosemide 20 mg tablet 20 mg PO DAILY hyoscyamine sulfate [Levsin] 0.125 mg tablet 0.125 mg PO Q2H PRN (Reason: congestion) Held losartan 50 mg tablet 50 mg PO DAILY Hold Instructions: Resume on 12/13/23. losartan 25 mg tablet 25 mg PO DAILY Hold Instructions: Resume on 12/13/23. Discontinued oxycodone-acetaminophen [oxycodone-acetaminophen] 5-325 mg tablet 1 tab PO Q6H PRN PRN (Reason: pain) 5 Days Qty: 20 0RF morphine concentrate 10 mg/0.5 mL syringe 10 mg PO Q2H PRN PRN (Reason: dyspnea) Referrals / Follow Up: Melvin Weber MD [Primary Care Provider] - Domingo Calloway MD [Med Staff - Active Staff] - Within 2 Weeks Disposition Disposition (needs filled in before D/C Order can be placed): Long-Term Facility (1) Fracture of right hip Qualifiers: Encounter type: initial encounter Fracture type: closed Qualified Code(s): S72.001A - Fracture of unspecified part of neck of right femur, initial encounter for closed fracture
--- NOTE | 2023-12-11 15:38 | CASEMGMT ---
Social Work- SW received word from physician that pt will d/c to [facility]. SW called to verify availability of fosfomycin per physician request; medication is available. Plans to d/c to proceed. MITCH Walsh
--- NOTE | 2023-12-11 16:12 | DS.PCM_ITS ---
Providers Date of Admission: 12/07/23 Primary Care Physician: Dr. 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 Routine Comment: Reason for Consult:: Right great toe; blackened area Reason For Visit: RIGHT HIP FRACTURE Diagnosis Discharge Diagnosis (1) Fracture of right hip: Status: Acute Code(s): S72.001A - Fracture of unspecified part of neck of right femur, initial encounter for closed fracture Qualifiers: Encounter type: initial encounter Fracture type: closed Qualified Code(s): S72.001A - Fracture of unspecified part of neck of right femur, initial encounter for closed fracture (2) Encephalopathy acute: Status: Acute Code(s): G93.40 - Encephalopathy, unspecified (3) Anemia: Status: Acute Code(s): D64.9 - Anemia, unspecified Medications at Discharge Home Medications levothyroxine 200 mcg tablet 200 mcg PO DAILY thyroid 09/21/20 menthol 0.44 %-zinc oxide 20.6 % topical ointment (Calmoseptine) 1 applic topical TID skin protectant 07/07/21 polyethylene glycol 3350 17 gram oral powder packet 17 g PO DAILY PRN CONSTIPATION 07/12/21 acetaminophen 325 mg tablet 650 mg PO Q4H PRN fever or pain 09/01/23 albuterol sulfate 0.63 mg/3 mL solution for nebulization 0.63 mg inhalation Q4H PRN shortness of breath or wheezing 09/01/23 apixaban 5 mg tablet (Eliquis) 5 mg PO BID 09/01/23 loratadine 10 mg tablet (Allerclear) 10 mg PO DAILY PRN allergy symptoms 09/01/23 losartan 50 mg tablet 50 mg PO DAILY 09/01/23 metoprolol tartrate 25 mg tablet 25 mg PO BID 09/01/23 triamcinolone acetonide 0.1 % topical ointment 1 applic topical Q12H PRN itching 09/01/23 acetaminophen 650 mg rectal suppository 650 mg MN Q4H 12/07/23 furosemide 20 mg tablet 20 mg PO DAILY 12/07/23 hyoscyamine sulfate 0.125 mg tablet (Levsin) 0.125 mg PO Q2H PRN congestion 12/07/23 hyoscyamine sulfate 0.125 mg tablet (Levsin) 0.125 mg PO Q2H PRN congestion 12/08/23 losartan 25 mg tablet 25 mg PO DAILY HYPERTENSION 12/08/23 fosfomycin tromethamine 3 gram oral packet 1 packet PO QODAY 2 doses #2 ea 12/11/23 Hospital Course Operations - ( Right hip open reduction internal fixation, intramedullary nail fixation, locked) Procedures None Summary of Care Provided Minutes Spent on Discharge: 36 Hospital Course: Per HPI: SG CARLISLE, is a 88 F who presented to [facility] ED on 12/07/2023 from group home for right hip pain after fall. Saw patient at bedside in the ED, 2 sons present. Patient was somnolent and not responding to any verbal commands, did have some response to tactile stimulation. She otherwise was laying back comfortably and in no acute distress. History was gathered from patient's sons and ED physician. Patient has history of severe dementia and lives in a group home. She is nonverbal at baseline but does make appropriate eye contact and is able to feed herself slowly with supervision. Patient apparently had a soft fall either out of bed or out of the Sonny lift at the group home yesterday. She was seen by staff there and initially was not sent to the ED due to concern that she would not be an operative candidate given her severe dementia. However, family wished for patient to be further evaluated in the ED in case she could be an operative candidate. ED physician spoke with Dr. Domingo Calloway who said she is an operative candidate. Noted that patient is on Eliquis for A-fib, with last dose being on morning of 12/06. Per Dr. Calloway, would need medical clearance and anesthesia evaluation prior to surgery as well as time for Eliquis to washout, so tentative plan is for surgery on Friday 12/08. Family was agreeable with this plan. Vitals in the ED were notable for low-grade temp and A-fib with rate in the low 100s, otherwise unremarkable. Labs notable for hemoglobin 8.6 (baseline around 10), otherwise unremarkable. UA with 500 leukocyte esterase, negative nitrates, 4+ bacteria. Hip/pelvis and femur x-rays showed an acute impacted intertrochanteric right hip fracture. CT brain and C-spine were unremarkable, and chest x-ray was also unremarkable. Hospital Course: 1. Right femoral neck fracture status post ORIF on 11/20/2023 from mechanical fall/postoperative anemia ? Status postrepair ? PT/OT ? SNF placement ? Restarted on anticoagulation ? Unclear if the anemia is acute blood loss anemia from surgery as there is only an estimated 20 cc loss during surgery. Hemoglobin was 8 this morning on recheck at 8.5. Given that her hemoglobin is now stable she is medically cleared for discharge to the group home for physical therapy 2. ESBL E. coli and Proteus mirabilis UTI leading to metabolic encephalopathy and contributing likely to the mechanical fall ? Currently on Zosyn ?Will plan for 3 g of fosfomycin p.o. every 48 hours for 2 doses to complete treatment of her UTI at the SNF ? It does appear that her metabolic encephalopathy has resolved 3. Essential HTN/chronic A-fib ? Given her hypotension and need for blood transfusion, her blood pressure medications have been held, continue to hold losartan on discharge can continue with metoprolol. ? Will monitor make adjustments as necessary ?Will continue with Eliquis at 2.5 mg p.o. twice daily for another 3 days and then increase back to 5 mg twice daily which is her baseline dosing 4. Hypothyroidism ? Stabilized ? Continue with PPI 5. History of factor V Leiden ? As she does have a history of DVT ? Continue with Eliquis at 5 mg in a couple of days postdischarge ? She does have an IVC filter in place despite her age and frailty given the history of her factor V Leiden as well as her chronic A-fib will continue with Eliquis but I do encourage outpatient discussions with family once she is outside of the postoperative period to discuss the risks and benefits of continuation of Eliquis given her frailty Physical Exam Narrative General: Sleepy, Oriented x1, Cooperative, No apparent distress HEENT: Atraumatic, PERRLA, EOMI, Normocephalic Oral: Moist Mucosa Neck: Supple, No JVD Lungs: Diminished, normal air movement, No rhonchi, No wheeze, No rales Cardiovascular: Regular rate, Regular Rhythm, Normal S1, Normal S2, No murmurs Abdomen: Soft, Non Tender, Non-Distended, No Hepato-splenomegaly Extremities: No edema, Capillary Refill Less than 3 Seconds Skin: Dressing CDI, right hip Musculoskeletal: No Tenderness to Palpation of Joints or Extremities Neurological: No focal neurological deficits, moves all extremities, right leg is limited due to pain Psych/Mental Status: Flat Weight / BMI Weight Weight: 170 lb 13.732 oz Body Mass Index (BMI) 29.3 ABG / Lab / Microbiology Data 12/11/23 14:45 12/10/23 05:57 Laboratory: Laboratory Results - last 24 hr 12/11/23 05:10: WBC 7.8, RBC 2.75 L, Hgb 8.0 L, Hct 25.7 L, MCV 93.5, MCH 29.1, MCHC 31.1 L, RDW Std Deviation 51.2 H, RDW Coeff of Jackie 15.1 H, Plt Count 236, MPV 10.3 12/11/23 14:45: Hgb 8.5 L, Hct 27.2 L Microbiology: Microbiology 12/07/23 17:19 Urine Catheter - Catheter Urine Culture - Final ESBL Escherichia coli Proteus mirabilis Meaningful Use Info Meaningful Use Meaningful Use Diagnoses (Choose all that apply): None applicable Ischemic Stroke Statin Dosing Therapy Reference: STATIN DOSE THERAPY REFERENCE: * Patients > 75 years receive moderate or high dose statin therapy. * Patients 75 years or YOUNGER should receive HIGH intensity statin dose unless contraindicated. You will be required to document reason for non-treatment if statin daily dose does not meet guidelines. HIGH DOSE STATIN THERAPY DAILY Atorvastatin > than or = to 40 mg Rosuvastatin > than or = to 20 mg Amlodipine + Atorvastatin > than or = to 2.5/40 mg Ezetimibe + Simvastatin 10/80 mg Simvastatin 80mg Discharge Plan Admission Admit Date/Time: 12/07/23 20:47 Attending Provider: Ethan Aguilar Primary Care Provider: Melvin eWber Consulting Providers: Hans King; Domingo Calloway; Jesse Prather Discharge Orders/Prescriptions Prescriptions: New fosfomycin tromethamine 3 gram packet 1 packet PO QODAY Qty: 2 0RF Continued levothyroxine 200 mcg tablet 200 mcg PO DAILY menthol-zinc oxide [Calmoseptine] 0.44-20.6 % ointment 1 applic topical TID Protocol: *Topical Application Instructions APPLICATION INSTRUCTIONS: coccyx polyethylene glycol 3350 17 gram Powder In Packet 17 g PO DAILY PRN (Reason: CONSTIPATION) acetaminophen 325 mg tablet 650 mg PO Q4H PRN (Reason: fever or pain) metoprolol tartrate 25 mg tablet 25 mg PO BID albuterol sulfate 0.63 mg/3 mL solution for nebulization 0.63 mg inhalation Q4H PRN (Reason: shortness of breath or wheezing) loratadine [Allerclear] 10 mg tablet 10 mg PO DAILY PRN (Reason: allergy symptoms) triamcinolone acetonide 0.1 % ointment 1 applic topical Q12H PRN (Reason: itching) Eliquis 5 mg Tablet 5 mg PO BID Taper: Apixaban VTE Treatment 10 mg TWICE A DAY for 7 Days and 0 Hour 5 mg TWICE A DAY for 30 Days and 0 Hour hyoscyamine sulfate [Levsin] 0.125 mg tablet 0.125 mg PO Q2H PRN acetaminophen 650 mg suppository 650 mg MN Q4H furosemide 20 mg tablet 20 mg PO DAILY hyoscyamine sulfate [Levsin] 0.125 mg tablet 0.125 mg PO Q2H PRN (Reason: congestion) Held losartan 50 mg tablet 50 mg PO DAILY Hold Instructions: Resume on 12/13/23. losartan 25 mg tablet 25 mg PO DAILY Hold Instructions: Resume on 12/13/23. Discontinued oxycodone-acetaminophen [oxycodone-acetaminophen] 5-325 mg tablet 1 tab PO Q6H PRN PRN (Reason: pain) 5 Days Qty: 20 0RF morphine concentrate 10 mg/0.5 mL syringe 10 mg PO Q2H PRN PRN (Reason: dyspnea) Referrals / Follow Up: Melvin Weber MD [Primary Care Provider] - Domingo Calloway MD [Med Staff - Active Staff] - Within 2 Weeks Disposition Disposition (needs filled in before D/C Order can be placed): Half-Way Facility Charges/Coding Visit Charges Inpatient E&M: 23770 Disch Hosp >30min
--- NOTE | 2023-12-11 16:12 | CASEMGMT ---
Social Work Physician updated and pt is ready for discharge today.? PASSR completed in [facility]ENS and sent along with discharge orders to [facility] via [facility].? Transportation arranged with Physician ambulance for 18:00 pickup via ground ambulance.? SW met with pt and they are agreeable to discharge plan as stated above.? Pt daughter, Gillian, and bedside nurse notified of discharge time. Disposition:[facility]?, intermediate level of care [facility]
--- NOTE | 2023-12-11 16:27 | PHA.DC.MR.R ---
Pharmacy [place] Med Reconciliation Pharmacy Service has performed discharge medication reconciliation for this patient. The patient's discharge medication list was reviewed for discrepancies and discrepancies were resolved. Medications at Discharge Home Medications levothyroxine 200 mcg tablet 200 mcg PO DAILY thyroid 09/21/20 menthol 0.44 %-zinc oxide 20.6 % topical ointment (Calmoseptine) 1 applic topical TID skin protectant 07/07/21 polyethylene glycol 3350 17 gram oral powder packet 17 g PO DAILY PRN CONSTIPATION 07/12/21 acetaminophen 325 mg tablet 650 mg PO Q4H PRN fever or pain 09/01/23 albuterol sulfate 0.63 mg/3 mL solution for nebulization 0.63 mg inhalation Q4H PRN shortness of breath or wheezing 09/01/23 apixaban 5 mg tablet (Eliquis) 5 mg PO BID 09/01/23 loratadine 10 mg tablet (Allerclear) 10 mg PO DAILY PRN allergy symptoms 09/01/23 losartan 50 mg tablet 50 mg PO DAILY 09/01/23 metoprolol tartrate 25 mg tablet 25 mg PO BID 09/01/23 triamcinolone acetonide 0.1 % topical ointment 1 applic topical Q12H PRN itching 09/01/23 acetaminophen 650 mg rectal suppository 650 mg MT Q4H 12/07/23 furosemide 20 mg tablet 20 mg PO DAILY 12/07/23 hyoscyamine sulfate 0.125 mg tablet (Levsin) 0.125 mg PO Q2H PRN congestion 12/07/23 hyoscyamine sulfate 0.125 mg tablet (Levsin) 0.125 mg PO Q2H PRN congestion 12/08/23 losartan 25 mg tablet 25 mg PO DAILY HYPERTENSION 12/08/23 fosfomycin tromethamine 3 gram oral packet 1 packet PO QODAY 2 doses #2 ea 12/11/23
== END 2023-12-11 17:55 | DRG 480 ==
LOC: ED 20:42 → MS3 21:00
PROVIDERS: Anesthesiology; Internal Medicine; Orthopaedic Surgery; Admitting Provider Hospitalist; Emergency Provider Student in an Organized Health Care Education/Training Program; PCP Family Medicine; Visit Provider Family Medicine
PROC: 0QS606Z Reposition Right Upper Femur with Intramedullary Internal Fixation Device, Open Approach (ICD-10-PCS; CPT 27245; principal; 2023-12-09 07:30)
DX: S72.141A Displaced intertrochanteric fracture of right femur, initial encounter for closed fracture (principal); G93.41 Metabolic encephalopathy; I48.20 Chronic atrial fibrillation, unspecified; D62 Acute posthemorrhagic anemia; N30.00 Acute cystitis without hematuria; D68.51 Activated protein C resistance; Z16.12 Extended spectrum beta lactamase (ESBL) resistance; F03.C0 Unspecified dementia, severe, without behavioral disturbance, psychotic disturbance, mood disturbance, and anxiety; M06.9 Rheumatoid arthritis, unspecified; D63.8 Anemia in other chronic diseases classified elsewhere; E03.9 Hypothyroidism, unspecified; I10 Essential (primary) hypertension; I95.2 Hypotension due to drugs; E78.5 Hyperlipidemia, unspecified; W17.89XA Other fall from one level to another, initial encounter; Y92.129 Unspecified place in nursing home as the place of occurrence of the external cause; T40.415A Adverse effect of fentanyl or fentanyl analogs, initial encounter; Y92.239 Unspecified place in hospital as the place of occurrence of the external cause; B96.20 Unspecified Escherichia coli [E. coli] as the cause of diseases classified elsewhere; B96.4 Proteus (mirabilis) (morganii) as the cause of diseases classified elsewhere; R53.81 Other malaise; Z66 Do not resuscitate; Z79.01 Long term (current) use of anticoagulants; Z79.890 Hormone replacement therapy; Z79.899 Other long term (current) drug therapy; Z86.718 Personal history of other venous thrombosis and embolism; Z96.651 Presence of right artificial knee joint
CPT/HCPCS: 36415; 51702; 70450; 71045; 72125; 72170; 73501; 73552; 73700; 76000; 80048; 81001; 84443; 84484; 85014; 85018; 85025; 85027; 85610; 85730; 86850; 86870; 86900; 86901; 86920; 86922; 87077; 87086; 87088; 87186; 93005; 94762; 97110; 97162; 97166; 97530; 99284; C1713; J7030; J7040; J7120; P9016; A4216; J1940; J2405

== ENCOUNTER → 2024-12-02 04:00 | Outpatient (REF) | payer MEDICARE, SELFPAY ==
--- OUTSIDE RECORDS SUMMARY | 2024-12-02 03:53 | XMS RPT_ITS | CCD ---
Author Organization [facility] Care Team Providers Care Family Services Coordinator Name Role Phone LEONA Bear, Kathryn Mesa Unavailable UnavailLiana Son Unavailable Unavailable WINIFRED [employer] EXAMINER-C Consulting ROSA Irby Admitting Unavailable ROSA DENISE Attending Unavailable Nhi DELGADILLO, Ana Hensley Unavailable Unavailable DeFinis, Harumi Y Unavailable Unavailable Liana Joshi Unavailable Unavailable Melvin Weber Primary Care Provider UnavailMelvin Lopez Referring Provider Unavailable Doctor, Dr. Blancas Attending Provider CARLOS Canela Emergency Provider Dr. Zully Bazzi Admit Provider Dr. Zully Bazzi Attending Provider Dr. Zully Bazzi Other Provider Dr. Domingo Calloway Other Provider [phone] Jesse Prather Attending Provider Unavailable Dr. Jesse Prather Other Provider Unavailable Dr. Ronnie Smith Emergency Provider Dr. Armen Gamble Admit Provider Dr. Armen Gamble Attending Provider Dr. Armen Gamble Other Provider Dr. Maxime Kahn Attending Provider Dr. Staci Johnston Attending Provider Dr. Staci Johnston Other Provider Dr. Isaias Lake Attending Provider Dr. Staci Johnston Referring Provider Melvin Weber Primary Care Provider Unavailabl e Unavailable Primary Care Provider Unavailabl e Gus DUONG, Melvin Primary Care Unavailable Arpit Jordan Attending Unavailable Hans King Admitting Unavailable Hans King Consulting Unavailable Melvin Weber Primary Care Unavailable Ethan Aguilar Attending Unavailable Domingo Calloway Consulting Unavailable Jesse Prather Consulting Unavailable Hans King Admitting Unavailable Jesse Prather Attending Unavailable Hans King Consulting Unavailable Melvin Weber Primary Care Unavailable Domingo Calloway Consulting Unavailable Jesse Prather Consulting Unavailable Hans King Attending Unavailable Ethan Aguilar Attending Unavailable Ethan Aguilar Consulting Unavailable Melvin Moody Primary Care Unavailable David Oliver Attending Unavailable Allergies Allergy Classification Reported Allergen(s) Allergy Type Date of Onset Reaction(s) Facility (5 sources) Penicillins (Antibiotic) drug allergy 11-11-2013 [facility] Work Phone: (17 sources) ertapenem Drug Allergy 07-05-2021 Rash [facility] (18 sources) Penicillins; Translations: [Penicillins] Allergy to substance 09-21-2020 Unknown [facility] (1 source) ertapenem Drug Allergy 12-07-2023 [facility] Repository Medications Current Medications Medication Drug Class(es) Dates Sig (Normalized) Sig (Original) acetaminophen 325 mg oral tablet (20 sources) Start: 09-01-2023 take 650 mg by mouth every four hours Acetaminophen Active 650 MG PO Q4H September 01, 2023 12:00am Start: 09-30-2020 End: 09-01-2023 take 1000 mg by mouth every six hours as needed Acetaminophen Discontinued 1000 MG PO EVERY 6 HOURS NEEDED 0 September 30, 2020 12:00am September 01, 2023 4:34pm Start: 07-06-2019 End: 09-30-2020 take 1 tablet by mouth every six hours Acetaminophen (Tylenol Extra Strength) 500 mg tablet Discontinued 500 MG PO EVERY 6 HOURS July 06, 2019 1:00am September 30, 2020 8:12pm Start: 06-30-2017 End: 07-01-2017 take 1000 mg by mouth every eight hours Acetaminophen Discontinued 1000 MG PO EVERY 8 HOURS June 30, 2017 1:00am July 01, 2017 3:26pm acetaminophen 325 mg / oxyCODONE hydrochloride 5 mg oral tablet (1 source) Opioid Agonist Start: 09-01-2023 take 1 tablet by mouth every six hours as needed Oxycodone-Acetaminophen Active 1 TABLET PO EVERY 6 HOURS NEEDED 20 5 September 01, 2023 albuterol 0.21 mg/ml inhalation solution (1 source) beta2-Adrener gic Agonist Start: 09-01-2023 take 0.63 mg by inhalation every four hours Albuterol Sulfate Active 0.63 MG INHALATION Q4H September 01, 2023 12:00am apixaban 5 mg oral tablet (18 sources) Factor Xa Inhibitor Start: 07-15-2021 End: 09-01-2023 take 1 tablet by mouth twice daily Apixaban (Eliquis) 5 mg Tablet Active 5 MG PO TWICE A DAY September 01, 2023 12:00am Food Supplemt, Lactose-Reduced (Ensure Enlive) 0.08 gram-1.5 kcal/mL Liquid (17 sources) Start: 07-15-2021 take 1 mL by mouth four times daily Food Supplemt, Lactose-Reduced (Ensure Enlive) 0.08 gram-1.5 kcal/mL Liquid Active 120 ML PO 4 TIMES DAILY July 15, 2021 2:55pm Start: 07-15-2021 End: 09-01-2023 take 1 mL by mouth four times daily Food Supplemt, Lactose-Reduced (Ensure Enlive) 0.08 gram-1.5 kcal/mL Liquid Discontinued 120 ML PO 4 TIMES DAILY 0 July 15, 2021 1:00am September 01, 2023 4:51pm Start: 07-15-2021 take 1 mL by mouth f our times daily Food Supplemt, Lactose-Reduced (Ensure Enlive) 0.08 gram-1.5 kcal/mL Liquid Active 120 ML PO 4 TIMES DAILY July 15, 2021 12:00am Start: 07-15-2021 take 1 mL by mouth f our times daily Food Supplemt, Lactose-Reduced (Ensure Enlive) 0.08 gram-1.5 kcal/mL Liquid Active 120 ML PO 4 TIMES DAILY July 152 1:00am levothyroxine sodium 0.2 mg oral tablet (20 sources) l-Thyroxine Start: 09-21-2020 take 200 ug by mouth once daily Levothyroxine Active 200 MCG PO DAILY September 21, 2020 12:00am Start: 11-07-2013 take 1 tablet by evelia th once daily LEVOTHYROXINE SODIUM 137 MCG TABS One tablet by mouth daily LEVOTHYROXINE SODIUM [id number] Alexandria Rea RN loratadine 10 mg oral tablet (18 sources) Start: 09-01-2023 take 1 tablet by mouth once daily Loratadine (Allerclear) 10 mg tablet Active 10 MG PO DAILY September 01, 2023 12:00am Start: 07-12-2021 End: 07-15-2021 take 10 mg by mouth once daily Loratadine Discontinued 10 MG PO DAILY July 12, 2021 1:00am July 15, 2021 2:52pm losartan potassium 50 mg oral tablet (20 sources) Angiotensin 2 Receptor Ceferino Start: 09-01-2023 take 50 mg by mouth once daily Losartan Active 50 MG PO DAILY September 01, 2023 12:00am Start: 06-19-2017 End: 07-07-2021 take 100 mg by mouth once daily Losartan Discontinued 100 MG PO DAILY June 19, 2017 1:00am July 07, 2021 11:40am Start: 05-15-2015 End: 06-19-2017 take 100 mg by mouth once daily Losartan Discontinued 100 MG PO DAILY May 15, 2015 1:00am June 19, 2017 1:23pm Start: 02-05-2014 take 1 tablet by evelia th once daily LOSARTAN POTASSIUM 25 MG TABS One tablet by mouth daily LOSARTAN POTASSIUM [id number] Jessie Waldron PA-C Start: 02-05-2014 take 1 tablet by evelia th twice daily LOSARTAN POTASSIUM 25 MG TABS One tablet by mouth twice daily LOSARTAN POTASSIUM [id number] Jessie Winkler RN Start: 02-05-2014 take 1 tablet by evelia th once daily LOSARTAN POTASSIUM 100 MG TABS One tablet by mouth daily LOSARTAN POTASSIUM [id number] Vanesa Perez RN Menthol / Zinc Oxide (20 sources) Start: 07-07-2021 Menthol-Zinc O xide (Calmoseptine) 0.44-20.6 % ointment Active 1 APPLIC TOPICAL THREE TIMES A DAY July 07, 2021 1:59pm Start: 07-07-2021 Menthol-Zinc O xide (Calmoseptine) 0.44-20.6 % ointment Active 1 APPLIC TOPICAL THREE TIMES A DAY July 07, 2021 2:59pm Start: 07-07-2021 End: 07-07-2021 Menthol-Zinc Oxide (Calmosep maximino) 0.44-20.6 % Ointment Discontinued 1 APPLIC TOPICAL THREE TIMES A DAY 0 July 07, 2021 11:37am July 07, 2021 2:59pm Start: 07-07-2021 End: 07-07-2021 Menthol-Zinc Oxide (Calmosep maximino) 0.44-20.6 % Ointment Discontinued 1 APPLIC TOPICAL THREE TIMES A DAY 0 July 07, 2021 12:00am July 07, 2021 1:59pm Start: 07-07-2021 End: 07-07-2021 Menthol-Zinc Oxide (Calmosep maximino) 0.44-20.6 % Ointment Discontinued 1 APPLIC TOPICAL THREE TIMES A DAY 0 July 07, 2021 1:00am July 07, 2021 2:59pm metoprolol tartrate 25 mg oral tablet (20 sources) beta-Adrenergic Ceferino Start: 09-01-2023 take 25 mg by mouth twice daily Metoprolol Tartrate Active 25 MG PO TWICE A DAY September 01, 2023 12:00am Start: 11-11-2013 End: 07-07-2021 take 25 mg by mouth twice daily Metoprolol Tartrate Di scontinued 25 MG PO TWICE A DAY May 15, 2015 1:00am July 07, 2021 11:41am Start: 11-11-2013 take 1 tablet by evelia once daily TOPROL XL 25 MG [id number] One tablet by mouth daily METOPROLOL SUCCINATE [id number] Maxime Kahn MD Start: 11-11-2013 take 1 tablet by evelia th once daily TOPROL XL 25 MG [id number] One tablet by mouth daily METOPROLOL SUCCINATE [id number] Maxime Kahn MD Start: 11-11-2013 take 1 tablet by evelia th once daily TOPROL XL 25 MG [id number] One tablet by mouth daily METOPROLOL SUCCINATE [id number] Maxime Kahn MD polyethylene glycol 3350 94969 mg powder for oral solution (17 sources) Osmotic Laxative Start: 07-12-2021 take 17 g by mouth once daily Polyethylene Glycol 3350 Active 17 GM PO DAILY July 12, 2021 1:00am triamcinolone acetonide 0.001 mg/mg topical ointment (1 source) Corticosteroid Start: 09-01-2023 Triamcinolone Acetonide Active 1 APPLIC TOPICAL Q12H September 01, 2023 12:00am Completed/Discontinued Medications Medication Drug Class(es) Dates Sig (Normalized) Sig (Original) aspirin 325 mg oral tablet (20 sources) Platelet Aggregation Inhibitor, Nonsteroidal Anti-inflammatory Drug Start: 06-30-2017 End: 07-06-2017 take 325 mg by mouth twice daily at mealtime Aspirin Discontinued 325 MG PO TWICE DAILY WITH MEALS July 01, 2017 3:26pm July 06, 2017 10:11pm Start: 05-15-2015 End: 06-30-2017 take 81 mg by mouth once daily Aspirin Discontinued 81 MG PO DAILY@0800 May 15, 2015 1:00am June 30, 2017 8:33am Start: 11-07-2013 take 1 tablet by evelia th once daily ASPIRIN 325 MG TABS One tablet by mouth daily ASPIRIN [id number] Alexandria Rea RN Start: 11-07-2013 take 1 tablet by eveila th once daily ASPIRIN 81 MG TABS One tablet by mouth daily ASPIRIN [id number] Arpit Sy MD Start: 11-07-2013 take 1 tablet by evelia th once daily ASPIRIN 81 MG TABS One tablet by mouth daily ASPIRIN [id number] Arpit Sy MD Start: 11-07-2013 take 1 tablet by evelia th once daily ASPIRIN EC 81 MG TBEC One tablet by mouth daily ASPIRIN [id number] Alexandria Rea RN atorvastatin 40 mg oral tablet (17 sources) HMG-CoA Reductase Inhibitor Start: 07-15-2021 End: 09-01-2023 take 40 mg by mouth at bedtime Atorvastatin Discontinued 40 MG PO AT BEDTIME 0 July 15, 2021 1:00am September 01, 2023 4:50pm cefdinir 300 mg oral capsule (17 sources) Cephalosporin Antibacterial Start: 07-07-2021 End: 07-07-2021 take 300 mg by mouth every twelve hours Cefdinir Discontinued 300 MG PO EVERY 12 HOURS 0 July 07, 2021 1:00am July 07, 2021 2:59pm cephalexin 500 mg oral capsule (20 sources) Cephalosporin Antibacterial Start: 09-23-2020 End: 09-30-2020 take 500 mg by mouth every six hours Cephalexin Discontinued 500 MG PO EVERY 6 HOURS September 23, 2020 4:19pm September 30, 2020 8:12pm docusate sodium 50 mg / sennosides, fdc 8.6 mg oral tablet (20 sources) Start: 07-07-2021 End: 09-01-2023 take 1 tablet by mouth twice daily as needed Sennosides-Docusat e Sodium (Stool Softener-Stimulant Laxat) 8.6-50 mg tablet Discontinued 1 TABLET PO TWICE DAILY NEEDED July 12, 2021 5:23pm September 01, 2023 4:52pm Start: 06-30-2017 End: 07-06-2017 Sennosides-Docusate Sodium ( Stool Softener-Stimulant Laxat) 1 TABLET tablet Discontinued 2 TABLET PO TWICE A DAY July 01, 2017 3:26pm July 06, 2017 10:09pm famotidine 20 mg oral tablet (20 sources) Histamine-2 Receptor Antagonist Start: 06-30-2017 End: 07-06-2017 take 20 mg by mouth once daily Famotidine Discontinued 20 MG PO DAILY July 01, 2017 3:26pm July 06, 2017 10:11pm fexofenadine hydrochloride 180 mg oral tablet (17 sources) Histamine-1 Receptor Antagonist Start: 09-21-2020 End: 09-01-2023 take 180 mg by mouth once daily Fexofenadine Discontinued 180 MG PO DAILY September 21, 2020 12:00am September 01, 2023 4:50pm ibuprofen 200 mg oral tablet (20 sources) Nonsteroidal Anti-inflammatory Drug Start: 06-07-2017 End: 06-30-2017 Ibuprofen Discontinued 200 MG PO NEEDED June 07, 2017 1:00am June 30, 2017 8:34am Start: 12-01-2016 ADVIL 200 MG T ABS as needed IBUPROFEN [id number] Arpit Sy MD melatonin 3 mg oral tablet (17 sources) Start: 07-07-2021 End: 09-01-2023 take 3 mg by mouth at bedtime as needed Melatonin Discontinued 3 MG PO AT BEDTIME NEEDED 0 July 07, 2021 1:00am September 01, 2023 4:51pm meloxicam 15 mg oral tablet (8 sources) Nonsteroidal Anti-inflammatory Drug Start: 11-07-2013 take 1 tablet by mouth once daily as needed MOBIC 15 MG TABS One tablet by mouth daily as needed on hold MELOXICAM [id number] Arpit Sy MD 24 hr mirabegron 50 mg extended release oral tablet (17 sources) beta3-Adrenergic Agonist Start: 09-21-2020 End: 09-01-2023 take 1 tablet by mouth once daily Mirabegron (Myrbetriq) 50 mg Tablet Extended Release 24 Hr Discontinued 50 MG PO DAILY September 21, 2020 12:00am September 01, 2023 4:45pm nitrofurantoin, macrocrystals 25 mg / nitrofurantoin, monohydrate 75 mg oral capsule (17 sources) Nitrofuran Antibacterial Start: 07-06-2019 End: 07-13-2019 take 1 capsule by mouth every twelve hours at mealtime Nitrofurantoin Monohyd/M-Cryst (Macrobid) 100 mg capsule Discontinued 100 MG PO Q12H 14 7 July 06, 2019 1:00am July 13, 2019 1:09am must administer with a meal/food nystatin 100 unt/mg topical powder (17 sources) Polyene Antifungal Start: 07-12-2021 End: 09-01-2023 Nystatin (Nystop) 100,000 unit/gram Powder Discontinued 1 APPLIC TOPICAL TWICE A DAY July 12, 2021 1:00am September 01, 2023 4:51pm oxyCODONE hydrochloride 5 mg oral tablet (17 sources) Opioid Agonist Start: 06-30-2017 End: 07-06-2017 take 5-10 mg by mouth every four hours as needed Oxycodone Discontinued 5 - 10 MG PO EVERY 4 HOURS NEEDED 56 7 June 30, 2017 1:00am July 06, 2017 10:10pm raloxifene hydrochloride 60 mg oral tablet (20 sources) Estrogen Agonist/Antagonist Start: 06-07-2017 End: 09-01-2023 take 60 mg by mouth once daily Raloxifene Discontinued 60 MG PO DAILY June 07, 2017 1:00am September 01, 2023 4:51pm Start: 11-07-2013 take 1 tablet by evelia th once daily EVISTA 60 MG TABS One tablet by mouth daily RALOXIFENE HCL [id number] Alexandria Rea, RN sotalol hydrochloride 80 mg oral tablet (17 sources) Antiarrhythmic Start: 07-06-2019 End: 09-01-2023 take 40 mg by mouth twice daily Sotalol Discontinued 40 MG PO TWICE A DAY July 06, 2019 1:00am September 01, 2023 4:51pm sulfamethoxazole 800 mg / trimethoprim 160 mg oral tablet (20 sources) Dihydrofolate Reductase Inhibitor Antibacterial, Sulfonamide Antimicrobial Start: 09-23-2020 End: 09-30-2020 take 1 tablet by mouth twice daily Sulfamethoxazole- Trimethoprim Discontinued 1 TABLET PO TWICE A DAY September 23, 2020 4:19pm September 30, 2020 8:12pm Start: 12-15-2017 End: 07-06-2019 take 1 tablet by mouth twice daily Sulfamethoxazole-Trimethoprim Discontinu ed 1 TABLET PO TWICE A DAY December 15, 2017 12:00am July 06, 2019 12:31pm Start: 12-08-2015 End: 12-01-2016 SULFAMETHOXAZOLE-TRIMETHOPRI M 800-160 MG TABS 1 tablet by mouth as directed SULFAMETHOXAZOLE-TRIMETHOPRIM [id number] Arpit Sy MD sulfaSALAzine 500 mg oral tablet (17 sources) Aminosalicylate Start: 07-05-2021 End: 09-01-2023 take 1 tablet by mouth twice daily Sulfasalazine (Azulfidine) 500 mg tablet Discontinued 500 MG PO TWICE A DAY July 05, 2021 1:00am September 01, 2023 4:52pm warfarin sodium 4 mg oral tablet (20 sources) Vitamin K Antagonist Start: 09-21-2020 End: 07-15-2021 Warfarin Discontinued 4 MG PO SUTUTH September 21, 2020 12:00am July 15, 2021 2:52pm Start: 07-06-2019 End: 07-15-2021 Warfarin (Jantoven) 3 mg tab let Discontinued 3 MG PO MOWEFRSA July 06, 2019 1:00am July 15, 2021 2:52pm Problems Active Problems Problem Classification Problem Date Documented Da te Episodic/Chronic Acute cerebrovascular disease (20 sources) Infarction of basal ganglia; Translations: [Cerebral infarction, unspecified] Chronic Cardiac dysrhythmias (20 sources) Atrial flutter; Translations: [Atrial fibrillation] Onset: 4 Resolved: 6 12-04-2015 Chronic Chronic ulcer of skin (20 sources) Pressure ulcer of buttock stage 2; Translations: [Pressure ulcer of right buttock, stage 2] Chronic Coagulation and hemorrhagic disorders (17 sources) Factor V Leiden mutation; Translations: [Activated protein C resistance] 07-01-2017 Chronic Delirium, dementia, and amnestic and other cognitive disorders (20 sources) Alzheimer's disease; Translations: [Alzheimer's disease, unspecified] Onset: 4 Chronic Disorders of lipid metabolism (20 sources) Hypercholesterolemia; Translations: [Hyperlipidemia] Onset: 4 11-11-2013 Chronic E Codes: Fall (20 sources) Fall; Translations: [Unspecified fall, initial encounter] Episodic Esophageal disorders (17 sources) Gastroesophageal reflux disease; Translations: [Gastro-esophageal reflux disease without esophagitis] 11-17-2017 Chronic Essential hypertension (20 sources) Hypertensive disorder; Translations: [Essential (primary) hypertension] Onset: 4 11-25-2013 Chronic Malaise and fatigue (20 sources) Asthenia; Translations: [Other malaise] Episodic Open wounds of extremities (18 sources) Tear of skin; Translations: [Laceration without foreign body of right forearm, initial encounter] Episodic Open wounds of extremities (18 sources) Tear of skin; Translations: [Laceration without foreign body of left forearm, initial encounter] Episodic Osteoarthritis (20 sources) Osteoarthritis of left knee joint; Translations: [Unilateral primary osteoarthritis, left knee] Chronic Osteoporosis (20 sources) Osteoporosis; Translations: [Age-related osteoporosis without current pathological fracture] Chronic Other aftercare (1 source) Long-term current use of anticoagulant; Translations: [director long term care (current) use of anticoagulants] 09-01-2023 Episodic Other connective tissue disease (17 sources) History of total knee arthroplasty; Translations: [Presence of right artificial knee joint] 09-21-2020 Chronic Other diseases of bladder and urethra (20 sources) Overactive bladder; Translations: [Overactive bladder] 09-24-2020 Chronic Other diseases of bladder and urethra (13 sources) Overactive bladder; Translations: [Hypertonicity of bladder] Chronic Other nervous system disorders (20 sources) Disorder of brain; Translations: [Encephalopathy, unspecified] 07-12-2021 Chronic Other nervous system disorders (14 sources) Encephalopathy, unspecified; Translations: [Encephalopathy, unspecified] Onset: Chronic Other non-traumatic joint disorders (17 sources) Knee joint effusion; Translations: [Effusion, unspecified knee] 07-06-2021 Episodic Other non-traumatic joint disorders (17 sources) Effusion of joint of left knee; Translations: [Effusion, left knee] 07-07-2021 Episodic Other non-traumatic joint disorders (8 sources) Effusion, unspecified knee; Translations: [Effusion of joint, lower leg] Episodic Other non-traumatic joint disorders (8 sources) Effusion, left knee; Translations: [Effusion of joint, lower leg] Episodic Other nutritional; endocrine; and metabolic disorders (5 sources) Body mass index (BMI) 31.0-31.9, adult; Translations: [Body mass index (BMI) 31.0-31.9, adult] Onset: 12-08-2015 Chronic Other upper respiratory disease (20 sources) Allergic rhinitis; Translations: [Allergic rhinitis, unspecified] 09-24-2020 Chronic Other upper respiratory disease (8 sources) Allergic rhinitis, unspecified; Translations: [Allergic rhinitis, cause unspecified] Chronic Phlebitis; thrombophlebitis and thromboembolism (20 sources) Deep venous thrombosis; Translations: [Acute embolism and thrombosis of unspecified deep veins of unspecified lower extremity] Episodic Rheumatoid arthritis and related disease (20 sources) Rheumatoid arthritis; Translations: [Rheumatoid arthritis, unspecified] Chronic Septicemia (except in labor) (17 sources) Sepsis; Translations: [Sepsis, unspecified organism] 09-24-2020 Episodic Skin and subcutaneous tissue infections (17 sources) Cellulitis of leg, excluding foot; Translations: [Cellulitis of left lower limb] 09-21-2020 Episodic Thyroid disorders (20 sources) Hypothyroidism; Translations: [Hypothyroidism, unspecified] Onset: 4 11-11-2013 Chronic Unclassified (1 source) Preoperative cardiovascular examination ; Translations: [Encounter for preprocedural cardiovascular examination] Onset: 7 02-13-2017 Unclassified (6 sources) Long-term drug therapy; Translations: [Long-term (current) use of other medications] Onset: 4 12-23-2013 Urinary tract infections (20 sources) Urinary tract infectious disease; Translations: [Urinary tract infection, site not specified] Episodic Past or Other Problems Problem Classification Problem Date Documented Date Episodic/Chronic Cardiac dysrhythmias (1 source) Cardiac dysrhythmias Onset: 11-20-2017 Conditions associated with dizziness or vertigo (5 sources) Dizziness and giddiness; Translations: [Dizziness and giddiness] Onset: 11-11-2013 11-11-2013 Episodic Deficiency and other anemia (1 source) Anemia, unspecified; Translations: [Anemia, unspecified] Onset: 12-11-2023 Episodic Fracture of lower limb (2 sources) Fracture of distal end of femur; Translations: [Unspecified fracture of lower end of unspecified femur, initial encounter for closed fracture] Onset: 05-17-2024 09-01-2023 Episodic Fracture of neck of femur (hip) (2 sources) Nondisplaced intertrochanteric fracture of right femur, initial encounter for closed fracture; Translations: [Fracture of unspecified part of neck of right femur, initial encounter for closed fracture] Onset: 12-11-2023 Episodic Other aftercare (4 sources) Long-term (current) use of other medications; Translations: [Other terminal superintendent (current) drug therapy] Onset: 12-23-2013 12-23-2013 Episodic Other aftercare (1 source) Other intermediate (current) drug therapy; Translations: [Other intermediate (current) drug therapy] Onset: 10-20-2023 Episodic Other lower respiratory disease (5 sources) Dyspnea on exertion; Translations: [Other forms of dyspnea] Onset: 12-01-2014 12-01-2014 Episodic Other screening for suspected conditions (not mental disorders or infectious disease) (5 sources) Electrocardiogram abnormal; Translations: [Abnormal electrocardiogram [ECG] [EKG]] Onset: 11-11-2013 11-11-2013 Episodic Residual codes; unclassified (5 sources) Family history of stroke; Translations: [Family history of stroke] 11-11-2013 Episodic Results Test Name Value Interpretation Reference Range Facility CBC-Complete Blood Cnt No Di ffon 12-12-2023 HCT Normal 37-47 [facility] Comment on above: Result Comment: Canc elled via OM: Order cancelled - Patient discharged Performed By: #### L [id number], L100.0100, [id number] #### [facility] [address] [place], [address] HGB Normal 12.0-15.0 [facility] Comment on above: Result Comment: Canc elled via OM: Order cancelled - Patient discharged Performed By: #### L [id number], L100.0100, [id number] #### [facility] [address] [place], [address] MCH Normal 27.0-32.0 [facility] Comment on above: Result Comment: Canc elled via OM: Order cancelled - Patient discharged Performed By: #### L [id number], L100.0100, [id number] #### [facility] [address] [place], [address] MCHC Normal 32-36 [facility] Comment on above: Result Comment: Canc elled via OM: Order cancelled - Patient discharged Performed By: #### L [id number], L100.0100, [id number] #### [facility] [address] [place], [address] MCV Normal 81-99 [facility] Comment on above: Result Comment: Canc elled via OM: Order cancelled - Patient discharged Performed By: #### L [id number], L100.0100, [id number] #### [facility] [address] [place], [address] PLT Normal 150-450 [facility] Comment on above: Result Comment: Canc elled via OM: Order cancelled - Patient discharged Performed By: #### L [id number], L100.0100, [id number] #### [facility] [address] [place], [address] RBC Normal 4.2-5.4 [facility] Comment on above: Result Comment: Canc elled via OM: Order cancelled - Patient discharged Performed By: #### L [id number], L100.0100, [id number] #### [facility] [address] [place], [address] RDW CV Normal 11.6-14.6 [facility] Comment on above: Result Comment: Canc elled via OM: Order cancelled - Patient discharged Performed By: #### L [id number], L100.0100, [id number] #### [facility] [facility] [address] [place], [address] RDW SD Normal 35.1-43.9 [facility] Comment on above: Result Comment: Canc elled via OM: Order cancelled - Patient discharged Performed By: #### L 500.4050, L100.0100, L501.9520 #### [facility] [address] [place], [address] WBC Normal 4.4-11.0 [facility] Comment on above: Result Comment: Canc elled via OM: Order cancelled - Patient discharged Performed By: #### L 500.4050, L100.0100, L501.9520 #### [facility] [address] [place], [address] CBC-Complete Blood Cnt No Di ffon 12-11-2023 Erythrocyte distribution width (RBC) [Ratio] 15.1 % High 11.6-14.6 [facility] Comment on above: Performed By: #### L 100.0500, L500.2500 #### [facility] [address] [place], [address] Hematocrit (Bld) [Volume fraction] 25.7 % Low 37-47 [facility] Comment on above: Performed By: #### L 100.0500, L500.2500 #### [facility] [address] [place], [address] Hemoglobin (Bld) [Mass/Vol] 8.0 g/dL Low 12.0-15.0 [facility] Comment on above: Performed By: #### L 100.0500, L500.2500 #### [facility] [address] [place], [address] MCH (RBC) [Entitic mass] 29.1 pg Normal 27.0-32.0 [facility] Comment on above: Performed By: #### L 100.0500, L500.2500 #### [facility] [address] [place], [address] MCHC (RBC) [Mass/Vol] 31.1 g/dL Low 32-36 [facility] Comment on above: Performed By: #### L 100.0500, L500.2500 #### [facility] [address] [place], [address] MCV (RBC) [Entitic vol] 93.5 fL Normal 81-99 [facility] Comment on above: Performed By: #### L 100.0500, L500.2500 #### [facility] [address] [place], [address] Platelet mean volume (Bld) [Entitic vol] 10.3 fL Normal 6.2-12.0 [facility] Comment on above: Performed By: #### L 100.0500, L500.2500 #### [facility] [address] [place], [address] Platelets (Bld) [#/Vol] 236 10*3/uL Normal 150-450 [facility] Comment on above: Performed By: #### L 100.0500, L500.2500 #### [facility] [address] [place], [address] RBC (Bld) [#/Vol] 2.75 10*6/uL Low 4.2-5.4 [facility] Comment on above: Performed By: #### L 100.0500, L500.2500 #### [facility] [address] [place], [address] RDW SD 51.2 fl High 35.1-43.9 [facility] Comment on above: Performed By: #### L 100.0500, L500.2500 #### [facility] [address] [place], [address] WBC (Bld) [#/Vol] 7.8 10*3/uL Normal 4.4-11.0 [facility] Comment on above: Performed By: #### L 100.0500, L500.2500 #### [facility] [address] [place], [address] HH, Hemoglobin AND Hematocri ton 12-11-2023 Hematocrit (Bld) [Volume fraction] 27.2 % Low 37-47 [facility] Comment on above: Performed By: #### L 100.0600 #### [facility] [address] [place], [address] Hemoglobin (Bld) [Mass/Vol] 8.5 g/dL Low 12.0-15.0 [facility] Comment on above: Performed By: #### L 100.0600 #### [facility] [address] [place], [address] Basic Metabolic Profile (BMP )on 12-10-2023 BUN/CRE 28.7 RATIO High 10-20 [facility] Comment on above: Performed By: #### L 100.0500, L500.2500 #### [facility] [address] [place], [address] CA,Total 7.9 mg/dL Low 8.5-10.1 [facility] Comment on above: Performed By: #### L 100.0500, L500.2500 #### [facility] [address] [place], [address] Chloride [Moles/Vol] 114 mmol/L High 98-107 [facility] Comment on above: Performed By: #### L 100.0500, L500.2500 #### [facility] [address] [place], [address] CO2 [Moles/Vol] 28.0 mmol/L Normal 21.0-32.0 [facility] Comment on above: Performed By: #### L 100.0500, L500.2500 #### [facility] [address] [place], [address] Creatinine [Mass/Vol] 0.84 mg/dL Normal 0.55-1.02 [facility] Comment on above: Result Comment: The validity of the calculated GFR GFRAA in patients over 70 years has not been determined. Clinical correlation is essential. Performed By: #### L 100.0500, L500.2500 #### [facility] [address] [place], [address] ECRCL 46.64 ml/min Normal [facility] Comment on above: Performed By: #### L 100.0500, L500.2500 #### [facility] [address] [place], [address] EST GFR - AA 83 mL/min Normal >60 [facility] Comment on above: Result Comment: Afri can [place] GFR Calc Performed By: #### L 100.0500, L500.2500 #### [facility] [address] [place], [address] GAP 3 Low 5-15 [facility] Comment on above: Performed By: #### L 100.0500, L500.2500 #### [facility] [address] [place], [address] GFR/1.73 sq M.predicted among non-blacks MDRD (S/P/Bld) [Vol rate/Area] 68 mL/min/{1.73_m2} Normal >60 [facility] Comment on above: Result Comment: Non- GFR Calc Performed By: #### L 100.0500, L500.2500 #### [facility] [address] [place], [address] Glucose [Mass/Vol] 106 mg/dL Normal 74-106 [facility] Comment on above: Result Comment: Fast ing Glucose result from 100 to 125 mg/dL suggests IMPAIRED HOMEOSTASIS per A.D.A. criteria. Performed By: #### L 100.0500, L500.2500 #### [facility] [address] [place], [address] Potassium [Moles/Vol] 3.8 mmol/L Normal 3.5-5.1 [facility] Comment on above: Performed By: #### L 100.0500, L500.2500 #### [facility] [address] [place], [address] Sodium [Moles/Vol] 145 mmol/L Normal 136-145 [facility] Comment on above: Performed By: #### L 100.0500, L500.2500 #### [facility] [address] [place], [address] Urea nitrogen [Mass/Vol] 24 mg/dL High 7-18 [facility] Comment on above: Performed By: #### L 100.0500, L500.2500 #### [facility] [address] [place], [address] CBC-Complete Blood Cnt No Lucrecia ffon 12-10-2023 Erythrocyte distribution width (RBC) [Ratio] 14.7 % High 11.6-14.6 [facility] Comment on above: Performed By: #### L 100.0500, L500.2500 #### [facility] [address] [place], [address] Hematocrit (Bld) [Volume fraction] 22.7 % Low 37-47 [facility] Comment on above: Performed By: #### L 100.0500, L500.2500 #### [facility] [address] [place], [address] Hemoglobin (Bld) [Mass/Vol] 7.0 g/dL Low 12.0-15.0 [facility] Comment on above: Performed By: #### L 100.0500, L500.2500 #### [facility] [address] [place], [address] MCH (RBC) [Entitic mass] 29.7 pg Normal 27.0-32.0 [facility] Comment on above: Performed By: #### L 100.0500, L500.2500 #### [facility] [address] [place], [address] MCHC (RBC) [Mass/Vol] 30.8 g/dL Low 32-36 [facility] Comment on above: Performed By: #### L 100.0500, L500.2500 #### [facility] [address] [place], [address] MCV (RBC) [Entitic vol] 96.2 fL Normal 81-99 [facility] Comment on above: Performed By: #### L 100.0500, L500.2500 #### [facility] [address] [place], [address] Platelet mean volume (Bld) [Entitic vol] 10.5 fL Normal 6.2-12.0 [facility] Comment on above: Performed By: #### L 100.0500, L500.2500 #### [facility] [address] [place], [address] Platelets (Bld) [#/Vol] 225 10*3/uL Normal 150-450 [facility] Comment on above: Performed By: #### L 100.0500, L500.2500 #### [facility] [address] [place], [address] RBC (Bld) [#/Vol] 2.36 10*6/uL Low 4.2-5.4 [facility] Comment on above: Performed By: #### L 100.0500, L500.2500 #### [facility] [address] [place], [address] RDW SD 51.4 fl High 35.1-43.9 [facility] Comment on above: Performed By: #### L 100.0500, L500.2500 #### [facility] [address] [place], [address] WBC (Bld) [#/Vol] 8.7 10*3/uL Normal 4.4-11.0 [facility] Comment on above: Performed By: #### L 100.0500, L500.2500 #### [facility] [address] [place], [address] MR/POSTOP.ANEon 12-10-2023 MR/POSTOP.[facility] Medical Records Department [address] [place] [address] Anesthesia Postop Eval I 12/10/23 0907 MR#: [id number] Acct: [id number] Name: SG VELASCO Rep #: [id number] : 1935 88 From: Shad Rubalcava MD PCP: Dr. Melvin Weber MD Status:ADM IN Y Race: C Location: MS3 [id number] Anesthesia: Postop Eval I Current Vital Signs Temperature: 97 F Pulse Rate: 80 Blood Pressure: 126/60 Respiratory Rate: 16 Pulse Ox: 95 Oxygen Delivery Method: Room Air Assessment Airway patent: Yes Spontaneous unlabored respirations: Yes Mental status: Awake nausea: No Vomiting: No Anesthesia Complication: No Fluid Hydration Crystalloid volume administer (ml): 400 Total IV fluid infused: 400 Progress Note Anesthesia document: Postop Eval 1 completed: Yes 12/10/23 0908 Date Shad Rubalcava MD Cosigner Signature: Date CC: Signed Normal [facility] Urine Cultureon 12-10-2023 [facility] RESULTS CALLED TO PREET Samantha ALTAMIRANO 12/09/23 0811 Kellee Molina. REPORT READ BACK BY . Bacteria Ur Cult Copy of report sent to Infection Control Printer [id number] 12/09/23 0817 GUERDA. ESBL Escherichia coli Vesper Count >100,000 MARKER A ESBL producing Organism A Proteus mirabilis Vesper Count 1000-10,000 ESBL Escherichia coli: REACTION Amikacin Islt TUAN <=2 S cefoTEtan Islt TUAN <=4 S Meropenem Islt TUAN <=0.25 S Tetracycline Islt TUAN <=1 S Cefuroxime Islt TUAN >=64 R ESBL Escherichia coli: REACTION Ampicillin Islt TUAN >=32 R Ampicillin+Sulbac Islt TUAN 16 I ceFAZolin Islt TUAN >=64 R Cefepime Islt TUAN 16 R cefTRIAXone Islt TUAN >=64 R Ciprofloxacin Islt TUAN >=4 R Ertapenem Islt TUAN <=0.12 S B-Lactamase Extended Susc Islt POS Gentamicin Islt TUAN <=1 S Imipenem Islt TUAN <=0.25 S levoFLOXacin Islt TUAN >=8 R Nitrofurantoin Islt TUAN 64 I Pip+Tazo Islt TUAN <=4 S Tobramycin Islt TUAN <=1 S TMP SMX Islt TUAN <=20 S Proteus mirabilis: REACTION Ampicillin Islt TUAN >=32 R Ampicillin+Sulbac Islt TUAN 8 S ceFAZolin Islt TUAN 8 S Cefepime Islt TUAN <=0.12 S cefTRIAXone Islt TUAN <=0.25 S Ciprofloxacin Islt TUAN >=4 R Ertapenem Islt TUAN <=0.12 S Gentamicin Islt TUAN <=1 S levoFLOXacin Islt TUAN >=8 R Nitrofurantoin Islt TUAN 128 R Pip+Tazo Islt TUAN <=4 S Tobramycin Islt TUAN <=1 S TMP SMX Islt TUAN >=320 R Normal [facility] Comment on above: Performed By: #### L 500.4050, L100.0100, L501.9520 #### [facility] [address] [place], [address] Basic Metabolic Profile (BMP )on 12-09-2023 BUN/CRE 31.0 RATIO High 10-20 [facility] Comment on above: Performed By: #### L 500.4050, L100.0100, L501.9520 #### [facility] [address] [place], [address] CA,Total 8.1 mg/dL Low 8.5-10.1 [facility] Comment on above: Performed By: #### L 500.4050, L100.0100, L501.9520 #### [facility] [address] [place], [address] Chloride [Moles/Vol] 112 mmol/L High 98-107 [facility] Comment on above: Performed By: #### L 500.4050, L100.0100, L501.9520 #### [facility] [address] [place], [address] CO2 [Moles/Vol] 28.0 mmol/L Normal 21.0-32.0 [facility] Comment on above: Performed By: #### L 500.4050, L100.0100, L501.9520 #### [facility] [address] [place], [address] Creatinine [Mass/Vol] 0.71 mg/dL Normal 0.55-1.02 [facility] Comment on above: Result Comment: The validity of the calculated GFR GFRAA in patients over 70 years has not been determined. Clinical correlation is essential. Performed By: #### L 500.4050, L100.0100, L501.9520 #### [facility] [address] [place], [address] ECRCL 48.97 ml/min Normal [facility] Comment on above: Performed By: #### L 500.4050, L100.0100, L501.9520 #### [facility] [address] [place], [address] EST GFR - AA 100 mL/min Normal >60 [facility] Comment on above: Result Comment: Afri can [place] GFR Calc Performed By: #### L 500.4050, L100.0100, L501.9520 #### [facility] [address] [place], [address] GAP 3 Low 5-15 [facility] Comment on above: Performed By: #### L 500.4050, L100.0100, L501.9520 #### [facility] [address] [place], [address] GFR/1.73 sq M.predicted among non-blacks MDRD (S/P/Bld) [Vol rate/Area] 83 mL/min/{1.73_m2} Normal >60 [facility] Comment on above: Result Comment: Non- GFR Calc Performed By: #### L 500.4050, L100.0100, L501.9520 #### [facility] [address] [place], [address] Glucose [Mass/Vol] 91 mg/dL Normal 74-106 [facility] Comment on above: Performed By: #### L 500.4050, L100.0100, L501.9520 #### [facility] [address] [place], [address] Potassium [Moles/Vol] 4.1 mmol/L Normal 3.5-5.1 [facility] Comment on above: Performed By: #### L 500.4050, L100.0100, L501.9520 #### [facility] [address] [place], [address] Sodium [Moles/Vol] 143 mmol/L Normal 136-145 [facility] Comment on above: Performed By: #### L 500.4050, L100.0100, L501.9520 #### [facility] [address] [place], [address] Urea nitrogen [Mass/Vol] 22 mg/dL High 7-18 [facility] Comment on above: Performed By: #### L 500.4050, L100.0100, L501.9520 #### [facility] [address] [place], [address] CBC W/Diff, Automatedon 07-2 Absolute Lymph 1.47 X10 3/uL Normal 0.83-4.51 [facility] Comment on above: Performed By: #### L 300.4310, L500.2500, L501.9520, L100.0100, L300.3900 #### [facility] [address] [place], [address] Absolute Neut 4.8 X10 3/uL Normal 2.0-7.7 [facility] Comment on above: Performed By: #### L 300.4310, L500.2500, L501.9520, L100.0100, L300.3900 #### [facility] [address] [place], [address] Basophils/100 WBC (Bld) 0.6 % Normal 0-1 [facility] Comment on above: Performed By: #### L 300.4310, L500.2500, L501.9520, L100.0100, L300.3900 #### [facility] [address] [place], [address] Eosinophils/100 WBC (Bld) 9.4 % High 0-5 [facility] Comment on above: Performed By: #### L 300.4310, L500.2500, L501.9520, L100.0100, L300.3900 #### [facility] [address] [place], [address] Erythrocyte distribution width (RBC) [Ratio] 14.6 % Normal 11.6-14.6 [facility] Comment on above: Performed By: #### L 300.4310, L500.2500, L501.9520, L100.0100, L300.3900 #### [facility] [address] [place], [address] Hematocrit (Bld) [Volume fraction] 23.8 % Low 37-47 [facility] Comment on above: Performed By: #### L 300.4310, L500.2500, L501.9520, L100.0100, L300.3900 #### [facility] [address] [place], [address] Hemoglobin (Bld) [Mass/Vol] 7.6 g/dL Low 12.0-15.0 [facility] Comment on above: Performed By: #### L 300.4310, L500.2500, L501.9520, L100.0100, L300.3900 #### [facility] [address] [place], [address] IG% 0.400 Normal 0.0-0.9 [facility] Comment on above: Result Comment: IG% - Immature Granulocytes (promyelocytes, myelocytes and metamyelocytes) > 1% indicates that a LEFT SHIFT is Present. Performed By: #### L 300.4310, L500.2500, L501.9520, L100.0100, L300.3900 #### [facility] [address] [place], [address] Lymphocytes/100 WBC (Bld) 18.9 % Low 19-41 [facility] Comment on above: Performed By: #### L 300.4310, L500.2500, L501.9520, L100.0100, L300.3900 #### [facility] [address] [place], [address] MCH (RBC) [Entitic mass] 31.1 pg Normal 27.0-32.0 [facility] Comment on above: Performed By: #### L 300.4310, L500.2500, L501.9520, L100.0100, L300.3900 #### [facility] [address] [place], [address] MCHC (RBC) [Mass/Vol] 31.9 g/dL Low 32-36 [facility] Comment on above: Performed By: #### L 300.4310, L500.2500, L501.9520, L100.0100, L300.3900 #### [facility] [address] [place], [address] MCV (RBC) [Entitic vol] 97.5 fL Normal 81-99 [facility] Comment on above: Performed By: #### L 300.4310, L500.2500, L501.9520, L100.0100, L300.3900 #### [facility] [address] [place], [address] Monocytes/100 WBC (Bld) 8.6 % Normal 0-10 [facility] Comment on above: Performed By: #### L 300.4310, L500.2500, L501.9520, L100.0100, L300.3900 #### [facility] [address] [place], [address] Neutrophils/100 WBC (Bld) 62.1 % Normal 47-70 [facility] Comment on above: Performed By: #### L 300.4310, L500.2500, L501.9520, L100.0100, L300.3900 #### [facility] [address] [place], [address] Nucleated RBC (Bld) [#/Vol] 0 10*3/uL Normal 0-5 [facility] Comment on above: Performed By: #### L 300.4310, L500.2500, L501.9520, L100.0100, L300.3900 #### [facility] [address] [place], [address] Platelet mean volume (Bld) [Entitic vol] 10.2 fL Normal 6.2-12.0 [facility] Comment on above: Performed By: #### L 300.4310, L500.2500, L501.9520, L100.0100, L300.3900 #### [facility] [address] [place], [address] Platelets (Bld) [#/Vol] 221 10*3/uL Normal 150-450 [facility] Comment on above: Performed By: #### L 300.4310, L500.2500, L501.9520, L100.0100, L300.3900 #### [facility] [address] [place], [address] RBC (Bld) [#/Vol] 2.44 10*6/uL Low 4.2-5.4 [facility] Comment on above: Performed By: #### L 300.4310, L500.2500, L501.9520, L100.0100, L300.3900 #### [facility] [address] [place], [address] RDW SD 51.4 fl High 35.1-43.9 [facility] Comment on above: Performed By: #### L 300.4310, L500.2500, L501.9520, L100.0100, L300.3900 #### [facility] [address] [place], [address] WBC (Bld) [#/Vol] 7.8 10*3/uL Normal 4.4-11.0 [facility] Comment on above: Performed By: #### L 300.4310, L500.2500, L501.9520, L100.0100, L300.3900 #### [facility] [address] [place], [address] HH, Hemoglobin AND Hematocri ton 12-09-2023 Hematocrit (Bld) [Volume fraction] 26.4 % Low 37-47 [facility] Comment on above: Performed By: #### L 100.0600 #### [facility] [address] [place], [address] Hemoglobin (Bld) [Mass/Vol] 8.1 g/dL Low 12.0-15.0 [facility] Comment on above: Performed By: #### L 100.0600 #### [facility] [address] [place], [address] Hip 1 view with Pelvison Hip 1 view with Pelvis [facility] Imaging Services [address] [place] [address] Hip 1 view with Pelvis MR#: [id number] Acct: [id number] Name: SG VELASCO Rep #: [id number] : 1935 F 88 From: Ghanshyam Celmens MD PCP: Dr. Melvin Weber MD Status: ADM IN Study: Hip 1 view with Pelvis Date of Exam: 12/09/23 Exam# [id number] Ordering Dr: Domingo Calloway MD [id number] STUDY: X-RAY - PELVIS AND RIGHT HIP REASON FOR EXAM: Female, 88 years old. FX TECHNIQUE: Frontal and lateral fluoroscopic views of the pelvis and hip. Reference air kerma (ka,r): 50.62 mGy COMPARISON: Pelvis x-ray 12/07/2023. FINDINGS: Femoral intramedullary fidelina with distal interlocking screw and femoral neck fixation screw spanning intertrochanteric fracture. Gross alignment. RAD/Hip 1 view with Pelvis IMPRESSION: Limited diagnostic information. Please see procedural report. Electronically Signed: Ghanshyam Clemens MD (Brooks) at 12:36 EDT Reading Location ID and State: [facility] / [place] , Service support , CC: Dr. Melvin Weber MD; Dr. Domingo Calloway MD Rat Exterminator: Signed Normal [facility] [id number] 12-09-2023 MR/POSTOPAN2 [facility] Medical Records Department [address] [place] [address] Anesthesia Postop Eval II 12/09/23 1631 MR#: [id number] Acct: [id number] Name: SG VELASCO Rep #: [id number] : 1935 88 From: Armen Palmer MD PCP: Dr. Melvin Weber MD Status:ADM IN Y Race: C Location: [place] [address] Anesthesia Postop Eval I Sum Anesthesia Postop Eval I Summary Anesthesia Postop Eval I Summary: Anesthesia Postop Eval I: Assessment Summary Airway patent Spontaneous unlabored respirations Mental status nausea Vomiting Anesthesia Postop Eval I: Fluid Summary Crystalloid volume administer (ml) Colloids volume administered ( ml) Blood Product volume administered (ml) Total IV fluid infused Anesthesia Postop Eval I: Summary Notes Anesthesia Complication Anesthesia Complication Comment: Post-operative progress note Anesthesia: Postop Eval II Evaluation Mental status: Awake Pain Level: 0 nausea: No Vomiting: No 12/09/23 1631 Date Armen Palmer MD Cosigner Signature: Date CC: Signed Normal [facility] Operative Reporton Operative Report [facility] Medical Records Department [address] [place] [address] Operative Report 12/09/23 0914 MR#: [id number] Acct: [id number] Name: SG VELASCO Rep #: [id number] : 1935 88 From: Domingo Calloway MD PCP: Dr. Melvin Weber MD Status:ADM IN Location: [place] [address] Problems Associated Problem List Diagnoses (1) Fracture of right hip: Operative Report Date of Procedure: 12/09/23 Preoperative diagnosis: Right hip displaced intertrochanteric fracture Postoperative diagnosis: Same Title of operation: Right hip open reduction internal fixation, intramedullary nail fixation, locked Surgeon: Dr. Domingo Calloway Building Construction Contractor: Martha Reynolds PA-C Anesthesia: General, Dr. Rubalcava EBL: 20 Fluid in: 400 Urine output: 40 Medications: Ancef 2 g, 1 g IV preoperatively Indications for surgery: Patient is an 88-year-old female sustained a hip fracture . Patient had been on Eliquis. Surgery scheduled for just greater than 48 hours after her last dose. Patient and their family explained diagnosis and treatment options. Patient evaluated by the medical services. Patient did wish to have surgery. Appropriate informed consent obtained and signed. Findings: Patient had a displaced intertrochanteric hip fracture. They underwent standard reduction, internal fixation using a Ccii short gamma nail. X-rays taken throughout. ice cream freezer assistant, physician child nutrition assistant, was utilized throughout the entire procedure. They were vital to the procedure from beginning to end. They help with patient transfer, patient padding and positioning, fracture reduction, maintenance of fracture reduction, internal fixation of implants, wound closure, bandage application, patient transfer. Without assistant director of security, surgical time would have been significantly increased and surgical outcome could have been less optimal. Procedure: Patient was taken to the operating room. Placed under a general anesthetic and transferred to the operating table with the help of the child nutrition assistant. With the help of the child nutrition assistant patient was prepped and padded for surgery. Operative side foot was well-padded and placed in the traction boot. Patient had a right ankle contracture. Also patient noted to have previous right distal femoral fracture so positioning and traction were done very carefully. Uninjured lower extremity was abducted and flexed out of harms way. MANJINDER conti and BLOSSOMs utilized. Fluoroscopy was brought in. With the help of the child nutrition assistant and manipulation of the limb, reduction was nicely obtained as verified under AP lateral and oblique fluoroscopic images. . Operative hip/thigh was prepped padded draped in usual orthopedic sterile fashion for the procedure. Longitudinal incision was made just proximal to the greater trochanter. Taken through skin and subcutaneous tissue. Sharp awl was placed on the tip of the greater trochanter. Position verified under AP and lateral fluoroscopic images. This was then taken down inside the bone. Slightly bent ball-tipped guide fidelina was then placed from the tip of the greater trochanter into the intra-medullary canal of the femur. Its position verified radiographically. Reamer was then done over the tip of this with the help of the child nutrition assistant holding the soft tissue protector appropriately. Once reaming was done we placed the short 125??? angle device over the guidepin. This was easily introduced. Guide fidelina removed. Outrigger device was utilized to position a guidepin from the lateral cortex of the femur across the fracture site and into the femoral head in a good position centrally, as noted on AP lateral and oblique fluoroscopic images. This was measured. Appropriate reaming done. Appreciate length lag screw was placed from the lateral cortex of the femur into the femoral head. A small amount of the screw was noted to be protruding laterally as planned. No cartilage penetration of the femoral head noted on any x-ray. Fracture was then compressed with the outrigger device. Proximal cap screw was placed by the child nutrition assistant seated down completely, confirmed, and then loosened one fourth turn. We then used the outrigger device to place distal cross locking screw under standard technique. This was confirmed to be of adequate length in good position on AP and lateral images. Outrigger device removed. Final set of AP and lateral proximal x-rays taken and saved. Incisions thoroughly irrigated. Closing by the child nutrition assistant with deep 0 Vicryl, mid layer 0 Vicryl, inverted 2-0 Vicryl, skin rosi. Puncture wounds closed with inverted 2-0 Vicryl and rosi. Xeroform 4 x 4's ABD tape applied. Patient was awoken from their anesthetic, transferred back to their own bed with the help of the child nutrition assistant and into recovery room in satisfactory condition. Patient will continue to be admitted to the hospital under the hospitalis (more content not included)... Normal [facility] Partial Thromboplast Timeon 12-09-2023 aPTT Coag (Bld) [Time] 40.2 s High 24.1-36.2 [facility] Comment on above: Performed By: #### L 300.4310, L500.2500, L501.9520, L100.0100, L300.3900 #### [facility] [address] [place], [place], [id number] Prothrombin Time w/INRon INR Coag (PPP) [Relative time] 1.5 {INR} Normal [facility] Comment on above: Performed By: #### L 300.4310, L500.2500, L501.9520, L100.0100, L300.3900 #### [facility] [address] [facility] [place], [address] PT Coag (PPP) [Time] 17.7 s High 11.7-14.9 [facility] Comment on above: Performed By: #### L 300.4310, L500.2500, L501.9520, L100.0100, L300.3900 #### [facility] [address] [place], [address] Thyroid Stim Hormone (TSH)on 12-09-2023 TSH 0.21 uIU/mL Low 0.358-3.74 [facility] Comment on above: Performed By: #### L 500.4050, L100.0100, L501.9520 #### [facility] [address] [place], [address] [id number] 12-08-2023 ANTIBODY ID D Normal [facility] Comment on above: Order Comment: 108.2 Performed By: #### L 500.4050, L100.0100, L501.9520 #### [facility] [address] [place], [address] BRCon 12-08-2023 RC Normal [facility] Comment on above: Result Comment: [id number] ON RC TRANSFUSED 12/10/23 0929 [id number] ON RC NOT AVAILABLE Performed By: #### L 500.4050, L100.0100, L501.9520 #### [facility] [address] [place], [address] Basic Metabolic Profile (BMP )on 12-08-2023 BUN/CRE 27.7 RATIO High 10-20 [facility] Comment on above: Performed By: #### L 500.4050, L100.0100, L501.9520 #### [facility] [address] [place], [address] CA,Total 7.9 mg/dL Low 8.5-10.1 [facility] Comment on above: Performed By: #### L 500.4050, L100.0100, L501.9520 #### [facility] [address] [place], [address] Chloride [Moles/Vol] 112 mmol/L High 98-[address] [facility] Comment on above: Performed By: #### L 500.4050, L100.0100, L501.9520 #### [facility] [address] [place], [address] CO2 [Moles/Vol] 29.0 mmol/L Normal 21.0-32.0 [facility] Comment on above: Performed By: #### L 500.4050, L100.0100, L501.9520 #### [facility] [address] [place], [address] Creatinine [Mass/Vol] 0.83 mg/dL Normal 0.55-1.02 [facility] Comment on above: Result Comment: The validity of the calculated GFR GFRAA in patients over 70 years has not been determined. Clinical correlation is essential. Performed By: #### L 500.4050, L100.0100, L501.9520 #### [facility] [address] [place], [address] ECRCL 47.20 ml/min Normal [facility] Comment on above: Performed By: #### L 500.4050, L100.0100, L501.9520 #### [facility] [address] [place], [address] EST GFR - AA 84 mL/min Normal >60 [facility] Comment on above: Result Comment: Afri can [place] GFR Calc Performed By: #### L 500.4050, L100.0100, L501.9520 #### [facility] [address] [place], [address] GAP 1 Low 5-15 [facility] Comment on above: Performed By: #### L 500.4050, L100.0100, L501.9520 #### [facility] [address] [place], [address] GFR/1.73 sq M.predicted among non-blacks MDRD (S/P/Bld) [Vol rate/Area] 69 mL/min/{1.73_m2} Normal >60 [facility] Comment on above: Result Comment: Non- GFR Calc Performed By: #### L 500.4050, L100.0100, L501.9520 #### [facility] [address] [place], [address] Glucose [Mass/Vol] 103 mg/dL Normal 74-106 [facility] Comment on above: Result Comment: Fast ing Glucose result from 100 to 125 mg/dL suggests IMPAIRED HOMEOSTASIS per A.D.A. criteria. Performed By: #### L 500.4050, L100.0100, L501.9520 #### [facility] [address] [place], [address] Potassium [Moles/Vol] 4.1 mmol/L Normal 3.5-5.1 [facility] Comment on above: Performed By: #### L 500.4050, L100.0100, L501.9520 #### [facility] [address] [place], [address] Sodium [Moles/Vol] 142 mmol/L Normal 136-145 [facility] Comment on above: Performed By: #### L 500.4050, L100.0100, L501.9520 #### [facility] [address] [place], [address] Urea nitrogen [Mass/Vol] 23 mg/dL High 7-18 [facility] Comment on above: Performed By: #### L 500.4050, L100.0100, L501.9520 #### [facility] [address] [place], [address] CBC-Complete Blood Cnt No Di ffon 12-08-2023 Erythrocyte distribution width (RBC) [Ratio] 14.9 % High 11.6-14.6 [facility] Comment on above: Performed By: #### L 500.4050, L100.0100, L501.9520 #### [facility] [address] [place], [address] Hematocrit (Bld) [Volume fraction] 22.8 % Low 37-47 [facility] Comment on above: Performed By: #### L 500.4050, L100.0100, L501.9520 #### [facility] [address] [place], [address] Hemoglobin (Bld) [Mass/Vol] 7.1 g/dL Low 12.0-15.0 [facility] Comment on above: Performed By: #### L 500.4050, L100.0100, L501.9520 #### [facility] [address] [place], [address] MCH (RBC) [Entitic mass] 29.7 pg Normal 27.0-32.0 [facility] Comment on above: Performed By: #### L 500.4050, L100.0100, L501.9520 #### [facility] [address] [place], [address] MCHC (RBC) [Mass/Vol] 31.1 g/dL Low 32-36 [facility] Comment on above: Performed By: #### L 500.4050, L100.0100, L501.9520 #### [facility] [address] [place], [address] MCV (RBC) [Entitic vol] 95.4 fL Normal 81-99 [facility] Comment on above: Performed By: #### L 500.4050, L100.0100, L501.9520 #### [facility] [address] [place], [address] Platelet mean volume (Bld) [Entitic vol] 10.4 fL Normal 6.2-12.0 [facility] Comment on above: Performed By: #### L 500.4050, L100.0100, L501.9520 #### [facility] [address] [place], [address] Platelets (Bld) [#/Vol] 219 10*3/uL Normal 150-450 [facility] Comment on above: Performed By: #### L 500.4050, L100.0100, L501.9520 #### [facility] [address] [place], [address] RBC (Bld) [#/Vol] 2.39 10*6/uL Low 4.2-5.4 [facility] Comment on above: Performed By: #### L 500.4050, L100.0100, L501.9520 #### [facility] [address] [place], [address] RDW SD 52.4 fl High 35.1-43.9 [facility] Comment on above: Performed By: #### L 500.4050, L100.0100, L501.9520 #### [facility] [address] [place], [address] WBC (Bld) [#/Vol] 7.9 10*3/uL Normal 4.4-11.0 [facility] Comment on above: Performed By: #### L 500.4050, L100.0100, L501.9520 #### [facility] [address] [place], [address] Consultation - Orthopedicson 12-08-2023 Consultation - Orthopedics [facility] Medical Records Department [address] [place] [address] Consultation - Orthopedics 12/08/23 1551 MR#: [id number] Acct: [id number] Name: SG VELASCO Rep #: [id number] : 1935 88 From: Domingo Calloway MD PCP: Dr. Melvin Weber MD Status:ADM IN Location: MS3 KS574-1 HPI Consult Data Date of Consult: 12/08/23 HPI Narrative HPI Narrative: SG VELASCO, is a 88 F who presents from [facility]. Uncertain if patient had fallen out of bed or somehow sustained a fracture while being transferred in a hoarder lift. She is a nonambulator. She has not been able to walk for many years. 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 Kiser in 2017. Patient sustained a supracondylar right femur fracture August 2023. Nonoperative treatment was undertaken. She had no longer been using her knee immobilizer when this happened, falling yesterday. She was brought to the hospital admitted and orthopedics was consulted. Case has been discussed with the ER doctor as well as patient's 2 sons and daughter. Patient is DNR. They did wish her to proceed with hip fracture surgery to try to help with pain. REPLACED BY [facility] Medical History Rheumatoid arthritis Dementia DVT (deep venous thrombosis) History of blood clots Hypothyroidism Hypertension Hyperlipidemia Paroxysmal atrial fibrillation Home Medications ???Medication ???Instructions ???Recorded ???Last Taken ???Type levothyroxine 200 mcg tablet 200 mcg PO DAILY thyroid 09/21/20 09/01/23 History menthol 0.44 %-zinc oxide 20.6 % 1 applic topical TID skin 07/07/21 07/12/21 05:40 History topical ointment (Calmoseptine) protectant polyethylene glycol 3350 17 gram 17 g PO DAILY PRN CONSTIPATION 07/12/21 07/12/21 05:34 History oral powder packet acetaminophen 325 mg tablet 650 mg PO Q4H PRN fever or pain 09/01/23 09/01/23 History albuterol sulfate 0.63 mg/3 mL 0.63 mg inhalation Q4H PRN 09/01/23 08/19/23 History solution for nebulization shortness of breath or wheezing apixaban 5 mg tablet (Eliquis) 5 mg PO BID 09/01/23 09/01/23 History loratadine 10 mg tablet 10 mg PO DAILY PRN allergy symptoms 09/01/23 Unknown History (Allerclear) losartan 50 mg tablet 50 mg PO DAILY 09/01/23 Unknown History metoprolol tartrate 25 mg tablet 25 mg PO BID 09/01/23 Unknown History oxycodone-acetaminoph en 5 mg-325 1 tab PO Q6H PRN PRN pain 5 days 09/01/23 Unknown Rx mg tablet #20 TABLETS triamcinolone acetonide 0.1 % 1 applic topical Q12H PRN itching 09/01/23 Unknown History topical ointment acetaminophen 650 mg rectal 650 mg TN Q4H 12/07/23 Unknown History suppository furosemide 20 mg tablet 20 mg PO DAILY 12/07/23 Unknown History hyoscyamine sulfate 0.125 mg 0.125 mg PO Q2H PRN congestion 12/07/23 Unknown History tablet (Levsin) morphine concentrate 10 mg/0.5 mL 10 mg PO Q2H PRN PRN dyspnea 12/07/23 Unknown History oral syringe (FOR ORAL USE ONLY) hyoscyamine sulfate 0.125 mg 0.125 mg PO Q2H PRN congestion 12/08/23 Unknown History tablet (Levsin) losartan 25 mg tablet 25 mg PO DAILY HYPERTENSION 12/08/23 Unknown History Allergy/AdvReac Type Severity Reaction Status Date / Time ertapenem (From [place]) Allergy Rash Verified 12/07/23 16:47 Penicillins Allergy Unknown Verified 12/07/23 16:47 Family History Father CVA (cerebral vascular accident) Mother Cancer Breast. Surgical History History of embolic filter insertion S/P insertion of IVC (inferior vena caval) filter Status post right knee replacement H/O discectomy History of appendectomy Social History household members: none Smoking Status: Never smoker alcohol intake: never substance use type: does not use ROS ROS Narrative Patient does not respond to questions regarding her review of systems. Vital Signs Vital Signs Vital Signs: 12/07/23 16:42 12/07/23 16:42 12/07/23 18:24 Temperature 99.6 F H 99.6 F H 99.2 F H Temperature Source Temporal Axillary Temporal Pulse Rate 101 H 101 H 103 H Pulse Strength Respiratory Rate 16 16 20 H Respiratory Effort Respiratory Depth Respiratory Pattern Blood Pressure 107/52 L 107/52 L 118/66 Blood Pressure Mean 70 70 83 Pulse Ox 96 96 97 Oxygen Delivery Method Room Air Room Air Oxygen Flow Rate (L/min) 12/07/23 18:46 12/07/23 19:00 12/07/23 19:16 Temperature 99 F 99.8 F H Temperature Source Axillary Axillary Pulse Rate 109 H 106 H Pulse Strength Respiratory Rate 18 18 Respiratory Effort Respiratory Depth Respiratory Pattern Blood Pressure 129/71 H 126/56 H Bloo (more content not included)... Normal [facility] Extremity Lower without Cont raon 12-08-2023 Extremity Lower without Contra [facility] Imaging Services [address] [place], [place] [id number] Extremity Lower without Contra MR#: [id number] Acct: [id number] Name: SG VELASCO Rep #: [id number] : 1935 F 88 From: Arnaldo glynn MD PCP: Dr. Melvin Weber MD Status: ADM IN Study: Extremity Lower without Contra Date of Exam: 0 12/08/23 Exam# [id number] Ordering Dr: Domingo Calloway MD [id number] STUDY: CT RIGHT FEMUR WITHOUT CONTRAST REASON FOR EXAM: Female, 88 years old. Previous fracture distal femur RADIATION DOSAGE (If Supplied By Facility): CTDIvol = ( 24.33 ) mGy, DLP = ( 1211.58 ) mGycm TECHNIQUE: Transaxial CT imaging of the femur was performed. Sagittal and coronal images were reconstructed. Individualized dose optimization techniques were used for this CT. COMPARISON: Comparison is made with prior radiograph dated December 07, 2023. FINDINGS: There is evidence of a comminuted nondisplaced intertrochanteric fracture of the proximal femur. There is minimal superior migration of the distal fracture fragment. There is also evidence of a knee prosthesis. There is evidence of an old fracture of the medial femoral condyle with the sclerosis. Soft tissue swelling. CT/Extremity Lower without Contra IMPRESSION: Nondisplaced, fracture of the intertrochanteric region of proximal right femur with mild cephalic migration of the distal fracture fragment. Soft tissue swelling. Right total knee prosthesis with healing/healed fracture of the medial distal femoral condyle. Electronically Signed: Arnaldo Rosenthal MD at 8:16 EDT , CC: Dr. Melvin Weber MD; Dr. Domingo Calloway MD Rat Exterminator: Signed Normal [facility] HH, Hemoglobin AND Hematocri ton 12-08-2023 Hematocrit (Bld) [Volume fraction] 22.9 % Low 37-47 [facility] Comment on above: Performed By: #### L 500.4050, L100.0100, L501.9520 #### [facility] [address] [place], [address] Hemoglobin (Bld) [Mass/Vol] 7.2 g/dL Low 12.0-15.0 [facility] Comment on above: Performed By: #### L 500.4050, L100.0100, L501.9520 #### [facility] [address] [place], [address] Type AND Screenon 12-08-2023 ABO and Rh group Nom (Bld) Blood group O Rh(D) negative Normal [facility] Comment on above: Order Comment: 108.2 Performed By: #### L 500.4050, L100.0100, L501.9520 #### [facility] [address] [place], [address] 12 Lead EKGon 12-07-2023 12 Lead EKG [facility] Cardiovascular Services [address] [place] [address] 12 Lead EKG 12/07/23 1731 MR#: [id number] Acct: [id number] Name: SG VELASCO Rep #: [id number] : 1935 88 From: Robbin Phan MD Attending Dr: Dr. Ethan Aguilar MD Status : DIS IN Ordering Dr: Luke Bolaños DO Date: 12/07/23 Location: NC3 Sex: F C Admitted: 12/07/23 Test Reason : Blood Pressure : / mmHG Vent. Rate : 107 BPM Atrial Rate : 000 BPM P-R Int : 000 ms QRS Dur : 070 ms QT Int : 348 ms P-R-T Axes : 000 -07 074 degrees QTc Int : 464 ms Atrial fibrillation with rapid ventricular response with premature ventricular or aberrantly conducted complexes Low voltage QRS Nonspecific ST and T wave abnormality Abnormal ECG Confirmed by ARCELIA LEYVA, MELISA ([id number]), newspaper editor managing RONY QURESHI ([id number]) on 12/12/2023 1:58:47 PM Referred By: NIKA Confirmed By:MANE PHAN MD 12/12/23 1358 Date Robbin Phan MD CC: Dr. Luke Bolaños DO; Dr. Ethan Aguilar MD; Dr. Melvin Weber MD Signed Normal [facility] Basic Metabolic Profile (BMP )on 12-07-2023 BUN/CRE 28.2 RATIO High 10-20 [facility] Comment on above: Order Comment: 108.2 Performed By: #### L 500.4050, L100.0100, L501.9520 #### [facility] [address] [place], [place], [id number] CA,Total 8.7 mg/dL Normal 8.5-10.1 [facility] Comment on above: Order Comment: 108.2 Performed By: #### L 500.4050, L100.0100, L501.9520 #### [facility] [address] [place], [address] Chloride [Moles/Vol] 110 mmol/L High 98-107 [facility] Comment on above: Order Comment: 108.2 Performed By: #### L 500.4050, L100.0100, L501.9520 #### [facility] [address] [place], [address] CO2 [Moles/Vol] 30.0 mmol/L Normal 21.0-32.0 [facility] Comment on above: Order Comment: 108.2 Performed By: #### L 500.4050, L100.0100, L501.9520 #### [facility] [address] [place], [address] Creatinine [Mass/Vol] 0.85 mg/dL Normal 0.55-1.02 [facility] Comment on above: Order Comment: 108.2 Result Comment: The validity of the calculated GFR GFRAA in patients over 70 years has not been determined. Clinical correlation is essential. Performed By: #### L 500.4050, L100.0100, L501.9520 #### [facility] [address] [place], [address] ECRCL 46.87 ml/min Normal [facility] Comment on above: Order Comment: 108.2 Performed By: #### L 500.4050, L100.0100, L501.9520 #### [facility] [address] [place], [address] EST GFR - AA 81 mL/min Normal >60 [facility] Comment on above: Order Comment: 108.2 Result Comment: Afri can [place] GFR Calc Performed By: #### L 500.4050, L100.0100, L501.9520 #### [facility] [address] [place], [address] GAP 3 Low 5-15 [facility] Comment on above: Order Comment: 108.2 Performed By: #### L 500.4050, L100.0100, L501.9520 #### [facility] [address] [place], [address] GFR/1.73 sq M.predicted among non-blacks MDRD (S/P/Bld) [Vol rate/Area] 67 mL/min/{1.73_m2} Normal >60 [facility] Comment on above: Order Comment: 108.2 Result Comment: Non- GFR Calc Performed By: #### L 500.4050, L100.0100, L501.9520 #### [facility] [address] [place], [address] Glucose [Mass/Vol] 120 mg/dL High 74-106 [facility] Comment on above: Order Comment: 108.2 Result Comment: Fast ing Glucose result from 100 to 125 mg/dL suggests IMPAIRED HOMEOSTASIS per A.D.A. criteria. Performed By: #### L 500.4050, L100.0100, L501.9520 #### [facility] [address] [place], [address] Potassium [Moles/Vol] 4.1 mmol/L Normal 3.5-5.1 [facility] Comment on above: Order Comment: 108.2 Performed By: #### L 500.4050, L100.0100, L501.9520 #### [facility] [address] [place], [address] Sodium [Moles/Vol] 143 mmol/L Normal 136-145 [facility] Comment on above: Order Comment: 108.2 Performed By: #### L 500.4050, L100.0100, L501.9520 #### [facility] [address] [place], [address] Urea nitrogen [Mass/Vol] 24 mg/dL High 7-18 [facility] Comment on above: Order Comment: 108.2 Performed By: #### L 500.4050, L100.0100, L501.9520 #### [facility] [address] [place], [address] Brain/Head without Contrasto n 12-07-2023 Brain/Head without Contrast [facility] Imaging Services [address] [place] [address] Brain/Head without Contrast MR#: [id number] Acct: [id number] Name: SG VELASCO Rep #: [id number] : 1935 F 88 From: Ras Wooten MD PCP: Dr. Melvin Weber MD Status: REG Study: Brain/Head without Contrast Date of Exam: 11/13 10/05 Exam# [id number] Ordering Dr: Luke Bolaños DO [id number] STUDY: CT BRAIN WITHOUT CONTRAST REASON FOR EXAM: Female, 88 years old. ams RADIATION DOSAGE (If Supplied By Facility): CTDIvol = ( 44.99 ) mGy, DLP = ( 846.73 ) mGycm TECHNIQUE: Transaxial CT imaging of the brain was performed without administration of intravenous contrast material. Individualized dose optimization techniques were used for this CT. COMPARISON: July 05, 2021 FINDINGS: Normal soft tissue structures. Normal calvarium. Calcific plaquing of the cavernous carotids. Mild atrophy and periventricular white matter ischemic changes.. . Old left lacunar infarct. Old deep white matter infarct in the right frontal temporal region.. Normal brainstem. Normal cerebellum. There is no intracranial hemorrhage. There are no findings of an acute ischemic infarction. Minor mucosal thickening of the right maxillary and bilateral ethmoid air cells.. Postsurgical changes of the orbits CT/Brain/Head without Contrast IMPRESSION: Atrophy and periventricular white matter ischemic changes. Old left lacunar infarct. No acute bleed. If concern for acute infarct MRI recommended. Electronically Signed: Ras Wooten MD at 19:05 EDT , CC: Dr. Luke Bolaños DO; Dr. Melvin Weber MD Rat Exterminator: Signed Normal [facility] CBC W/Diff, Automatedon 11-13 Absolute Lymph 2.18 X10 3/uL Normal 0.83-4.51 [facility] Comment on above: Performed By: #### L 500.4050, L100.0100, L501.9520 #### [facility] [address] [place], [address] Absolute Neut 5.9 X10 3/uL Normal 2.0-7.7 [facility] Comment on above: Performed By: #### L 500.4050, L100.0100, L501.9520 #### [facility] [address] [place], [address] Basophils/100 WBC (Bld) 0.6 % Normal 0-1 [facility] Comment on above: Performed By: #### L 500.4050, L100.0100, L501.9520 #### [facility] [address] [place], [address] Eosinophils/100 WBC (Bld) 1.4 % Normal 0-5 [facility] Comment on above: Performed By: #### L 500.4050, L100.0100, L501.9520 #### [facility] [address] [place], [address] Erythrocyte distribution width (RBC) [Ratio] 14.9 % High 11.6-14.6 [facility] Comment on above: Performed By: #### L 500.4050, L100.0100, L501.9520 #### [facility] [address] [place], [address] Hematocrit (Bld) [Volume fraction] 27.2 % Low 37-47 [facility] Comment on above: Performed By: #### L 500.4050, L100.0100, L501.9520 #### [facility] [address] [place], [address] Hemoglobin (Bld) [Mass/Vol] 8.6 g/dL Low 12.0-15.0 [facility] Comment on above: Performed By: #### L 500.4050, L100.0100, L501.9520 #### [facility] [address] [place], [address] IG% 0.300 Normal 0.0-0.9 [facility] Comment on above: Result Comment: IG% - Immature Granulocytes (promyelocytes, myelocytes and metamyelocytes) > 1% indicates that a LEFT SHIFT is Present. Performed By: #### L 500.4050, L100.0100, L501.9520 #### [facility] [address] [place], [address] Lymphocytes/100 WBC (Bld) 22.8 % Normal 19-41 [facility] Comment on above: Performed By: #### L 500.4050, L100.0100, L501.9520 #### [facility] [address] [place], [address] MCH (RBC) [Entitic mass] 29.9 pg Normal 27.0-32.0 [facility] Comment on above: Performed By: #### L 500.4050, L100.0100, L501.9520 #### [facility] [address] [place], [address] MCHC (RBC) [Mass/Vol] 31.6 g/dL Low 32-36 [facility] Comment on above: Performed By: #### L 500.4050, L100.0100, L501.9520 #### [facility] [address] [place], [address] MCV (RBC) [Entitic vol] 94.4 fL Normal 81-99 [facility] Comment on above: Performed By: #### L 500.4050, L100.0100, L501.9520 #### [facility] [address] [place], [address] Monocytes/100 WBC (Bld) 13.2 % High 0-10 [facility] Comment on above: Performed By: #### L 500.4050, L100.0100, L501.9520 #### [facility] [address] [place], [address] Neutrophils/100 WBC (Bld) 61.7 % Normal 47-70 [facility] Comment on above: Performed By: #### L 500.4050, L100.0100, L501.9520 #### [facility] [address] [place], [address] Nucleated RBC (Bld) [#/Vol] 0 10*3/uL Normal 0-5 [facility] Comment on above: Performed By: #### L 500.4050, L100.0100, L501.9520 #### [facility] [address] [place], [address] Platelet mean volume (Bld) [Entitic vol] 10.0 fL Normal 6.2-12.0 [facility] Comment on above: Performed By: #### L 500.4050, L100.0100, L501.9520 #### [facility] [address] [place], [address] Platelets (Bld) [#/Vol] 279 10*3/uL Normal 150-450 [facility] Comment on above: Performed By: #### L 500.4050, L100.0100, L501.9520 #### [facility] [address] [place], [address] RBC (Bld) [#/Vol] 2.88 10*6/uL Low 4.2-5.4 [facility] Comment on above: Performed By: #### L 500.4050, L100.0100, L501.9520 #### [facility] [address] [place], [address] RDW SD 51.8 fl High 35.1-43.9 [facility] Comment on above: Performed By: #### L 500.4050, L100.0100, L501.9520 #### [facility] [address] [place], [address] WBC (Bld) [#/Vol] 9.6 10*3/uL Normal 4.4-11.0 [facility] Comment on above: Performed By: #### L 500.4050, L100.0100, L501.9520 #### [facility] [address] [place], [address] Chest 1 View (Portable)on Chest 1 View (Portable) [facility] Imaging Services [address] [place] [address] Chest 1 View (Portable) MR#: [id number] Acct: [id number] Name: SG VELASCO Rep #: [id number] : 1935 F 88 From: Ras Wooten MD PCP: Dr. Melvin Weber MD Status: [facility] Study: Chest 1 View (Portable) Date of Exam: 12/07/23 Exam# [id number] Ordering Dr: Luke Bolaños DO [id number] STUDY: X-RAY CHEST REASON FOR EXAM: Female, 88 years old. ams TECHNIQUE: AP portable COMPARISON: None. FINDINGS: The lungs are clear and expanded. Tiny calcified granulomata in the right upper and left upper lobe There is no demonstrated pleural abnormality. Heart is prominent.. Normal mediastinum and danii. Normal visualized pulmonary arteries. Mildly calcified aortic arch and descending thoracic aorta. Dorsal spine and shoulders demonstrate degenerative changes. Normal visualized ribs, and clavicles.. There is no demonstrated abnormality of the visualized soft tissue structures of the upper abdomen. RAD/Chest 1 View (Portable) IMPRESSION: ASHD. No acute cardiopulmonary pathology Electronically Signed: Ras Wooten MD at 19:12 EDT Reading Location ID and State: [address] [place] [address] Tel , Service support , CC: Dr. Luke Bolaños DO; Dr. Melvin Weber MD Rat Exterminator: Signed Normal [facility] Emergency Department Summary on 12-07-2023 Emergency Department Summary [facility] Medical Records Department [address] [place] [address] Emergency Department Summary 12/07/23 MR#: [id number] Acct: [id number] Name: SG VELASCO Rep #: [id number] : 1935 88 From: Luke Bolaños DO PCP: Dr. Melvin Weber MD Status:ADM IN Location: [facility] PR440-9 [facility] History of Present Illness Chief Complaint: Lower Extremity Injury Narrative Narrative: 80-year-old female with dementia presenting with left hip fracture. She previously fracture right distal femur and in the long-term for this and told the family that she is likely not anticoag ulated to survive the surgery for this. He recommended that they just keep her comfortable. Apparently sometime in the last day or so the long-term told her [id number] that they had a "soft drama" and the patient fell out of bed or out of the Sonny. She was also told that the patient was in the wheelchair after this and was fairly unresponsive and drooling. She is not exactly sure about the timeline. Patient is diagnosed with a hip fracture of the right hip. Patient's jadtlqog-so-bed states that her baseline is pretty much nonresponsive bedbound. She does state that sometimes he talks but she cannot communicate. [facility] Medical History Rheumatoid arthritis Dementia DVT (deep venous thrombosis) History of blood clots Hypothyroidism Hypertension Hyperlipidemia Paroxysmal atrial fibrillation Home Medications ???Medication ???Instructions ???Recorded ???Last Taken ???Type levothyroxine 200 mcg tablet 200 mcg PO DAILY thyroid 09/21/20 09/01/23 History menthol 0.44 %-zinc oxide 20.6 % 1 applic topical TID skin 07/07/21 07/12/21 05:40 History topical ointment (Calmoseptine) protectant polyethylene glycol 3350 17 gram 17 g PO DAILY PRN CONSTIPATION 07/12/21 07/12/21 05:34 History oral powder packet acetaminophen 325 mg tablet 650 mg PO Q4H PRN fever or pain 09/01/23 09/01/23 History albuterol sulfate 0.63 mg/3 mL 0.63 mg inhalation Q4H PRN 09/01/23 08/19/23 History solution for nebulization shortness of breath or wheezing apixaban 5 mg tablet (Eliquis) 5 mg PO BID 09/01/23 09/01/23 History loratadine 10 mg tablet 10 mg PO DAILY PRN allergy symptoms 09/01/23 Unknown History (Allerclear) losartan 50 mg tablet 50 mg PO DAILY 09/01/23 Unknown History metoprolol tartrate 25 mg tablet 25 mg PO BID 09/01/23 Unknown History oxycodone-acetaminoph en 5 mg-325 1 tab PO Q6H PRN PRN pain 5 days 09/01/23 Unknown Rx mg tablet #20 TABLETS triamcinolone acetonide 0.1 % 1 applic topical Q12H PRN itching 09/01/23 Unknown History topical ointment acetaminophen 650 mg rectal 650 mg TN Q4H 12/07/23 Unknown History suppository furosemide 20 mg tablet 20 mg PO DAILY 12/07/23 Unknown History hyoscyamine sulfate 0.125 mg 0.125 mg PO Q2H PRN congestion 12/07/23 Unknown History tablet (Levsin) morphine concentrate 10 mg/0.5 mL 10 mg PO Q2H PRN PRN dyspnea 12/07/23 Unknown History oral syringe (FOR ORAL USE ONLY) Allergy/AdvReac Type Severity Reaction Status Date / Time ertapenem (From Invanz) Allergy Rash Verified 12/07/23 16:47 Penicillins Allergy Unknown Verified 12/07/23 16:47 Family History Father CVA (cerebral vascular accident) Mother Cancer Breast. Surgical History History of embolic filter insertion S/P insertion of IVC (inferior vena caval) filter Status post right knee replacement H/O discectomy History of appendectomy Social History household members: none Smoking Status: Never smoker alcohol intake: never substance use type: does not use ROS ROS ED Review of Systems ROS Unobtainable: due to mental condition and due to mental status EXAM Physical Exam Const Vital Signs: 12/07/23 16:42 12/07/23 16:42 12/07/23 18:24 Temperature 99.6 F H 99.6 F H 99.2 F H Temperature Source Temporal Axillary Temporal Pulse Rate 101 H 101 H 103 H Respiratory Rate 16 16 20 H Blood Pressure 107/52 L 107/52 L 118/66 Blood Pressure Mean 70 70 83 Pulse Ox 96 96 97 Oxygen Delivery Method Room Air Room Air Oxygen Flow Rate (L/min) 12/07/23 18:46 12/07/23 19:00 12/07/23 19:16 Temperature 99 F 99.8 F H Temperature Source Axillary Axillary Pulse Rate 109 H 106 H Respiratory Rate 18 18 Blood Pressure 129/71 H 126/56 H Blood Pressure Mean 90 79 Pulse Ox 95 100 85 Oxygen Delivery Method Room Air Nasal Cannula Room Air Oxygen Flow Rate (L/min) 2 12/07/23 19:22 12/07/23 20:00 Temperature 100.2 F H Temperature Source Axillary Pulse Rat (more content not included)... Normal [facility] Femur Min 2 Viewson 12-07-19 24 Femur Min 2 Views [facility] Imaging Services [address] [place] [address] Femur Min 2 Views MR#: [id number] Acct: [id number] Name: SG VELASCO Rep #: [id number] : 1935 F 88 From: Ras Wooten MD PCP: Dr. Melvin Weber MD Status: REG ER Study: Femur Min 2 Views Date of Exam: 12/07/23 Exam# [id number] Ordering Dr: Luke Bolaños DO [id number] STUDY: X-RAY - RIGHT FEMUR REASON FOR STUDY: Female, 88 years old. pain TECHNIQUE: 3 view(s) of the femur. COMPARISON: None. FINDINGS: Acute impacted intertrochanteric fracture with overlapping and varus angulation of fracture fragments . Narrowed hip joint. Stable appearance to knee prosthesis. RAD/Femur Min 2 Views IMPRESSION: Acute intertrochanteric fracture of the right hip Electronically Signed: Ras Wooten MD at 19:10 EDT Reading Location ID and State: [address] [place] [address] Tel , Service support , CC: Dr. Luke Bolaños DO; Dr. Melvin Weber MD Rat Exterminator: Signed Normal [facility] H AND P Exam - Hospitaliston 12-07-2023 H&P Exam - Hospitalist [facility] Medical Records Department [address] [place] [address] H P Exam - Hospitalist 12/07/232046 MR#: [id number] Acct: [id number] Name: SG VELASCO Rep #: [id number] : 1935 88 From: Hans King DO PCP: Dr. Melvin Weber MD Status:ADM IN [id number] - General General Date of Admission: 12/07/23 Date of Service: 12/07/23 Chief Complaint: Right hip pain HPI Narrative SG VELASCO, is a 88 F who presented to [facility] ED on 12/07/2023 from long-term for right hip pain after fall. Saw patient at bedside in the ED, 2 sons present. Patient was somnolent and not responding to any verbal commands, did have some response to tactile stimulation. She otherwise was laying back comfortably and in no acute distress. History was gathered from patient's sons and ED physician. Patient has history of severe dementia and lives in a long-term. She is nonverbal at baseline but does make appropriate eye contact and is able to feed herself slowly with supervision. Patient apparently had a soft fall either out of bed or out of the Sonny lift at the long-term yesterday. She was seen by staff there and initially was not sent to the ED due to concern that she would not be an operative candidate given her severe dementia. However, family wished for patient to be further evaluated in the ED in case she could be an operative candidate. ED physician spoke with Dr. Domingo Calloway who said she is an operative candidate. Noted that patient is on Eliquis for A-fib, with last dose being on morning of 12/06. Per Dr. Calloway, would need medical clearance and anesthesia evaluation prior to surgery as well as time for Eliquis to washout, so tentative plan is for surgery on Friday 12/08. Family was agreeable with this plan. Vitals in the ED were notable for low-grade temp and A-fib with rate in the low 100s, otherwise unremarkable. Labs notable for hemoglobin 8.6 (baseline around 10), otherwise unremarkable. UA with 500 leukocyte esterase, negative nitrates, 4+ bacteria. Hip/pelvis and femur x-rays showed an acute impacted intertrochanteric right hip fracture. CT brain and C- spine were unremarkable, and chest x-ray was also unremarkable. REPLACED BY [facility] Medical History Rheumatoid arthritis Dementia DVT (deep venous thrombosis) History of blood clots Hypothyroidism Hypertension Hyperlipidemia Paroxysmal atrial fibrillation Home Medications ???Medication ???Instructions ???Recorded ???Last Taken ???Type levothyroxine 200 mcg tablet 200 mcg PO DAILY thyroid 09/21/20 09/01/23 History menthol 0.44 %-zinc oxide 20.6 % 1 applic topical TID skin 07/07/21 07/12/21 05:40 History topical ointment (Calmoseptine) protectant polyethylene glycol 3350 17 gram 17 g PO DAILY PRN CONSTIPATION 07/12/21 07/12/21 05:34 History oral powder packet acetaminophen 325 mg tablet 650 mg PO Q4H PRN fever or pain 09/01/23 09/01/23 History albuterol sulfate 0.63 mg/3 mL 0.63 mg inhalation Q4H PRN 09/01/23 08/19/23 History solution for nebulization shortness of breath or wheezing apixaban 5 mg tablet (Eliquis) 5 mg PO BID 09/01/23 09/01/23 History loratadine 10 mg tablet 10 mg PO DAILY PRN allergy symptoms 09/01/23 Unknown History (Allerclear) losartan 50 mg tablet 50 mg PO DAILY 09/01/23 Unknown History metoprolol tartrate 25 mg tablet 25 mg PO BID 09/01/23 Unknown History oxycodone-acetaminoph en 5 mg-325 1 tab PO Q6H PRN PRN pain 5 days 09/01/23 Unknown Rx mg tablet #20 TABLETS triamcinolone acetonide 0.1 % 1 applic topical Q12H PRN itching 09/01/23 Unknown History topical ointment acetaminophen 650 mg rectal 650 mg TN Q4H 12/07/23 Unknown History suppository furosemide 20 mg tablet 20 mg PO DAILY 12/07/23 Unknown History hyoscyamine sulfate 0.125 mg 0.125 mg PO Q2H PRN congestion 12/07/23 Unknown History tablet (Levsin) morphine concentrate 10 mg/0.5 mL 10 mg PO Q2H PRN PRN dyspnea 12/07/23 Unknown History oral syringe (FOR ORAL USE ONLY) Allergy/AdvReac Type Severity Reaction Status Date / Time ertapenem (From [facility]) Allergy Rash Verified 12/07/23 16:47 Penicillins Allergy Unknown Verified 12/07/23 16:47 Family History Father CVA (cerebral vascular accident) Mother Cancer Breast. Surgical History History of embolic filter insertion S/P insertion of IVC (inferior vena caval) filter Status post right knee replacement H/O discectomy History of appendectomy Social History household members: none Smoking Status: Never smoker alcohol intake: never substance use type: does not use ROS (more content not included)... Normal [facility] L501.4020on 12-07-2023 TROPONIN-I HS 8 pg/mL Normal 3.0-54.0 [facility] Comment on above: Order Comment: 108.2 Result Comment: Plea se Note: New Test Units and Gender Specific Reference Ranges. For more information see Policy Stat Procedure [place] High Sensitivity Troponin (TNIH) and attachments. Performed By: #### L 500.4050, L100.0100, L501.9520 #### [facility] [address] [facility] [place], [place], [address] Pelvis 1 or 2 Viewson 2023 Pelvis 1 or 2 Views [facility] Imaging Services [address] [place], [place] [address] Pelvis 1 or 2 Views MR#: [id number] Acct: [id number] Name: SG VELASCO Rep #: [id number] : 1935 F 88 From: Ras Wooten MD PCP: Dr. Melvin Weber MD Status: REG ER Study: Pelvis 1 or 2 Views Date of Exam: 12/07/23 Exam# [id number] Ordering Dr: Luke Bolaños DO [id number] STUDY: X-RAY - PELVIS AND RIGHT HIP REASON FOR EXAM: Female, 88 years old. hip fracture TECHNIQUE: 1 views of the pelvis and hip. COMPARISON: None. FINDINGS: There is a non-specific bowel gas pattern. Normal visualized soft tissue structures. Normal bilateral iliac wings, sacroiliac joints and visualized sacrum. Normal bilateral superior and inferior pubic rami. Normal pubic symphysis. Normal bilateral ischial tuberosities. Acute impacted intertrochanteric fracture of the right hip with overlapping and varus angulation of fracture fragments.. Diffusely narrowed joint spaces are noted bilaterally. RAD/Pelvis 1 or 2 Views IMPRESSION: Acute right hip fracture and bilateral degenerative changes of the hips. No evidence for acute left hip or pelvic fracture Electronically Signed: Ras Wooten MD at 19:11 EDT , CC: Dr. Luke Bolaños DO; Dr. Melvin Weber MD Rat Exterminator: Signed Normal [facility] Spine Cervical without Contr ason 12-07-2023 Spine Cervical without Contras [facility] Imaging Services [facility] [place], [place] [address] Spine Cervical without Contras MR#: [id number] Acct: [id number] Name: SG VELASCO Rep #: [id number] : 1935 F 88 From: Ras Wooten MD PCP: Dr. Melvin Weber MD Status: REG ER Study: Spine Cervical without Contras Date of Exam: 0 12/07/23 Exam# [id number] Ordering Dr: Luke Bolaños DO [id number] STUDY: CT CERVICAL SPINE WITHOUT CONTRAST REASON FOR EXAM: Female, 88 years old. trauma RADIATION DOSAGE (If Supplied By Facility): CTDIvol = ( 22.90 ) mGy, DLP = ( 461.86 ) mGycm TECHNIQUE: High resolution transaxial imaging was performed without contrast material. Sagittal and coronal images were reconstructed. Individualized dose optimization techniques were used for this CT. COMPARISON: None FINDINGS: Normal craniovertebral junction. Normal anterior atlantoaxial articulation. Normal odontoid process. Normal cervical lordosis. Normal vertebral bodies and posterior osseous elements. C2-3: Normal endplates. Normal disc height and morphology. Normal central canal and intervertebral neuroforamina. C3-4: Normal endplates. Normal disc height and morphology. Normal central canal and intervertebral neuroforamina. C4-5: Narrowed disc space and minor bulging disc osteophyte complex.. Mild narrowing of the central canal. Moderate to severe left neural foraminal stenosis and severe narrowing on the right secondary to bony hypertrophy C5-6: Narrowed disc space and minor endplate spurring.. Normal central canal . Mild bilateral neural foraminal encroachment secondary to bony hypertrophy C6-7: Normal endplates. Normal disc height and morphology. Normal central canal and intervertebral neuroforamina. C7-T1: Normal endplates. Normal disc height and morphology. Normal central canal and intervertebral neuroforamina. Normal visualized soft tissue structures. CT/Spine Cervical without Contras IMPRESSION: No evidence for acute fracture or subluxation. Spondylosis. Most severe at C4-5. Electronically Signed: Ras Wooten MD at 19:08 EDT Reading Location ID and State: [address] [place] [address] Tel , Service support , CC: Dr. Luke Bolaños DO; Dr. Melvin Weber MD Rat Exterminator: Signed Normal [facility] Urinalysis, Completeon 12-06 BACTERIA 4+ /hpf Normal None Seen [facility] Comment on above: Order Comment: 108.2 Performed By: #### L 500.4050, L100.0100, L501.9520 #### [facility] [address] [place], [address] EPI,SQUAMOUS 0-5 SEEN Normal 5-10 [facility] Comment on above: Order Comment: 108.2 Performed By: #### L 500.4050, L100.0100, L501.9520 #### [facility] [address] [place], [address] RBC 0-5 SEEN Normal 0-5 [facility] Comment on above: Order Comment: 108.2 Performed By: #### L 500.4050, L100.0100, L501.9520 #### [facility] [address] [place], [address] WBC 50-100 SEEN Normal 0-5 [facility] Comment on above: Order Comment: 108.2 Performed By: #### L 500.4050, L100.0100, L501.9520 #### [facility] [address] [place], [address] Mucus Ql (Urine sed) 0 SEEN Normal [facility] Comment on above: Order Comment: 108.2 Performed By: #### L 500.4050, L100.0100, L501.9520 #### [facility] [address] [place], [address] CBC W/Diff, Automatedon 05-0 6-2023 Absolute Lymph 1.86 X10 3/uL Normal 0.83-4.51 [facility] Comment on above: Order Comment: 108.2 Performed By: #### L 500.4050, L100.0100, L501.9520 #### [facility] [address] [place], [address] Absolute Neut 3.9 X10 3/uL Normal 2.0-7.7 [facility] Comment on above: Order Comment: 108.2 Performed By: #### L 500.4050, L100.0100, L501.9520 #### [facility] [address] [place], [address] Basophils/100 WBC (Bld) 0.9 % Normal 0-1 [facility] Comment on above: Order Comment: 108.2 Performed By: #### L 500.4050, L100.0100, L501.9520 #### [facility] [address] [place], [address] Eosinophils/100 WBC (Bld) 6.3 % High 0-5 [facility] Comment on above: Order Comment: 108.2 Performed By: #### L 500.4050, L100.0100, L501.9520 #### [facility] [address] [place], [address] Erythrocyte distribution width (RBC) [Ratio] 13.7 % Normal 11.6-14.6 [facility] Comment on above: Order Comment: 108.2 Performed By: #### L 500.4050, L100.0100, L501.9520 #### [facility] [address] [place], [address] Hematocrit (Bld) [Volume fraction] 33.4 % Low 37-47 [facility] Comment on above: Order Comment: 108.2 Performed By: #### L 500.4050, L100.0100, L501.9520 #### [facility] [address] [place], [address] Hemoglobin (Bld) [Mass/Vol] 10.6 g/dL Low 12.0-15.0 [facility] Comment on above: Order Comment: 108.2 Performed By: #### L 500.4050, L100.0100, L501.9520 #### [facility] [address] [place], [address] IG% 0.300 Normal 0.0-0.9 [facility] Comment on above: Order Comment: 108.2 Result Comment: IG% - Immature Granulocytes (promyelocytes, myelocytes and metamyelocytes) > 1% indicates that a LEFT SHIFT is Present. Performed By: #### L 500.4050, L100.0100, L501.9520 #### [facility] [address] [place], [address] Lymphocytes/100 WBC (Bld) 27.2 % Normal 19-41 [facility] Comment on above: Order Comment: 108.2 Performed By: #### L 500.4050, L100.0100, L501.9520 #### [facility] [address] [place], [address] MCH (RBC) [Entitic mass] 30.5 pg Normal 27.0-32.0 [facility] Comment on above: Order Comment: 108.2 Performed By: #### L 500.4050, L100.0100, L501.9520 #### [facility] [address] [place], [address] MCHC (RBC) [Mass/Vol] 31.7 g/dL Low 32-36 [facility] Comment on above: Order Comment: 108.2 Performed By: #### L 500.4050, L100.0100, L501.9520 #### [facility] [address] [place], [address] MCV (RBC) [Entitic vol] 96.3 fL Normal 81-99 [facility] Comment on above: Order Comment: 108.2 Performed By: #### L 500.4050, L100.0100, L501.9520 #### [facility] [address] [place], [address] Monocytes/100 WBC (Bld) 7.8 % Normal 0-10 [facility] Comment on above: Order Comment: 108.2 Performed By: #### L 500.4050, L100.0100, L501.9520 #### [facility] [address] [place], [address] Neutrophils/100 WBC (Bld) 57.5 % Normal 47-70 [facility] Comment on above: Order Comment: 108.2 Performed By: #### L 500.4050, L100.0100, L501.9520 #### [facility] [address] [place], [address] Nucleated RBC (Bld) [#/Vol] 0 10*3/uL Normal 0-5 [facility] Comment on above: Order Comment: 108.2 Performed By: #### L 500.4050, L100.0100, L501.9520 #### [facility] [address] [place], [address] Platelet mean volume (Bld) [Entitic vol] 10.2 fL Normal 6.2-12.0 [facility] Comment on above: Order Comment: 108.2 Performed By: #### L 500.4050, L100.0100, L501.9520 #### [facility] [address] [place], [address] Platelets (Bld) [#/Vol] 464 10*3/uL High 150-450 [facility] Comment on above: Order Comment: 108.2 Performed By: #### L 500.4050, L100.0100, L501.9520 #### [facility] [address] [place], [address] RBC (Bld) [#/Vol] 3.47 10*6/uL Low 4.2-5.4 [facility] Comment on above: Order Comment: 108.2 Performed By: #### L 500.4050, L100.0100, L501.9520 #### [facility] [address] [place], [address] RDW SD 47.8 fl High 35.1-43.9 [facility] Comment on above: Order Comment: 108.2 Performed By: #### L 500.4050, L100.0100, L501.9520 #### [facility] [address] [place], [address] WBC (Bld) [#/Vol] 6.8 10*3/uL Normal 4.4-11.0 [facility] Comment on above: Order Comment: 108.2 Performed By: #### L 500.4050, L100.0100, L501.9520 #### [facility] [address] [place], [address] Comprehensive Metabolic Prof ilon 09-18-2023 Albumin [Mass/Vol] 2.7 g/dL Low 3.2-5.0 [facility] Comment on above: Order Comment: 108.2 Performed By: #### L 500.4050, L100.0100, L501.9520 #### [facility] [address] [place], [address] Albumin/Globulin [Mass ratio] 0.8 {ratio} Low 0.9-2.4 [facility] Comment on above: Order Comment: 108.2 Performed By: #### L 500.4050, L100.0100, L501.9520 #### [facility] [address] [place], [address] ALK P 123 U/L High 45-117 [facility] Comment on above: Order Comment: 108.2 Performed By: #### L 500.4050, L100.0100, L501.9520 #### [facility] [address] [place], [address] ALT [Catalytic activity/Vol] 11 U/L Low 13-56 [facility] Comment on above: Order Comment: 108.2 Performed By: #### L 500.4050, L100.0100, L501.9520 #### [facility] [address] [place], [address] AST [Catalytic activity/Vol] 17 U/L Normal 15-37 [facility] Comment on above: Order Comment: 108.2 Performed By: #### L 500.4050, L100.0100, L501.9520 #### [facility] [address] [place], [address] Bilirubin [Mass/Vol] 0.50 mg/dL Normal 0.20-1.00 [facility] Comment on above: Order Comment: 108.2 Result Comment: For patients on eltrombopag therapy, use of Dimension [place] TBIL is not recommended. Performed By: #### L 500.4050, L100.0100, L501.9520 #### [facility] [address] [place], [address] BUN/CRE 23.6 RATIO High 10-20 [facility] Comment on above: Order Comment: 108.2 Performed By: #### L 500.4050, L100.0100, L501.9520 #### [facility] [address] [place], [address] CA,Total 8.7 mg/dL Normal 8.5-10.1 [facility] Comment on above: Order Comment: 108.2 Performed By: #### L 500.4050, L100.0100, L501.9520 #### [facility] [address] [place], [address] Chloride [Moles/Vol] 110 mmol/L High 98-107 [facility] Comment on above: Order Comment: 108.2 Performed By: #### L 500.4050, L100.0100, L501.9520 #### [facility] [address] [place], [address] CO2 [Moles/Vol] 27.0 mmol/L Normal 21.0-32.0 [facility] Comment on above: Order Comment: 108.2 Performed By: #### L 500.4050, L100.0100, L501.9520 #### [facility] [address] [place], [address] Creatinine [Mass/Vol] 0.72 mg/dL Normal 0.55-1.02 [facility] Comment on above: Order Comment: 108.2 Result Comment: The validity of the calculated GFR GFRAA in patients over 70 years has not been determined. Clinical correlation is essential. Performed By: #### L 500.4050, L100.0100, L501.9520 #### [facility] [address] [place], [address] EST GFR - AA 98 mL/min Normal >60 [facility] Comment on above: Order Comment: 108.2 Result Comment: Afri can [place] GFR Calc Performed By: #### L 500.4050, L100.0100, L501.9520 #### [facility] [address] [place], [address] GAP 4 Low 5-15 [facility] Comment on above: Order Comment: 108.2 Performed By: #### L 500.4050, L100.0100, L501.9520 #### [facility] [address] [place], [address] GFR/1.73 sq M.predicted among non-blacks MDRD (S/P/Bld) [Vol rate/Area] 81 mL/min/{1.73_m2} Normal >60 [facility] Comment on above: Order Comment: 108.2 Result Comment: Non- GFR Calc Performed By: #### L 500.4050, L100.0100, L501.9520 #### [facility] [address] [place], [address] Globulin (S) [Mass/Vol] 3.4 g/dL Normal 2.2-4.2 [facility] Comment on above: Order Comment: 108.2 Performed By: #### L 500.4050, L100.0100, L501.9520 #### [facility] [address] [place], [address] Glucose [Mass/Vol] 93 mg/dL Normal 74-106 [facility] Comment on above: Order Comment: 108.2 Performed By: #### L 500.4050, L100.0100, L501.9520 #### [facility] [address] [place], [address] Potassium [Moles/Vol] 4.2 mmol/L Normal 3.5-5.1 [facility] Comment on above: Order Comment: 108.2 Performed By: #### L 500.4050, L100.0100, L501.9520 #### [facility] [address] [place], [address] Sodium [Moles/Vol] 141 mmol/L Normal 136-145 [facility] Comment on above: Order Comment: 108.2 Performed By: #### L 500.4050, L100.0100, L501.9520 #### [facility] [address] [place], [address] T PROT 6.1 g/dL Low 6.4-8.2 [facility] Comment on above: Order Comment: 108.2 Performed By: #### L 500.4050, L100.0100, L501.9520 #### [facility] [address] [place], [address] Urea nitrogen [Mass/Vol] 17 mg/dL Normal 7-18 [facility] Comment on above: Order Comment: 108.2 Performed By: #### L 500.4050, L100.0100, L501.9520 #### [facility] [address] [place], [address] Thyroid Stim Hormone (TSH)on 09-18-2023 TSH 3.82 uIU/mL High 0.358-3.74 [facility] Comment on above: Order Comment: 108.2 Performed By: #### L 500.4050, L100.0100, L501.9520 #### [facility] [address] [place], [address] 12 Lead EKGon 09-01-2023 12 Lead EKG [facility] [address] [place] [address] 12 Lead EKG 09/01/23 1557 MR#: [id number] Acct: [id number] Name: SG VELASCO Rep #: [id number] : [id number] From: Norm Bai MD Attending Dr: Status: DEP ER Ordering Dr: Arpit Jordan DO Date: 09/01/23 Location: ED Sex: F C Admitted: Test Reason : Blood Pressure : / mmHG Vent. Rate : 079 BPM Atrial Rate : 000 BPM P-R Int : 000 ms QRS Dur : 054 ms QT Int : 346 ms P-R-T Axes : 000 -31 034 degrees QTc Int : 396 ms Poor data quality, interpretation may be adversely affected Atrial fibrillation Left axis deviation Nonspecific ST and T wave abnormality Abnormal ECG Confirmed by Norm Bai ([id number]), newspaper editor managing MARCUS REYNOSO ([id number]) on 09/04/2023 2:19:10 PM Referred By: Confirmed By:Norm Bai 09/04/23 1419 Date Norm Bai MD CC: Dr. Arpit Jordan DO; Melvin Weber Signed Normal [facility] Absolute lymphocyte countOrd ered By: Arpit Jordan on 09-01-2023 Lymphocytes Auto (Unsp spec) [#/Vol] 1.98 10*3/uL 0.83-4.51 [facility] Activated partial thrombopla stin time (aPTT) in platelet poor plasma by coagulation aOrdered By: Arpit Jordan on 09-01-2023 aPTT Coag (PPP) [Time] 78.5 s 24.1-36.2 [facility] Automated lymphocyte count a s percentage of total leukocytesOrdered By: Arpit Jordan on 09-01-2023 Lymphocytes/100 WBC Auto (Unsp spec) 16.3 % 19-41 [facility] Basophil percentageOrdered B y: Arpit Jordan on 09-01-2023 Basophils/100 WBC (Bld) 0.7 % 0-1 [facility] Bilirubin [Mass/Vol] 0.30 mg/dL 0.20-1.00 [facility] Comment on above: For patients on eltr ombopag therapy, use of Dimension [place] TBIL is not recommended. Chloride [Moles/Vol] 109 mmol/L 98-107 [facility] Eosinophils/100 WBC (Bld) 4.4 % 0-5 [facility] Glucose [Mass/Vol] 104 mg/dL 74-106 [facility] Comment on above: Fasting Glucose resu lt from 100 to 125 mg/dL suggests IMPAIRED HOMEOSTASIS per A.D.A. criteria. Hemoglobin (Bld) [Mass/Vol] 12.0 g/dL 12.0-15.0 [facility] Monocytes/100 WBC (Bld) 9.3 % 0-10 [facility] Neutrophils (Bld) [#/Vol] 8.4 10*3/uL 2.0-7.7 [facility] Neutrophils/100 WBC (Bld) 68.9 % 47-70 [facility] Potassium [Moles/Vol] 4.6 mmol/L 3.5-5.1 [facility] Protein [Mass/Vol] 7.1 g/dL 6.4-8.2 [facility] Sodium [Moles/Vol] 142 mmol/L 136-145 [facility] WBC (Bld) [#/Vol] 12.1 10*3/uL 4.4-11.0 [facility] CBC W/Diff, Automatedon 08-13 Absolute Lymph 1.98 X10 3/uL Normal 0.83-4.51 [facility] Comment on above: Performed By: #### L 500.4050, L100.0100, L501.9520 #### [facility] [address] [place], [place], [address] Absolute Neut 8.4 X10 3/uL High 2.0-7.7 [facility] Comment on above: Performed By: #### L 500.4050, L100.0100, L501.9520 #### [facility] [address] [place], [address] Basophils/100 WBC (Bld) 0.7 % Normal 0-1 [facility] Comment on above: Performed By: #### L 500.4050, L100.0100, L501.9520 #### [facility] [address] [place], [address] Eosinophils/100 WBC (Bld) 4.4 % Normal 0-5 [facility] Comment on above: Performed By: #### L 500.4050, L100.0100, L501.9520 #### [facility] [address] [place], [address] Erythrocyte distribution width (RBC) [Ratio] 13.6 % Normal 11.6-14.6 [facility] Comment on above: Performed By: #### L 500.4050, L100.0100, L501.9520 #### [facility] [address] [place], [address] Hematocrit (Bld) [Volume fraction] 37.3 % Normal 37-47 [facility] Comment on above: Performed By: #### L 500.4050, L100.0100, L501.9520 #### [facility] [address] [place], [address] Hemoglobin (Bld) [Mass/Vol] 12.0 g/dL Normal 12.0-15.0 [facility] Comment on above: Performed By: #### L 500.4050, L100.0100, L501.9520 #### [facility] [address] [place], [address] IG% 0.400 Normal 0.0-0.9 [facility] Comment on above: Result Comment: IG% - Immature Granulocytes (promyelocytes, myelocytes and metamyelocytes) > 1% indicates that a LEFT SHIFT is Present. Performed By: #### L 500.4050, L100.0100, L501.9520 #### [facility] [address] [place], [address] Lymphocytes/100 WBC (Bld) 16.3 % Low 19-41 [facility] Comment on above: Performed By: #### L 500.4050, L100.0100, L501.9520 #### [facility] [address] [place], [address] MCH (RBC) [Entitic mass] 30.1 pg Normal 27.0-32.0 [facility] Comment on above: Performed By: #### L 500.4050, L100.0100, L501.9520 #### [facility] [address] [place], [address] MCHC (RBC) [Mass/Vol] 32.2 g/dL Normal 32-36 [facility] Comment on above: Performed By: #### L 500.4050, L100.0100, L501.9520 #### [facility] [address] [place], [address] MCV (RBC) [Entitic vol] 93.5 fL Normal 81-99 [facility] Comment on above: Performed By: #### L 500.4050, L100.0100, L501.9520 #### [facility] [address] [place], [address] Monocytes/100 WBC (Bld) 9.3 % Normal 0-10 [facility] Comment on above: Performed By: #### L 500.4050, L100.0100, L501.9520 #### [facility] [address] [place], [address] Neutrophils/100 WBC (Bld) 68.9 % Normal 47-70 [facility] Comment on above: Performed By: #### L 500.4050, L100.0100, L501.9520 #### [facility] [address] [place], [address] Nucleated RBC (Bld) [#/Vol] 0 10*3/uL Normal 0-5 [facility] Comment on above: Performed By: #### L 500.4050, L100.0100, L501.9520 #### [facility] [address] [place], [address] Platelet mean volume (Bld) [Entitic vol] 10.5 fL Normal 6.2-12.0 [facility] Comment on above: Performed By: #### L 500.4050, L100.0100, L501.9520 #### [facility] [address] [place], [address] Platelets (Bld) [#/Vol] 306 10*3/uL Normal 150-450 [facility] Comment on above: Performed By: #### L 500.4050, L100.0100, L501.9520 #### [facility] [address] [place], [address] RBC (Bld) [#/Vol] 3.99 10*6/uL Low 4.2-5.4 [facility] Comment on above: Performed By: #### L 500.4050, L100.0100, L501.9520 #### [facility] [address] [place], [address] RDW SD 46.3 fl High 35.1-43.9 [facility] Comment on above: Performed By: #### L 500.4050, L100.0100, L501.9520 #### [facility] [address] [place], [address] WBC (Bld) [#/Vol] 12.1 10*3/uL High 4.4-11.0 [facility] Comment on above: Performed By: #### L 500.4050, L100.0100, L501.9520 #### [facility] [address] [place], [address] Comprehensive Metabolic Prof ilon 09-01-2023 Albumin [Mass/Vol] 3.5 g/dL Normal 3.2-5.0 [facility] Comment on above: Performed By: #### L 500.4050, L100.0100, L501.9520 #### [facility] [address] [place], [address] Albumin/Globulin [Mass ratio] 1.0 {ratio} Normal 0.9-2.4 [facility] Comment on above: Performed By: #### L 500.4050, L100.0100, L501.9520 #### [facility] [address] [place], [address] ALK P 86 U/L Normal 45-117 [facility] Comment on above: Performed By: #### L 500.4050, L100.0100, L501.9520 #### [facility] [address] [place], [address] ALT [Catalytic activity/Vol] 15 U/L Normal 13-56 [facility] Comment on above: Performed By: #### L 500.4050, L100.0100, L501.9520 #### [facility] [address] [place], [address] AST [Catalytic activity/Vol] 17 U/L Normal 15-37 [facility] Comment on above: Performed By: #### L 500.4050, L100.0100, L501.9520 #### [facility] [address] [place], [address] Bilirubin [Mass/Vol] 0.30 mg/dL Normal 0.20-1.00 [facility] Comment on above: Result Comment: For patients on eltrombopag therapy, use of Dimension [place] TBIL is not recommended. Performed By: #### L 500.4050, L100.0100, L501.9520 #### [facility] [address] [place], [address] BUN/CRE 26.2 RATIO High 10-20 [facility] Comment on above: Performed By: #### L 500.4050, L100.0100, L501.9520 #### [facility] [address] [place], [address] CA,Total 9.1 mg/dL Normal 8.5-10.1 [facility] Comment on above: Performed By: #### L 500.4050, L100.0100, L501.9520 #### [facility] [address] [place], [address] Chloride [Moles/Vol] 109 mmol/L High 98-107 [facility] Comment on above: Performed By: #### L 500.4050, L100.0100, L501.9520 #### [facility] [address] [place], [address] CO2 [Moles/Vol] 26.0 mmol/L Normal 21.0-32.0 [facility] Comment on above: Performed By: #### L 500.4050, L100.0100, L501.9520 #### [facility] [address] [place], [address] Creatinine [Mass/Vol] 0.80 mg/dL Normal 0.55-1.02 [facility] Comment on above: Result Comment: The validity of the calculated GFR GFRAA in patients over 70 years has not been determined. Clinical correlation is essential. Performed By: #### L 500.4050, L100.0100, L501.9520 #### [facility] [address] [place], [address] ECRCL 51.61 ml/min Normal [facility] Comment on above: Performed By: #### L 500.4050, L100.0100, L501.9520 #### [facility] [address] [place], [address] EST GFR - AA 87 mL/min Normal >60 [facility] Comment on above: Result Comment: Afri can [place] GFR Calc Performed By: #### L 500.4050, L100.0100, L501.9520 #### [facility] [address] [place], [address] GAP 7 Normal 5-15 [facility] Comment on above: Performed By: #### L 500.4050, L100.0100, L501.9520 #### [facility] [address] [place], [address] GFR/1.73 sq M.predicted among non-blacks MDRD (S/P/Bld) [Vol rate/Area] 72 mL/min/{1.73_m2} Normal >60 [facility] Comment on above: Result Comment: Non- GFR Calc Performed By: #### L 500.4050, L100.0100, L501.9520 #### [facility] [address] [place], [address] Globulin (S) [Mass/Vol] 3.6 g/dL Normal 2.2-4.2 [facility] Comment on above: Performed By: #### L 500.4050, L100.0100, L501.9520 #### [facility] [address] [place], [address] Glucose [Mass/Vol] 104 mg/dL Normal 74-106 [facility] Comment on above: Result Comment: Fast ing Glucose result from 100 to 125 mg/dL suggests IMPAIRED HOMEOSTASIS per A.D.A. criteria. Performed By: #### L 500.4050, L100.0100, L501.9520 #### [facility] [address] [place], [address] Potassium [Moles/Vol] 4.6 mmol/L Normal 3.5-5.1 [facility] Comment on above: Performed By: #### L 500.4050, L100.0100, L501.9520 #### [facility] [address] [place], [address] Sodium [Moles/Vol] 142 mmol/L Normal 136-145 [facility] Comment on above: Performed By: #### L 500.4050, L100.0100, L501.9520 #### [facility] [address] [place], [address] T PROT 7.1 g/dL Normal 6.4-8.2 [facility] Comment on above: Performed By: #### L 500.4050, L100.0100, L501.9520 #### [facility] [address] [place], [address] Urea nitrogen [Mass/Vol] 21 mg/dL High 7-18 [facility] Comment on above: Performed By: #### L 500.4050, L100.0100, L501.9520 #### [facility] [address] [place], [address] Determination of erythrocyte mean corpuscular volume (MCV)Ordered By: Arpit Jordan on 09-01-2023 MCV (RBC) [Entitic vol] 93.5 fL 81-99 [facility] Emergency Department Summary on 09-01-2023 Emergency Department Summary [facility] Medical Records Department [address] [place] [address] Emergency Department Summary 09/01/23 MR#: [id number] Acct: [id number] Name: SG VELASCO Rep #: [id number] : [id number] From: Arpit Jordan DO PCP: Melvin Weber Status:DEP ER Location: ED HPI History of Present Illness Chief Complaint: Lower Extremity Injury Informant: patient, family and EMS Narrative Narrative: 88-year-old female reportedly sustained a right distal femoral periprosthetic fracture this morning. Patient is currently at long-term has dementia. She has known atrial fibrillation and is on Eliquis. She reportedly had right knee replacement with Dr. Kiser (now retired). Patient is generally wheelchair-bound. [facility] Medical History Dementia DVT (deep venous thrombosis) History of blood clots Hyperlipidemia Hypertension Hypothyroidism Paroxysmal atrial fibrillation Rheumatoid arthritis Home Medications levothyroxine 200 mcg tablet 200 mcg PO DAILY thyroid 09/21/20 [History Last Taken 09/01/23] menthol 0.44 %-zinc oxide 20.6 % topical ointment (Calmoseptine) 1 applic topical TID skin protectant 07/07/21 [History Last Taken 07/12/21 05:40] polyethylene glycol 3350 17 gram oral powder packet 17 g PO DAILY CONSTIPATION 07/12/21 [History Last Taken 07/12/21 05:34] acetaminophen 325 mg tablet 650 mg PO Q4H PRN fever or pain 09/01/23 [History Last Taken 09/01/23] albuterol sulfate 0.63 mg/3 mL solution for nebulization 0.63 mg inhalation Q4H PRN shortness of breath or wheezing 09/01/23 [History Last Taken 08/19/23] apixaban 5 mg tablet (Eliquis) 5 mg PO BID 09/01/23 [History Last Taken 09/01/23] loratadine 10 mg tablet (Allerclear) 10 mg PO DAILY PRN allergy symptoms 09/01/23 [History Last Taken Unknown] losartan 50 mg tablet 50 mg PO DAILY 09/01/23 [History Last Taken Unknown] metoprolol tartrate 25 mg tablet 25 mg PO BID 09/01/23 [History Last Taken Unknown] oxycodone-acetaminoph en 5 mg-325 mg tablet 1 tab PO Q6H PRN PRN pain 5 days #20 TABLETS 09/01/23 [Rx Last Taken Unknown] triamcinolone acetonide 0.1 % topical ointment 1 applic topical Q12H PRN itching 09/01/23 [History Last Taken Unknown] Allergy/AdvReac Type Severity Reaction Status Date / Time ertapenem [From Invanz] Allergy Rash Verified 09/01/23 15:05 Penicillins Allergy Unknown Verified 09/01/23 15:05 Family History Father CVA (cerebral vascular accident) Mother Cancer Breast. Surgical History H/O discectomy History of appendectomy History of embolic filter insertion S/P insertion of IVC (inferior vena caval) filter Status post right knee replacement Social History household members: none Smoking Status: Never smoker alcohol intake: never substance use type: does not use ROS ROS ED ROS Narrative Patient currently denying pain. Constitutional Constitutional ED: Denies chills, fever(s) or weight loss Eyes Eyes: Denies change in vision or diplopia ENT ENT ED: Denies ear pain, rhinorrhea or sore throat Cardiovascular Cardiovascular: Denies chest pain, orthopnea, palpitations or racing heartbeat Respiratory/Chest Respiratory/Chest: Denies cough, dyspnea or orthopnea Gastrointestinal Gastrointestinal: Denies abdominal pain, diarrhea, nausea or vomiting Genitourinary Genitourinary ED: Denies dysuria, hematuria or urinary frequency Musculoskeletal Musculoskeletal: Denies arthralgias, back pain, myalgias or neck pain Integumentary Denies abscess or rash Neurologic Neurologic: Denies headache(s) or weakness Psychiatric Psychiatric: Denies anxiety, depression, suicidal ideation or suicidal thoughts Endocrine Endocrinology: Denies polydipsia, polyphagia or polyuria Allergic/Immunologic Allergic/Immunologic ED: Denies mouth swelling, tongue swelling or urticaria EXAM Physical Exam Const Vital Signs: 09/01/23 15:05 09/01/23 16:05 09/01/23 17:00 Temperature 98.6 F Temperature Source Temporal Pulse Rate 95 82 99 Respiratory Rate 22 H 18 16 Blood Pressure 151/86 H 168/98 H 184/89 H Blood Pressure Mean 107 121 120 Pulse Ox 97 97 99 Oxygen Delivery Method Room Air Room Air Room Air 09/01/23 17:54 09/01/23 18:00 Temperature Temperature Source Pulse Rate 107 H 97 Respiratory Rate 26 H Blood Pressure 156/82 H 159/47 H Blood Pressure Mean 106 84 Pulse Ox 91 Oxygen Delivery Method Room Air Positive well nourished, well developed and obese General Appearance ED: well developed Nutritional Appearance: obese HEENT Reports normocephalic, head/scalp atraumatic and mois (more content not included)... Normal [facility] Erythrocyte distribution wid th ratioOrdered By: Arpit Jordan on 09-01-2023 Erythrocyte distribution width (RBC) [Ratio] 13.6 % 11.6-14.6 [facility] Erythrocyte distribution wid th standard deviationOrdered By: Arpit Jordan on 09-01-2023 Erythrocyte distribution width (RBC) [Entitic vol] 46.3 fL 35.1-43.9 [facility] Extremity Lower without Cont raon 09-01-2023 Extremity Lower without Contra [facility] [address] [place] [address] Extremity Lower without Contra MR#: [id number] Acct: [id number] Name: SG VELASCO Rep #: [id number] : 1935 F 88 From: Ras Wooten MD PCP: Melvin Weber Status: REG ER Study: Extremity Lower without Contra Date of Exam: 0 09/01/23 Exam# [id number] Ordering Dr: Arpit Jordan DO [id number] CT RIGHT LOWER EXTREMITY WITH 3-D IMAGING CLINICAL INDICATION: abnormal knee xray -- please see September 01, 2023 TECHNIQUE: Axial CT images of the RIGHT lower extremity was performed IV contrast material. Coronal and sagittal reformats were provided. RADIATION DOSAGE (If Supplied By Facility): CTDIvol = ( 15.35 ) mGy, DLP = ( 427.90 ) mGycm COMPARISON: Knee x-rays September 01, 2023 FINDINGS: Bones: Acute impacted supracondylar fracture of the knee with mild overlapping of fracture fragments with most severe involvement of the lateral shaft.. There is no definitive evidence for displacement of the prosthesis No lytic or blastic osseous masses. Soft Tissues: Suboptimal visualization of soft tissue due to artifact although there is a suprapatellar bursal effusion . CT/Extremity Lower without Contra IMPRESSION: Impacted supracondylar fracture fracture with most pronounced involvement of the lateral shaft with overlapping of fracture fragments. There is no appreciable displacement of the prosthesis which was suggested on the plain film study which was artifactual due to rotation of the patient Electronically Signed: Ras Wooten MD at 17:42 EDT , CC: Dr. Arpit Jordan DO; Melvin Weber Rat Exterminator: Signed Normal [facility] Femur Min 2 Viewson 09-01-19 Femur Min 2 Views [facility] [address] [place] [address] Femur Min 2 Views MR#: [id number] Acct: [id number] Name: SG VELASCO Rep #: [id number] : 1935 F 88 From: Ras Wooten MD PCP: Melvin Weber Status: REG ER Study: Femur Min 2 Views Date of Exam: 09/01/23 Exam# [id number] Ordering Dr: Arpit Jordan DO [id number] STUDY: X-RAY - RIGHT FEMUR REASON FOR STUDY: Female, 88 years old. distal femur fracture TECHNIQUE: 4 view(s) of the femur. COMPARISON: None. FINDINGS: There is an acute minimally displaced fracture of the medial femoral epicondyle in association with apparent lateral migration of the prosthesis. Suprapatellar effusion is noted.. Degenerative changes of right hip. RAD/Femur Min 2 Views IMPRESSION: Fracture of the medial femoral epicondyle which is not completely visualized but associated with migration of the prosthesis. CT recommended Electronically Signed: Ras Wooten MD at 16:56 EDT , CC: Dr. Arpit Jordan DO; Melvin Weber Rat Exterminator: Signed Normal [facility] Hematocrit Auto (Bld) [Volum e fraction]Ordered By: Arpit Jordan on 09-01-2023 Hematocrit (Bld) [Volume fraction] 37.3 % 37-47 [facility] Immature granulocytes/100 WB C Auto (Bld)Ordered By: Arpit Jordan on 09-01-2023 Immature granulocytes/100 WBC (Bld) 0.400 % 0.0-0.9 [facility] Comment on above: IG% - Immature Granu locytes (promyelocytes, myelocytes and metamyelocytes) > 1% indicates that a LEFT SHIFT is Present. Knee 1 or 2 Viewson 09-01-19 Knee 1 or 2 Views [facility] [address] [place] [address] Knee 1 or 2 Views MR#: [id number] Acct: [id number] Name: SG VELASCO JANEL Rep #: [id number] : 1935 F 88 From: aRs Wooten MD PCP: Melvin Weber Status: REG ER Study: Knee 1 or 2 Views Date of Exam: 09/01/23 Exam# [id number] Ordering Dr: Arpit Jordan DO [id number] STUDY: X-RAY - RIGHT KNEE REASON FOR EXAM: Female, 88 years old. periprosthetic fracture TECHNIQUE: 2 view(s) of the knee. COMPARISON: None. FINDINGS: Knee prosthesis is noted. On the AP view there appears to be displacement of the lateral aspect of the femoral compartment of the prosthesis on the confines of the bone suspicious for fracture however. This is suggested but not well visualized on lateral projection. There is a suprapatellar bursal effusion. RAD/Knee 1 or 2 Views IMPRESSION: Findings suspicious for acute fracture of the distal femur with lateral displacement of the prosthesis CT recommended for more definitive evaluation Electronically Signed: Ras Wooten MD at 16:52 EDT , CC: Dr. Arpit Jordan, DO; Melvin Weber Rat Exterminator: Signed Normal [facility] Laboratory - Chemistry and C hemistry - challengeOrdered By: Arpit Jordan on 09-01-2023 Albumin/Globulin [Mass ratio] 1.0 {ratio} 0.9-2.4 [facility] ALP [Catalytic activity/Vol] 86 U/L 45-117 [facility] ALT [Catalytic activity/Vol] 15 U/L 13-56 [facility] CO2 [Moles/Vol] 26.0 mmol/L 21.0-32.0 [facility] Globulin (S) [Mass/Vol] 3.6 g/dL 2.2-4.2 [facility] Urea nitrogen/Creatinine [Mass ratio] 26.2 mg/mg 10-20 [facility] Laboratory - CoagulationOrde red By: Arpit Jordan on 09-01-2023 INR Coag (Bld) [Relative time] 1.2 {INR} [facility] PT Coag (PPP) [Time] 15.5 s 11.7-14.9 [facility] - Hematology and Cell countsOrdered By: Arpit Jordan on 09-01-2023 MCH (RBC) [Entitic mass] 30.1 pg 27.0-32.0 [facility] MCHC (RBC) [Mass/Vol] 32.2 g/dL 32-36 [facility] Nucleated RBC/100 WBC (Bld) [Ratio] 0 % 0-5 [facility] Platelet mean volume (Bld) [Entitic vol] 10.5 fL 6.2-12.0 [facility] Platelets (Bld) [#/Vol] 306 10*3/uL 150-450 [facility] No Panel InformationOrdered By: Arpit Jordan on 09-01-2023 Estimated Creatinine Clearance Calc 51.61 ml/min [facility] Estimated GFR (MDRD) Amer 87 mL/min >60 [facility] Comment on above: GFR Calc Estimated GFR (MDRD) Non-Af Amer 72 mL/min >60 [facility] Comment on above: Non- GFR Calc Partial Thromboplast Timeon 09-01-2023 aPTT Coag (Bld) [Time] 78.5 s High 24.1-36.2 [facility] Comment on above: Performed By: #### L 500.4050, L100.0100, L501.9520 #### [facility] [address] [place], [address] Prothrombin Time w/INRon INR Coag (PPP) [Relative time] 1.2 {INR} Normal [facility] Comment on above: Performed By: #### L 500.4050, L100.0100, L501.9520 #### [facility] [address] [place], [address] PT Coag (PPP) [Time] 15.5 s High 11.7-14.9 [facility] Comment on above: Performed By: #### L 500.4050, L100.0100, L501.9520 #### [facility] [address] [place], [address] RBC Auto (Bld) [#/Vol]Ordere d By: Arpit Jordan on 09-01-2023 RBC (Bld) [#/Vol] 3.99 10*6/uL 4.2-5.4 [facility] Serum or plasma calcium bryan urement (mass/volume)Ordered By: Arpit Jordan on 09-01-2023 Calcium [Mass/Vol] 9.1 mg/dL 8.5-10.1 [facility] Serum or plasma creatinine m easurement (mass/volume)Ordered By: Arpit Jordan on 09-01-2023 Creatinine [Mass/Vol] 0.80 mg/dL 0.55-1.02 [facility] Comment on above: The validity of the calculated GFR & GFRAA in patients over 70 years has not been determined. Clinical correlation is essential. Serum or plasma urea nitroge n measurement (mass/volume)Ordered By: Arpit Jordan on 09-01-2023 Urea nitrogen [Mass/Vol] 21 mg/dL 7-18 [facility] Thin prep Papanicolaou smear with manual screeningOrdered By: Arpit Jordan on 09-01-2023 Thin prep Papanicolaou smear with manual screening 3.5 g/dL 3.2-5.0 [facility] Thin prep Papanicolaou smear with manual screening 17 U/L 15-37 [facility] Thin prep Papanicolaou smear with manual screening 7 5-15 [facility] Absolute lymphocyte countOrd ered By: David Calloway on 03-22-2023 Lymphocytes Auto (Unsp spec) [#/Vol] 1.80 10*3/uL 0.83-4.51 [facility] Basophil percentageOrdered B y: David Calloway on 03-22-2023 Basophils/100 WBC (Bld) 0.9 % 0-1 [facility] Bilirubin [Mass/Vol] 0.50 mg/dL 0.20-1.00 [facility] Comment on above: For patients on eltr ombopag therapy, use of Dimension [place] TBIL is not recommended. Chloride [Moles/Vol] 110 mmol/L 98-107 [facility] Eosinophils/100 WBC (Bld) 6.8 % 0-5 [facility] Glucose [Mass/Vol] 89 mg/dL 74-106 [facility] Neutrophils (Bld) [#/Vol] 4.0 10*3/uL 2.0-7.7 [facility] Neutrophils/100 WBC (Bld) 56.7 % 47-70 [facility] Potassium [Moles/Vol] 4.2 mmol/L 3.5-5.1 [facility] Protein [Mass/Vol] 5.9 g/dL 6.4-8.2 [facility] Sodium [Moles/Vol] 142 mmol/L 136-145 [facility] WBC (Bld) [#/Vol] 7.0 10*3/uL 4.4-11.0 [facility] Blood erythrocytes count (nu mber/volume)Ordered By: David Calloway on 03-22-2023 RBC (Bld) [#/Vol] 3.71 10*6/uL 4.2-5.4 [facility] Blood hemoglobin measurement (mass/volume)Ordered By: David Calloway on 03-22-2023 Hemoglobin (Bld) [Mass/Vol] 11.0 g/dL 12.0-15.0 [facility] Blood lymphocytes/100 leukoc ytesOrdered By: David Calloway on 03-22-2023 Lymphocytes/100 WBC (Bld) 25.9 % 19-41 [facility] Blood monocytes/100 leukocyt esOrdered By: David Calloway on 03-22-2023 Monocytes/100 WBC (Bld) 9.6 % 0-10 [facility] Blood platelet mean volumeOr dered By: David Calloway on 03-22-2023 Platelet mean volume (Bld) [Entitic vol] 11.1 fL 6.2-12.0 [facility] Determination of erythrocyte mean corpuscular volume (MCV)Ordered By: David Calloway on 03-22-2023 MCV (RBC) [Entitic vol] 92.7 fL 81-99 [facility] Hematocrit Auto (Bld) [Volum e fraction]Ordered By: David Calloway on 03-22-2023 Hematocrit (Bld) [Volume fraction] 34.4 % 37-47 [facility] Laboratory - Chemistry and C hemistry - challengeOrdered By: David Calloway on 03-22-2023 ALP [Catalytic activity/Vol] 81 U/L 45-117 [facility] ALT [Catalytic activity/Vol] 11 U/L 13-56 [facility] CO2 [Moles/Vol] 28.0 mmol/L 21.0-32.0 [facility] Globulin (S) [Mass/Vol] 3.5 g/dL 2.2-4.2 [facility] Urea nitrogen/Creatinine [Mass ratio] 29.7 mg/mg 10-20 [facility] - Hematology and Cell countsOrdered By: David Calloway on 03-22-2023 Erythrocyte distribution width (RBC) [Entitic vol] 47.9 fL 35.1-43.9 [facility] Erythrocyte distribution width (RBC) [Ratio] 14.1 % 11.6-14.6 [facility] Immature granulocytes/100 WBC (Bld) 0.100 % 0.0-0.9 [facility] Comment on above: IG% - Immature Granu locytes (promyelocytes, myelocytes and metamyelocytes) > 1% indicates that a LEFT SHIFT is Present. MCH (RBC) [Entitic mass] 29.6 pg 27.0-32.0 [facility] Nucleated RBC/100 WBC (Bld) [Ratio] 0 % 0-5 [facility] MCHC Auto (RBC) [Mass/Vol]Or dered By: David Calloway on 03-22-2023 MCHC (RBC) [Mass/Vol] 32.0 g/dL 32-36 [facility] No Panel InformationOrdered By: David Calloway on 03-22-2023 Estimated GFR (MDRD) Amer 106 mL/min >60 [facility] Comment on above: GFR Calc Estimated GFR (MDRD) Non-Af Amer 88 mL/min >60 [facility] Comment on above: Non- GFR Calc Thyroid Stimulating Hormone (TSH) 0.50 uIU/mL 0.358-3.74 [facility] Platelets bldOrdered By: David Calloway on 03-22-2023 Platelets (Bld) [#/Vol] 280 10*3/uL 150-450 [facility] Serum or plasma albumin bryan urement (mass/volume)Ordered By: David Calloway on 03-22-2023 Albumin [Mass/Vol] 2.4 g/dL 3.2-5.0 [facility] Serum or plasma albumin/glob ulin mass ratioOrdered By: David Calloway on 03-22-2023 Albumin/Globulin [Mass ratio] 0.7 {ratio} 0.9-2.4 [facility] Serum or plasma calcium bryan urement (mass/volume)Ordered By: David Calloway on 03-22-2023 Calcium [Mass/Vol] 8.7 mg/dL 8.5-10.1 [facility] Serum or plasma creatinine m easurement (mass/volume)Ordered By: David Calloway on 03-22-2023 Creatinine [Mass/Vol] 0.67 mg/dL 0.55-1.02 [facility] Comment on above: The validity of the calculated GFR & GFRAA in patients over 70 years has not been determined. Clinical correlation is essential. Serum or plasma urea nitroge n measurement (mass/volume)Ordered By: David Calloway on 03-22-2023 Urea nitrogen [Mass/Vol] 20 mg/dL 7-18 [facility] Thin prep Papanicolaou smear with manual screeningOrdered By: David Calloway on 03-22-2023 Thin prep Papanicolaou smear with manual screening 14 U/L 15-37 [facility] Thin prep Papanicolaou smear with manual screening 4 5-15 [facility] No Panel InformationOrdered By: David Calloway on 12-16-2022 Thyroid Stimulating Hormone (TSH) 0.45 uIU/mL 0.358-3.74 [facility] No Panel InformationOrdered By: David Calloway on 10-31-2022 Thyroid Stimulating Hormone (TSH) 0.25 uIU/mL 0.358-3.74 [facility] Absolute lymphocyte countOrd ered By: David Calloway on 09-19-2022 Lymphocytes Auto (Unsp spec) [#/Vol] 1.70 10*3/uL 0.83-4.51 [facility] Basophil percentageOrdered B y: David Calloway on 09-19-2022 Basophils/100 WBC (Bld) 0.7 % 0-1 [facility] Bilirubin [Mass/Vol] 0.40 mg/dL 0.20-1.00 [facility] Comment on above: For patients on eltr ombopag therapy, use of Dimension [place] TBIL is not recommended. Chloride [Moles/Vol] 109 mmol/L 98-107 [facility] Eosinophils/100 WBC (Bld) 6.5 % 0-5 [facility] Glucose [Mass/Vol] 100 mg/dL 74-106 [facility] Comment on above: Fasting Glucose resu lt from 100 to 125 mg/dL suggests IMPAIRED HOMEOSTASIS per A.D.A. criteria. Neutrophils (Bld) [#/Vol] 3.9 10*3/uL 2.0-7.7 [facility] Neutrophils/100 WBC (Bld) 56.9 % 47-70 [facility] Potassium [Moles/Vol] 4.1 mmol/L 3.5-5.1 [facility] Protein [Mass/Vol] 6.5 g/dL 6.4-8.2 [facility] Sodium [Moles/Vol] 141 mmol/L 136-145 [facility] WBC (Bld) [#/Vol] 6.8 10*3/uL 4.4-11.0 [facility] Blood erythrocytes count (nu mber/volume)Ordered By: David Calloway on 09-19-2022 RBC (Bld) [#/Vol] 4.01 10*6/uL 4.2-5.4 [facility] Blood hemoglobin measurement (mass/volume)Ordered By: David Calloway on 09-19-2022 Hemoglobin (Bld) [Mass/Vol] 11.2 g/dL 12.0-15.0 [facility] Blood lymphocytes/100 leukoc ytesOrdered By: David Calloway on 09-19-2022 Lymphocytes/100 WBC (Bld) 25.0 % 19-41 [facility] Blood monocytes/100 leukocyt esOrdered By: David Calloway on 09-19-2022 Monocytes/100 WBC (Bld) 10.8 % 0-10 [facility] Blood platelet mean volumeOr dered By: David Calloway on 09-19-2022 Platelet mean volume (Bld) [Entitic vol] 10.7 fL 6.2-12.0 [facility] Determination of erythrocyte mean corpuscular volume (MCV)Ordered By: David Calloway on 09-19-2022 MCV (RBC) [Entitic vol] 86.3 fL 81-99 [facility] Hematocrit Auto (Bld) [Volum e fraction]Ordered By: David Calloway on 09-19-2022 Hematocrit (Bld) [Volume fraction] 34.6 % 37-47 [facility] Laboratory - Chemistry and C hemistry - challengeOrdered By: David Calloway on 09-19-2022 ALP [Catalytic activity/Vol] 96 U/L 45-117 [facility] ALT [Catalytic activity/Vol] 12 U/L 13-56 [facility] CO2 [Moles/Vol] 26.0 mmol/L 21.0-32.0 [facility] Globulin (S) [Mass/Vol] 3.9 g/dL 2.2-4.2 [facility] Urea nitrogen/Creatinine [Mass ratio] 28.0 mg/mg 10-20 [facility] - Hematology and Cell countsOrdered By: David Calloway on 09-19-2022 Erythrocyte distribution width (RBC) [Entitic vol] 48.5 fL 35.1-43.9 [facility] Erythrocyte distribution width (RBC) [Ratio] 15.3 % 11.6-14.6 [facility] Immature granulocytes/100 WBC (Bld) 0.100 % 0.0-0.9 [facility] Comment on above: IG% - Immature Granu locytes (promyelocytes, myelocytes and metamyelocytes) > 1% indicates that a LEFT SHIFT is Present. MCH (RBC) [Entitic mass] 27.9 pg 27.0-32.0 [facility] Nucleated RBC/100 WBC (Bld) [Ratio] 0 % 0-5 [facility] MCHC Auto (RBC) [Mass/Vol]Or dered By: David Calloway on 09-19-2022 MCHC (RBC) [Mass/Vol] 32.4 g/dL 32-36 [facility] No Panel InformationOrdered By: David Calloway on 09-19-2022 Estimated GFR (MDRD) Amer 139 mL/min >60 [facility] Comment on above: GFR Calc Estimated GFR (MDRD) Non-Af Amer 115 mL/min >60 [facility] Comment on above: Non- GFR Calc Thyroid Stimulating Hormone (TSH) 0.06 uIU/mL 0.358-3.74 [facility] Platelets bldOrdered By: David Calloway on 09-19-2022 Platelets (Bld) [#/Vol] 381 10*3/uL 150-450 [facility] Serum or plasma albumin bryan urement (mass/volume)Ordered By: David Calloway on 09-19-2022 Albumin [Mass/Vol] 2.6 g/dL 3.2-5.0 [facility] Serum or plasma albumin/glob ulin mass ratioOrdered By: David Calloway on 09-19-2022 Albumin/Globulin [Mass ratio] 0.7 {ratio} 0.9-2.4 [facility] Serum or plasma calcium bryan urement (mass/volume)Ordered By: David Calloway on 09-19-2022 Calcium [Mass/Vol] 9.3 mg/dL 8.5-10.1 [facility] Serum or plasma creatinine m easurement (mass/volume)Ordered By: David Calloway on 09-19-2022 Creatinine [Mass/Vol] 0.54 mg/dL 0.55-1.02 [facility] Comment on above: The validity of the calculated GFR & GFRAA in patients over 70 years has not been determined. Clinical correlation is essential. Serum or plasma urea nitroge n measurement (mass/volume)Ordered By: David Calloway on 09-19-2022 Urea nitrogen [Mass/Vol] 15 mg/dL 7-18 [facility] Thin prep Papanicolaou smear with manual screeningOrdered By: David Calloway on 09-19-2022 Thin prep Papanicolaou smear with manual screening 18 U/L 15-37 [facility] Thin prep Papanicolaou smear with manual screening 6 5-15 [facility] Absolute lymphocyte countOrd ered By: David Calloway on 06-22-2022 Lymphocytes Auto (Unsp spec) [#/Vol] 1.89 10*3/uL 0.83-4.51 [facility] Basophil percentageOrdered B y: David Calloway on 06-22-2022 Basophils/100 WBC (Bld) 0.6 % 0-1 [facility] Bilirubin [Mass/Vol] 0.30 mg/dL 0.20-1.00 [facility] Comment on above: For patients on eltr ombopag therapy, use of Dimension [place] TBIL is not recommended. Chloride [Moles/Vol] 107 mmol/L 98-107 [facility] Eosinophils/100 WBC (Bld) 6.4 % 0-5 [facility] Glucose [Mass/Vol] 83 mg/dL 74-106 [facility] Neutrophils (Bld) [#/Vol] 4.1 10*3/uL 2.0-7.7 [facility] Neutrophils/100 WBC (Bld) 57.8 % 47-70 [facility] Potassium [Moles/Vol] 4.4 mmol/L 3.5-5.1 [facility] Protein [Mass/Vol] 6.1 g/dL 6.4-8.2 [facility] Sodium [Moles/Vol] 141 mmol/L 136-145 [facility] WBC (Bld) [#/Vol] 7.2 10*3/uL 4.4-11.0 [facility] Blood erythrocytes count (nu mber/volume)Ordered By: David Calloway on 06-22-2022 RBC (Bld) [#/Vol] 3.63 10*6/uL 4.2-5.4 [facility] Blood hemoglobin measurement (mass/volume)Ordered By: David Calloway on 06-22-2022 Hemoglobin (Bld) [Mass/Vol] 10.1 g/dL 12.0-15.0 [facility] Blood lymphocytes/100 leukoc ytesOrdered By: David Calloway on 06-22-2022 Lymphocytes/100 WBC (Bld) 26.4 % 19-41 [facility] Blood monocytes/100 leukocyt esOrdered By: David Calloway on 06-22-2022 Monocytes/100 WBC (Bld) 8.5 % 0-10 [facility] Blood platelet mean volumeOr dered By: David Calloway on 06-22-2022 Platelet mean volume (Bld) [Entitic vol] 10.9 fL 6.2-12.0 [facility] Determination of erythrocyte mean corpuscular volume (MCV)Ordered By: David Calloway on 06-22-2022 MCV (RBC) [Entitic vol] 90.6 fL 81-99 [facility] Hematocrit Auto (Bld) [Volum e fraction]Ordered By: David Calloway on 06-22-2022 Hematocrit (Bld) [Volume fraction] 32.9 % 37-47 [facility] Laboratory - Chemistry and C hemistry - challengeOrdered By: David Calloway on 06-22-2022 ALP [Catalytic activity/Vol] 71 U/L 45-117 [facility] ALT [Catalytic activity/Vol] 11 U/L 13-56 [facility] CO2 [Moles/Vol] 27.0 mmol/L 21.0-32.0 [facility] Globulin (S) [Mass/Vol] 3.6 g/dL 2.2-4.2 [facility] Urea nitrogen/Creatinine [Mass ratio] 34.2 mg/mg 10-20 [facility] - Hematology and Cell countsOrdered By: David Calloway on 06-22-2022 Erythrocyte distribution width (RBC) [Entitic vol] 49.0 fL 35.1-43.9 [facility] Erythrocyte distribution width (RBC) [Ratio] 14.6 % 11.6-14.6 [facility] Immature granulocytes/100 WBC (Bld) 0.300 % 0.0-0.9 [facility] Comment on above: IG% - Immature Granu locytes (promyelocytes, myelocytes and metamyelocytes) > 1% indicates that a LEFT SHIFT is Present. MCH (RBC) [Entitic mass] 27.8 pg 27.0-32.0 [facility] Nucleated RBC/100 WBC (Bld) [Ratio] 0 % 0-5 [facility] MCHC Auto (RBC) [Mass/Vol]Or dered By: David Calloway on 06-22-2022 MCHC (RBC) [Mass/Vol] 30.7 g/dL 32-36 [facility] No Panel InformationOrdered By: David Calloway on 06-22-2022 Estimated GFR (MDRD) Amer 118 mL/min >60 [facility] Comment on above: GFR Calc Estimated GFR (MDRD) Non-Af Amer 98 mL/min >60 [facility] Comment on above: Non- GFR Calc Thyroid Stimulating Hormone (TSH) 0.44 uIU/mL 0.358-3.74 [facility] Platelets bldOrdered By: David Calloway on 06-22-2022 Platelets (Bld) [#/Vol] 393 10*3/uL 150-450 [facility] Serum or plasma albumin bryan urement (mass/volume)Ordered By: David Calloway on 06-22-2022 Albumin [Mass/Vol] 2.5 g/dL 3.2-5.0 [facility] Serum or plasma albumin/glob ulin mass ratioOrdered By: David Calloway on 06-22-2022 Albumin/Globulin [Mass ratio] 0.7 {ratio} 0.9-2.4 [facility] Serum or plasma calcium bryan urement (mass/volume)Ordered By: David Calloway on 06-22-2022 Calcium [Mass/Vol] 8.8 mg/dL 8.5-10.1 [facility] Serum or plasma creatinine m easurement (mass/volume)Ordered By: David Calloway on 06-22-2022 Creatinine [Mass/Vol] 0.61 mg/dL 0.55-1.02 [facility] Comment on above: The validity of the calculated GFR & GFRAA in patients over 70 years has not been determined. Clinical correlation is essential. Serum or plasma urea nitroge n measurement (mass/volume)Ordered By: David Calloway on 06-22-2022 Urea nitrogen [Mass/Vol] 21 mg/dL 7-18 [facility] Thin prep Papanicolaou smear with manual screeningOrdered By: David Calloway on 06-22-2022 Thin prep Papanicolaou smear with manual screening 14 U/L 15-37 [facility] Thin prep Papanicolaou smear with manual screening 7 5-15 [facility] Absolute lymphocyte counton 03-22-2022 Lymphocytes Auto (Unsp spec) [#/Vol] 1.76 10*3/uL 0.83-4.51 [facility] Work Phone: Basophil percentageon 2021 Basophils/100 WBC (Bld) 0.6 % 0-1 [facility] Work Phone: Bilirubin [Mass/Vol] 0.30 mg/dL 0.20-1.00 [facility] Work Phone: Comment on above: For patients on eltr ombopag therapy, use of Dimension [place] TBIL is not recommended. Chloride [Moles/Vol] 109 mmol/L 98-107 [facility] Work Phone: Eosinophils/100 WBC (Bld) 7.1 % 0-5 [facility] Work Phone: Glucose [Mass/Vol] 82 mg/dL 74-106 [facility] Work Phone: Neutrophils (Bld) [#/Vol] 4.2 10*3/uL 2.0-7.7 [facility] Work Phone: Neutrophils/100 WBC (Bld) 58.4 % 47-70 [facility] Work Phone: Potassium [Moles/Vol] 4.4 mmol/L 3.5-5.1 [facility] Work Phone: Protein [Mass/Vol] 6.5 g/dL 6.4-8.2 [facility] Work Phone: [phone] Sodium [Moles/Vol] 140 mmol/L 136-145 [facility] Work Phone: [phone] WBC (Bld) [#/Vol] 7.2 10*3/uL 4.4-11.0 [facility] Work Phone: [phone] Blood erythrocytes count (nu mber/volume)on 03-22-2022 RBC (Bld) [#/Vol] 3.71 10*6/uL 4.2-5.4 [facility] [place] Work Phone: [phone] Blood hemoglobin measurement (mass/volume)on 03-22-2022 Hemoglobin (Bld) [Mass/Vol] 10.5 g/dL 12.0-15.0 [facility] Work Phone: [phone] Blood lymphocytes/100 leukoc yteson 03-22-2022 Lymphocytes/100 WBC (Bld) 24.4 % 19-41 [facility] Work Phone: [phone] Blood monocytes/100 leukocyt eson 03-22-2022 Monocytes/100 WBC (Bld) 9.4 % 0-10 [facility] Work Phone: [phone] Blood platelet mean volumeon 03-22-2022 Platelet mean volume (Bld) [Entitic vol] 11.2 fL 6.2-12.0 [facility] Work Phone: [phone] Determination of erythrocyte mean corpuscular volume (MCV)on 03-22-2022 MCV (RBC) [Entitic vol] 91.9 fL 81-99 [facility] Work Phone: [phone] Hematocrit Auto (Bld) [Volum e fraction]on 03-22-2022 Hematocrit (Bld) [Volume fraction] 34.1 % 37-47 [facility] Work Phone: [phone] Laboratory - Chemistry and C hemistry - challengeon 03-22-2022 ALP [Catalytic activity/Vol] 81 U/L 45-117 [facility] Work Phone: [phone] ALT [Catalytic activity/Vol] 16 U/L 13-56 [facility] Work Phone: CO2 [Moles/Vol] 23.0 mmol/L 21.0-32.0 [facility] Work Phone: [phone] Globulin (S) [Mass/Vol] 3.8 g/dL 2.2-4.2 [facility] Work Phone: [phone] Urea nitrogen/Creatinine [Mass ratio] 34.8 mg/mg 10-20 [facility] Work Phone: [phone] Laboratory - Hematology and Cell countson 03-22-2022 Erythrocyte distribution width (RBC) [Entitic vol] 48.8 fL 35.1-43.9 [facility] Work Phone: [phone] Erythrocyte distribution width (RBC) [Ratio] 14.6 % 11.6-14.6 [facility] Work Phone: [phone] Immature granulocytes/100 WBC (Bld) 0.100 % 0.0-0.9 [facility] Work Phone: [phone] Comment on above: IG% - Immature Granu locytes (promyelocytes, myelocytes and metamyelocytes) > 1% indicates that a LEFT SHIFT is Present. MCH (RBC) [Entitic mass] 28.3 pg 27.0-32.0 [facility] Work Phone: [phone] Nucleated RBC/100 WBC (Bld) [Ratio] 0 % 0-5 [facility] Work Phone: [phone] MCHC Auto (RBC) [Mass/Vol]on 03-22-2022 MCHC (RBC) [Mass/Vol] 30.8 g/dL 32-36 [facility] Work Phone: [phone] Panel Informationon 03-22 Estimated GFR (MDRD) Amer 87 mL/min >60 [facility] Work Phone: [phone] Comment on above: GFR Calc Estimated GFR (MDRD) Non-Af Amer 72 mL/min >60 [facility] Work Phone: [phone] Comment on above: Non- GFR Calc Thyroid Stimulating Hormone (TSH) 1.77 uIU/mL 0.358-3.74 [facility] Work Phone: Platelets bldon 03-22-2022 Platelets (Bld) [#/Vol] 348 10*3/uL 150-450 [facility] Work Phone: [phone] Serum or plasma albumin bryan urement (mass/volume)on 03-22-2022 Albumin [Mass/Vol] 2.7 g/dL 3.2-5.0 [facility] Work Phone: [phone] Serum or plasma albumin/glob ulin mass ratioon 03-22-2022 Albumin/Globulin [Mass ratio] 0.7 {ratio} 0.9-2.4 [facility] Work Phone: [phone] Serum or plasma calcium bryan urement (mass/volume)on 03-22-2022 Calcium [Mass/Vol] 9.1 mg/dL 8.5-10.1 [facility] Work Phone: Serum or plasma creatinine m easurement (mass/volume)on 03-22-2022 Creatinine [Mass/Vol] 0.80 mg/dL 0.55-1.02 [facility] Work Phone: Comment on above: The validity of the calculated GFR & GFRAA in patients over 70 years has not been determined. Clinical correlation is essential. Serum or plasma urea nitroge n measurement (mass/volume)on 03-22-2022 Urea nitrogen [Mass/Vol] 28 mg/dL 7-18 [facility] Work Phone: Thin prep Papanicolaou smear with manual screeningon 03-22-2022 Thin prep Papanicolaou smear with manual screening 23 U/L 15-37 [facility] Work Phone: [phone] Thin prep Papanicolaou smear with manual screening 8 5-15 [facility] Work Phone: Absolute lymphocyte counton 12-23-2021 Lymphocytes Auto (Unsp spec) [#/Vol] 1.43 10*3/uL 0.83-4.51 [facility] Work Phone: Basophil percentageon 2021 Basophils/100 WBC (Bld) 0.8 % 0-1 [facility] Work Phone: Bilirubin [Mass/Vol] 0.40 mg/dL 0.20-1.00 [facility] Work Phone: Comment on above: For patients on eltr ombopag therapy, use of Dimension [place] TBIL is not recommended. Chloride [Moles/Vol] 105 mmol/L 98-107 [facility] Work Phone: Eosinophils/100 WBC (Bld) 3.8 % 0-5 [facility] Work Phone: [phone] Glucose [Mass/Vol] 114 mg/dL 74-106 [facility] Work Phone: Comment on above: Fasting Glucose resu lt from 100 to 125 mg/dL suggests IMPAIRED HOMEOSTASIS per A.D.A. criteria. Neutrophils (Bld) [#/Vol] 5.0 10*3/uL 2.0-7.7 [facility] Work Phone: Neutrophils/100 WBC (Bld) 65.3 % 47-70 [facility] Work Phone: [phone] Potassium [Moles/Vol] 4.5 mmol/L 3.5-5.1 [facility] Work Phone: Comment on above: Slight Hemolysis, Re sult may be falsely increased. Protein [Mass/Vol] 6.5 g/dL 6.4-8.2 [facility] Work Phone: [phone] Sodium [Moles/Vol] 136 mmol/L 136-145 [facility] Work Phone: [phone] WBC (Bld) [#/Vol] 7.6 10*3/uL 4.4-11.0 [facility] Work Phone: [phone] Blood erythrocytes count (nu mber/volume)on 12-23-2021 RBC (Bld) [#/Vol] 3.51 10*6/uL 4.2-5.4 [facility] Work Phone: [phone] Blood hemoglobin measurement (mass/volume)on 12-23-2021 Hemoglobin (Bld) [Mass/Vol] 10.4 g/dL 12.0-15.0 [facility] Work Phone: Blood lymphocytes/100 leukoc yteson 12-23-2021 Lymphocytes/100 WBC (Bld) 18.8 % 19-41 [facility] Work Phone: Blood monocytes/100 leukocyt eson 12-23-2021 Monocytes/100 WBC (Bld) 10.9 % 0-10 [facility] Work Phone: Blood platelet mean volumeon 12-23-2021 Platelet mean volume (Bld) [Entitic vol] 10.4 fL 6.2-12.0 [facility] Work Phone: Determination of erythrocyte mean corpuscular volume (MCV)on 12-23-2021 MCV (RBC) [Entitic vol] 93.7 fL 81-99 [facility] Work Phone: Hematocrit Auto (Bld) [Volum e fraction]on 12-23-2021 Hematocrit (Bld) [Volume fraction] 32.9 % 37-47 [facility] Work Phone: Laboratory - Chemistry and C hemistry - challengeon 12-23-2021 ALP [Catalytic activity/Vol] 67 U/L 45-117 [facility] Work Phone: ALT [Catalytic activity/Vol] 21 U/L 13-56 [facility] Work Phone: CO2 [Moles/Vol] 23.0 mmol/L 21.0-32.0 [facility] Work Phone: Globulin (S) [Mass/Vol] 3.8 g/dL 2.2-4.2 [facility] Work Phone: Urea nitrogen/Creatinine [Mass ratio] 20.0 mg/mg 10-20 [facility] Work Phone: Laboratory - Hematology and Cell countson 12-23-2021 Erythrocyte distribution width (RBC) [Entitic vol] 57.0 fL 35.1-43.9 [facility] Work Phone: Erythrocyte distribution width (RBC) [Ratio] 16.6 % 11.6-14.6 [facility] Work Phone: [phone] Immature granulocytes/100 WBC (Bld) 0.400 % 0.0-0.9 [facility] Work Phone: [phone] Comment on above: IG% - Immature Granu locytes (promyelocytes, myelocytes and metamyelocytes) > 1% indicates that a LEFT SHIFT is Present. MCH (RBC) [Entitic mass] 29.6 pg 27.0-32.0 [facility] Work Phone: [phone] Nucleated RBC/100 WBC (Bld) [Ratio] 0 % 0-5 [facility] Work Phone: [phone] MCHC Auto (RBC) [Mass/Vol]on 12-23-2021 MCHC (RBC) [Mass/Vol] 31.6 g/dL 32-36 [facility] Work Phone: No Panel Informationon 12-23 Estimated GFR (MDRD) Amer 87 mL/min >60 [facility] Work Phone: Comment on above: GFR Calc Estimated GFR (MDRD) Non-Af Amer 72 mL/min >60 [facility] Work Phone: Comment on above: Non- GFR Calc Thyroid Stimulating Hormone (TSH) 7.57 uIU/mL 0.358-3.74 [facility] Work Phone: [phone] Platelets bldon 12-23-2021 Platelets (Bld) [#/Vol] 465 10*3/uL 150-450 [facility] Work Phone: [phone] Serum or plasma albumin bryan urement (mass/volume)on 12-23-2021 Albumin [Mass/Vol] 2.7 g/dL 3.2-5.0 [facility] Work Phone: [phone] Serum or plasma albumin/glob ulin mass ratioon 12-23-2021 Albumin/Globulin [Mass ratio] 0.7 {ratio} 0.9-2.4 [facility] Work Phone: [phone] Serum or plasma calcium bryan urement (mass/volume)on 12-23-2021 Calcium [Mass/Vol] 8.8 mg/dL 8.5-10.1 [facility] Work Phone: [phone] Serum or plasma creatinine m easurement (mass/volume)on 12-23-2021 Creatinine [Mass/Vol] 0.80 mg/dL 0.55-1.02 [facility] Work Phone: [phone] Comment on above: The validity of the calculated GFR & GFRAA in patients over 70 years has not been determined. Clinical correlation is essential. Serum or plasma urea nitroge n measurement (mass/volume)on 12-23-2021 Urea nitrogen [Mass/Vol] 16 mg/dL 7-18 [facility] Work Phone: [phone] Thin prep Papanicolaou smear with manual screeningon 12-23-2021 Thin prep Papanicolaou smear with manual screening 23 U/L 15-37 [facility] Work Phone: [phone] Comment on above: Slight Hemolysis, Re sult may be falsely increased. Thin prep Papanicolaou smear with manual screening 8 5-15 [facility] Work Phone: [phone] Absolute lymphocyte counton 10-13-2021 Lymphocytes Auto (Unsp spec) [#/Vol] 1.19 10*3/uL 0.83-4.51 [facility] Work Phone: [phone] Bacteria identified Anaer cx Nom (Unsp spec)on 10-13-2021 Anaerobic Culture Anaerobic cocci [facility] Work Phone: [phone] Bacteria identified Cx Nom ( Wound)on 10-13-2021 Wound Culture Meth. resistant Staph. aureus [facility] Work Phone: [phone] Wound Culture Corynebacterium amycolatum [facility] Work Phone: [phone] Basophil percentageon 2021 Basophils/100 WBC (Bld) 1.0 % 0-1 [facility] Work Phone: [phone] Bilirubin [Mass/Vol] 0.70 mg/dL 0.20-1.00 [facility] Work Phone: Comment on above: For patients on eltr ombopag therapy, use of Dimension [place] TBIL is not recommended. Chloride [Moles/Vol] 105 mmol/L 98-107 [facility] Work Phone: Eosinophils/100 WBC (Bld) 5.8 % 0-5 [facility] Work Phone: Glucose [Mass/Vol] 127 mg/dL 74-106 [facility] Work Phone: Comment on above: Fasting Glucose resu lt greater than or equal to 126 mg/dL suggests DIABETES MELLITUS per A.D.A. criteria. Neutrophils (Bld) [#/Vol] 3.9 10*3/uL 2.0-7.7 [facility] Work Phone: Neutrophils/100 WBC (Bld) 63.0 % 47-70 [facility] Work Phone: Potassium [Moles/Vol] 3.3 mmol/L 3.5-5.1 [facility] Work Phone: Protein [Mass/Vol] 6.7 g/dL 6.4-8.2 [facility] Work Phone: Sodium [Moles/Vol] 139 mmol/L 136-145 [facility] Work Phone: WBC (Bld) [#/Vol] 6.2 10*3/uL 4.4-11.0 [facility] Work Phone: Blood erythrocytes count (nu mber/volume)on 10-13-2021 RBC (Bld) [#/Vol] 3.71 10*6/uL 4.2-5.4 [facility] Work Phone: Blood hemoglobin measurement (mass/volume)on 10-13-2021 Hemoglobin (Bld) [Mass/Vol] 10.5 g/dL 12.0-15.0 [facility] Work Phone: Blood lymphocytes/100 leukoc yteson 10-13-2021 Lymphocytes/100 WBC (Bld) 19.1 % 19-41 [facility] Work Phone: Blood monocytes/100 leukocyt eson 10-13-2021 Monocytes/100 WBC (Bld) 10.6 % 0-10 [facility] Work Phone: [phone] Blood platelet mean volumeon 10-13-2021 Platelet mean volume (Bld) [Entitic vol] 10.0 fL 6.2-12.0 [facility] Work Phone: [phone] Determination of erythrocyte mean corpuscular volume (MCV)on 10-13-2021 MCV (RBC) [Entitic vol] 92.2 fL 81-99 [facility] Work Phone: Gram stain for investigation of transfusion reactionon 10-13-2021 Microscopic observation Gram stain Nom (Unsp spec) [facility] Work Phone: [phone] Hematocrit Auto (Bld) [Volum e fraction]on 10-13-2021 Hematocrit (Bld) [Volume fraction] 34.2 % 37-47 [facility] Work Phone: Laboratory - Chemistry and C hemistry - challengeon 10-13-2021 ALP [Catalytic activity/Vol] 69 U/L 45-117 [facility] Work Phone: ALT [Catalytic activity/Vol] 17 U/L 13-56 [facility] Work Phone: [phone] CO2 [Moles/Vol] 28.0 mmol/L 21.0-32.0 [facility] Work Phone: [phone] Globulin (S) [Mass/Vol] 4.0 g/dL 2.2-4.2 [facility] Work Phone: [phone] Urea nitrogen/Creatinine [Mass ratio] 19.2 mg/mg 10-20 [facility] Work Phone: [phone] Laboratory - Hematology and Cell countson 10-13-2021 Erythrocyte distribution width (RBC) [Entitic vol] 54.1 fL 35.1-43.9 [facility] Work Phone: [phone] Erythrocyte distribution width (RBC) [Ratio] 16.0 % 11.6-14.6 [facility] Work Phone: [phone] Immature granulocytes/100 WBC (Bld) 0.500 % 0.0-0.9 [facility] Work Phone: [phone] Comment on above: IG% - Immature Granu locytes (promyelocytes, myelocytes and metamyelocytes) > 1% indicates that a LEFT SHIFT is Present. MCH (RBC) [Entitic mass] 28.3 pg 27.0-32.0 [facility] Work Phone: [phone] Nucleated RBC/100 WBC (Bld) [Ratio] 0 % 0-5 [facility] Work Phone: [phone] MCHC Auto (RBC) [Mass/Vol]on 10-13-2021 MCHC (RBC) [Mass/Vol] 30.7 g/dL 32-36 [facility] Work Phone: No Panel Informationon 10-13 Estimated GFR (MDRD) Amer 97 mL/min >60 [facility] Work Phone: [phone] Comment on above: GFR Calc Estimated GFR (MDRD) Non-Af Amer 80 mL/min >60 [facility] Work Phone: [phone] Comment on above: Non- GFR Calc Thyroid Stimulating Hormone (TSH) 10.50 uIU/mL 0.358-3.74 [facility] Work Phone: Platelets bldon 10-13-2021 Platelets (Bld) [#/Vol] 474 10*3/uL 150-450 [facility] Work Phone: [phone] Serum or plasma albumin bryan urement (mass/volume)on 10-13-2021 Albumin [Mass/Vol] 2.7 g/dL 3.2-5.0 [facility] Work Phone: [phone] Serum or plasma albumin/glob ulin mass ratioon 10-13-2021 Albumin/Globulin [Mass ratio] 0.7 {ratio} 0.9-2.4 [facility] Work Phone: [phone] Serum or plasma calcium bryan urement (mass/volume)on 10-13-2021 Calcium [Mass/Vol] 9.0 mg/dL 8.5-10.1 [facility] Work Phone: Serum or plasma creatinine m easurement (mass/volume)on 10-13-2021 Creatinine [Mass/Vol] 0.73 mg/dL 0.55-1.02 [facility] Work Phone: Comment on above: The validity of the calculated GFR & GFRAA in patients over 70 years has not been determined. Clinical correlation is essential. Serum or plasma urea nitroge n measurement (mass/volume)on 10-13-2021 Urea nitrogen [Mass/Vol] 14 mg/dL 7-18 [facility] Work Phone: Thin prep Papanicolaou smear with manual screeningon 10-13-2021 Thin prep Papanicolaou smear with manual screening 22 U/L 15-37 [facility] Work Phone: Thin prep Papanicolaou smear with manual screening 6 5-15 [facility] Work Phone: [phone] Laboratory - Coagulationon 0 09-29-2021 INR Coag (Bld) [Relative time] 1.1 {INR} [facility] Work Phone: Comment on above: Critical Value > 4.0 Whole blood prothrombin time on 09-29-2021 PT Coag (Bld) [Time] 13.2 s 11.7-14.9 [facility] Work Phone: Basophil percentageon 2021 Basophil percentage 0-5 SEEN /hpf 0-5 [facility] Work Phone: Bilirubin Test strip Ql (U)o n 09-25-2021 Bilirubin Ql (U) Negative Negative [facility] Work Phone: [phone] Culture, urineon 09-25-2021 Bacteria identified Cx Nom (U) Escherichia coli [facility] Work Phone: Ketones Test strip Ql (U)on 09-25-2021 Ketones Ql (U) 5 mg/dl Negative [facility] Work Phone: [phone] Mucus LM Ql (Urine sed)on Mucus Ql (Urine sed) 0 SEEN /hpf [facility] Work Phone: Nitrite Test strip Ql (U)on 09-25-2021 Nitrite Ql (U) Positive Negative [facility] Work Phone: Protein Test strip Ql (U)on 09-25-2021 Protein Ql (U) 30 mg/dl Negative [facility] Work Phone: Squamous epithelial cells de tection in urine sediment by light microscopyon 09-25-2021 Epithelial cells.squamous LM Ql (Urine sed) 5-10 SEEN /hpf 5-10 [facility] Work Phone: Urine blood detectionon 09-12 RBC Ql (U) 25 /ul Negative [facility] Work Phone: RBC Ql (U) 0 SEEN /hpf 0-5 [facility] Work Phone: Urine clarityon 09-25-2021 Clarity (U) Turbid Clear [facility] Work Phone: Urine color determinationon 09-25-2021 Color (U) Yellow Yellow [facility] Work Phone: Urine glucose detectionon Glucose Ql (U) Normal mg/dl Normal [facility] Work Phone: Urine leukocyte esterase det ection by dipstickon 09-25-2021 Leukocyte esterase Test strip Ql (U) 100 /ul Negative [facility] Work Phone: Urine pHon 09-25-2021 pH (U) 5.0 [pH] 5.0 - 8.0 [facility] Work Phone: Urine sediment bacteria coun t by microscopy (number/high power field)on 09-25-2021 Bacteria LM.HPF (Urine sed) [#/Area] 4 /[HPF] None Seen [facility] Work Phone: Urine specific gravity measu rementon 09-25-2021 Specific gravity (U) [Rel density] 1.025 1.002-1.030 [facility] Work Phone: Urobilinogen Auto test strip Ql (U)on 09-25-2021 Urobilinogen Ql (U) Normal mg/dl Normal [facility] Work Phone: Absolute lymphocyte counton 08-17-2021 Lymphocytes Auto (Unsp spec) [#/Vol] 1.74 10*3/uL 0.83-4.51 [facility] Work Phone: Basophil percentageon 2021 Basophils/100 WBC (Bld) 0.6 % 0-1 [facility] Work Phone: Bilirubin [Mass/Vol] 0.40 mg/dL 0.20-1.00 [facility] Work Phone: Comment on above: For patients on eltr ombopag therapy, use of Dimension [place] TBIL is not recommended. Chloride [Moles/Vol] 108 mmol/L 98-107 [facility] Work Phone: Eosinophils/100 WBC (Bld) 4.9 % 0-5 [facility] Work Phone: Glucose [Mass/Vol] 117 mg/dL 74-106 [facility] Work Phone: Comment on above: Fasting Glucose resu lt from 100 to 125 mg/dL suggests IMPAIRED HOMEOSTASIS per A.D.A. criteria. Neutrophils (Bld) [#/Vol] 4.4 10*3/uL 2.0-7.7 [facility] Work Phone: Neutrophils/100 WBC (Bld) 61.6 % 47-70 [facility] Work Phone: Potassium [Moles/Vol] 3.5 mmol/L 3.5-5.1 [facility] Work Phone: Protein [Mass/Vol] 6.2 g/dL 6.4-8.2 [facility] Work Phone: Sodium [Moles/Vol] 139 mmol/L 136-145 [facility] Work Phone: WBC (Bld) [#/Vol] 7.2 10*3/uL 4.4-11.0 [facility] Work Phone: Blood erythrocytes count (nu mber/volume)on 08-17-2021 RBC (Bld) [#/Vol] 3.52 10*6/uL 4.2-5.4 [facility] [place] Work Phone: Blood hemoglobin measurement (mass/volume)on 08-17-2021 Hemoglobin (Bld) [Mass/Vol] 10.5 g/dL 12.0-15.0 [facility] Work Phone: [phone] Blood lymphocytes/100 leukoc yteson 08-17-2021 Lymphocytes/100 WBC (Bld) 24.2 % 19-41 [facility] Work Phone: [phone] Blood monocytes/100 leukocyt eson 08-17-2021 Monocytes/100 WBC (Bld) 8.3 % 0-10 [facility] Work Phone: [phone] Blood platelet mean volumeon 08-17-2021 Platelet mean volume (Bld) [Entitic vol] 10.7 fL 6.2-12.0 [facility] Work Phone: Determination of erythrocyte mean corpuscular volume (MCV)on 08-17-2021 MCV (RBC) [Entitic vol] 95.7 fL 81-99 [facility] Work Phone: [phone] Hematocrit Auto (Bld) [Volum e fraction]on 08-17-2021 Hematocrit (Bld) [Volume fraction] 33.7 % 37-47 [facility] Work Phone: [phone] Laboratory - Chemistry and C hemistry - challengeon 08-17-2021 ALP [Catalytic activity/Vol] 77 U/L 45-117 [facility] Work Phone: [phone] ALT [Catalytic activity/Vol] 16 U/L 13-56 [facility] Work Phone: [phone] CO2 [Moles/Vol] 25.0 mmol/L 21.0-32.0 [facility] Work Phone: [phone] Globulin (S) [Mass/Vol] 3.5 g/dL 2.2-4.2 [facility] Work Phone: [phone] Urea nitrogen/Creatinine [Mass ratio] 16.9 mg/mg 10-20 [facility] Work Phone: [phone] Laboratory - Hematology and Cell countson 08-17-2021 Erythrocyte distribution width (RBC) [Entitic vol] 49.1 fL 35.1-43.9 [facility] Work Phone: [phone] Erythrocyte distribution width (RBC) [Ratio] 14.2 % 11.6-14.6 [facility] Work Phone: [phone] Immature granulocytes/100 WBC (Bld) 0.400 % 0.0-0.9 [facility] Work Phone: [phone] Comment on above: IG% - Immature Granu locytes (promyelocytes, myelocytes and metamyelocytes) > 1% indicates that a LEFT SHIFT is Present. MCH (RBC) [Entitic mass] 29.8 pg 27.0-32.0 [facility] Work Phone: [phone] Nucleated RBC/100 WBC (Bld) [Ratio] 0 % 0-5 [facility] Work Phone: [phone] MCHC Auto (RBC) [Mass/Vol]on 08-17-2021 MCHC (RBC) [Mass/Vol] 31.2 g/dL 32-36 [facility] Work Phone: No Panel Informationon 08-17 Estimated GFR (MDRD) Amer 78 mL/min >60 [facility] Work Phone: [phone] Comment on above: GFR Calc Estimated GFR (MDRD) Non-Af Amer 64 mL/min >60 [facility] Work Phone: [phone] Comment on above: Non- GFR Calc Platelets bldon 08-17-2021 Platelets (Bld) [#/Vol] 409 10*3/uL 150-450 [facility] Work Phone: [phone] Serum or plasma albumin bryan urement (mass/volume)on 08-17-2021 Albumin [Mass/Vol] 2.7 g/dL 3.2-5.0 [facility] Work Phone: Serum or plasma albumin/glob ulin mass ratioon 08-17-2021 Albumin/Globulin [Mass ratio] 0.8 {ratio} 0.9-2.4 [facility] Work Phone: [phone] Serum or plasma calcium bryan urement (mass/volume)on 08-17-2021 Calcium [Mass/Vol] 8.1 mg/dL 8.5-10.1 [facility] Work Phone: [phone] Serum or plasma creatinine m easurement (mass/volume)on 08-17-2021 Creatinine [Mass/Vol] 0.88 mg/dL 0.55-1.02 [facility] Work Phone: [phone] Comment on above: The validity of the calculated GFR & GFRAA in patients over 70 years has not been determined. Clinical correlation is essential. Serum or plasma urea nitroge n measurement (mass/volume)on 08-17-2021 Urea nitrogen [Mass/Vol] 15 mg/dL 7-18 [facility] Work Phone: Thin prep Papanicolaou smear with manual screeningon 08-17-2021 Thin prep Papanicolaou smear with manual screening 18 U/L 15-37 [facility] Work Phone: Thin prep Papanicolaou smear with manual screening 6 5-15 [facility] Work Phone: Basophil percentageon 2021 Chloride [Moles/Vol] 106 mmol/L 98-107 [facility] Work Phone: Glucose [Mass/Vol] 120 mg/dL 74-106 [facility] Work Phone: Comment on above: Fasting Glucose resu lt from 100 to 125 mg/dL suggests IMPAIRED HOMEOSTASIS per A.D.A. criteria. Potassium [Moles/Vol] 4.0 mmol/L 3.5-5.1 [facility] Work Phone: Sodium [Moles/Vol] 139 mmol/L 136-145 [facility] Work Phone: [phone] WBC (Bld) [#/Vol] 6.9 10*3/uL 4.4-11.0 [facility] Work Phone: Blood erythrocytes count (nu mber/volume)on 08-10-2021 RBC (Bld) [#/Vol] 3.46 10*6/uL 4.2-5.4 [facility] Work Phone: [phone] Blood hemoglobin measurement (mass/volume)on 08-10-2021 Hemoglobin (Bld) [Mass/Vol] 10.8 g/dL 12.0-15.0 [facility] Work Phone: [phone] Blood platelet mean volumeon 08-10-2021 Platelet mean volume (Bld) [Entitic vol] 10.4 fL 6.2-12.0 [facility] Work Phone: [phone] Determination of erythrocyte mean corpuscular volume (MCV)on 08-10-2021 MCV (RBC) [Entitic vol] 92.8 fL 81-99 [facility] Work Phone: [phone] Hematocrit Auto (Bld) [Volum e fraction]on 08-10-2021 Hematocrit (Bld) [Volume fraction] 32.1 % 37-47 [facility] Work Phone: [phone] Laboratory - Chemistry and C hemistry - challengeon 08-10-2021 CO2 [Moles/Vol] 26.0 mmol/L 21.0-32.0 [facility] Work Phone: [phone] Urea nitrogen/Creatinine [Mass ratio] 13.1 mg/mg 10-20 [facility] Work Phone: [phone] Laboratory - Hematology and Cell countson 08-10-2021 Erythrocyte distribution width (RBC) [Entitic vol] 46.3 fL 35.1-43.9 [facility] Work Phone: [phone] Erythrocyte distribution width (RBC) [Ratio] 13.8 % 11.6-14.6 [facility] Work Phone: [phone] MCH (RBC) [Entitic mass] 31.2 pg 27.0-32.0 [facility] Work Phone: [phone] MCHC Auto (RBC) [Mass/Vol]on 08-10-2021 MCHC (RBC) [Mass/Vol] 33.6 g/dL 32-36 [facility] Work Phone: [phone] No Panel Informationon 08-10 Estimated GFR (MDRD) Amer 75 mL/min >60 [facility] Work Phone: [phone] Comment on above: GFR Calc Estimated GFR (MDRD) Non-Af Amer 62 mL/min >60 [facility] Work Phone: [phone] Comment on above: Non- GFR Calc Platelets bldon 08-10-2021 Platelets (Bld) [#/Vol] 367 10*3/uL 150-450 [facility] Work Phone: [phone] Serum or plasma calcium bryan urement (mass/volume)on 08-10-2021 Calcium [Mass/Vol] 8.7 mg/dL 8.5-10.1 [facility] Work Phone: [phone] Serum or plasma creatinine m easurement (mass/volume)on 08-10-2021 Creatinine [Mass/Vol] 0.92 mg/dL 0.55-1.02 [facility] Work Phone: Comment on above: The validity of the calculated GFR & GFRAA in patients over 70 years has not been determined. Clinical correlation is essential. Serum or plasma urea nitroge n measurement (mass/volume)on 08-10-2021 Urea nitrogen [Mass/Vol] 12 mg/dL 7-18 [facility] Work Phone: [phone] Thin prep Papanicolaou smear with manual screeningon 08-10-2021 Thin prep Papanicolaou smear with manual screening 7 5-15 [facility] Work Phone: [phone] Absolute lymphocyte counton 07-26-2021 Lymphocytes Auto (Unsp spec) [#/Vol] 1.87 10*3/uL 0.83-4.51 [facility] Work Phone: Basophil percentageon 2021 Basophils/100 WBC (Bld) 0.5 % 0-1 [facility] Work Phone: Chloride [Moles/Vol] 109 mmol/L 98-107 [facility] Work Phone: Eosinophils/100 WBC (Bld) 6.7 % 0-5 [facility] Work Phone: Glucose [Mass/Vol] 92 mg/dL 74-106 [facility] Work Phone: Neutrophils (Bld) [#/Vol] 4.7 10*3/uL 2.0-7.7 [facility] Work Phone: Neutrophils/100 WBC (Bld) 60.1 % 47-70 [facility] Work Phone: Potassium [Moles/Vol] 3.8 mmol/L 3.5-5.1 [facility] Work Phone: Comment on above: Slight Hemolysis, Re sult may be falsely increased. Sodium [Moles/Vol] 140 mmol/L 136-145 [facility] Work Phone: WBC (Bld) [#/Vol] 7.8 10*3/uL 4.4-11.0 [facility] Work Phone: Blood erythrocytes count (nu mber/volume)on 07-26-2021 RBC (Bld) [#/Vol] 3.28 10*6/uL 4.2-5.4 [facility] Work Phone: Blood hemoglobin measurement (mass/volume)on 07-26-2021 Hemoglobin (Bld) [Mass/Vol] 10.2 g/dL 12.0-15.0 [facility] Work Phone: Blood lymphocytes/100 leukoc yteson 07-26-2021 Lymphocytes/100 WBC (Bld) 23.9 % 19-41 [facility] Work Phone: Blood monocytes/100 leukocyt eson 07-26-2021 Monocytes/100 WBC (Bld) 8.5 % 0-10 [facility] Work Phone: Blood platelet mean volumeon 07-26-2021 Platelet mean volume (Bld) [Entitic vol] 10.8 fL 6.2-12.0 [facility] Work Phone: [phone] Determination of erythrocyte mean corpuscular volume (MCV)on 07-26-2021 MCV (RBC) [Entitic vol] 94.2 fL 81-99 [facility] Work Phone: [phone] Hematocrit Auto (Bld) [Volum e fraction]on 07-26-2021 Hematocrit (Bld) [Volume fraction] 30.9 % 37-47 [facility] Work Phone: [phone] Laboratory - Chemistry and C hemistry - challengeon 07-26-2021 CO2 [Moles/Vol] 25.0 mmol/L 21.0-32.0 [facility] Work Phone: [phone] Magnesium [Mass/Vol] 2.0 mg/dL 1.6-2.6 [facility] Work Phone: [phone] Comment on above: Slight Hemolysis, Re sult may be falsely increased. Urea nitrogen/Creatinine [Mass ratio] 26.4 mg/mg 10-20 [facility] Work Phone: [phone] Laboratory - Hematology and Cell countson 07-26-2021 Erythrocyte distribution width (RBC) [Entitic vol] 44.9 fL 35.1-43.9 [facility] Work Phone: [phone] Erythrocyte distribution width (RBC) [Ratio] 13.0 % 11.6-14.6 [facility] Work Phone: [phone] Immature granulocytes/100 WBC (Bld) 0.300 % 0.0-0.9 [facility] Work Phone: [phone] Comment on above: IG% - Immature Granu locytes (promyelocytes, myelocytes and metamyelocytes) > 1% indicates that a LEFT SHIFT is Present. MCH (RBC) [Entitic mass] 31.1 pg 27.0-32.0 [facility] Work Phone: [phone] Nucleated RBC/100 WBC (Bld) [Ratio] 0 % 0-5 [facility] Work Phone: [phone] MCHC Auto (RBC) [Mass/Vol]on 07-26-2021 MCHC (RBC) [Mass/Vol] 33.0 g/dL 32-36 [facility] Work Phone: No Panel Informationon 07-26 Estimated GFR (MDRD) Amer 84 mL/min >60 [facility] Work Phone: Comment on above: GFR Calc Estimated GFR (MDRD) Non-Af Amer 69 mL/min >60 [facility] Work Phone: Comment on above: Non- GFR Calc Platelets bldon 07-26-2021 Platelets (Bld) [#/Vol] 400 10*3/uL 150-450 [facility] Work Phone: [phone] Serum or plasma calcium bryan urement (mass/volume)on 07-26-2021 Calcium [Mass/Vol] 8.5 mg/dL 8.5-10.1 [facility] Work Phone: [phone] Serum or plasma creatinine m easurement (mass/volume)on 07-26-2021 Creatinine [Mass/Vol] 0.83 mg/dL 0.55-1.02 [facility] Work Phone: [phone] Comment on above: The validity of the calculated GFR & GFRAA in patients over 70 years has not been determined. Clinical correlation is essential. Serum or plasma urea nitroge n measurement (mass/volume)on 07-26-2021 Urea nitrogen [Mass/Vol] 22 mg/dL 7-18 [facility] Work Phone: [phone] Thin prep Papanicolaou smear with manual screeningon 07-26-2021 Thin prep Papanicolaou smear with manual screening 6 5-15 [facility] Work Phone: [phone] Absolute lymphocyte counton 07-19-2021 Lymphocytes Auto (Unsp spec) [#/Vol] 1.95 10*3/uL 0.83-4.51 [facility] Work Phone: [phone] Basophil percentageon 2021 Basophils/100 WBC (Bld) 0.7 % 0-1 [facility] Work Phone: Chloride [Moles/Vol] 109 mmol/L 98-107 [facility] Work Phone: Cholesterol [Mass/Vol] 131 mg/dL <200 [facility] Work Phone: Comment on above: <200 mg/dL Desirable 200-240 mg/dL Borderline >240 mg/dL High Risk Eosinophils/100 WBC (Bld) 5.1 % 0-5 [facility] Work Phone: Glucose [Mass/Vol] 101 mg/dL 74-106 [facility] Work Phone: Comment on above: Fasting Glucose resu lt from 100 to 125 mg/dL suggests IMPAIRED HOMEOSTASIS per A.D.A. criteria. Neutrophils (Bld) [#/Vol] 5.1 10*3/uL 2.0-7.7 [facility] Work Phone: [phone] Neutrophils/100 WBC (Bld) 60.5 % 47-70 [facility] Work Phone: [phone] Potassium [Moles/Vol] 4.0 mmol/L 3.5-5.1 [facility] Work Phone: [phone] Sodium [Moles/Vol] 142 mmol/L 136-145 [facility] Work Phone: Triglyceride [Mass/Vol] 88 mg/dL [facility] Work Phone: [phone] Comment on above: The drugs N-Acetylcy steine and Metamizole may falsely depress this assay.Serum Triglycerides Reference Interval Normal <150 mg/dL Borderline high 150 - 199 mg/dL High 200 - 499 mg/dL Very High > or = 500 mg/dL WBC (Bld) [#/Vol] 8.5 10*3/uL 4.4-11.0 [facility] Work Phone: Blood erythrocytes count (nu mber/volume)on 07-19-2021 RBC (Bld) [#/Vol] 3.53 10*6/uL 4.2-5.4 [facility] Work Phone: [phone] Blood hemoglobin measurement (mass/volume)on 07-19-2021 Hemoglobin (Bld) [Mass/Vol] 11.1 g/dL 12.0-15.0 [facility] Work Phone: Blood lymphocytes/100 leukoc yteson 07-19-2021 Lymphocytes/100 WBC (Bld) 23.0 % 19-41 [facility] Work Phone: Blood monocytes/100 leukocyt eson 07-19-2021 Monocytes/100 WBC (Bld) 10.5 % 0-10 [facility] Work Phone: Blood platelet mean volumeon 07-19-2021 Platelet mean volume (Bld) [Entitic vol] 10.5 fL 6.2-12.0 [facility] Work Phone: Determination of erythrocyte mean corpuscular volume (MCV)on 07-19-2021 MCV (RBC) [Entitic vol] 95.2 fL 81-99 [facility] Work Phone: Hematocrit Auto (Bld) [Volum e fraction]on 07-19-2021 Hematocrit (Bld) [Volume fraction] 33.6 % 37-47 [facility] Work Phone: Laboratory - Chemistry and C hemistry - challengeon 07-19-2021 CO2 [Moles/Vol] 29.0 mmol/L 21.0-32.0 [facility] Work Phone: Magnesium [Mass/Vol] 2.4 mg/dL 1.6-2.6 [facility] Work Phone: Urea nitrogen/Creatinine [Mass ratio] 31.5 mg/mg 10-20 [facility] Work Phone: Laboratory - Hematology and Cell countson 07-19-2021 Erythrocyte distribution width (RBC) [Entitic vol] 46.6 fL 35.1-43.9 [facility] Work Phone: [phone] Erythrocyte distribution width (RBC) [Ratio] 13.4 % 11.6-14.6 [facility] Work Phone: Immature granulocytes/100 WBC (Bld) 0.200 % 0.0-0.9 [facility] Work Phone: Comment on above: IG% - Immature Granu locytes (promyelocytes, myelocytes and metamyelocytes) > 1% indicates that a LEFT SHIFT is Present. MCH (RBC) [Entitic mass] 31.4 pg 27.0-32.0 [facility] Work Phone: Nucleated RBC/100 WBC (Bld) [Ratio] 0 % 0-5 [facility] Work Phone: MCHC Auto (RBC) [Mass/Vol]on 07-19-2021 MCHC (RBC) [Mass/Vol] 33.0 g/dL 32-36 [facility] Work Phone: No Panel Informationon 07-19 Estimated GFR (MDRD) Amer 69 mL/min >60 [facility] Work Phone: Comment on above: GFR Calc Estimated GFR (MDRD) Non-Af Amer 57 mL/min >60 [facility] Work Phone: Comment on above: Non- GFR Calc Thyroid Stimulating Hormone (TSH) 1.68 uIU/mL 0.358-3.74 [facility] Work Phone: Platelets bldon 07-19-2021 Platelets (Bld) [#/Vol] 453 10*3/uL 150-450 [facility] Work Phone: Serum or plasma calcium bryan urement (mass/volume)on 07-19-2021 Calcium [Mass/Vol] 8.7 mg/dL 8.5-10.1 [facility] Work Phone: Serum or plasma cholesterol in HDL measurement (mass/volume)on 07-19-2021 Cholesterol in HDL [Mass/Vol] 34 mg/dL [facility] Work Phone: Comment on above: The drugs N-Acetylcy steine and Metamizole may falsely depress this assay. Reference Range HDL <40 mg/dL Low HDL Cholesterol HDL >or= 60 mg/dL High HDL Cholesterol Serum or plasma cholesterol in VLDL measurement (mass/volume)on 07-19-2021 Cholesterol in VLDL [Mass/Vol] 18 mg/dL 5-40 [facility] Work Phone: [phone] Serum or plasma creatinine m easurement (mass/volume)on 07-19-2021 Creatinine [Mass/Vol] 0.98 mg/dL 0.55-1.02 [facility] Work Phone: Comment on above: The validity of the calculated GFR & GFRAA in patients over 70 years has not been determined. Clinical correlation is essential. Serum or plasma low density lipoprotein (LDL) cholesterol measurement (mass/volume)on 07-19-2021 Cholesterol in LDL [Mass/Vol] 79 mg/dL 0-130 [facility] Work Phone: [phone] Serum or plasma urea nitroge n measurement (mass/volume)on 07-19-2021 Urea nitrogen [Mass/Vol] 31 mg/dL 7-18 [facility] Work Phone: [phone] Thin prep Papanicolaou smear with manual screeningon 07-19-2021 Thin prep Papanicolaou smear with manual screening 4 5-15 [facility] Work Phone: Whole blood hemoglobin A1c/t otal hemoglobin ratio (mass fraction)on 07-19-2021 HbA1c (Bld) [Mass fraction] 5.6 % 3.8-5.6 [facility] Work Phone: Comment on above: Normal < 5.7 % Predi abetic 5.7 - 6.4 % Diabetic >or= 6.5 % Please note range changes. Basophil percentageon 2021 Chloride [Moles/Vol] 107 mmol/L 98-107 [facility] Work Phone: [phone] Glucose [Mass/Vol] 97 mg/dL 74-106 [facility] Work Phone: [phone] Potassium [Moles/Vol] 4.4 mmol/L 3.5-5.1 [facility] Work Phone: Comment on above: Slight Hemolysis, Re sult may be falsely increased. Sodium [Moles/Vol] 138 mmol/L 136-145 [facility] Work Phone: [phone] WBC (Bld) [#/Vol] 7.6 10*3/uL 4.4-11.0 [facility] Work [facility]: [phone] Blood erythrocytes count (nu mber/volume)on 07-16-2021 RBC (Bld) [#/Vol] 3.44 10*6/uL 4.2-5.4 [facility] Work Phone: [phone] Blood hemoglobin measurement (mass/volume)on 07-16-2021 Hemoglobin (Bld) [Mass/Vol] 10.7 g/dL 12.0-15.0 [facility] Work Phone: [phone] Blood platelet mean volumeon 07-16-2021 Platelet mean volume (Bld) [Entitic vol] 10.3 fL 6.2-12.0 [facility] Work Phone: [phone] Determination of erythrocyte mean corpuscular volume (MCV)on 07-16-2021 MCV (RBC) [Entitic vol] 94.8 fL 81-99 [facility] Work Phone: [phone] Hematocrit Auto (Bld) [Volum e fraction]on 07-16-2021 Hematocrit (Bld) [Volume fraction] 32.6 % 37-47 [facility] Work Phone: [phone] Laboratory - Chemistry and C hemistry - challengeon 07-16-2021 CO2 [Moles/Vol] 28.0 mmol/L 21.0-32.0 [facility] Work Phone: [phone] Urea nitrogen/Creatinine [Mass ratio] 29.4 mg/mg 10-20 [facility] Work Phone: [phone] Laboratory - Hematology and Cell countson 07-16-2021 Erythrocyte distribution width (RBC) [Entitic vol] 46.0 fL 35.1-43.9 [facility] Work Phone: [phone] Erythrocyte distribution width (RBC) [Ratio] 13.3 % 11.6-14.6 [facility] Work Phone: [phone] MCH (RBC) [Entitic mass] 31.1 pg 27.0-32.0 [facility] Work Phone: MCHC Auto (RBC) [Mass/Vol]on 07-16-2021 MCHC (RBC) [Mass/Vol] 32.8 g/dL 32-36 [facility] Work Phone: No Panel Informationon 07-16 Estimated GFR (MDRD) Amer 69 mL/min >60 [facility] Work Phone: Comment on above: GFR Calc Estimated GFR (MDRD) Non-Af Amer 57 mL/min >60 [facility] Work Phone: Comment on above: Non- GFR Calc Platelets bldon 07-16-2021 Platelets (Bld) [#/Vol] 411 10*3/uL 150-450 [facility] Work Phone: Serum or plasma calcium bryan urement (mass/volume)on 07-16-2021 Calcium [Mass/Vol] 8.7 mg/dL 8.5-10.1 [facility] Work Phone: Serum or plasma creatinine m easurement (mass/volume)on 07-16-2021 Creatinine [Mass/Vol] 0.99 mg/dL 0.55-1.02 [facility] Work Phone: Comment on above: The validity of the calculated GFR & GFRAA in patients over 70 years has not been determined. Clinical correlation is essential. Serum or plasma urea nitroge n measurement (mass/volume)on 07-16-2021 Urea nitrogen [Mass/Vol] 29 mg/dL 7-18 [facility] Work Phone: [phone] Thin prep Papanicolaou smear with manual screeningon 07-16-2021 Thin prep Papanicolaou smear with manual screening 3 5-15 [facility] Work Phone: [phone] Absolute lymphocyte counton 07-15-2021 Lymphocytes Auto (Unsp spec) [#/Vol] 2.28 10*3/uL 0.83-4.51 [facility] Work Phone: [phone] Basophil percentageon 2021 Basophils/100 WBC (Bld) 0.6 % 0-1 [facility] Work Phone: Bilirubin [Mass/Vol] 0.40 mg/dL 0.20-1.00 [facility] Work Phone: Comment on above: For patients on eltr ombopag therapy, use of Dimension [place] TBIL is not recommended. Chloride [Moles/Vol] 107 mmol/L 98-107 [facility] Work Phone: Eosinophils/100 WBC (Bld) 6.2 % 0-5 [facility] Work Phone: Glucose [Mass/Vol] 100 mg/dL 74-106 [facility] Work Phone: Comment on above: Fasting Glucose resu lt from 100 to 125 mg/dL suggests IMPAIRED HOMEOSTASIS per A.D.A. criteria. Neutrophils (Bld) [#/Vol] 4.6 10*3/uL 2.0-7.7 [facility] Work Phone: Neutrophils/100 WBC (Bld) 56.6 % 47-70 [facility] Work Phone: Potassium [Moles/Vol] 4.3 mmol/L 3.5-5.1 [facility] Work Phone: Protein [Mass/Vol] 6.4 g/dL 6.4-8.2 [facility] Work Phone: Sodium [Moles/Vol] 139 mmol/L 136-145 [facility] Work Phone: WBC (Bld) [#/Vol] 8.2 10*3/uL 4.4-11.0 [facility] Work Phone: Blood erythrocytes count (nu mber/volume)on 07-15-2021 RBC (Bld) [#/Vol] 3.55 10*6/uL 4.2-5.4 [facility] Work Phone: Blood hemoglobin measurement (mass/volume)on 07-15-2021 Hemoglobin (Bld) [Mass/Vol] 11.1 g/dL 12.0-15.0 [facility] Work Phone: Blood lymphocytes/100 leukoc yteson 07-15-2021 Lymphocytes/100 WBC (Bld) 27.8 % 19-41 [facility] Work Phone: Blood monocytes/100 leukocyt eson 07-15-2021 Monocytes/100 WBC (Bld) 8.7 % 0-10 [facility] Work Phone: Blood platelet mean volumeon 07-15-2021 Platelet mean volume (Bld) [Entitic vol] 10.1 fL 6.2-12.0 [facility] Work Phone: Determination of erythrocyte mean corpuscular volume (MCV)on 07-15-2021 MCV (RBC) [Entitic vol] 93.0 fL 81-99 [facility] Work Phone: Hematocrit Auto (Bld) [Volum e fraction]on 07-15-2021 Hematocrit (Bld) [Volume fraction] 33.0 % 37-47 [facility] Work Phone: INR in Blood by Coagulation assayon 07-15-2021 INR Coag (Bld) [Relative time] 2.2 {INR} [facility] Work Phone: Laboratory - Chemistry and C hemistry - challengeon 07-15-2021 ALP [Catalytic activity/Vol] 63 U/L 45-117 [facility] Work Phone: ALT [Catalytic activity/Vol] 11 U/L 13-56 [facility] Work Phone: CO2 [Moles/Vol] 27.0 mmol/L 21.0-32.0 [facility] Work Phone: Globulin (S) [Mass/Vol] 3.7 g/dL 2.2-4.2 [facility] Work Phone: Urea nitrogen/Creatinine [Mass ratio] 30.4 mg/mg 10-20 [facility] Work Phone: Laboratory - Coagulationon 0 07-15-2021 PT Coag (PPP) [Time] 23.3 s 11.7-14.9 [facility] Work Phone: Laboratory - Hematology and Cell countson 07-15-2021 Erythrocyte distribution width (RBC) [Entitic vol] 45.5 fL 35.1-43.9 [facility] Work Phone: [phone] Erythrocyte distribution width (RBC) [Ratio] 13.2 % 11.6-14.6 [facility] Work Phone: [phone] Immature granulocytes/100 WBC (Bld) 0.100 % 0.0-0.9 [facility] Work Phone: [phone] Comment on above: IG% - Immature Granu locytes (promyelocytes, myelocytes and metamyelocytes) > 1% indicates that a LEFT SHIFT is Present. MCH (RBC) [Entitic mass] 31.3 pg 27.0-32.0 [facility] Work Phone: [phone] Nucleated RBC/100 WBC (Bld) [Ratio] 0 % 0-5 [facility] Work Phone: MCHC Auto (RBC) [Mass/Vol]on 07-15-2021 MCHC (RBC) [Mass/Vol] 33.6 g/dL 32-36 [facility] Work Phone: No Panel Informationon 07-15 Estimated Creatinine Clearance Calc 29.87 ml/min [facility] Work Phone: Estimated GFR (MDRD) Amer 66 mL/min >60 [facility] Work Phone: [phone] Comment on above: GFR Calc Estimated GFR (MDRD) Non-Af Amer 55 mL/min >60 [facility] Work Phone: [phone] Comment on above: Non- GFR Calc Platelets bldon 07-15-2021 Platelets (Bld) [#/Vol] 439 10*3/uL 150-450 [facility] Work Phone: Serum or plasma albumin bryan urement (mass/volume)on 07-15-2021 Albumin [Mass/Vol] 2.7 g/dL 3.2-5.0 [facility] Work Phone: Serum or plasma albumin/glob ulin mass ratioon 07-15-2021 Albumin/Globulin [Mass ratio] 0.7 {ratio} 0.9-2.4 [facility] Work Phone: Serum or plasma calcium bryan urement (mass/volume)on 07-15-2021 Calcium [Mass/Vol] 8.7 mg/dL 8.5-10.1 [facility] Work Phone: [phone] Serum or plasma creatinine m easurement (mass/volume)on 07-15-2021 Creatinine [Mass/Vol] 1.02 mg/dL 0.55-1.02 [facility] Work Phone: Comment on above: The validity of the calculated GFR & GFRAA in patients over 70 years has not been determined. Clinical correlation is essential. Serum or plasma urea nitroge n measurement (mass/volume)on 07-15-2021 Urea nitrogen [Mass/Vol] 31 mg/dL 7-18 [facility] Work Phone: Thin prep Papanicolaou smear with manual screeningon 07-15-2021 Thin prep Papanicolaou smear with manual screening 12 U/L 15-37 [facility] Work Phone: Thin prep Papanicolaou smear with manual screening 5 5-15 [facility] Work Phone: Basophil percentageon 2021 Ammonia (P) [Moles/Vol] 11.0 umol/L 11-32 [facility] Work Phone: [phone] Cholesterol [Mass/Vol] 172 mg/dL <200 [facility] Work Phone: Comment on above: <200 mg/dL Desirable 200-240 mg/dL Borderline >240 mg/dL High Risk Triglyceride [Mass/Vol] 140 mg/dL [facility] Work Phone: Comment on above: The drugs N-Acetylcy steine and Metamizole may falsely depress this assay.Serum Triglycerides Reference Interval Normal <150 mg/dL Borderline high 150 - 199 mg/dL High 200 - 499 mg/dL Very High > or = 500 mg/dL Laboratory - Chemistry and C hemistry - challengeon 07-13-2021 Cobalamin (Vitamin B12) [Mass/Vol] 257 pg/mL 211-911 [facility] Work Phone: Laboratory - Microbiology an d Antimicrobial susceptibilityon 07-13-2021 Bacteria identified Cx Nom (Bld) No growth in 5 days. [facility] Work Phone: No Panel Informationon 07-13 Thyroid Stimulating Hormone (TSH) 3.04 uIU/mL 0.358-3.74 [facility] Work Phone: Serum or plasma cholesterol in HDL measurement (mass/volume)on 07-13-2021 Cholesterol in HDL [Mass/Vol] 31 mg/dL [facility] Work Phone: Comment on above: The drugs N-Acetylcy steine and Metamizole may falsely depress this assay. Reference Range HDL <40 mg/dL Low HDL Cholesterol HDL >or= 60 mg/dL High HDL Cholesterol Serum or plasma cholesterol in VLDL measurement (mass/volume)on 07-13-2021 Cholesterol in VLDL [Mass/Vol] 28 mg/dL 5-40 [facility] Work Phone: Serum or plasma low density lipoprotein (LDL) cholesterol measurement (mass/volume)on 07-13-2021 Cholesterol in LDL [Mass/Vol] 113 mg/dL 0-130 [facility] Work Phone: Whole blood hemoglobin A1c/t otal hemoglobin ratio (mass fraction)on 07-13-2021 HbA1c (Bld) [Mass fraction] 5.5 % 3.8-5.6 [facility] Work Phone: Comment on above: Normal < 5.7 % Predi abetic 5.7 - 6.4 % Diabetic >or= 6.5 % Please note range changes. INR in Blood by Coagulation assayon 07-12-2021 INR Coag (Bld) [Relative time] 2.1 {INR} [facility] Work Phone: Laboratory - Coagulationon 0 07-12-2021 aPTT Coag (Bld) [Time] 44.1 s 24.1-36.2 [facility] Work Phone: PT Coag (PPP) [Time] 23.1 s 11.7-14.9 [facility] Work Phone: No Panel Informationon 07-12 Troponin I High Sensitivity 8 pg/mL 3.0-54.0 [facility] Work Phone: Comment on above: Please Note: New Yohana t Units and Gender Specific Reference Ranges. For more information see Policy Stat Procedure [place] High Sensitivity Troponin (TNIH) and attachments. Absolute lymphocyte counton 07-11-2021 Lymphocytes Auto (Unsp spec) [#/Vol] 1.74 10*3/uL 0.83-4.51 [facility] Work Phone: Basophil percentageon 2021 Basophils/100 WBC (Bld) 0.7 % 0-1 [facility] Work Phone: Chloride [Moles/Vol] 106 mmol/L 98-107 [facility] Work Phone: Eosinophils/100 WBC (Bld) 4.0 % 0-5 [facility] Work Phone: Glucose [Mass/Vol] 145 mg/dL 74-106 [facility] Work Phone: Comment on above: Fasting Glucose resu lt greater than or equal to 126 mg/dL suggests DIABETES MELLITUS per A.D.A. criteria. Neutrophils (Bld) [#/Vol] 5.7 10*3/uL 2.0-7.7 [facility] Work Phone: Neutrophils/100 WBC (Bld) 66.5 % 47-70 [facility] Work Phone: Potassium [Moles/Vol] 4.3 mmol/L 3.5-5.1 [facility] Work Phone: Sodium [Moles/Vol] 136 mmol/L 136-145 [facility] Work Phone: WBC (Bld) [#/Vol] 8.5 10*3/uL 4.4-11.0 [facility] Work Phone: Basophil percentage 0 SEEN /hpf [facility] Work Phone: Bilirubin Test strip Ql (U)o n 07-11-2021 Bilirubin Ql (U) Negative Negative [facility] Work Phone: Blood erythrocytes count (nu mber/volume)on 07-11-2021 RBC (Bld) [#/Vol] 3.72 10*6/uL 4.2-5.4 [facility] Work Phone: Blood hemoglobin measurement (mass/volume)on 07-11-2021 Hemoglobin (Bld) [Mass/Vol] 11.7 g/dL 12.0-15.0 [facility] Work Phone: Blood lymphocytes/100 leukoc yteson 07-11-2021 Lymphocytes/100 WBC (Bld) 20.5 % 19-41 [facility] Work Phone: Blood monocytes/100 leukocyt eson 07-11-2021 Monocytes/100 WBC (Bld) 8.1 % 0-10 [facility] Work Phone: Blood platelet mean volumeon 07-11-2021 Platelet mean volume (Bld) [Entitic vol] 9.7 fL 6.2-12.0 [facility] Work Phone: Culture, urineon 07-11-2021 Bacteria identified Cx Nom (U) Presumptive E. coli [facility] Work Phone: Determination of erythrocyte mean corpuscular volume (MCV)on 07-11-2021 MCV (RBC) [Entitic vol] 93.5 fL 81-99 [facility] Work Phone: Hematocrit Auto (Bld) [Volum e fraction]on 07-11-2021 Hematocrit (Bld) [Volume fraction] 34.8 % 37-47 [facility] Work Phone: Ketones Test strip Ql (U)on 07-11-2021 Ketones Ql (U) Negative Negative [facility] Work Phone: Laboratory - Chemistry and C hemistry - challengeon 07-11-2021 CO2 [Moles/Vol] 25.0 mmol/L 21.0-32.0 [facility] Work Phone: [phone] Urea nitrogen/Creatinine [Mass ratio] 20.6 mg/mg 10-20 [facility] Work Phone: [phone] Laboratory - Hematology and Cell countson 07-11-2021 Erythrocyte distribution width (RBC) [Entitic vol] 44.7 fL 35.1-43.9 [facility] Work Phone: [phone] Erythrocyte distribution width (RBC) [Ratio] 13.1 % 11.6-14.6 [facility] Work Phone: [phone] Immature granulocytes/100 WBC (Bld) 0.200 % 0.0-0.9 [facility] Work Phone: [phone] Comment on above: IG% - Immature Granu locytes (promyelocytes, myelocytes and metamyelocytes) > 1% indicates that a LEFT SHIFT is Present. MCH (RBC) [Entitic mass] 31.5 pg 27.0-32.0 [facility] Work Phone: [phone] Nucleated RBC/100 WBC (Bld) [Ratio] 0 % 0-5 [facility] Work Phone: [phone] MCHC Auto (RBC) [Mass/Vol]on 07-11-2021 MCHC (RBC) [Mass/Vol] 33.6 g/dL 32-36 [facility] Work Phone: [phone] Mucus LM Ql (Urine sed)on Mucus Ql (Urine sed) 0 SEEN /hpf [facility] Work Phone: [phone] Nitrite Test strip Ql (U)on 07-11-2021 Nitrite Ql (U) Negative Negative [facility] Work Phone: [phone] No Panel Informationon 07-11 Estimated Creatinine Clearance Calc 31.41 ml/min [facility] Work Phone: [phone] Estimated GFR (MDRD) Amer 70 mL/min >60 [facility] Work Phone: [phone] Comment on above: GFR Calc Estimated GFR (MDRD) Non-Af Amer 58 mL/min >60 [facility] Work Phone: Comment on above: Non- GFR Calc Platelets bldon 07-11-2021 Platelets (Bld) [#/Vol] 425 10*3/uL 150-450 [facility] Work Phone: [phone] Protein Test strip Ql (U)on 07-11-2021 Protein Ql (U) Negative Negative [facility] Work Phone: [phone] Serum or plasma calcium bryan urement (mass/volume)on 07-11-2021 Calcium [Mass/Vol] 9.1 mg/dL 8.5-10.1 [facility] Work Phone: [phone] Serum or plasma creatinine m easurement (mass/volume)on 07-11-2021 Creatinine [Mass/Vol] 0.97 mg/dL 0.55-1.02 [facility] Work Phone: Comment on above: The validity of the calculated GFR & GFRAA in patients over 70 years has not been determined. Clinical correlation is essential. Serum or plasma urea nitroge n measurement (mass/volume)on 07-11-2021 Urea nitrogen [Mass/Vol] 20 mg/dL 7-18 [facility] Work Phone: [phone] Squamous epithelial cells de tection in urine sediment by light microscopyon 07-11-2021 Epithelial cells.squamous LM Ql (Urine sed) 0-5 SEEN /hpf [facility] Work Phone: [phone] Thin prep Papanicolaou smear with manual screeningon 07-11-2021 Thin prep Papanicolaou smear with manual screening 5 5-15 [facility] Work Phone: [phone] Urine blood detectionon 06-16 RBC Ql (U) 10 /ul Negative [facility] Work Phone: [phone] RBC Ql (U) 0-5 SEEN /hpf [facility] Work Phone: [phone] Urine clarityon 07-11-2021 Clarity (U) Clear Clear [facility] Work Phone: Urine color determinationon 07-11-2021 Color (U) Yellow Yellow [facility] Work Phone: Urine glucose detectionon Glucose Ql (U) Normal mg/dl Normal [facility] Work Phone: Urine leukocyte esterase det ection by dipstickon 07-11-2021 Leukocyte esterase Test strip Ql (U) Negative Negative [facility] Work Phone: Urine pHon 07-11-2021 pH (U) 5.0 [pH] [facility] Work Phone: Urine sediment bacteria coun t by microscopy (number/high power field)on 07-11-2021 Bacteria LM.HPF (Urine sed) [#/Area] 0 /[HPF] None Seen [facility] Work Phone: Urine specific gravity measu rementon 07-11-2021 Specific gravity (U) [Rel density] 1.020 [facility] Work Phone: Urobilinogen Auto test strip Ql (U)on 07-11-2021 Urobilinogen Ql (U) Normal mg/dl Normal [facility] Work Phone: No Panel Informationon 07-08 SARS-CoV-2 Antigen (Rapid) [facility] Work Phone: Basophil percentageon 2021 Bilirubin [Mass/Vol] 0.50 mg/dL 0.20-1.00 [facility] Work Phone: Comment on above: For patients on eltr ombopag therapy, use of Dimension [place] TBIL is not recommended. Chloride [Moles/Vol] 108 mmol/L 98-107 [facility] Work Phone: Glucose [Mass/Vol] 98 mg/dL 74-106 [facility] Work Phone: Potassium [Moles/Vol] 4.0 mmol/L 3.5-5.1 [facility] Work Phone: [phone] Protein [Mass/Vol] 6.3 g/dL 6.4-8.2 [facility] Work Phone: Sodium [Moles/Vol] 140 mmol/L 136-145 [facility] Work Phone: Basophil percentage 25-50 SEEN /hpf [facility] Work Phone: Bilirubin Test strip Ql (U)o n 07-06-2021 Bilirubin Ql (U) Negative Negative [facility] Work Phone: Culture, urineon 07-06-2021 Bacteria identified Cx Nom (U) Escherichia coli [facility] Work Phone: INR in Blood by Coagulation assayon 07-06-2021 INR Coag (Bld) [Relative time] 2.8 {INR} [facility] Work Phone: Ketones Test strip Ql (U)on 07-06-2021 Ketones Ql (U) Negative Negative [facility] Work Phone: Laboratory - Chemistry and C hemistry - challengeon 07-06-2021 ALP [Catalytic activity/Vol] 60 U/L 45-117 [facility] Work Phone: ALT [Catalytic activity/Vol] 9 U/L 13-56 [facility] Work Phone: CO2 [Moles/Vol] 28.0 mmol/L 21.0-32.0 [facility] Work Phone: [phone] Globulin (S) [Mass/Vol] 3.6 g/dL 2.2-4.2 [facility] Work Phone: Urea nitrogen/Creatinine [Mass ratio] 19.8 mg/mg 10-20 [facility] Work Phone: Laboratory - Coagulationon 0 07-06-2021 PT Coag (PPP) [Time] 28.4 s 11.7-14.9 [facility] Work Phone: Mucus LM Ql (Urine sed)on Mucus Ql (Urine sed) 0 SEEN /hpf [facility] Work Phone: Nitrite Test strip Ql (U)on 07-06-2021 Nitrite Ql (U) Negative Negative [facility] Work Phone: No Panel Informationon 07-06 Estimated Creatinine Clearance Calc 36.09 ml/min [facility] Work Phone: Estimated GFR (MDRD) Amer 81 mL/min >60 [facility] Work Phone: Comment on above: GFR Calc Estimated GFR (MDRD) Non-Af Amer 67 mL/min >60 [facility] Work Phone: [phone] Comment on above: Non- GFR Calc Protein Test strip Ql (U)on 07-06-2021 Protein Ql (U) 15 mg/dl Negative [facility] Work Phone: Serum or plasma albumin bryan urement (mass/volume)on 07-06-2021 Albumin [Mass/Vol] 2.7 g/dL 3.2-5.0 [facility] Work Phone: [phone] Serum or plasma albumin/glob ulin mass ratioon 07-06-2021 Albumin/Globulin [Mass ratio] 0.8 {ratio} 0.9-2.4 [facility] Work Phone: [phone] Serum or plasma calcium bryan urement (mass/volume)on 07-06-2021 Calcium [Mass/Vol] 8.6 mg/dL 8.5-10.1 [facility] Work Phone: [phone] Serum or plasma creatinine m easurement (mass/volume)on 07-06-2021 Creatinine [Mass/Vol] 0.86 mg/dL 0.55-1.02 [facility] Work Phone: Comment on above: The validity of the calculated GFR & GFRAA in patients over 70 years has not been determined. Clinical correlation is essential. Serum or plasma urea nitroge n measurement (mass/volume)on 07-06-2021 Urea nitrogen [Mass/Vol] 17 mg/dL 7-18 [facility] Work Phone: [phone] Squamous epithelial cells de tection in urine sediment by light microscopyon 02-22-2022 Epithelial cells.squamous LM Ql (Urine sed) 0-5 SEEN /hpf [facility] Work Phone: Thin prep Papanicolaou smear with manual screeningon 07-06-2021 Thin prep Papanicolaou smear with manual screening 11 U/L 15-37 [facility] Work Phone: Thin prep Papanicolaou smear with manual screening 4 5-15 [facility] Work Phone: Urine blood detectionon 06-16 RBC Ql (U) 25 /ul Negative [facility] Work Phone: RBC Ql (U) 0-5 SEEN /hpf [facility] Work Phone: Urine clarityon 07-06-2021 Clarity (U) Cloudy Clear [facility] Work Phone: Comment on above: Previous reported re sult: Clear Edited by: DIEGO on 07/06/21:0211 AMENDED REPORT 07/06/21 021 CLARITY previously reported as: Clear Urine color determinationon 07-06-2021 Color (U) Yellow Yellow [facility] Work Phone: Urine glucose detectionon Glucose Ql (U) Normal mg/dl Normal [facility] Work Phone: Urine leukocyte esterase det ection by dipstickon 07-06-2021 Leukocyte esterase Test strip Ql (U) 500 /ul Negative [facility] Work Phone: Urine pHon 07-06-2021 pH (U) 6.0 [pH] [facility] Work Phone: Urine sediment bacteria coun t by microscopy (number/high power field)on 07-06-2021 Bacteria LM.HPF (Urine sed) [#/Area] 4 /[HPF] None Seen [facility] Work Phone: Urine specific gravity measu rementon 07-06-2021 Specific gravity (U) [Rel density] 1.015 [facility] Work Phone: Urobilinogen Auto test strip Ql (U)on 07-06-2021 Urobilinogen Ql (U) 1 mg/dl Normal [facility] Work Phone: Absolute lymphocyte counton 07-05-2021 Lymphocytes Auto (Unsp spec) [#/Vol] 1.92 10*3/uL 0.83-4.51 [facility] Work Phone: Basophil percentageon 2021 Basophils/100 WBC (Bld) 0.5 % 0-1 [facility] Work Phone: Eosinophils/100 WBC (Bld) 1.0 % 0-5 [facility] Work Phone: Neutrophils (Bld) [#/Vol] 7.5 10*3/uL 2.0-7.7 [facility] Work Phone: Neutrophils/100 WBC (Bld) 67.5 % 47-70 [facility] Work Phone: WBC (Bld) [#/Vol] 11.1 10*3/uL 4.4-11.0 [facility] Work Phone: Blood erythrocytes count (nu mber/volume)on 07-05-2021 RBC (Bld) [#/Vol] 3.61 10*6/uL 4.2-5.4 [facility] Work Phone: Blood hemoglobin measurement (mass/volume)on 07-05-2021 Hemoglobin (Bld) [Mass/Vol] 11.2 g/dL 12.0-15.0 [facility] Work Phone: Blood lymphocytes/100 leukoc yteson 07-05-2021 Lymphocytes/100 WBC (Bld) 17.3 % 19-41 [facility] Work Phone: Blood monocytes/100 leukocyt eson 07-05-2021 Monocytes/100 WBC (Bld) 13.2 % 0-10 [facility] Work Phone: Blood platelet mean volumeon 07-05-2021 Platelet mean volume (Bld) [Entitic vol] 10.0 fL 6.2-12.0 [facility] Work Phone: Determination of erythrocyte mean corpuscular volume (MCV)on 07-05-2021 MCV (RBC) [Entitic vol] 93.9 fL 81-99 [facility] Work Phone: [phone] Hematocrit Auto (Bld) [Volum e fraction]on 07-05-2021 Hematocrit (Bld) [Volume fraction] 33.9 % 37-47 [facility] Work Phone: Laboratory - Hematology and Cell countson 07-05-2021 Erythrocyte distribution width (RBC) [Entitic vol] 46.7 fL 35.1-43.9 [facility] Work Phone: [phone] Erythrocyte distribution width (RBC) [Ratio] 13.5 % 11.6-14.6 [facility] Work Phone: [phone] Immature granulocytes/100 WBC (Bld) 0.500 % 0.0-0.9 [facility] Work Phone: [phone] Comment on above: IG% - Immature Granu locytes (promyelocytes, myelocytes and metamyelocytes) > 1% indicates that a LEFT SHIFT is Present. MCH (RBC) [Entitic mass] 31.0 pg 27.0-32.0 [facility] Work Phone: Nucleated RBC/100 WBC (Bld) [Ratio] 0 % 0-5 [facility] Work Phone: [phone] MCHC Auto (RBC) [Mass/Vol]on 07-05-2021 MCHC (RBC) [Mass/Vol] 33.0 g/dL 32-36 [facility] Work Phone: No Panel Informationon 07-05 SARS-CoV-2 Antigen (Rapid) [facility] Work Phone: Platelets bldon 07-05-2021 Platelets (Bld) [#/Vol] 326 10*3/uL 150-450 [facility] Work Phone: INR in Blood by Coagulation assayon 06-21-2021 INR Coag (Bld) [Relative time] 2.2 {INR} [facility] Work Phone: Laboratory - Coagulationon 0 06-21-2021 PT Coag (PPP) [Time] 23.6 s 11.7-14.9 [facility] Work Phone: SARS coronavirus RNA [Presen ce] in Unspecified specimen by HEATHER with probe detectionon 05-21-2021 SARS-CoV RNA HEATHER+probe Ql (Unsp spec) Not detected Not Detected [facility] Work Phone: Comment on above: This nucleic acid am plification test was developed and itsperformance characteristics determined by [facility]. Nucleic acid amplification tests include RT-PCR and TMA. This test has not been FDA cleared orapproved. This test has been authorized by FDA under anEmergency Use Authorization (EUA). This test is onlyauthorized for the duration of time the declaration thatcircumstances exist justifying the authorization of theemergency use of in vitro diagnostic tests for detection [id number] virus and/or diagnosis of COVID-19 infectionunder section 564(b)(1) of the Act, 21 U.S.C. 360bbb-3(b)(1), unless the authorization is terminated or revokedsooner.When diagnostic testing is negative, the possibility of afalse negative result should be considered in the contextof a patient's recent exposures and the presence ofclinical signs and symptoms consistent with COVID-19. Anindividual without symptoms of COVID-19 and who is notshedding SARS-CoV-2 virus would expect to have a negative(not detected) result in this assay. Absolute lymphocyte counton 05-17-2021 Lymphocytes Auto (Unsp spec) [#/Vol] 1.47 10*3/uL 0.83-4.51 [facility] Work Phone: Basophil percentageon 2021 Basophils/100 WBC (Bld) 1.0 % 0-1 [facility] Work Phone: Bilirubin [Mass/Vol] 0.40 mg/dL 0.20-1.00 [facility] Work Phone: Comment on above: For patients on eltr ombopag therapy, use of Dimension [place] TBIL is not recommended. Chloride [Moles/Vol] 106 mmol/L 98-107 [facility] Work Phone: Eosinophils/100 WBC (Bld) 3.4 % 0-5 [facility] Work Phone: Glucose [Mass/Vol] 129 mg/dL 74-106 [facility] Work Phone: Comment on above: Fasting Glucose resu lt greater than or equal to 126 mg/dL suggests DIABETES MELLITUS per A.D.A. criteria.Please note revised GLUCOSE reference range effective 2017. Neutrophils (Bld) [#/Vol] 5.3 10*3/uL 2.0-7.7 [facility] Work Phone: Neutrophils/100 WBC (Bld) 67.4 % 47-70 [facility] Work Phone: Potassium [Moles/Vol] 4.1 mmol/L 3.5-5.1 [facility] Work Phone: Protein [Mass/Vol] 6.7 g/dL 6.4-8.2 [facility] Work Phone: Sodium [Moles/Vol] 141 mmol/L 136-145 [facility] Work Phone: WBC (Bld) [#/Vol] 7.9 10*3/uL 4.4-11.0 [facility] Work Phone: Blood erythrocytes count (nu mber/volume)on 05-17-2021 RBC (Bld) [#/Vol] 3.74 10*6/uL 4.2-5.4 [facility] Work Phone: Blood hemoglobin measurement (mass/volume)on 05-17-2021 Hemoglobin (Bld) [Mass/Vol] 11.7 g/dL 12.0-15.0 [facility] Work Phone: Blood lymphocytes/100 leukoc yteson 05-17-2021 Lymphocytes/100 WBC (Bld) 18.7 % 19-41 [facility] Work Phone: Blood monocytes/100 leukocyt eson 05-17-2021 Monocytes/100 WBC (Bld) 9.4 % 0-10 [facility] Work Phone: Blood platelet mean volumeon 05-17-2021 Platelet mean volume (Bld) [Entitic vol] 10.3 fL 6.2-12.0 [facility] Work Phone: Determination of erythrocyte mean corpuscular volume (MCV)on 05-17-2021 MCV (RBC) [Entitic vol] 96.3 fL 81-99 [facility] Work Phone: Hematocrit Auto (Bld) [Volum e fraction]on 05-17-2021 Hematocrit (Bld) [Volume fraction] 36.0 % 37-47 [facility] Work Phone: [phone] INR in Blood by Coagulation assayon 05-17-2021 INR Coag (Bld) [Relative time] 2.8 {INR} [facility] Work Phone: Laboratory - Chemistry and C hemistry - challengeon 05-17-2021 ALP [Catalytic activity/Vol] 72 U/L 45-117 [facility] Work Phone: ALT [Catalytic activity/Vol] 15 U/L 13-56 [facility] Work Phone: CO2 [Moles/Vol] 29.0 mmol/L 21.0-32.0 [facility] Work Phone: Globulin (S) [Mass/Vol] 3.5 g/dL 2.2-4.2 [facility] Work Phone: Urea nitrogen/Creatinine [Mass ratio] 16.4 mg/mg 10-20 [facility] Work Phone: Laboratory - Coagulationon 0 05-17-2021 PT Coag (PPP) [Time] 28.8 s 11.7-14.9 [facility] Work Phone: Laboratory - Hematology and Cell countson 05-17-2021 Erythrocyte distribution width (RBC) [Entitic vol] 47.8 fL 35.1-43.9 [facility] Work Phone: [phone] Erythrocyte distribution width (RBC) [Ratio] 13.4 % 11.6-14.6 [facility] Work Phone: [phone] Immature granulocytes/100 WBC (Bld) 0.100 % 0.0-0.9 [facility] Work Phone: [phone] Comment on above: IG% - Immature Granu locytes (promyelocytes, myelocytes and metamyelocytes) > 1% indicates that a LEFT SHIFT is Present. MCH (RBC) [Entitic mass] 31.3 pg 27.0-32.0 [facility] Work Phone: [phone] Nucleated RBC/100 WBC (Bld) [Ratio] 0 % 0-5 [facility] Work Phone: [phone] MCHC Auto (RBC) [Mass/Vol]on 05-17-2021 MCHC (RBC) [Mass/Vol] 32.5 g/dL 32-36 [facility] Work Phone: No Panel Informationon 05-17 Estimated GFR (MDRD) Amer 75 mL/min >60 [facility] Work Phone: Comment on above: GFR Calc Estimated GFR (MDRD) Non-Af Amer 62 mL/min >60 [facility] Work Phone: Comment on above: Non- GFR Calc Platelets bldon 05-17-2021 Platelets (Bld) [#/Vol] 362 10*3/uL 150-450 [facility] Work Phone: [phone] Serum or plasma albumin bryan urement (mass/volume)on 05-17-2021 Albumin [Mass/Vol] 3.2 g/dL 3.2-5.0 [facility] Work Phone: [phone] Serum or plasma albumin/glob ulin mass ratioon 05-17-2021 Albumin/Globulin [Mass ratio] 0.9 {ratio} 0.9-2.4 [facility] Work Phone: [phone] Serum or plasma calcium bryan urement (mass/volume)on 05-17-2021 Calcium [Mass/Vol] 8.6 mg/dL 8.5-10.1 [facility] Work Phone: Serum or plasma creatinine m easurement (mass/volume)on 05-17-2021 Creatinine [Mass/Vol] 0.92 mg/dL 0.55-1.02 [facility] Work Phone: Comment on above: The validity of the calculated GFR & GFRAA in patients over 70 years has not been determined. Clinical correlation is essential. Serum or plasma urea nitroge n measurement (mass/volume)on 05-17-2021 Urea nitrogen [Mass/Vol] 15 mg/dL 7-18 [facility] Work Phone: Thin prep Papanicolaou smear with manual screeningon 05-17-2021 Thin prep Papanicolaou smear with manual screening 20 U/L 15-37 [facility] Work Phone: Thin prep Papanicolaou smear with manual screening 6 5-15 [facility] Work Phone: HAND COMP MIN 3 VWS LTon HAND COMP MIN 3 VWS LT HAND COMP MIN 3 V WS LT Ordering Physician: Melvin Weber MD 08/19/2020 12:06 PM LEFT HAND THREE VIEWS: Clinical Statement: Joint pain Comparison: 12/24/2018 FINDINGS: There is a mildly displaced oblique fracture through the midshaft of the fifth metacarpal bone. The distal fragment is displaced slightly laterally by about 2 mm. No intra-articular extension. There are degenerative changes at the DIP joints and to lesser extent PIP joints. There is severe degeneration of the trapezium first metacarpal joint as seen previously. IMPRESSION: Fracture of the fifth metacarpal. Report was faxed at the time of dictation. ---- Electronic Signature on File ---- Signed By: Gloria Morejon MD PhD [email or web address] Dictated: 08/19/2020 12:36 PM Signed: 08/19/2020 12:40 PM Reported By: GLORIA MOREJON M.D. Signed By: GLORIA MOREJON M.D. [facility] Steven Medina 11-27-2017 Basophils #/vol (Bld) 0.10 x10(3) Normal 0.00-0.10 [facility] Comment on above: Performed By: #### L 301.0100, L301.0105, L301.0120 #### [facility] [address] [place] [id number] Basophils/100 WBC (Bld) 0.9 % Normal 0.0-1.0 [facility] Comment on above: Performed By: #### L 301.0100, L301.0105, L301.0120 #### [facility] [address] [place] [address] Eosinophils #/vol (Bld) 0.10 x10(3) Normal 0.00-0.54 [facility] Comment on above: Performed By: #### L 301.0100, L301.0105, L301.0120 #### [facility] [address] [place] [address] Eosinophils/100 WBC (Bld) 1.2 % Normal 0.5-4.9 [facility] Comment on above: Performed By: #### L 301.0100, L301.0105, L301.0120 #### [facility] [address] [place] [address] Erythrocyte distribution width Ratio (RBC) 14.3 % Normal 12.5-15.7 [facility] Comment on above: Performed By: #### L 301.0100, L301.0105, L301.0120 #### [facility] [address] [place] [address] Hematocrit Volume Fraction (Bld) 27.5 % Low 36.0-48.0 [facility] Comment on above: Performed By: #### L 301.0100, L301.0105, L301.0120 #### - LABORATORY [address] [place] [address] 06372 Hemoglobin mass conc (Bld) 9.4 g/dL Low 12.0-16.0 [facility] Comment on above: Performed By: #### L 301.0100, L301.0105, L301.0120 #### - LABORATORY [address] [place] [address] 79762 Lymphocytes #/vol (Bld) 2.30 x10(3) Normal 1.00-3.50 [facility] Comment on above: Performed By: #### L 301.0100, L301.0105, L301.0120 #### ML - LABORATORY [address] [place] [address] 81296 Lymphocytes/100 WBC (Bld) 19.0 % Normal 16.0-48.0 [facility] Comment on above: Performed By: #### L 301.0100, L301.0105, L301.0120 #### - LABORATORY [address] [place] [address] 89679 MCH Entitic mass (RBC) 29.6 pg Normal 28.5-32.9 [facility] Comment on above: Performed By: #### L 301.0100, L301.0105, L301.0120 #### ML - LABORATORY [address] [place] [address] 52897 MCHC mass conc (RBC) 34.0 g/dL Normal 33.0-36.0 [facility] Comment on above: Performed By: #### L 301.0100, L301.0105, L301.0120 #### - LABORATORY [address] [place] [address] 16396 MCV Entitic volume (RBC) 87.0 fL Normal 80.0-99.0 [facility] Comment on above: Performed By: #### L 301.0100, L301.0105, L301.0120 #### [facility] [address] [place] [address] 03218 Monocytes #/vol (Bld) 0.80 x10(3) Normal 0.30-0.80 [facility] Comment on above: Performed By: #### L 301.0100, L301.0105, L301.0120 #### - LABORATORY [address] [place] [address] 20935 Monocytes/100 WBC (Bld) 6.4 % Normal 4.3-11.2 [facility] Comment on above: Performed By: #### L 301.0100, L301.0105, L301.0120 #### [facility] [address] [place] [address] 87669 Neutrophils #/vol (Bld) 8.60 x10(3) High 1.40-6.50 [facility] Comment on above: Performed By: #### L 301.0100, L301.0105, L301.0120 #### [facility] [address] [place] [address] 92764 Neutrophils/100 WBC (Bld) 72.5 % Normal 45.0-73.0 [facility] Comment on above: Performed By: #### L 301.0100, L301.0105, L301.0120 #### [facility] [address] [place] [address] 44213 Platelet mean volume Entitic volume (Bld) 8.0 fL Normal 7.5-9.5 [facility] Comment on above: Performed By: #### L 301.0100, L301.0105, L301.0120 #### [facility] [address] [place] [address] 92734 Platelets #/vol (Bld) 595 X10(3) High 150-450 [facility] Comment on above: Performed By: #### L 301.0100, L301.0105, L301.0120 #### [facility] [address] [place] [address] 07319 RBC #/vol (Bld) 3.17 x10(6) Low 3.30-5.00 [facility] Comment on above: Performed By: #### L 301.0100, L301.0105, L301.0120 #### [facility] [address] [place] [address] 39809 WBC #/vol (Bld) 11.8 x10(3) High 4.5-10.0 [facility] Comment on above: Performed By: #### L 301.0100, L301.0105, L301.0120 #### [facility] - [facility] [address] [place] [address] CLINICAL RESUMEon 11-27-2017 [place] [address] HEALTH INFORMATION MANAGEMENT CLINICAL RESUME Patient: SG VELASCOAVRIL Ludwig [id number] F Status: DIS IN [facility] 2222-A Date of Admission: 11/20/17 Date of [...] have a lung mass. The recommendation from relocation manager is to continue anticoagulation and check a [...] improved. DISPOSITION Will be discharged to a long-term. ACTIVITY As tolerated. DIET Cardiac. DISCHARGE MEDICATIONS 1. She may resume all of her home meds except sotalol is added. 2. Coumadin 3 mg daily. 3. Sotalol 40 twice a day. 4. Lopressor 25 daily. FOLLOWUP The patient should follow up with relocation manager in 4 weeks regarding lung biopsy and PET scan. DISCHARGE TIME Thirty five minutes. 12/04/17 1810 AVRIL ESTRADA M.D. cc: AVRIL ESTRADA M.D. << Signature on File>> Reported By: AVRIL ESTRADA M.D. Signed By: DILAN BRIZUELA M.D. Tests performed at: [address] [address] Normal [facility] PTon 11-27-2017 INR Coag RelTime (PPP) 3.2 {INR} Normal [facility] Comment on above: Result Comment: CO UMADIN PROTOCOLS INR values are generated for use in patients on coumadin. INR values stabilize 7 days after the start of coumadin or changes in coumadin dosage. The usual TARGET/INR range is: INDICATION INR RANGE Prophylaxis/treatment of: Venous Thrombosis, Pulmonary Embolism 2.0-3.0 Prevention of systemic embolism from: Tissue heart valves 2.0-3.0 Acute myocardial infarction (to prevent systemic embolism) 2.0-3.0 AMI (to prevent recurrent ME) 2.5-3.5 Valvular heart disease 2.0-3.0 Atrial fibrillation 2.0-3.0 Mechanical prosthetic valves (high risk) 2.5-3.5 Bileaflet mechanical valve in aortic position 2.0-3.0 Presence of Lupus Anticoagulant or Antiphospholipid Antibodies 2.5-3.5 PANIC VALUE: GREATER THAN OR EQUAL TO 4.5 Performed By: #### L 301.0100, L301.0105, L301.0120 #### [facility] [address] [place] [address] 82662 Prothrombin time (PT) Coag time (PPP) 37.1 s High 9.4-12.5 [facility] Comment on above: Performed By: #### L 301.0100, L301.0105, L301.0120 #### - LABORATORY [address] [place] [address] 22043 CBCon 11-26-2017 Basophils #/vol (Bld) 0.10 x10(3) Normal 0.00-0.10 [facility] Comment on above: Performed By: #### L 301.0100, L301.0105, L301.0120 #### ML [facility] [address] [place] [address] 03529 Basophils/100 WBC (Bld) 1.3 % High 0.0-1.0 [facility] Comment on above: Performed By: #### L 301.0100, L301.0105, L301.0120 #### ML [facility] [address] [place] [address] 88264 Eosinophils #/vol (Bld) 0.80 x10(3) High 0.00-0.54 [facility] Comment on above: Performed By: #### L 301.0100, L301.0105, L301.0120 #### ML [facility] [address] [place] [address] 74898 Eosinophils/100 WBC (Bld) 7.4 % High 0.5-4.9 [facility] Comment on above: Performed By: #### L 301.0100, L301.0105, L301.0120 #### ML - LABORATORY [address] [place] [address] 33878 Erythrocyte distribution width Ratio (RBC) 14.6 % Normal 12.5-15.7 [facility] Comment on above: Performed By: #### L 301.0100, L301.0105, L301.0120 #### ML - LABORATORY [address] [place] [address] 93171 Hematocrit Volume Fraction (Bld) 28.4 % Low 36.0-48.0 [facility] Comment on above: Performed By: #### L 301.0100, L301.0105, L301.0120 #### ML - LABORATORY [address] [place] [address] 38002 Hemoglobin mass conc (Bld) 9.5 g/dL Low 12.0-16.0 [facility] Comment on above: Performed By: #### L 301.0100, L301.0105, L301.0120 #### - LABORATORY [address] [place] [address] 00059 Lymphocytes #/vol (Bld) 2.10 x10(3) Normal 1.00-3.50 [facility] Comment on above: Performed By: #### L 301.0100, L301.0105, L301.0120 #### - LABORATORY [address] [place] [address] 96770 Lymphocytes/100 WBC (Bld) 19.9 % Normal 16.0-48.0 [facility] Comment on above: Performed By: #### L 301.0100, L301.0105, L301.0120 #### ML - LABORATORY [address] [place] [address] 61712 MCH Entitic mass (RBC) 29.4 pg Normal 28.5-32.9 [facility] Comment on above: Performed By: #### L 301.0100, L301.0105, L301.0120 #### ML - LABORATORY [address] [place] [address] 80142 MCHC mass conc (RBC) 33.6 g/dL Normal 33.0-36.0 [facility] Comment on above: Performed By: #### L 301.0100, L301.0105, L301.0120 #### ML - LABORATORY [address] [place] [address] 72572 MCV Entitic volume (RBC) 87.5 fL Normal 80.0-99.0 [facility] Comment on above: Performed By: #### L 301.0100, L301.0105, L301.0120 #### - LABORATORY [address] [place] [address] 09274 Monocytes #/vol (Bld) 0.70 x10(3) Normal 0.30-0.80 [facility] Comment on above: Performed By: #### L 301.0100, L301.0105, L301.0120 #### [facility] [address] [place] [address] 61074 Monocytes/100 WBC (Bld) 6.9 % Normal 4.3-11.2 [facility] Comment on above: Performed By: #### L 301.0100, L301.0105, L301.0120 #### [facility] [address] [place] [address] 57185 Neutrophils #/vol (Bld) 6.80 x10(3) High 1.40-6.50 [facility] Comment on above: Performed By: #### L 301.0100, L301.0105, L301.0120 #### [facility] [address] [place] [address] 63203 Neutrophils/100 WBC (Bld) 64.5 % Normal 45.0-73.0 [facility] Comment on above: Performed By: #### L 301.0100, L301.0105, L301.0120 #### [facility] [address] [place] [address] 99073 Platelet mean volume Entitic volume (Bld) 8.0 fL Normal 7.5-9.5 [facility] Comment on above: Performed By: #### L 301.0100, L301.0105, L301.0120 #### [facility] [address] [place] [address] 40550 Platelets #/vol (Bld) 569 X10(3) High 150-450 [facility] Comment on above: Performed By: #### L 301.0100, L301.0105, L301.0120 #### [facility] [address] [place] [address] 59831 RBC #/vol (Bld) 3.24 x10(6) Low 3.30-5.00 [facility] Comment on above: Performed By: #### L 301.0100, L301.0105, L301.0120 #### ML - LABORATORY [address] [place] [address] 14859 WBC #/vol (Bld) 10.5 x10(3) High 4.5-10.0 [facility] Comment on above: Performed By: #### L 301.0100, L301.0105, L301.0120 #### ML [facility] [address] [place] [address] 90029 PTon 11-26-2017 INR Coag RelTime (PPP) 3.4 {INR} Normal [facility] Comment on above: Result Comment: CO UMADIN PROTOCOLS INR values are generated for use in patients on coumadin. INR values stabilize 7 days after the start of coumadin or changes in coumadin dosage. The usual TARGET/INR range is: INDICATION INR RANGE Prophylaxis/treatment of: Venous Thrombosis, Pulmonary Embolism 2.0-3.0 Prevention of systemic embolism from: Tissue heart valves 2.0-3.0 Acute myocardial infarction (to prevent systemic embolism) 2.0-3.0 AMI (to prevent recurrent ME) 2.5-3.5 Valvular heart disease 2.0-3.0 Atrial fibrillation 2.0-3.0 Mechanical prosthetic valves (high risk) 2.5-3.5 Bileaflet mechanical valve in aortic position 2.0-3.0 Presence of Lupus Anticoagulant or Antiphospholipid Antibodies 2.5-3.5 PANIC VALUE: GREATER THAN OR EQUAL TO 4.5 Performed By: #### L 301.0100, L301.0105, L301.0120 #### ML [facility] [address] [place] [address] 45163 Prothrombin time (PT) Coag time (PPP) 39.4 s High 9.4-12.5 [facility] Comment on above: Performed By: #### L 301.0100, L301.0105, L301.0120 #### ML - LABORATORY [address] [place] [address] 66441 CBCon 11-25-2017 Basophils #/vol (Bld) 0.10 x10(3) Normal 0.00-0.10 [facility] Comment on above: Performed By: #### L 301.0100, L301.0105, L301.0120 #### [facility] [address] [place] [address] 54948 Basophils/100 WBC (Bld) 0.5 % Normal 0.0-1.0 [facility] Comment on above: Performed By: #### L 301.0100, L301.0105, L301.0120 #### [facility] [address] [place] [address] 49678 Eosinophils #/vol (Bld) 0.70 x10(3) High 0.00-0.54 [facility] Comment on above: Performed By: #### L 301.0100, L301.0105, L301.0120 #### [facility] [address] [place] [address] 64516 Eosinophils/100 WBC (Bld) 5.4 % High 0.5-4.9 [facility] Comment on above: Performed By: #### L 301.0100, L301.0105, L301.0120 #### [facility] [address] [place] [address] 53485 Erythrocyte distribution width Ratio (RBC) 14.4 % Normal 12.5-15.7 [facility] Comment on above: Performed By: #### L 301.0100, L301.0105, L301.0120 #### [facility] [address] [place] [address] 37630 Hematocrit Volume Fraction (Bld) 30.0 % Low 36.0-48.0 [facility] Comment on above: Performed By: #### L 301.0100, L301.0105, L301.0120 #### [facility] [address] [place] [address] 42529 Hemoglobin mass conc (Bld) 9.9 g/dL Low 12.0-16.0 [facility] Comment on above: Performed By: #### L 301.0100, L301.0105, L301.0120 #### [facility] [address] [place] [address] 45536 Lymphocytes #/vol (Bld) 2.20 x10(3) Normal 1.00-3.50 [facility] Comment on above: Performed By: #### L 301.0100, L301.0105, L301.0120 #### ML - LABORATORY [address] [place] [address] 53120 Lymphocytes/100 WBC (Bld) 17.8 % Normal 16.0-48.0 [facility] Comment on above: Performed By: #### L 301.0100, L301.0105, L301.0120 #### [facility] - LABORATORY [address] [place] [address] 37647 MCH Entitic mass (RBC) 29.1 pg Normal 28.5-32.9 [facility] Comment on above: Performed By: #### L 301.0100, L301.0105, L301.0120 #### [facility] - LABORATORY [address] [place] [address] 63163 MCHC mass conc (RBC) 33.1 g/dL Normal 33.0-36.0 [facility] Comment on above: Performed By: #### L 301.0100, L301.0105, L301.0120 #### ML - LABORATORY [address] [place] [address] 98093 MCV Entitic volume (RBC) 87.8 fL Normal 80.0-99.0 [facility] Comment on above: Performed By: #### L 301.0100, L301.0105, L301.0120 #### - LABORATORY [address] [place] [address] 33373 Monocytes #/vol (Bld) 0.80 x10(3) Normal 0.30-0.80 [facility] Comment on above: Performed By: #### L 301.0100, L301.0105, L301.0120 #### [facility] [address] [place] [address] 74873 Monocytes/100 WBC (Bld) 6.3 % Normal 4.3-11.2 [facility] Comment on above: Performed By: #### L 301.0100, L301.0105, L301.0120 #### [facility] - LABORATORY [address] [place] [address] 67659 Neutrophils #/vol (Bld) 8.60 x10(3) High 1.40-6.50 [facility] Comment on above: Performed By: #### L 301.0100, L301.0105, L301.0120 #### [facility] [address] [place] [address] 92760 Neutrophils/100 WBC (Bld) 70.0 % Normal 45.0-73.0 [facility] Comment on above: Performed By: #### L 301.0100, L301.0105, L301.0120 #### [facility] [address] [place] [address] 01944 Platelet mean volume Entitic volume (Bld) 8.1 fL Normal 7.5-9.5 [facility] Comment on above: Performed By: #### L 301.0100, L301.0105, L301.0120 #### [facility] [address] [place] [address] 18641 Platelets #/vol (Bld) 566 X10(3) Abnormal 150-450 Uni [facility] Comment on above: Result Comment: De lta check (#) indicates a significant change in this laboratory value. It needs clinical correlation with patient situation or treatment. If the change in this test does not match your clinical situation or therapy, you may wish to re-test to verify the result. Performed By: #### L 301.0100, L301.0105, L301.0120 #### [facility] [address] [place] [address] 64264 RBC #/vol (Bld) 3.42 x10(6) Normal 3.30-5.00 [facility] Comment on above: Performed By: #### L 301.0100, L301.0105, L301.0120 #### [facility] [address] [place] [address] 83944 WBC #/vol (Bld) 12.2 x10(3) High 4.5-10.0 [facility] Comment on above: Performed By: #### L 301.0100, L301.0105, L301.0120 #### ML [facility] [address] [place] [address] 04368 PTon 11-25-2017 INR Coag RelTime (PPP) 4.2 {INR} Normal [facility] Comment on above: Result Comment: CO UMADIN PROTOCOLS INR values are generated for use in patients on coumadin. INR values stabilize 7 days after the start of coumadin or changes in coumadin dosage. The usual TARGET/INR range is: INDICATION INR RANGE Prophylaxis/treatment of: Venous Thrombosis, Pulmonary Embolism 2.0-3.0 Prevention of systemic embolism from: Tissue heart valves 2.0-3.0 Acute myocardial infarction (to prevent systemic embolism) 2.0-3.0 AMI (to prevent recurrent ME) 2.5-3.5 Valvular heart disease 2.0-3.0 Atrial fibrillation 2.0-3.0 Mechanical prosthetic valves (high risk) 2.5-3.5 Bileaflet mechanical valve in aortic position 2.0-3.0 Presence of Lupus Anticoagulant or Antiphospholipid Antibodies 2.5-3.5 PANIC VALUE: GREATER THAN OR EQUAL TO 4.5 Performed By: #### L 301.0100, L301.0105, L301.0120 #### [facility] [address] [place] [address] 42390 Prothrombin time (PT) Coag time (PPP) 48.6 s High 9.4-12.5 [facility] Comment on above: Performed By: #### L 301.0100, L301.0105, L301.0120 #### [facility] [address] [place] [address] 40216 CBCon 11-24-2017 Basophils #/vol (Bld) 0.00 x10(3) Normal 0.00-0.10 [facility] Comment on above: Performed By: #### L 301.0100, L301.0105, L301.0120 #### [facility] [address] [place] [address] 66260 Basophils/100 WBC (Bld) 0.1 % Normal 0.0-1.0 [facility] Comment on above: Performed By: #### L 301.0100, L301.0105, L301.0120 #### - LABORATORY [address] [place] [address] 91253 Eosinophils #/vol (Bld) 0.00 x10(3) Normal 0.00-0.54 [facility] Comment on above: Performed By: #### L 301.0100, L301.0105, L301.0120 #### [facility] [address] [place] [address] 54487 Eosinophils/100 WBC (Bld) 0.1 % Low 0.5-4.9 [facility] Comment on above: Performed By: #### L 301.0100, L301.0105, L301.0120 #### [facility] [address] [place] [address] 26794 Erythrocyte distribution width Ratio (RBC) 14.5 % Normal 12.5-15.7 [facility] Comment on above: Performed By: #### L 301.0100, L301.0105, L301.0120 #### [facility] [address] [place] [address] 12133 Hematocrit Volume Fraction (Bld) 28.4 % Low 36.0-48.0 [facility] Comment on above: Performed By: #### L 301.0100, L301.0105, L301.0120 #### [facility] [address] [place] [address] 38135 Hemoglobin mass conc (Bld) 9.6 g/dL Low 12.0-16.0 [facility] Comment on above: Performed By: #### L 301.0100, L301.0105, L301.0120 #### [facility] [address] [place] [address] 53813 Lymphocytes #/vol (Bld) 0.60 x10(3) Low 1.00-3.50 [facility] Comment on above: Performed By: #### L 301.0100, L301.0105, L301.0120 #### [facility] [address] [place] [address] 79562 Lymphocytes/100 WBC (Bld) 5.1 % Low 16.0-48.0 [facility] Comment on above: Performed By: #### L 301.0100, L301.0105, L301.0120 #### [facility] - LABORATORY [address] [place] [address] 54920 MCH Entitic mass (RBC) 29.5 pg Normal 28.5-32.9 [facility] Comment on above: Performed By: #### L 301.0100, L301.0105, L301.0120 #### [facility] - LABORATORY [address] [place] [address] 34753 MCHC mass conc (RBC) 33.6 g/dL Normal 33.0-36.0 [facility] Comment on above: Performed By: #### L 301.0100, L301.0105, L301.0120 #### [facility] - LABORATORY [address] [place] [address] 29082 MCV Entitic volume (RBC) 87.8 fL Normal 80.0-99.0 [facility] Comment on above: Performed By: #### L 301.0100, L301.0105, L301.0120 #### - LABORATORY [address] [place] [address] 02348 Monocytes #/vol (Bld) 0.30 x10(3) Normal 0.30-0.80 [facility] Comment on above: Performed By: #### L 301.0100, L301.0105, L301.0120 #### [facility] [address] [place] [address] 86573 Monocytes/100 WBC (Bld) 2.4 % Low 4.3-11.2 [facility] Comment on above: Performed By: #### L 301.0100, L301.0105, L301.0120 #### [facility] [address] [place] [address] 62130 Neutrophils #/vol (Bld) 10.90 x10(3) High 1.40-6.50 [facility] Comment on above: Performed By: #### L 301.0100, L301.0105, L301.0120 #### - LABORATORY [address] [place] [address] 57374 Neutrophils/100 WBC (Bld) 92.3 % High 45.0-73.0 [facility] Comment on above: Performed By: #### L 301.0100, L301.0105, L301.0120 #### [facility] [address] [place] [address] 83979 Platelet mean volume Entitic volume (Bld) 8.5 fL Normal 7.5-9.5 [facility] Comment on above: Performed By: #### L 301.0100, L301.0105, L301.0120 #### [facility] [address] [place] [address] 09748 Platelets #/vol (Bld) 427 X10(3) Normal 150-450 [facility] Comment on above: Performed By: #### L 301.0100, L301.0105, L301.0120 #### [facility] [address] [place] [address] 09329 RBC #/vol (Bld) 3.24 x10(6) Low 3.30-5.00 [facility] Comment on above: Performed By: #### L 301.0100, L301.0105, L301.0120 #### [facility] [address] [place] [id number] WBC #/vol (Bld) 11.8 x10(3) High 4.5-10.0 [facility], [facility] Comment on above: Performed By: #### L 301.0100, L301.0105, L301.0120 #### [facility] [address] [place] [id number] CMPon 11-24-2017 A:G RATIO 0.71 Low 1.1-2.5 [facility]ly [facility], [facility] Comment on above: Performed By: #### L 301.0100, L301.0105, L301.0120 #### [facility] [address] [place] [address] 34937 Albumin mass conc 2.3 g/dL Low 3.5-5.2 [facility]ly [facility], [facility] Comment on above: Performed By: #### L 301.0100, L301.0105, L301.0120 #### - LABORATORY [address] [place] [address] 30412 ALK. PHOS 64 U/L Normal 35-105 [facility], [facility] Comment on above: Performed By: #### L 301.0100, L301.0105, L301.0120 #### - LABORATORY [address] [place] [address] 84969 ALT enzyme act/vol 9 U/L Normal 5-33 [facility], [facility] Comment on above: Performed By: #### L 301.0100, L301.0105, L301.0120 #### [facility] [address] [place] [address] 32001 Anion gap molar conc 17.7 mmol/L Normal 15-22 [facility]ly [facility], [facility] Comment on above: Performed By: #### L 301.0100, L301.0105, L301.0120 #### [facility] [address] [place] [address] 03384 AST enzyme act/vol 17 U/L Normal 5-32 [facility], [facility] Comment on above: Performed By: #### L 301.0100, L301.0105, L301.0120 #### [facility] [address] [place] [address] 41130 Bilirubin Ql (U) <0.2 Normal 0.2-1.2 [facility], [facility] Comment on above: Performed By: #### L 301.0100, L301.0105, L301.0120 #### [facility] [address] [place] [address] 18344 Calcium mass conc 8.5 mg/dL Low 8.8-10.2 [facility], [facility] Comment on above: Performed By: #### L 301.0100, L301.0105, L301.0120 #### [facility] [address] [place] [address] 99311 Chloride molar conc 102 mmol/L Normal 98-107 [facility], [facility] Comment on above: Performed By: #### L 301.0100, L301.0105, L301.0120 #### [facility] [place] [address] CO2 molar conc 23 mmol/L Normal 22-29 [facility], [facility] Comment on above: Performed By: #### L 301.0100, L301.0105, L301.0120 #### - LABORATORY [address] [place] [address] 02870 Creatinine mass conc 0.83 mg/dL Normal 0.50-0.90 [facility] Comment on above: Performed By: #### L 301.0100, L301.0105, L301.0120 #### [facility] - LABORATORY [address] [place] [address] 05788 eGFR if AFR ANTOLIN > 60 ml/min/1.73m2 Normal [facility] Comment on above: Result Comment: eGFR >= 60 Indicates normal kidney function. * eGFR IS AN ESTIMATE * (AFR ANTOLIN = ) (non-AFR AM = NON-) MDRD calculation used in the eGFR should not be used to dose medications. For further limitations of the eGFR please refer to the Physician Website or the National Kidney Disease Education Program website (www.nkdep.nih.gov). Performed By: #### L 301.0100, L301.0105, L301.0120 #### [facility] [address] [place] [address] eGFR nonAFR Antolin > 60 ml/Min/1.73m2 Normal [facility] Comment on above: Performed By: #### L 301.0100, L301.0105, L301.0120 #### [facility] [address] [place] [address] 49359 Globulin mass conc (S) 3.2 g/dL Normal 1.5-4.5 [facility] Comment on above: Performed By: #### L 301.0100, L301.0105, L301.0120 #### [facility] - [facility]ATORY [address] [place] [address] 71957 Glucose mass conc 166 mg/dL High 82-115 [facility] Comment on above: Performed By: #### L 301.0100, L301.0105, L301.0120 #### [facility] [address] [place] [address] 05776 Potassium molar conc 3.7 mmol/L Normal 3.5-5.0 [facility] Comment on above: Performed By: #### L 301.0100, L301.0105, L301.0120 #### [facility] - [facility] [address] [place] [address] 03574 Protein mass conc 5.5 g/dL Low 6.4-8.3 [facility] Comment on above: Performed By: #### L 301.0100, L301.0105, L301.0120 #### [facility] [address] [place] [address] 42267 Sodium molar conc 139 mmol/L Normal 135-145 [facility] Comment on above: Performed By: #### L 301.0100, L301.0105, L301.0120 #### [facility] [address] [place] [address] 73625 Urea nitrogen mass conc 12 mg/dL Normal 8-23 [facility] Comment on above: Performed By: #### L 301.0100, L301.0105, L301.0120 #### [facility] - [facility] [address] [place] [address] 92115 PTon 11-24-2017 INR Coag RelTime (PPP) 5.1 {INR} Critically high [facility] Comment on above: Result Comment: Ve rified by Repeat Testing COUMADIN PROTOCOLS INR values [...] systemic embolism) 2.0-3.0 AMI (to prevent recurrent ME) 2.5-3.5 Valvular heart disease 2.0-3.0 Atrial fibrillation 2.0-3.0 Mechanical prosthetic valves (high risk) 2.5-3.5 Bileaflet mechanical valve in aortic position 2.0-3.0 Presence of Lupus Anticoagulant or Antiphospholipid Antibodies 2.5-3.5 PANIC VALUE: GREATER THAN OR EQUAL TO 4.5 Performed By: #### L 301.0100, L301.0105, L301.0120 #### [facility] [address] [place] [address] 66264 Prothrombin time (PT) Coag time (PPP) 58.2 s High 9.4-12.5 [facility], [facility] Comment on above: Performed By: #### L 301.0100, L301.0105, L301.0120 #### - LABORATORY [address] [place] [address] 54187 PTTon 11-24-2017 aPTT Coag time (Bld) 70.3 s High 25.1-36.5 [facility] Comment on above: Result Comment: Hepa rin Protocol Therapeutic Range = 54.0-90.0 secs Performed By: #### L 301.0100, L301.0105, L301.0120 #### - LABORATORY [address] [place] [address] 45690 CBCon 11-23-2017 Basophils #/vol (Bld) 0.00 x10(3) Normal 0.00-0.10 [facility] Comment on above: Performed By: #### L 301.0100, L301.0105, L301.0120 #### [facility] - [facility]ORY [address] [place] [address] 66514 Basophils/100 WBC (Bld) 0.2 % Normal 0.0-1.0 [facility], [facility] Comment on above: Performed By: #### L 301.0100, L301.0105, L301.0120 #### [facility] [address] [place] [address] 46587 Eosinophils #/vol (Bld) 0.20 x10(3) Normal 0.00-0.54 [facility], [facility] Comment on above: Performed By: #### L 301.0100, L301.0105, L301.0120 #### - LABORATORY [address] [place] [address] 53041 Eosinophils/100 WBC (Bld) 2.5 % Normal 0.5-4.9 [facility], [facility] Comment on above: Performed By: #### L 301.0100, L301.0105, L301.0120 #### - LABORATORY [address] [place] [address] 50355 Erythrocyte distribution width Ratio (RBC) 14.4 % Normal 12.5-15.7 [facility], [facility] Comment on above: Performed By: #### L 301.0100, L301.0105, L301.0120 #### [facility] [address] [place] [address] 33459 Hematocrit Volume Fraction (Bld) 28.1 % Low 36.0-48.0 [facility], [facility] Comment on above: Performed By: #### L 301.0100, L301.0105, L301.0120 #### - LABORATORY [address] [place] [address] 51022 Hemoglobin mass conc (Bld) 9.3 g/dL Low 12.0-16.0 [facility], [facility] Comment on above: Performed By: #### L 301.0100, L301.0105, L301.0120 #### [facility] [address] [place] [address] 72327 Lymphocytes #/vol (Bld) 0.70 x10(3) Low 1.00-3.50 [facility], [facility] Comment on above: Performed By: #### L 301.0100, L301.0105, L301.0120 #### [facility] [address] [place] [address] 31403 Lymphocytes/100 WBC (Bld) 7.4 % Low 16.0-48.0 [facility], [facility] Comment on above: Performed By: #### L 301.0100, L301.0105, L301.0120 #### [facility] [address] [place] [address] 99892 MCH Entitic mass (RBC) 29.3 pg Normal 28.5-32.9 [facility] Comment on above: Performed By: #### L 301.0100, L301.0105, L301.0120 #### [facility] - [facility]ATORY [address] [place] [address] 03428 MCHC mass conc (RBC) 33.2 g/dL Normal 33.0-36.0 [facility] Comment on above: Performed By: #### L 301.0100, L301.0105, L301.0120 #### [facility] - LABORATORY [address] [place] [address] 37257 MCV Entitic volume (RBC) 88.2 fL Normal 80.0-99.0 [facility], [facility] Comment on above: Performed By: #### L 301.0100, L301.0105, L301.0120 #### [facility] - [facility]ORY [address] [place] [address] 66196 Monocytes #/vol (Bld) 0.70 x10(3) Normal 0.30-0.80 [facility] Comment on above: Performed By: #### L 301.0100, L301.0105, L301.0120 #### [facility] - LAB[facility]ATORY [address] [place] [address] 90399 Monocytes/100 WBC (Bld) 7.7 % Normal 4.3-11.2 [facility], [facility] Comment on above: Performed By: #### L 301.0100, L301.0105, L301.0120 #### [facility] - [facility] [address] [place] [address] 60600 Neutrophils #/vol (Bld) 7.50 x10(3) High 1.40-6.50 [facility], [facility] Comment on above: Performed By: #### L 301.0100, L301.0105, L301.0120 #### [facility] - [facility] [address] [place] [address] 60134 Neutrophils/100 WBC (Bld) 82.2 % High 45.0-73.0 [facility], [facility] Comment on above: Performed By: #### L 301.0100, L301.0105, L301.0120 #### - LABORATORY [address] [place] [address] 63778 Platelet mean volume Entitic volume (Bld) 9.0 fL Normal 7.5-9.5 [facility], [facility] Comment on above: Performed By: #### L 301.0100, L301.0105, L301.0120 #### [facility] [address] [place] [address] 13193 Platelets #/vol (Bld) 374 X10(3) Normal 150-450 Uni [facility] Comment on above: Performed By: #### L 301.0100, L301.0105, L301.0120 #### [facility] [address] [place] [address] 62989 RBC #/vol (Bld) 3.19 x10(6) Low 3.30-5.00 [facility], [facility] Comment on above: Performed By: #### L 301.0100, L301.0105, L301.0120 #### - LABORATORY [address] [place] [address] 71320 WBC #/vol (Bld) 9.1 x10(3) Normal 4.5-10.0 [facility], [facility] Comment on above: Performed By: #### L 301.0100, L301.0105, L301.0120 #### - LABORATORY [address] [place] [address] 12790 CHEST (TWO VIEWS) - CXRon CHEST (TWO VIEWS) - CXR [address] [address] Name: HANH VELASCON Phys: JOSE FLORES D.O. : 35 Age: 82 Sex: F Acct: [id number] Loc: [facility] Exam Date: 11/23/17 Status: ADM IN Radiology No.: [id number] Unit Number: [id number] Exam # Type/Exam [id number] RAD / CHEST (TWO VIEWS) - CXR CHEST RADIOGRAPH, TWO VIEWS HISTORY: Pneumonia, shortness of breath COMPARISON: 11/20/17 FINDINGS: Improved aeration of the right lung base noted. Small effusion with adjacent atelectasis noted on the right. The cardiomediastinal shilloutte is stable. No pneumothorax. IMPRESSION: 1. slightly improved right lung base aeration. Professional interpretation provided by [facility], [place] on [id number]. Thank you for this referral. < > Reported By: ELLE CERDA M.D. Signed In [employer] By: ELLE CERDA M.D. << Signature on File>> Reported By: ELLE CERDA M.D. Signed By: ELLE CERDA M.D. Tests performed at: [address] [address] Normal [facility] PTon 11-23-2017 INR Coag RelTime (PPP) 2.3 {INR} Normal [facility] Comment on above: Result Comment: CO UMADIN PROTOCOLS INR values are generated for use in patients on coumadin. INR values stabilize 7 days after the start of coumadin or changes in coumadin dosage. The usual TARGET/INR range is: INDICATION INR RANGE Prophylaxis/treatment of: Venous Thrombosis, Pulmonary Embolism 2.0-3.0 Prevention of systemic embolism from: Tissue heart valves 2.0-3.0 Acute myocardial infarction (to prevent systemic embolism) 2.0-3.0 AMI (to prevent recurrent ME) 2.5-3.5 Valvular heart disease 2.0-3.0 Atrial fibrillation 2.0-3.0 Mechanical prosthetic valves (high risk) 2.5-3.5 Bileaflet mechanical valve in aortic position 2.0-3.0 Presence of Lupus Anticoagulant or Antiphospholipid Antibodies 2.5-3.5 PANIC VALUE: GREATER THAN OR EQUAL TO 4.5 Performed By: #### L 301.0100, L301.0105, L301.0120 #### [facility] - LABORATORY [address] [place] [address] 69075 Prothrombin time (PT) Coag time (PPP) 26.3 s High 9.4-12.5 [facility], [facility] Comment on above: Performed By: #### L 301.0100, L301.0105, L301.0120 #### [facility] - LABORATORY [address] [place] [address] 62151 PTTon 11-23-2017 aPTT Coag time (Bld) 53.4 s High 25.1-36.5 [facility] Comment on above: Result Comment: Hepa rin Protocol Therapeutic Range = 54.0-90.0 secs Performed By: #### L 301.0100, L301.0105, L301.0120 #### [facility] - LABORATORY [address] [place] [address] 46245 CBCon 11-22-2017 Basophils #/vol (Bld) 0.00 x10(3) Normal 0.00-0.10 [facility] Comment on above: Order Comment: TO BE COLLECTED LATEROK To Combine Draws Per RN Performed By: #### L 100.0010 #### ML [facility] [address] [place] [address] 52944 Basophils/100 WBC (Bld) 0.2 % Normal 0.0-1.0 [facility] Comment on above: Order Comment: TO BE COLLECTED LATEROK To Combine Draws Per RN Performed By: #### L 100.0010 #### [facility] [address] [place] [address] 68998 Eosinophils #/vol (Bld) 0.80 x10(3) High 0.00-0.54 [facility] Comment on above: Order Comment: TO BE COLLECTED LATEROK To Combine Draws Per RN Performed By: #### L 100.0010 #### [facility] [address] [place] [address] 40081 Eosinophils/100 WBC (Bld) 11.1 % High 0.5-4.9 [facility] Comment on above: Order Comment: TO BE COLLECTED LATEROK To Combine Draws Per RN Performed By: #### L 100.0010 #### [facility] [address] [place] [address] 17408 Erythrocyte distribution width Ratio (RBC) 14.2 % Normal 12.5-15.7 [facility] Comment on above: Order Comment: TO BE COLLECTED LATEROK To Combine Draws Per RN Performed By: #### L 100.0010 #### [facility] [address] [place] [address] 05999 Hematocrit Volume Fraction (Bld) 28.2 % Low 36.0-48.0 [facility] Comment on above: Order Comment: TO BE COLLECTED LATEROK To Combine Draws Per RN Performed By: #### L 100.0010 #### [facility] [address] [place] [address] 42945 Hemoglobin mass conc (Bld) 9.6 g/dL Low 12.0-16.0 [facility] Comment on above: Order Comment: TO BE COLLECTED LATEROK To Combine Draws Per RN Performed By: #### L 100.0010 #### [facility] [address] [place] [address] 65205 Lymphocytes #/vol (Bld) 1.20 x10(3) Normal 1.00-3.50 [facility] Comment on above: Order Comment: TO BE COLLECTED LATEROK To Combine Draws Per RN Performed By: #### L 100.0010 #### [facility] [address] [place] [address] 70595 Lymphocytes/100 WBC (Bld) 16.2 % Normal 16.0-48.0 [facility] Comment on above: Order Comment: TO BE COLLECTED LATEROK To Combine Draws Per RN Performed By: #### L 100.0010 #### [facility] [address] [place] [address] 50934 MCH Entitic mass (RBC) 30.0 pg Normal 28.5-32.9 [facility] Comment on above: Order Comment: TO BE COLLECTED LATEROK To Combine Draws Per RN Performed By: #### L 100.0010 #### ML [facility] [address] [place] [address] 66251 MCHC mass conc (RBC) 34.1 g/dL Normal 33.0-36.0 [facility] Comment on above: Order Comment: TO BE COLLECTED LATEROK To Combine Draws Per RN Performed By: #### L 100.0010 #### [facility] [address] [place] [address] 41241 MCV Entitic volume (RBC) 88.1 fL Normal 80.0-99.0 [facility] Comment on above: Order Comment: TO BE COLLECTED LATEROK To Combine Draws Per RN Performed By: #### L 100.0010 #### [facility] - LABORATORY [address] [place] [address] 78432 Monocytes #/vol (Bld) 0.60 x10(3) Normal 0.30-0.80 [facility] Comment on above: Order Comment: TO BE COLLECTED LATEROK To Combine Draws Per RN Performed By: #### L 100.0010 #### [facility] [address] [place] [address] 29335 Monocytes/100 WBC (Bld) 7.6 % Normal 4.3-11.2 [facility] Comment on above: Order Comment: TO BE COLLECTED LATEROK To Combine Draws Per RN Performed By: #### L 100.0010 #### [facility] [address] [place] [address] 76799 Neutrophils #/vol (Bld) 4.70 x10(3) Normal 1.40-6.50 [facility] Comment on above: Order Comment: TO BE COLLECTED LATEROK To Combine Draws Per RN Performed By: #### L 100.0010 #### [facility] [address] [place] [address] 27194 Neutrophils/100 WBC (Bld) 64.9 % Normal 45.0-73.0 [facility] Comment on above: Order Comment: TO BE COLLECTED LATEROK To Combine Draws Per RN Performed By: #### L 100.0010 #### [facility] [address] [place] [address] 88093 Platelet mean volume Entitic volume (Bld) 8.0 fL Normal 7.5-9.5 [facility] Comment on above: Order Comment: TO BE COLLECTED LATEROK To Combine Draws Per RN Performed By: #### L 100.0010 #### [facility] [address] [place] [address] 82811 Platelets #/vol (Bld) 372 X10(3) Normal 150-450 Uni [facility] Comment on above: Order Comment: TO BE COLLECTED LATEROK To Combine Draws Per RN Performed By: #### L 100.0010 #### [facility] [address] [place] [address] 11708 RBC #/vol (Bld) 3.20 x10(6) Low 3.30-5.00 [facility] Comment on above: Order Comment: TO BE COLLECTED LATEROK To Combine Draws Per RN Performed By: #### L 100.0010 #### [facility] [address] [place] [address] 66030 WBC #/vol (Bld) 7.3 x10(3) Normal 4.5-10.0 [facility] Comment on above: Order Comment: TO BE COLLECTED LATEROK To Combine Draws Per RN Performed By: #### L 100.0010 #### [facility] [address] [place] [address] 73195 PTon 11-22-2017 INR Coag RelTime (PPP) 1.3 {INR} Normal [facility] Comment on above: Order Comment: TO BE COLLECTED LATEROK To Combine Draws Per RN Result Comment: CO UMADIN PROTOCOLS INR values are generated for use in patients on coumadin. INR values stabilize 7 days after the start of coumadin or changes in coumadin dosage. The usual TARGET/INR range is: INDICATION INR RANGE Prophylaxis/treatment of: Venous Thrombosis, Pulmonary Embolism 2.0-3.0 Prevention of systemic embolism from: Tissue heart valves 2.0-3.0 Acute myocardial infarction (to prevent systemic embolism) 2.0-3.0 AMI (to prevent recurrent ME) 2.5-3.5 Valvular heart disease 2.0-3.0 Atrial fibrillation 2.0-3.0 Mechanical prosthetic valves (high risk) 2.5-3.5 Bileaflet mechanical valve in aortic position 2.0-3.0 Presence of Lupus Anticoagulant or Antiphospholipid Antibodies 2.5-3.5 PANIC VALUE: GREATER THAN OR EQUAL TO 4.5 Performed By: #### L 100.0010 #### [facility] [address] [place] [address] 87518 Prothrombin time (PT) Coag time (PPP) 14.9 s High 9.4-12.5 [facility] Comment on above: Order Comment: TO BE COLLECTED LATEROK To Combine Draws Per RN Performed By: #### L 100.0010 #### [facility] [address] [place] [address] 28661 PTTon 11-22-2017 aPTT Coag time (Bld) 89.7 s High 25.1-36.5 [facility] Comment on above: Result Comment: Hepa rin Protocol Therapeutic Range = 54.0-90.0 secs Performed By: #### L 301.0100, L301.0105, L301.0120 #### [facility] [address] [place] [address] 70251 aPTT Coag time (Bld) 85.2 s High 25.1-36.5 [facility] Comment on above: Result Comment: Hepa rin Protocol Therapeutic Range = 54.0-90.0 secs Performed By: #### L 301.0100, L301.0105, L301.0120 #### [facility] - [facility] [address] [place] [address] 43805 aPTT Coag time (Bld) 199.9 s Critically high 25.1-36.5 [facility] Comment on above: Result Comment: Ve rified by Repeat Testing Heparin Protocol Therapeutic Range = 54.0-90.0 secs Performed By: #### L 100.0010 #### [facility] [address] [place] [address] 42859 BMPon 11-21-2017 Anion gap molar conc 17.0 mmol/L Normal 15-22 [facility] Comment on above: Order Comment: TO BE COLLECTED LATERSpecimen Drawn Below IV Performed By: #### L 100.0010 #### [facility] - [facility] [address] [place] [address] 49878 Calcium mass conc 8.3 mg/dL Low 8.8-10.2 [facility] Comment on above: Order Comment: TO BE COLLECTED LATERSpecimen Drawn Below IV Performed By: #### L 100.0010 #### [facility] [address] [place] [address] 43103 Chloride molar conc 108 mmol/L High 98-107 [facility] Comment on above: Order Comment: TO BE COLLECTED LATERSpecimen Drawn Below IV Performed By: #### L 100.0010 #### [facility] [address] [place] [address] 78307 CO2 molar conc 20 mmol/L Low 22-29 [facility] Comment on above: Order Comment: TO BE COLLECTED LATERSpecimen Drawn Below IV Performed By: #### L 100.0010 #### [facility] [address] [place] [address] 93640 Creatinine mass conc 0.96 mg/dL High 0.50-0.90 [facility] Comment on above: Order Comment: TO BE COLLECTED LATERSpecimen Drawn Below IV Performed By: #### L 100.0010 #### ML [facility] [address] [place] [address] 46396 eGFR if AFR ANTOLIN > 60 ml/min/1.73m2 Normal [facility] Comment on above: Order Comment: TO BE COLLECTED LATERSpecimen Drawn Below IV Result Comment: eGFR >= 60 Indicates normal kidney function. * eGFR IS AN ESTIMATE * (AFR ANTOLIN = ) (non-AFR AM = NON-) MDRD calculation used in the eGFR should not be used to dose medications. For further limitations of the eGFR please refer to the Physician Website or the National Kidney Disease Education Program website (www.nkdep.nih.gov). Performed By: #### L 100.0010 #### [facility] [facility] [address] [place] [address] 07067 eGFR nonAFR Antolin 56 Normal [facility] Comment on above: Order Comment: TO BE COLLECTED LATERSpecimen Drawn Below IV Performed By: #### L 100.0010 #### ML [facility] [address] [place] [address] 82038 Glucose mass conc 98 mg/dL Normal 82-115 [facility], [facility] Comment on above: Order Comment: TO BE COLLECTED LATERSpecimen Drawn Below IV Performed By: #### L 100.0010 #### [facility] [address] [place] [address] 43579 Potassium molar conc 4.0 mmol/L Normal 3.5-5.0 [facility] Comment on above: Order Comment: TO BE COLLECTED LATERSpecimen Drawn Below IV Performed By: #### L 100.0010 #### ML - LABORATORY [address] [place] [address] 42183 Sodium molar conc 141 mmol/L Normal 135-145 [facility], [facility] Comment on above: Order Comment: TO BE COLLECTED LATERSpecimen Drawn Below IV Performed By: #### L 100.0010 #### ML - LABORATORY [address] [place] [address] 97612 Urea nitrogen mass conc 13 mg/dL Normal 8-23 [facility] Comment on above: Order Comment: TO BE COLLECTED LATERSpecimen Drawn Below IV Performed By: #### L 100.0010 #### ML - LABORATORY [address] [place] [address] 69705 CBCon 11-21-2017 Basophils #/vol (Bld) 0.00 x10(3) Normal 0.00-0.10 [facility] Comment on above: Order Comment: TO BE COLLECTED LATERSpecimen Drawn Below IV Performed By: #### L 200.1602, L200.1642 #### ML - LABORATORY [address] [place] [address] 94084 Basophils/100 WBC (Bld) 0.7 % Normal 0.0-1.0 [facility] Comment on above: Order Comment: TO BE COLLECTED LATERSpecimen Drawn Below IV Performed By: #### L 200.1602, L200.1642 #### ML - LABORATORY [address] [place] [address] 45561 Eosinophils #/vol (Bld) 0.60 x10(3) High 0.00-0.54 [facility] Comment on above: Order Comment: TO BE COLLECTED LATERSpecimen Drawn Below IV Performed By: #### L 200.1602, L200.1642 #### ML - LABORATORY [address] [place] [address] 10069 Eosinophils/100 WBC (Bld) 9.1 % High 0.5-4.9 [facility] Comment on above: Order Comment: TO BE COLLECTED LATERSpecimen Drawn Below IV Performed By: #### L 200.1602, L2.2 #### ML - LABORATORY [address] [place] [address] 41800 Erythrocyte distribution width Ratio (RBC) 14.4 % Normal 12.5-15.7 [facility] Comment on above: Order Comment: TO BE COLLECTED LATERSpecimen Drawn Below IV Performed By: #### L 200.1602, L200.1642 #### ML - LABORATORY [address] [place] [address] 35898 Hematocrit Volume Fraction (Bld) 31.7 % Low 36.0-48.0 [facility] Comment on above: Order Comment: TO BE COLLECTED LATERSpecimen Drawn Below IV Performed By: #### L 200.160, L2.1641 #### ML - LABORATORY [address] [place] [address] 40010 Hemoglobin mass conc (Bld) 10.4 g/dL Low 12.0-16.0 [facility] Comment on above: Order Comment: TO BE COLLECTED LATERSpecimen Drawn Below IV Performed By: #### L 200.160, L2.1641 #### ML - LABORATORY [address] [place] [address] 76371 Lymphocytes #/vol (Bld) 1.60 x10(3) Normal 1.00-3.50 [facility] Comment on above: Order Comment: TO BE COLLECTED LATERSpecimen Drawn Below IV Performed By: #### L 200.160, L2 #### ML - LABORATORY [address] [place] [address] 96779 Lymphocytes/100 WBC (Bld) 23.0 % Normal 16.0-48.0 [facility] Comment on above: Order Comment: TO BE COLLECTED LATERSpecimen Drawn Below IV Performed By: #### L 200.160, L2.1641 #### [facility] [address] [place] [address] 87878 MCH Entitic mass (RBC) 29.5 pg Normal 28.5-32.9 [facility] Comment on above: Order Comment: TO BE COLLECTED LATERSpecimen Drawn Below IV Performed By: #### L 200.160, L2 #### ML - LABORATORY [address] [place] [address] 47445 MCHC mass conc (RBC) 32.7 g/dL Low 33.0-36.0 [facility] Comment on above: Order Comment: TO BE COLLECTED LATERSpecimen Drawn Below IV Performed By: #### L 200.1602, L2.1641 #### [facility] [address] [place] [address] 60134 MCV Entitic volume (RBC) 90.4 fL Normal 80.0-99.0 [facility] Comment on above: Order Comment: TO BE COLLECTED LATERSpecimen Drawn Below IV Performed By: #### L 200.1602, #### ML - LABORATORY [address] [place] [address] 96184 Monocytes #/vol (Bld) 0.60 x10(3) Normal 0.30-0.80 [facility] Comment on above: Order Comment: TO BE COLLECTED LATERSpecimen Drawn Below IV Performed By: #### L 200.1602, #### ML - LABORATORY [address] [place] [address] 53905 Monocytes/100 WBC (Bld) 9.1 % Normal 4.3-11.2 [facility] Comment on above: Order Comment: TO BE COLLECTED LATERSpecimen Drawn Below IV Performed By: #### L 200.1602, #### ML - LABORATORY [address] [place] [address] 83094 Neutrophils #/vol (Bld) 4.10 x10(3) Normal 1.40-6.50 [facility] Comment on above: Order Comment: TO BE COLLECTED LATERSpecimen Drawn Below IV Performed By: #### L 200.1602, L2 #### [facility] [address] [place] [address] 44138 Neutrophils/100 WBC (Bld) 58.1 % Normal 45.0-73.0 [facility] Comment on above: Order Comment: TO BE COLLECTED LATERSpecimen Drawn Below IV Performed By: #### L 200.1602, L200.1642 #### ML - LABORATORY [address] [place] [address] 94171 Platelet mean volume Entitic volume (Bld) 8.3 fL Normal 7.5-9.5 [facility] Comment on above: Order Comment: TO BE COLLECTED LATERSpecimen Drawn Below IV Performed By: #### L 200.1602, L200.1642 #### ML - LABORATORY [address] [place] [address] 16889 Platelets #/vol (Bld) 353 X10(3) Normal 150-450 [facility] Comment on above: Order Comment: TO BE COLLECTED LATERSpecimen Drawn Below IV Performed By: #### L 200.1602, L200.1642 #### ML - LABORATORY [address] [place] [address] 43060 RBC #/vol (Bld) 3.51 x10(6) Normal 3.30-5.00 [facility] Comment on above: Order Comment: TO BE COLLECTED LATERSpecimen Drawn Below IV Performed By: #### L 200.1602, L200.1642 #### ML - LABORATORY [address] [place] [address] 12691 WBC #/vol (Bld) 7.0 x10(3) Normal 4.5-10.0 [facility] Comment on above: Order Comment: TO BE COLLECTED LATERSpecimen Drawn Below IV Performed By: #### L 200.1602, L200.1642 #### ML - LABORATORY [address] [place] [address] 37363 CONSULTATIONon 11-21-2017 [place] [address] HEALTH INFORMATION MANAGEMENT CONSULTATION Patient: SG VELASCONTINOKHURRAM M.D. [id number] [age] F Status: DIS IN [facility] 2222-A DATE OF CONSULTATION 11/21/[address] Rosa Denise REASON FOR CONSULTATION Evaluation and management of patient with urinary tract infection with E. coli, ESBL positive HISTORY OF PRESENT ILLNESS This is a very pleasant 82 year-old white female who resides outside [place] with a past medical history of hypothyroidism, [...] to see this interesting patient in consultation. 12/07/17 0834 ___ KHURRAM TORIBIO M.D. cc: KHURRAM TORIBIO M.D.; ROSA DENISE M.D. << Signature on File>> Reported By: KHURRAM TORIBIO M.D. Signed By: KHURRAM TORIBIO M.D. Tests performed at: [place] [id number] [place] [address] Normal [facility] ED REPORTon 11-21-2017 ED REPORT [facility] [place] [address] HEALTH INFORMATION MANAGEMENT EMERGENCY DEPARTMENT REPORT Patient: SG VELASCO WINIFRED RUSH as dictated by BIRGIDA BRUCE [id number] [age] F Status: ADM IN [facility] 2-A Date of Service: 11/19/17 CHIEF COMPLAINT Fever and altered mental status. HISTORY OF PRESENT ILLNESS According to EMS, the patient was out driving today down in the [place] area and was pulled over by PD [...] episodes of Afib. He went her to [facility] where they basically discharged her home [...] bedside awaiting transfer to the floor. ADMIT 11/23/17 1843 WINIFRED RUSH cc: WINIFRED RUSH << Signature on File>> Reported By: WINIFRED RUSH Signed By: WINIFRED RUSH Tests performed at: [address] [address] Normal [facility] EMERGENCY DEPARTMENT REPORTo n 11-21-2017 EMERGENCY DEPARTMENT [place] [address] HEALTH INFORMATION MANAGEMENT EMERGENCY DEPARTMENT REPORT Patient: SG VELASCO MATTHEW H Machelle [id number] [age] F Status: DIS IN [facility] 2222-A Date of Service: 11/19/17 CHIEF COMPLAINT/HISTORY [...] will be dictated by Winifred Rush. IMPRESSION 11/29/17 1216 VANCE ESTRELLA D.O. cc: VANCE ESTRELLA D.O. << Signature on File>> Reported By: VANCE ESTRELLA D.O. Signed By: VANCE ESTRELLA D.O. Tests performed at: [place] [address] Normal [facility] MAGNESIUMon 11-21-2017 Magnesium mass conc 1.9 mg/dL Normal 1.6-2.4 [facility] Comment on above: Order Comment: TO BE COLLECTED LATERSpecimen Drawn Below IV Performed By: #### L 100.0010 #### ML - LABORATORY [address] [place] [address] 08375 PTTon 11-21-2017 aPTT Coag time (Bld) 34.4 s Normal 25.1-36.5 [facility] Comment on above: Result Comment: Hepa rin Protocol Therapeutic Range = 54.0-90.0 secs Performed By: #### L 100.0010 #### ML - LABORATORY [address] [place] [address] 29970 aPTT Coag time (Bld) 59.4 s High 25.1-36.5 [facility] Comment on above: Result Comment: Hepa rin Protocol Therapeutic Range = 54.0-90.0 secs Performed By: #### L 100.0010 #### ML [facility] [address] [place] [address] 48283 aPTT Coag time (Bld) 96.3 s High 25.1-36.5 [facility] Comment on above: Order Comment: TO BE COLLECTED LATERSpecimen Drawn Below IV Result Comment: Hepa rin Protocol Therapeutic Range = 54.0-90.0 secs Performed By: #### L 100.0010 #### ML - LABORATORY [address] [place] [address] 69881 aPTT Coag time (Bld) 106.7 s High 25.1-36.5 [facility] Comment on above: Result Comment: Hepa rin Protocol Therapeutic Range = 54.0-90.0 secs Performed By: #### L 200.1602, L200.1642 #### [facility] [address] [place] [address] 22849 TSHon 11-21-2017 Thyrotropin Qn 2.58 uIU/mL Normal 0.45-4.50 [facility] Comment on above: Order Comment: TO BE COLLECTED LATERSpecimen Drawn Below IV Performed By: #### L 100.0010 #### [facility] [address] [place] [address] 93335 [facility] in IRon 11-20-2017 60106 [facility] in IR [address] [address] Name: SG VELASCO Phys: VARUN MANDEL M.D. : 35 Age: 82 Sex: F Acct: [id number] Loc: ICU Exam Date: 11/20/17 Status: ADM IN Radiology No.: [id number] Unit Number: [id number] Exam # Type/Exam [id number] IR / [id number] [facility] in IR Intraoperative Fluoroscopy CLINICAL STATEMENT: PE FLUOROSCOPY: 3 minutes AIR KERMA (mGy): 65 BODY PART: IVC IMPRESSION: Documentation of fluoroscopy. Please see intraoperative notes for details. Professional interpretation provided by [facility], [place] on RAC-PC-69. Thank you for this referral. < > Reported By: ELLE CERDA M.D. Signed In NovaPro By: ELLE CERDA M.D. << Signature on File>> Reported By: ELLE CERDA M.D. Signed By: ELLE CERDA M.D. Tests performed at: [address] [address] Normal [facility] AFB CUL/SMRon 11-20-2017 AFB CUL/SMR ACID FAST RESULT NEGATIVE FOR ACID FAST BACILLUS ACID FAST SMEAR FROM CONCENTRATED SPECIMEN: NEGATIVE RESULT RECEIVED FROM [facility] 11/22/17 FINAL: NO GROWTH OF ACID FAST BACILLI. REPORT RECEIVED FROM [facility] 01/19/18. SEND CULTURE SENT TO [facility]. FINAL REPORT TO FOLLOW [facility] Comment on above: Performed By: #### L 100.0010 #### ML - LABORATORY [address] [place] [address] 13400 BF AMYLASEon 11-20-2017 Amylase enzyme act/vol 20 U/L Normal [facility] Comment on above: Result Comment: Body Fluid Souce: PLEURAL Fluid to serum amylase ratio should be 1.0. Ratio >1.0 can indicate acute pancreatitis, chronic pancreatic pleural effusion, esophageal rupture, malignancy, pancreatic pseudo- cyst, trauma, gastroduodenal perforation, mesenteric vein thrombosis, intestinal strangulation or necrosis. (Not routinely tested on pleural fluid.) Performed By: #### L 200.1602, L200.1642 #### ML - LABORATORY [address] [place] [address] 26246 BF CELL CTon 11-20-2017 BF MONOS 4 % [facility] Comment on above: Performed By: #### L 200.1602, L200.1642 #### [facility] [address] [place] [address] 23098 BF SEGS 19 % [facility] Comment on above: Performed By: #### L 200.1602, L200.1642 #### - LABORATORY [address] [place] [address] [facility] Comment on above: Performed By: #### L 200.1602, L200.1642 #### - LABORATORY [address] [place] [address] 86696 BF-MESO FEW [facility] Comment on above: Performed By: #### L 200.1602, L200.1642 #### - LABORATORY [address] [place] [address] 24004 Lymphocytes/100 WBC (Bld) 77 % [facility] Comment on above: Performed By: #### L 200.1602, L200.1642 #### ML - LABORATORY [address] [place] [address] 03247 BF SOURCE PLEURAL [facility] Comment on above: Performed By: #### L 200.1602, L200.1642 #### - LABORATORY [address] [place] [address] 94166 BF-TNC 3596 /MM3 High 0-199 [facility] Comment on above: Result Comment: TNC IS THE TOTAL NUCLEATED CELL COUNT TO INCLUDE PRIMARILY WBC'S AND POSSIBLY OTHER NUCLEATED CELL TYPES SUCH TISSUE CELLS OR NUCLEATED RBC'S THAT COULD BE PRESENT IN BODY FLUIDS. Performed By: #### L 200.1602, L2.2 #### [facility] [address] [place] [address] 20039 RBC #/vol (Bld) 1829 /MM3 High 0-0 [facility] Comment on above: Performed By: #### L 200.1602, L2 #### ML [facility] [address] [place] [address] 05858 GLUon 11-20-2017 BF GLU 119 mg/dL [facility] Comment on above: Result Comment: Body Fluid Souce: PLEURAL Fluid glucose should be similar to that of serum glucose. Low fluid glucose values, < 60 mg/dL, exist in rheumatoid arthritis, empyema, tuberculous pleurisy or peritonitis, malignant effusion, Lupus pleuritis and esophageal rupture. Performed By: #### L 200.1602, L2 #### [facility] - LABORATORY [address] [place] [address] 65884 LDHon 11-20-2017 BF LDH 271 U/L [facility] Comment on above: Result Comment: Body Fluid Souce: PLEURAL Fluid to serum LDH ratio > 0.6 indicates an exudate. Fluid LDH > 1000 U/L is found in empyema, rheumatoid pleurisy, pleural paragonimiasis, and sometimes malignancy. Performed By: #### L 200.1602, L2.2 #### ML [facility] [address] [place] [address] 76640 PROTEINon 11-20-2017 Protein mass conc 2.6 g/dL [facility] Comment on above: Result Comment: Body Fluid Souce: PLEURAL Fluid to serum protein ratio < 0.5 indicates transudate. Fluid to serum protein ratio >0.5 indicates exudate. Pleural fluid protein of 7.0 or higher indicates Waldenstrom's macroglobulinemia and multiple myeloma. Performed By: #### L 200.1602, L200.1642 #### ML - LABORATORY [address] [place] [address] 46026 BF-PHon 11-20-2017 BF-PH 7.375 Normal [facility] Comment on above: Result Comment: Body Fluid Souce: PLEURAL Fluid pH from 7.4 to 7.55 indicates transudate. Fluid pH from 7.3 to 7.45 indicates exudate. Pleural fluid acidosis (where fluid pH <7.3 with a normal arterial pH) exists in rheumatoid arhtritis, empyema, tuberculous pleurisy or peritonitis, malignant effusion, Lupus pleuritis and esophageal rupture. Performed By: #### L 200.1602, L200.1642 #### ML - LABORATORY [address] [place] [address] 36792 BFGSon 11-20-2017 BFGS GRAM STAIN RESULT NO ORGANISMS SEEN MODERATE WBC MODERATE RBC ORGANISM 1: NO GROWTH Normal [facility] Comment on above: Performed By: #### L 200.1602, L200.1642 #### - LABORATORY [address] [place] [address] 73706 [facility] Anion gap molar conc 16.9 mmol/L Normal 15-22 [facility] Comment on above: Performed By: #### L 100.0440 #### ML [facility] [address] [place] [address] 36685 Calcium mass conc 7.8 mg/dL Low 8.8-10.2 [facility] Comment on above: Performed By: #### L 100.0440 #### [facility] [address] [place] [address] 97609 Chloride molar conc 108 mmol/L High 98-107 [facility] Comment on above: Performed By: #### L 100.0440 #### [facility] [address] [place] [address] 49310 CO2 molar conc 18 mmol/L Low 22-29 [facility] Comment on above: Performed By: #### L 100.0440 #### - LABORATORY [address] [place] [address] 58269 Creatinine mass conc 1.08 mg/dL High 0.50-0.90 [facility] Comment on above: Performed By: #### L 100.0440 #### [facility] [address] [place] [address] 25577 eGFR if AFR ANTOLIN 59 [facility] Comment on above: Result Comment: eGFR >= 60 Indicates normal kidney function. * eGFR IS AN ESTIMATE * (AFR ANTOLIN = ) (non-AFR AM = NON-) MDRD calculation used in the eGFR should not be used to dose medications. For further limitations of the eGFR please refer to the Physician Website or the National Kidney Disease Education Program website (www.nkdep.nih.gov). Performed By: #### L 100.0440 #### [facility] [address] [place] [address] 43574 eGFR nonAFR Antolin 49 [facility] Comment on above: Performed By: #### L 100.0440 #### ML [facility] [address] [place] [address] 69653 Glucose mass conc 129 mg/dL High 82-115 [facility] Comment on above: Performed By: #### L 100.0440 #### [facility] [address] [place] [address] 34433 Potassium molar conc 3.9 mmol/L Normal 3.5-5.0 [facility] Comment on above: Performed By: #### L 100.0440 #### [facility] [address] [place] [address] 91621 Sodium molar conc 139 mmol/L Normal 135-145 [facility] Comment on above: Performed By: #### L 100.0440 #### [facility] [address] [place] [address] 82808 Urea nitrogen mass conc 17 mg/dL Normal 8-23 [facility] Comment on above: Performed By: #### L 100.0440 #### [facility] [address] [place] [address] 04820 CHEST-ONE VIEW ONLY - CXR1on 11-20-2017 CHEST-ONE VIEW ONLY - CXR1 [address] [address] Name: SG VELASCO Phys: KRISTIN BOLES M.D. : 35 Age: 82 Sex: F Acct: [id number] Loc: ICU Exam Date: 11/20/17 Status: ADM IN Radiology No.: [id number] Unit Number: [id number] Exam # Type/Exam [id number] RAD / CHEST-ONE VIEW ONLY - CXR1 [...] Professional interpretation provided by [facility] [place], [place] on RAC-PC-60. Thank you for this referral. < > Reported By: KRISTIN BOLES M.D. Signed In NovaPro By: KRISTIN BOLES M.D. << Signature on File>> Reported By: KRISTIN BOLES M.D. Signed By: KRISTIN BOLES M.D. Tests performed at: [address] [address] Normal [facility] CONSULTATIONon 11-20-[address] [place] [address] HEALTH INFORMATION MANAGEMENT CONSULTATION Patient: PAULA VELASCOLYN VARUN MANDEL M.D. [id number] [age] F Status: ADM IN ICU [id number] DATE OF CONSULTATION 11/20/[address] Rivero REASON FOR REFERRAL Possible IVC filter placement. [...] wished to proceed. All questions were answered. 11/20/17 6771 ___ VARUN MANDEL M.D. cc: VARUN MANDEL M.D. << Signature on File>> Reported By: VARUN MANDEL M.D. Signed By: VARUN MANDEL M.D. Tests performed at: [address] [id number] Normal [facility] [place] [address] HEALTH INFORMATION MANAGEMENT CONSULTATION Patient: SG VELASCO WILLIAM Matheus Carty [id number] [age] F Status: ADM IN ICU [id number] CONSULTATION/ADMIT CODE LEVEL III PRIMARY CARE PROVIDER Dr. Weber in [place]. HISTORY Sg is an 82-year-old female who [...] had a right knee replacement arthroplasty in [place] a few months ago. Her additional history [...] and left greater than right hilar adenopathy. 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 HEENT [...] to get the thoracentesis done later today. 11/20/17 0950 ___ JOSE FLORES D.O. cc: ROSA DENISE M.D.; JOSE FLORES D.O. << Signature on File>> Reported By: JOSE FLORES D.O. Signed By: JOSE FLORES D.O. Tests performed at: [place] [address] [place], [place] [address] Normal [facility] ECHO COMPLETEon 11-20-2017 [place] [address] HEALTH INFORMATION MANAGEMENT CARDIOLOGY REPORT Patient: SG VELASCO WAYNE Brittney Carty [id number] [age] F Status: DIS IN [facility] 2222-A Exam # Type/Exam [id number] CARD / ECHO COMPLETE ECHOCARDIOGRAM REPORT DATE OF SERVICE 11/20/[address] 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 HEIGHT 64 WEIGHT 184 BLOOD PRESSURE [...] pressure 35 mmHg. Diastolic dysfunction is seen. 12/04/17 1814 CANDIDO COOK D.O. cc: ROSA DENISE M.D. << Signature on File>> Reported By: CANDIDO COOK D.O. Signed By: CANDIDO COOK D.O. Tests performed at: [address] [address] [facility] EMERGENCY DEPARTMENT REPORTo n 11-20-2017 EMERGENCY [place]PARTMENT [place] [address] HEALTH INFORMATION MANAGEMENT EMERGENCY DEPARTMENT REPORT Patient: SG VELASCO ASHLEIGH REECE M.D. [id number] [age] F Status: ADM IN [facility] 2222-A Date of Service: 11/19/17 CHIEF COMPLAINT [...] the patient and her family here. ADMIT 11/23/17 1642 ASHLEIGH REECE M.D. cc: ASHLEIGH REECE M.D. << Signature on File>> Reported By: ASHLEIGH REECE M.D. Signed By: ASHLEIGH REECE M.D. Tests performed at: [address] [address] [facility] FC OTHERon 11-20-2017 FC OTHER FUNGUS CULTURE OTHER NO FUNGUS ISOLATED [facility] Comment on above: Performed By: #### L 200.1602, L200.1642 #### [facility] [address] [place] [address]99 HISTORY AND PHYSICALon 11-20 HISTORY [place] [address] HEALTH INFORMATION MANAGEMENT HISTORY AND PHYSICAL Patient: SG VELASCO COLLIN D M.D. [id number] [age] F Status: ADM IN ICU [id number] DATE OF ADMISSION 11/20/2017 CHIEF COMPLAINT Mental [...] and hypothyroidism as she normally takes them. 11/20/17 0609 ROSA DENISE M.D. cc: ROSA DENISE M.D. << Signature on File>> Reported By: ROSA DENISE M.D. Signed By: ROSA DENISE M.D. Tests performed at: [place] [address] Normal [facility] LACTIC ACIDon 11-20-2017 Lactate molar conc 1.5 mmol/L Normal 0.5-2.0 [facility] Comment on above: Order Comment: TO BE COLLECTED LATER Performed By: #### L 200.6722, L200.1642 #### [facility] [address] [place] [address] 19467 NON-GYNECOLOGICALon 11-21-19 18 NON-GYNECOLOGICAL Source of the specimen? PL Specimen Description+ Pleural PLEURAL FLUID - RIGHT MATERIALS PREPARED & EXAMINED AIR DRIED SMEAR................ .....1 SPRAY FIXED SMEAR................ ...1 THIN PREP................. ..........1 CELL BLOCK................ ..........2 SPECIAL STAINS............... .......Y GMS/PAS -------- INTERPRETATION/RESULT : NO MALIGNANT CELLS DETECTED. DESCRIPTION: Volume............300 ml Fixed.............N Bloody............N Mucoid............Y Color.............GAILA LEA CLINICAL HISTORY: The patient has a history [...] *Electronically Signed* ANTOINE CURRY M.D. 11/22/17 1407 -------- Normal [facility] Comment on above: Performed By: #### L 301.0100, L301.0105, L301.0120 #### [facility] [address] [place] [address] OPERATIVE REPORTon 8 [place] [address] HEALTH INFORMATION MANAGEMENT OPERATIVE REPORT Patient: PAULA VELASCOVARUN CHIU M.D. [id number] [age] F Status: ADM IN ICU [id number] DATE OF PROCEDURE 11/20/2017 PREOPERATIVE DIAGNOSIS DVT with pulmonary embolus, lung mass, pleural effusion, relative contraindication to anticoagulation. POSTOPERATIVE DIAGNOSIS DVT with pulmonary embolus, lung mass, pleural effusion, relative contraindication to anticoagulation. PROCEDURE 1. Placement of an IVC filter ([place]) in the infrarenal position via the right [...] good hemostasis. She tolerated the procedure well. 11/22/17 1732 VARUN MANDEL M.D. cc: VARUN MANDEL M.D. << Signature on File>> Reported By: VARUN MANDEL M.D. Signed By: VARUN MANDEL M.D. Tests performed at: [address] [address] Normal [facility] PRO-BNPon 11-20-2017 Natriuretic peptide B mass conc (Bld) 3745 pg/mL Normal [facility] Comment on above: Order Comment: ADD O N Result Comment: HF U NLIKELY: NT-PRO BNP <300 pg/mL HF LIKELY: NT-PRO BNP >450 pg/mL (AGE <50) NT-PRO BNP >900 pg/mL (AGE 50-75) NT-PRO BNP >1800 pg/mL (AGE >75) HF VERY LIKELY: NT-PRO BNP >10,000 pg/mL SOURCE: [employer] FOR PRO-BNP; CRITICAL PATHWAYS IN CARDIOLOGY VOLUME 3, NUMBER 4; APRIL 2004 Performed By: #### L 200.1602, L200.1642 #### [facility] [address] [place] [address] 25497 PTon 11-20-2017 INR Coag RelTime (PPP) 1.2 {INR} Normal [facility] Comment on above: Result Comment: CO UMADIN PROTOCOLS INR values are generated for use in patients on coumadin. INR values stabilize 7 days after the start of coumadin or changes in coumadin dosage. The usual TARGET/INR range is: INDICATION INR RANGE Prophylaxis/treatment of: Venous Thrombosis, Pulmonary Embolism 2.0-3.0 Prevention of systemic embolism from: Tissue heart valves 2.0-3.0 Acute myocardial infarction (to prevent systemic embolism) 2.0-3.0 AMI (to prevent recurrent ME) 2.5-3.5 Valvular heart disease 2.0-3.0 Atrial fibrillation 2.0-3.0 Mechanical prosthetic valves (high risk) 2.5-3.5 Bileaflet mechanical valve in aortic position 2.0-3.0 Presence of Lupus Anticoagulant or Antiphospholipid Antibodies 2.5-3.5 PANIC VALUE: GREATER THAN OR EQUAL TO 4.5 Performed By: #### L 200.1602, L200.1642 #### [facility] - [facility] [address] [place] [address] Prothrombin time (PT) Coag time (PPP) 13.6 s High 9.4-12.5 [facility] Comment on above: Performed By: #### L 200.1602, L200.1642 #### [facility] [address] [place] [address] 76684 INR Coag RelTime (PPP) 1.3 {INR} Normal [facility] Comment on above: Order Comment: COMME NTS: Physician Reminder - 30 ml/Kg IV crystalloid if Lactate >= 4 for Sepsis. Result Comment: CO UMADIN PROTOCOLS INR values are generated for use in patients on coumadin. INR values stabilize 7 days after the start of coumadin or changes in coumadin dosage. The usual TARGET/INR range is: INDICATION INR RANGE Prophylaxis/treatment of: Venous Thrombosis, Pulmonary Embolism 2.0-3.0 Prevention of systemic embolism from: Tissue heart valves 2.0-3.0 Acute myocardial infarction (to prevent systemic embolism) 2.0-3.0 AMI (to prevent recurrent ME) 2.5-3.5 Valvular heart disease 2.0-3.0 Atrial fibrillation 2.0-3.0 Mechanical prosthetic valves (high risk) 2.5-3.5 Bileaflet mechanical valve in aortic position 2.0-3.0 Presence of Lupus Anticoagulant or Antiphospholipid Antibodies 2.5-3.5 PANIC VALUE: GREATER THAN OR EQUAL TO 4.5 Performed By: #### L 100.0440 #### [facility] [address] [place] [address] 12155 Prothrombin time (PT) Coag time (PPP) 14.1 s High 9.4-12.5 [facility] Comment on above: Order Comment: COMME NTS: Physician Reminder - 30 ml/Kg IV crystalloid if Lactate >= 4 for Sepsis. Performed By: #### L 100.0440 #### [facility] - [facility] [address] [place] [address] 91859 PTTon 11-20-2017 aPTT Coag time (Bld) 27.3 s Normal 25.1-36.5 [facility] Comment on above: Result Comment: Hepa rin Protocol Therapeutic Range = 54.0-90.0 secs Performed By: #### L 200.1602, L200.1642 #### [facility] [address] [place] [address] 95238 aPTT Coag time (Bld) 30.6 s Normal 25.1-36.5 [facility] Comment on above: Result Comment: Hepa rin Protocol Therapeutic Range = 54.0-90.0 secs Performed By: #### L 100.0440 #### [facility] [address] [place] [address] 80645 aPTT Coag time (Bld) 105.2 s High 25.1-36.5 [facility] Comment on above: Result Comment: Hepa rin Protocol Therapeutic Range = 54.0-90.0 secs Performed By: #### L 100.0440 #### [facility] [address] [place] [address] 04406 TROPONIN Ton 11-20-2017 Troponin T.cardiac mass conc ug/L Normal 0-0.010 [facility] Comment on above: Order Comment: TO BE COLLECTED LATER Performed By: #### L 200.1602, L200.1642 #### [facility] [address] [place] [address] 45343 URINALYSISon 11-20-2017 Bilirubin Ql (U) MODERATE Normal NEGATIVE [facility] Comment on above: Order Comment: Urine Specimen Source+ CLEAN CATCH Performed By: #### L 200.3000, L200.3190 #### [facility] [address] [place] [address] 89709 Color Nom (U) YELLOW Normal YELLOW [facility] Comment on above: Order Comment: Urine Specimen Source+ CLEAN CATCH Performed By: #### L 200.2999, L200.3190 #### [facility] [address] [place] [address] 61657 Glucose Ql (U) Negative Normal NEGATIVE [facility] Comment on above: Order Comment: Urine Specimen Source+ CLEAN CATCH Performed By: #### L 200.2999, L200.3190 #### [facility] [address] [place] [address] 38307 Hemoglobin Ql (U) TRACE-LYSED Normal NEGATIVE [facility] Comment on above: Order Comment: Urine Specimen Source+ CLEAN CATCH Performed By: #### L 200.2999, L200.3190 #### [facility] [address] [place] [address] 02972 Leukocyte esterase Test strip Ql (U) TRACE Normal NEGATIVE [facility] Comment on above: Order Comment: Urine Specimen Source+ CLEAN CATCH Performed By: #### L .2999, L200.3190 #### [facility] [address] [place] [address] 23861 Nitrite Ql (U) Negative Normal NEGATIVE [facility] Comment on above: Order Comment: Urine Specimen Source+ CLEAN CATCH Performed By: #### L 200.2999, L200.3190 #### [facility] [address] [place] [address] 00436 pH (U) 5.5 [pH] Normal 5.0-8.0 [facility] Comment on above: Order Comment: Urine Specimen Source+ CLEAN CATCH Performed By: #### L 200.2999, L200.3190 #### [facility] [address] [place] [address] 92350 Protein Ql (U) 30 MG/DL Normal NEGATIVE [facility] Comment on above: Order Comment: Urine Specimen Source+ CLEAN CATCH Performed By: #### L 200.2999, L200.3190 #### [facility] [address] [place] [address] 91510 URINE APPEARANC SL CLOUDY Normal CLEAR [facility] Comment on above: Order Comment: Urine Specimen Source+ CLEAN CATCH Performed By: #### L 200.2999, L200.3190 #### [facility] - [facility] [address] [place] [address] URINE KETONE TRACE Normal NEGATIVE [facility] Comment on above: Order Comment: Urine Specimen Source+ CLEAN CATCH Performed By: #### L 200.3000, L200.3190 #### [facility] [address] [place] [address] 27826 URINE SPECIFIC 1.025 Normal 1.001-1.035 [facility] Comment on above: Order Comment: Urine Specimen Source+ CLEAN CATCH Performed By: #### L 200.3000, L200.3190 #### [facility] [address] [place] [address] 68566 URINE UROBILINO >=8.0 Normal 0.2-1.0 [facility] Comment on above: Order Comment: Urine Specimen Source+ CLEAN CATCH Performed By: #### L 200.3000, L200.3190 #### [facility] [address] [place] [address] 15996 URINE MICROSCOPon 11-20-2017 Bacteria LM.HPF #/area (Urine sed) 2+ Normal NEGATIVE [facility] Comment on above: Order Comment: Urine Specimen Source+ CLEAN CATCH Performed By: #### L 200.3000, L200.3190 #### [facility] [address] [place] [address] 75345 RBC #/vol (U) 1-3 Normal 0-2 [facility] Comment on above: Order Comment: Urine Specimen Source+ CLEAN CATCH Performed By: #### L 200.3000, L200.3190 #### [facility] [address] [place] [address] 51310 SQUAMOUS OCC Normal NEGATIVE [facility] Comment on above: Order Comment: Urine Specimen Source+ CLEAN CATCH Performed By: #### L 200.3000, L200.3190 #### [facility] [address] [place] [address] 17176 WBC #/vol (U) 6-10 Normal 0-5 [facility] Comment on above: Order Comment: Urine Specimen Source+ CLEAN CATCH Performed By: #### L 200.3000, L200.3190 #### [facility] [address] [place] [address]137 THORA PUNCT PLEURAL CAVon 11-20-2017 US THORA PUNCT PLEURAL CAV [address] [address] Name: SG VELASCO Phys: JOSE FLORES D.O. : 35 Age: 82 Sex: F Acct: [id number] Loc: ICU Exam Date: 11/20/17 Status: ADM IN Radiology No.: [id number] Unit Number: [id number] Exam # Type/Exam [id number] US / US THORA PUNCT PLEURAL CAV [...] Professional interpretation provided by [facility] [place], [place] on RAC-PC-60. Thank you for this referral. < > Reported By: KRISTIN BOLES M.D. Signed In NovaPro By: KRISTIN BOLES M.D. << Signature on File>> Reported By: KRISTIN BOLES M.D. Signed By: KRISTIN BOLES M.D. Tests performed at: [address] [address] Normal [facility] VENOUS DUPLEX OF BILATERAL L EGon 11-20-2017 VENOUS DUPLEX [place] [address] Vascular Lab - [facility] Accredited in: Extracranial Cerebrovascular, Visceral Vascular, Vascular Screening & Peripheral Arterial & Venous Testing Admittor REPORT Patient: HAIMPAULA BESTRANDY Velez Dr: JOSE FLORES D.O. [id number] [age] F Status: ADM IN ICU [id number] Reason for Visit: MULTIPLE RIGHT PE/RLL PNEUMONIA NEW ONSET AFIB Service Date: 11/20/17 Access#: [id number] Procedure: VENOUS DUPLEX OF BILATERAL LEG Conclusions: [...] Report. Full Report available via Link to [employer] in [employer] Viewer . Electronically Signed by: VARUN MANDEL M.D. 11/22/17 0931 VARUN MANDEL M.D. cc: JOSE FLORES D.O. << Signature on File>> Reported By: VARUN MANDEL M.D. Signed By: VARUN MANDEL M.D. Tests performed at: [place] [address] [facility] Comment on above: Performed By: #### L 200.1602, L200.1642 #### [facility] [address] [place] [address] No Growth [facility] Comment on above: Performed By: #### L 200.1602, L200.1642 #### ML [facility] [address] [place] [id number] [place], [place] [address]on 11-19-2017 Anion gap molar conc 18.2 mmol/L Normal 15-22 [facility] Comment on above: Performed By: #### L 100.0010 #### ML [facility] [address] [place] [address] Calcium mass conc 8.6 mg/dL Low 8.8-10.2 [facility] Comment on above: Performed By: #### L 100.0010 #### [facility] - [facility] [address] [place] [address] 00703 Chloride molar conc 105 mmol/L Normal 98-107 [facility] Comment on above: Performed By: #### L 100.0010 #### [facility] [address] [place] [address] 24567 CO2 molar conc 20 mmol/L Low 22-29 [facility] Comment on above: Performed By: #### L 100.0010 #### [facility] - [facility] [address] [place] [address] 53260 Creatinine mass conc 1.23 mg/dL High 0.50-0.90 [facility] Comment on above: Performed By: #### L 100.0010 #### ML [facility] [address] [place] [address] 62032 eGFR if AFR ANTOLIN 51 [facility] Comment on above: Result Comment: eGFR >= 60 Indicates normal kidney function. * eGFR IS AN ESTIMATE * (AFR ANTOLIN = ) (non-AFR AM = NON-) MDRD calculation used in the eGFR should not be used to dose medications. For further limitations of the eGFR please refer to the Physician Website or the National Kidney Disease Education Program website (www.nkdep.nih.gov). Performed By: #### L 100.0010 #### [facility] - [facility] [address] [place] [address] 34493 eGFR nonAFR Antolin 42 [facility] Comment on above: Performed By: #### L 100.0010 #### [facility] - [facility] [address] [place] [address] 77106 Glucose mass conc 130 mg/dL High 82-115 [facility] Comment on above: Performed By: #### L 100.0010 #### [facility] - [facility] [address] [place] [address] 56751 Potassium molar conc 4.2 mmol/L Normal 3.5-5.0 [facility] Comment on above: Performed By: #### L 100.0010 #### [facility] - [facility] [address] [place] [address] 59474 Sodium molar conc 139 mmol/L Normal 135-145 [facility] Comment on above: Performed By: #### L 100.0010 #### [facility] - [facility] [address] [place] [address] 09370 Urea nitrogen mass conc 20 mg/dL Normal 8-23 [facility] Comment on above: Performed By: #### L 100.0010 #### [facility] - [facility] [address] [place] [address] 27768 CBCon 11-19-2017 Basophils #/vol (Bld) 0.10 x10(3) Normal 0.00-0.10 [facility] Comment on above: Performed By: #### L 200.0010 #### [facility] - [facility] [address] [place] [address] 00190 Basophils/100 WBC (Bld) 1.0 % Normal 0.0-1.0 [facility] Comment on above: Performed By: #### L 200.0010 #### [facility] - [facility] [address] [place] [address] 06403 Eosinophils #/vol (Bld) 0.10 x10(3) Normal 0.00-0.54 [facility] Comment on above: Performed By: #### L 200.0010 #### [facility] - [facility] [address] [place] [address] 85701 Eosinophils/100 WBC (Bld) 1.3 % Normal 0.5-4.9 [facility] Comment on above: Performed By: #### L 200.0010 #### [facility] - [facility] [address] [place] [address] 73331 Erythrocyte distribution width Ratio (RBC) 14.2 % Normal 12.5-15.7 [facility] Comment on above: Performed By: #### L 200.0010 #### [facility] - [facility] [address] [place] [address] 32240 Hematocrit Volume Fraction (Bld) 30.2 % Low 36.0-48.0 [facility] Comment on above: Performed By: #### L 200.0010 #### [facility] - [facility] [address] [place] [address] 91299 Hemoglobin mass conc (Bld) 10.1 g/dL Low 12.0-16.0 [facility] Comment on above: Performed By: #### L 200.0010 #### [facility] - [facility] [address] [place] [address] 84909 Lymphocytes #/vol (Bld) 1.00 x10(3) Normal 1.00-3.50 [facility] Comment on above: Performed By: #### L 200.0010 #### ML [facility] [address] [place] [address] 03807 Lymphocytes/100 WBC (Bld) 10.6 % Low 16.0-48.0 [facility] Comment on above: Performed By: #### L 200.0010 #### ML [facility] [address] [place] [address] 99570 MCH Entitic mass (RBC) 29.6 pg Normal 28.5-32.9 [facility] Comment on above: Performed By: #### L 200.0010 #### ML [facility] [address] [place] [address] 75443 MCHC mass conc (RBC) 33.6 g/dL Normal 33.0-36.0 [facility] Comment on above: Performed By: #### L 200.0010 #### ML [facility] [address] [place] [address] 35445 MCV Entitic volume (RBC) 88.2 fL Normal 80.0-99.0 [facility] Comment on above: Performed By: #### L 200.0010 #### [facility] [address] [place] [address] 34783 Monocytes #/vol (Bld) 1.00 x10(3) High 0.30-0.80 [facility] Comment on above: Performed By: #### L 200.0010 #### [facility] [address] [place] [address] 17838 Monocytes/100 WBC (Bld) 10.4 % Normal 4.3-11.2 [facility] Comment on above: Performed By: #### L 200.0010 #### [facility] [address] [place] [address] 25658 Neutrophils #/vol (Bld) 7.30 x10(3) High 1.40-6.50 [facility] Comment on above: Performed By: #### L 200.0010 #### [facility] [address] [place] [address] 26479 Neutrophils/100 WBC (Bld) 76.7 % High 45.0-73.0 [facility] Comment on above: Performed By: #### L 200.0010 #### [facility] [address] [place] [address] 25231 Platelet mean volume Entitic volume (Bld) 8.2 fL Normal 7.5-9.5 [facility] Comment on above: Performed By: #### L 200.0010 #### [facility] [address] [place] [address] 48430 Platelets #/vol (Bld) 333 X10(3) Normal 150-450 [facility] Comment on above: Performed By: #### L 200.0010 #### [facility] [address] [place] [address] 19313 RBC #/vol (Bld) 3.42 x10(6) Normal 3.30-5.00 [facility] Comment on above: Performed By: #### L 200.0010 #### [facility] [address] [place] [address] 87728 WBC #/vol (Bld) 9.5 x10(3) Normal 4.5-10.0 [facility] Comment on above: Performed By: #### L 200.0010 #### ML [facility] [address] [place] [address] 29746 [facility] CK enzyme act/vol 89 U/L Normal 26-192 [facility] Comment on above: Result Comment: Rela tive Index is not calculated as it is only applicable to CK values greater than or equal to 192 IU/L. 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 Thank you for this referral. < > Reported By: SIMA ALARCON M.D. Signed In NovaPro By: SIMA ALARCON M.D. << Signature on File>> Reported By: SIMA ALARCON M.D. Signed By: SIMA ALARCON M.D. Tests performed at: [address] [address] Normal [facility] CT CHEST FOR PE W/ CONTon CT CHEST FOR PE W/ CONT [address] [address] Name: SG VELASCO Phys: VICTOR MANUELWINIFRED NATURALIZATION EXAMINERMehran : 35 Age: 82 Sex: F Acct: [id number] Loc: ED Exam Date: 11/19/17 Status: [facility] Radiology No.: [id number] Unit Number: [id number] Exam # Type/Exam [id number] CT / CT CHEST FOR PE W/ [...] Professional interpretation provided by [facility] [place], [place] on CloudAptitude-PC-72. Thank you for this referral. < > Reported By: SIMA ALARCON M.D. Signed In NovaPro By: SIMA ALARCON M.D. << Signature on File>> Reported By: SIMA ALARCON M.D. Signed By: SIMA ALARCON M.D. Tests performed at: [address] [address] Normal [facility] LACTIC ACIDon 11-19-2017 Lactate molar conc 1.2 mmol/L Normal 0.5-2.0 [facility] Comment on above: Order Comment: COMME NTS: Physician Reminder - 30 ml/Kg IV crystalloid if Lactate >= 4 for Sepsis. Performed By: #### L 100.0440 #### [facility] [address] [place] [address] 61413 PTon 11-19-2017 INR Coag RelTime (PPP) 1.2 {INR} Normal [facility] Comment on above: Result Comment: CO UMADIN PROTOCOLS INR values are generated for use in patients on coumadin. INR values stabilize 7 days after the start of coumadin or changes in coumadin dosage. The usual TARGET/INR range is: INDICATION INR RANGE Prophylaxis/treatment of: Venous Thrombosis, Pulmonary Embolism 2.0-3.0 Prevention of systemic embolism from: Tissue heart valves 2.0-3.0 Acute myocardial infarction (to prevent systemic embolism) 2.0-3.0 AMI (to prevent recurrent ME) 2.5-3.5 Valvular heart disease 2.0-3.0 Atrial fibrillation 2.0-3.0 Mechanical prosthetic valves (high risk) 2.5-3.5 Bileaflet mechanical valve in aortic position 2.0-3.0 Presence of Lupus Anticoagulant or Antiphospholipid Antibodies 2.5-3.5 PANIC VALUE: GREATER THAN OR EQUAL TO 4.5 Performed By: #### L 200.1602, L200.1642 #### [facility] - LABORATORY [address] [place] [id number] Prothrombin time (PT) Coag time (PPP) 13.8 s High 9.4-12.5 Formerly [facility] Comment on above: Performed By: #### L 200.1602, L200.1642 #### [facility] - LABORATORY [address] [place] [address]4538 PTTon 11-19-2017 aPTT Coag time (Bld) 25.8 s Normal 25.1-36.5 [facility] Comment on above: Result Comment: Hepa rin Protocol Therapeutic Range = 54.0-90.0 secs Performed By: #### L 200.1602, [id number] #### [facility] - LABORATORY [address] [place] [id number] TROPONIN Ton 11-19-2017 Troponin T.cardiac mass conc ug/L Normal 0-0.010 [facility]ly [facility] Comment on above: Performed By: #### L 301.0100, L301.0105, L301.0120 #### [facility] [address] [place] [id number] UCon 11-19-2017 UC REQUIRES CONTACT PRECAUTIONS ESBL INDICATES THAT THIS STRAIN MAY BE CLINICALLY RESISTANT As of 11/21/17 0717: Antibiotic therapy may not be appropriate based on patient's susceptibility results: ESCHERICHIA COLI - LEVOFLOXACIN: R ORGANISM 1: ESCHERICHIA COLI COLONY COUNT > 100,000 ESCHERICHIA COLI: M.I.C. REACTION TRIMETH/SULFAMETHOXAZ OLE >2/38 R AMOXACILLIN/CLAVULANA TE 16/8 I AMPICILLIN >16 R* AMPICILLIN/SULBACTAM >16/8 R AZTREONAM >16 ESBL CEFAZOLIN >4 N/R CEFEPIME >16 R* CEFOTAXIME >32 ESBL CEFTAZIDIME >16 ESBL CEFTRIAXONE >32 ESBL CEFUROXIME >16 R* CIPROFLOXACIN >2 R GENTAMICIN >8 R IMIPENEM <=1 S NITROFURANTOIN <=32 S LEVOFLOXACIN >4 R TETRACYCLINE >8 R TICARCILLIN/K CLAV'ATE <=16 S TOBRAMYCIN >8 R AMIKACIN <=16 S ERTAPENEM <=0.5 S PIPERACILLIN/TAZOBACT AM <=16 S S = Susceptible I = Intermediate R = Resistant R*=RESISTANT (ORGANISM HAS INTRINSIC OR INDUCED RESISTANCE) N/R= NOT REPORTED TREMAINE= BETA-LACTAMASE POSITIVE EBL?= EXTENDED SPECTRUM BETA-LACTAMASE Normal [facility] Comment on above: Performed By: #### L 100.3710 #### [facility] [address] [place] [address] Office Visiton 12-01-2016 Dietary management education, guidance, and counseling (procedure) yes Invalid Interpretation Code [employer] Work Phone: [phone] Documentation of current medications (procedure) Done Invalid Interpretation Code [employer] Work Phone: [phone] Protein mass conc Done [employer] Work Phone: [phone] Clinical Lists Update: Prelo reimbursement counselor 11-28-2016 Left ventricular Ejection fraction 70 % Invalid Interpretation Code [employer] Work Phone: [phone]) Lab Report: CBC W/Diff, Auto matedon 07-13-2016 Basophils/100 leukocytes 1.0 % Invalid Interpretation Code 0-1 [employer] Work Phone: [phone] Basophils/100 WBC (Bld) 1.0 % 0-1 [employer] Work Phone: [phone] Eosinophils/100 leukocytes 3.9 % Invalid Interpretation Code 0-5 [employer] Work Phone: [phone] Eosinophils/100 WBC (Bld) 3.9 % 0-5 [employer] Work Phone: [phone] Erythrocyte distribution width Ratio (RBC) 43.2 fL 35.1-43.9 [employer] Work Phone: [phone] Erythrocyte distribution width Ratio (RBC) 13.0 % 11.6-14.6 [employer] Work Phone: [phone] Erythrocytes (RBC) 4.28 10*6/uL Invalid Interpretation Code 4.2-5.4 [employer] Work Phone: [phone] Hematocrit (HCT) 39.6 % Invalid Interpretation Code 37-47 [employer] Work Phone: [phone] Hematocrit Volume Fraction (Bld) 39.6 % 37-47 [employer] Work Phone: [phone] Hemoglobin mass conc (Bld) 13.1 g/dL Invalid Interpretation Code 12.0-15.0 [employer] Work Phone: [phone] Immature granulocytes #/vol (Bld) 0.200 % 0.0-0.9 [employer] Work Phone: [phone] immature granulocytes, percentage of total cells, blood 0.200 % Invalid Interpretation Code 0.0-0.9 [employer] Work Phone: [phone] Lymphocytes 2.48 X10 3/UL Invalid Interpretation Code 0.83-4.51 [employer] Work Phone: [phone]) Lymphocytes #/vol (Bld) 2.48 X10 3/UL 0.83-4.51 [employer] Work Phone: [phone] Lymphocytes/100 leukocytes 30.1 % Invalid Interpretation Code 19-41 [employer] Work Phone: [phone] Lymphocytes/100 WBC (Bld) 30.1 % 19- [employer] Work Phone: [phone] MCH 30.6 pg Invalid Interpretation Code 27.0-32.0 [employer] Work Phone: [phone] Entitic mass (RBC) 30.6 pg 27.0-32.0 [facility] Work Phone: [phone] MCHC 33.1 G/GL Invalid Interpretation Code 32-36 [facility] Work Phone: [phone] MCHC mass conc (RBC) 33.1 G/GL 32-[address] [facility] Work Phone: [phone] MCV 92.5 fL Invalid Interpretation Code 81-99 [facility] Work Phone: [phone] MCV Entitic volume (RBC) 92.5 fL 81-99 [facility] Work Phone: [phone] Monocytes/100 leukocytes 7.8 % Invalid Interpretation Code 0-10 [facility] Work Phone: [phone] Monocytes/100 WBC (Bld) 7.8 % 0-10 [facility] Work Phone: [phone] neutrophil count, blood 4.7 X10 3/UL Invalid Interpretation Code 2.0-7.7 [facility] Work Phone: [phone] Neutrophils #/vol (Bld) 4.7 X10 3/UL 2.0-7.7 [facility] Work Phone: [phone] Neutrophils/100 leukocytes 57.0 % Invalid Interpretation Code 47-70 [facility] Work Phone: [phone] Neutrophils/100 WBC (Bld) 57.0 % 47-70 [facility] Work Phone: [phone] Platelet mean volume Entitic volume (Bld) 10.2 fL 6.2-12.0 [facility] Work Phone: [phone] Platelets 321 10*3/mm3 Invalid Interpretation Code 150-450 [facility] Work Phone: [phone] Platelets #/vol (Bld) 321 10*3/mm3 150-450 [facility] Work Phone: [phone] PMV by Jerrod 10.2 fL Invalid Interpretation Code 6.2-12.0 [facility] Work Phone: [phone] RBC #/vol (Bld) 4.28 10*6/uL 4.2-5.4 [facility] Work Phone: [phone] RDW-CA 13.0 % Invalid Interpretation Code 11.6-14.6 [facility] Work Phone: [phone] red blood cell distribution width, size density 43.2 fL Invalid Interpretation Code 35.1-43.9 [facility] Work Phone: [phone] WBC #/vol (Bld) 8.2 10*3/uL 4.4-11.0 [facility] Work Phone: [phone] WBC (Leukocytes) 8.2 10*3/uL Invalid Interpretation Code 4.4-11.0 [facility] Work Phone: [phone] Lab Report: Comprehensive [facility] Profilon 07-13-2016 Albumin mass conc 3.5 g/dL Invalid Interpretation Code 3.4-5.0 [facility] Work Phone: [phone] Albumin/Globulin mass ratio 1 {ratio} Invalid Interpretation Code 0.9-2.4 [facility] Work Phone: [phone] Alkaline phosphatase (ALP) 69 U/L Invalid Interpretation Code 45-117 [facility] Work Phone: [phone] ALP enzyme act/vol (Bld) 69 U/L 45-117 [facility] Work Phone: [phone] ALT enzyme act/vol 17 U/L Invalid Interpretation Code 12-78 [facility] Work Phone: [phone] Anion gap 8 mmol/L Invalid Interpretation Code 5-15 [facility] Work Phone: [phone] Anion gap molar conc 8 mmol/L 5-[address] [facility] Work Phone: [phone] AST enzyme act/vol 18 U/L Invalid Interpretation Code 15-37 [facility] Work Phone: [phone] Bilirubin mass conc 0.40 mg/dL Invalid Interpretation Code 0.20-1.00 [facility] Work Phone: [phone] Calcium mass conc 8.7 mg/dL Invalid Interpretation Code 8.5-10.1 [facility] Work Phone: [phone] Chloride molar conc 105 mmol/L Invalid Interpretation Code 98-107 [facility] Work Phone: [phone] CO2 28.0 mmol/L Invalid Interpretation Code 21.0-32.0 [facility] [email or web address] Work Phone: [phone] CO2 ppres (BldV) 28.0 mmol/L 21.0-32.0 [facility] [employer] Work Phone: [phone] Creatinine mass conc 0.87 mg/dL Invalid Interpretation Code 0.55-1.02 [employer] Work Phone: [phone] eGFR (non-black) 80 mL/min/{1.73_m2} Invalid Interpretation Code >60 [facility] Work Phone: [phone] EST GFR - AA 80 mL/min >60 [employer] Work Phone: [phone] GFR/1.73 sq M predicted among non-blacks MDRD vol rate/area (S/P/Bld) 66 mL/min/{1.73_m2} Invalid Interpretation Code >60 [employer] Work Phone: [phone] Globulin 3.4 g/dL Invalid Interpretation Code 2.3-3.5 [facility] [employer] Work Phone: [phone] Globulin mass conc (S) 3.4 g/dL 2.3-3.5 [facility] Work Phone: [phone] Glucose 96 mg/dL Invalid Interpretation Code 70-110 [employer] Work Phone: [phone] Glucose mass conc 96 mg/dL 70-110 [facility] Work Phone: [phone] Potassium molar conc 3.9 mmol/L Invalid Interpretation Code 3.5-5.1 [facility] [employer] Work Phone: [phone]) Protein mass conc 6.9 g/dL Invalid Interpretation Code 6.4-8.2 [employer] Work Phone: [phone] Sodium molar conc 141 mmol/L Invalid Interpretation Code 136-145 [employer] Work Phone: [phone] Urea nitrogen mass conc 16 mg/dL Invalid Interpretation Code 7-18 [facility] [email or web address] Work Phone: [phone] Urea nitrogen/Creatinine mass ratio 18.4 RATIO Invalid Interpretation Code 10-20 [employer] Work Phone: [phone]) Lab Report: Lipid Profileon 07-13-2016 Cholesterol in HDL mass conc 46 mg/dL Invalid Interpretation Code [facility] Work Phone: [phone] Cholesterol in LDL mass conc 122 mg/dL Invalid Interpretation Code 0-130 [facility] Work Phone: [phone] Cholesterol mass conc 208 mg/dL High [address] [facility] Work Phone: [phone] Lipoprotein.pre-beta mass conc 40 mg/dL Invalid Interpretation Code 5-40 [facility] Work Phone: [phone] Triglyceride mass conc 200 mg/dL High [facility] Work Phone: [phone] Lab Report: Urinalysis, Rout ine (Dipstick)on 07-13-2016 Albumin Ql (U) Negative Negative [facility] Work Phone: [phone] Bilirubin Ql (U) Negative Negative [facility] Work Phone: [phone] Clarity Nom (U) Sl. Cloudy Invalid Interpretation Code Clear [facility] Work Phone: [phone] Color Nom (U) Yellow Invalid Interpretation Code Yellow [facility] Work Phone: [phone] Glucose Ql (U) Normal mg/dl Invalid Interpretation Code Normal [facility] Work Phone: [phone] Ketones mass conc (U) Negative Negative [facility] Work Phone: [phone] Leukocyte esterase Test strip Ql (U) 100 High Negative [facility] Work Phone: [phone] Nitrite Urine Positive High Negative [facility] Work Phone: [phone] Occult Blood, urine 10 High Negative [facility] Work Phone: [phone] OCCULT BLOOD-UR 10 High Negative [facility] Work Phone: [phone] pH (U) 6.0 [pH] 5.0 - 8.0 [facility] Work Phone: [phone] Specific gravity Refractometry Relative Density (U) 1.020 Invalid Interpretation Code 1.002-1.030 [facility] Work Phone: [phone] Urine, bilirubin presence Negative Invalid Interpretation Code Negative [facility] Work Phone: [phone] Urine, ketones presence Negative Invalid Interpretation Code Negative [employer] Work Phone: [phone] Urine, pH 6.0 [pH] Invalid Interpretation Code 5.0 - 8.0 [employer] Work Phone: [phone] Urine, protein Negative Invalid Interpretation Code Negative [employer] Work Phone: [phone] urobilinogen, urine, by dipstick Normal mg/dl Invalid Interpretation Code Normal [employer] Work Phone: [phone]) Office Visiton 06-13-2016 Protein mass conc Done [employer] Work Phone: [phone]) Office Visiton 12-08-2015 Tobacco smoking status NHIS Never smoker [employer] Work Phone: [phone] Tobacco use CPHS Never smoker Invalid Interpretation Code [employer] Phone: [phone] Office Visiton 06-08-2015 General cardiovascular disease 10Y risk [#] [place].Brittney'Agostbarbara 17 % Invalid Interpretation Code [employer] Work Phone: [phone] Office Visiton 12-01-2014 cardiac risk group B Invalid Interpretation Code [employer] Work Phone: [phone] Replaced Document: Kaycee Silvestre CG Observationson 12-01-2014 EKG QRS axis -9 deg [employer] Work Phone: [phone] electrocardiogram interpretation Sinus Rhythm WITHIN NORMAL LIMITS Invalid Interpretation Code [employer] Phone: [phone] GE use only - for [employer] import when terms are not otherwise specified 401 ms Invalid Interpretation Code [employer] Work Phone: [phone] Interpretation Sinus Rhythm WITHIN NORMAL LIMITS [employer] Work Phone: [phone] P [place] 46 deg [employer] Work Phone: [phone] P wave axis, electrocardiogram 46 deg Invalid Interpretation Code [employer] Work Phone: [phone] TN Interval 180 ms [employer] Work Phone: [phone] TN interval, electrocardiogram 180 ms Invalid Interpretation Code [employer] Work Phone: [phone] Pulse (Heart Rate) 70 /min Invalid Interpretation Code [employer] Work Phone: [phone] QRS axis, electrocardiogram -9 deg Invalid Interpretation Code [employer] Work Phone: [phone] QRS Duration 88 ms [employer] Work Phone: [phone] QRS duration, electrocardiogram 88 ms Invalid Interpretation Code [employer] Work Phone: [phone] QT Interval new path ms [employer] Work Phone: [phone] QT interval, electrocardiogram new path ms Invalid Interpretation Code [employer] Work Phone: [phone] QTc Marquez 401 ms [employer] Work Phone: [phone] T [place] 37 deg [employer] Work Phone: [phone] T wave axis, electrocardiogram 37 deg Invalid Interpretation Code [employer] Work Phone: [phone]) Lab Report: Liver Profileon 05-27-2014 Bilirubin.direct mass conc 0.08 mg/dL Invalid Interpretation Code 0.00-0.30 [employer] Work Phone: [phone]) Lab Report: Thyroid Stim Hor alicia (TSH)on 05-27-2014 Thyrotropin Qn 0.51 u[iU]/mL Invalid Interpretation Code 0.358-3.74 [employer] Work Phone: [phone]) Lab Report: MIACREon 10-24-2 014 Albumin DL <= 20 mg/L mass conc (U) < 5.0 mg/L Normal NO RANGE EST. [employer] Work Phone: [phone] Creatinine mass conc (U) 22.2 mg/dL Normal NO RANGE EST. [employer] Work Phone: [phone]) Lab Report: CBCD - copyon Absolute Neutrophil count 3.9 X10 3/UL Normal 2.0-7.7 [employer] Work Phone: [phone] ANC 3.9 X10 3/UL Normal 2.0-7.7 [employer] Work Phone: [phone] Replaced Document: [employer] E CG Observationson 11-11-2013 Pulse (Heart Rate) 406 ms Invalid Interpretation Code [employer] Work Phone: [phone] Bacteria identified Anaer cx Nom (Unsp spec) Anaerobic Culture Anaerobic cocci [facility] Work Phone: Bacteria identified Cx Nom ( Wound) Wound Culture Meth. resistant Staph. aureus [facility] Work Phone: Wound Culture Corynebacterium amycolatum [facility] Work Phone: [phone] Culture, urine Bacteria identified Cx Nom (U) Escherichia coli [facility] Work Phone: Gram stain for investigation of transfusion reaction Microscopic observation Gram stain Nom (Unsp spec) [facility] Work Phone: Vital Signs Date Time Vital Sign Value Performing Clinician Faci lity 09-01-2023 19:00-0400 Body temperature 97.6 [degF] [facility] 09-01-2023 19:00-0400 Diastolic blood pressure 47 mm[Hg] [facility] 09-01-2023 19:00-0400 Heart rate 97 /min [facility] 09-01-2023 19:00-0400 Respiratory rate 22 /min [facility] 09-01-2023 19:00-0400 SaO2% (BldA) [Mass fraction] 93 % [facility] 09-01-2023 19:00-0400 Systolic blood pressure 159 mm[Hg] [facility] 09-01-2023 15:05-0400 Body height 162.99 cm [facility] 09-01-2023 15:05-0400 Body mass index (BMI) [Ratio] 32.3 kg/m2 [facility] 09-01-2023 15:05-0400 Body weight 86.1 kg [facility] 10-20-2021 11:10-0400 Body mass index (BMI) [Ratio] 28.1 kg/m2 [facility] Work Phone: 10-20-2021 11:10-0400 Body temperature 97.2 [degF] [facility] Work Phone: 10-20-2021 11:10-0400 Diastolic blood pressure 84 mm[Hg] [facility] Work Phone: 10-20-2021 11:10-0400 Heart rate 69 /min [facility] Work Phone: 10-20-2021 11:10-0400 Systolic blood pressure 143 mm[Hg] [facility] Work Phone: 10-13-2021 09:44-0400 Body height 162.99 cm [facility] Work Phone: 10-13-2021 09:44-0400 Body mass index (BMI) [Ratio] 28.1 kg/m2 [facility] Work Phone: 10-13-2021 09:44-0400 Body temperature 96 [degF] [facility] Work Phone: 10-13-2021 09:44-0400 Body weight 74.84 kg [facility] Work Phone: 10-13-2021 09:44-0400 Diastolic blood pressure 60 mm[Hg] [facility] Work Phone: 10-13-2021 09:44-0400 Heart rate 82 /min [facility] Work Phone: 10-13-2021 09:44-0400 Respiratory rate 18 /min [facility] Work Phone: 10-13-2021 09:44-0400 Systolic blood pressure 101 mm[Hg] [facility] Work Phone: 07-15-2021 13:30-0500 Body temperature 97.8 [degF] [facility] Work Phone: 07-15-2021 13:30-0500 Diastolic blood pressure 70 mm[Hg] [facility] Work Phone: 07-15-2021 13:30-0500 Heart rate 95 /min [facility] Work Phone: 07-15-2021 13:30-0500 Respiratory rate 18 /min [facility] Work Phone: 07-15-2021 13:30-0500 SaO2% (BldA) [Mass fraction] 94 % [facility] Work Phone: 07-15-2021 13:30-0500 Systolic blood pressure 115 mm[Hg] [facility] Work Phone: 07-15-2021 03:17-0500 Body mass index (BMI) [Ratio] 32.2 kg/m2 [facility] Work Phone: 07-12-2021 16:34-0500 Body height 154.94 cm [facility] Work Phone: 07-12-2021 16:34-0500 Body weight 77.4 kg [facility] Work Phone: 07-12-2021 13:42-0500 Body temperature 97.2 [degF] [facility] Work Phone: 07-12-2021 13:42-0500 Diastolic blood pressure 75 mm[Hg] [facility] Work Phone: 07-12-2021 13:42-0500 Heart rate 84 /min [facility] Work Phone: 07-12-2021 13:42-0500 Respiratory rate 18 /min [facility] Work Phone: 07-12-2021 13:42-0500 SaO2% (BldA) [Mass fraction] 95 % [facility] Work Phone: 07-12-2021 13:42-0500 Systolic blood pressure 118 mm[Hg] [facility] Work Phone: 07-07-2021 13:08-0500 Body weight 77.7 kg [facility] Work Phone: 07-07-2021 12:54-0500 Body mass index (BMI) [Ratio] 32.3 kg/m2 [facility] Work Phone: 07-07-2021 11:43-0500 Body temperature 97.3 [degF] [facility] Work Phone: 07-07-2021 11:43-0500 Diastolic blood pressure 52 mm[Hg] [facility] Work Phone: 07-07-2021 11:43-0500 Heart rate 90 /min [facility] Work Phone: 07-07-2021 11:43-0500 Respiratory rate 18 /min [facility] Work Phone: 07-07-2021 11:43-0500 SaO2% (BldA) [Mass fraction] 95 % [facility] Work Phone: 07-07-2021 11:43-0500 Systolic blood pressure 99 mm[Hg] [facility] Work Phone: 07-07-2021 04:52-0500 Body weight 82.6 kg [facility] Work Phone: 07-05-2021 16:01-0500 Body mass index (BMI) [Ratio] 32.7 kg/m2 [facility] Work Phone: 06-15-2021 00:51-0500 Body mass index (BMI) [Ratio] 32.9 kg/m2 [facility] Work Phone: 04-14-2021 03:13-0500 Body mass index (BMI) [Ratio] 32.9 kg/m2 [facility] Work Phone: 12-01-2016 14:24-0400 BMI (Body Mass Index) 32.09 kg/m2 [facility] Work Phone: 12-01-2016 14:24-0400 BP Diastolic 80 mm[Hg] [facility] Work Phone: 12-01-2016 14:24-0400 BP Systolic 138 mm[Hg] [facility] Work Phone: 12-01-2016 14:24-0400 Height 162.56 cm [facility] Work Phone: 12-01-2016 14:24-0400 Pulse (Heart Rate) 86 /min [facility] Work Phone: 12-01-2016 14:24-0400 Respiratory Rate 20 /min [facility] Work Phone: 12-01-2016 14:24-0400 Weight 84.82 kg [facility] Work Phone: 07-21-2016 09:28-0500 BP Diastolic 82 mm[Hg] Ana Hankins RN [facility] Work Phone: 07-21-2016 09:28-0500 BP Systolic 160 mm[Hg] Ana Hankins RN [facility] Work Phone: 07-21-2016 09:28-0500 Pulse (Heart Rate) 72 /min Ana Hankins RN [facility] Work Phone: 07-21-2016 09:28-0500 Respiratory Rate 16 /min Ana Hankins RN [facility] Work Phone: 06-13-2016 13:00-0500 BMI (Body Mass Index) 31.75 kg/m2 [facility] Work Phone: 06-13-2016 13:00-0500 BSA (Body Surface Area) 1.89 m2 Ana Hankins RN [facility] Work Phone: 06-13-2016 13:00-0500 Height 162.56 cm Ana Hankins RN [employer] Work Phone: 06-13-2016 13:00-0500 Weight 83.92 kg Ana Hankins RN [employer] Work Phone: 12-01-2014 09:22-0400 Heart rate 70 /min Ana Hankins RN [employer] Work Phone: 11-11-2013 13:56-0400 Heart rate 406 ms Ana Hankins RN [employer] Work Phone: Encounters Encounter Date Encounter Type Care Provider Facility Start: 09-24-2024 End: 09-24-2024 ambulatory Arpit Gamez RN Work Phone: [facility] [employer] Comment on above: Case Review Start: 07-31-2024 End: 07-31-2024 ambulatory Sanegethalos Turner [facility] [facility] Start: 07-31-2024 End: 07-31-2024 Patient encounter procedure Sangeetha Barbara Turner MA [employer] Comment on above: Population Health Na vigation Outreach ([employer] High Risk - Attempt 2) Start: 07-22-2024 End: 07-22-2024 ambulatory Sangeetha Jimenez Turner LINDSEY [employer] Start: 07-22-2024 End: 07-22-2024 Patient encounter procedure Sangeetha Turner MA [employer] Comment on above: Population Health Na vigation Outreach ([employer] High Risk - Attempt 1) Start: 12-11-2023 Patient encounter procedure [facility] Start: 12-08-2023 [facility] Start: 12-07-2023 ambulatory Hans lizbeth Fac ility:[facility] Start: 12-07-2023 End: 12-11-2023 Evaluation and management of inpatient Hans King Facility:[facility] Start: 12-07-2023 Patient encounter procedure [facility] Provider [facility] Start: 09-18-2023 End: 09-18-2023 ambulatory Melvin DUONG Facility:[facility] Start: 09-15-2023 [facility] Start: 09-01-2023 End: 09-01-2023 Emergency department patient visit [facility] Work Phone: Start: 03-22-2023 End: 03-22-2023 ambulatory [facility] Work Phone: Start: 03-22-2023 End: 03-22-2023 Departed Referred [facility] Start: 12-16-2022 End: 12-16-2022 ambulatory [facility] Work Phone: Start: 12-16-2022 End: 12-16-2022 Departed Referred [facility] Start: 10-31-2022 End: 10-31-2022 ambulatory [facility] Work Phone: Start: 10-31-2022 End: 10-31-2022 Departed Referred [facility] Start: 09-19-2022 End: 09-19-2022 ambulatory [facility] Work Phone: Start: 09-19-2022 End: 09-19-2022 Departed Referred [facility] Start: 06-22-2022 End: 06-22-2022 ambulatory [facility] Work Phone: Start: 06-22-2022 End: 06-22-2022 Departed Referred [facility] Start: 03-22-2022 End: 03-22-2022 ambulatory [facility] Work Phone: Start: 03-22-2022 End: 03-22-2022 Departed Referred [facility] Start: 12-23-2021 End: 12-23-2021 ambulatory [facility] Work Phone: Start: 12-23-2021 End: 12-23-2021 Departed Referred [facility] Start: 12-23-2021 Registered Referred [facility] Start: 10-20-2021 Non-patient / Non-visit [facility] Start: 10-20-2021 End: 10-25-2021 [facility] Start: 10-20-2021 [facility] Start: 10-13-2021 Non-patient / Non-visit [facility] Start: 10-13-2021 [facility]istered [facility] Start: 10-13-2021 End: 10-13-2021 Departed Referred [facility] Start: 09-29-2021 End: 09-29-2021 Departed Referred [facility] Start: 09-29-2021 Registered Referred [facility] Start: 09-25-2021 End: 09-25-2021 Departed Referred [facility] Start: 08-17-2021 End: 08-17-2021 Patient encounter procedure [facility] Start: 08-10-2021 End: 08-10-2021 Departed Referred [place] [address] Start: 08-10-2021 Registered Referred [place] [address] Start: 07-26-2021 End: 07-26-2021 Departed Referred [facility] 300 Start: 07-26-2021 Registered Referred [place] 300 Start: 07-19-2021 End: 07-19-2021 Departed Referred [facility] 300 Start: 07-19-2021 Registered Referred [place] 300 Start: 07-16-2021 End: 07-16-2021 Departed Referred [facility] 300 Start: 07-16-2021 Registered Referred [place] [id number] Start: 07-15-2021 Non-patient / Non-visit [facility] Start: 07-15-2021 Non-patient / Non-visit [facility] Start: 07-14-2021 Non-patient / Non-visit [facility]patient [facility] Start: 07-13-2021 Non-patient / Non-visit [facility] Start: 07-13-2021 Non-patient / Non-visit [facility] Start: 07-12-2021 Non-patient / Non-visit [facility] Start: 07-12-2021 End: 07-15-2021 Evaluation and management of inpatient [facility] Start: 07-12-2021 End: 07-12-2021 Patient encounter procedure [facility] Start: 07-07-2021 End: 07-13-2021 Evaluation and management of inpatient [facility]Trans[facility] Start: 07-07-2021 Non-patient / Non-visit [facility] Start: 07-06-2021 Non-patient / Non-visit [facility] Start: 07-05-2021 Non-patient / Non-visit [facility]patient [facility] Start: 07-05-2021 End: 07-07-2021 Evaluation and management of inpatient [facility]-Medical Surgical 3 Start: 06-21-2021 End: 06-21-2021 [facility] Start: 05-21-2021 End: 05-21-2021 Patient encounter procedure [facility]Laboratory, Specimen Start: 05-17-2021 End: 06-14-2021 [facility] Start: 11-20-2017 End: 11-27-2017 Evaluation and management of inpatient WINIFRED BRYANTJosé Miguel [place] Facility:[facility] Procedures Date Procedure Procedure Detail Performing Clinician Start: 09-01-2023 MRI of lower extremity Start: 09-01-2023 Plain X-ray of femur Start: 09-01-2023 Radiologic examination of knee Start: 10-13-2021 Anaerobic microbial culture Melvin Rodriguez n Start: 10-13-2021 Investigation of transfusion reaction Melvin Weber Start: 10-13-2021 Microbial culture, routine Melvin Weber Start: 09-25-2021 Urine culture Melvin Weber Start: 07-15-2021 End: 07-15-2021 Viral antigen assay Melvin Weber Start: 07-13-2021 Bacteria identified in Blood by Culture Melvin Weber Start: 07-12-2021 Magnetic resonance angiography of head without contrast Melvin Weber Start: 07-12-2021 Magnetic resonance angiography of neck without contrast Melvin Weber Start: 07-12-2021 MRI of brain without contrast Melvin Weber Start: 07-11-2021 Urine culture Melvin Weber Start: 2021 SARS-CoV-2 Antigen (Rapid) Melvin Weber Start: 07-06-2021 Urine culture Melvinbernardo Weber Start: 07-05-2021 SARS-CoV-2 Antigen (Rapid) Melvinbernardo Fernandezon Start: 07-05-2021 Radiologic examination of knee Melvin Weber Start: 07-05-2021 CT of head without contrast Melvin Fernandezsaida negron Start: 11-23-2017 Electrocardiogram WINIFRED VICTOR MANUEL Start: 11-19-2017 Electrocardiogram WINIFRED VICTOR MANUEL Start: 12-01-2016 End: 12-01-2016 Dietary management education, guidance, and counseling Liana Joshi Start: 12-01-2016 End: 12-01-2016 DJN Arpit Sy MD Work Phone: Start: 12-01-2016 End: 12-01-2016 Follow Up Appt 6 months Arpit Sy MD Work Phone: Start: 07-21-2016 End: 07-21-2016 Follow Up BP Check Arpit Sy MD Work Phone: Start: 07-13-2016 End: 07-13-2016 Urinalysis Ana Hankins RN Start: 07-13-2016 End: 07-13-2016 Follow Up BP Check Arpit Sy MD Work Phone: Start: 07-05-2016 End: 07-14-2016 *BMP Arpit Sy MD Work Phone: Start: 06-13-2016 End: 06-13-2016 Dietary management education, guidance, and counseling Ana Hankins RN Start: 06-13-2016 End: 06-13-2016 MADELEINE Sy MD Work Phone: Start: 06-13-2016 End: 06-13-2016 Follow Up Appt 6 months Arpit Sy MD Work Phone: Start: 06-13-2016 End: 06-13-2016 Follow Up BP Check Arpit Sy MD Work Phone: Start: 12-08-2015 End: 12-08-2015 MADELEINE Sy MD Work Phone: Start: 12-08-2015 End: 12-08-2015 Follow Up Appt 6 months Arpit Sy MD Work Phone: Start: 12-08-2015 End: 06-06-2016 Remote 30 day ecg rev/report Arpit rios MD Work Phone: Start: 06-08-2015 End: 06-08-2015 MADELEINE Sy MD Work Phone: Start: 06-08-2015 End: 06-08-2015 Follow Up Appt 6 months Arpit Sy MD Work Phone: Start: 12-01-2014 End: 12-01-2014 MADELEINE Sy MD Work Phone: Start: 12-01-2014 End: 12-15-2014 Kishan Sy MD Work Phone: Start: 12-01-2014 End: 12-01-2014 Follow Up Appt 6 months Arpit Sy MD Work Phone: Start: 12-01-2014 End: 12-10-2014 Stress Echocardiogram (treadmill) Arpit Sy MD Work Phone: Start: 03-07-2014 End: 03-13-2014 *Microalbumin, Creatine Ratio, rand urine Arpit Sy MD Work Phone: Start: 01-20-2014 End: 05-27-2014 *Hepatic Function Panel Arpit Sy MD Work Phone: Start: 12-23-2013 End: 05-27-2014 Lipid panel [AGGREGATE] Arpit Sy MD Work Phone: Start: 11-25-2013 End: 02-03-2014 Follow Up BP Check Arpit Sy MD Work Phone: Start: 11-25-2013 End: 12-02-2013 Urine, microalbumin Arpit Sy MD Work Phone: Start: 11-11-2013 End: 11-11-2013 DJN Arpit Sy MD Work Phone: Start: 11-11-2013 End: 11-18-2013 Echocardiography Arpit Sy MD Work Phone: Start: 11-11-2013 End: 11-11-2013 Follow Up Appt 1 year Moshe Camarena Work Phone: Start: 11-11-2013 End: 12-04-2013 Stress Echocardiogram (treadmill) Arpit Sy MD Work Phone: Anaerobic microbial culture Investigation of tra nsfusion reaction Microbial culture, routine Urine culture Plan of Treatment Date Care Activity Detail Author Start: 09-01-2023 [facility] Start: 10-13-2021 Anaerobic Culture Anaerobic Culture [facility] Work Phone: Start: 10-13-2021 Microbial culture, routine Wound Culture [facility] Work Phone: Start: 07-14-2017 End: 07-21-2016 *Hepatic Function Panel *Hepatic Function Panel [facility] Work Phone: Start: 07-14-2017 End: 07-21-2016 Lipid panel [AGGREGATE] *Lipid Profile CC PCP [facility] Work Phone: Start: 06-19-2017 End: 06-19-2017 Appointment Appointment [facility] Work Phone: Start: 02-13-2017 End: 02-13-2017 Nuclear stress test -Lexiscan Nuclear stress test -Lexiscan [facility] Work Phone: Start: 12-01-2016 End: 12-01-2016 Appointment Appointment [facility] Work Phone: Start: 12-01-2016 End: 12-01-2016 CELYN CELYN [facility] Work Phone: Start: 12-01-2016 End: 12-01-2016 Follow Up Appt 6 months Follow Up Appt 6 months [facility] Work Phone: Start: 07-21-2016 End: 07-21-2016 Follow Up BP Check Follow Up BP Check [facility] Work Phone: Start: 07-13-2016 End: 07-13-2016 Follow Up BP Check Follow Up BP Check [facility] Work Phone: Start: 07-05-2016 End: 07-14-2016 *BMP *BMP [facility] Work Phone: Start: 06-13-2016 End: 06-13-2016 MADELEINE TAN [facility] Work Phone: Start: 06-13-2016 End: 06-13-2016 Follow Up Appt 6 months Follow Up Appt 6 months [facility] Work Phone: Start: 06-13-2016 End: 06-13-2016 Follow Up BP Check Follow Up BP Check [facility] Work Phone: Start: 12-08-2015 End: 12-08-2015 MADELEINE DJN [facility] Work Phone: Start: 12-08-2015 End: 12-08-2015 Follow Up Appt 6 months Follow Up Appt 6 months [facility] Work Phone: Start: 12-08-2015 End: 12-08-2015 Remote 30 day ecg rev/report 30 Day Holter Monitor [facility] Phone: Start: 06-08-2015 End: 06-08-2015 MADELEINE SALVADOR [facility] Phone: Start: 06-08-2015 End: 06-08-2015 Follow Up Appt 6 months Follow Up Appt 6 months [employer] Work Phone: Start: 12-01-2014 End: 12-01-2014 MADELEINE SALVADOR [employer] Work Phone: Start: 12-01-2014 End: 12-01-2014 Echocardiography Echocardiogram (complete) [facility] Phone: Start: 12-01-2014 End: 12-01-2014 Follow Up Appt 6 months Follow Up Appt 6 months [facility] Phone: Start: 12-01-2014 End: 12-01-2014 Stress Echocardiogram (treadmill) Stress Echocardiogram (treadmill) [facility] Phone: Start: 03-07-2014 End: 03-07-2014 *Microalbumin, Creatine Ratio, rand urine *Microalbumin, Creatine Ratio, rand urine [employer] [facility] Phone: Start: 01-20-2014 End: 05-27-2014 *Hepatic Function Panel *Hepatic Function Panel [facility] Phone: Start: 12-23-2013 End: 05-27-2014 Lipid panel [AGGREGATE] *Lipid Profile CC PCP [employer] [facility] Phone: Start: 11-25-2013 End: 02-03-2014 Follow Up BP Check Follow Up BP Check [employer] Phone: Start: 11-25-2013 End: 12-02-2013 Urine, microalbumin *Urine, Microalbumin [facility] Phone: Start: 11-11-2013 End: 11-11-2013 MADELEINE SALVADOR [employer] Work Phone: Start: 11-11-2013 End: 11-11-2013 Echocardiography Echocardiogram (complete) [facility] Work Phone: Start: 11-11-2013 End: 11-11-2013 Follow Up Appt 1 year Follow Up Appt 1 year [facility] Work Phone: Start: 11-11-2013 End: 11-11-2013 Stress Echocardiogram (treadmill) Stress Echocardiogram (treadmill) [facility] Work Phone: Patient Education [facility] Work Phone: Patient referral [facility] Work Phone: Immunizations Immunization Date Immunization Notes Care Provider [facility] 03-18-2021 Covid (Moderna) [facility] 09-30-2020 [facility] Work Phone: 09-30-2020 pneumococcal vaccine , unspecified formulation [facility] 07-02-2020 Covid (Moderna) [facility] 06-04-2020 Covid (Moderna) [facility] 05-01-2017 Influenza virus vaccine [facility] 03-28-2017 influenza, injectabl e, quadrivalent, preservative free [facility] Provider [facility] 11-24-2008 zoster vaccine, live [facility] Provider [facility] Payers Date Payer Category Payer Self-pay [id number] 2017 Medicare AETNA MEDICARE A ETNA MEDICARE PPO [id number] 2017-Present [phone] [address] [place] [address] PPO [id number] 2017 Medicare (Managed Care) AETNA [place] DICARE [id number] 2014 Private Health Insurance Formerly named [facility] [id number] Medicare [id number] Unknown [id number] Unknown [id number] Unknown [id number] Unknown [id number] Unknown [id number] Unknown [id number] Unknown [id number] Unknown [id number] Unknown [id number] Social History Date Type Detail Facility Start: 07-15-2021 End: 09-01-2023 Tobacco smoking status NHIS Unknown if ever smoked [facility] Start: 07-03-2017 None [facility] Start: 07-03-2017 Alone [facility] Start: 07-15-2021 Non-smoker [facility] Start: 1935 Sex Assigned At Female [facility] Start: 1935 Sex Assigned At Not on file [facility] Gender identity Not on file [facility] in Medical Equipment Procedure Code Equipment Code Equipment Origin al Text Equipment Identifier Dates DOUGH,CEMENT 6191-1-010 FDA Start: 06-29-2017 GENDER HOLLIE ALL P NARENDRA PATELLA FDA Start: 06-29-2017 PERSONA ARTICUAL R SURFACE FDA Start: 06-29-2017 PERSONA CEMENTED TIBIA FDA Start: 06-29-2017 PERSONA POROUS M ETAL FEMUR FDA Start: 06-29-2017 DOUGH,CEMENT 6191-1-010 FDA Start: 06-29-2017 GENDER HOLLIE ALL P NARENDRA PATELLA FDA Start: 06-29-2017 PERSONA ARTICUAL R SURFACE FDA Start: 06-29-2017 PERSONA CEMENTED TIBIA FDA Start: 06-29-2017 PERSONA POROUS M ETAL FEMUR FDA Start: 06-29-2017 DOUGH,CEMENT 6191-1-010 FDA Start: 06-29-2017 GENDER HOLLIE ALL P NARENDRA PATELLA FDA Start: 06-29-2017 PERSONA ARTICUAL R SURFACE FDA Start: 06-29-2017 PERSONA CEMENTED TIBIA FDA Start: 06-29-2017 PERSONA POROUS M ETAL FEMUR FDA Start: 06-29-2017 DOUGH,CEMENT 6191-1-010 FDA Start: 06-29-2017 GENDER HOLLIE ALL P NARENDRA PATELLA FDA Start: 06-29-2017 PERSONA ARTICUAL R SURFACE FDA Start: 06-29-2017 PERSONA CEMENTED TIBIA FDA Start: 06-29-2017 PERSONA POROUS M ETAL FEMUR FDA Start: 06-29-2017 DOUGH,CEMENT 6191-1-010 FDA Start: 06-29-2017 GENDER HOLLIE ALL P NARENDRA PATELLA FDA Start: 06-29-2017 PERSONA ARTICUAL R SURFACE FDA Start: 06-29-2017 PERSONA CEMENTED TIBIA FDA Start: 06-29-2017 PERSONA POROUS M ETAL FEMUR FDA Start: 06-29-2017 DOUGH,CEMENT 6191-1-010 FDA Start: 06-29-2017 GENDER HOLLIE ALL P NARENDRA PATELLA FDA Start: 06-29-2017 PERSONA ARTICUAL R SURFACE FDA Start: 06-29-2017 PERSONA CEMENTED TIBIA FDA Start: 06-29-2017 PERSONA POROUS M ETAL FEMUR FDA Start: 06-29-2017 DOUGH,CEMENT 6191-1-010 FDA Start: 06-29-2017 GENDER HOLLIE ALL P NARENDRA PATELLA FDA Start: 06-29-2017 PERSONA ARTICUAL R SURFACE FDA Start: 06-29-2017 PERSONA CEMENTED TIBIA FDA Start: 06-29-2017 PERSONA POROUS M ETAL FEMUR FDA Start: 06-29-2017 DOUGH,CEMENT 6191-1-010 FDA Start: 06-29-2017 GENDER HOLLIE ALL P NARENDRA PATELLA FDA Start: 06-29-2017 PERSONA ARTICUAL R SURFACE FDA Start: 06-29-2017 PERSONA CEMENTED TIBIA FDA Start: 06-29-2017 PERSONA POROUS M ETAL FEMUR FDA Start: 06-29-2017 DOUGH,CEMENT 6191-1-010 FDA Start: 06-29-2017 GENDER HOLLIE ALL P NARENDRA PATELLA FDA Start: 06-29-2017 PERSONA ARTICUAL R SURFACE FDA Start: 06-29-2017 PERSONA CEMENTED TIBIA FDA Start: 06-29-2017 PERSONA POROUS M ETAL FEMUR FDA Start: 06-29-2017 DOUGH,CEMENT 6191-1-010 FDA Start: 06-29-2017 GENDER HOLLIE ALL P NARENDRA PATELLA FDA Start: 06-29-2017 PERSONA ARTICUAL R SURFACE FDA Start: 06-29-2017 PERSONA CEMENTED TIBIA FDA Start: 06-29-2017 PERSONA POROUS M ETAL FEMUR FDA Start: 06-29-2017 DOUGH,CEMENT 6191-1-010 FDA Start: 06-29-2017 GENDER HOLLIE ALL P NARENDRA PATELLA FDA Start: 06-29-2017 PERSONA ARTICUAL R SURFACE FDA Start: 06-29-2017 PERSONA CEMENTED TIBIA FDA Start: 06-29-2017 PERSONA POROUS M ETAL FEMUR FDA Start: 06-29-2017 DOUGH,CEMENT 6191-1-010 FDA Start: 06-29-2017 GENDER HOLLIE ALL P NARENDRA PATELLA FDA Start: 06-29-2017 PERSONA ARTICUAL R SURFACE FDA Start: 06-29-2017 PERSONA CEMENTED TIBIA FDA Start: 06-29-2017 PERSONA POROUS M ETAL FEMUR FDA Start: 06-29-2017 DOUGH,CEMENT 6191-1-010 FDA Start: 06-29-2017 GENDER HOLLIE ALL P NARENDRA PATELLA FDA Start: 06-29-2017 PERSONA ARTICUAL R SURFACE FDA Start: 06-29-2017 PERSONA CEMENTED TIBIA FDA Start: 06-29-2017 PERSONA POROUS M ETAL FEMUR FDA Start: 06-29-2017 DOUGH,CEMENT 6191-1-010 FDA Start: 06-29-2017 GENDER HOLLIE ALL P NARENDRA PATELLA FDA Start: 06-29-2017 PERSONA ARTICUAL R SURFACE FDA Start: 06-29-2017 PERSONA CEMENTED TIBIA FDA Start: 06-29-2017 PERSONA POROUS M ETAL FEMUR FDA Start: 06-29-2017 DOUGH,CEMENT 6191-1-010 FDA Start: 06-29-2017 GENDER HOLLIE ALL P NARENDRA PATELLA FDA Start: 06-29-2017 PERSONA ARTICUAL R SURFACE FDA Start: 06-29-2017 PERSONA CEMENTED TIBIA FDA Start: 06-29-2017 PERSONA POROUS M ETAL FEMUR FDA Start: 06-29-2017 DOUGH,CEMENT 6191-1-010 FDA Start: 06-29-2017 GENDER HOLLIE ALL P NARENDRA PATELLA FDA Start: 06-29-2017 PERSONA ARTICUAL R SURFACE FDA Start: 06-29-2017 PERSONA CEMENTED TIBIA FDA Start: 06-29-2017 PERSONA POROUS M ETAL FEMUR FDA Start: 06-29-2017 DOUGH,CEMENT 6191-1-010 FDA Start: 06-29-2017 GENDER HOLLIE ALL P NARENDRA PATELLA FDA Start: 06-29-2017 PERSONA ARTICUAL R SURFACE FDA Start: 06-29-2017 PERSONA CEMENTED TIBIA FDA Start: 06-29-2017 PERSONA POROUS M ETAL FEMUR FDA Start: 06-29-2017 Functional Status Date Assessment Result Facility 07-15-2021 Functional status Chair [facility] Work Phone: 07-12-2021 Functional status Activity Abili ty With Assist of 1 [facility] Work Phone: 07-07-2021 Functional status Chair [facility] Work Phone: 07-06-2021 Functional status Assistive Deja erica Rolling Walker [facility] Work Phone: Mental Status Date Assessment Result Facility 07-15-2021 Cognitive function Voice/Name [facility] Work Phone: 07-12-2021 Cognitive function Voice/Name [facility] Work Phone: 07-07-2021 Cognitive function Voice/Name [facility] Work Phone: Clinical Notes 12-11-2023 to 09-24-2024 Arpit Gamez RN - 09/24/2024 10:53 AM Sangeetha Verdin MA - 07/31/2024 9:43 AM Sangeetha Verdin MA - 07/22/2024 4:09 PM EDT Note Date & Type Note Facility 09-24-2024 Note HNO ID: [id number] Author: ARPIT GAMEZ RN Service: ? Author Type: Registered Nurse Type: Progress Notes Filed: 09/24/2024 10:53 Note Text: Value Based Care Coordination Chart Review Provider Action / FYI: N/A Upon review of patient chart, the patient is excluded from Chronic Disease Management Patient is not a candidate for CDM at this time and placed in the following status: Deferred Appears to be either a QAI PCP, OON PCP, or no PCP noted. Action taken: No action needed . Arpit Gamez RN September 24, 2024 10:53 AM [facility] 09-24-2024 History of Present illness Narrative Value Based Care Coordination Chart Review Provider Action / FYI: N/A Upon review of patient chart, the patient is excluded from Chronic Disease Management Patient is not a candidate for CDM at this time and placed in the following status: Deferred Appears to be either a QAI PCP, OON PCP, or no PCP noted. Action taken: No action needed . Arpit Gamez RN September 24, 2024 10:53 AM documented in this encounter [facility] 09-24-2024 Note Patient Outreach (AM BC) SG VELASCO ([id number]) 1935 F Date Time Provider Department 09/24/24 ARPIT GAMEZ AMBG During your visit today, we recorded the following information about you: Arpit Gamez RN 09/24/2024 10:53 AM Signed Value Based Care Coordination Chart Review Provider Action / FYI: N/A Upon review of patient chart, the patient is excluded from Chronic Disease Management Patient is not a candidate for CDM at this time and placed in the following status: Deferred Appears to be either a QAI PCP, OON PCP, or no PCP noted. Action taken: No action needed . Arpit Gamez RN September 24, 2024 10:53 AM Allergies As of Date: 09/24/2024 (Not on File) Date Reviewed: Never Reviewed Reason for Visit: Case Review [3656] Problem List As Of Date: 09/24/2024 (None) Encounter Status:Closed by ARPIT GAMEZ on 09/24/24 [facility] 07-31-2024 Note HNO ID: [id number] Author: SANGEETHA TURNER MA Service: ? Author Type: Fire Observer Type: Progress Notes Filed: 07/31/2024 09:46 Note Text: POPULATION HEALTH NAVIGATION OUTREACH Action/FYI None of the numbers listed are in service. [employer] High Risk No PCP MyChart Reason for Outreach Care Gap/HCC or Scheduling Wellness Visits Care Gaps due: Establish Care Appointment Patient Contacted: Unable or unnecessary to reach patient: Unable to leave message Navigation Signature: Sangeetha uTrner MA July 31, 2024 9:44 AM [facility] 07-31-2024 History of Present illness Narrative POPULATION HEALTH NAVIGATION OUTREACH Action/FYI None of the numbers listed are in service. [employer] High Risk No PCP MyChart Reason for Outreach Care Gap/HCC or Scheduling Wellness Visits Care Gaps due: Establish Care Appointment Patient Contacted: Unable or unnecessary to reach patient: Unable to leave message Navigation Signature: Sangeetha Turner MA July 31, 2024 9:44 AM documented in this encounter [facility] 07-31-2024 Note Patient Outreach (NE TNAV) SG VELACSO ([id number]) 1935 F Date Time Provider Department 07/31/24 SANGEETHA TURNER During your visit today, we recorded the following information about you: Sangeetha Turner MA 07/31/2024 9:46 AM Signed POPULATION HEALTH NAVIGATION OUTREACH Action/I None of the numbers listed are in service. [employer] High Risk No PCP MyChart Reason for Outreach Care Gap/HCC or Scheduling Wellness Visits Care Gaps due: Establish Care Appointment Patient Contacted: Unable or unnecessary to reach patient: Unable to leave message Navigation Signature: Sangeetha Turner MA July 31, 2024 9:44 AM Allergies As of Date: 07/31/2024 (Not on File) Date Reviewed: Never Reviewed Reason for Visit: Population Health Navigation Outreach [3910] Cmt: [employer] High Risk - Attempt 2 Problem List As Of Date: 07/31/2024 (None) Encounter Status:Closed by SANGEETHA TURNER on 07/31/24 [facility] 07-22-2024 Note HNO ID: [id number] Author: SANGEETHA TURNER MA Service: ? Author Type: Fire Observer Type: Progress Notes Filed: 07/22/2024 16:12 Note Text: POPULATION HEALTH NAVIGATION OUTREACH Action/I None of the numbers listed are in service. [employer] High Risk No PCP MyChart Reason for Outreach Care Gap/HCC or Scheduling Wellness Visits Care Gaps due: Establish Care Appointment Patient Contacted: Unable or unnecessary to reach patient: Unable to leave message Navigation Signature: Sangeetha Turner MA July 22, 2024 4:09 PM [facility] 07-22-2024 History of Present illness Narrative POPULATION HEALTH NAVIGATION OUTREACH Action/I None of the numbers listed are in service. [employer] High Risk No PCP MyChart Reason for Outreach Care Gap/HCC or Scheduling Wellness Visits Care Gaps due: Establish Care Appointment Patient Contacted: Unable or unnecessary to reach patient: Unable to leave message Navigation Signature: Sangeetha Turner MA July 22, 2024 4:09 PM documented in this encounter [facility] 07-22-2024 Note Patient Outreach (NE TNAV) SG VELASCO ([id number]) 1935 F Date Time Provider Department 07/22/24 SANGEETHA TURNER NETNAV During your visit today, we recorded the following information about you: Sangeetha Turner MA 07/22/2024 4:12 PM Signed POPULATION HEALTH NAVIGATION OUTREACH Action/FYI None of the numbers listed are in service. [employer] High Risk No PCP MyChart Reason for Outreach Care Gap/HCC or Scheduling Wellness Visits Care Gaps due: Establish Care Appointment Patient Contacted: Unable or unnecessary to reach patient: Unable to leave message Navigation Signature: Sangeetha Turner MA July 22, 2024 4:09 PM Allergies As of Date: 07/22/2024 (Not on File) Date Reviewed: Never Reviewed Reason for Visit: Population Health Navigation Outreach [3910] Cmt: [employer] High Risk - Attempt 1 Problem List As Of Date: 07/22/2024 (None) Encounter Status:Closed by SANGEETHA TURNER on 07/22/24 [facility] 12-11-2023 Note [facility] Medical Records Department [address] [place] [address] Discharge Summary 12/11/23 1612 MR#: [id number] Acct: [id number] Name: SG VELASCO Rep #: [id number] : 1935 88 From: Ethan Aguilar MD PCP: Dr. Melvin Weber MD Status:ADM IN Location: [facility] DI532-2 Providers Date of Admission: 12/07/23 Primary Care Physician: Dr. Melvin Weber MD Consultations 12/07/23 22:19 Consult: Orthopedics Routine Consulting Provider: Domingo Calloway Reason for Consult: right hip fracture EMERGENT Consult: No Notified: Yes Date Notified: 12/07/23 Time Notified: 20:51 Method of Notification: Verbal 12/07/23 22:45 Consult: Anesthesia Routine Comment: Reason For Exam: preoperative clearance Reason for Consult: preoperative clearance EMERGENT Consult: No MD Notified: Yes Date Notified: 12/07/23 Time Notified: 22:45 Method of Notification: Answering Service 12/08/23 00:53 Consult: Onc/Wound/night guard Routine Comment: Reason for Consult:: Right great toe; blackened area Reason For Visit: RIGHT HIP FRACTURE Diagnosis Discharge Diagnosis (1) Fracture of right hip: Status: Acute Code(s): S72.001A - Fracture of unspecified part of neck of right femur, initial encounter for closed fracture Qualifiers: Encounter type: initial encounter Fracture type: closed Qualified Code(s): S72.001A - Fracture of unspecified part of neck of right femur, initial encounter for closed fracture (2) Encephalopathy acute: Status: Acute Code(s): G93.40 - Encephalopathy, unspecified (3) Anemia: Status: Acute Code(s): D64.9 - Anemia, unspecified Medications at Discharge Home Medications levothyroxine 200 mcg tablet 200 mcg PO DAILY thyroid 09/21/20 menthol 0.44 %-zinc oxide 20.6 % topical ointment (Calmoseptine) 1 applic topical TID skin protectant 07/07/21 polyethylene glycol 3350 17 gram oral powder packet 17 g PO DAILY PRN CONSTIPATION 07/12/21 acetaminophen 325 mg tablet 650 mg PO Q4H PRN fever or pain 09/01/23 albuterol sulfate 0.63 mg/3 mL solution for nebulization 0.63 mg inhalation Q4H PRN shortness of breath or wheezing 09/01/23 apixaban 5 mg tablet (Eliquis) 5 mg PO BID 09/01/23 loratadine 10 mg tablet (Allerclear) 10 mg PO DAILY PRN allergy symptoms 09/01/23 losartan 50 mg tablet 50 mg PO DAILY 09/01/23 metoprolol tartrate 25 mg tablet 25 mg PO BID 09/01/23 triamcinolone acetonide 0.1 % topical ointment 1 applic topical Q12H PRN itching 09/01/23 acetaminophen 650 mg rectal suppository 650 mg TN Q4H 12/07/23 furosemide 20 mg tablet 20 mg PO DAILY 12/07/23 hyoscyamine sulfate 0.125 mg tablet (Levsin) 0.125 mg PO Q2H PRN congestion 12/07/23 hyoscyamine sulfate 0.125 mg tablet (Levsin) 0.125 mg PO Q2H PRN congestion 12/08/23 losartan 25 mg tablet 25 mg PO DAILY HYPERTENSION 12/08/23 fosfomycin tromethamine 3 gram oral packet 1 packet PO QODAY 2 doses #2 ea 12/11/23 Hospital Course Operations - ( Right hip open reduction internal fixation, intramedullary nail fixation, locked) Procedures None Summary of Care Provided Minutes Spent on Discharge: 36 Hospital Course: Per HPI: SG VELASCO, is a 88 F who presented to [facility] ED on 12/07/2023 from long-term for right hip pain after fall. Saw patient at bedside in the ED, 2 sons present. Patient was somnolent and not responding to any verbal commands, did have some response to tactile stimulation. She otherwise was laying back comfortably and in no acute distress. History was gathered from patient's sons and ED physician. Patient has history of severe dementia and lives in a long-term. She is nonverbal at baseline but does make appropriate eye contact and is able to feed herself slowly with supervision. Patient apparently had a soft fall either out of bed or out of the Sonny lift at the long-term yesterday. She was seen by staff there and initially was not sent to the ED due to concern that she would not be an operative candidate given her severe dementia. However, family wished for patient to be further evaluated in the ED in case she could be an operative candidate. ED physician spoke with Dr. Domingo Calloway who said she is an operative candidate. Noted that patient is on Eliquis for A-fib, with last dose being on morning of 12/06. Per Dr. Calloway, would need medical clearance and anesthesia evaluation prior to surgery as well as time for Eliquis to washout, so tentative plan is for surgery on Friday 12/08. Family was agreeable with this plan. Vitals in the ED were notable for low-grade temp and A-fib with rate in the low 100s, otherwise unremarkable. Labs notable for hemoglobin 8.6 (baseline around 10), otherwise unremarkable. UA with 500 leukocyte esterase, negative nitrates, 4+ bacteria. Hip/pelvis and femur x-rays showed an acute impacted intertrochanteric right hip fract (more content not included)... [facility] Evaluation note Diagnosis Onset Date Debility acute Knee effusion acute Left knee DJD acute Fall resolved Allergic rhinitis acute Alzheimer disease acute Atrial fibrillation acute Debility acute Effusion, left knee acute Hypothyroidism acute Left knee DJD acute Osteoporosis acute Overactive bladder acute Rheumatoid arthritis acute Urinary tract infection acut e Hypertension chronic Debility acute Deep vein thrombosis acute Encephalopathy acute acute Infarction of left basal ganglia acute Atrial fibrillation chronic Hyperlipidemia chronic Hypertension chronic Hypothyroidism chronic Paroxysmal atrial fibrillation chronic [facility] Work Phone: Evaluation note* Diagnosis Onset Date Resolution Status Debility acute Knee effusion acute Left knee DJD acute Fall resolved Allergic rhinitis acute Alzheimer disease acute Atrial fibrillation acute Debility acute Effusion, left knee acute Hypothyroidism acute Left knee DJD acute Osteoporosis acute Overactive bladder acute Rheumatoid arthritis acute Urinary tract infection acut e Hypertension chronic Debility acute Deep vein thrombosis acute Encephalopathy acute acute Infarction of left basal ganglia acute Atrial fibrillation chronic Hyperlipidemia chronic Hypertension chronic Hypothyroidism chronic Paroxysmal atrial fibrillation chronic Alzheimer disease acute Decubitus ulcer of left heel, stage 2 acute Decubitus ulcer of right buttock, stage 2 acute Decubitus ulcer of right heel, stage 3 acute Encephalopathy acute acute Infarction of left basal ganglia acute Overactive bladder acute Right ischial pressure sore, stage 2 acute Skin tear of left forearm without complication acute Skin tear of right forearm without complication acute [facility] Work Phone: Evaluation note* Diagnosis Onset Date Resolution Status Alzheimer disease acute Decubitus ulcer of left heel, stage 2 acute Decubitus ulcer of right buttock, stage 2 acute Decubitus ulcer of right heel, stage 3 acute Encephalopathy acute acute Infarction of left basal ganglia acute Overactive bladder acute Right ischial pressure sore, stage 2 acute Skin tear of left forearm without complication acute Skin tear of right forearm without complication acute [facility] Work Phone: Evaluation noteNo assessment information available [facility] Work Phone: Hospital Discharge instructions Additional Instructions Leg is to be in the immobilizer with the middle of the immobilizer over the knee. Please pay particular attention to the skin exam and the metal rods which may need extra padding to prevent skin breakdown Ice 20-minute sessions 5 times a day for the first 3 days Assess distal leg for adequate circulation multiple times per day Please follow-up with orthopedics in 1 week No weightbearing allowedWooOhio[facility] Work Phone: Summary Purpose Family History No Family History Records Found Relationship Condition Age at Onset Recorded Date/T art father Cerebrovascular accident (CVA) Unknown mother Malignant neoplasm Unknown Advance Directives No Advanced Directives Records Found Advance Directive Response Recorded Date/ Time Name of Medical Power of Sea Kayaking Guide Nash Velasco July 05, 2021 6:04pm Name of Medical Power of Sea Kayaking Guide Nash Velasco 2021 2:54pm Living Will Yes July 12 6:14pm Power of Sea Kayaking Guide Yes July 12, 2021 6:14pm Advance Directive Response Recorded Date/ Time Living Will Yes July 12 6:14pm Power of Sea Kayaking Guide Yes July 12, 2021 6:14pm Advance Directive Response Recorded Date/ Time Living Will Yes July 12 5:14pm Power of Sea Kayaking Guide Yes July 12, 2021 5:14pm Advance Directive Response Recorded Date/ Time Living Will Yes September 01, 2023 3:05pm Power of Sea Kayaking Guide Yes August 31 3:05pm Name of Medical Power of Sea Kayaking Guide eliel grimm September 01, 2023 3:05pm Chief Complaint and Reason for Visit Chief Complaint S/O INR- ADD ADDT FR OM DR MOORE 05/17/21 COVID TEST S/O INR FT ADULT, FALL W/ L KNEE PAIN FT ADULT, FALL W/ L KNEE PAIN FT ADULT, FALL W/ L KNEE PAIN FT ADULT, FALL W/ L KNEE PAIN FT ADULT/ LEFT KNEE PAIN CVA CVA ACUTE LEFT BASAL GANGLION INFARCT, ENCEPHALOPATHY Cerebrovascular accident Cerebrovascular accident Cerebrovascular accident [facility] WORK [facility] B[facility]ODWORK S/O- PAIN COPY PCP Reason for Visit Debility Knee effusion Left knee DJD Fall Allergic rhinitis Alzheimer disease Atrial fibrillation Debility Effusion, left knee Hypothyroidism Left knee DJD Osteoporosis Overactive bladder Rheumatoid arthritis Urinary tract infection Hypertension Debility Deep vein thrombosis Encephalopathy acute Infarction of left basal ganglia Atrial fibrillation Hyperlipidemia Hypertension Hypothyroidism Paroxysmal atrial fibrillation Chief Complaint S/O INR FT ADULT, FALL W/ L KNEE PAIN FT ADULT, FALL W/ L KNEE PAIN FT ADULT, FALL W/ L KNEE PAIN FT ADULT, FALL W/ L KNEE PAIN FT ADULT/ LEFT KNEE PAIN CVA CVA ACUTE LEFT BASAL GANGLION INFARCT, ENCEPHALOPATHY Cerebrovascular accident Cerebrovascular accident Cerebrovascular accident [facility] WORK [facility] BLOODWORK S/O- PAIN COPY PCP [facility] LAB WORK [facility] Reason for Visit Debility Knee effusion Left knee DJD Fall Allergic rhinitis Alzheimer disease Atrial fibrillation Debility Effusion, left knee Hypothyroidism Left knee DJD Osteoporosis Overactive bladder Rheumatoid arthritis Urinary tract infection Hypertension Debility Deep vein thrombosis Encephalopathy acute Infarction of left basal ganglia Atrial fibrillation Hyperlipidemia Hypertension Hypothyroidism Paroxysmal atrial fibrillation Chief Complaint S/O INR FT ADULT, FALL W/ L KNEE PAIN FT ADULT, FALL W/ L KNEE PAIN FT ADULT, FALL W/ L KNEE PAIN FT ADULT, FALL W/ L KNEE PAIN FT ADULT/ LEFT KNEE PAIN CVA CVA ACUTE LEFT BASAL GANGLION INFARCT, ENCEPHALOPATHY Cerebrovascular accident Cerebrovascular accident Cerebrovascular accident [facility] LAB WORK [facility] LABWORK [facility] BLOODWORK S/O- PAIN COPY PCP [facility] LAB WORK [facility] LABWORK [facility] LABWORK wound wound Reason for Visit Debility Knee effusion Left knee DJD Fall Allergic rhinitis Alzheimer disease Atrial fibrillation Debility Effusion, left knee Hypothyroidism Left knee DJD Osteoporosis Overactive bladder Rheumatoid arthritis Urinary tract infection Hypertension Debility Deep vein thrombosis Encephalopathy acute Infarction of left basal ganglia Atrial fibrillation Hyperlipidemia Hypertension Hypothyroidism Paroxysmal atrial fibrillation Alzheimer disease Decubitus ulcer of left heel, stage 2 Decubitus ulcer of right buttock, stage 2 Decubitus ulcer of right heel, stage 3 Encephalopathy acute Infarction of left basal ganglia Overactive bladder Right ischial pressure sore, stage 2 Skin tear of left forearm without complication Skin tear of right forearm without complication Chief Complaint FT ADULT, FALL W/ L KNEE PAIN FT ADULT, FALL W/ L KNEE PAIN FT ADULT, FALL W/ L KNEE PAIN FT ADULT, FALL W/ L KNEE PAIN FT ADULT/ LEFT KNEE PAIN CVA CVA ACUTE LEFT BASAL GANGLION INFARCT, ENCEPHALOPATHY Cerebrovascular accident Cerebrovascular accident Cerebrovascular accident [facility] LAB WORK [facility] BLOODWORK S/O- PAIN COPY PCP [facility] LAB WORK [facility]WORK [facility] LABWORK wound wound wound Reason for Visit Debility Knee effusion Left knee DJD Fall Allergic rhinitis Alzheimer disease Atrial fibrillation Debility Effusion, left knee Hypothyroidism Left knee DJD Osteoporosis Overactive bladder Rheumatoid arthritis Urinary tract infection Hypertension Debility Deep vein thrombosis Encephalopathy acute Infarction of left basal ganglia Atrial fibrillation Hyperlipidemia Hypertension Hypothyroidism Paroxysmal atrial fibrillation Alzheimer disease Decubitus ulcer of left heel, stage 2 Decubitus ulcer of right buttock, stage 2 Decubitus ulcer of right heel, stage 3 Encephalopathy acute Infarction of left basal ganglia Overactive bladder Right ischial pressure sore, stage 2 Skin tear of left forearm without complication Skin tear of right forearm without complication Chief Complaint [facility] K [facility] LABWORK wound wound wound LABWORK Reason for Visit Alzheimer disease Decubitus ulcer of left heel, stage 2 Decubitus ulcer of right buttock, stage 2 Decubitus ulcer of right heel, stage 3 Encephalopathy acute Infarction of left basal ganglia Overactive bladder Right ischial pressure sore, stage 2 Skin tear of left forearm without complication Skin tear of right forearm without complication Chief Complaint [facility] LABWORK [facility] LAB WORK Chief Complaint [facility] LAB WOR K Chief Complaint [facility] LAB WOR K LABWORK Chief Complaint LABWORK [facility] LAB WORK Chief Complaint LABWORK [facility] LAB WORK [facility] LABWORK Chief Complaint lower ext Additional Source Comments INFORMATION SOURCE (unrecogn ized section and content) DATE CREATED AUTHOR 08/27/2018 [facility] DATE CREATED AUTHOR AUTHOR'S ORGANIZ ATION 08/26/2020 [facility] DATE CREATED AUTHOR AUTHOR'S ORGANIZ ATION 08/24/2024 [facility] DATE CREATED AUTHOR AUTHOR'S ORGANIZ ATION 09/25/2024 [facility] Goals (unrecognized section and content) Goals may be documented in a n alternate sectionGoals may be documented in an alternate sectionGoals may be documented in an alternate sectionGoals may be documented in an alternate sectionGoals may be documented in an alternate sectionGoals may be documented in an alternate sectionGoals may be documented in an alternate sectionGoals may be documented in an alternate sectionGoals may be documented in an alternate sectionGoals may be documented in an alternate sectionGoals may be documented in an alternate sectionGoals may be documented in an alternate sectionGoals may be documented in an alternate sectionGoals may be documented in an alternate sectionGoals may be documented in an alternate sectionGoals may be documented in an alternate sectionGoals may be documented in an alternate section Care Teams (unrecognized sec tion and content) Team Status: Active Member Role Status Dates Melvin DUONG Family Provider Active Melvin Gus RHODA Primary Care Provider Active Team Status: Inactive Member Role Status Dates Melvin DUONG Primary Care Provider Active David DUONG MD Attending Provider Active Team Status: Inactive Member Role Status Dates Melvin DUONG Primary Care Provider Active David DUONG MD Attending Provider, Referring Pr ovider Active Team Status: Inactive Member Role Status Dates Melvin Guschris DUONG Primary Care Provider Active Dr. Arpit Jordan , Emergency Provider Active Source Comments (unrecognize d section and content) In the event this informatio n is protected by the Federal Confidentiality of Alcohol and Drug Abuse Patient Records regulations: The Federal rules restrict any use of the information to criminally investigate or prosecute any alcohol or drug abuse patient.[facility] the event this information is protected by the Federal Confidentiality of Alcohol and Drug Abuse Patient Records regulations: The Federal rules restrict any use of the information to criminally investigate or prosecute any alcohol or drug abuse patient.[facility] HospitalIn the event this information is protected by the Federal Confidentiality of Alcohol and Drug Abuse Patient Records regulations: The Federal rules restrict any use of the information to criminally investigate or prosecute any alcohol or drug abuse patient.[facility] the event this information is protected by the Federal Confidentiality of Alcohol and Drug Abuse Patient Records regulations: The Federal rules restrict any use of the information to criminally investigate or prosecute any alcohol or drug abuse patient.[facility] the event this information is protected by the Federal Confidentiality of Alcohol and Drug Abuse Patient Records regulations: The Federal rules restrict any use of the information to criminally investigate or prosecute any alcohol or drug abuse patient.[facility] the event this information is protected by the Federal Confidentiality of Alcohol and Drug Abuse Patient Records regulations: The Federal rules restrict any use of the information to criminally investigate or prosecute any alcohol or drug abuse patient.[facility]In the event this information is protected by the Federal Confidentiality of Alcohol and Drug Abuse Patient Records regulations: The Federal rules restrict any use of the information to criminally investigate or prosecute any alcohol or drug abuse patient.[facility] the event this information is protected by the Federal Confidentiality of Alcohol and Drug Abuse Patient Records regulations: The Federal rules restrict any use of the information to criminally investigate or prosecute any alcohol or drug abuse patient.[facility] Hospital[facility] the event this information is protected by the Federal Confidentiality of Alcohol and Drug Abuse Patient Records regulations: The Federal rules restrict any use of the information to criminally investigate or prosecute any alcohol or drug abuse patient.[facility] Reason for Visit (unrecogniz ed section and content) Reason Onset Date Comments Population Health Navigation Outreach 07/22/2024 [employer] High Risk - Attempt 1 Reason Onset Date Comments Population Health Navigation Outreach 07/31/2024 [employer] High Risk - Attempt 2 Reason Onset Date Comments Case Review 09/24/2024 FOR RECORDS PERTAINING TO PATIENTS WHO ARE OR HAVE BEEN ENROLLED IN A CHEMICAL DEPENDENCY/SUBSTANCEABUSE PROGRAM, SOME INFORMATION MAY BE OMITTED. This clinical summary was aggregated from multiple sources. Caution should be exercised in using it in the provision of clinical care. This summary normalizes information from multiple sources, and as a consequence, information in this document may materially change the coding, format and clinical context of patient data. In addition, data may be omitted in some cases. CLINICAL DECISIONS SHOULD BE BASED ON THE PRIMARY CLINICAL RECORDS. [facility]. provides no warranty or guarantee of the accuracy or completeness of information in this document.
[2024-12-02 08:52] LABS: Hematocrit 35.0 % (37-47); Hemoglobin 11.4 g/dL (12.0-15.0); Mean Corp Hgb Conc 32.6 g/dL (32-36); Mean Corpuscular Volume 95.9 fL (81-99); Mean Platelet Vol. 11.9 fl (6.2-12.0); Platelet Count 260 K/mm3 (150-450); RBC Distribution Width CV 12.4 % (11.6-14.6); RBC Distribution Width SD 43.4 fl (35.1-43.9); Red Blood Count 3.65 M/mm3 (4.2-5.4); White Blood Count 7.2 K/mm3 (4.4-11.0)
[2024-12-02 09:25] LABS: Anion Gap 10 (5-15); BUN 18 mg/dL (4-19); BUN/Creat Ratio 21.5 RATIO (10-20); Calcium,Total 9.3 mg/dL (7.6-11.0); Carbon Dioxide 26.2 mmol/L (21.0-32.0); Chloride 107 mmol/L (98-108); Glucose 91 mg/dL (70-99); Potassium 4.0 mmol/L (3.3-5.1)
== END ==
LOC: OLS.WCC 04:00
PROVIDERS: PCP Family Medicine; Referring Provider Family Medicine; Visit Provider Family Medicine
DX: I10 Essential (primary) hypertension (principal); Z79.899 Other long term (current) drug therapy
CPT/HCPCS: 36415; 80048; 84443; 85027

== ENCOUNTER → 2024-12-11 | Outpatient (REF) | payer MEDICARE, SELFPAY ==
[2024-12-11 07:25] LABS: Mucous, Urine 0 SEEN /hpf (<or=2+)
[2024-12-11 07:34] LABS: Hematocrit 31.7 % (37-47); Hemoglobin 10.1 g/dL (12.0-15.0); Immature Granulocytes Count 0.070 X10^3/uL (0.0-0.0); Mean Corp Hgb Conc 31.9 g/dL (32-36); Mean Corpuscular Volume 97.8 fL (81-99); Mean Platelet Vol. 11.2 fl (6.2-12.0); NRBC Flagged by Analyzer 0 % (0-5); Platelet Count 221 K/mm3 (150-450); RBC Distribution Width CV 13.2 % (11.6-14.6); RBC Distribution Width SD 47.5 fl (35.1-43.9); Red Blood Count 3.24 M/mm3 (4.2-5.4); White Blood Count 14.4 K/mm3 (4.4-11.0)
[2024-12-11 08:22] LABS: Anion Gap 9 (5-15); BUN 27 mg/dL (4-19); BUN/Creat Ratio 26.7 RATIO (10-20); Calcium,Total 8.5 mg/dL (7.6-11.0); Carbon Dioxide 30.0 mmol/L (21.0-32.0); Chloride 107 mmol/L (98-108); Glucose 97 mg/dL (70-99); Potassium 3.6 mmol/L (3.3-5.1)
[2024-12-11 08:31] LABS: Color, Urine Yellow (Yellow); Glucose, Dipstick Normal (Normal); Ketone-Dipstick Negative (Negative); Leukocyte Esterase-Dipstick 500 /ul (Negative); Nitrite-Dipstick Negative (Negative); Occult Blood-Urine 25 /ul (Negative); Protein-Dipstick Negative (Negative); Specific Gravity, Urine 1.010 (1.002-1.030); Urine Bilirubin Dipstick Negative (Negative)
[2024-12-11 09:00] LABS: Red Blood Cells-Urine 0-5 SEEN /hpf (0-5)
[2024-12-11 09:01] LABS: Squamous Epithelial Cells - UA 0-5 SEEN /hpf (5-10)
== END ==
LOC: OLS.WCC 05:00
PROVIDERS: PCP Family Medicine; Visit Provider Family Medicine
DX: I48.91 Unspecified atrial fibrillation (principal); R53.83 Other fatigue; I10 Essential (primary) hypertension; E78.5 Hyperlipidemia, unspecified; R39.9 Unspecified symptoms and signs involving the genitourinary system; Z87.440 Personal history of urinary (tract) infections
CPT/HCPCS: 36415; 80048; 81001; 85025; 87077; 87086; 87088; 87186

== ENCOUNTER → 2025-02-26 | Outpatient (REF) | payer MEDICARE, SELFPAY | LOC: OLS.WCC 05:00 | PROVIDERS: PCP Family Medicine; Visit Provider Family Medicine | DX: E03.9 Hypothyroidism, unspecified (principal) | CPT/HCPCS: 36415; 84443 ==